=== PATIENT | male | born 1925 | race Caucasian/White ===

== ENCOUNTER 2017-03-24 21:10 | Inpatient (IN) | payer MEDICARE, BC ==
[~2017-03-24] VITALS: Ht 185.4 cm; Wt 84.9 kg
[~2017-03-24 21:10] MED LIST: ACAR50TA PO; ASPI81TA82 PO; HYDR5TAB64 PO; LANTUS2P SC; LISI-360 PO; METO50CR PO; OCUVTAB4 PO
[2017-03-24 21:28] VITALS: BP 158/85; PULSE 103; RESP 20; TEMP 98.9; O2SAT 94
[2017-03-24 21:36] VITALS: O2SAT 94
[2017-03-24] MEDS ORDERED: SODIUM CHLORIDE 0.9% FLUSH 10 ML FLUSH IVF PRN (21:45)
[2017-03-24] MEDS ORDERED: METF500T4 PO (21:46)
[2017-03-24] MEDS ORDERED: CLON0.1T PO (21:46)
[2017-03-24] MEDS ORDERED: ASPI81CH CHEW (21:46)
[2017-03-24] MEDS ORDERED: ACAR50TA PO (21:46)
[2017-03-24] MEDS ORDERED: HYDR5TAB64 PO (21:46)
[2017-03-24] MEDS ORDERED: METO50TA11 PO (21:46)
[2017-03-24] MEDS ORDERED: GLYB5TAB3 PO (21:46)
[2017-03-24] MEDS ORDERED: LISI10TA3 PO (21:46)
[2017-03-24] MEDS ORDERED: PRESCAP (21:46)
[2017-03-24] MEDS ORDERED: MIRA25TA PO (21:46)
--- NOTE | 2017-03-24 21:56 | RADRPT ---
EXAM DATE/TIME: 03/24/2017 21:46 [facility] COMPARISON: No previous studies available for comparison. INDICATIONS : Syncope. Altered mental status. MEDICAL HISTORY : Hypertension. SURGICAL HISTORY : None. ENCOUNTER: Initial ACUITY: 1 day PAIN SCORE: Non-responsive. LOCATION: Bilateral chest FINDINGS: A single view of the chest demonstrates bibasilar patchy densities. Tortuous thoracic aorta. Heart no rmal in size. The cardiomediastinal contours are unremarkable. Osseous structures are intact. CONCLUSION: Bibasilar patchy infiltrate. Kris Levin MD on March 24, 2017 at 21:53 Board Certified Radiologist. This report was verified electronically.
--- NOTE | 2017-03-24 22:27 | RADRPT ---
EXAM DATE/TIME: 03/24/2017 22:08 [facility] COMPARISON: CT BRAIN W/O CONTRAST, February 19, 2016, 18:09. INDICATIONS : Altered mental status. RADIATION DOSE: 46.81 CTDIvol (mGy) MEDICAL HISTORY : Hypertension. Hernia, hiatal. Benign prostatic hyperplasia, (BPH) SURGICAL HISTORY : Tonsillectomy. ENCOUNTER: Initial ACUITY: 1 day PAIN SCALE: 0/10 LOCATION: cranial TECHNIQUE: Multiple contiguous axial images were obtained of the head. Using automated exposure control and adj ustment of the mA and/or kV according to patient size, radiation dose was kept as low as reasonably a chievable to obtain optimal diagnostic quality images. FINDINGS: CEREBRUM: The ventricles are normal for age. No evidence of midline shift, mass lesion, hemorrhage or acute in farction. No extra-axial fluid collections are seen. POSTERIOR FOSSA: The cerebellum and brainstem are intact. The 4th ventricle is midline. The cerebellopontine angle i s unremarkable. EXTRACRANIAL: The visualized portion of the orbits is intact. SKULL: The calvaria is intact. No evidence of skull fracture. CONCLUSION: No acute intracranial disease. Kris Levin MD on March 24, 2017 at 22:24 Board Certified Radiologist. This report was verified electronically.
[2017-03-24 22:29] LABS: BACTERIA, URINE OCC /hpf; BLOOD, URINE TRACE (NEG); GLUCOSE,URINE 1000 mg/dL (NEG); KETONE, URINE TRACE mg/dL (NEG); NITRITE,URINE NEG (NEG); URINE COLOR LIGHT-YELLOW (YELLW/STRAW)
[2017-03-24 22:30] LABS: COMMENT (UR) CATH-CULTURE IND; CULTURE IF INDICATED CATH CULTURE IND
[2017-03-24 22:31] LABS: AUTOMATED NEUTROPHIL # 20.8 TH/MM3 (1.8-7.7); BASOPHIL # 0.1 TH/MM3 (0-0.2); BASOPHIL % 0.3 % (0.0-2.0); EOSINOPHIL % 0.1 % (0.0-4.0); HEMATOCRIT 39.7 % (39.0-51.0); LYMPH % 2.2 % (9.0-44.0); LYMPHOCYTE # 0.5 TH/MM3 (1.0-4.8); MEAN CELL VOLUME 87.9 FL (80.0-100.0); MEAN CORPUSCULAR HEMOGLOBIN 29.6 PG (27.0-34.0); MEAN CORPUSCULAR HGB CONC 33.7 % (32.0-36.0); MONO % 5.9 % (0.0-8.0); NEUT % 91.5 % (16.0-70.0); PLATELET COUNT 327 TH/MM3 (150-450); RED BLOOD COUNT 4.52 MIL/MM3 (4.50-5.90); RED CELL DISTRIBUTION WIDTH 14.8 % (11.6-17.2); WHITE BLOOD COUNT 22.8 TH/MM3 (4.0-11.0)
[2017-03-24 22:33] LABS: HEMO FLAGS AUTO DIFF
[2017-03-24] MEDS ORDERED: AZITHROMYCIN INJ 500 MG in SODIUM CHLOR 0.9% 250 ML INJ 250 ML IV ONE (22:45)
[2017-03-24] MEDS ORDERED: cefTRIAXone INJ 1,000 MG in SODIUM CHLORIDE 0.9% INJ 100 ML IV ONE (22:45)
[2017-03-24 22:59] LABS: ALKALINE PHOSPHATASE 90 U/L (45-117); ALT (GPT) 17 U/L (12-78); ANION GAP 8 MEQ/L (5-15); AST (GOT) 37 U/L (15-37); BICARBONATE 26.6 MEQ/L (21.0-32.0); BLOOD UREA NITROGEN 27 MG/DL (7-18); CHLORIDE 100 MEQ/L (98-107); CREATINE KINASE 116 U/L (39-308); GLOMERULAR FILTRATION RATE 77 ML/MIN (>89); POTASSIUM 4.4 MEQ/L (3.5-5.1); SODIUM (NA) 135 MEQ/L (136-145); TOTAL BILIRUBIN ADULT 0.7 MG/DL (0.2-1.0)
[2017-03-24 23:00] LABS: BANDS 3 % (0-6); NEUTROPHIL # MANUAL DIFF 21.2 TH/MM3 (1.8-7.7); POLYS (SEG NEUTROPHILS) 90 % (16-70); SCAN/DIFF FINAL DIFF MANUAL; WBC DIFF SAMPLE 100
[2017-03-24 23:01] LABS: OVALOCYTES 1+ (NORMAL); PLATELET ESTIMATE SMEAR NORMAL (NORMAL); PLATELET MORPHOLOGY NORMAL (NORMAL)
[2017-03-24 23:02] LABS: ACANTHOCYTES OCC (NORMAL); KERATOCYTES OCC (NORMAL); TOXIC VACUOLATION PRESENT (NONE SEEN)
--- NOTE | 2017-03-24 23:05 | PD ---
HPI Chief Complaint: Altered Mental Status Time Seen by Provider: 21:32 Travel History International Travel<30 days: No Contact w/Intl Traveler<30days: No Traveled to known affect area: No History of Present Illness HPI Patient is a 89 year old male who comes in because his friend found him altered today. Per the friend, she came over to check on him and found him laying on the couch in a very warm house under her blanket. She says that he seemed a little out of it, so she eventually convinced him to come to the emergency department. EMS said that he seemed altered when they arrived, but began to improve with IV fluids and oxygen. He has no complaints at this time. PFSH Past Medical History Hx Anticoagulant Therapy: Yes (162 ASA DAILY) Cardiovascular Problems: Yes (HTN) Diabetes: Yes Patient Takes Glucophage: Yes (03/24/2017) Diminished Hearing: No Genitourinary: Yes (BPH) Hiatal Hernia: Yes Hypertension: Yes Musculoskeletal: Yes (SCIATICA) Immunizations Current: No Ulcer: Yes (H.PYLORI) Tetanus Vaccination: < 5 Years Influenza Vaccination: No Past Surgical History Abdominal Surgery: Yes (PERF STOMACH) Eye Surgery: Yes (CATARACTS) Tonsillectomy: Yes Social History Alcohol Use: No Tobacco Use: No Substance Use: No Allergies-Medications (Allergen,Severity, Reaction): Coded Allergies: No Known Allergies (Verified , 02/19/16) Reported Meds & Prescriptions Reported Meds & Active Scripts Active Reported Myrbetriq (Mirabegron) 25 Mg Tab 25 Mg PO DAILY Glyburide 5 Mg Tab 5 Mg PO DAILY Take with meals at the same time each day Metformin ER (Metformin HCl) 500 Mg Leanne 500 Mg PO BID With evening meal Clonidine (Clonidine HCl) 0.1 Mg Tab 0.1 Mg PO DAILY PRN Preservision Areds (Multiple Vitamins W/ Minerals) 1 Cap Cap BID Aspirin 81 Mg Chew 81 Mg CHEW BID Lisinopril 10 Mg Tab 10 Mg PO HS Metoprolol Succinate ER 24 HR (Metoprolol Succinate) 50 Mg Tab 50 Mg PO BID Acarbose 50 Mg Tab 50 Mg PO AC DINNER Hydrocortisone 5 Mg Tab 5 Mg PO BID Take with food to decrease GI upset Review of Systems ROS Limitations: Altered Mental Status Physical Exam Narrative GENERAL: Awake and alert, in no acute distress. SKIN: Focused skin assessment warm/dry. HEAD: Atraumatic. Normocephalic. EYES: Pupils equal and round. No scleral icterus. Extraocular movements intact. ENT: Mucous membranes pink and moist. NECK: Trachea midline. No JVD. CARDIOVASCULAR: Regular rate and rhythm. No murmur appreciated. RESPIRATORY: No accessory muscle use. Crackles at the bases of both lungs. Breath sounds equal bilaterally. GASTROINTESTINAL: Abdomen soft, non-tender, nondistended. Hepatic and splenic margins not palpable. MUSCULOSKELETAL: No obvious deformities. No clubbing. No cyanosis. No edema. NEUROLOGICAL: Awake and alert. No obvious cranial nerve deficits. Motor grossly within normal limits. Normal speech. PSYCHIATRIC: Appropriate mood and affect; insight and judgment normal. Data Data Last Documented VS Vital Signs Date Time Temp Pulse Resp B/P Pulse Ox O2 Delivery O2 Flow Rate FiO2 03/24/17 21:36 94 Nasal Cannula 2 03/24/17 21:28 98.9 103 20 158/85 Orders Electrocardiogram (03/24/17 21:33) Ammonia (03/24/17 21:33) Complete Blood Count With Diff (03/24/17 21:33) Comprehensive Metabolic Panel (03/24/17 21:33) Creatine Kinase (Cpk) (03/24/17 21:33) Prothrombin Time / Inr (Pt) (03/24/17 21:33) Act Partial Throm Time (Ptt) (03/24/17 21:33) Troponin I (03/24/17 21:33) Thyroid Stimulating Hormone (03/24/17 21:33) Lactic Acid Sepsis Protocol (03/24/17 21:33) Urinalysis - C+S If Indicated (03/24/17 21:33) Ua Includes Microscopic (03/24/17 21:33) Blood Culture (03/24/17 21:33) Chest, Single Ap (03/24/17 21:33) Ct Brain W/O Iv Contrast(Rout) (03/24/17 21:33) Blood Glucose (03/24/17 21:33) Ecg Monitoring (03/24/17 21:33) Iv Access Insert/Monitor (03/24/17 21:33) Oximetry (03/24/17 21:33) Oxygen Administration (03/24/17 21:33) Sodium Chloride 0.9% Flush (Ns Flush) (03/24/17 21:45) Cath For Specimen (03/24/17 21:33) Urine Culture (03/24/17 22:00) Ceftriaxone Inj (Rocephin Inj) (03/24/17 22:45) Azithromycin Inj (Zithromax Inj) (03/24/17 22:45) Admit Order (Ed Use Only) (03/24/17 ) Labs Laboratory Tests Test 03/24/17 03/24/17 21:55 22:00 White Blood Count 22.8 TH/MM3 Red Blood Count 4.52 MIL/MM3 Hemoglobin 13.4 GM/DL Hematocrit 39.7 % Mean Corpuscular Volume 87.9 FL Mean Corpuscular Hemoglobin 29.6 PG Mean Corpuscular Hemoglobin 33.7 % Concent Red Cell Distribution Width 14.8 % Platelet Count 327 TH/MM3 Mean Platelet Volume 8.1 FL Neutrophils (%) (Auto) 91.5 % Lymphocytes (%) (Auto) 2.2 % Monocytes (%) (Auto) 5.9 % Eosinophils (%) (Auto) 0.1 % Basophils (%) (Auto) 0.3 % Neutrophils # (Auto) 20.8 TH/MM3 Lymphocytes # (Auto) 0.5 TH/MM3 Monocytes # (Auto) 1.4 TH/MM3 Eosinophils # (Auto) 0.0 TH/MM3 Basophils # (Auto) 0.1 TH/MM3 CBC Comment AUTO DIFF Differential Total Cells 100 Counted Neutrophils % (Manual) 90 % Band Neutrophils % 3 % Monocytes % 7 % Neutrophils # (Manual) 21.2 TH/MM3 Differential Comment FINAL DIFF MANUAL Toxic Vacuolation PRESENT Platelet Estimate NORMAL Platelet Morphology Comment NORMAL Ovalocytes 1+ Acanthocytes OCC Keratocytes OCC Prothrombin Time 10.9 SEC Prothromb Time International 1.0 RATIO Ratio Activated Partial 30.8 SEC Thromboplast Time Sodium Level 135 MEQ/L Potassium Level 4.4 MEQ/L Chloride Level 100 MEQ/L Carbon Dioxide Level 26.6 MEQ/L Anion Gap 8 MEQ/L Blood Urea Nitrogen 27 MG/DL Creatinine 0.92 MG/DL Estimat Glomerular Filtration 77 ML/MIN Rate Random Glucose 315 MG/DL Calcium Level 8.4 MG/DL Total Bilirubin 0.7 MG/DL Aspartate Amino Transf 37 U/L (AST/SGOT) Alanine Aminotransferase 17 U/L (ALT/SGPT) Alkaline Phosphatase 90 U/L Total Creatine Kinase 116 U/L Troponin I LESS THAN 0.02 NG/ML Total Protein 7.3 GM/DL Albumin 3.0 GM/DL Thyroid Stimulating Hormone 1.000 uIU/ML 3rd Gen Urine Color LIGHT-YELLOW Urine Turbidity HAZY Urine pH 6.0 Urine Specific [place] 1.017 Urine Protein TRACE mg/dL Urine Glucose (UA) 1000 mg/dL Urine Ketones TRACE mg/dL Urine Occult Blood TRACE Urine Nitrite NEG Urine Bilirubin NEG Urine Urobilinogen LESS THAN 2.0 MG/DL Urine Leukocyte Esterase LARGE Urine RBC 13 /hpf Urine WBC 31 /hpf Urine Bacteria OCC /hpf Microscopic Urinalysis Comment CATH-CULTURE IND Lactic Acid Level 1.6 mmol/L Ammonia 27 MCMOL/L MDM Medical Decision Making Medical Screen Exam Complete: Yes Emergency Medical Condition: Yes Medical Record Reviewed: Yes Interpretation(s) ECG shows sinus rhythm at 98, left anterior fascicular block Differential Diagnosis Sepsis versus pneumonia versus UTI versus ICH versus CVA Narrative Course Patient is an 89-year-old male comes in due to altered mental status. Exam shows crackles at the bases of both lungs, patient was hypoxic without supplemental oxygen. IV established, labs sent. Patient connected to the conveyor monitor, given oxygen via nasal cannula. Labs show an elevated white blood cell count 22.8. Urinalysis is positive for infection. X-ray shows bilateral lower lobe infiltrates. Patient given Rocephin and azithromycin. Given IV fluids. Patient admitted for further management. Diagnosis Primary Impression: Pneumonia Qualified Code: J18.9 - Pneumonia of both lower lobes due to infectious organism Additional Impressions: UTI (urinary tract infection) Qualified Code: N30.00 - Acute cystitis without hematuria Hypoxia Admitting Information Admitting Physician Requests: Admit Kika Das MD March 24, 2017 23:05
[2017-03-24 23:15] LABS: APTT (PATIENT) 30.8 SEC (24.3-30.1); PROTHROMBIN TIME - PATIENT 10.9 SEC (9.8-11.6)
[2017-03-24] MEDS ORDERED: GLUCAGON 1 MG/ML VIAL OTHER PRN (23:30)
[2017-03-24] MEDS ORDERED: SODIUM CHLORIDE 0.9% FLUSH 10 ML FLUSH IV FLUSH PRN (23:30)
[2017-03-24] MEDS ORDERED: DEXTROSE 50% IN WATER 50 ML VIAL(D50) IV PUSH PRN (23:30)
[2017-03-24] MEDS ORDERED: NALOXONE HCL 0.4 MG/ML AMP IV PRN (23:30)
[2017-03-24] MEDS ORDERED: LEVOFLOXACIN 750 MG PREMIX INJ 150 ML IV SCH (23:30)
[2017-03-25] VITALS (11 sets, daily range): BP systolic 117–150; BP diastolic 57–76; PULSE 84–100; RESP 18; TEMP 97.3–100; O2SAT 92–100
[2017-03-25] MEDS: INSULIN ASPART SUPPLEMENTAL SCALE SQ SCH ×4 (06:14→21:23)
[2017-03-25 06:27] LABS: BICARBONATE 23.5 MEQ/L (21.0-32.0); POTASSIUM 4.6 MEQ/L (3.5-5.1)
[2017-03-25 07:17] LABS: AUTOMATED NEUTROPHIL # 16.6 TH/MM3 (1.8-7.7); BASOPHIL # 0.1 TH/MM3 (0-0.2); BASOPHIL % 0.4 % (0.0-2.0); EOSINOPHIL % 0.2 % (0.0-4.0); HEMATOCRIT 42.1 % (39.0-51.0); HEMO FLAGS DIFF FINAL; LYMPH % 6.3 % (9.0-44.0); LYMPHOCYTE # 1.1 TH/MM3 (1.0-4.8); MEAN CELL VOLUME 87.7 FL (80.0-100.0); MEAN CORPUSCULAR HEMOGLOBIN 29.5 PG (27.0-34.0); MEAN CORPUSCULAR HGB CONC 33.7 % (32.0-36.0); NEUT % 91.1 % (16.0-70.0); PLATELET COUNT 264 TH/MM3 (150-450); RED CELL DISTRIBUTION WIDTH 14.8 % (11.6-17.2); WHITE BLOOD COUNT 18.2 TH/MM3 (4.0-11.0)
[2017-03-25] MEDS: SODIUM CHLORIDE 0.9% FLUSH 10 ML FLUSH IV FLUSH SCH ×2 (08:14→21:00)
[2017-03-25] MEDS ORDERED: PNEUMOCOCCAL POLYVALENT INJ 25 MCG/0.5 ML SYR IM ONE (09:00)
--- NOTE | 2017-03-25 11:00 | HHI.HP ---
HPI Service [facility] Primary Care Physician Chris Leblanc MD Admission Diagnosis pneumonia Diagnoses: Travel History International Travel<30 Days: No Contact w/Intl Traveler <30 Da: No Traveled to Known Affected Are: No History of Present Illness Patient is a 89-year-old male with past medical history of BPH, and labile diabetes, hypertension, history of H. pylori presented to the emergency room with fevers and chills. The LAD at the medical center who happens to visit him was concerned because he was having sweats and was not feeling well. Patient doesn' t quite remember all the events however he tells me he had been having low- grade fevers and sweats which started about noon yesterday. Patient does admit to burning with urination however he states the urinary frequency is normal for him he doesn't recall taking his temperature. He tells me that his blood sugars are very labile and he didn't seem to tolerate the Lantus as an outpatient therefore that was discontinued. He was nauseous earlier today but no vomiting. He denies any chest pain or shortness of breath. He denies any cough. He denies any runny nose but admits to some stuffy nose. No ear pain or sore throat. Review of Systems Except as stated in HPI: all other systems reviewed are Neg Past Family Social History Past Medical History BPH, diabetes, hypertension, history of H. pylori Past Surgical History Stomach perforation, fatty tumor removal Reported Medications Reported Meds & Active Scripts Active Reported Myrbetriq (Mirabegron) 25 Mg Tab 25 Mg PO DAILY Glyburide 5 Mg Tab 5 Mg PO DAILY Take with meals at the same time each day Metformin ER (Metformin HCl) 500 Mg Leanne 500 Mg PO BID With evening meal Clonidine (Clonidine HCl) 0.1 Mg Tab 0.1 Mg PO DAILY PRN Preservision Areds (Multiple Vitamins W/ Minerals) 1 Cap Cap BID Aspirin 81 Mg Chew 81 Mg CHEW BID Lisinopril 10 Mg Tab 10 Mg PO HS Metoprolol Succinate ER 24 HR (Metoprolol Succinate) 50 Mg Tab 50 Mg PO BID Acarbose 50 Mg Tab 50 Mg PO AC DINNER Hydrocortisone 5 Mg Tab 5 Mg PO BID Take with food to decrease GI upset Allergies: Coded Allergies: No Known Allergies (Verified , 02/19/16) Family History Mother in her 50s of an unknown cancer, father had emphysema Social History Quit smoking at age 52 used to smoke on and off as a teenager until then. Used to drink beer but quit at age 52 Denies illegal drug use Physical Exam Vital Signs Vital Signs Date Time Temp Pulse Resp B/P Pulse Ox O2 Delivery O2 Flow Rate FiO2 03/25/17 08:25 Nasal Cannula 2.00 03/25/17 08:03 90 03/25/17 08:00 97.6 89 18 149/63 97 03/25/17 04:00 97.8 93 18 147/76 100 03/25/17 01:06 Nasal Cannula 2.00 03/25/17 00:37 86 03/25/17 00:30 97.3 84 18 117/57 96 03/25/17 00:05 100.0 84 18 134/73 96 Nasal Cannula 2 03/24/17 21:36 94 Nasal Cannula 2 03/24/17 21:36 94 Nasal Cannula 2 03/24/17 21:28 98.9 103 20 158/85 94 Physical Exam GENERAL: This is a well-nourished, well-developed patient, in no apparent distress. SKIN: No rashes, ecchymoses or lesions. Cool and dry. HEAD: Atraumatic. Normocephalic. No temporal or scalp tenderness. EYES: Pupils equal round and reactive. Extraocular motions intact. No scleral icterus. No injection or drainage. ENT: Nose without drainage. Throat without erythema, tonsillar hypertrophy or exudate. Uvula midline. Airway patent. NECK: Trachea midline. No JVD or lymphadenopathy. Supple, nontender, no meningeal signs. CARDIOVASCULAR: Regular rate and rhythm without murmurs RESPIRATORY: ? Faint crackles at the bases. Breath sounds equal bilaterally. No wheezes GASTROINTESTINAL: Abdomen soft, non-tender, nondistended. No palpable masses. No guarding. MUSCULOSKELETAL: Extremities without edema. No joint tenderness, effusion, or edema noted. No calf tenderness. Negative Homans sign bilaterally. NEUROLOGICAL: Awake and alert. Cranial nerves II through XII intact. Motor and sensory grossly within normal limits. Five out of 5 muscle strength in all muscle groups. Normal speech. Laboratory Laboratory Tests Test 03/24/17 03/24/17 03/25/17 21:55 22:00 05:17 White Blood Count 22.8 18.2 Red Blood Count 4.52 4.80 Hemoglobin 13.4 14.2 Hematocrit 39.7 42.1 Mean Corpuscular Volume 87.9 87.7 Mean Corpuscular Hemoglobin 29.6 29.5 Mean Corpuscular Hemoglobin 33.7 33.7 Concent Red Cell Distribution Width 14.8 14.8 Platelet Count 327 264 Mean Platelet Volume 8.1 8.3 Neutrophils (%) (Auto) 91.5 91.1 Lymphocytes (%) (Auto) 2.2 6.3 Monocytes (%) (Auto) 5.9 2.0 Eosinophils (%) (Auto) 0.1 0.2 Basophils (%) (Auto) 0.3 0.4 Neutrophils # (Auto) 20.8 16.6 Lymphocytes # (Auto) 0.5 1.1 Monocytes # (Auto) 1.4 0.4 Eosinophils # (Auto) 0.0 0.0 Basophils # (Auto) 0.1 0.1 CBC Comment AUTO DIFF DIFF FINAL Differential Total Cells 100 Counted Neutrophils % (Manual) 90 Band Neutrophils % 3 Monocytes % 7 Neutrophils # (Manual) 21.2 Differential Comment FINAL DIFF MANUAL Toxic Vacuolation PRESENT Platelet Estimate NORMAL Platelet Morphology Comment NORMAL Ovalocytes 1+ Acanthocytes OCC Keratocytes OCC Prothrombin Time 10.9 Prothromb Time International 1.0 Ratio Activated Partial 30.8 Thromboplast Time Sodium Level 135 138 Potassium Level 4.4 4.6 Chloride Level 100 103 Carbon Dioxide Level 26.6 23.5 Anion Gap 8 12 Blood Urea Nitrogen 27 23 Creatinine 0.92 0.91 Estimat Glomerular Filtration 77 78 Rate Random Glucose 315 285 Calcium Level 8.4 8.6 Total Bilirubin 0.7 Aspartate Amino Transf 37 (AST/SGOT) Alanine Aminotransferase 17 (ALT/SGPT) Alkaline Phosphatase 90 Total Creatine Kinase 116 Troponin I LESS THAN 0.02 Total Protein 7.3 Albumin 3.0 Thyroid Stimulating Hormone 1.000 3rd Gen Urine Color LIGHT-YELLOW Urine Turbidity HAZY Urine pH 6.0 Urine Specific [place] 1.017 Urine Protein TRACE Urine Glucose (UA) 1000 Urine Ketones TRACE Urine Occult Blood TRACE Urine Nitrite NEG Urine Bilirubin NEG Urine Urobilinogen LESS THAN 2.0 Urine Leukocyte Esterase LARGE Urine RBC 13 Urine WBC 31 Urine Bacteria OCC Microscopic Urinalysis Comment CATH-CULTURE IND Lactic Acid Level 1.6 Ammonia 27 Hematology Comments Date/Time Procedure Status Source Growth 03/24/17 22:00 Urine Culture Worksheet Urine Catheterized Urine Pending 03/24/17 21:55 Aerobic Blood Culture Received Blood Peripheral Pending 03/24/17 21:55 Anaerobic Blood Culture Received Blood Peripheral Pending Result Diagram: 03/25/17 0503/25/17516 Imaging Last Impressions Head CT 03/24/172132 Signed Impressions: Service Date/Time: Friday, March 24, 2017 22:08 - CONCLUSION: No acute intracranial disease. Kris Levin MD Chest X-Ray 03/24/172132 Signed Impressions: Service Date/Time: Friday, March 24, 2017 21:46 - CONCLUSION: Bibasilar patchy infiltrate. Kris Levin MD Assessment and Plan Assessment and Plan Sepsis: Patient presented with tachycardia, leukocytosis up to 22.8 with a source of a urinary tract infection and early pneumonia. Patient received Rocephin and azithromycin one-time dose in the emergency room. I will continue IV Rocephin and by mouth azithromycin. Blood cultures negative 1 day and urine culture still pending. Continue to monitor. Encouraged use of incentive spirometer every hour while awake. Continue to monitor white count Leukocytosis: See above UTI: See above monitor. Urine cultures Pneumonia: Chest x-ray personally reviewed by me and is concerning for patchy infiltrates. See above BPH: Stable resume medication diabetes: Resume home medication and cover with low-dose NovoLog sliding scale at her blood sugars. Hypertension: Home medications resumed. Vasotec as needed for elevated blood pressures history of H. pylori: Stable DVT prophylaxis: Lovenox Code Status Full code Discussed Condition With Patient Leslie Aguilar MD March 25, 2017 11:00
[2017-03-25] MEDS ORDERED: GLUCAGON 1 MG/ML VIAL OTHER PRN (12:30)
[2017-03-25] MEDS ORDERED: DEXTROSE 50% IN WATER 50 ML VIAL(D50) IV PRN (12:30)
[2017-03-25] MEDS ORDERED: RESP: ALBUTEROL 2.5 MG/IPRATROPIUM 0.5 MG NEB (PRN) NEB (12:30)
[2017-03-25] MEDS: SODIUM CHLOR 0.9% 1000 ML INJ 1,000 ML IV SCH (13:09)
[2017-03-25] MEDS ORDERED: ENALAPRILAT 1.25 MG/ML VIAL IV PUSH PRN (14:00)
--- NOTE | 2017-03-25 14:18 | EKG ---
Date Performed: 03/24/2017 Time Performed: 21:46:59 PTAGE: 89 years EKG: Sinus rhythm RIGHT BUNDLE BRANCH BLOCK LEFT ANTERIOR FASCICULAR BLOCK LEFT VENTRICULAR HYPERTROPHY AND ST-T LYNNE E POSSIBLE SEPTAL MYOCARDIAL INFARCTION ABNORMAL ECG NO PREVIOUS TRACING DOCTOR: Daniel Figueredo Interpretating Date/Time 03/25/2017 14:16:56
[2017-03-25] MEDS: ENOXAPARIN SODIUM 40 MG/0.4 ML SYRINGE SQ SCH (14:56)
[2017-03-25] MEDS ORDERED: ACARBOSE 50 MG PO SCH (16:00)
[2017-03-25] MEDS: metFORMIN HCL 500 MG TAB PO SCH (16:51)
[2017-03-25] MEDS: METOPROLOL SUCCINATE 50 MG EXTENDED RELEASE TAB PO SCH (21:18)
[2017-03-25] MEDS: HYDROCORTISONE 10 MG TAB PO SCH (21:18)
[2017-03-25] MEDS: ASPIRIN 81 MG CHEW TAB CHEW SCH (21:18)
[2017-03-25] MEDS: LISINOPRIL 10 MG TAB PO SCH (21:19)
[2017-03-25] MEDS: AZITHROMYCIN 250 MG TAB PO SCH (22:09)
[2017-03-25] MEDS: cefTRIAXone INJ 1,000 MG in SODIUM CHLORIDE 0.9% INJ 100 ML IV SCH (22:10)
[2017-03-26] VITALS (9 sets, daily range): BP systolic 140–165; BP diastolic 64–80; PULSE 74–90; RESP 18–19; TEMP 97.5–99.3; O2SAT 92–98
[2017-03-26] MEDS: SODIUM CHLOR 0.9% 1000 ML INJ 1,000 ML IV SCH (01:41)
[2017-03-26] MEDS: INSULIN ASPART SUPPLEMENTAL SCALE SQ SCH ×4 (05:52→21:00)
[2017-03-26 05:55] LABS: AUTOMATED NEUTROPHIL # 8.1 TH/MM3 (1.8-7.7); BASOPHIL % 0.4 % (0.0-2.0); EOSINOPHIL # 0.1 TH/MM3 (0-0.4); HEMATOCRIT 37.4 % (39.0-51.0); HEMO FLAGS DIFF FINAL; LYMPH % 16.1 % (9.0-44.0); LYMPHOCYTE # 1.8 TH/MM3 (1.0-4.8); MEAN CELL VOLUME 87.7 FL (80.0-100.0); MEAN CORPUSCULAR HEMOGLOBIN 29.7 PG (27.0-34.0); MEAN CORPUSCULAR HGB CONC 33.8 % (32.0-36.0); NEUT % 72.5 % (16.0-70.0); PLATELET COUNT 265 TH/MM3 (150-450); RED BLOOD COUNT 4.27 MIL/MM3 (4.50-5.90); WHITE BLOOD COUNT 11.2 TH/MM3 (4.0-11.0)
[2017-03-26 06:22] LABS: BICARBONATE 26.4 MEQ/L (21.0-32.0); POTASSIUM 3.4 MEQ/L (3.5-5.1)
[2017-03-26] MEDS: ASPIRIN 81 MG CHEW TAB CHEW SCH ×2 (09:33→21:25)
[2017-03-26] MEDS: HYDROCORTISONE 10 MG TAB PO SCH ×2 (09:33→21:25)
[2017-03-26] MEDS: TOLTERODINE TARTRATE 2 MG CAP LA PO SCH (09:33)
[2017-03-26] MEDS: glyBURIDE 5 MG TAB PO SCH (09:33)
[2017-03-26] MEDS: SODIUM CHLORIDE 0.9% FLUSH 10 ML FLUSH IV FLUSH SCH ×2 (09:34→21:30)
[2017-03-26] MEDS: metFORMIN HCL 500 MG TAB PO SCH ×2 (09:34→18:20)
[2017-03-26] MEDS: METOPROLOL SUCCINATE 50 MG EXTENDED RELEASE TAB PO SCH ×2 (09:34→21:29)
[2017-03-26] MEDS ORDERED: POTASSIUM CHLORIDE 20 MEQ CONTROLLED RELEASE TAB PO ONE (10:15)
--- NOTE | 2017-03-26 10:32 | HHI.PR ---
Subjective Remarks Follow-up pneumonia. Patient denies chest pain, dyspnea, cough. He states that he feels very tired. Objective Vitals Vital Signs Date Time Temp Pulse Resp B/P Pulse Ox O2 Delivery O2 Flow Rate FiO2 03/26/17 08:12 97.9 90 18 158/74 94 03/26/17 04:00 99.3 79 18 146/65 96 03/26/17 04:00 Nasal Cannula 2.00 03/26/17 00:00 98.2 86 18 146/68 92 03/26/17 00:00 Nasal Cannula 2.00 03/25/17 20:00 Nasal Cannula 2.00 03/25/17 20:00 97.4 96 18 150/71 96 03/25/17 17:48 95 Nasal Cannula 2.00 03/25/17 16:00 97.9 100 18 126/61 95 03/25/17 12:00 98.1 99 18 136/61 92 03/25/17 12:00 Nasal Cannula 2.00 I/O 03/25/17 03/25/17 03/25/17 03/26/17 03/26/17 03/26/17 07:00 15:00 23:00 07:00 15:00 23:00 Intake Total 240 ml 796 ml 360 ml 75 ml Balance 240 ml 796 ml 360 ml 75 ml Intake Oral 240 ml 720 ml 360 ml 75 ml IV Total 76 ml # Voids 2 4 1 2 # Bowel Movements 0 1 0 0 Result Diagram: 03/26/17 0506 03/26/17 0506 Imaging Last Impressions Head CT 03/24/172132 Signed Impressions: Service Date/Time: Friday, March 24, 2017 22:08 - CONCLUSION: No acute intracranial disease. Kris Levin MD Chest X-Ray 03/24/172132 Signed Impressions: Service Date/Time: Friday, March 24, 2017 21:46 - CONCLUSION: Bibasilar patchy infiltrate. Kris Levin MD Objective Remarks General: Elderly male in no acute distress. Heart: Regular rate and rhythm. No murmur. Lungs: Scattered rales. Breathing is nonlabored. Abdomen: Soft, nontender, nondistended. Extremities: No lower extremity edema. Psych: Alert and oriented. Procedures None Urinary Catheter: No Vascular Central Line Catheter: No A/P Problem List: (1) Pneumonia ICD Code: J18.9 Status: Acute (2) UTI (urinary tract infection) ICD Code: N39.0 Status: Acute (3) Hypertension ICD Code: I10 Status: Chronic (4) Diabetes mellitus ICD Code: E11.9 Status: Chronic (5) Sepsis ICD Code: A41.9 Status: Resolved Assessment and Plan 1. Sepsis: Patient presented with tachycardia, leukocytosis. Source is UTI, pneumonia. Continue Rocephin, azithromycin. Blood cultures are negative so far. Urine culture pending. Sepsis has resolved. 2. Leukocytosis: Improving. Monitor labs. Continue antibiotics as above. 3. UTI: Continue Rocephin. Urine culture pending. 4. Pneumonia: Continue antibiotics, oxygen. 5. Diabetes mellitus: Monitor Accu-Cheks and cover with sliding scale insulin. 6. Hypertension: Continue home medications. Vasotec as needed. 7. DVT prophylaxis: Lovenox. Problem Qualifiers (1) Pneumonia: Qualified Code: J18.9 - Pneumonia of both lower lobes due to infectious organism (2) UTI (urinary tract infection): Qualified Code: N30.00 - Acute cystitis without hematuria (3) Diabetes mellitus: Jignesh Ibarra MD March 26, 2017 10:32
[2017-03-26] MEDS: ENOXAPARIN SODIUM 40 MG/0.4 ML SYRINGE SQ SCH (16:23)
[2017-03-26] MEDS: LISINOPRIL 10 MG TAB PO SCH (21:25)
[2017-03-26] MEDS: AZITHROMYCIN 250 MG TAB PO SCH (21:28)
[2017-03-26] MEDS: cefTRIAXone INJ 1,000 MG in SODIUM CHLORIDE 0.9% INJ 100 ML IV SCH (21:29)
[2017-03-27 04:27] VITALS: BP 163/79; PULSE 87; RESP 18; TEMP 97.6; O2SAT 96
[2017-03-27] MEDS: INSULIN ASPART SUPPLEMENTAL SCALE SQ SCH (05:52)
[2017-03-27 08:00] VITALS: BP 150/70; PULSE 90; RESP 18; TEMP 97.5; O2SAT 94
--- NOTE | 2017-03-27 08:24 | HHI.PR ---
Subjective Remarks Follow up pneumonia, hypokalemia, leukocytosis. The patient is feeling better today. He is anxious to go home. Still requiring oxygen intermittently. Concerned about his blood sugar. He states that he normally checks his blood sugar at 1 AM and eats a snack if it is low. Objective Vitals Vital Signs Date Time Temp Pulse Resp B/P Pulse Ox O2 Delivery O2 Flow Rate FiO2 03/27/17 04:27 97.6 87 18 163/79 96 03/27/17 04:00 Nasal Cannula 2.00 03/27/17 00:00 Nasal Cannula 2.00 03/26/17 23:15 97.7 87 18 165/80 93 03/26/17 20:00 Room Air 03/26/17 19:44 97.5 85 18 140/76 93 03/26/17 16:21 97.8 74 18 146/64 92 03/26/17 16:06 94 21 03/26/17 12:33 98.0 90 19 155/75 94 03/26/17 11:50 98 Nasal Cannula 2.00 I/O 03/26/17 03/26/17 03/26/17 03/27/17 03/27/17 03/27/17 07:00 15:00 23:00 07:00 15:00 23:00 Intake Total 75 ml 600 ml 240 ml 0 ml Output Total 3 ml Balance 75 ml 597 ml 240 ml 0 ml Intake Oral 75 ml 600 ml 240 ml 0 ml Output Urine Total 3 ml # Voids 2 5 5 # Bowel Movements 0 0 1 0 Result Diagram: 03/26/17 0506 03/26/17 0506 Imaging Last Impressions Head CT 03/24/172132 Signed Impressions: Service Date/Time: Friday, March 24, 2017 22:08 - CONCLUSION: No acute intracranial disease. Kris Levin MD Chest X-Ray 03/24/172132 Signed Impressions: Service Date/Time: Friday, March 24, 2017 21:46 - CONCLUSION: Bibasilar patchy infiltrate. Kris Levin MD Objective Remarks General: Elderly male in no acute distress. Heart: Regular rate and rhythm. No murmur. Lungs: Scattered rales. Breathing is nonlabored. Abdomen: Soft, nontender, nondistended. Extremities: No lower extremity edema. Psych: Alert and oriented. Procedures None Urinary Catheter: No Vascular Central Line Catheter: No A/P Problem List: (1) Pneumonia ICD Code: J18.9 Status: Acute (2) UTI (urinary tract infection) ICD Code: N39.0 Status: Acute (3) Hypertension ICD Code: I10 Status: Chronic (4) Diabetes mellitus ICD Code: E11.9 Status: Chronic (5) Sepsis ICD Code: A41.9 Status: Resolved Assessment and Plan 1. Sepsis: Patient presented with tachycardia, leukocytosis. Source is UTI, pneumonia. Continue Rocephin, azithromycin. Blood cultures are negative so far. Urine culture pending. Heart rate and WBCs have improved. 2. Leukocytosis: Resolved. Continue antibiotics as above. 3. UTI: Continue Rocephin. Urine culture presumptive ID of Viridans streptococcus. 4. Pneumonia: Improving. Continue antibiotics, oxygen. 5. Diabetes mellitus: Monitor Accu-Cheks and cover with sliding scale insulin. 6. Hypertension: Continue home medications. Vasotec as needed. 7. DVT prophylaxis: Lovenox. 8. Hypokalemia: Labs are pending this morning. Discharge Planning Anticipate discharge home tomorrow if patient continues to improve clinically. Problem Qualifiers (1) Pneumonia: Qualified Code: J18.9 - Pneumonia of both lower lobes due to infectious organism (2) UTI (urinary tract infection): Qualified Code: N30.00 - Acute cystitis without hematuria (3) Diabetes mellitus: Jignesh Ibarra MD March 27, 2017 08:24
[2017-03-27 08:45] LABS: AUTOMATED NEUTROPHIL # 5.8 TH/MM3 (1.8-7.7); BASOPHIL % 0.5 % (0.0-2.0); EOSINOPHIL # 0.4 TH/MM3 (0-0.4); HEMATOCRIT 39.4 % (39.0-51.0); HEMO FLAGS DIFF FINAL; LYMPH % 23.8 % (9.0-44.0); LYMPHOCYTE # 2.3 TH/MM3 (1.0-4.8); MEAN CELL VOLUME 87.9 FL (80.0-100.0); MONO % 12.1 % (0.0-8.0); NEUT % 59.6 % (16.0-70.0); PLATELET COUNT 251 TH/MM3 (150-450); RED BLOOD COUNT 4.48 MIL/MM3 (4.50-5.90); WHITE BLOOD COUNT 9.7 TH/MM3 (4.0-11.0)
[2017-03-27 09:00] LABS: BICARBONATE 28.4 MEQ/L (21.0-32.0); POTASSIUM 3.6 MEQ/L (3.5-5.1)
[2017-03-27] MEDS ORDERED: GLUCAGON 1 MG/ML VIAL OTHER PRN (09:00)
[2017-03-27] MEDS ORDERED: DEXTROSE 50% IN WATER 50 ML VIAL(D50) IV PRN (09:00)
[2017-03-27] MEDS: HYDROCORTISONE 10 MG TAB PO SCH ×2 (09:18→21:46)
[2017-03-27] MEDS: glyBURIDE 5 MG TAB PO SCH (09:18)
[2017-03-27] MEDS: TOLTERODINE TARTRATE 2 MG CAP LA PO SCH (09:18)
[2017-03-27] MEDS: METOPROLOL SUCCINATE 50 MG EXTENDED RELEASE TAB PO SCH ×2 (09:18→21:44)
[2017-03-27] MEDS: metFORMIN HCL 500 MG TAB PO SCH ×2 (09:18→17:10)
[2017-03-27] MEDS: ASPIRIN 81 MG CHEW TAB CHEW SCH ×2 (09:18→21:44)
[2017-03-27] MEDS: SODIUM CHLORIDE 0.9% FLUSH 10 ML FLUSH IV FLUSH SCH ×2 (09:18→21:44)
[2017-03-27 12:00] VITALS: BP 128/62; PULSE 71; RESP 20; TEMP 98; O2SAT 92
[2017-03-27] MEDS: ENOXAPARIN SODIUM 40 MG/0.4 ML SYRINGE SQ SCH (14:58)
[2017-03-27 16:00] VITALS: BP 139/67; PULSE 73; RESP 20; TEMP 97.6; O2SAT 94
[2017-03-27 19:45] VITALS: BP 161/77; PULSE 87; RESP 18; TEMP 98.3; O2SAT 92
[2017-03-27] MEDS: LISINOPRIL 10 MG TAB PO SCH (21:43)
[2017-03-27] MEDS: cefTRIAXone INJ 1,000 MG in SODIUM CHLORIDE 0.9% INJ 100 ML IV SCH (21:44)
[2017-03-27] MEDS: AZITHROMYCIN 250 MG TAB PO SCH (21:50)
[2017-03-27 23:28] VITALS: BP 171/81; PULSE 79; RESP 18; TEMP 98.1; O2SAT 91
[2017-03-28] VITALS: BP 138/56
[2017-03-28 04:08] VITALS: BP 159/79; PULSE 84; RESP 18; TEMP 98.2; O2SAT 92
[2017-03-28] MEDS: TOLTERODINE TARTRATE 2 MG CAP LA PO SCH (08:09)
[2017-03-28] MEDS: SODIUM CHLORIDE 0.9% FLUSH 10 ML FLUSH IV FLUSH SCH (08:09)
[2017-03-28] MEDS: HYDROCORTISONE 10 MG TAB PO SCH (08:09)
[2017-03-28] MEDS: glyBURIDE 5 MG TAB PO SCH (08:09)
[2017-03-28] MEDS: metFORMIN HCL 500 MG TAB PO SCH (08:09)
[2017-03-28] MEDS: METOPROLOL SUCCINATE 50 MG EXTENDED RELEASE TAB PO SCH (08:09)
[2017-03-28] MEDS: ASPIRIN 81 MG CHEW TAB CHEW SCH (08:09)
[2017-03-28 09:16] VITALS: O2SAT 96
[2017-03-28] MEDS ORDERED: CEFU1TAB20 PO (09:55)
[2017-03-28] MEDS ORDERED: AZIT250T3 PO (09:55)
--- NOTE | 2017-03-28 09:56 | HHI.DCPOC ---
Discharge Care Plan Diagnosis: (1) Hypoxia (2) Diabetes mellitus (3) Sepsis (4) UTI (urinary tract infection) (5) Hypertension (6) Pneumonia Goals to Promote Your Health * To prevent worsening of your condition and complications * To maintain your health at the optimal level Directions to Meet Your Goals Take your medications as prescribed Follow your dietary instruction Follow activity as directed Keep your appointments as scheduled Take your immunizations and boosters as scheduled If your symptoms worsen call your PCP, if no PCP go to Urgent Care Center or Emergency Room Smoking is Dangerous to Your Health. Avoid second hand smoke Call the 24-hour hour crisis hotline for domestic abuse at Jignesh Ibarra MD March 28, 2017 09:56
--- NOTE | 2017-03-28 09:59 | HHI.FF ---
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 My clinical findings support the need for the requested home health care services because: High risk of falls I certify that my clinical findings support that this patient is homebound because: Unsteady gait/balance Jignesh Ibarra MD March 28, 2017 09:59
--- NOTE | 2017-03-28 10:01 | HHI.DS ---
Discharge Summary Admission Date March 24, 2017 at 23:11 Discharge Date: March 28, 2017 Admitting Diagnosis pneumonia (1) Pneumonia ICD Code: J18.9 (2) UTI (urinary tract infection) ICD Code: N39.0 (3) Hypertension ICD Code: I10 (4) Diabetes mellitus ICD Code: E11.9 (5) Sepsis ICD Code: A41.9 Procedures None Brief History - From Admission Patient is a 89-year-old male with past medical history of BPH, and labile diabetes, hypertension, history of H. pylori presented to the emergency room with fevers and chills. The LAD at [facility] who happens to visit him was concerned because he was having sweats and was not feeling well. Patient doesn' t quite remember all the events however he tells me he had been having low- grade fevers and sweats which started about noon yesterday. Patient does admit to burning with urination however he states the urinary frequency is normal for him he doesn't recall taking his temperature. He tells me that his blood sugars are very labile and he didn't seem to tolerate the Lantus as an outpatient therefore that was discontinued. He was nauseous earlier today but no vomiting. He denies any chest pain or shortness of breath. He denies any cough. He denies any runny nose but admits to some stuffy nose. No ear pain or sore throat. CBC/BMP: 03/27/17 0742 03/27/17 0742 Significant Findings Laboratory Tests Test 03/26/17 03/27/17 05:06 07:42 White Blood Count 11.2 TH/MM3 (4.0-11.0) Red Blood Count 4.27 MIL/MM3 4.48 MIL/MM3 (4.50-5.90) (4.50-5.90) Hemoglobin 12.7 GM/DL (13.0-17.0) Hematocrit 37.4 % (39.0-51.0) Neutrophils (%) (Auto) 72.5 % (16.0-70.0) Monocytes (%) (Auto) 10.0 % 12.1 % (0.0-8.0) (0.0-8.0) Neutrophils # (Auto) 8.1 TH/MM3 (1.8-7.7) Monocytes # (Auto) 1.1 TH/MM3 1.2 TH/MM3 (0-0.9) (0-0.9) Potassium Level 3.4 MEQ/L (3.5-5.1) Random Glucose 179 MG/DL 225 MG/DL (74-106) (74-106) Calcium Level 8.3 MG/DL (8.5-10.1) Imaging Last Impressions Head CT 03/24/172132 Signed Impressions: Service Date/Time: Friday, March 24, 2017 22:08 - CONCLUSION: No acute intracranial disease. Kris Levin MD Chest X-Ray 03/24/172132 Signed Impressions: Service Date/Time: Friday, March 24, 2017 21:46 - CONCLUSION: Bibasilar patchy infiltrate. Kris Levin MD PE at Discharge General: Elderly male in no acute distress. Heart: Regular rate and rhythm. No murmur. Lungs: Auscultation bilaterally without wheezes, rales, or rhonchi. Breathing is nonlabored. Abdomen: Soft, nontender, nondistended. Extremities: No lower extremity edema. Psych: Alert and oriented. Pt update on day of discharge The patient has no complaints today. He states that he is ready to go home. He has been walking around the room with a walker. Denies dyspnea, chest pain. Hospital Course The patient was admitted for treatment of sepsis secondary to pneumonia. He was started on IV antibiotics. He showed clinical improvement throughout the hospitalization. Oxygen was weaned off. Home oxygen walk test was done and he had room air O2 sat of 96% at rest and 92% on exertion. He was felt to be stable for discharge home with home health care. Pt Condition on Discharge: Stable Discharge Disposition: Disch w/ Home Health Serv Discharge Time: > 30 minutes Discharge Instructions DIET: Follow Instructions for: Heart Healthy Diet, Diabetic Diet Activities you can perform: Regular-No Restrictions Follow up Referrals: PCP Follow-up - 1 Week New Medications: Cefuroxime (Cefuroxime) 500 Mg Tab 500 MG PO BID Infection #6 Ref 0 TAB Azithromycin (Azithromycin) 250 Mg Tab 500 MG PO Q24H Infection #2 Ref 0 TAB Continued Medications: Acarbose (Acarbose) 50 Mg Tab 50 MG PO AC DINNER Blood Sugar Management #30 Ref 0 TAB Aspirin (Aspirin) 81 Mg Chew 81 MG CHEW BID Ref 0 TAB Clonidine (Clonidine) 0.1 Mg Tab 0.1 MG PO DAILY PRN INCREASE IN BLOOD PRESSURE Ref 0 TAB Glyburide (Glyburide) 5 Mg Tab 5 MG PO DAILY Take with meals at the same time each day Blood Sugar Management Ref 0 TAB Hydrocortisone (Hydrocortisone) 5 Mg Tab 5 MG PO BID Take with food to decrease GI upset Ref 0 TAB Lisinopril (Lisinopril) 10 Mg Tab 10 MG PO HS Ref 0 TAB Metformin ER (Metformin ER) 500 Mg Leanne 500 MG PO BID With evening meal Blood Sugar Management Ref 0 TAB Metoprolol Succinate ER 24 HR (Metoprolol Succinate ER 24 HR) 50 Mg Tab 50 MG PO BID #30 Ref 0 TAB Mirabegron (Myrbetriq) 25 Mg Tab 25 MG PO DAILY Urinary Symptom Managemen Ref 0 TAB Multiple Vitamins W/ Minerals (Preservision Areds) 1 Cap Cap BID Jignesh Ibarra MD March 28, 2017 10:01
[2017-03-28 12:00] VITALS: BP 159/82; PULSE 79; RESP 18; TEMP 97.7; O2SAT 92
[2017-03-28] MEDS: ENOXAPARIN SODIUM 40 MG/0.4 ML SYRINGE SQ SCH (13:16)
== END 2017-03-28 16:05 | disposition home or self-care (01) | DRG 871 ==
LOC: NEPC 21:10 → NEDA 23:11 → N04B 03-25 00:20
PROVIDERS: ADMIT Family Medicine; ATTEND Family Medicine
DX: A41.9 Sepsis, unspecified organism (principal); J18.9 Pneumonia, unspecified organism; E11.9 Type 2 diabetes mellitus without complications; N39.0 Urinary tract infection, site not specified; N40.0 Benign prostatic hyperplasia without lower urinary tract symptoms; E87.6 Hypokalemia; I10 Essential (primary) hypertension; Z87.891 Personal history of nicotine dependence; Z79.84 Long term (current) use of oral hypoglycemic drugs
CPT/HCPCS: 70450; 71010; 80048; 80053; 81001; 82140; 82550; 82948; 83605; 84443; 84484; 85007; 85025; 85027; 85610; 85730; 87040; 87086; 93005; 94150; 94620; J0456; J0696; J1650; J1815; J1956; J7030; J7050

== ENCOUNTER 2017-07-22 07:07 | Inpatient (IN) | payer MEDICARE, BC ==
[2017-07-22] VITALS (8 sets, daily range): BP systolic 123–157; BP diastolic 66–89; PULSE 58–116; RESP 18–22; TEMP 96.4–98.5; O2SAT 91–97
[~2017-07-22] VITALS: Ht 185.4 cm; Wt 77.3 kg
[~2017-07-22 07:07] MED LIST changes: +ASPI81CH CHEW; -ASPI81TA82 PO; +AZIT250T3 PO; +CEFU1TAB20 PO; +CLON0.1T PO; +GLYB5TAB3 PO; -LANTUS2P SC; -LISI-360 PO; +LISI10TA3 PO; +METF500T4 PO; -METO50CR PO; +METO50TA11 PO; +MIRA25TA PO; -OCUVTAB4 PO; +PRESCAP
[2017-07-22] MEDS ORDERED: SODIUM CHLOR 0.9% 1000 ML INJ 1,000 ML IV ONE ×2 (07:30)
[2017-07-22] MEDS ORDERED: INSULIN HUMAN REGULAR 1,000 UNITS/10 ML VIAL IV PUSH ONE (07:30)
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
[2017-07-22 07:47] LABS: AUTOMATED NEUTROPHIL # 15.9 TH/MM3 (1.8-7.7); BASOPHIL % 0.1 % (0.0-2.0); HEMATOCRIT 39.8 % (39.0-51.0); HEMO FLAGS DIFF FINAL; LYMPH % 4.5 % (9.0-44.0); LYMPHOCYTE # 0.8 TH/MM3 (1.0-4.8); MEAN CELL VOLUME 89.6 FL (80.0-100.0); MEAN CORPUSCULAR HEMOGLOBIN 29.1 PG (27.0-34.0); MEAN CORPUSCULAR HGB CONC 32.4 % (32.0-36.0); MONO % 6.3 % (0.0-8.0); NEUT % 89.1 % (16.0-70.0); PLATELET COUNT 425 TH/MM3 (150-450); RED BLOOD COUNT 4.44 MIL/MM3 (4.50-5.90); RED CELL DISTRIBUTION WIDTH 14.7 % (11.6-17.2); WHITE BLOOD COUNT 17.8 TH/MM3 (4.0-11.0)
[2017-07-22 08:28] LABS: ALKALINE PHOSPHATASE 92 U/L (45-117); ALT (GPT) 15 U/L (12-78); ANION GAP 11 MEQ/L (5-15); AST (GOT) 13 U/L (15-37); BICARBONATE 23.9 MEQ/L (21.0-32.0); BLOOD UREA NITROGEN 36 MG/DL (7-18); CHLORIDE 106 MEQ/L (98-107); GLOMERULAR FILTRATION RATE 76 ML/MIN (>89); POTASSIUM 3.7 MEQ/L (3.5-5.1); SODIUM (NA) 141 MEQ/L (136-145); TOTAL BILIRUBIN ADULT 0.4 MG/DL (0.2-1.0)
[2017-07-22 08:42] LABS: BACTERIA, URINE FEW /hpf; BLOOD, URINE SMALL (NEG); COMMENT (UR) CULTURE INDICATED; CULTURE IF INDICATED CULTURE INDICATED; GLUCOSE,URINE 1000 mg/dL (NEG); KETONE, URINE 10 mg/dL (NEG); NITRITE,URINE POS (NEG); PH, URINE 5.5 (5.0-8.5); SQUAMOUS EPITHELIAL CELL URINE <1 /hpf (0-5); URINE COLOR LIGHT-YELLOW (YELLW/STRAW)
--- NOTE | 2017-07-22 08:50 | RADRPT ---
EXAM DATE/TIME: 07/22/2017 08:12 [place] COMPARISON: CHEST SINGLE AP, March 24, 2017, 21:46. INDICATIONS : Short of breath. MEDICAL HISTORY : Hypertension. Hernia, hiatal. Benign prostatic hyperplasia, (BPH SURGICAL HISTORY : Tonsillectomy. ENCOUNTER: Initial ACUITY: 1 day PAIN SCORE: 0/10 LOCATION: Bilateral chest FINDINGS: Mild bibasilar patchiness is noted consistent with atelectasis and/or infiltrate. The heart is stabl e. Degenerative changes and scoliosis of the thoracic spine are noted. Bullous emphysema is noted w ithin the right apex. CONCLUSION: 1. Mild bibasilar atelectasis and/or infiltrates. Clinical correlation is recommended. 2. Degenerative changes and scoliosis of the thoracic spine. 3. Right apical bullous emphysema. Salbador Batres MD on July 22, 2017 at 8:27 Board Certified Radiologist. This report was verified electronically.
[2017-07-22] MEDS ORDERED: AZITHROMYCIN 250 MG TAB PO ONE (09:00)
[2017-07-22] MEDS ORDERED: cefTRIAXone INJ 1,000 MG in SODIUM CHLORIDE 0.9% INJ 100 ML IV ONE (09:00)
[2017-07-22] MEDS ORDERED: SENNOSIDES 8.6 MG TAB PO PRN (09:30)
[2017-07-22] MEDS ORDERED: DEXTROSE 50% IN WATER 50 ML VIAL(D50) IV PUSH PRN (09:30)
[2017-07-22] MEDS ORDERED: NALOXONE HCL 0.4 MG/ML AMP IV PRN (09:30)
[2017-07-22] MEDS ORDERED: SODIUM CHLORIDE 0.9% FLUSH 10 ML FLUSH IV FLUSH PRN (09:30)
[2017-07-22] MEDS ORDERED: MAGNESIUM HYDROXIDE SUSP 30 ML CUP PO PRN (09:30)
[2017-07-22] MEDS ORDERED: GLUCAGON 1 MG/ML VIAL OTHER PRN (09:30)
[2017-07-22] MEDS ORDERED: cloNIDine HCL 0.1 MG TAB PO PRN (09:30)
[2017-07-22] MEDS ORDERED: BISACODYL 10 MG SUPP RECTAL PRN (09:30)
[2017-07-22] MEDS ORDERED: RESP: ALBUTEROL 2.5 MG/IPRATROPIUM 0.5 MG NEB (PRN) NEB (09:30)
[2017-07-22] MEDS ORDERED: PILL SPLITTER OTHER PRN (09:45)
[2017-07-22] MEDS: SODIUM CHLOR 0.9% 1000 ML INJ 1,000 ML IV SCH (10:04)
[2017-07-22] MEDS: HEPARIN SODIUM - SQ 10,000 UNITS/ML VIAL SQ SCH ×2 (10:04→18:06)
[2017-07-22] MEDS: INSULIN NovoLIN REGULAR SUPPLEMENTAL SCALE SQ SCH ×3 (11:14→21:00)
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
[2017-07-22] MEDS: RESP: ALBUTEROL 2.5 MG/IPRATROPIUM 0.5 MG NEB (SCH) NEB ×3 (12:02→19:45)
[2017-07-22] MEDS: ASPIRIN 81 MG CHEW TAB CHEW SCH (20:51)
[2017-07-22] MEDS: METOPROLOL SUCCINATE 50 MG EXTENDED RELEASE TAB PO SCH (20:52)
[2017-07-22] MEDS: HYDROCORTISONE 10 MG TAB PO SCH (20:52)
[2017-07-22] MEDS: DOCUSATE SODIUM 50 MG/SENNA 8.6 MG TAB PO SCH (20:52)
[2017-07-22] MEDS: LISINOPRIL 10 MG TAB PO SCH (20:52)
[2017-07-22] MEDS: SODIUM CHLORIDE 0.9% FLUSH 10 ML FLUSH IV FLUSH SCH (20:53)
[2017-07-23] VITALS (9 sets, daily range): BP systolic 129–162; BP diastolic 66–86; PULSE 88–118; RESP 13–20; TEMP 96–98.4; O2SAT 90–98
[2017-07-23] MEDS: HEPARIN SODIUM - SQ 10,000 UNITS/ML VIAL SQ SCH ×3 (03:05→18:39)
[2017-07-23] MEDS: SODIUM CHLOR 0.9% 1000 ML INJ 1,000 ML IV SCH ×2 (03:05→14:05)
[2017-07-23] MEDS: INSULIN NovoLIN REGULAR SUPPLEMENTAL SCALE SQ SCH ×4 (08:00→21:00)
[2017-07-23 08:12] LABS: AUTOMATED NEUTROPHIL # 15.4 TH/MM3 (1.8-7.7); BASOPHIL # 0.1 TH/MM3 (0-0.2); BASOPHIL % 0.3 % (0.0-2.0); EOSINOPHIL # 0.1 TH/MM3 (0-0.4); EOSINOPHIL % 0.5 % (0.0-4.0); HEMATOCRIT 39.4 % (39.0-51.0); HEMO FLAGS DIFF FINAL; LYMPH % 7.2 % (9.0-44.0); LYMPHOCYTE # 1.3 TH/MM3 (1.0-4.8); MEAN CELL VOLUME 87.4 FL (80.0-100.0); MEAN CORPUSCULAR HEMOGLOBIN 28.6 PG (27.0-34.0); MEAN CORPUSCULAR HGB CONC 32.8 % (32.0-36.0); MONO % 6.1 % (0.0-8.0); NEUT % 85.9 % (16.0-70.0); PLATELET COUNT 408 TH/MM3 (150-450); RED BLOOD COUNT 4.51 MIL/MM3 (4.50-5.90); RED CELL DISTRIBUTION WIDTH 14.7 % (11.6-17.2); WHITE BLOOD COUNT 17.9 TH/MM3 (4.0-11.0)
[2017-07-23 08:35] LABS: BICARBONATE 25.4 MEQ/L (21.0-32.0); POTASSIUM 3.1 MEQ/L (3.5-5.1)
[2017-07-23] MEDS: RESP: ALBUTEROL 2.5 MG/IPRATROPIUM 0.5 MG NEB (SCH) NEB ×4 (08:36→21:38)
[2017-07-23] MEDS: DOCUSATE SODIUM 50 MG/SENNA 8.6 MG TAB PO SCH ×2 (09:00→21:00)
[2017-07-23] MEDS: SODIUM CHLORIDE 0.9% FLUSH 10 ML FLUSH IV FLUSH SCH ×2 (09:00→21:00)
[2017-07-23] MEDS: cefTRIAXone INJ 1,000 MG in SODIUM CHLORIDE 0.9% INJ 100 ML IV SCH (10:35)
[2017-07-23] MEDS: HYDROCORTISONE 10 MG TAB PO SCH ×2 (10:35→21:24)
[2017-07-23] MEDS: ASPIRIN 81 MG CHEW TAB CHEW SCH ×2 (10:36→21:24)
[2017-07-23] MEDS: METOPROLOL SUCCINATE 50 MG EXTENDED RELEASE TAB PO SCH ×2 (10:36→21:24)
[2017-07-23] MEDS: AZITHROMYCIN INJ 500 MG in SODIUM CHLOR 0.9% 250 ML INJ 250 ML IV SCH (10:36)
[2017-07-23] MEDS: glyBURIDE 5 MG TAB PO SCH (10:36)
[2017-07-23] MEDS ORDERED: POTASSIUM CHLORIDE 20 MEQ CONTROLLED RELEASE TAB PO ONE (13:00)
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
[2017-07-23] MEDS ORDERED: Vancomycin Consult Pharmacy 1 EA OTHER SCH (17:15)
[2017-07-23] MEDS: VANCOMYCIN INJ 1,250 MG in SODIUM CHLOR 0.9% 250 ML INJ 250 ML IV SCH (18:00)
[2017-07-23] MEDS: LISINOPRIL 10 MG TAB PO SCH (21:24)
--- NOTE | 2017-07-23 22:07 | EKG ---
Date Performed: 07/22/2017 Time Performed: 07:15:05 PTAGE: 89 years EKG: SINUS TACHYCARDIA WITH OCCASIONAL SUPRAVENTRICULAR PREMATURE COMPLEXES LEFT AXIS ABNORMAL R WAVE PROGRESSION INTRAVENTRICULAR CONDUCTION DELAY ABNORMAL ECG PREVIOUS TRACING : 03/24/2017 21.46 Compared to prior tracing no significant change DOCTOR: Tiffanie Leal Interpretating Date/Time 07/23/2017 22:06:21
[2017-07-24] VITALS (7 sets, daily range): BP systolic 136–174; BP diastolic 68–89; PULSE 85–103; RESP 17–19; TEMP 96–97.3; O2SAT 91–94
[2017-07-24] MEDS: HEPARIN SODIUM - SQ 10,000 UNITS/ML VIAL SQ SCH ×3 (03:27→17:04)
[2017-07-24] MEDS: INSULIN NovoLIN REGULAR SUPPLEMENTAL SCALE SQ SCH ×4 (08:00→21:53)
[2017-07-24] MEDS: RESP: ALBUTEROL 2.5 MG/IPRATROPIUM 0.5 MG NEB (SCH) NEB ×4 (08:05→21:06)
[2017-07-24] MEDS: cefTRIAXone INJ 1,000 MG in SODIUM CHLORIDE 0.9% INJ 100 ML IV SCH (08:44)
[2017-07-24] MEDS: HYDROCORTISONE 10 MG TAB PO SCH ×2 (08:46→21:34)
[2017-07-24] MEDS: DOCUSATE SODIUM 50 MG/SENNA 8.6 MG TAB PO SCH ×2 (08:48→21:35)
[2017-07-24] MEDS: ASPIRIN 81 MG CHEW TAB CHEW SCH ×2 (08:48→21:34)
[2017-07-24] MEDS: METOPROLOL SUCCINATE 50 MG EXTENDED RELEASE TAB PO SCH ×2 (08:48→21:34)
[2017-07-24] MEDS: glyBURIDE 5 MG TAB PO SCH (08:48)
[2017-07-24] MEDS: SODIUM CHLORIDE 0.9% FLUSH 10 ML FLUSH IV FLUSH SCH ×2 (08:48→21:00)
[2017-07-24 09:41] LABS: AUTOMATED NEUTROPHIL # 11.9 TH/MM3 (1.8-7.7); BASOPHIL % 0.3 % (0.0-2.0); EOSINOPHIL # 0.3 TH/MM3 (0-0.4); HEMATOCRIT 42.3 % (39.0-51.0); HEMO FLAGS DIFF FINAL; LYMPHOCYTE # 2.3 TH/MM3 (1.0-4.8); MEAN CELL VOLUME 87.9 FL (80.0-100.0); MEAN CORPUSCULAR HEMOGLOBIN 28.4 PG (27.0-34.0); MEAN CORPUSCULAR HGB CONC 32.4 % (32.0-36.0); MONO % 6.3 % (0.0-8.0); NEUT % 76.4 % (16.0-70.0); PLATELET COUNT 405 TH/MM3 (150-450); RED BLOOD COUNT 4.82 MIL/MM3 (4.50-5.90); RED CELL DISTRIBUTION WIDTH 14.6 % (11.6-17.2); WHITE BLOOD COUNT 15.6 TH/MM3 (4.0-11.0)
[2017-07-24 09:49] LABS: BICARBONATE 25.8 MEQ/L (21.0-32.0); POTASSIUM 3.3 MEQ/L (3.5-5.1)
[2017-07-24] MEDS: AZITHROMYCIN INJ 500 MG in SODIUM CHLOR 0.9% 250 ML INJ 250 ML IV SCH (10:19)
[2017-07-24] MEDS: VANCOMYCIN INJ 1,250 MG in SODIUM CHLOR 0.9% 250 ML INJ 250 ML IV SCH (17:10)
[2017-07-24] MEDS ORDERED: POTASSIUM CHLORIDE 20 MEQ CONTROLLED RELEASE TAB PO ONE (18:15)
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
[2017-07-24] MEDS: SODIUM CHLOR 0.9% 1000 ML INJ 1,000 ML IV SCH (18:41)
[2017-07-24] MEDS: LISINOPRIL 10 MG TAB PO SCH (21:34)
[2017-07-25] VITALS (8 sets, daily range): BP systolic 139–185; BP diastolic 54–90; PULSE 96–141; RESP 17–21; TEMP 95.5–98.4; O2SAT 91–96
[2017-07-25] MEDS: HEPARIN SODIUM - SQ 10,000 UNITS/ML VIAL SQ SCH ×3 (04:00→17:28)
[2017-07-25 04:26] LABS: AUTOMATED NEUTROPHIL # 11.6 TH/MM3 (1.8-7.7); BASOPHIL % 0.1 % (0.0-2.0); EOSINOPHIL # 0.3 TH/MM3 (0-0.4); EOSINOPHIL % 2.1 % (0.0-4.0); HEMATOCRIT 38.6 % (39.0-51.0); HEMO FLAGS DIFF FINAL; LYMPH % 9.7 % (9.0-44.0); LYMPHOCYTE # 1.4 TH/MM3 (1.0-4.8); MEAN CELL VOLUME 88.4 FL (80.0-100.0); MEAN CORPUSCULAR HEMOGLOBIN 28.9 PG (27.0-34.0); MEAN CORPUSCULAR HGB CONC 32.7 % (32.0-36.0); MONO % 6.2 % (0.0-8.0); NEUT % 81.9 % (16.0-70.0); PLATELET COUNT 381 TH/MM3 (150-450); RED BLOOD COUNT 4.37 MIL/MM3 (4.50-5.90); RED CELL DISTRIBUTION WIDTH 14.7 % (11.6-17.2); WHITE BLOOD COUNT 14.2 TH/MM3 (4.0-11.0)
[2017-07-25] MEDS ORDERED: PHARMACY ORDERED LAB ONE (05:45)
[2017-07-25] MEDS: VANCOMYCIN INJ 1,250 MG in SODIUM CHLOR 0.9% 250 ML INJ 250 ML IV SCH (07:21)
[2017-07-25] MEDS: INSULIN NovoLIN REGULAR SUPPLEMENTAL SCALE SQ SCH ×5 (08:00→21:04)
[2017-07-25] MEDS: RESP: ALBUTEROL 2.5 MG/IPRATROPIUM 0.5 MG NEB (SCH) NEB ×4 (08:06→20:00)
[2017-07-25] MEDS: SODIUM CHLORIDE 0.9% FLUSH 10 ML FLUSH IV FLUSH SCH ×2 (09:00→20:54)
[2017-07-25] MEDS: cefTRIAXone INJ 1,000 MG in SODIUM CHLORIDE 0.9% INJ 100 ML IV SCH (10:39)
[2017-07-25] MEDS: METOPROLOL SUCCINATE 50 MG EXTENDED RELEASE TAB PO SCH ×2 (10:40→20:53)
[2017-07-25] MEDS: ASPIRIN 81 MG CHEW TAB CHEW SCH ×2 (10:40→20:54)
[2017-07-25] MEDS: HYDROCORTISONE 10 MG TAB PO SCH ×2 (10:40→20:53)
[2017-07-25] MEDS: glyBURIDE 5 MG TAB PO SCH (10:40)
[2017-07-25] MEDS: DOCUSATE SODIUM 50 MG/SENNA 8.6 MG TAB PO SCH ×2 (10:41→20:54)
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
--- NOTE | 2017-07-25 15:44 | ECHRPT ---
Indication: +BCX CONCLUSIONS The left ventricular systolic function is hfgwqlhn-eb-qtdtmbd reduced with an estimated ejection fra ction in the range of 35-40%. Trace mitral valve regurgitation. Bqhy-mh-nymmrkrl aortic valve regurgitation. There is trace tricuspid valve regurgitation. BP: 143 / 77 HR: 96 Rhythm: MEASUREMENTS (Male / Female) Normal Values Technical Quality:Good 2D ECHO LV Diastolic Diameter PLAX 4.9 cm 4.2 - 5.9 / 3.9 - 5.3 cm LV Systolic Diameter PLAX 4.2 cm IVS Diastolic Thickness 1.1 cm 0.6 - 1.0 / 0.6 - 0.9 cm LVPW Diastolic Thickness 0.8 cm 0.6 - 1.0 / 0.6 - 0.9 cm LV Relative Wall Thickness 0.4 RV Internal Dim ED PLAX 2.5 cm LA Systolic Diameter LX 3.6 cm 3.0 - 4.0 / 2.7 - 3.8 cm M-MODE Aortic Root Diameter MM 3.0 cm AV Cusp Separation MM 2.0 cm DOPPLER AI Peak Velocity 381.0 cm/s AI Peak Gradient 58.1 mmHg AI Pressure Half Time 424.0 ms Mitral E Point Velocity 110.0 cm/s TR Peak Velocity 288.0 cm/s TR Peak Gradient 33.2 mmHg FINDINGS LEFT VENTRICLE Normal left ventricular size. Wall thickness is normal. The left ventricular systolic function is dsqvkvfz-wh-uiqtstw reduced with an estimated ejection fra ction in the range of 35-40%. There is abnormal septal motion consistent with an intraventricular conduction delay. RIGHT VENTRICLE Normal right ventricular size and systolic function. LEFT ATRIUM The left atrial size is upper limits of normal. RIGHT ATRIUM The right atrial size is normal. ATRIAL SEPTUM Normal atrial septal thickness without atrial level shunting by limited color doppler interrogation. AORTA The aortic root and proximal ascending aorta are normal in size on limited imaging. MITRAL VALVE Structurally normal mitral valve. Mild mitral annular calcification. Trace mitral valve regurgitation. No mitral valve stenosis. AORTIC VALVE Aortic valve sclerosis is present. Ljml-cu-wddtgnvx aortic valve regurgitation. No aortic valve stenosis. TRICUSPID VALVE Structurally normal tricuspid valve. There is trace tricuspid valve regurgitation. No tricuspid valve stenosis. The estimated pulmonary arterial pressure is 33 mmHg. PULMONARY VALVE The pulmonary valve is not well visualized. VESSELS The inferior vena cava is normal in size. PERICARDIUM No pericardial effusion. Mykel Simeon DO (Electronically Signed) Final Date:25 July 2017 15:43
--- NOTE | 2017-07-25 16:25 | RADRPT ---
EXAM DATE/TIME: 07/25/2017 14:17 [facility] COMPARISON: No previous studies available for comparison. INDICATIONS : Obstruction. MEDICAL HISTORY : Hypertension. Anticogulant therapy. Ulcer. H.Pylori. Hiatal hernia. BPH. Diabetes. SURGICAL HISTORY : Tonsillectomy. Cataract surgery. Stomach surgery. ENCOUNTER: Initial ACUITY: 1 day PAIN SCORE: 0/10 LOCATION: Bilateral flank MEASUREMENTS: RIGHT KIDNEY: 12.0 x 6.4 x 5.3 cm LEFT KIDNEY: 12.4 x 6.8 x 5.5 cm FINDINGS: RIGHT KIDNEY: There is hydronephrosis with dilated ureter extending down to the bladder. LEFT KIDNEY: Hydronephrosis with dilated ureter extending down to the bladder. 6.7 cm complex mass left kidney. BLADDER: Debris or mass in the bladder. CONCLUSION: Abnormal renal ultrasound. Scan with contrast is suggested if the patient can tolerate such. Shivam Marc MD FACR on July 25, 2017 at 16:22 Board Certified Radiologist. This report was verified electronically.
[2017-07-25] MEDS: INSULIN ASPART 1,000 UNITS/10 ML VIAL SQ SCH ×2 (17:00→17:48)
[2017-07-25 17:45] LABS: HEMOGLOBIN A1a 1.9 %; HEMOGLOBIN A1b 1.2 %; HEMOGLOBIN Ao 73.9 %; HEMOGLOBIN F 2.1 %; HEMOGLOBIN LA1C 3.1 %; HEMOGLOBIN P3 5.8 %
[2017-07-25] MEDS: LISINOPRIL 10 MG TAB PO SCH (20:54)
[2017-07-25] MEDS ORDERED: INSULIN DETEMIR 100 UNITS/ML VIAL SQ SCH (21:00)
[2017-07-25] MEDS: SODIUM CHLOR 0.9% 1000 ML INJ 1,000 ML IV SCH (21:04)
[2017-07-26] VITALS (8 sets, daily range): BP systolic 149–169; BP diastolic 74–98; PULSE 74–116; RESP 17–21; TEMP 95.8–97.6; O2SAT 91–97
[2017-07-26] MEDS ORDERED: LORazepam 2 MG/ML VIAL IV PUSH ONE
[2017-07-26] MEDS ORDERED: RESP: IPRATROPIUM 0.5 MG/2.5 ML NEB NEB ONE
[2017-07-26] MEDS: HEPARIN SODIUM - SQ 10,000 UNITS/ML VIAL SQ SCH ×3 (00:49→17:36)
[2017-07-26] MEDS ORDERED: METOPROLOL TARTRATE 25 MG TAB PO ONE (02:00)
--- NOTE | 2017-07-26 02:30 | RADRPT ---
EXAM DATE/TIME: 07/26/2017 01:54 [facility] COMPARISON: CHEST SINGLE AP, July 22, 2017, 8:12. INDICATIONS : Dyspnea. MEDICAL HISTORY : Hypertension. Hernia, hiatal. Benign prostatic hyperplasia, (BPH SURGICAL HISTORY : Tonsillectomy. ENCOUNTER: Subsequent ACUITY: 4 - 6 days PAIN SCORE: Non-responsive. LOCATION: Bilateral chest FINDINGS: A single view of the chest demonstrates biapical emphysematous changes, particularly on the right wit h bullous emphysema. Developing interstitial prominence suggesting some degree of vascular congestion or volume overload. Bibasilar atelectatic changes, left greater than right. Cannot exclude a small a ssociated left-sided effusion. Heart size is normal. Degenerative spurring of the dorsal spine. CONCLUSION: 1. Developing interstitial prominence suggesting some degree of vascular congestion or volume overloa d. 2. Stable biapical emphysematous changes, right greater than left. Nash Armijo MD on July 26, 2017 at 2:27 Board Certified Radiologist. This report was verified electronically.
[2017-07-26 03:12] LABS: BACTERIA, URINE MANY /hpf; BLOOD, URINE SMALL (NEG); COMMENT (UR) CULTURE INDICATED; CULTURE IF INDICATED CULTURE INDICATED; GLUCOSE,URINE 1000 mg/dL (NEG); KETONE, URINE 10 mg/dL (NEG); NITRITE,URINE NEG (NEG); PH, URINE 6.5 (5.0-8.5); URINE COLOR LIGHT-YELLOW (YELLW/STRAW)
[2017-07-26] MEDS ORDERED: FUROSEMIDE 20 MG/2 ML VIAL IV PUSH ONE (03:15)
[2017-07-26] MEDS ORDERED: PHARMACY ORDERED LAB ONE (05:45)
[2017-07-26] MEDS: INSULIN NovoLIN REGULAR SUPPLEMENTAL SCALE SQ SCH ×4 (08:00→20:18)
[2017-07-26] MEDS: RESP: ALBUTEROL 2.5 MG/IPRATROPIUM 0.5 MG NEB (SCH) NEB (08:00)
[2017-07-26] MEDS: INSULIN ASPART 1,000 UNITS/10 ML VIAL SQ SCH ×3 (08:00→17:00)
[2017-07-26] MEDS: ASPIRIN 81 MG CHEW TAB CHEW SCH ×2 (09:00→20:16)
[2017-07-26] MEDS: DOCUSATE SODIUM 50 MG/SENNA 8.6 MG TAB PO SCH ×2 (09:00→20:15)
--- NOTE | 2017-07-26 10:22 | HHI.PR ---
Subjective Remarks resting in no acute distress. noted that he's on restraints, afebrile. d/w the RN. Objective Vitals Vital Signs Date Time Temp Pulse Resp B/P (MAP) Pulse Ox O2 Delivery O2 Flow Rate FiO2 07/26/17 09:11 95 Nasal Cannula 3.00 07/26/17 08:00 96.9 99 18 152/79 (103) 93 07/26/17 00:00 97.6 116 19 169/98 (121) 91 07/25/17 22:35 96.3 141 21 145/89 (107) 91 07/25/17 20:00 97.6 115 18 185/54 (97) 93 07/25/17 16:00 95.5 102 17 163/77 (105) 92 07/25/17 12:00 97.3 99 17 168/79 (108) 92 I/O 07/25/17 07/25/17 07/25/17 07/26/17 07/26/17 07/26/17 07:00 15:00 23:00 07:00 15:00 23:00 Intake Total 1617 ml 700 ml 730 ml Output Total 800 ml Balance 1617 ml 700 ml -70 ml Intake Oral 240 ml 700 ml 240 ml IV Total 1377 ml 490 ml Output Urine Total 800 ml Bladder Scan Volume Amount 0 ml 500 ml # Voids 3 3 2 # Bowel Movements 0 0 Result Diagram: 07/25/17 0405 07/24/17 0856 Imaging Last Impressions Chest X-Ray 07/26/17 0000 Signed Impressions: Service Date/Time: Wednesday, July 26, 2017 01:54 - CONCLUSION: 1. Developing interstitial prominence suggesting some degree of vascular congestion or volume overload. 2. Stable biapical emphysematous changes, right greater than left. Nash Armijo MD Renal Ultrasound 07/25/17 0000 Signed Impressions: Service Date/Time: Tuesday, July 25, 2017 14:17 - CONCLUSION: Abnormal renal ultrasound. Scan with contrast is suggested if the patient can tolerate such. Shivam Marc MD FACR Objective Remarks GENERAL: This is a well-nourished, well-developed patient, in no apparent distress. CARDIOVASCULAR: Regular rate and regular rhythm without murmurs, gallops, or rubs. RESPIRATORY: Clear to auscultation. Breath sounds equal bilaterally. No wheezes , rales, or rhonchi. GASTROINTESTINAL: Abdomen soft, non-tender, nondistended. Normal, active bowel sounds MUSCULOSKELETAL: Extremities without clubbing, cyanosis, or edema. NEURO: awake but confused. Medications and IVs Current Medications Sodium Chloride 1,000 ml @ 999 mls/hr BOLUS ONCE IV Last administered on 07/22 07:45; Start 07/22/17 at 07:30; Stop 07/22/17 at 08:30; Status DC Sodium Chloride 1,000 ml @ 999 mls/hr BOLUS ONCE IV Last administered on 07/22 07:45; Start 07/22/17 at 07:30; Stop 07/22/17 at 08:30; Status DC Insulin Human Regular (NovoLIN R INJ) 7 units ONCE ONCE IV PUSH Last administered on 07/22/17 07:46; Start 07/22/17 at 07:30; Stop 07/22/17 at 07:31 ; Status DC Ceftriaxone Sodium 1000 mg/ Sodium Chloride 100 ml @ 200 mls/hr ONCE ONCE IV Last administered on 07/22/17 09:21; Start 07/22/17 at 09:00; Stop 07/22/17 at 09:29; Status DC Azithromycin (Zithromax) 500 mg ONCE ONCE PO Last administered on 07/22/17 09 :21; Start 07/22/17 at 09:00; Stop 07/22/17 at 09:01; Status DC Aspirin (Aspirin Chew) 81 mg BID CHEW Last administered on 07/25/17 20:54; Start 07/22/17 at 21:00 Clonidine (Catapres) 0.1 mg DAILY PRN PO INCREASE IN BLOOD PRESSURE; Start 10/26 at 09:30 Glyburide (Diabeta) 5 mg DAILY PO Last administered on 07/25/17 10:40; Start 07/23/17 at 09:00 Hydrocortisone (Cortef) 5 mg BID PO Last administered on 07/25/17 20:53; Start 07/22/17 at 21:00 Lisinopril (Prinivil) 10 mg HS PO Last administered on 07/25/17 20:54; Start 07/22/17 at 21:00 Metoprolol Succinate (Toprol Xl) 50 mg BID PO Last administered on 07/25/17 20 :53; Start 07/22/17 at 21:00 Dextrose (D50w (Vial) Inj) 25 ml UNSCH PRN IV PUSH HYPOGLYCEMIA-SEE COMMENTS; Start 07/22/17 at 09:30 Glucagon (Glucagon Inj) 1 mg UNSCH PRN OTHER HYPOGLYCEMIA-SEE COMMENTS; Start 07/22/17 at 09:30 Insulin Human Regular (NovoLIN R SUPPLEMENTAL SCALE) 1 ACHS SLIDING SCALE SQ Last administered on 07/25/17 21:04; Start 07/22/17 at 11:00 Ceftriaxone Sodium 1000 mg/ Sodium Chloride 100 ml @ 200 mls/hr Q24H IV Last administered on 07/25/17 10:39; Start 07/23/17 at 09:00 Azithromycin 500 mg/Sodium Chloride 250 ml @ 250 mls/hr Q24H IV Last administered on 07/24/17 10:19; Start 07/23/17 at 10:00; Stop 07/25/17 at 12:33 ; Status DC Albuterol/ Ipratropium (Duoneb Neb) 1 ampule QID NEB NEB Last administered on 07/26/17 08:00; Start 07/22/17 at 12:00 Albuterol/ Ipratropium (Duoneb Neb) 1 ampule Q2HR NEB PRN NEB short of breath; Start 07/22/17 at 09:30 Sodium Chloride 1,000 ml @ 70 mls/hr [id number] IV Last administered on 21:04; Start 07/22/17 at 09:29; Stop 07/26/17 at 03:17; Status DC Sodium Chloride (NS Flush) 2 ml UNSCH PRN IV FLUSH FLUSH AFTER USING IV ACCESS ; Start 07/22/17 at 09:30 Sodium Chloride (NS Flush) 2 ml BID IV FLUSH Last administered on 07/22/17 20: 53; Start 07/22/17 at 21:00 Heparin Sodium (Porcine) (Heparin Inj) 5,000 units Q8H SQ Last administered on 07/26/17 00:49; Start 07/22/17 at 10:00 Naloxone HCl (Narcan Inj) 0.4 mg UNSCH PRN IV SEE LABEL COMMENTS; Start at 09:30 Senna/Docusate Sodium (Janine-Colace) 1 tab BID PO Last administered on 20:54; Start 07/22/17 at 21:00 Magnesium Hydroxide (Milk Of Magnviviana Liq) 30 ml Q12H PRN PO MILD - MODERATE CONSTIPATION; Start 07/22/17 at 09:30 Sennosides (Senokot) 17.2 mg Q12H PRN PO MODERATE - SEVERE CONSTIPATION; Start 07/22/17 at 09:30 Bisacodyl (Dulcolax Supp) 10 mg DAILY PRN RECTAL SEVERE CONSITIPATION; Start at 09:30 Miscellaneous (Pill Splitter) 1 ea UNSCH PRN OTHER SEE LABEL COMMENTS; Start at 09:45 Potassium Chloride (KCl) 40 meq ONCE ONCE PO Last administered on 07/23/17 18 :38; Start 07/23/17 at 13:00; Stop 07/23/17 at 13:01; Status DC Pharmacy Profile Note 0 ml @ 0 mls/hr UNSCH OTHER ; Start 07/23/17 at 17:15; Stop 07/25/17 at 12:33; Status DC Vancomycin HCl 1250 mg/Sodium Chloride 262.5 ml @ 250 mls/hr Q12H IV Last administered on 07/25/17 07:21; Start 07/23/17 at 18:00; Stop 07/25/17 at 12:33 ; Status DC Miscellaneous Information SPECIFIC LAB TO BE DRAWN:VANCO TROUGH DATE TO BE ONCE ONCE .XX Last administered on 07/25/17 05:45; Start 07/25/17 at 05 :45; Stop 07/25/17 at 05:46; Status DC Potassium Chloride (KCl) 40 meq ONCE ONCE PO Last administered on 07/24/17 18 :30; Start 07/24/17 at 18:15; Stop 07/24/17 at 18:21; Status DC Miscellaneous Information SPECIFIC LAB TO BE .. ONCE ONCE .XX ; Start 07/26 at 05:45; Stop 07/26/17 at 05:46; Status DC Insulin Detemir (Levemir Inj) 5 units HS SQ Last administered on 07/25/17 21: 04; Start 07/25/17 at 21:00 Insulin Aspart (NovoLOG INJ) 2 units TIDAC SQ Last administered on 07/25/17 17 :48; Start 07/25/17 at 17:00 Lorazepam (Ativan Inj) 0.5 mg ONCE ONCE IV PUSH Last administered on 00:48; Start 07/26/17 at 00:00; Stop 07/26/17 at 00:01; Status DC Ipratropium Grady (Atrovent Neb) 0.5 mg ONCE ONCE NEB Last administered on 01:30; Start 07/26/17 at 00:00; Stop 07/26/17 at 00:01; Status DC Metoprolol Tartrate (Lopressor) 25 mg ONCE ONCE PO Last administered on 02:35; Start 07/26/17 at 02:00; Stop 07/26/17 at 02:01; Status DC Furosemide (Lasix Inj) 20 mg ONCE ONCE IV PUSH Last administered on 07/26/17 03:44; Start 07/26/17 at 03:15; Stop 07/26/17 at 03:27; Status DC A/P Assessment and Plan A/P Sepsis (tachycardia, leukocytosis with mild bandemia, lactic acid level) suspect secondary to UTI vs pneumonia Dehydration suspect secondary to above vs dysphagia - CXR reviewed showing mild bibasilar atelectasis and/or infiltrates. - Ensure hydration. - continue IV antibiotic per ID. -continue neb treatment. - diet per ST evaluation. bacteriuria/ UTI renal sonogram with bilateral hydronephrosis and left kidney mass continue IV antibiotic will consult urology ID following. Uncontrolled diabetes mellitus with hyperglycemia -increase insulin to 10 units subq qhs - Continue home Glyburide. - ACCU check Q4h, sliding scale insulin, cover as needed. Monitor closely. Hypertension, chronic: Continue home Lisinopril. Clonidine PRN available. Monitor BPs closely. CAD: Continue home aspirin. DVT prophylaxis: SCDs/Heparin. Shaniqua Jones MD Jul 26, 2017 10:22
[2017-07-26] MEDS: cefTRIAXone INJ 1,000 MG in SODIUM CHLORIDE 0.9% INJ 100 ML IV SCH (11:23)
[2017-07-26] MEDS: glyBURIDE 5 MG TAB PO SCH (11:26)
[2017-07-26] MEDS: SODIUM CHLORIDE 0.9% FLUSH 10 ML FLUSH IV FLUSH SCH ×2 (11:26→20:16)
[2017-07-26] MEDS: METOPROLOL SUCCINATE 50 MG EXTENDED RELEASE TAB PO SCH ×2 (11:26→20:16)
[2017-07-26] MEDS: HYDROCORTISONE 10 MG TAB PO SCH ×2 (11:28→20:16)
[2017-07-26] MEDS: LISINOPRIL 10 MG TAB PO SCH (20:15)
[2017-07-26] MEDS ORDERED: INSULIN DETEMIR 100 UNITS/ML VIAL SQ SCH (21:00)
[2017-07-26] MEDS ORDERED: IOHEXOL 350 MG/ML 10 ML VIAL (for RAD DIAG) IVCONTRAST ONE (21:34)
--- NOTE | 2017-07-26 21:53 | RADRPT ---
EXAM DATE/TIME: 07/26/2017 21:18 [place] COMPARISON: CT ABDOMEN & PELVIS W/O CONTRAST, March 29, 2011, 16:02. US KIDNEY/RENAL/BLADDER, July 25, 2017, 14:17. INDICATIONS : Renal mass on ultrasound. IV CONTRAST: 85 cc Omnipaque 350 (iohexol) IV ORAL CONTRAST: No oral contrast ingested. RADIATION DOSE: 9.96 CTDIvol (mGy) MEDICAL HISTORY : Hypertension. Benign prostatic hyperplasia (BPH). Diabetes mellitus type 2. SURGICAL HISTORY : perforated stomach ENCOUNTER: Subsequent ACUITY: 2 days PAIN SCALE: Non-responsive LOCATION: abdomen TECHNIQUE: Volumetric scanning of the abdomen and pelvis was performed. Using automated exposure control and ad justment of the mA and/or kV according to patient size, radiation dose was kept as low as reasonably achievable to obtain optimal diagnostic quality images. DICOM format image data is available electro nically for review and comparison. FINDINGS: Massively enlarged prostate again noted, measures approximately 9.7 x 9.7 x 7.7 cm. There is bladder wall thickening and probable trabeculation. There is moderate to severe bilateral hydronephrosis and hydroureter, worse than on the CT back in 2010. The hydronephrosis is presumably related to chronic b ladder outlet obstruction and/or reflux. 5 x 6.7 cm left upper pole cyst with a thin calcified septation noted, stable. There is a fairly simp le and also not significantly changed cyst of the left lower pole that measures approximately 2.1 cm. I don't clearly see a solid renal mass on either side. Noncontrast appearance of the liver, spleen, pancreas and adrenal glands within normal limits. No obs truction or acute inflammatory changes are seen at the gastrointestinal tract. A broad umbilical bobby ia containing nondistended transverse colon again noted. The hernia defect measures approximately 9 c m across. Atherosclerosis and tortuosity again seen of the abdominal aorta. No aneurysm. Numerous small stones are seen dependently within the gallbladder. No inflammatory changes. No duct s tone or ductal dilatation. Large amount of stool seen in the rectum. CONCLUSION: 1. There are cysts of the left kidney. The left upper pole cyst is slightly complex but stable back t o 2010. No evidence of a solid/concerning renal lesion. 2. Markedly enlarged prostate with wall thickening and probable trabeculation of the urinary bladder and also probable chronic reflux and/or obstruction of both ureters. There is moderate to severe bila teral hydronephrosis/hydroureter, worse since 2010. No stones are demonstrated. 3. Cholelithiasis without evidence of cholecystitis or biliary obstruction. 4. Large stool in the rectum. 5. Large umbilical hernia containing large bowel. No obstruction or evidence of incarceration. 6. Small effusions and mild atelectasis seen of the visualized lung bases. Chin Noland MD on July 26, 2017 at 21:43 Board Certified Radiologist. This report was verified electronically.
[2017-07-27] VITALS (8 sets, daily range): BP systolic 131–158; BP diastolic 66–85; PULSE 76–115; RESP 16–20; TEMP 96–97.2; O2SAT 93–97
[2017-07-27] MEDS: HEPARIN SODIUM - SQ 10,000 UNITS/ML VIAL SQ SCH ×3 (01:51→18:00)
[2017-07-27 07:31] LABS: BASOPHIL # 0.1 TH/MM3 (0-0.2); BASOPHIL % 0.3 % (0.0-2.0); EOSINOPHIL # 0.3 TH/MM3 (0-0.4); EOSINOPHIL % 1.3 % (0.0-4.0); HEMATOCRIT 41.7 % (39.0-51.0); HEMO FLAGS DIFF FINAL; LYMPH % 9.7 % (9.0-44.0); MEAN CELL VOLUME 88.7 FL (80.0-100.0); MEAN CORPUSCULAR HEMOGLOBIN 28.9 PG (27.0-34.0); MEAN CORPUSCULAR HGB CONC 32.6 % (32.0-36.0); MONO % 5.1 % (0.0-8.0); NEUT % 83.6 % (16.0-70.0); PLATELET COUNT 375 TH/MM3 (150-450); WHITE BLOOD COUNT 20.3 TH/MM3 (4.0-11.0)
[2017-07-27 07:44] LABS: BICARBONATE 24.9 MEQ/L (21.0-32.0); POTASSIUM 3.2 MEQ/L (3.5-5.1)
[2017-07-27] MEDS: INSULIN NovoLIN REGULAR SUPPLEMENTAL SCALE SQ SCH ×4 (08:00→20:24)
[2017-07-27] MEDS: INSULIN ASPART 1,000 UNITS/10 ML VIAL SQ SCH ×3 (08:00→17:00)
--- NOTE | 2017-07-27 09:34 | HHI.PR ---
Subjective Remarks in no acute distress. no fever. denies pain. Objective Vitals Vital Signs Date Time Temp Pulse Resp B/P (MAP) Pulse Ox O2 Delivery O2 Flow Rate FiO2 07/27/17 08:00 97.2 91 16 138/70 (92) 97 07/27/17 04:00 96.0 76 20 131/70 (90) 94 07/27/17 00:00 96.0 86 19 158/85 (109) 95 07/26/17 20:33 95.8 87 21 149/75 (99) 96 07/26/17 20:00 85 07/26/17 16:00 97.2 90 17 158/83 (108) 97 07/26/17 12:00 97.2 74 17 154/74 (100) 93 I/O 07/26/17 07/26/17 07/26/17 07/27/17 07/27/17 07/27/17 07:00 15:00 23:00 07:00 15:00 23:00 Intake Total 730 ml 100 ml 360 ml 240 ml Output Total 800 ml 6 ml 100 ml Balance -70 ml 100 ml 354 ml 140 ml Intake Oral 240 ml 360 ml 240 ml IV Total 490 ml 100 ml Output Urine Total 800 ml 6 ml 100 ml Bladder Scan Volume Amount 500 ml # Voids 2 3 # Bowel Movements 0 0 Result Diagram: 07/27/17 0700 07/27/17 0700 Imaging Last Impressions Chest X-Ray 07/26/17 0000 Signed Impressions: Service Date/Time: Wednesday, July 26, 2017 01:54 - CONCLUSION: 1. Developing interstitial prominence suggesting some degree of vascular congestion or volume overload. 2. Stable biapical emphysematous changes, right greater than left. Nash Armijo MD Abdomen/Pelvis CT 07/26/17 0000 Signed Impressions: Service Date/Time: Wednesday, July 26, 2017 21:18 - CONCLUSION: 1. There are cysts of the left kidney. The left upper pole cyst is slightly complex but stable back to 2010. No evidence of a solid/concerning renal lesion. 2. Markedly enlarged prostate with wall thickening and probable trabeculation of the urinary bladder and also probable chronic reflux and/or obstruction of both ureters. There is moderate to severe bilateral hydronephrosis/hydroureter, worse since 2010. No stones are demonstrated. 3. Cholelithiasis without evidence of cholecystitis or biliary obstruction. 4. Large stool in the rectum. 5. Large umbilical hernia containing large bowel. No obstruction or evidence of incarceration. 6. Small effusions and mild atelectasis seen of the visualized lung bases. Chin Noland MD Renal Ultrasound 07/25/17 0000 Signed Impressions: Service Date/Time: Tuesday, July 25, 2017 14:17 - CONCLUSION: Abnormal renal ultrasound. Scan with contrast is suggested if the patient can tolerate such. Shivam Marc MD FACR Objective Remarks GENERAL: This is a well-nourished, well-developed patient, in no apparent distress. CARDIOVASCULAR: Regular rate and regular rhythm without murmurs, gallops, or rubs. RESPIRATORY: Clear to auscultation. Breath sounds equal bilaterally. No wheezes , rales, or rhonchi. GASTROINTESTINAL: Abdomen soft, non-tender, nondistended. Normal, active bowel sounds MUSCULOSKELETAL: Extremities without clubbing, cyanosis, or edema. NEURO: awake but confused. Medications and IVs Current Medications Sodium Chloride 1,000 ml @ 999 mls/hr BOLUS ONCE IV Last administered on 07/22 07:45; Start 07/22/17 at 07:30; Stop 07/22/17 at 08:30; Status DC Sodium Chloride 1,000 ml @ 999 mls/hr BOLUS ONCE IV Last administered on 07/22 07:45; Start 07/22/17 at 07:30; Stop 07/22/17 at 08:30; Status DC Insulin Human Regular (NovoLIN R INJ) 7 units ONCE ONCE IV PUSH Last administered on 07/22/17 07:46; Start 07/22/17 at 07:30; Stop 07/22/17 at 07:31 ; Status DC Ceftriaxone Sodium 1000 mg/ Sodium Chloride 100 ml @ 200 mls/hr ONCE ONCE IV Last administered on 07/22/17 09:21; Start 07/22/17 at 09:00; Stop 07/22/17 at 09:29; Status DC Azithromycin (Zithromax) 500 mg ONCE ONCE PO Last administered on 07/22/17 09 :21; Start 07/22/17 at 09:00; Stop 07/22/17 at 09:01; Status DC Aspirin (Aspirin Chew) 81 mg BID CHEW Last administered on 07/26/17 20:16; Start 07/22/17 at 21:00 Clonidine (Catapres) 0.1 mg DAILY PRN PO INCREASE IN BLOOD PRESSURE; Start 10/26 at 09:30 Glyburide (Diabeta) 5 mg DAILY PO Last administered on 07/26/17 11:26; Start 07/23/17 at 09:00 Hydrocortisone (Cortef) 5 mg BID PO Last administered on 07/26/17 20:16; Start 07/22/17 at 21:00 Lisinopril (Prinivil) 10 mg HS PO Last administered on 07/26/17 20:15; Start 07/22/17 at 21:00 Metoprolol Succinate (Toprol Xl) 50 mg BID PO Last administered on 07/26/17 20 :16; Start 07/22/17 at 21:00 Dextrose (D50w (Vial) Inj) 25 ml UNSCH PRN IV PUSH HYPOGLYCEMIA-SEE COMMENTS; Start 07/22/17 at 09:30 Glucagon (Glucagon Inj) 1 mg UNSCH PRN OTHER HYPOGLYCEMIA-SEE COMMENTS; Start 07/22/17 at 09:30 Insulin Human Regular (NovoLIN R SUPPLEMENTAL SCALE) 1 ACHS SLIDING SCALE SQ Last administered on 07/26/17 20:18; Start 07/22/17 at 11:00 Ceftriaxone Sodium 1000 mg/ Sodium Chloride 100 ml @ 200 mls/hr Q24H IV Last administered on 07/26/17 11:23; Start 07/23/17 at 09:00 Azithromycin 500 mg/Sodium Chloride 250 ml @ 250 mls/hr Q24H IV Last administered on 07/24/17 10:19; Start 07/23/17 at 10:00; Stop 07/25/17 at 12:33 ; Status DC Albuterol/ Ipratropium (Duoneb Neb) 1 ampule QID NEB NEB Last administered on 07/26/17 08:00; Start 07/22/17 at 12:00; Stop 07/26/17 at 11:59; Status DC Albuterol/ Ipratropium (Duoneb Neb) 1 ampule Q2HR NEB PRN NEB short of breath; Start 07/22/17 at 09:30 Sodium Chloride 1,000 ml @ 70 mls/hr [id number] IV Last administered on 21:04; Start 07/22/17 at 09:29; Stop 07/26/17 at 03:17; Status DC Sodium Chloride (NS Flush) 2 ml UNSCH PRN IV FLUSH FLUSH AFTER USING IV ACCESS ; Start 07/22/17 at 09:30 Sodium Chloride (NS Flush) 2 ml BID IV FLUSH Last administered on 07/26/17 20: 16; Start 07/22/17 at 21:00 Heparin Sodium (Porcine) (Heparin Inj) 5,000 units Q8H SQ Last administered on 07/27/17 01:51; Start 07/22/17 at 10:00 Naloxone HCl (Narcan Inj) 0.4 mg UNSCH PRN IV SEE LABEL COMMENTS; Start at 09:30 Senna/Docusate Sodium (Janine-Colace) 1 tab BID PO Last administered on 20:15; Start 07/22/17 at 21:00 Magnesium Hydroxide (Milk Of Magnesia Liq) 30 ml Q12H PRN PO MILD - MODERATE CONSTIPATION; Start 07/22/17 at 09:30 Sennosides (Senokot) 17.2 mg Q12H PRN PO MODERATE - SEVERE CONSTIPATION; Start 07/22/17 at 09:30 Bisacodyl (Dulcolax Supp) 10 mg DAILY PRN RECTAL SEVERE CONSITIPATION; Start at 09:30 Miscellaneous (Pill Splitter) 1 ea UNSCH PRN OTHER SEE LABEL COMMENTS; Start at 09:45 Potassium Chloride (KCl) 40 meq ONCE ONCE PO Last administered on 07/23/17 18 :38; Start 07/23/17 at 13:00; Stop 07/23/17 at 13:01; Status DC Pharmacy Profile Note 0 ml @ 0 mls/hr UNSCH OTHER ; Start 07/23/17 at 17:15; Stop 07/25/17 at 12:33; Status DC Vancomycin HCl 1250 mg/Sodium Chloride 262.5 ml @ 250 mls/hr Q12H IV Last administered on 07/25/17 07:21; Start 07/23/17 at 18:00; Stop 07/25/17 at 12:33 ; Status DC Miscellaneous Information SPECIFIC LAB TO BE DRAWN:AMRIT TROUGH DATE TO BE ONCE ONCE .XX Last administered on 07/25/17 05:45; Start 07/25/17 at 05 :45; Stop 07/25/17 at 05:46; Status DC Potassium Chloride (KCl) 40 meq ONCE ONCE PO Last administered on 07/24/17 18 :30; Start 07/24/17 at 18:15; Stop 07/24/17 at 18:21; Status DC Miscellaneous Information SPECIFIC LAB TO BE .. ONCE ONCE .XX ; Start 07/26 at 05:45; Stop 07/26/17 at 05:46; Status DC Insulin Detemir (Levemir Inj) 5 units HS SQ Last administered on 07/25/17 21: 04; Start 07/25/17 at 21:00; Stop 07/26/17 at 10:24; Status DC Insulin Aspart (NovoLOG INJ) 2 units TIDAC SQ Last administered on 07/26/17 17 :00; Start 07/25/17 at 17:00 Lorazepam (Ativan Inj) 0.5 mg ONCE ONCE IV PUSH Last administered on 00:48; Start 07/26/17 at 00:00; Stop 07/26/17 at 00:01; Status DC Ipratropium [place] (Atrovent Neb) 0.5 mg ONCE ONCE NEB Last administered on 01:30; Start 07/26/17 at 00:00; Stop 07/26/17 at 00:01; Status DC Metoprolol Tartrate (Lopressor) 25 mg ONCE ONCE PO Last administered on 02:35; Start 07/26/17 at 02:00; Stop 07/26/17 at 02:01; Status DC Furosemide (Lasix Inj) 20 mg ONCE ONCE IV PUSH Last administered on 07/26/17 03:44; Start 07/26/17 at 03:15; Stop 07/26/17 at 03:27; Status DC Insulin Detemir (Levemir Inj) 10 units HS SQ Last administered on 07/26/17 20: 16; Start 07/26/17 at 21:00 Iohexol (Omnipaque 350 Inj) 85 ml STK-MED ONCE IVCONTRAST Last administered on 9/16/17at 21:34; Start 07/26/17 at 21:34; Stop 07/26/17 at 21:35; Status DC A/P Assessment and Plan A/P Sepsis (tachycardia, leukocytosis with mild bandemia, lactic acid level) suspect secondary to UTI vs pneumonia Dehydration suspect secondary to above vs dysphagia - continue IV antibiotic per ID. -continue neb treatment. - diet per ST evaluation. bacteriuria/ UTI/ with bilateral hydronephrosis continue IV antibiotic Urology consulted ID following. Uncontrolled diabetes mellitus with hyperglycemia -increase insulin to 15 units subq qhs - Continue home Glyburide. - ACCU check Q4h, sliding scale insulin, cover as needed. Monitor closely. Hypertension, chronic: Continue home Lisinopril. Clonidine PRN available. Monitor BPs closely. hypokalemia; will replace. CAD: Continue home aspirin. DVT prophylaxis: SCDs/Heparin. DNR status per my discussion with the daughter. Discharge Planning d/w the daughter; Ms.Barbara Veliz; [phone]- dc planning to SNF when stable. Shaniqua Jones MD Jul 27, 2017 09:34
[2017-07-27] MEDS ORDERED: POTASSIUM CHLORIDE 10 MEQ CONTROLLED RELEASE TAB PO ONE (09:45)
[2017-07-27] MEDS: HYDROCORTISONE 10 MG TAB PO SCH ×2 (11:48→20:21)
[2017-07-27] MEDS: glyBURIDE 5 MG TAB PO SCH (11:48)
[2017-07-27] MEDS: cefTRIAXone INJ 1,000 MG in SODIUM CHLORIDE 0.9% INJ 100 ML IV SCH (11:49)
[2017-07-27] MEDS: ASPIRIN 81 MG CHEW TAB CHEW SCH ×2 (11:50→20:21)
[2017-07-27] MEDS: SODIUM CHLORIDE 0.9% FLUSH 10 ML FLUSH IV FLUSH SCH ×2 (11:50→20:21)
[2017-07-27] MEDS: DOCUSATE SODIUM 50 MG/SENNA 8.6 MG TAB PO SCH ×2 (11:50→20:21)
[2017-07-27] MEDS: METOPROLOL SUCCINATE 50 MG EXTENDED RELEASE TAB PO SCH ×2 (11:51→20:21)
[2017-07-27] MEDS: TAMSULOSIN HCL 0.4 MG CAP PO SCH (13:30)
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
[2017-07-27] MEDS: LISINOPRIL 10 MG TAB PO SCH (20:21)
[2017-07-27] MEDS: INSULIN DETEMIR 100 UNITS/ML VIAL SQ SCH (20:23)
[2017-07-28] VITALS: BP 156/78; PULSE 94; RESP 18; TEMP 97.4; O2SAT 94
[2017-07-28] MEDS: HEPARIN SODIUM - SQ 10,000 UNITS/ML VIAL SQ SCH ×3 (02:00→18:07)
[2017-07-28 04:00] VITALS: BP 148/74; PULSE 96; RESP 18; TEMP 96.5; O2SAT 93
[2017-07-28 07:26] LABS: AUTOMATED NEUTROPHIL # 13.2 TH/MM3 (1.8-7.7); BASOPHIL # 0.2 TH/MM3 (0-0.2); BASOPHIL % 1.4 % (0.0-2.0); EOSINOPHIL # 0.2 TH/MM3 (0-0.4); EOSINOPHIL % 1.1 % (0.0-4.0); HEMATOCRIT 41.5 % (39.0-51.0); HEMO FLAGS DIFF FINAL; LYMPH % 11.1 % (9.0-44.0); LYMPHOCYTE # 1.8 TH/MM3 (1.0-4.8); MEAN CELL VOLUME 88.4 FL (80.0-100.0); MEAN CORPUSCULAR HGB CONC 32.8 % (32.0-36.0); MONO % 5.1 % (0.0-8.0); NEUT % 81.3 % (16.0-70.0); PLATELET COUNT 377 TH/MM3 (150-450); RED BLOOD COUNT 4.69 MIL/MM3 (4.50-5.90); RED CELL DISTRIBUTION WIDTH 14.9 % (11.6-17.2); WHITE BLOOD COUNT 16.3 TH/MM3 (4.0-11.0)
[2017-07-28 08:00] VITALS: BP 136/72; PULSE 72; RESP 20; TEMP 97; O2SAT 95
[2017-07-28] MEDS: INSULIN ASPART 1,000 UNITS/10 ML VIAL SQ SCH ×3 (08:00→18:07)
[2017-07-28] MEDS: INSULIN NovoLIN REGULAR SUPPLEMENTAL SCALE SQ SCH ×4 (08:00→23:05)
--- NOTE | 2017-07-28 08:28 | HHI.PR ---
Subjective Patient symptoms today Pt seen and examined. Resting comfortably. Long discussion over the telephone with his daughter, Lola. Discussed placement of SP tube which will occur later this week after infection has cleared. Objective Vital Signs Vital Signs Date Time Temp Pulse Resp B/P (MAP) Pulse Ox O2 Delivery O2 Flow Rate FiO2 07/28/17 04:00 96.5 96 18 148/74 (98) 93 07/28/17 00:00 97.4 94 18 156/78 (104) 94 07/27/17 20:00 96.2 97 18 141/79 (99) 94 07/27/17 19:52 102 07/27/17 16:00 96.6 88 16 144/66 (92) 95 07/27/17 12:00 96.9 115 18 132/74 (93) 93 07/27/17 09:15 89 Intake & Output 07/28/17 07/28/17 06:59 18:59 Intake Total 320 ml Balance 320 ml Intake Oral 320 ml # Voids 4 # Bowel Movements 0 Result Diagram: 07/28/17 0707/27/17 0700 Objective Remarks Abd: soft,nt,nd Medications and IVs Current Medications Medications (Trade) Dose Ordered Sig/Shanel Route Start Time Stop Time Status Last Admin (Aspirin Chew) 81 mg BID CHEW 07/22/17 21:00 Future Hold 07/27/17 20:21 (Catapres) 0.1 mg DAILY PRN PO 07/22/17 09:30 (Diabeta) 5 mg DAILY PO 07/23/17 09:00 07/27/17 11:48 (Cortef) 5 mg BID PO 07/22/17 21:00 07/27/17 20:21 (Prinivil) 10 mg HS PO 07/22/17 21:00 07/27/17 20:21 (Toprol Xl) 50 mg BID PO 07/22/17 21:00 07/27/17 20:21 (D50w (Vial) Inj) 25 ml UNSCH PRN IV PUSH 07/22/17 09:30 (Glucagon Inj) 1 mg UNSCH PRN OTHER 07/22/17 09:30 (NovoLIN R SUPPLEMENTAL SCALE) 1 ACHS SLIDING SCALE SQ 07/22/17 11:00 07/27/17 20:24 Ceftriaxone Sodium 1000 mg/ Sodium Chloride 100 ml @ 200 mls/hr Q24H IV 07/23/17 09:00 07/27/17 11:49 (Duoneb Neb) 1 ampule Q2HR NEB PRN NEB 07/22/17 09:30 (NS Flush) 2 ml UNSCH PRN IV FLUSH 07/22/17 09:30 (NS Flush) 2 ml BID IV FLUSH 07/22/17 21:00 07/27/17 20:21 (Heparin Inj) 5,000 units Q8H SQ 07/22/17 10:00 07/28/17 02:00 (Narcan Inj) 0.4 mg UNSCH PRN IV 07/22/17 09:30 (Janine-Colace) 1 tab BID PO 07/22/17 21:00 07/27/17 20:21 (Milk Of Magnesia Liq) 30 ml Q12H PRN PO 07/22/17 09:30 (Senokot) 17.2 mg Q12H PRN PO 07/22/17 09:30 (Dulcolax Supp) 10 mg DAILY PRN RECTAL 07/22/17 09:30 (Pill Splitter) 1 ea UNSCH PRN OTHER 07/22/17 09:45 (NovoLOG INJ) 2 units TIDAC SQ 07/25/17 17:00 07/27/17 17:00 (Levemir Inj) 15 units HS SQ 07/27/17 21:00 07/27/17 20:23 (Flomax) 0.4 mg DAILY PO 07/27/17 13:30 07/27/17 13:30 Assessment and Plan Assessment and Plan 89 y.o male with BPH with obstruction and MEDEL with UTI Recommend placement of SP tube later this week. Shaheen Armstrong DO Jul 28, 2017 08:28
[2017-07-28] MEDS: METOPROLOL SUCCINATE 50 MG EXTENDED RELEASE TAB PO SCH ×2 (09:28→23:04)
[2017-07-28] MEDS: TAMSULOSIN HCL 0.4 MG CAP PO SCH (09:28)
[2017-07-28] MEDS: DOCUSATE SODIUM 50 MG/SENNA 8.6 MG TAB PO SCH ×2 (09:28→21:00)
[2017-07-28] MEDS: glyBURIDE 5 MG TAB PO SCH (09:28)
[2017-07-28] MEDS: HYDROCORTISONE 10 MG TAB PO SCH ×2 (09:28→23:03)
[2017-07-28] MEDS: SODIUM CHLORIDE 0.9% FLUSH 10 ML FLUSH IV FLUSH SCH ×2 (09:29→23:11)
[2017-07-28] MEDS: cefTRIAXone INJ 1,000 MG in SODIUM CHLORIDE 0.9% INJ 100 ML IV SCH (09:29)
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
[2017-07-28 12:00] VITALS: BP 143/84; PULSE 92; RESP 18; TEMP 97.8; O2SAT 90
--- NOTE | 2017-07-28 12:11 | HHI.PR ---
Subjective Remarks in no acute distress. denies pain. no fever. Objective Vitals Vital Signs Date Time Temp Pulse Resp B/P (MAP) Pulse Ox O2 Delivery O2 Flow Rate FiO2 07/28/17 08:00 97.0 72 20 136/72 (93) 95 07/28/17 04:00 96.5 96 18 148/74 (98) 93 07/28/17 00:00 97.4 94 18 156/78 (104) 94 07/27/17 20:00 96.2 97 18 141/79 (99) 94 07/27/17 19:52 102 07/27/17 16:00 96.6 88 16 144/66 (92) 95 07/27/17 12:00 96.9 115 18 132/74 (93) 93 I/O 07/27/17 07/27/17 07/27/17 07/28/17 07/28/17 07/28/17 07:00 15:00 23:00 07:00 15:00 23:00 Intake Total 240 ml 720 ml 320 ml 120 ml Output Total 100 ml Balance 140 ml 720 ml 320 ml 120 ml Intake Oral 240 ml 720 ml 320 ml 120 ml Output Urine Total 100 ml Bladder Scan Volume Amount 263 ml # Voids 3 4 4 # Bowel Movements 0 2 0 Result Diagram: 07/28/17 0700 07/27/17 0700 Imaging Last Impressions Chest X-Ray 07/26/17 0000 Signed Impressions: Service Date/Time: Wednesday, July 26, 2017 01:54 - CONCLUSION: 1. Developing interstitial prominence suggesting some degree of vascular congestion or volume overload. 2. Stable biapical emphysematous changes, right greater than left. Nash Armijo MD Abdomen/Pelvis CT 07/26/17 0000 Signed Impressions: Service Date/Time: Wednesday, July 26, 2017 21:18 - CONCLUSION: 1. There are cysts of the left kidney. The left upper pole cyst is slightly complex but stable back to 2010. No evidence of a solid/concerning renal lesion. 2. Markedly enlarged prostate with wall thickening and probable trabeculation of the urinary bladder and also probable chronic reflux and/or obstruction of both ureters. There is moderate to severe bilateral hydronephrosis/hydroureter, worse since 2010. No stones are demonstrated. 3. Cholelithiasis without evidence of cholecystitis or biliary obstruction. 4. Large stool in the rectum. 5. Large umbilical hernia containing large bowel. No obstruction or evidence of incarceration. 6. Small effusions and mild atelectasis seen of the visualized lung bases. Chin Noland MD Renal Ultrasound 07/25/17 0000 Signed Impressions: Service Date/Time: Tuesday, July 25, 2017 14:17 - CONCLUSION: Abnormal renal ultrasound. Scan with contrast is suggested if the patient can tolerate such. Shivam Marc MD FACR Objective Remarks GENERAL: elderly male, in no apparent distress. CARDIOVASCULAR: Regular rate and regular rhythm without murmurs, gallops, or rubs. RESPIRATORY: Clear to auscultation. Breath sounds equal bilaterally. No wheezes , rales, or rhonchi. GASTROINTESTINAL: Abdomen soft, non-tender, nondistended. Normal, active bowel sounds MUSCULOSKELETAL: Extremities without clubbing, cyanosis, or edema. NEURO: awake and alert Medications and IVs Current Medications Sodium Chloride 1,000 ml @ 999 mls/hr BOLUS ONCE IV Last administered on 07/22 07:45; Start 07/22/17 at 07:30; Stop 07/22/17 at 08:30; Status DC Sodium Chloride 1,000 ml @ 999 mls/hr BOLUS ONCE IV Last administered on 07/22 07:45; Start 07/22/17 at 07:30; Stop 07/22/17 at 08:30; Status DC Insulin Human Regular (NovoLIN R INJ) 7 units ONCE ONCE IV PUSH Last administered on 07/22/17 07:46; Start 07/22/17 at 07:30; Stop 07/22/17 at 07:31 ; Status DC Ceftriaxone Sodium 1000 mg/ Sodium Chloride 100 ml @ 200 mls/hr ONCE ONCE IV Last administered on 07/22/17 09:21; Start 07/22/17 at 09:00; Stop 07/22/17 at 09:29; Status DC Azithromycin (Zithromax) 500 mg ONCE ONCE PO Last administered on 07/22/17 09 :21; Start 07/22/17 at 09:00; Stop 07/22/17 at 09:01; Status DC Aspirin (Aspirin Chew) 81 mg BID CHEW Last administered on 07/27/17 20:21; Start 07/22/17 at 21:00; Status Future Hold Clonidine (Catapres) 0.1 mg DAILY PRN PO INCREASE IN BLOOD PRESSURE; Start 10/26 at 09:30 Glyburide (Diabeta) 5 mg DAILY PO Last administered on 07/28/17 09:28; Start 07/23/17 at 09:00 Hydrocortisone (Cortef) 5 mg BID PO Last administered on 07/28/17 09:28; Start 07/22/17 at 21:00 Lisinopril (Prinivil) 10 mg HS PO Last administered on 07/27/17 20:21; Start 07/22/17 at 21:00 Metoprolol Succinate (Toprol Xl) 50 mg BID PO Last administered on 07/28/17 09 :28; Start 07/22/17 at 21:00 Dextrose (D50w (Vial) Inj) 25 ml UNSCH PRN IV PUSH HYPOGLYCEMIA-SEE COMMENTS; Start 07/22/17 at 09:30 Glucagon (Glucagon Inj) 1 mg UNSCH PRN OTHER HYPOGLYCEMIA-SEE COMMENTS; Start 07/22/17 at 09:30 Insulin Human Regular (NovoLIN R SUPPLEMENTAL SCALE) 1 ACHS SLIDING SCALE SQ Last administered on 07/27/17 20:24; Start 07/22/17 at 11:00 Ceftriaxone Sodium 1000 mg/ Sodium Chloride 100 ml @ 200 mls/hr Q24H IV Last administered on 07/28/17 09:29; Start 07/23/17 at 09:00; Stop 07/28/17 at 10:38 ; Status DC Azithromycin 500 mg/Sodium Chloride 250 ml @ 250 mls/hr Q24H IV Last administered on 07/24/17 10:19; Start 07/23/17 at 10:00; Stop 07/25/17 at 12:33 ; Status DC Albuterol/ Ipratropium (Duoneb Neb) 1 ampule QID NEB NEB Last administered on 07/26/17 08:00; Start 07/22/17 at 12:00; Stop 07/26/17 at 11:59; Status DC Albuterol/ Ipratropium (Duoneb Neb) 1 ampule Q2HR NEB PRN NEB short of breath; Start 07/22/17 at 09:30 Sodium Chloride 1,000 ml @ 70 mls/hr [id number] IV Last administered on 21:04; Start 07/22/17 at 09:29; Stop 07/26/17 at 03:17; Status DC Sodium Chloride (NS Flush) 2 ml UNSCH PRN IV FLUSH FLUSH AFTER USING IV ACCESS ; Start 07/22/17 at 09:30 Sodium Chloride (NS Flush) 2 ml BID IV FLUSH Last administered on 07/28/17 09: 29; Start 07/22/17 at 21:00 Heparin Sodium (Porcine) (Heparin Inj) 5,000 units Q8H SQ Last administered on 07/28/17 09:28; Start 07/22/17 at 10:00 Naloxone HCl (Narcan Inj) 0.4 mg UNSCH PRN IV SEE LABEL COMMENTS; Start at 09:30 Senna/Docusate Sodium (Janine-Colace) 1 tab BID PO Last administered on 09:28; Start 07/22/17 at 21:00 Magnesium Hydroxide (Milk Of Magnesia Liq) 30 ml Q12H PRN PO MILD - MODERATE CONSTIPATION; Start 07/22/17 at 09:30 Sennosides (Senokot) 17.2 mg Q12H PRN PO MODERATE - SEVERE CONSTIPATION; Start 07/22/17 at 09:30 Bisacodyl (Dulcolax Supp) 10 mg DAILY PRN RECTAL SEVERE CONSITIPATION; Start at 09:30 Miscellaneous (Pill Splitter) 1 ea UNSCH PRN OTHER SEE LABEL COMMENTS; Start at 09:45 Potassium Chloride (KCl) 40 meq ONCE ONCE PO Last administered on 07/23/17 18 :38; Start 07/23/17 at 13:00; Stop 07/23/17 at 13:01; Status DC Pharmacy Profile Note 0 ml @ 0 mls/hr UNSCH OTHER ; Start 07/23/17 at 17:15; Stop 07/25/17 at 12:33; Status DC Vancomycin HCl 1250 mg/Sodium Chloride 262.5 ml @ 250 mls/hr Q12H IV Last administered on 07/25/17 07:21; Start 07/23/17 at 18:00; Stop 07/25/17 at 12:33 ; Status DC Miscellaneous Information SPECIFIC LAB TO BE DRAWN:VANCO TROUGH DATE TO BE DR... ONCE ONCE .XX Last administered on 07/25/17 05:45; Start 07/25/17 at 05 :45; Stop 07/25/17 at 05:46; Status DC Potassium Chloride (KCl) 40 meq ONCE ONCE PO Last administered on 07/24/17 18 :30; Start 07/24/17 at 18:15; Stop 07/24/17 at 18:21; Status DC Miscellaneous Information SPECIFIC LAB TO BE PAPITO... ONCE ONCE .XX ; Start 07/26 at 05:45; Stop 07/26/17 at 05:46; Status DC Insulin Detemir (Levemir Inj) 5 units HS SQ Last administered on 07/25/17 21: 04; Start 07/25/17 at 21:00; Stop 07/26/17 at 10:24; Status DC Insulin Aspart (NovoLOG INJ) 2 units TIDAC SQ Last administered on 07/27/17 17 :00; Start 07/25/17 at 17:00 Lorazepam (Ativan Inj) 0.5 mg ONCE ONCE IV PUSH Last administered on 00:48; Start 07/26/17 at 00:00; Stop 07/26/17 at 00:01; Status DC Ipratropium [place] (Atrovent Neb) 0.5 mg ONCE ONCE NEB Last administered on 01:30; Start 07/26/17 at 00:00; Stop 07/26/17 at 00:01; Status DC Metoprolol Tartrate (Lopressor) 25 mg ONCE ONCE PO Last administered on 02:35; Start 07/26/17 at 02:00; Stop 07/26/17 at 02:01; Status DC Furosemide (Lasix Inj) 20 mg ONCE ONCE IV PUSH Last administered on 07/26/17 03:44; Start 07/26/17 at 03:15; Stop 07/26/17 at 03:27; Status DC Insulin Detemir (Levemir Inj) 10 units HS SQ Last administered on 07/26/17 20: 16; Start 07/26/17 at 21:00; Stop 07/27/17 at 09:36; Status DC Iohexol (Omnipaque 350 Inj) 85 ml STK-MED ONCE IVCONTRAST Last administered on 07/26/17 21:34; Start 07/26/17 at 21:34; Stop 07/26/17 at 21:35; Status DC Insulin Detemir (Levemir Inj) 15 units HS SQ Last administered on 07/27/17 20: 23; Start 07/27/17 at 21:00 Potassium Chloride (KCl) 40 meq ONCE ONCE PO Last administered on 07/27/17 11 :50; Start 07/27/17 at 09:45; Stop 07/27/17 at 09:46; Status DC Tamsulosin HCl (Flomax) 0.4 mg DAILY PO Last administered on 07/28/17 09:28; Start 07/27/17 at 13:30 Fluconazole/ Sodium Chloride 100 ml @ 100 mls/hr Q24H IV ; Start 07/28/17 at 12 :00 Levofloxacin (Levaquin) 500 mg DAILY PO ; Start 07/28/17 at 12:00 A/P Assessment and Plan A/P Sepsis (tachycardia, leukocytosis with mild bandemia, lactic acid level) suspect secondary to UTI Dehydration suspect secondary to above vs dysphagia - continue IV antibiotic per ID. -continue neb treatment. - diet per ST evaluation. bacteriuria/ UTI/ with bilateral hydronephrosis continue IV antibiotic Urology consult appreciated; d/w today and plan for suprapubic catheter placement later this week. ID following. Uncontrolled diabetes mellitus with hyperglycemia -continue Levemir - Continue home Glyburide. - ACCU check Q4h, sliding scale insulin, cover as needed. Monitor closely. Hypertension, chronic: Continue home Lisinopril. Clonidine PRN available. Monitor BPs closely. hypokalemia; replaced. CAD: Continue home aspirin. DVT prophylaxis: SCDs/Heparin. DNR status per my discussion with the daughter. Discharge Planning previously d/w the daughter; Ms.Barbara Veliz; [phone]- dc planning to SNF when cleared by urology and ID. Shaniqua Jones MD Jul 28, 2017 11:43
[2017-07-28] MEDS: LEVOFLOXACIN 500 MG TAB PO SCH (13:52)
[2017-07-28] MEDS: FLUCONAZOLE 200 MG PREMIX BAG 100 ML IV SCH (14:24)
[2017-07-28 16:00] VITALS: BP 129/94; PULSE 95; RESP 20; TEMP 98.4; O2SAT 96
[2017-07-28 20:00] VITALS: BP 118/66; PULSE 92; RESP 20; TEMP 97; O2SAT 96
[2017-07-28] MEDS: INSULIN DETEMIR 100 UNITS/ML VIAL SQ SCH (23:04)
[2017-07-28] MEDS: LISINOPRIL 10 MG TAB PO SCH (23:04)
[2017-07-29] VITALS (8 sets, daily range): BP systolic 111–145; BP diastolic 62–79; PULSE 76–91; RESP 17–22; TEMP 96.7–97.8; O2SAT 95–97
[2017-07-29] MEDS: HEPARIN SODIUM - SQ 10,000 UNITS/ML VIAL SQ SCH (05:59)
[2017-07-29 07:53] LABS: AUTOMATED NEUTROPHIL # 11.1 TH/MM3 (1.8-7.7); BASOPHIL % 0.2 % (0.0-2.0); EOSINOPHIL # 0.1 TH/MM3 (0-0.4); EOSINOPHIL % 0.9 % (0.0-4.0); HEMATOCRIT 38.8 % (39.0-51.0); HEMO FLAGS DIFF FINAL; LYMPH % 11.6 % (9.0-44.0); LYMPHOCYTE # 1.6 TH/MM3 (1.0-4.8); MEAN CELL VOLUME 88.3 FL (80.0-100.0); MEAN CORPUSCULAR HEMOGLOBIN 28.4 PG (27.0-34.0); MEAN CORPUSCULAR HGB CONC 32.1 % (32.0-36.0); MONO % 6.8 % (0.0-8.0); NEUT % 80.5 % (16.0-70.0); PLATELET COUNT 365 TH/MM3 (150-450); RED BLOOD COUNT 4.39 MIL/MM3 (4.50-5.90); WHITE BLOOD COUNT 13.7 TH/MM3 (4.0-11.0)
[2017-07-29] MEDS: INSULIN NovoLIN REGULAR SUPPLEMENTAL SCALE SQ SCH ×4 (08:00→21:00)
[2017-07-29] MEDS: INSULIN ASPART 1,000 UNITS/10 ML VIAL SQ SCH ×3 (08:00→17:38)
[2017-07-29 08:30] LABS: POTASSIUM 3.1 MEQ/L (3.5-5.1)
--- NOTE | 2017-07-29 08:36 | HHI.PR ---
Subjective Patient symptoms today Pt seen and examined. Awake and alert. Objective Vital Signs Vital Signs Date Time Temp Pulse Resp B/P (MAP) Pulse Ox O2 Delivery O2 Flow Rate FiO2 07/29/17 00:00 97.0 81 22 126/65 (85) 97 07/28/17 20:00 97.0 92 20 118/66 (83) 96 07/28/17 16:00 98.4 95 20 129/94 (106) 96 07/28/17 12:00 97.8 92 18 143/84 (103) 90 Intake & Output 07/29/17 07/29/17 07:00 19:00 # Voids 3 # Bowel Movements 1 Result Diagram: 07/29/1753007/29/17530 Objective Remarks Abd: soft,nt,nd 07/28 Abd: soft,nt,nd Medications and IVs Current Medications Medications (Trade) Dose Ordered Sig/Shanel Route Start Time Stop Time Status Last Admin (Aspirin Chew) 81 mg BID CHEW 07/22/17 21:00 Future Hold 07/27/17 20:21 (Catapres) 0.1 mg DAILY PRN PO 07/22/17 09:30 (Diabeta) 5 mg DAILY PO 07/23/17 09:00 07/28/17 09:28 (Cortef) 5 mg BID PO 07/22/17 21:00 07/28/17 23:03 (Prinivil) 10 mg HS PO 07/22/17 21:00 07/28/17 23:04 (Toprol Xl) 50 mg BID PO 07/22/17 21:00 07/28/17 23:04 (D50w (Vial) Inj) 25 ml UNSCH PRN IV PUSH 07/22/17 09:30 (Glucagon Inj) 1 mg UNSCH PRN OTHER 07/22/17 09:30 (NovoLIN R SUPPLEMENTAL SCALE) 1 ACHS SLIDING SCALE SQ 07/22/17 11:00 07/28/17 23:05 (Duoneb Neb) 1 ampule Q2HR NEB PRN NEB 07/22/17 09:30 (NS Flush) 2 ml UNSCH PRN IV FLUSH 07/22/17 09:30 (NS Flush) 2 ml BID IV FLUSH 07/22/17 21:00 07/28/17 23:11 (Heparin Inj) 5,000 units Q8H SQ 07/22/17 10:00 07/29/17 05:59 (Narcan Inj) 0.4 mg UNSCH PRN IV 07/22/17 09:30 (Janine-Colace) 1 tab BID PO 07/22/17 21:00 07/28/17 09:28 (Milk Of Magnesia Liq) 30 ml Q12H PRN PO 07/22/17 09:30 (Senokot) 17.2 mg Q12H PRN PO 07/22/17 09:30 (Dulcolax Supp) 10 mg DAILY PRN RECTAL 07/22/17 09:30 (Pill Splitter) 1 ea UNSCH PRN OTHER 07/22/17 09:45 (NovoLOG INJ) 2 units TIDAC SQ 07/25/17 17:00 07/28/17 18:07 (Levemir Inj) 15 units HS SQ 07/27/17 21:00 07/28/17 23:04 (Flomax) 0.4 mg DAILY PO 07/27/17 13:30 07/28/17 09:28 Fluconazole/ Sodium Chloride 100 ml @ 100 mls/hr Q24H IV 07/28/17 12:00 07/28/17 14:24 (Levaquin) 500 mg DAILY PO 07/28/17 12:00 07/28/17 13:52 Assessment and Plan Assessment and Plan 89 y.o male with BPH with obstruction and MEDEL with UTI Recommend placement of SP tube later this week. 07/28 89 y.o male with BPH with obstruction and MEDEL with UTI Long discussion with pt's daughter, Lola yesterday concerning placement of SP tube insertion Family understands and agrees. NPO after MN SP tube insertion in AM. Shaheen Armstrong DO Jul 29, 2017 08:36
[2017-07-29] MEDS: DOCUSATE SODIUM 50 MG/SENNA 8.6 MG TAB PO SCH ×2 (09:00→21:37)
[2017-07-29] MEDS: SODIUM CHLORIDE 0.9% FLUSH 10 ML FLUSH IV FLUSH SCH ×2 (09:03→21:37)
[2017-07-29] MEDS: LEVOFLOXACIN 500 MG TAB PO SCH (09:03)
[2017-07-29] MEDS: TAMSULOSIN HCL 0.4 MG CAP PO SCH (09:03)
[2017-07-29] MEDS: METOPROLOL SUCCINATE 50 MG EXTENDED RELEASE TAB PO SCH ×2 (09:03→21:37)
[2017-07-29] MEDS: HYDROCORTISONE 10 MG TAB PO SCH ×2 (09:03→21:36)
[2017-07-29] MEDS: glyBURIDE 5 MG TAB PO SCH (09:03)
--- NOTE | 2017-07-29 12:03 | HHI.PR ---
Subjective Remarks resting comfortably with no distress. denies pain. no fever. d/w the RN and no acute issues over night. Objective Vitals Vital Signs Date Time Temp Pulse Resp B/P (MAP) Pulse Ox O2 Delivery O2 Flow Rate FiO2 07/29/17 08:00 96.9 91 19 145/79 (101) 95 07/29/17 00:00 97.0 81 22 126/65 (85) 97 07/28/17 20:00 97.0 92 20 118/66 (83) 96 07/28/17 16:00 98.4 95 20 129/94 (106) 96 I/O 07/28/17 07/28/17 07/28/17 07/29/17 07/29/17 07/29/17 07:00 15:00 23:00 07:00 15:00 23:00 Intake Total 320 ml 120 ml 1400 ml 120 ml Output Total 900 ml Balance 320 ml 120 ml 500 ml 120 ml Intake Oral 320 ml 120 ml 1200 ml 120 ml IV Total 200 ml Output Urine Total 900 ml # Voids 4 3 # Bowel Movements 0 5 1 Result Diagram: 07/29/17 0531 07/29/17 0531 Imaging Last Impressions Chest X-Ray 07/26/17 0000 Signed Impressions: Service Date/Time: Wednesday, July 26, 2017 01:54 - CONCLUSION: 1. Developing interstitial prominence suggesting some degree of vascular congestion or volume overload. 2. Stable biapical emphysematous changes, right greater than left. Nash Armijo MD Abdomen/Pelvis CT 07/26/17 0000 Signed Impressions: Service Date/Time: Wednesday, July 26, 2017 21:18 - CONCLUSION: 1. There are cysts of the left kidney. The left upper pole cyst is slightly complex but stable back to 2010. No evidence of a solid/concerning renal lesion. 2. Markedly enlarged prostate with wall thickening and probable trabeculation of the urinary bladder and also probable chronic reflux and/or obstruction of both ureters. There is moderate to severe bilateral hydronephrosis/hydroureter, worse since 2010. No stones are demonstrated. 3. Cholelithiasis without evidence of cholecystitis or biliary obstruction. 4. Large stool in the rectum. 5. Large umbilical hernia containing large bowel. No obstruction or evidence of incarceration. 6. Small effusions and mild atelectasis seen of the visualized lung bases. Chin Noland MD Renal Ultrasound 07/25/17 0000 Signed Impressions: Service Date/Time: Tuesday, July 25, 2017 14:17 - CONCLUSION: Abnormal renal ultrasound. Scan with contrast is suggested if the patient can tolerate such. Shivam Marc MD FACR Objective Remarks GENERAL: elderly male, in no apparent distress. CARDIOVASCULAR: Regular rate and regular rhythm without murmurs, gallops, or rubs. RESPIRATORY: Clear to auscultation. Breath sounds equal bilaterally. No wheezes , rales, or rhonchi. GASTROINTESTINAL: Abdomen soft, non-tender, nondistended. Normal, active bowel sounds MUSCULOSKELETAL: Extremities without clubbing, cyanosis, or edema. NEURO: awake and alert Medications and IVs Current Medications Sodium Chloride 1,000 ml @ 999 mls/hr BOLUS ONCE IV Last administered on 07/22 07:45; Start 07/22/17 at 07:30; Stop 07/22/17 at 08:30; Status DC Sodium Chloride 1,000 ml @ 999 mls/hr BOLUS ONCE IV Last administered on 07/22 07:45; Start 07/22/17 at 07:30; Stop 07/22/17 at 08:30; Status DC Insulin Human Regular (NovoLIN R INJ) 7 units ONCE ONCE IV PUSH Last administered on 07/22/17 07:46; Start 07/22/17 at 07:30; Stop 07/22/17 at 07:31 ; Status DC Ceftriaxone Sodium 1000 mg/ Sodium Chloride 100 ml @ 200 mls/hr ONCE ONCE IV Last administered on 07/22/17 09:21; Start 07/22/17 at 09:00; Stop 07/22/17 at 09:29; Status DC Azithromycin (Zithromax) 500 mg ONCE ONCE PO Last administered on 07/22/17 09 :21; Start 07/22/17 at 09:00; Stop 07/22/17 at 09:01; Status DC Aspirin (Aspirin Chew) 81 mg BID CHEW Last administered on 07/27/17 20:21; Start 07/22/17 at 21:00; Status Future Hold Clonidine (Catapres) 0.1 mg DAILY PRN PO INCREASE IN BLOOD PRESSURE; Start 10/26 at 09:30 Glyburide (Diabeta) 5 mg DAILY PO Last administered on 07/29/17 09:03; Start 07/23/17 at 09:00 Hydrocortisone (Cortef) 5 mg BID PO Last administered on 07/29/17 09:03; Start 07/22/17 at 21:00 Lisinopril (Prinivil) 10 mg HS PO Last administered on 07/28/17 23:04; Start 07/22/17 at 21:00 Metoprolol Succinate (Toprol Xl) 50 mg BID PO Last administered on 07/29/17 09 :03; Start 07/22/17 at 21:00 Dextrose (D50w (Vial) Inj) 25 ml UNSCH PRN IV PUSH HYPOGLYCEMIA-SEE COMMENTS; Start 07/22/17 at 09:30 Glucagon (Glucagon Inj) 1 mg UNSCH PRN OTHER HYPOGLYCEMIA-SEE COMMENTS; Start 07/22/17 at 09:30 Insulin Human Regular (NovoLIN R SUPPLEMENTAL SCALE) 1 ACHS SLIDING SCALE SQ Last administered on 07/28/17 23:05; Start 07/22/17 at 11:00 Ceftriaxone Sodium 1000 mg/ Sodium Chloride 100 ml @ 200 mls/hr Q24H IV Last administered on 07/28/17 09:29; Start 07/23/17 at 09:00; Stop 07/28/17 at 10:38 ; Status DC Azithromycin 500 mg/Sodium Chloride 250 ml @ 250 mls/hr Q24H IV Last administered on 07/24/17 10:19; Start 07/23/17 at 10:00; Stop 07/25/17 at 12:33 ; Status DC Albuterol/ Ipratropium (Duoneb Neb) 1 ampule QID NEB NEB Last administered on 07/26/17 08:00; Start 07/22/17 at 12:00; Stop 07/26/17 at 11:59; Status DC Albuterol/ Ipratropium (Duoneb Neb) 1 ampule Q2HR NEB PRN NEB short of breath; Start 07/22/17 at 09:30 Sodium Chloride 1,000 ml @ 70 mls/hr [id number] IV Last administered on 21:04; Start 07/22/17 at 09:29; Stop 07/26/17 at 03:17; Status DC Sodium Chloride (NS Flush) 2 ml UNSCH PRN IV FLUSH FLUSH AFTER USING IV ACCESS ; Start 07/22/17 at 09:30 Sodium Chloride (NS Flush) 2 ml BID IV FLUSH Last administered on 07/29/17 09: 03; Start 07/22/17 at 21:00 Heparin Sodium (Porcine) (Heparin Inj) 5,000 units Q8H SQ Last administered on 07/29/17 05:59; Start 07/22/17 at 10:00; Status Future Hold Naloxone HCl (Narcan Inj) 0.4 mg UNSCH PRN IV SEE LABEL COMMENTS; Start at 09:30 Senna/Docusate Sodium (Janine-Colace) 1 tab BID PO Last administered on 09:00; Start 07/22/17 at 21:00 Magnesium Hydroxide (Milk Of Magnesia Liq) 30 ml Q12H PRN PO MILD - MODERATE CONSTIPATION; Start 07/22/17 at 09:30 Sennosides (Senokot) 17.2 mg Q12H PRN PO MODERATE - SEVERE CONSTIPATION; Start 07/22/17 at 09:30 Bisacodyl (Dulcolax Supp) 10 mg DAILY PRN RECTAL SEVERE CONSITIPATION; Start at 09:30 Miscellaneous (Pill Splitter) 1 ea UNSCH PRN OTHER SEE LABEL COMMENTS; Start at 09:45 Potassium Chloride (KCl) 40 meq ONCE ONCE PO Last administered on 07/23/17 18 :38; Start 07/23/17 at 13:00; Stop 07/23/17 at 13:01; Status DC Pharmacy Profile Note 0 ml @ 0 mls/hr UNSCH OTHER ; Start 07/23/17 at 17:15; Stop 07/25/17 at 12:33; Status DC Vancomycin HCl 1250 mg/Sodium Chloride 262.5 ml @ 250 mls/hr Q12H IV Last administered on 07/25/17 07:21; Start 07/23/17 at 18:00; Stop 07/25/17 at 12:33 ; Status DC Miscellaneous Information SPECIFIC LAB TO BE DRAWN:VANCO TROUGH DATE TO BE DR... ONCE ONCE .XX Last administered on 07/25/17 05:45; Start 07/25/17 at 05 :45; Stop 07/25/17 at 05:46; Status DC Potassium Chloride (KCl) 40 meq ONCE ONCE PO Last administered on 07/24/17 18 :30; Start 07/24/17 at 18:15; Stop 07/24/17 at 18:21; Status DC Miscellaneous Information SPECIFIC LAB TO BE ... ONCE ONCE .XX ; Start 07/26 at 05:45; Stop 07/26/17 at 05:46; Status DC Insulin Detemir (Levemir Inj) 5 units HS SQ Last administered on 07/25/17 21: 04; Start 07/25/17 at 21:00; Stop 07/26/17 at 10:24; Status DC Insulin Aspart (NovoLOG INJ) 2 units TIDAC SQ Last administered on 07/28/17 18 :07; Start 07/25/17 at 17:00 Lorazepam (Ativan Inj) 0.5 mg ONCE ONCE IV PUSH Last administered on 00:48; Start 07/26/17 at 00:00; Stop 07/26/17 at 00:01; Status DC Ipratropium [place] (Atrovent Neb) 0.5 mg ONCE ONCE NEB Last administered on 01:30; Start 07/26/17 at 00:00; Stop 07/26/17 at 00:01; Status DC Metoprolol Tartrate (Lopressor) 25 mg ONCE ONCE PO Last administered on 02:35; Start 07/26/17 at 02:00; Stop 07/26/17 at 02:01; Status DC Furosemide (Lasix Inj) 20 mg ONCE ONCE IV PUSH Last administered on 07/26/17 03:44; Start 07/26/17 at 03:15; Stop 07/26/17 at 03:27; Status DC Insulin Detemir (Levemir Inj) 10 units HS SQ Last administered on 07/26/17 20: 16; Start 07/26/17 at 21:00; Stop 07/27/17 at 09:36; Status DC Iohexol (Omnipaque 350 Inj) 85 ml STK-MED ONCE IVCONTRAST Last administered on 07/26/17 21:34; Start 07/26/17 at 21:34; Stop 07/26/17 at 21:35; Status DC Insulin Detemir (Levemir Inj) 15 units HS SQ Last administered on 07/28/17 23: 04; Start 07/27/17 at 21:00 Potassium Chloride (KCl) 40 meq ONCE ONCE PO Last administered on 07/27/17 11 :50; Start 07/27/17 at 09:45; Stop 07/27/17 at 09:46; Status DC Tamsulosin HCl (Flomax) 0.4 mg DAILY PO Last administered on 07/29/17 09:03; Start 07/27/17 at 13:30 Fluconazole/ Sodium Chloride 100 ml @ 100 mls/hr Q24H IV Last administered on 07/28/17 14:24; Start 07/28/17 at 12:00 Levofloxacin (Levaquin) 500 mg DAILY PO Last administered on 07/29/17 09:03; Start 07/28/17 at 12:00 A/P Assessment and Plan A/P Sepsis (tachycardia, leukocytosis with mild bandemia, lactic acid level) suspect secondary to UTI Dehydration suspect secondary to above vs dysphagia - continue antibiotics per ID. -continue neb treatment. - diet per ST evaluation. bacteriuria/ UTI/ with bilateral hydronephrosis continue antibiotics Urology f/u appreciated; plan for suprapubic catheter placement tomorrow. ID following. Uncontrolled diabetes mellitus with hyperglycemia -continue Levemir - Continue home Glyburide. - ACCU check Q4h, sliding scale insulin, cover as needed. Monitor closely. Hypertension, chronic: Continue home Lisinopril. Clonidine PRN available. Monitor BPs closely. hypokalemia; will replace and monitor. CAD: Continue home aspirin. DVT prophylaxis: SCDs/Heparin. DNR status per my discussion with the daughter. Discharge Planning previously d/w the daughter; Ms.Barbara Veliz; [phone]- dc planning to SNF when cleared by urology and ID. Shaniqua Jones MD Jul 29, 2017 12:03
[2017-07-29] MEDS: FLUCONAZOLE 200 MG PREMIX BAG 100 ML IV SCH (12:23)
[2017-07-29] MEDS ORDERED: POTASSIUM CHLORIDE 10 MEQ CONTROLLED RELEASE TAB PO ONE ×2 (12:30→16:00)
[2017-07-29 13:16] LABS: BACTERIA, URINE FEW /hpf; BLOOD, URINE MOD (NEG); GLUCOSE,URINE NEG (NEG); KETONE, URINE NEG (NEG); NITRITE,URINE NEG (NEG); PH, URINE 5.5 (5.0-8.5); URINE COLOR YELLOW (YELLW/STRAW)
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
[2017-07-29] MEDS ORDERED: FLUCONAZOLE 200 MG TAB PO ONE (17:30)
[2017-07-29] MEDS: LISINOPRIL 10 MG TAB PO SCH (21:37)
[2017-07-29] MEDS ORDERED: SODIUM CHLOR 0.9% 1000 ML INJ 1,000 ML IV ONE (23:00)
[2017-07-30 00:38] VITALS: BP 148/72; PULSE 91; RESP 20; TEMP 95.4; O2SAT 93
[2017-07-30] MEDS ORDERED: LACTATED RINGER'S 1000 ML IV PRN (02:00)
[2017-07-30] MEDS ORDERED: CHLORHEXIDINE GLUCONATE 2 % 1 PACK (2 CLOTHS) TOPICAL PRN (02:00)
[2017-07-30] MEDS ORDERED: INSULIN HUMAN REGULAR 1,000 UNITS/10 ML VIAL SQ PRN (02:00)
[2017-07-30] MEDS ORDERED: POVIDONE IODINE 5% (ANTISEPSIS KIT) 4 APPLICATIONS EACH NARE PRN (02:00)
[2017-07-30] MEDS ORDERED: SODIUM CHLORID 0.9% 500 ML IV PRN (02:00)
[2017-07-30 04:11] VITALS: BP 143/72; PULSE 83; RESP 20; TEMP 95.6; O2SAT 93
[2017-07-30 07:51] VITALS: BP 157/79; PULSE 86; RESP 19; TEMP 98; O2SAT 95
[2017-07-30] MEDS: INSULIN NovoLIN REGULAR SUPPLEMENTAL SCALE SQ SCH ×4 (08:00→23:12)
[2017-07-30] MEDS: INSULIN ASPART 1,000 UNITS/10 ML VIAL SQ SCH ×3 (08:00→16:52)
[2017-07-30] MEDS: SODIUM CHLORIDE 0.9% FLUSH 10 ML FLUSH IV FLUSH SCH ×2 (08:11→21:18)
[2017-07-30] MEDS: glyBURIDE 5 MG TAB PO SCH (08:13)
[2017-07-30] MEDS: FLUCONAZOLE 200 MG TAB PO SCH (08:14)
[2017-07-30] MEDS: HYDROCORTISONE 10 MG TAB PO SCH ×2 (08:14→21:07)
[2017-07-30] MEDS: TAMSULOSIN HCL 0.4 MG CAP PO SCH (08:14)
[2017-07-30] MEDS: DOCUSATE SODIUM 50 MG/SENNA 8.6 MG TAB PO SCH ×2 (08:14→21:07)
[2017-07-30] MEDS: LEVOFLOXACIN 500 MG TAB PO SCH (08:14)
[2017-07-30] MEDS: METOPROLOL SUCCINATE 50 MG EXTENDED RELEASE TAB PO SCH ×2 (08:14→21:07)
[2017-07-30] MEDS ORDERED: PROPOFOL 200 MG/20 ML AMP ONE (10:53)
[2017-07-30] MEDS ORDERED: ceFAZolin INJ 1,000 MG VIAL IV ONE (12:00)
[2017-07-30] MEDS ORDERED: PROPOFOL 200 MG/20 ML AMP IV ONE (12:00)
[2017-07-30] MEDS ORDERED: PHENYLEPH/NS 1000 MCG/10 ML SYR IV ONE (12:00)
[2017-07-30] MEDS ORDERED: ONDANSETRON HCL 4 MG/2 ML VIAL IV PUSH ONE (12:00)
[2017-07-30] MEDS ORDERED: BUPIVACAINE HCL PF 0.25% 30 ML VIAL INFIL ONE (12:00)
[2017-07-30] MEDS ORDERED: ePHEDrine/NS 25 MG/5 ML SYR IV ONE (12:00)
[2017-07-30] MEDS ORDERED: DEXAMETHASONE SOD PHOS 4 MG/ML VIAL IV ONE (12:00)
--- NOTE | 2017-07-30 12:36 | PD.OP ---
Operative Report Date of Surgery: Jul 30, 2017 Preoperative Diagnosis: BPH with bladder outlet obstruction and urinary retention Postoperative Diagnosis: Same Procedure: Cystoscopy with placement of suprapubic tube catheter Anesthesia: Gen. LMA Surgeon: Shaheen Armstrong Business Support Manager(s): None Resident Surgeon: None Operation and Findings: 89-year-old male with history of BPH with obstruction and urinary retention. CT scan on admission demonstrated a prostate approximately 100 g in size and the patient has been on alpha beth therapy in the past and presented with a UTI. He's had ongoing urinary tract infections over the last few years and decision was made to proceed with placement of suprapubic tube catheter. Risk and benefits were discussed with his daughter Lola as well as patient will enable willing to proceed. Patient was brought to the operating room and identified by myself as Rodrigue Courtney. He was placed in the dorsal lithotomy position, prepped and draped in usual sterile fashion, received preprocedure antibiotics, and general LMA anesthesia was administered. He was placed in the Trendelenburg position. Flexible cystoscope was inserted in the bladder and a large coapting prostate was identified within the prostatic urethra. The bladder was noted to have trabeculations throughout but no other abnormalities were identified. The [place] retractor was then inserted into the bladder and palpated over the area of the suprapubic region. 0.5% Marcaine was then instilled in the area of the retractor. 15 blade was then used to make the incision over the area over the last retractor was palpated. It is approximately 2 cm in size. The Bovie cautery was then used to cut through the fat and fascia overlying the retractor to come through the skin. A 22 [place] Barton catheter was then grasped with a retractor and brought out through the urethral meatus. The catheter then was placed in the correct position and 20 cc of sterile water were placed in the balloon. Catheter placed was confirmed on flexible cystoscopy. A 2-0 silk was then used to anchor the catheter to the skin. He was awoken, extubated and transferred recovery room in stable condition. Shaheen Armstrong DO Jul 30, 2017 12:36
[2017-07-30] MEDS ORDERED: DO NOT ADM ANY ANTICOAGULANT DRUGS PRN (12:45)
[2017-07-30 13:40] VITALS: BP 136/65; PULSE 87; RESP 19; TEMP 97.8; O2SAT 94
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
--- NOTE | 2017-07-30 14:14 | HHI.PR ---
Subjective Remarks in no distress. denies pain. no new complaints. afebrile. Objective Vitals Vital Signs Date Time Temp Pulse Resp B/P (MAP) Pulse Ox O2 Delivery O2 Flow Rate FiO2 07/30/17 13:40 97.8 87 19 136/65 (88) 94 07/30/17 12:43 97.8 66 16 87/54 (65) 99 Nasal Cannula 2 07/30/17 07:51 98.0 86 19 157/79 (105) 95 07/30/17 04:11 95.6 83 20 143/72 (95) 93 07/30/17 00:38 95.4 91 20 148/72 (97) 93 07/29/17 21:32 96 Nasal Cannula 2.00 07/29/17 20:00 96.7 84 20 129/64 (85) 96 07/29/17 19:27 76 07/29/17 17:58 97 21 07/29/17 16:00 97.8 86 17 134/68 (90) 97 I/O 07/29/17 07/29/17 07/29/17 07/30/17 07/30/17 07/30/17 07:00 15:00 23:00 07:00 15:00 23:00 Intake Total 120 ml 1060 ml 457 ml 900 ml Output Total 800 ml 800 ml Balance 120 ml 260 ml 457 ml 100 ml Intake Oral 120 ml 960 ml 0 ml IV Total 100 ml 457 ml 900 ml Output Urine Total 800 ml 800 ml # Voids 3 2 # Bowel Movements 1 2 2 Result Diagram: 07/29/17 0531 07/30/17 0605 Imaging Last Impressions Chest X-Ray 07/26/17 0000 Signed Impressions: Service Date/Time: Wednesday, July 26, 2017 01:54 - CONCLUSION: 1. Developing interstitial prominence suggesting some degree of vascular congestion or volume overload. 2. Stable biapical emphysematous changes, right greater than left. Nash Armijo MD Abdomen/Pelvis CT 07/26/17 0000 Signed Impressions: Service Date/Time: Wednesday, July 26, 2017 21:18 - CONCLUSION: 1. There are cysts of the left kidney. The left upper pole cyst is slightly complex but stable back to 2010. No evidence of a solid/concerning renal lesion. 2. Markedly enlarged prostate with wall thickening and probable trabeculation of the urinary bladder and also probable chronic reflux and/or obstruction of both ureters. There is moderate to severe bilateral hydronephrosis/hydroureter, worse since 2010. No stones are demonstrated. 3. Cholelithiasis without evidence of cholecystitis or biliary obstruction. 4. Large stool in the rectum. 5. Large umbilical hernia containing large bowel. No obstruction or evidence of incarceration. 6. Small effusions and mild atelectasis seen of the visualized lung bases. Chin Noland MD Renal Ultrasound 07/25/17 0000 Signed Impressions: Service Date/Time: Tuesday, July 25, 2017 14:17 - CONCLUSION: Abnormal renal ultrasound. Scan with contrast is suggested if the patient can tolerate such. Shivam Marc MD FACR Objective Remarks GENERAL: elderly male, in no apparent distress. CARDIOVASCULAR: Regular rate and regular rhythm without murmurs, gallops, or rubs. RESPIRATORY: Clear to auscultation. Breath sounds equal bilaterally. No wheezes , rales, or rhonchi. GASTROINTESTINAL: Abdomen soft, non-tender, nondistended. Normal, active bowel sounds MUSCULOSKELETAL: Extremities without clubbing, cyanosis, or edema. NEURO: awake and alert Medications and IVs Current Medications Sodium Chloride 1,000 ml @ 999 mls/hr BOLUS ONCE IV Last administered on 07/22 07:45; Start 07/22/17 at 07:30; Stop 07/22/17 at 08:30; Status DC Sodium Chloride 1,000 ml @ 999 mls/hr BOLUS ONCE IV Last administered on 07/22 07:45; Start 07/22/17 at 07:30; Stop 07/22/17 at 08:30; Status DC Insulin Human Regular (NovoLIN R INJ) 7 units ONCE ONCE IV PUSH Last administered on 07/22/17 07:46; Start 07/22/17 at 07:30; Stop 07/22/17 at 07:31 ; Status DC Ceftriaxone Sodium 1000 mg/ Sodium Chloride 100 ml @ 200 mls/hr ONCE ONCE IV Last administered on 07/22/17 09:21; Start 07/22/17 at 09:00; Stop 07/22/17 at 09:29; Status DC Azithromycin (Zithromax) 500 mg ONCE ONCE PO Last administered on 07/22/17 09 :21; Start 07/22/17 at 09:00; Stop 07/22/17 at 09:01; Status DC Aspirin (Aspirin Chew) 81 mg BID CHEW Last administered on 07/27/17 20:21; Start 07/22/17 at 21:00; Status Future Hold Clonidine (Catapres) 0.1 mg DAILY PRN PO INCREASE IN BLOOD PRESSURE; Start 10/26 at 09:30 Glyburide (Diabeta) 5 mg DAILY PO Last administered on 07/29/17 09:03; Start 07/23/17 at 09:00 Hydrocortisone (Cortef) 5 mg BID PO Last administered on 07/30/17 08:14; Start 07/22/17 at 21:00 Lisinopril (Prinivil) 10 mg HS PO Last administered on 07/29/17 21:37; Start 07/22/17 at 21:00 Metoprolol Succinate (Toprol Xl) 50 mg BID PO Last administered on 07/30/17 08 :14; Start 07/22/17 at 21:00 Dextrose (D50w (Vial) Inj) 25 ml UNSCH PRN IV PUSH HYPOGLYCEMIA-SEE COMMENTS; Start 07/22/17 at 09:30 Glucagon (Glucagon Inj) 1 mg UNSCH PRN OTHER HYPOGLYCEMIA-SEE COMMENTS; Start 07/22/17 at 09:30 Insulin Human Regular (NovoLIN R SUPPLEMENTAL SCALE) 1 ACHS SLIDING SCALE SQ Last administered on 07/29/17 12:00; Start 07/22/17 at 11:00 Ceftriaxone Sodium 1000 mg/ Sodium Chloride 100 ml @ 200 mls/hr Q24H IV Last administered on 07/28/17 09:29; Start 07/23/17 at 09:00; Stop 07/28/17 at 10:38 ; Status DC Azithromycin 500 mg/Sodium Chloride 250 ml @ 250 mls/hr Q24H IV Last administered on 07/24/17 10:19; Start 07/23/17 at 10:00; Stop 07/25/17 at 12:33 ; Status DC Albuterol/ Ipratropium (Duoneb Neb) 1 ampule QID NEB NEB Last administered on 07/26/17 08:00; Start 07/22/17 at 12:00; Stop 07/26/17 at 11:59; Status DC Albuterol/ Ipratropium (Duoneb Neb) 1 ampule Q2HR NEB PRN NEB short of breath; Start 07/22/17 at 09:30 Sodium Chloride 1,000 ml @ 70 mls/hr [id number] IV Last administered on 21:04; Start 07/22/17 at 09:29; Stop 07/26/17 at 03:17; Status DC Sodium Chloride (NS Flush) 2 ml UNSCH PRN IV FLUSH FLUSH AFTER USING IV ACCESS ; Start 07/22/17 at 09:30 Sodium Chloride (NS Flush) 2 ml BID IV FLUSH Last administered on 07/29/17 21: 37; Start 07/22/17 at 21:00 Heparin Sodium (Porcine) (Heparin Inj) 5,000 units Q8H SQ Last administered on 07/29/17 05:59; Start 07/22/17 at 10:00; Status Future Hold Naloxone HCl (Narcan Inj) 0.4 mg UNSCH PRN IV SEE LABEL COMMENTS; Start at 09:30 Senna/Docusate Sodium (Janine-Colace) 1 tab BID PO Last administered on 08:14; Start 07/22/17 at 21:00 Magnesium Hydroxide (Milk Of Magnesia Liq) 30 ml Q12H PRN PO MILD - MODERATE CONSTIPATION; Start 07/22/17 at 09:30 Sennosides (Senokot) 17.2 mg Q12H PRN PO MODERATE - SEVERE CONSTIPATION; Start 07/22/17 at 09:30 Bisacodyl (Dulcolax Supp) 10 mg DAILY PRN RECTAL SEVERE CONSITIPATION; Start at 09:30 Miscellaneous (Pill Splitter) 1 ea UNSCH PRN OTHER SEE LABEL COMMENTS; Start at 09:45 Potassium Chloride (KCl) 40 meq ONCE ONCE PO Last administered on 07/23/17 18 :38; Start 07/23/17 at 13:00; Stop 07/23/17 at 13:01; Status DC Pharmacy Profile Note 0 ml @ 0 mls/hr UNSCH OTHER ; Start 07/23/17 at 17:15; Stop 07/25/17 at 12:33; Status DC Vancomycin HCl 1250 mg/Sodium Chloride 262.5 ml @ 250 mls/hr Q12H IV Last administered on 07/25/17 07:21; Start 07/23/17 at 18:00; Stop 07/25/17 at 12:33 ; Status DC Miscellaneous Information SPECIFIC LAB TO BE DRAWN:VANCO TROUGH DATE TO BE [email or web address] ONCE ONCE .XX Last administered on 07/25/17 05:45; Start 07/25/17 at 05 :45; Stop 07/25/17 at 05:46; Status DC Potassium Chloride (KCl) 40 meq ONCE ONCE PO Last administered on 07/24/17 18 :30; Start 07/24/17 at 18:15; Stop 07/24/17 at 18:21; Status DC Miscellaneous Information SPECIFIC LAB TO BE . ONCE ONCE .XX ; Start 07/26 at 05:45; Stop 07/26/17 at 05:46; Status DC Insulin Detemir (Levemir Inj) 5 units HS SQ Last administered on 07/25/17 21: 04; Start 07/25/17 at 21:00; Stop 07/26/17 at 10:24; Status DC Insulin Aspart (NovoLOG INJ) 2 units TIDAC SQ Last administered on 07/29/17 17 :38; Start 07/25/17 at 17:00 Lorazepam (Ativan Inj) 0.5 mg ONCE ONCE IV PUSH Last administered on 00:48; Start 07/26/17 at 00:00; Stop 07/26/17 at 00:01; Status DC Ipratropium [place] (Atrovent Neb) 0.5 mg ONCE ONCE NEB Last administered on 01:30; Start 07/26/17 at 00:00; Stop 07/26/17 at 00:01; Status DC Metoprolol Tartrate (Lopressor) 25 mg ONCE ONCE PO Last administered on 02:35; Start 07/26/17 at 02:00; Stop 07/26/17 at 02:01; Status DC Furosemide (Lasix Inj) 20 mg ONCE ONCE IV PUSH Last administered on 07/26/17 03:44; Start 07/26/17 at 03:15; Stop 07/26/17 at 03:27; Status DC Insulin Detemir (Levemir Inj) 10 units HS SQ Last administered on 07/26/17 20: 16; Start 07/26/17 at 21:00; Stop 07/27/17 at 09:36; Status DC Iohexol (Omnipaque 350 Inj) 85 ml STK-MED ONCE IVCONTRAST Last administered on 07/26/17 21:34; Start 07/26/17 at 21:34; Stop 07/26/17 at 21:35; Status DC Insulin Detemir (Levemir Inj) 15 units HS SQ Last administered on 07/28/17 23: 04; Start 07/27/17 at 21:00; Status Future Hold Potassium Chloride (KCl) 40 meq ONCE ONCE PO Last administered on 07/27/17 11 :50; Start 07/27/17 at 09:45; Stop 07/27/17 at 09:46; Status DC Tamsulosin HCl (Flomax) 0.4 mg DAILY PO Last administered on 07/30/17 08:14; Start 07/27/17 at 13:30 Fluconazole/ Sodium Chloride 100 ml @ 100 mls/hr Q24H IV Last administered on 07/29/17 12:23; Start 07/28/17 at 12:00; Stop 07/29/17 at 16:21; Status DC Levofloxacin (Levaquin) 500 mg DAILY PO Last administered on 07/30/17 08:14; Start 07/28/17 at 12:00 Potassium Chloride (KCl) 40 meq ONCE ONCE PO Last administered on 07/29/17 12 :31; Start 07/29/17 at 12:30; Stop 07/29/17 at 12:31; Status DC Potassium Chloride (KCl) 40 meq ONCE ONCE PO Last administered on 07/29/17 15 :35; Start 07/29/17 at 16:00; Stop 07/29/17 at 16:01; Status DC Sodium Chloride 1,000 ml @ 60 mls/hr [id number] ONCE IV Last administered on 07/29 21:43; Start 07/29/17 at 23:00; Stop 07/30/17 at 15:39 Fluconazole (Diflucan) 200 mg ONCE ONCE PO Last administered on 07/29/17 17: 37; Start 07/29/17 at 17:30; Stop 07/29/17 at 17:31; Status DC Fluconazole (Diflucan) 400 mg DAILY PO Last administered on 07/30/17t 08:14; Start 07/30/17 at 09:00 Lactated Ringer's 1,000 ml @ 30 mls/hr Q24H PRN IV SEE LABEL COMMENTS; Start at 02:00; Stop 08/02/17 at 01:59 Sodium Chloride 500 ml @ 30 mls/hr [id number] PRN IV SEE LABEL COMMENTS; Start at 02:00; Stop 08/02/17 at 01:59 Povidone Iodine (Betadine 5% Antisepsis Kit) 1 applic SOFTWARE SECURITY CONSULTANT PRN EACH NARE SEE LABEL COMMENTS; Start 07/30/17 at 02:00; Stop 08/02/17 at 01:59 Chlorhexidine Gluconate (Chlorhexidine 2% Cloth) 3 pack SOFTWARE SECURITY CONSULTANT PRN TOPICAL SEE LABEL COMMENTS; Start 07/30/17 at 02:00; Stop 08/02/17 at 01:59 Insulin Human Regular (NovoLIN R INJ) See Protocol Table ... SOFTWARE SECURITY CONSULTANT PRN SQ SEE PROTOCOL TABLE; Start 07/30/17 at 02:00; Stop 08/02/17 at 01:59 Propofol (Diprivan 200 Mg/20 ml Inj) 200 mg STK-MED ONCE .ROUTE ; Start at 10:53; Stop 07/30/17 at 10:54; Status DC Fentanyl Citrate (fentaNYL INJ) 100 mcg STK-MED ONCE .ROUTE ; Start 07/30/17 at 10:53; Stop 07/30/17 at 10:54; Status DC Miscellaneous Information ALL NURSING DEPARTME... UNSCH PRN .XX SEE LABEL COMMENTS; Start 07/30/17 at 12:45; Stop 07/31/17 at 12:44 A/P Assessment and Plan A/P Sepsis (tachycardia, leukocytosis with mild bandemia, lactic acid level) suspect secondary to UTI Dehydration suspect secondary to above vs dysphagia - continue antibiotics per ID. -continue neb treatment. - diet per ST evaluation. bacteriuria/ UTI/ with bilateral hydronephrosis continue antibiotics Urology f/u appreciated; suprapubic catheter placement by Urology. ID following. Uncontrolled diabetes mellitus with hyperglycemia -continue Levemir - Continue home Glyburide. - ACCU check Q4h, sliding scale insulin, cover as needed. Monitor closely. Hypertension, chronic: Continue home Lisinopril. Clonidine PRN available. Monitor BPs closely. hypokalemia; replaced. CAD: Continue home aspirin. DVT prophylaxis: SCDs/Heparin. DNR status per my discussion with the daughter. Discharge Planning previously d/w the daughter; Ms.Barbara Veliz; [phone]- dc planning to SNF when cleared by urology and ID. Shaniqua Jones MD Jul 30, 2017 14:13
[2017-07-30 16:00] VITALS: BP 131/63; PULSE 75; RESP 19; TEMP 97.1; O2SAT 95
[2017-07-30 20:00] VITALS: BP 125/71; PULSE 89; PULSE 99; RESP 18; TEMP 96.7; O2SAT 92
[2017-07-30] MEDS: LISINOPRIL 10 MG TAB PO SCH (21:07)
[2017-07-30] MEDS: INSULIN DETEMIR 100 UNITS/ML VIAL SQ SCH (23:09)
[2017-07-31] VITALS: BP 136/72; PULSE 72; RESP 18; TEMP 96.3; O2SAT 95
[2017-07-31 08:00] VITALS: BP 133/68; PULSE 69; RESP 19; TEMP 96.8; O2SAT 95
[2017-07-31] MEDS: INSULIN NovoLIN REGULAR SUPPLEMENTAL SCALE SQ SCH ×2 (08:00→12:00)
[2017-07-31] MEDS: METOPROLOL SUCCINATE 50 MG EXTENDED RELEASE TAB PO SCH (08:09)
[2017-07-31] MEDS: HYDROCORTISONE 10 MG TAB PO SCH (08:09)
[2017-07-31] MEDS: glyBURIDE 5 MG TAB PO SCH (08:09)
[2017-07-31] MEDS: LEVOFLOXACIN 500 MG TAB PO SCH (08:10)
[2017-07-31] MEDS: INSULIN ASPART 1,000 UNITS/10 ML VIAL SQ SCH ×2 (08:10→12:08)
[2017-07-31] MEDS: TAMSULOSIN HCL 0.4 MG CAP PO SCH (08:10)
[2017-07-31] MEDS: DOCUSATE SODIUM 50 MG/SENNA 8.6 MG TAB PO SCH (08:10)
[2017-07-31] MEDS: FLUCONAZOLE 200 MG TAB PO SCH (08:10)
[2017-07-31] MEDS: SODIUM CHLORIDE 0.9% FLUSH 10 ML FLUSH IV FLUSH SCH (09:17)
--- NOTE | 2017-07-31 09:50 | HHI.PR ---
Subjective Patient symptoms today Pt resting comfortably. No complaints. Objective Vital Signs Vital Signs Date Time Temp Pulse Resp B/P (MAP) Pulse Ox O2 Delivery O2 Flow Rate FiO2 07/31/17 08:20 Nasal Cannula 2.00 07/31/17 00:00 96.3 72 18 136/72 (93) 95 07/30/17 20:58 92 Nasal Cannula 2.00 07/30/17 20:00 96.7 89 18 125/71 (89) 92 07/30/17 20:00 99 07/30/17 16:00 97.1 75 19 131/63 (85) 95 07/30/17 14:32 Nasal Cannula 2.00 07/30/17 13:40 97.8 87 19 136/65 (88) 94 07/30/17 13:30 65 16 120/60 (80) 95 Nasal Cannula 2 07/30/17 13:15 68 16 125/65 (85) 96 Nasal Cannula 2 07/30/17 13:00 66 16 92/50 (64) 98 Nasal Cannula 2 07/30/17 12:45 65 16 89/55 (66) 98 Nasal Cannula 2 07/30/17 12:43 97.8 66 16 87/54 (65) 99 Nasal Cannula 2 Intake & Output 07/31/17 07/31/17 07:00 19:00 Output Total 1500 ml Balance -1500 ml Output Urine Total 1500 ml Result Diagram: 07/29/17 0531 07/30/17 0605 Objective Remarks Abd: soft,nt,nd 07/29 Abd: soft,nt,nd 07/31 Abd:soft,nt,nd SP tube in position and draining clear urine. Medications and IVs Current Medications Medications (Trade) Dose Ordered Sig/Shanel Route Start Time Stop Time Status Last Admin (Aspirin Chew) 81 mg BID CHEW 07/22/17 21:00 Future Hold 07/27/17 20:21 (Catapres) 0.1 mg DAILY PRN PO 07/22/17 09:30 (Diabeta) 5 mg DAILY PO 07/23/17 09:00 07/31/17 08:09 (Cortef) 5 mg BID PO 07/22/17 21:00 07/31/17 08:09 (Prinivil) 10 mg HS PO 07/22/17 21:00 07/30/17 21:07 (Toprol Xl) 50 mg BID PO 07/22/17 21:00 07/31/17 08:09 (D50w (Vial) Inj) 25 ml UNSCH PRN IV PUSH 07/22/17 09:30 (Glucagon Inj) 1 mg UNSCH PRN OTHER 07/22/17 09:30 (NovoLIN R SUPPLEMENTAL SCALE) 1 ACHS SLIDING SCALE SQ 07/22/17 11:00 07/31/17 08:00 (Duoneb Neb) 1 ampule Q2HR NEB PRN NEB 07/22/17 09:30 (NS Flush) 2 ml UNSCH PRN IV FLUSH 07/22/17 09:30 (NS Flush) 2 ml BID IV FLUSH 07/22/17 21:00 07/31/17 09:17 (Heparin Inj) 5,000 units Q8H SQ 07/22/17 10:00 Future Hold 07/29/17 05:59 (Narcan Inj) 0.4 mg UNSCH PRN IV 07/22/17 09:30 (Janine-Colace) 1 tab BID PO 07/22/17 21:00 07/31/17 08:10 (Milk Of Magnesia Liq) 30 ml Q12H PRN PO 07/22/17 09:30 (Senokot) 17.2 mg Q12H PRN PO 07/22/17 09:30 (Dulcolax Supp) 10 mg DAILY PRN RECTAL 07/22/17 09:30 (Pill Splitter) 1 ea UNSCH PRN OTHER 07/22/17 09:45 (NovoLOG INJ) 2 units TIDAC SQ 07/25/17 17:00 07/31/17 08:10 (Levemir Inj) 15 units HS SQ 07/27/17 21:00 Future hold 07/30/17 23:09 (Flomax) 0.4 mg DAILY PO 07/27/17 13:30 07/31/17 08:10 (Levaquin) 500 mg DAILY PO 07/28/17 12:00 07/31/17 08:10 (Diflucan) 400 mg DAILY PO 07/30/17 09:00 07/31/17 08:10 Lactated Ringer's 1,000 ml @ 30 mls/hr Q24H PRN IV 07/30/17 02:00 08/02/17 01:59 Sodium Chloride 500 ml @ 30 mls/hr [id number] PRN IV 07/30/17 02:00 08/02/17 01:59 (Betadine 5% Antisepsis Kit) 1 applic CONSUMER INSIGHT MANAGER PRN EACH NARE 07/30/17 02:00 08/02/17 01:59 (Chlorhexidine 2% Cloth) 3 pack CONSUMER INSIGHT MANAGER PRN TOPICAL 07/30/17 02:00 08/02/17 01:59 (NovoLIN R INJ) See Protocol Table ... CONSUMER INSIGHT MANAGER PRN SQ 07/30/17 02:00 08/02/17 01:59 Miscellaneous Information ALL NURSING DEPARTME... 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 NPO after MN SP tube insertion in AM. 07/31 Stable s/p SP tube insertion Urine clear. Stable for pt to go to rehab. Will need f/u visit in one month for SP tube change in clinic. Shaheen Armstrong DO Jul 31, 2017 09:50
--- NOTE | 2017-07-31 11:22 | HHI.PR ---
Subjective Remarks in no acute distress. afebrile. denies pain. Objective Vitals Vital Signs Date Time Temp Pulse Resp B/P (MAP) Pulse Ox O2 Delivery O2 Flow Rate FiO2 07/31/17 08:20 Nasal Cannula 2.00 07/31/17 00:00 96.3 72 18 136/72 (93) 95 07/30/17 20:58 92 Nasal Cannula 2.00 07/30/17 20:00 96.7 89 18 125/71 (89) 92 07/30/17 20:00 99 07/30/17 16:00 97.1 75 19 131/63 (85) 95 07/30/17 14:32 Nasal Cannula 2.00 07/30/17 13:40 97.8 87 19 136/65 (88) 94 07/30/17 13:30 65 16 120/60 (80) 95 Nasal Cannula 2 07/30/17 13:15 68 16 125/65 (85) 96 Nasal Cannula 2 07/30/17 13:00 66 16 92/50 (64) 98 Nasal Cannula 2 07/30/17 12:45 65 16 89/55 (66) 98 Nasal Cannula 2 07/30/17 12:43 97.8 66 16 87/54 (65) 99 Nasal Cannula 2 I/O 07/30/17 07/30/17 07/30/17 07/31/17 07/31/17 07/31/17 07:00 15:00 23:00 07:00 15:00 23:00 Intake Total 457 ml 900 ml 1350 ml Output Total 800 ml 1000 ml 1500 ml Balance 457 ml 100 ml 350 ml -1500 ml Intake Oral 0 ml 750 ml IV Total 457 ml 900 ml 600 ml Output Urine Total 800 ml 1000 ml 1500 ml # Voids 2 # Bowel Movements 2 0 Result Diagram: 07/29/17 0531 07/30/17 0605 Imaging Last Impressions Chest X-Ray 07/26/17 0000 Signed Impressions: Service Date/Time: Wednesday, July 26, 2017 01:54 - CONCLUSION: 1. Developing interstitial prominence suggesting some degree of vascular congestion or volume overload. 2. Stable biapical emphysematous changes, right greater than left. Nash Armijo MD Abdomen/Pelvis CT 07/26/17 0000 Signed Impressions: Service Date/Time: Wednesday, July 26, 2017 21:18 - CONCLUSION: 1. There are cysts of the left kidney. The left upper pole cyst is slightly complex but stable back to 2010. No evidence of a solid/concerning renal lesion. 2. Markedly enlarged prostate with wall thickening and probable trabeculation of the urinary bladder and also probable chronic reflux and/or obstruction of both ureters. There is moderate to severe bilateral hydronephrosis/hydroureter, worse since 2011. No stones are demonstrated. 3. Cholelithiasis without evidence of cholecystitis or biliary obstruction. 4. Large stool in the rectum. 5. Large umbilical hernia containing large bowel. No obstruction or evidence of incarceration. 6. Small effusions and mild atelectasis seen of the visualized lung bases. Chin Noland MD Renal Ultrasound 07/25/17 0000 Signed Impressions: Service Date/Time: Tuesday, July 25, 2017 14:17 - CONCLUSION: Abnormal renal ultrasound. Scan with contrast is suggested if the patient can tolerate such. Shivam Marc MD FACR Objective Remarks GENERAL: elderly male, in no apparent distress. CARDIOVASCULAR: Regular rate and regular rhythm without murmurs, gallops, or rubs. RESPIRATORY: Clear to auscultation. Breath sounds equal bilaterally. No wheezes , rales, or rhonchi. GASTROINTESTINAL: Abdomen soft, non-tender, nondistended. Normal, active bowel sounds- suprapubic cath. in place. MUSCULOSKELETAL: Extremities without clubbing, cyanosis, or edema. NEURO: awake and alert Medications and IVs Current Medications Sodium Chloride 1,000 ml @ 999 mls/hr BOLUS ONCE IV Last administered on 07/22 07:45; Start 07/22/17 at 07:30; Stop 07/22/17 at 08:30; Status DC Sodium Chloride 1,000 ml @ 999 mls/hr BOLUS ONCE IV Last administered on 07/22 07:45; Start 07/22/17 at 07:30; Stop 07/22/17 at 08:30; Status DC Insulin Human Regular (NovoLIN R INJ) 7 units ONCE ONCE IV PUSH Last administered on 07/22/17 07:46; Start 07/22/17 at 07:30; Stop 07/22/17 at 07:31 ; Status DC Ceftriaxone Sodium 1000 mg/ Sodium Chloride 100 ml @ 200 mls/hr ONCE ONCE IV Last administered on 07/22/17 09:21; Start 07/22/17 at 09:00; Stop 07/22/17 at 09:29; Status DC Azithromycin (Zithromax) 500 mg ONCE ONCE PO Last administered on 07/22/17 09 :21; Start 07/22/17 at 09:00; Stop 07/22/17 at 09:01; Status DC Aspirin (Aspirin Chew) 81 mg BID CHEW Last administered on 07/27/17 20:21; Start 07/22/17 at 21:00; Status Future Hold Clonidine (Catapres) 0.1 mg DAILY PRN PO INCREASE IN BLOOD PRESSURE; Start 10/26 at 09:30 Glyburide (Diabeta) 5 mg DAILY PO Last administered on 07/31/17 08:09; Start 07/23/17 at 09:00 Hydrocortisone (Cortef) 5 mg BID PO Last administered on 07/31/17 08:09; Start 07/22/17 at 21:00 Lisinopril (Prinivil) 10 mg HS PO Last administered on 07/30/17 21:07; Start 07/22/17 at 21:00 Metoprolol Succinate (Toprol Xl) 50 mg BID PO Last administered on 07/31/17 08 :09; Start 07/22/17 at 21:00 Dextrose (D50w (Vial) Inj) 25 ml UNSCH PRN IV PUSH HYPOGLYCEMIA-SEE COMMENTS; Start 07/22/17 at 09:30 Glucagon (Glucagon Inj) 1 mg UNSCH PRN OTHER HYPOGLYCEMIA-SEE COMMENTS; Start 07/22/17 at 09:30 Insulin Human Regular (NovoLIN R SUPPLEMENTAL SCALE) 1 ACHS SLIDING SCALE SQ Last administered on 07/31/17 08:00; Start 07/22/17 at 11:00 Ceftriaxone Sodium 1000 mg/ Sodium Chloride 100 ml @ 200 mls/hr Q24H IV Last administered on 07/28/17 09:29; Start 07/23/17 at 09:00; Stop 07/28/17 at 10:38 ; Status DC Azithromycin 500 mg/Sodium Chloride 250 ml @ 250 mls/hr Q24H IV Last administered on 07/24/17 10:19; Start 07/23/17 at 10:00; Stop 07/25/17 at 12:33 ; Status DC Albuterol/ Ipratropium (Duoneb Neb) 1 ampule QID NEB NEB Last administered on 07/26/17 08:00; Start 07/22/17 at 12:00; Stop 07/26/17 at 11:59; Status DC Albuterol/ Ipratropium (Duoneb Neb) 1 ampule Q2HR NEB PRN NEB short of breath; Start 07/22/17 at 09:30 Sodium Chloride 1,000 ml @ 70 mls/hr [id number] IV Last administered on 21:04; Start 07/22/17 at 09:29; Stop 07/26/17 at 03:17; Status DC Sodium Chloride (NS Flush) 2 ml UNSCH PRN IV FLUSH FLUSH AFTER USING IV ACCESS ; Start 07/22/17 at 09:30 Sodium Chloride (NS Flush) 2 ml BID IV FLUSH Last administered on 07/31/17 09: 17; Start 07/22/17 at 21:00 Heparin Sodium (Porcine) (Heparin Inj) 5,000 units Q8H SQ Last administered on 07/29/17 05:59; Start 07/22/17 at 10:00; Status Future Hold Naloxone HCl (Narcan Inj) 0.4 mg UNSCH PRN IV SEE LABEL COMMENTS; Start at 09:30 Senna/Docusate Sodium (Janine-Colace) 1 tab BID PO Last administered on 08:10; Start 07/22/17 at 21:00 Magnesium Hydroxide (Milk Of Magnesia Liq) 30 ml Q12H PRN PO MILD - MODERATE CONSTIPATION; Start 07/22/17 at 09:30 Sennosides (Senokot) 17.2 mg Q12H PRN PO MODERATE - SEVERE CONSTIPATION; Start 07/22/17 at 09:30 Bisacodyl (Dulcolax Supp) 10 mg DAILY PRN RECTAL SEVERE CONSITIPATION; Start at 09:30 Miscellaneous (Pill Splitter) 1 ea UNSCH PRN OTHER SEE LABEL COMMENTS; Start at 09:45 Potassium Chloride (KCl) 40 meq ONCE ONCE PO Last administered on 07/23/17 18 :38; Start 07/23/17 at 13:00; Stop 07/23/17 at 13:01; Status DC Pharmacy Profile Note 0 ml @ 0 mls/hr UNSCH OTHER ; Start 07/23/17 at 17:15; Stop 07/25/17 at 12:33; Status DC Vancomycin HCl 1250 mg/Sodium Chloride 262.5 ml @ 250 mls/hr Q12H IV Last administered on 07/25/17 07:21; Start 07/23/17 at 18:00; Stop 07/25/17 at 12:33 ; Status DC Miscellaneous Information SPECIFIC LAB TO BE DRAWN:VANCO TROUGH DATE TO BE DR... ONCE ONCE .XX Last administered on 07/25/17 05:45; Start 07/25/17 at 05 :45; Stop 07/25/17 at 05:46; Status DC Potassium Chloride (KCl) 40 meq ONCE ONCE PO Last administered on 07/24/17 18 :30; Start 07/24/17 at 18:15; Stop 07/24/17 at 18:21; Status DC Miscellaneous Information SPECIFIC LAB TO BE .. ONCE ONCE .XX ; Start 07/26 at 05:45; Stop 07/26/17 at 05:46; Status DC Insulin Detemir (Levemir Inj) 5 units HS SQ Last administered on 07/25/17 21: 04; Start 07/25/17 at 21:00; Stop 07/26/17 at 10:24; Status DC Insulin Aspart (NovoLOG INJ) 2 units TIDAC SQ Last administered on 07/31/17 08 :10; Start 07/25/17 at 17:00 Lorazepam (Ativan Inj) 0.5 mg ONCE ONCE IV PUSH Last administered on 00:48; Start 07/26/17 at 00:00; Stop 07/26/17 at 00:01; Status DC Ipratropium [place] (Atrovent Neb) 0.5 mg ONCE ONCE NEB Last administered on 01:30; Start 07/26/17 at 00:00; Stop 07/26/17 at 00:01; Status DC Metoprolol Tartrate (Lopressor) 25 mg ONCE ONCE PO Last administered on 02:35; Start 07/26/17 at 02:00; Stop 07/26/17 at 02:01; Status DC Furosemide (Lasix Inj) 20 mg ONCE ONCE IV PUSH Last administered on 07/26/17 03:44; Start 07/26/17 at 03:15; Stop 07/26/17 at 03:27; Status DC Insulin Detemir (Levemir Inj) 10 units HS SQ Last administered on 07/26/17 20: 16; Start 07/26/17 at 21:00; Stop 07/27/17 at 09:36; Status DC Iohexol (Omnipaque 350 Inj) 85 ml STK-MED ONCE IVCONTRAST Last administered on 07/26/17 21:34; Start 07/26/17 at 21:34; Stop 07/26/17 at 21:35; Status DC Insulin Detemir (Levemir Inj) 15 units HS SQ Last administered on 07/30/17 23: 09; Start 07/27/17 at 21:00; Status Future hold Potassium Chloride (KCl) 40 meq ONCE ONCE PO Last administered on 07/27/17 11 :50; Start 07/27/17 at 09:45; Stop 07/27/17 at 09:46; Status DC Tamsulosin HCl (Flomax) 0.4 mg DAILY PO Last administered on 07/31/17 08:10; Start 07/27/17 at 13:30 Fluconazole/ Sodium Chloride 100 ml @ 100 mls/hr Q24H IV Last administered on 07/29/17 12:23; Start 07/28/17 at 12:00; Stop 07/29/17 at 16:21; Status DC Levofloxacin (Levaquin) 500 mg DAILY PO Last administered on 07/31/17 08:10; Start 07/28/17 at 12:00 Potassium Chloride (KCl) 40 meq ONCE ONCE PO Last administered on 07/29/17 12 :31; Start 07/29/17 at 12:30; Stop 07/29/17 at 12:31; Status DC Potassium Chloride (KCl) 40 meq ONCE ONCE PO Last administered on 07/29/17 15 :35; Start 07/29/17 at 16:00; Stop 07/29/17 at 16:01; Status DC Sodium Chloride 1,000 ml @ 60 mls/hr [id number] ONCE IV Last administered on 07/29 21:43; Start 07/29/17 at 23:00; Stop 07/30/17 at 15:39; Status DC Fluconazole (Diflucan) 200 mg ONCE ONCE PO Last administered on 07/29/17t 17: 37; Start 07/29/17 at 17:30; Stop 07/29/17 at 17:31; Status DC Fluconazole (Diflucan) 400 mg DAILY PO Last administered on 07/31/17t 08:10; Start 07/30/17 at 09:00 Lactated Ringer's 1,000 ml @ 30 mls/hr Q24H PRN IV SEE LABEL COMMENTS; Start at 02:00; Stop 08/02/17 at 01:59 Sodium Chloride 500 ml @ 30 mls/hr [id number] PRN IV SEE LABEL COMMENTS; Start at 02:00; Stop 08/02/17 at 01:59 Povidone Iodine (Betadine 5% Antisepsis Kit) 1 applic SAMPLE BOOK MAKER PRN EACH NARE SEE LABEL COMMENTS; Start 07/30/17 at 02:00; Stop 08/02/17 at 01:59 Chlorhexidine Gluconate (Chlorhexidine 2% Cloth) 3 pack SAMPLE BOOK MAKER PRN TOPICAL SEE LABEL COMMENTS; Start 07/30/17 at 02:00; Stop 08/02/17 at 01:59 Insulin Human Regular (NovoLIN R INJ) See Protocol Table ... SAMPLE BOOK MAKER PRN SQ SEE PROTOCOL TABLE; Start 07/30/17 at 02:00; Stop 08/02/17 at 01:59 Propofol (Diprivan 200 Mg/20 ml Inj) 200 mg STK-MED ONCE .ROUTE ; Start at 10:53; Stop 07/30/17 at 10:54; Status DC Fentanyl Citrate (fentaNYL INJ) 100 mcg STK-MED ONCE .ROUTE ; Start 07/30/17 at 10:53; Stop 07/30/17 at 10:54; Status DC Miscellaneous Information ALL NURSING DEPARTME... UNSCH PRN .XX SEE LABEL COMMENTS; Start 07/30/17 at 12:45; Stop 07/31/17 at 12:44 A/P Assessment and Plan A/P Sepsis (tachycardia, leukocytosis with mild bandemia, lactic acid level) suspect secondary to UTI Dehydration suspect secondary to above vs dysphagia - continue antibiotics per ID. - diet per ST evaluation; mechanical soft bacteriuria/ UTI/ with bilateral hydronephrosis treated with antibiotics s/p suprapubic cath placement; cleared by urology for discharge with outpatient f/u. UA in a few days. Uncontrolled diabetes mellitus with hyperglycemia -continue Levemir - Continue home Glyburide. - ACCU check. Hypertension, chronic: Continue home Lisinopril. Clonidine PRN available. Monitor BPs closely. hypokalemia; replaced. CAD: Continue home aspirin. DVT prophylaxis: SCDs/Heparin. DNR status per my discussion with the daughter. Discharge Planning dc to SNF today if ok with ID. see med list. f/u; pcp, urology. d/w the patient and RN. previously d/w the daughter. d/w . Shaniqua Jones MD Jul 31, 2017 11:22
[2017-07-31] MEDS ORDERED: TAMS5CAP PO (11:27)
[2017-07-31] MEDS ORDERED: LEVEMIR SQ (11:27)
[2017-07-31] MEDS ORDERED: NOVORP2 SQ (11:27)
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
[2017-07-31] MEDS ORDERED: DIFL200T PO (11:46)
== END 2017-07-31 14:43 | DRG 872 ==
LOC: NEPC 07:07 → INTOOBSV 09:26 → NEDA 09:26 → N07A 13:30 → OBSVTOIN 07-23 12:39
PROVIDERS: ADMIT Internal Medicine; ATTEND Internal Medicine
PROC: 0TJB8ZZ Inspection of Bladder, Via Natural or Artificial Opening Endoscopic (ICD-10-PCS; 2017-07-30)
PROC: 0T9B30Z Drainage of Bladder with Drainage Device, Percutaneous Approach (ICD-10-PCS; principal; 2017-07-30 11:29)
DX: A41.9 Sepsis, unspecified organism (principal); E11.65 Type 2 diabetes mellitus with hyperglycemia; N13.30 Unspecified hydronephrosis; R13.10 Dysphagia, unspecified; N13.8 Other obstructive and reflux uropathy; N30.00 Acute cystitis without hematuria; N28.1 Cyst of kidney, acquired; E86.0 Dehydration; E78.5 Hyperlipidemia, unspecified; E87.6 Hypokalemia; I25.10 Atherosclerotic heart disease of native coronary artery without angina pectoris; Z66 Do not resuscitate; M54.30 Sciatica, unspecified side; I10 Essential (primary) hypertension; N40.1 Benign prostatic hyperplasia with lower urinary tract symptoms; R33.9 Retention of urine, unspecified; Z79.82 Long term (current) use of aspirin; Z79.84 Long term (current) use of oral hypoglycemic drugs; Z87.440 Personal history of urinary (tract) infections
CPT/HCPCS: 71010; 74178; 76775; 80048; 80053; 80202; 81001; 82948; 83036; 83605; 84132; 85025; 86403; 87040; 87077; 87086; 87106; 87186; 87205; 93005; 93306; 94640; 94664; 96361; 96372; 96374; 96375; G0378; G8987-GP; G8988-GP; J0456; J0690; J0696; J1100; J1450; J1644; J1815; J1940; J2060; J2370; J2405; J3010; J3370; J7030; J7050; J7644; P9612; Q9967

== ENCOUNTER 2017-08-21 06:33 | Inpatient (IN) | payer MEDICARE, BC ==
[2017-08-21] VITALS (8 sets, daily range): BP systolic 122–162; BP diastolic 58–77; PULSE 80–96; RESP 16–20; TEMP 97.2–99.2; O2SAT 96–98
[~2017-08-21] VITALS: Ht 185.4 cm; Wt 78.5 kg
[~2017-08-21 06:33] MED LIST changes: -AZIT250T3 PO; -CEFU1TAB20 PO; -CLON0.1T PO; +DIFL200T PO; +LEVEMIR SQ; -METF500T4 PO; -MIRA25TA PO; +NOVORP2 SQ; +TAMS5CAP PO
[2017-08-21] MEDS ORDERED: LEVO.1 PO (07:14)
[2017-08-21] MEDS ORDERED: LEXA5TAB PO (07:14)
[2017-08-21] MEDS ORDERED: ARIC5TAB2 PO (07:14)
[2017-08-21] MEDS ORDERED: PIPERACIL-TAZO 4.5 GM PREMIX 100 ML IV STA (07:37)
[2017-08-21] MEDS ORDERED: VANCOMYCIN INJ 1,000 MG in SODIUM CHLOR 0.9% 250 ML INJ 250 ML IV STA (07:37)
[2017-08-21] MEDS ORDERED: SODIUM CHLOR 0.9% 1000 ML INJ 1,000 ML IV ONE ×2 (07:45→09:30)
--- NOTE | 2017-08-21 08:11 | RADRPT ---
EXAM DATE/TIME: 08/21/2017 08:00 [facility] COMPARISON: CHEST SINGLE AP, July 26, 2017, 1:54. INDICATIONS : Fever and shortness of breath. MEDICAL HISTORY : Hypertension. Benign prostatic hyperplasia (BPH). Diabetes mellitus type 2. SURGICAL HISTORY : Perforated stomach ENCOUNTER: Initial ACUITY: 1 day PAIN SCORE: Non-responsive. LOCATION: Bilateral chest FINDINGS: A single view of the chest demonstrates the lungs to be symmetrically aerated without evidence of mas s, infiltrate or effusion. A bulla is seen involving the right apex. There is chronic elevation of th e right hemidiaphragm. Linear bibasilar atelectasis. No infiltrates. The cardiomediastinal contours are unremarkable. Osseous structures are intact. CONCLUSION: 1. No infiltrates. 2. Mild linear bibasilar atelectasis. Nathaniel Holman Jr., MD on August 21, 2017 at 8:09 Board Certified Radiologist. This report was verified electronically.
[2017-08-21 08:21] LABS: AUTOMATED NEUTROPHIL # 19.6 TH/MM3 (1.8-7.7); BASOPHIL % 0.1 % (0.0-2.0); EOSINOPHIL # 0.1 TH/MM3 (0-0.4); EOSINOPHIL % 0.3 % (0.0-4.0); HEMATOCRIT 38.5 % (39.0-51.0); HEMO FLAGS DIFF FINAL; LYMPH % 7.3 % (9.0-44.0); LYMPHOCYTE # 1.7 TH/MM3 (1.0-4.8); MEAN CELL VOLUME 86.4 FL (80.0-100.0); MEAN CORPUSCULAR HGB CONC 32.4 % (32.0-36.0); NEUT % 86.3 % (16.0-70.0); PLATELET COUNT 438 TH/MM3 (150-450); RED BLOOD COUNT 4.45 MIL/MM3 (4.50-5.90); RED CELL DISTRIBUTION WIDTH 15.2 % (11.6-17.2); WHITE BLOOD COUNT 22.8 TH/MM3 (4.0-11.0)
--- NOTE | 2017-08-21 08:38 | PD ---
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 Patient is frail and all he is able to tell me is that there is some problem with his catheter. He denies any pain. However my understanding is that the suprapubic catheter was changed couple times during the past one week by a nurse. And in past 24-48 hours patient has barely May 20 cc of urine. He wears depends and there is some blood-tinged urine on his depends. He had a blood work done yesterday and the report of that is included in the paperwork. White blood cell count was 22,000 with left shift. Patient was started on Flagyl by mouth. His rectal temperature here was 99.5. Rest of the vital signs were within acceptable limits. Patient is unable to give detailed history. From the paperwork my understanding is that the suprapubic catheter is secondary to obstructive uropathy and hydronephrosis. The blood test result that was included in the paperwork had a BUN creatinine that was normal limits. PFSH Past Medical History Narrative Medical List of his past medical, surgical, social and family history is reviewed from the nursing note. Hx Anticoagulant Therapy: Yes (162 ASA DAILY) Anemia: Yes Depression: Yes Cancer: No Cardiovascular Problems: Yes (HTN) High Cholesterol: Yes Dementia: Yes Diabetes: Yes Patient Takes Glucophage: Yes Diminished Hearing: No Endocrine: Yes Genitourinary: Yes (BPH, OBSTRUCTIVE AND REFLUX UROPATHY ) Hiatal Hernia: Yes Hypertension: Yes Immune Disorder: No Implanted Vascular Access Dvce: No Medical other: Yes (GENERALIZED WEAKNESS, DYSPAHGIA) Musculoskeletal: Yes (SCIATICA) Psychiatric: No Respiratory: No Immunizations Current: No Ulcer: Yes (H.PYLORI) Past Surgical History Abdominal Surgery: Yes (PERF STOMACH) Eye Surgery: Yes (CATARACTS) Pacemaker: No Tonsillectomy: Yes Social History Alcohol Use: No Tobacco Use: No Substance Use: No Allergies-Medications (Allergen,Severity, Reaction): Coded Allergies: hydrocodone (Verified Allergy, Severe, HIVES, 08/21/17) Comments List of his allergies reviewed from the nursing note. Reported Meds & Prescriptions Reported Meds & Active Scripts Active Novolin R Inj (Insulin Human Regular) 1,000 Unit/10 Ml Vial 0 Units SQ SERVICE REPRESENTATIVE PRN 7 Days Levemir Inj (Insulin Detemir) 1,000 unit/ 10 ML Vial 15 Units SQ HS 30 Days Do not mix with any other Insulin. Flomax (Tamsulosin HCl) 0.4 Mg Cap 0.4 Mg PO DAILY 30 Days Reported Synthroid (Levothyroxine Sodium) 100 Mcg Tab 100 Mcg PO DAILY Lexapro (Escitalopram Oxalate) 5 Mg Tab 5 Mg PO DAILY Aricept (Donepezil HCl) 5 Mg Tablet 5 Mg PO HS Glyburide 5 Mg Tab 5 Mg PO DAILY Take with meals at the same time each day Preservision Areds (Multiple Vitamins W/ Minerals) 1 Cap Cap BID Aspirin 81 Mg Chew 81 Mg CHEW BID Lisinopril 10 Mg Tab 10 Mg PO DAILY Metoprolol Succinate ER 24 HR (Metoprolol Succinate) 50 Mg Tab 50 Mg PO BID Acarbose 50 Mg Tab 50 Mg PO AC DINNER Hydrocortisone 5 Mg Tab 5 Mg PO BID Take with food to decrease GI upset Narrative Medication List of his home medication reviewed from the nursing note. Review of Systems Except as stated in HPI: all other systems reviewed are Neg General / Constitutional: Positive: Fever Genitourinary: Positive: Decreased Urinary Output, Other (suprapubic Barton catheter not working) Physical Exam Narrative GENERAL: Awake, alert, elderly and frail, moderate distress SKIN: Focused skin assessment warm/dry. Suprapubic Barton catheter, the skin around the stoma is slightly erythematous. The catheter can be felt in the subcutaneous tissue upon palpation extending superiorly above the umbilicus HEAD: Atraumatic. Normocephalic. EYES: Pupils equal and round. No scleral icterus. No injection or drainage. ENT: No nasal bleeding or discharge. Dry mucous membrane NECK: Trachea midline. No JVD. CARDIOVASCULAR: Regular rate and rhythm. No murmur appreciated. RESPIRATORY: No accessory muscle use. Clear to auscultation. Breath sounds equal bilaterally. GASTROINTESTINAL: Abdomen soft, non-tender, nondistended. Hepatic and splenic margins not palpable. MUSCULOSKELETAL: No obvious deformities. No clubbing. No cyanosis. No edema. NEUROLOGICAL: Awake and alert. No obvious cranial nerve deficits. Motor grossly within normal limits. Normal speech. PSYCHIATRIC: Appropriate mood and affect; insight and judgment normal. Data Data Last Documented VS Vital Signs Date Time Temp Pulse Resp B/P (MAP) Pulse Ox O2 Delivery O2 Flow Rate FiO2 08/21/17 08:32 98.6 87 17 128/66 (86) 97 Nasal Cannula 2.00 Orders Orders Complete Blood Count With Diff (08/21/17 07:37) Comprehensive Metabolic Panel (08/21/17 07:37) Lactic Acid Sepsis Protocol (08/21/17 07:37) Urinalysis - C+S If Indicated (08/21/17 07:37) Blood Culture (08/21/17 07:37) Chest, Single Ap (08/21/17 07:37) Blood Glucose (08/21/17 07:37) Ecg Monitoring (08/21/17 07:37) Iv Access Insert/Monitor (08/21/17 07:37) Oximetry (08/21/17 07:37) Oxygen Administration (08/21/17 07:37) Ct Abd/Pel W/O Iv Contrast (08/21/17 07:37) Piperacil-Tazo 4.5 Gm Premix (Zosyn 4.5 (08/21/17 07:37) Vancomycin Inj (Vancomycin Inj) (08/21/17 07:37) Sodium Chlor 0.9% 1000 Ml Inj (Ns 1000 M (08/21/17 07:45) Sodium Chlor 0.9% 1000 Ml Inj (Ns 1000 M (08/21/17 09:30) Oxygen Administration (08/21/17 09:33) Admit Order (Ed Use Only) (08/21/17 10:02) Admit To Inpatient (08/21/17 ) Vital Signs (Adult) Q4H (08/21/17 09:57) Activity Oob With Assistance (08/21/17 09:57) Diet Heart Healthy (08/21/17 Breakfast) Sodium Chlor 0.9% 1000 Ml Inj (Ns 1000 M (08/21/17 09:57) Sodium Chloride 0.9% Flush (Ns Flush) (08/21/17 10:00) Sodium Chloride 0.9% Flush (Ns Flush) (08/21/17 21:00) Acetaminophen (Tylenol) (08/21/17 10:00) Ondansetron Inj (Zofran Inj) (08/21/17 10:00) Basic Metabolic Panel (Bmp) (08/22/17 06:00) Complete Blood Count With Diff (08/22/17 06:00) Resp Oxygen Tim C Titrat 1-4 L (08/21/17 ) Pt Request For Service (08/21/17 09:57) Case Management Consult (08/21/17 09:57) Scd Bilateral/Knee High RICHELLE.BID (08/21/17 09:57) Colin Bilateral/Knee High RICHELLE.QSHIFT (08/21/17 09:57) Pharmacologic Contraindication (08/21/17 09:57) Naloxone Inj (Narcan Inj) (08/21/17 10:00) Docusate Sodium-Senna (Janine-Colace) (08/21/17 21:00) Magnesium Hydroxide Liq (Milk Of Magnesi (08/21/17 10:00) Sennosides (Senokot) (08/21/17 10:00) Bisacodyl Supp (Dulcolax Supp) (08/21/17 10:00) Lactulose Liq (Lactulose Liq) (08/21/17 10:00) Inpatient Certification (08/21/17 ) Labs Laboratory Tests Test 08/21/17 07:51 White Blood Count 22.8 TH/MM3 Red Blood Count 4.45 MIL/MM3 Hemoglobin 12.5 GM/DL Hematocrit 38.5 % Mean Corpuscular Volume 86.4 FL Mean Corpuscular Hemoglobin 28.0 PG Mean Corpuscular Hemoglobin Concent 32.4 % Red Cell Distribution Width 15.2 % Platelet Count 438 TH/MM3 Mean Platelet Volume 7.5 FL Neutrophils (%) (Auto) 86.3 % Lymphocytes (%) (Auto) 7.3 % Monocytes (%) (Auto) 6.0 % Eosinophils (%) (Auto) 0.3 % Basophils (%) (Auto) 0.1 % Neutrophils # (Auto) 19.6 TH/MM3 Lymphocytes # (Auto) 1.7 TH/MM3 Monocytes # (Auto) 1.4 TH/MM3 Eosinophils # (Auto) 0.1 TH/MM3 Basophils # (Auto) 0.0 TH/MM3 CBC Comment DIFF FINAL Differential Comment Blood Urea Nitrogen 26 MG/DL Creatinine 0.66 MG/DL Random Glucose 117 MG/DL Total Protein 6.5 GM/DL Albumin 1.6 GM/DL Calcium Level 8.0 MG/DL Alkaline Phosphatase 88 U/L Aspartate Amino Transf (AST/SGOT) 27 U/L Alanine Aminotransferase (ALT/SGPT) 15 U/L Total Bilirubin 0.5 MG/DL Sodium Level 136 MEQ/L Potassium Level 4.5 MEQ/L Chloride Level 101 MEQ/L Carbon Dioxide Level 28.7 MEQ/L Anion Gap 6 MEQ/L Estimat Glomerular Filtration Rate 114 ML/MIN Lactic Acid Level 1.0 mmol/L MDM Medical Decision Making Medical Screen Exam Complete: Yes Emergency Medical Condition: Yes Medical Record Reviewed: Yes Differential Diagnosis Sepsis, false tracking of the Barton catheter, UTI, renal failure, dehydration Narrative Course 8:37 AM patient was started on sepsis protocol and 1 L of fluid bolus ordered. CBC is back and WBC is 22,000. Awaiting for the chemistry. Chest x-rays within normal limit. I've ordered a CT scan of abdomen and pelvis to check for the position of the suprapubic catheter. In my opinion I strongly feel given the physical exam that the catheter is in a false track in the subcutaneous tissue. 9:28 AM the suprapubic catheter is in the bladder as per the CAT scan. The radiologist also notices a significantly thickened bladder wall with possible mural thrombus. There was an incidental finding of a small pneumothorax. I put a call out for the urologist. Patient will require admission. The pneumothorax was not visible on the chest x-ray. This could be observed by the admitting team with a repeat chest x-ray report. I will put him on a nonrebreather. There is also an incidental finding of a fusiform abdominal aortic aneurysm that is 4.1 x 2.9 cm. Awaiting for the hospitalist and the urologist to call back. Critical Care Narrative Aggregate critical care time was 45 minutes. Time to perform other separately billable procedures was not included in the critical care time. My time did not include minutes spent treating any other patients simultaneously or on activities that did not directly contribute to the patient's treatment. The services I provided to this patient were to treat and/or prevent clinically significant deterioration that could result in: dehydration, sepsis, sepsis protocol I provided critical care services requiring my management, as noted below: Chart data review, documentation time, medication orders and management, vital sign assessments/reviewing monitor data, ordering and reviewing lab tests, ordering and interpreting/reviewing x-rays and diagnostic studies, care of the patient and discussion of the patient with the admitting physicians. Procedures EKG Prior to Arrival: No Diagnosis Primary Impression: Sepsis Qualified Codes: A41.9 - Sepsis, unspecified organism Additional Impressions: Dehydration UTI (urinary tract infection) Qualified Codes: N30.00 - Acute cystitis without hematuria Pneumothorax Qualified Codes: J93.11 - Primary spontaneous pneumothorax Aortic aneurysm Qualified Codes: I71.4 - Abdominal aortic aneurysm, without rupture Admitting Information Admitting Physician Requests: Elham Moore MD Aug 21, 2017 08:38
[2017-08-21 08:43] LABS: ALKALINE PHOSPHATASE 88 U/L (45-117); TOTAL BILIRUBIN ADULT 0.5 MG/DL (0.2-1.0)
[2017-08-21 08:47] LABS: ALT (GPT) 15 U/L (12-78); ANION GAP 6 MEQ/L (5-15); AST (GOT) 27 U/L (15-37); BICARBONATE 28.7 MEQ/L (21.0-32.0); BLOOD UREA NITROGEN 26 MG/DL (7-18); CHLORIDE 101 MEQ/L (98-107); GLOMERULAR FILTRATION RATE 114 ML/MIN (>89); POTASSIUM 4.5 MEQ/L (3.5-5.1); SODIUM (NA) 136 MEQ/L (136-145)
--- NOTE | 2017-08-21 09:03 | RADRPT ---
EXAM DATE/TIME: 08/21/2017 08:18 [facility] COMPARISON: CT ABDOMEN & PELVIS W & W/O CONTRAST, July 26, 2017, 21:18. CT ABDOMEN & PELVIS W/O CONTRAST, M ay 2010, 16:02. INDICATIONS : Lower pelvic pain. Removed catheter and unable to get it back in. ORAL CONTRAST: No oral contrast ingested. RADIATION DOSE: 11.85 CTDIvol (mGy) MEDICAL HISTORY : Hypertension. Diabetes mellitus type 2. SURGICAL HISTORY : None. ENCOUNTER: Initial ACUITY: 1 day PAIN SCALE: 5/10 LOCATION: cranial TECHNIQUE: Volumetric scanning of the abdomen and pelvis was performed. Using automated exposure control and ad justment of the mA and/or kV according to patient size, radiation dose was kept as low as reasonably achievable to obtain optimal diagnostic quality images. DICOM format image data is available electro nically for review and comparison. FINDINGS: LOWER LUNGS: Tiny bilateral pleural effusions are smaller from the prior exam. The associated atelectasis is also reduced. A 6 mm nodule seen within the right lung base. This area was obscured by atelectasis on the prior study and therefore I cannot attest any change. Nodular pleural thickening is seen involving th e inferior left major fissure. This area was obscured by fluid on the prior study. Coronary artery at herosclerotic calcifications are noted. A small left anterior pneumothorax is new. LIVER: Homogeneous density without lesion. There is no dilation of the biliary tree. Multiple small calcifi ed gallstones layering within an otherwise normal-appearing gallbladder. SPLEEN: Normal size without lesion. PANCREAS: Within normal limits. KIDNEYS: Bilateral hydronephrosis and hydroureter. Left-sided cortical cysts. Within the upper pole on the lef t there is a complex cyst that measures 5 cm in size with thin rim calcifications as well as thin sep sincere calcifications. No perinephric stranding. ADRENAL GLANDS: Within normal limits. VASCULAR: Diffuse calcified plaque involving the abdominal aorta. There is a 4.1 x 2.9 cm eccentric fusiform an eurysm involving the infrarenal aorta. This is stable. BOWEL/MESENTERY: The stomach, small bowel, and colon demonstrate no acute abnormality. There is no free intraperitone al air or fluid. ABDOMINAL WALL: There is an umbilical hernia seen containing loops of large bowel. This is broad-based in nature. No obstruction or incarceration appreciated. RETROPERITONEUM: There is no lymphadenopathy. BLADDER: There is a suprapubic catheter with the balloon within the urinary bladder. There is either considera ble wall thickening or perhaps mural thrombus involving the urinary bladder wall. A suprapubic Barton is a new finding from the prior study. REPRODUCTIVE: The prostate gland is grossly enlarged measuring 9.5 x 9.2 cm. There are peripheral calcifications as sociated with this INGUINAL: There is no lymphadenopathy or hernia. MUSCULOSKELETAL: Within normal limits for patient age. CONCLUSION: 1. Interval placement of a suprapubic catheter which is within the urinary bladder. In the short inte rval from the prior study there has been either a significant wall thickening of the urinary bladder or development of mural thrombus. 2. Grossly a large prostate gland. 3. Bilateral hydronephrosis and hydroureter. This is similar to the prior study. 4. 5 cm complex cystic mass involving the upper pole the left kidney. This is stable. 5. Tiny bilateral pleural effusions which are smaller from the prior study. 6. Small anterior pneumothorax involving the left chest. 7. 6 mm pulmonary nodule multiple right lung base with nodular pleural thickening involving the major fissure on the left. Consideration could be made to short-term CT to document stability. 8. 4.1 x 2.9 cm infrarenal above aortic aneurysm. 9. Umbilical hernia containing colon. 10. Cholelithiasis. Nathaniel Holman Jr., MD on August 21, 2017 at 8:50 Board Certified Radiologist. This report was verified electronically.
[2017-08-21] MEDS ORDERED: SENNOSIDES 8.6 MG TAB PO PRN (10:00)
[2017-08-21] MEDS ORDERED: LACTULOSE SYRUP 20 GM/30 ML CUP PO PRN (10:00)
[2017-08-21] MEDS ORDERED: ACETAMINOPHEN 325 MG TAB PO PRN (10:00)
[2017-08-21] MEDS ORDERED: NALOXONE HCL 0.4 MG/ML AMP IV PUSH PRN (10:00)
[2017-08-21] MEDS ORDERED: SODIUM CHLORIDE 0.9% FLUSH 10 ML FLUSH IV FLUSH PRN (10:00)
[2017-08-21] MEDS ORDERED: ONDANSETRON HCL 4 MG/2 ML VIAL IVP PRN (10:00)
[2017-08-21] MEDS ORDERED: BISACODYL 10 MG SUPP RECTAL PRN (10:00)
[2017-08-21] MEDS ORDERED: MAGNESIUM HYDROXIDE SUSP 30 ML CUP PO PRN (10:00)
[2017-08-21] MEDS ORDERED: DEXTROSE 50% IN WATER 50 ML VIAL(D50) IV PUSH PRN (10:15)
[2017-08-21] MEDS ORDERED: GLUCAGON 1 MG/ML VIAL OTHER PRN (10:15)
[2017-08-21] MEDS ORDERED: INSULIN HUMAN REGULAR 1,000 UNITS/10 ML VIAL SQ PRN (10:15)
[2017-08-21] MEDS ORDERED: PILL SPLITTER OTHER PRN (12:30)
[2017-08-21] MEDS: SODIUM CHLOR 0.9% 1000 ML INJ 1,000 ML IV SCH ×2 (12:35→20:39)
[2017-08-21] MEDS: PIPERACIL-TAZO 4.5 GM PREMIX 100 ML IV SCH ×2 (12:50→19:13)
[2017-08-21] MEDS ORDERED: VANCOMYCIN INJ 1,000 MG in SODIUM CHLOR 0.9% 250 ML INJ 250 ML IV SCH (13:00)
--- NOTE | 2017-08-21 15:19 | MB ---
cc: LALA HOPE DATE OF CONSULTATION: 08/21/2017 HISTORY OF PRESENT ILLNESS Mr. Courtney is a pleasant 89-year-old male who was in the hospital approximately 1 week ago and underwent a suprapubic tube insertion due to urinary retention, recurrent urinary tract infections. He presented today because the suprapubic tube was not draining. According to his friend the tube has not been draining over the last 24-48 hours. It is unclear from the patient as he is partially demented, if he is actually peeing through his penis. He does not complain of any suprapubic discomfort at present. He does have an elevated white count and he recently had C. Difficile. He was treated with Flagyl. On admission today his creatinine is 0.66 and within normal limits. PAST MEDICAL HISTORY His medical history which is taken from the chart due to his history of dementia is: 1. Anemia. 2. Depression. 3. High cholesterol. 4. Hypertension. 5. Dementia. 6. Diabetes. 7. BPH with obstruction and retention. 8. Hiatal hernia. 9. Recent C. Difficile with H. Pylori. 10. Gastric ulcer in the past. PAST SURGICAL HISTORY 1. Cataracts. 2. Abdominal surgery for perforated stomach. 3. Cystoscopy with suprapubic tube insertion 1 week ago. ALLERGIES HYDROCODONE. MEDICATION For medications, please refer to the chart. FAMILY HISTORY Denies any significant family history of prostate cancer. SOCIAL HISTORY Currently lives in a correction. ROS: Denies CP, SOB or Abdominal pain. Gross hematuria noted. The remaining review of systems were reviewed and were negative. PHYSICAL EXAMINATION VITAL SIGNS: Vitals today, temperature 97.7, heart rate 81, respiratory rate 17, 146/73. GENERAL: A well-nourished 89-year-old male, in no acute distress. HEENT: Normocephalic, atraumatic. Pupils equal, round, reactive to light. Extraocular movements intact. NECK: Supple. HEART: Regular rate and rhythm. LUNGS: Clear. ABDOMEN: Soft, nontender, nondistended. SP tube was irrigated but is not irrigating at the bedside. A 16-[place] Barton catheter was inserted and his urine is bloody. I was unable to remove the suprapubic tube at the bedside. EXTREMITIES: Show no cyanosis, clubbing or edema. Psych: generalized mood Neuro: CNII-XII intact Skin: no lesions LABORATORY DATA White count is 22.8, hemoglobin 12.5, hematocrit 38.5, platelet count of 438, sodium 146, potassium 4.5, chloride 101, CO2 28.7, BUN of 26, creatinine 0.6, glucose is 117. IMAGING STUDIES CT scan of the abdomen and pelvis shows bilateral hydronephrosis and hydroureter, left-sided cortical cyst, upper pole there is a complex cyst 5 cm in size, grossly enlarged prostate gland. Bladder wall thickening is noted on the CAT scan. ASSESSMENT This is a 89-year-old male with suprapubic catheter which is presently not draining and may be dislodged partially. Continue IV antibiotics. Maintain Barton catheter and will irrigate q.4 hours for hematuria and clots. Will recommend cystoscopy with change of suprapubic tube in the operating room in the morning. Continue IV antibiotics, n.p.o. after midnight. Thank you for the consult, will follow with you. Lala PANDYA/KATYA /2:08 PM /2:56 PM [email or web address]
[2017-08-21] MEDS ORDERED: ACARBOSE 50 MG PO SCH (16:00)
--- NOTE | 2017-08-21 16:16 | HHI.HP ---
[facility] Service [facility] Primary Care Physician Unknown Admission Diagnosis sepsis, cystitis, pneumothorax Diagnoses: Chief Complaint: Poor urine output Travel History International Travel<30 Days: No Contact w/Intl Traveler <30 Da: No Traveled to Known Affected Are: No History of Present Illness Written by Yanni Lopez, acting as scribe for Dr. Stephens on 08/21/17 at 16: 16. Patient is an 89-year-old male with primary medical history of BPH, DM, HTN, frequent UTIs who came in from a [facility]pc for poor urine output on his suprapubic catheter. CT of the pelvis and abdomen which showed a suprapubic catheter placement is within the urinary bladder but an incidental finding of small anterior pneumothorax involving the left chest, a 6 mm pulmonary nodule multiple right lung base with nodular pleural thickening involving the major fissure on the left. WBC elevated 22.8, heart rate 96 when patient came in. Patient seen and examined today. Laying in bed. Confused but able to follow commands and answer some questions. Does not know how he got to the hospital. Oriented to self, knows that he is in [place], does not know what hospital nor the date and time. Denies chest pain, palpitations. Denies any fevers, chills, nausea, vomiting, diarrhea. Denies any abdominal pain. Denies any shortness of breath or dyspnea. On 2 L nasal cannula right now. Review of Systems ROS Limitations: Poor Historian Except as stated in HPI: all other systems reviewed are Neg Past Family Social History Past Medical History Pulled from previos hospitalization, as instructed by Sherman DM HTN HLD Frequent UTIs BPH Hiatal hernia History of gastric ulcers Past Surgical History Pulled from previous hospitalization, as instructed by Sherman Tonsillectomy Bilateral cataract surgery Stomach perforation repair Suprapubic catheter placement Reported Medications Reported Meds & Active Scripts Active Novolin R Inj (Insulin Human Regular) 1,000 Unit/10 Ml Vial 0 Units SQ DEICER ELEMENT WINDER MACHINE PRN 7 Days Levemir Inj (Insulin Detemir) 1,000 unit/ 10 ML Vial 15 Units SQ HS 30 Days Do not mix with any other Insulin. Flomax (Tamsulosin HCl) 0.4 Mg Cap 0.4 Mg PO DAILY 30 Days Reported Synthroid (Levothyroxine Sodium) 100 Mcg Tab 100 Mcg PO DAILY Lexapro (Escitalopram Oxalate) 5 Mg Tab 5 Mg PO DAILY Aricept (Donepezil HCl) 5 Mg Tablet 5 Mg PO HS Glyburide 5 Mg Tab 5 Mg PO DAILY Take with meals at the same time each day Preservision Areds (Multiple Vitamins W/ Minerals) 1 Cap Cap BID Aspirin 81 Mg Chew 81 Mg CHEW BID Lisinopril 10 Mg Tab 10 Mg PO DAILY Metoprolol Succinate ER 24 HR (Metoprolol Succinate) 50 Mg Tab 50 Mg PO BID Acarbose 50 Mg Tab 50 Mg PO AC DINNER Hydrocortisone 5 Mg Tab 5 Mg PO BID Take with food to decrease GI upset Allergies: Coded Allergies: hydrocodone (Verified Allergy, Severe, HIVES, 08/21/17) Active Ordered Medications Last Impressions Chest X-Ray 08/21/17 0737 Signed Impressions: Service Date/Time: August 08:00 - CONCLUSION: 1. No infiltrates. 2. Mild linear bibasilar atelectasis. Nathaniel Holman Jr., MD Abdomen/Pelvis CT 08/21/17 0737 Signed Impressions: Service Date/Time: August 08:18 - CONCLUSION: 1. Interval placement of a suprapubic catheter which is within the urinary bladder. In the short interval from the prior study there has been either a significant wall thickening of the urinary bladder or development of mural thrombus. 2. Grossly a large prostate gland. 3. Bilateral hydronephrosis and hydroureter. This is similar to the prior study. 4. 5 cm complex cystic mass involving the upper pole the left kidney. This is stable. 5. Tiny bilateral pleural effusions which are smaller from the prior study. 6. Small anterior pneumothorax involving the left chest. 7. 6 mm pulmonary nodule multiple right lung base with nodular pleural thickening involving the major fissure on the left. Consideration could be made to short-term CT to document stability. 8. 4.1 x 2.9 cm infrarenal above aortic aneurysm. 9. Umbilical hernia containing colon. 10. Cholelithiasis. Nathaniel Holman Jr., MD Family History From previous visit Maternal side history of cancer Social History Denies alcohol use Denies tobacco use Denies illicit drug use Physical Exam Vital Signs Vital Signs Date Time Temp Pulse Resp B/P (MAP) Pulse Ox O2 Delivery O2 Flow Rate FiO2 08/21/17 14:29 Nasal Cannula 2.00 08/21/17 13:55 97.8 88 17 125/67 (86) 97 Nasal Cannula 2.00 08/21/17 12:00 97.7 81 17 146/73 (97) 96 Nasal Cannula 2.00 08/21/17 10:31 98.4 87 17 122/63 (82) 97 Nasal Cannula 2.00 08/21/17 08:32 98.6 87 17 128/66 (86) 97 Nasal Cannula 2.00 08/21/17 07:45 18 97 Nasal Cannula 2.00 08/21/17 07:45 97 Nasal Cannula 2.00 08/21/17 07:45 99.2 89 17 132/67 (88) 97 Nasal Cannula 2.00 08/21/17 07:45 89 17 97 Nasal Cannula 2.00 08/21/17 06:40 98.5 96 20 162/77 (105) 97 Physical Exam GENERAL: This is a well-nourished, well-developed patient, in no apparent distress. SKIN: Warm and dry. HEAD: Normocephalic. No temporal or scalp tenderness. EYES: Pupils equal round and reactive. Extraocular motions intact. No scleral icterus. No injection or drainage. ENT: Nose without bleeding. Throat without erythema. Uvula midline. Airway patent. Very dry oral mucosa NECK: Trachea midline. Supple, nontender, no meningeal signs. CARDIOVASCULAR: Regular rate and rhythm without murmurs, gallops, or rubs. RESPIRATORY: Bilateral crackles at the bases. No wheezes, rales, or rhonchi. GASTROINTESTINAL: Abdomen soft, non-tender, nondistended. Bowel sounds active 4. No guarding. : Suprapubic catheter in place incision site with slight edema and erythema. Barton catheter in place noted hematuria 400 cc in the back MUSCULOSKELETAL: Extremities without clubbing, cyanosis, or edema. NEUROLOGICAL: Awake and alert. Oriented to self. Motor and sensory grossly within normal limits. Normal speech. Laboratory Laboratory Tests Test 08/21/17 07:51 08/21/17 15:46 White Blood Count 22.8 Red Blood Count 4.45 Hemoglobin 12.5 Hematocrit 38.5 Mean Corpuscular Volume 86.4 Mean Corpuscular Hemoglobin 28.0 Mean Corpuscular Hemoglobin Concent 32.4 Red Cell Distribution Width 15.2 Platelet Count 438 Mean Platelet Volume 7.5 Neutrophils (%) (Auto) 86.3 Lymphocytes (%) (Auto) 7.3 Monocytes (%) (Auto) 6.0 Eosinophils (%) (Auto) 0.3 Basophils (%) (Auto) 0.1 Neutrophils # (Auto) 19.6 Lymphocytes # (Auto) 1.7 Monocytes # (Auto) 1.4 Eosinophils # (Auto) 0.1 Basophils # (Auto) 0.0 CBC Comment DIFF FINAL Differential Comment Blood Urea Nitrogen 26 Creatinine 0.66 Random Glucose 117 Total Protein 6.5 Albumin 1.6 Calcium Level 8.0 Alkaline Phosphatase 88 Aspartate Amino Transf (AST/SGOT) 27 Alanine Aminotransferase (ALT/SGPT) 15 Total Bilirubin 0.5 Sodium Level 136 Potassium Level 4.5 Chloride Level 101 Carbon Dioxide Level 28.7 Anion Gap 6 Estimat Glomerular Filtration Rate 114 Lactic Acid Level 1.0 Date/Time Source Procedure Growth Status 08/21/17 07:50 Blood Peripheral Aerobic Blood Culture Pending Received 08/21/17 07:50 Blood Peripheral Anaerobic Blood Culture Pending Received Result Diagram: 08/21/17 0751 08/21/17 0751 Imaging Last Impressions Chest X-Ray 08/21/17736 Signed Impressions: Service Date/Time: August 08:00 - CONCLUSION: 1. No infiltrates. 2. Mild linear bibasilar atelectasis. Nathaniel Holman Jr., MD Abdomen/Pelvis CT 08/21/17736 Signed Impressions: Service Date/Time: August 08:18 - CONCLUSION: 1. Interval placement of a suprapubic catheter which is within the urinary bladder. In the short interval from the prior study there has been either a significant wall thickening of the urinary bladder or development of mural thrombus. 2. Grossly a large prostate gland. 3. Bilateral hydronephrosis and hydroureter. This is similar to the prior study. 4. 5 cm complex cystic mass involving the upper pole the left kidney. This is stable. 5. Tiny bilateral pleural effusions which are smaller from the prior study. 6. Small anterior pneumothorax involving the left chest. 7. 6 mm pulmonary nodule multiple right lung base with nodular pleural thickening involving the major fissure on the left. Consideration could be made to short-term CT to document stability. 8. 4.1 x 2.9 cm infrarenal above aortic aneurysm. 9. Umbilical hernia containing colon. 10. Cholelithiasis. MD Katelyn Aragon Jr. VTE Risk Assessment Caprini VTE Risk Assessment: Mod/High Risk (score >= 2) Caprini Risk Assessment Model Point Value = 1 Point Value = 2 Point Value = 3 Point Value = 5 Age 41-60 Minor surgery BMI > 25 kg/m2 Swollen legs Varicose veins or History of unexplained or recurrent spontaneous Oral contraceptives or hormone replacement Sepsis (< 1 month) Serious lung disease, including pneumonia (< 1 month) Abnormal pulmonary function Acute myocardial infarction Congestive heart failure (< 1 month) History of inflammatory bowel disease Medical patient at bed rest Age 61-74 Arthroscopic surgery Major open surgery (> 45 min) Laparoscopic surgery (> 45 min) Malignancy Confined to bed (> 72 hours) Immobilizing plaster cast Central venous access Age >= 75 History of VTE Family history of VTE Factor V Leiden Prothrombin [id number] Lupus anticoagulant Anticardiolipin antibodies Elevated serum homocysteine Heparin-induced thrombocytopenia Other congenital or acquired thrombophilia Stroke (< 1 month) Elective arthroplasty Hip, pelvis, or leg fracture Acute spinal cord injury (< 1 month) Prophylaxis Regimen Total Risk Factor Score Risk Level Prophylaxis Regimen 0-1 Low Early ambulation 2 Moderate Order ONE of the following: *Sequential Compression Device (SCD) *Heparin 5000 units SQ BID 3-4 Higher Order ONE of the following medications: *Heparin 5000 units SQ TID *Enoxaparin/Lovenox 40 mg SQ daily (WT < 150 kg, CrCl > 30 mL/min) *Enoxaparin/Lovenox 30 mg SQ daily (WT < 150 kg, CrCl > 10-29 mL/min) *Enoxaparin/Lovenox 30 mg SQ BID (WT < 150 kg, CrCl > 30 mL/min) AND/OR *Sequential Compression Device (SCD) 5 or more Highest Order ONE of the following medications: *Heparin 5000 units SQ TID (Preferred with Epidurals) *Enoxaparin/Lovenox 40 mg SQ daily (WT < 150 kg, CrCl > 30 mL/min) *Enoxaparin/Lovenox 30 mg SQ daily (WT < 150 kg, CrCl > 10-29 mL/min) *Enoxaparin/Lovenox 30 mg SQ BID (WT < 150 kg, CrCl > 30 mL/min) AND *Sequential Compression Device (SCD) Assessment and Plan Problem List: (1) UTI (urinary tract infection) ICD Code: N39.0 - Urinary tract infection, site not specified Status: Acute (2) Sepsis ICD Code: A41.9 - Sepsis, unspecified organism Status: Resolved (3) Aortic aneurysm ICD Code: I71.9 - Aortic aneurysm of unspecified site, without rupture Status: Acute (4) Pneumothorax ICD Code: J93.9 - Pneumothorax, unspecified Status: Acute (5) Dehydration ICD Code: E86.0 - Dehydration Status: Acute (6) Hypertension ICD Code: I10 - Essential (primary) hypertension Status: Chronic (7) Diabetes mellitus ICD Code: E11.9 - Type 2 diabetes mellitus without complications Status: Chronic Assessment and Plan Patient is an 89-year-old male with primary medical history of BPH, DM, HTN, frequent UTIs who came in from a fpc for poor urine output on his suprapubic catheter. Sepsis, UTI - suspected since patient has suprapubic catheter, prior history of recurrent UTIs Suprapubic catheterization secondary to BPH - WBC 22.5, heart rate 96 - CT of the abdomen and pelvis showed 1. Interval placement of a suprapubic catheter which is within the urinary bladder. In the short interval from the prior study there has been either a significant wall thickening of the urinary bladder or development of mural thrombus. 2. Grossly a large prostate gland. 3. Bilateral hydronephrosis and hydroureter. This is similar to the prior study. 4. 5 cm complex cystic mass involving the upper pole the left kidney. This is stable. 5. Tiny bilateral pleural effusions which are smaller from the prior study. 6. Small anterior pneumothorax involving the left chest. 7. 6 mm pulmonary nodule multiple right lung base with nodular pleural thickening involving the major fissure on the left. Consideration could be made to short- term CT to document stability. 8. 4.1 x 2.9 cm infrarenal above aortic aneurysm. 9. Umbilical hernia containing colon. 10. Cholelithiasis. - UA ordered, follow-up results - Blood cultures, follow-up results - Lactic acid 1.0 - IV fluid for hydration - IV vancomycin, IV Zosyn - Consult urology for further recommendations. Small Pneumothorax - Due to dental finding on the CT abdomen and pelvis - Keep O2 sat greater than 90%, O2 nasal cannula when necessary - Chest x-ray showed no infiltrates. Mild linear bibasilar atelectasis - If patient has increasing shortness of breath, will order stat x-ray - Incentive spirometer. Monitor respiratory status. Diabetes - On home insulin and Acarbose, glyburide - Will start insulin sliding scale, Levemir 15 units daily at bedtime, glyburide 5 mg daily - Monitor Accu-Cheks, monitor for hypoglycemia Hypothyroidism - Continue levothyroxinE BPH -Continue tamsulosin Generalized weakness - PT to treat and evAL DVT prop SCDs This note was transcribed by JUAN JOSE Jamil . I, Dr. Mary Stephens personally performed the history, physical exam, and medical decision making; and confirmed the accuracy of the information in the transcribed note. Authenticated by Dr. Mary Stephens on 08/21/17 at 16:16. Code Status Full Code Discussed Condition With Patient, nursing Physician Certification 2 Midnight Certification Type: Admission for Inpatient Services Order for Inpatient Services The services are ordered in accordance with Medicare regulations or non- Medicare payer requirements, as applicable. In the case of services not specified as inpatient-only, they are appropriately provided as inpatient services in accordance with the 2-midnight benchmark. Estimated LOS (days): 2 days is the estimated time the patient will need to remain in the hospital, assuming treatment plan goals are met and no additional complications. Post-Hospital Plan: SNF Problem Qualifiers (1) UTI (urinary tract infection): Qualified Codes: N30.00 - Acute cystitis without hematuria (2) Sepsis: Qualified Codes: A41.9 - Sepsis, unspecified organism (3) Aortic aneurysm: Qualified Codes: I71.4 - Abdominal aortic aneurysm, without rupture (4) Pneumothorax: Qualified Codes: J93.11 - Primary spontaneous pneumothorax Yanni Nugent Aug 21, 2017 16:16 Mary Stephens MD Aug 21, 2017 16:17
[2017-08-21 16:24] LABS: BLOOD, URINE LARGE (NEG); COMMENT (UR) CULTURE INDICATED; CULTURE IF INDICATED CULTURE INDICATED; GLUCOSE,URINE NEG (NEG); KETONE, URINE NEG (NEG); MUCUS URINE FEW /lpf (OCC); NITRITE,URINE POS (NEG)
[2017-08-21 16:25] LABS: URINE COLOR DARK-BROWN (YELLW/STRAW)
[2017-08-21] MEDS: DONEPEZIL HCL 5 MG TAB PO SCH (20:37)
[2017-08-21] MEDS: HYDROCORTISONE 10 MG TAB PO SCH (20:37)
[2017-08-21] MEDS: METOPROLOL SUCCINATE 50 MG EXTENDED RELEASE TAB PO SCH (20:37)
[2017-08-21] MEDS: ASPIRIN 81 MG CHEW TAB CHEW SCH (20:38)
[2017-08-21] MEDS: SODIUM CHLORIDE 0.9% FLUSH 10 ML FLUSH IV FLUSH SCH (20:38)
[2017-08-21] MEDS: DOCUSATE SODIUM 50 MG/SENNA 8.6 MG TAB PO SCH (20:39)
[2017-08-21] MEDS: INSULIN DETEMIR 100 UNITS/ML VIAL SQ SCH (22:17)
[2017-08-22] VITALS: BP 120/61; PULSE 76; RESP 17; TEMP 98; O2SAT 97
[2017-08-22] MEDS: PIPERACIL-TAZO 4.5 GM PREMIX 100 ML IV SCH ×4 (01:44→18:16)
[2017-08-22] MEDS ORDERED: LACTATED RINGER'S 1000 ML IV PRN (03:30)
[2017-08-22] MEDS ORDERED: POVIDONE IODINE 5% (ANTISEPSIS KIT) 4 APPLICATIONS EACH NARE PRN (03:30)
[2017-08-22] MEDS ORDERED: CHLORHEXIDINE GLUCONATE 2 % 1 PACK (2 CLOTHS) TOPICAL PRN (03:30)
[2017-08-22] MEDS ORDERED: ACETAMINOPHEN 1000 MG/100 ML 0 ML IV ONE (06:23)
--- NOTE | 2017-08-22 06:32 | RADRPT ---
EXAM DATE/TIME: 08/22/2017 05:10 [facility] COMPARISON: CHEST SINGLE AP, August 21, 2017, 8:00. INDICATIONS : Pneumothorax MEDICAL HISTORY : Diabetes mellitus type II. Hypertension. BPH SURGICAL HISTORY : Tonsillectomy. ENCOUNTER: Subsequent ACUITY: 2 days PAIN SCORE: 0/10 LOCATION: Bilateral chest FINDINGS: A single view of the chest demonstrates bibasilar airspace disease, right greater than left unchanged from August 21. Elevated right hemidiaphragm. No pneumothorax. Tortuous and atherosclerotic aorta. CONCLUSION: 1. Basilar atelectasis. Findings similar to August 21. Vinnie Jessica MD on August 22, 2017 at 6:29 Board Certified Radiologist. This report was verified electronically.
[2017-08-22] MEDS ORDERED: BUPIVACAINE HCL PF 0.5% 30 ML VIAL ONE (07:05)
[2017-08-22] MEDS: VANCOMYCIN INJ 1,000 MG in SODIUM CHLOR 0.9% 250 ML INJ 250 ML IV SCH (07:14)
[2017-08-22] MEDS ORDERED: KETAMINE HCL 500 MG/5 ML VIAL ONE (07:17)
[2017-08-22] MEDS: SODIUM CHLORIDE 0.9% FLUSH 10 ML FLUSH IV FLUSH SCH ×2 (07:57→21:09)
[2017-08-22] MEDS: ASPIRIN 81 MG CHEW TAB CHEW SCH ×2 (07:57→21:08)
--- NOTE | 2017-08-22 08:50 | PD.OP ---
Operative Report Date of Surgery: Aug 22, 2017 Preoperative Diagnosis: Nonfunctioning suprapubic tube catheter with gross hematuria Postoperative Diagnosis: Same Procedure: Cystoscopy with clot evacuation and change of suprapubic tube catheter; fulguration of bladder neck Anesthesia: Gen. LMA Surgeon: Shaheen Armstrong Fraud Investigator(s): None Resident Surgeon: None Operation and Findings: 89-year-old male who underwent suprapubic tube insertion approximately 2 weeks ago. The patient presented to the emergency room yesterday evening with no drainage from the suprapubic tube catheter and presence of gross hematuria after Barton catheter was inserted. Decision made to bring the patient to the operating room to undergo cystoscopy with removal and replacement of suprapubic tube catheter. Of note, I was unable to deflate the balloon and removed the suprapubic tube catheter in the emergency room yesterday. Risk and benefits were discussed with the patient he was willing to proceed. The patient was brought to the operating room and identified by myself as Rodrigue Courtney. He was laced in dorsal lithotomy position, prepped and draped in usual sterile fashion, received preprocedure antibiotics and general LMA anesthesia was administered. 22 [place] scope was inserted in the bladder and a large clot was noted be within the bladder. The clot was then evacuated. An area of bleeding was noted at the bladder neck and the Bugbee cautery was utilized to fulgurate this area and stopped the bleeding. The balloon of the indwelling suprapubic tube catheter was broken with a cystoscopic Botox needle. This allowed for deflation of the balloon and it was removed in this 22 [place] suprapubic tube catheter was changed out without difficulty. 10 cc were left in the balloon. This was draining well at this time. The cystoscope was removed and he was awoken, extubated, and transferred to recovery room in stable condition. Shaheen Armstrong DO Aug 22, 2017 08:50
[2017-08-22] MEDS: DOCUSATE SODIUM 50 MG/SENNA 8.6 MG TAB PO SCH ×2 (09:00→21:08)
[2017-08-22] MEDS: LEVOTHYROXINE SODIUM 100 MCG TAB PO SCH (09:00)
[2017-08-22] MEDS: TAMSULOSIN HCL 0.4 MG CAP PO SCH (09:00)
[2017-08-22] MEDS: HYDROCORTISONE 10 MG TAB PO SCH ×2 (09:00→21:08)
[2017-08-22] MEDS: glyBURIDE 5 MG TAB PO SCH (09:00)
[2017-08-22] MEDS: LISINOPRIL 10 MG TAB PO SCH (09:00)
[2017-08-22] MEDS: METOPROLOL SUCCINATE 50 MG EXTENDED RELEASE TAB PO SCH ×2 (09:00→21:08)
[2017-08-22] MEDS: ESCITALOPRAM OXALATE 10 MG TAB PO SCH (09:00)
[2017-08-22] MEDS ORDERED: DO NOT ADM ANY ANTICOAGULANT DRUGS PRN (09:05)
[2017-08-22] MEDS: SODIUM CHLOR 0.9% 1000 ML INJ 1,000 ML IV SCH ×3 (09:25→22:34)
--- NOTE | 2017-08-22 11:22 | HHI.PR ---
Subjective Remarks In bed appears tired. No fever or chills. Says he has some pain at the suprapubic cath site. No n/v/d/.c Eating but not much has decreased appetite. Objective Vitals Vital Signs Date Time Temp Pulse Resp B/P (MAP) Pulse Ox O2 Delivery O2 Flow Rate FiO2 08/22/17 10:10 Nasal Cannula 2.00 08/22/17 10:00 97.4 78 14 116/55 (75) 96 Nasal Cannula 2 08/22/17 09:45 79 17 107/52 (70) 94 08/22/17 09:30 79 14 92/50 (64) 95 Nasal Cannula 3 08/22/17 09:15 79 15 84/51 (62) 98 Simple Mask 6 08/22/17 09:01 97.4 78 13 109/53 (71) 99 Simple Mask 6 08/22/17 07:15 Nasal Cannula 2 08/22/17 00:00 98.0 76 17 120/61 (80) 97 08/21/17 20:35 97 Nasal Cannula 2.00 08/21/17 20:00 98.1 80 17 126/58 (80) 97 08/21/17 16:00 97.2 82 16 138/63 (88) 98 08/21/17 14:29 Nasal Cannula 2.00 08/21/17 13:55 97.8 88 17 125/67 (86) 97 Nasal Cannula 2.00 08/21/17 12:00 97.7 81 17 146/73 (97) 96 Nasal Cannula 2.00 I/O 08/21/17 08/21/17 08/21/17 08/22/17 08/22/17 08/22/17 07:00 15:00 23:00 07:00 15:00 23:00 Intake Total 2950 ml 1000 ml 340 ml 800 ml Output Total 950 ml 105 ml Balance 2950 ml 1000 ml -610 ml 695 ml Intake Oral 500 ml 240 ml IV Total 2450 ml 1000 ml 100 ml Other 800 ml Output Urine Total 950 ml 100 ml Estimated Blood Loss 5 ml # Voids 0 # Bowel Movements 0 Result Diagram: 08/21/17 0751 08/21/17 0751 Imaging Last Impressions Chest X-Ray 08/22/17 06 Signed Impressions: Service Date/Time: Tuesday, August 22, 2017 05:10 - CONCLUSION: 1. Basilar atelectasis. Findings similar to August 21. Vinnie Jessica MD Abdomen/Pelvis CT 08/21/17 0737 Signed Impressions: Service Date/Time: August 08:18 - CONCLUSION: 1. Interval placement of a suprapubic catheter which is within the urinary bladder. In the short interval from the prior study there has been either a significant wall thickening of the urinary bladder or development of mural thrombus. 2. Grossly a large prostate gland. 3. Bilateral hydronephrosis and hydroureter. This is similar to the prior study. 4. 5 cm complex cystic mass involving the upper pole the left kidney. This is stable. 5. Tiny bilateral pleural effusions which are smaller from the prior study. 6. Small anterior pneumothorax involving the left chest. 7. 6 mm pulmonary nodule multiple right lung base with nodular pleural thickening involving the major fissure on the left. Consideration could be made to short-term CT to document stability. 8. 4.1 x 2.9 cm infrarenal above aortic aneurysm. 9. Umbilical hernia containing colon. 10. Cholelithiasis. Nathaniel Holman Jr., MD Objective Remarks GENERAL: This is a well-nourished, well-developed patient, in no apparent distress. CARDIOVASCULAR: Regular rate and rhythm without murmurs, gallops, or rubs. RESPIRATORY: Bilateral crackles at the bases. No wheezes, rales, or rhonchi. GASTROINTESTINAL: Abdomen soft, non-tender, nondistended. Bowel sounds active 4. No guarding. : Suprapubic catheter in place incision site with slight edema and erythema. Barton catheter in place noted hematuria 400 cc in the back MUSCULOSKELETAL: Extremities without clubbing, cyanosis, or edema. NEUROLOGICAL: Awake and alert. Oriented to self. Motor and sensory grossly within normal limits. Normal speech. Procedures S/P Cystoscopy with clot evacuation and change of suprapubic tube catheter; fulguration of bladder neck by Dr Armstrong urology on 08/21/17 A/P Problem List: (1) UTI (urinary tract infection) ICD Code: N39.0 - Urinary tract infection, site not specified Status: Acute (2) Sepsis ICD Code: A41.9 - Sepsis, unspecified organism Status: Resolved (3) Aortic aneurysm ICD Code: I71.9 - Aortic aneurysm of unspecified site, without rupture Status: Acute (4) Pneumothorax ICD Code: J93.9 - Pneumothorax, unspecified Status: Acute (5) Dehydration ICD Code: E86.0 - Dehydration Status: Acute (6) Hypertension ICD Code: I10 - Essential (primary) hypertension Status: Chronic (7) Diabetes mellitus ICD Code: E11.9 - Type 2 diabetes mellitus without complications Status: Chronic Assessment and Plan Patient is an 89-year-old male with primary medical history of BPH, DM, HTN, frequent UTIs who came in from a senior living for poor urine output on his suprapubic catheter. Sepsis, MRSA UTI - suspected since patient has suprapubic catheter, prior history of recurrent UTIs Suprapubic catheterization secondary to BPH. S/P Cystoscopy with clot evacuation and change of suprapubic tube catheter; fulguration of bladder neck by Dr Armstrong urology on 08/21/17 - WBC 22.5, heart rate 96 on admission, Monitor trend - CT of the abdomen and pelvis showed 1. Interval placement of a suprapubic catheter which is within the urinary bladder. In the short interval from the prior study there has been either a significant wall thickening of the urinary bladder or development of mural thrombus. 2. Grossly a large prostate gland. 3. Bilateral hydronephrosis and hydroureter. This is similar to the prior study. 4. 5 cm complex cystic mass involving the upper pole the left kidney. This is stable. 5. Tiny bilateral pleural effusions which are smaller from the prior study. 6. Small anterior pneumothorax involving the left chest. 7. 6 mm pulmonary nodule multiple right lung base with nodular pleural thickening involving the major fissure on the left. Consideration could be made to short- term CT to document stability. 8. 4.1 x 2.9 cm infrarenal above aortic aneurysm. 9. Umbilical hernia containing colon. 10. Cholelithiasis. - Urine cultures with MRSA - Blood cultures, follow-up results - Lactic acid 1.0 - IV fluid for hydration - IV vancomycin, IV Zosyn - Consult urology for further recommendations. -S/P Cystoscopy with clot evacuation and change of suprapubic tube catheter; fulguration of bladder neck by Dr Armstrong urology on 08/21/17 Small Pneumothorax - Due to dental finding on the CT abdomen and pelvis - Keep O2 sat greater than 90%, O2 nasal cannula when necessary - Chest x-ray showed no infiltrates. Mild linear bibasilar atelectasis - If patient has increasing shortness of breath, will order stat x-ray - Incentive spirometer. Monitor respiratory status. Diabetes - On home insulin and Acarbose, glyburide - Will start insulin sliding scale, Levemir 15 units daily at bedtime, glyburide 5 mg daily - Monitor Accu-Cheks, monitor for hypoglycemia Hypothyroidism - Continue levothyroxinE BPH -Continue tamsulosin Generalized weakness - PT to treat and evAL DVT prop SCDs Code Status Full Code Discussed Condition With Patient, nurse, daughter by phone Problem Qualifiers (1) UTI (urinary tract infection): Qualified Codes: N30.00 - Acute cystitis without hematuria (2) Sepsis: Qualified Codes: A41.9 - Sepsis, unspecified organism (3) Aortic aneurysm: Qualified Codes: I71.4 - Abdominal aortic aneurysm, without rupture (4) Pneumothorax: Qualified Codes: J93.11 - Primary spontaneous pneumothorax Mary Stephens MD Aug 22, 2017 11:22
[2017-08-22 12:00] VITALS: BP 104/55; PULSE 90; RESP 16; TEMP 97.4; O2SAT 92
[2017-08-22] MEDS ORDERED: ePHEDrine/NS 25 MG/5 ML SYR IV ONE (12:00)
[2017-08-22] MEDS ORDERED: DEXAMETHASONE SOD PHOS 4 MG/ML VIAL IV ONE (12:00)
[2017-08-22] MEDS ORDERED: ONDANSETRON HCL 4 MG/2 ML VIAL IV PUSH ONE (12:00)
[2017-08-22] MEDS ORDERED: SODIUM CHLORIDE 0.9% 20 ML VIAL IV ONE (12:00)
[2017-08-22] MEDS ORDERED: PHENYLEPH/NS 1000 MCG/10 ML SYR IV ONE (12:00)
[2017-08-22] MEDS ORDERED: PROPOFOL 200 MG/20 ML AMP IV ONE (12:00)
[2017-08-22] MEDS ORDERED: LIDOCAINE HCL 1% PF 5 ML AMPULE OTHER ONE (12:00)
--- NOTE | 2017-08-22 15:05 | PQ ---
Physician Query Response Document PATIENT: MARIAM RUGGIERO : 1925 ADMIT DATE: 08/21/2017 10:04 AM DISCH DATE: RESPONDING PROVIDER #: [email or web address] QUERY TEXT: Cause and Effect Relationship Please clarify in documentation the relationship, if any, between UTI and Su prapubic Catheter Such as: -- Conditions are due to or associated -- Unrelated to each other -- Other, please specify The patient's Clinical Indicators include: The H WBC 22.5, heart rate 96 UA- Dark-Brown, Cloudy Pos-Urine Nitrites Leukocytes Esterase-Large WBC clumps- many Query created by: Keesha Culver on 08/22/2017 10:44 AM RESPONSE TEXT: Urosepsis catheter related UTI. Patient has suprapubic cath and MRSA UTI, presented with sepsis. Electronically signed by: Mary Stephens MD 08/22/2017 3:00 PM
[2017-08-22 16:00] VITALS: BP 131/60; PULSE 92; RESP 16; TEMP 96.4; O2SAT 90
[2017-08-22 18:17] LABS: AUTOMATED NEUTROPHIL # 13.4 TH/MM3 (1.8-7.7); BASOPHIL % 0.1 % (0.0-2.0); HEMATOCRIT 34.3 % (39.0-51.0); HEMO FLAGS DIFF FINAL; LYMPH % 5.2 % (9.0-44.0); LYMPHOCYTE # 0.8 TH/MM3 (1.0-4.8); MEAN CELL VOLUME 87.6 FL (80.0-100.0); MEAN CORPUSCULAR HEMOGLOBIN 28.3 PG (27.0-34.0); MEAN CORPUSCULAR HGB CONC 32.3 % (32.0-36.0); MONO % 2.3 % (0.0-8.0); NEUT % 92.4 % (16.0-70.0); PLATELET COUNT 418 TH/MM3 (150-450); RED BLOOD COUNT 3.91 MIL/MM3 (4.50-5.90); RED CELL DISTRIBUTION WIDTH 15.5 % (11.6-17.2); WHITE BLOOD COUNT 14.4 TH/MM3 (4.0-11.0)
[2017-08-22 18:34] LABS: BICARBONATE 26.9 MEQ/L (21.0-32.0); POTASSIUM 3.4 MEQ/L (3.5-5.1)
[2017-08-22 18:58] LABS: CALCIUM-PROTEIN CORRECTED 7.9 MG/DL (8.5-10.1)
[2017-08-22 20:00] VITALS: BP 122/67; PULSE 100; RESP 17; TEMP 97; O2SAT 96
[2017-08-22] MEDS: DONEPEZIL HCL 5 MG TAB PO SCH (21:08)
[2017-08-22] MEDS: LACTOBACILLUS ACIDOPHILUS TAB PO SCH (21:08)
[2017-08-22] MEDS: INSULIN ASPART SUPPLEMENTAL SCALE SQ SCH (21:09)
[2017-08-22] MEDS: INSULIN DETEMIR 100 UNITS/ML VIAL SQ SCH (21:10)
[2017-08-23] VITALS: BP 126/65; PULSE 76; RESP 17; TEMP 98.1; O2SAT 96
[2017-08-23] MEDS: PIPERACIL-TAZO 4.5 GM PREMIX 100 ML IV SCH ×2 (01:46→05:18)
[2017-08-23 08:00] VITALS: BP 125/67; PULSE 64; RESP 17; TEMP 95.4; O2SAT 98
[2017-08-23] MEDS: LISINOPRIL 10 MG TAB PO SCH (08:37)
[2017-08-23] MEDS: LACTOBACILLUS ACIDOPHILUS TAB PO SCH ×2 (08:37→22:03)
[2017-08-23] MEDS: ASPIRIN 81 MG CHEW TAB CHEW SCH ×2 (08:38→22:04)
[2017-08-23] MEDS: LEVOTHYROXINE SODIUM 100 MCG TAB PO SCH (08:38)
[2017-08-23] MEDS: glyBURIDE 5 MG TAB PO SCH (08:52)
[2017-08-23] MEDS: INSULIN ASPART SUPPLEMENTAL SCALE SQ SCH ×4 (08:52→22:05)
[2017-08-23] MEDS: TAMSULOSIN HCL 0.4 MG CAP PO SCH (08:52)
[2017-08-23] MEDS: VANCOMYCIN INJ 1,000 MG in SODIUM CHLOR 0.9% 250 ML INJ 250 ML IV SCH (08:58)
[2017-08-23] MEDS: SODIUM CHLORIDE 0.9% FLUSH 10 ML FLUSH IV FLUSH SCH ×2 (09:00→21:00)
[2017-08-23 09:01] LABS: BASOPHIL % 0.3 % (0.0-2.0); EOSINOPHIL % 0.4 % (0.0-4.0); HEMATOCRIT 32.3 % (39.0-51.0); HEMO FLAGS DIFF FINAL; LYMPHOCYTE # 1.6 TH/MM3 (1.0-4.8); MEAN CELL VOLUME 87.2 FL (80.0-100.0); MEAN CORPUSCULAR HEMOGLOBIN 28.3 PG (27.0-34.0); MEAN CORPUSCULAR HGB CONC 32.4 % (32.0-36.0); MONO % 5.4 % (0.0-8.0); NEUT % 80.9 % (16.0-70.0); PLATELET COUNT 409 TH/MM3 (150-450); RED BLOOD COUNT 3.71 MIL/MM3 (4.50-5.90); RED CELL DISTRIBUTION WIDTH 15.1 % (11.6-17.2); WHITE BLOOD COUNT 12.4 TH/MM3 (4.0-11.0)
[2017-08-23] MEDS: ESCITALOPRAM OXALATE 10 MG TAB PO SCH (09:02)
[2017-08-23] MEDS: HYDROCORTISONE 10 MG TAB PO SCH ×2 (09:02→22:03)
[2017-08-23] MEDS: METOPROLOL SUCCINATE 50 MG EXTENDED RELEASE TAB PO SCH ×2 (09:07→22:03)
[2017-08-23 09:26] VITALS: O2SAT 95
[2017-08-23 09:37] LABS: BICARBONATE 25.1 MEQ/L (21.0-32.0); POTASSIUM 3.2 MEQ/L (3.5-5.1)
[2017-08-23 10:08] LABS: CALCIUM-PROTEIN CORRECTED 8.4 MG/DL (8.5-10.1)
--- NOTE | 2017-08-23 10:41 | HHI.PR ---
Subjective Patient symptoms today Pt alert and awake. Feeling better by report. C/O constipation Objective Vital Signs Vital Signs Date Time Temp Pulse Resp B/P (MAP) Pulse Ox O2 Delivery O2 Flow Rate FiO2 08/23/17 08:00 95.4 64 17 125/67 (86) 98 08/23/17 00:00 98.1 76 17 126/65 (85) 96 08/22/17 21:09 Nasal Cannula 2.00 08/22/17 20:00 97.0 100 17 122/67 (85) 96 08/22/17 16:00 96.4 92 16 131/60 (83) 90 08/22/17 14:19 Nasal Cannula 08/22/17 12:00 97.4 90 16 104/55 (71) 92 Intake & Output 08/23/17 08/23/17 06:59 18:59 Intake Total 440 ml Output Total 900 ml Balance -460 ml Intake Oral 240 ml IV Total 200 ml Output Urine Total 900 ml Result Diagram: 08/23/1771308/23/17713 Objective Remarks Abd:soft,nt,nd SP tube in good position and clear urine Medications and IVs Current Medications Medications (Trade) Dose Ordered Sig/Shanel Route Start Time Stop Time Status Last Admin Sodium Chloride 1,000 ml @ 100 mls/hr Q10H IV 08/21/17 09:57 08/22/17 22:34 (NS Flush) 2 ml UNSCH PRN IV FLUSH 08/21/17 10:00 (NS Flush) 2 ml BID IV FLUSH 08/21/17 21:00 08/22/17 21:09 (Tylenol) 650 mg Q4H PRN PO 08/21/17 10:00 (Zofran Inj) 4 mg Q6H PRN IVP 08/21/17 10:00 (Narcan Inj) 0.4 mg UNSCH PRN IV PUSH 08/21/17 10:00 (Janine-Colace) 1 tab BID PO 08/21/17 21:00 08/22/17 21:08 (Milk Of Magnesia Liq) 30 ml Q12H PRN PO 08/21/17 10:00 (Senokot) 17.2 mg Q12H PRN PO 08/21/17 10:00 (Dulcolax Supp) 10 mg DAILY PRN RECTAL 08/21/17 10:00 (Lactulose Liq) 30 ml DAILY PRN PO 08/21/17 10:00 (Aspirin Chew) 81 mg BID CHEW 08/21/17 21:00 08/23/17 08:38 (Aricept) 5 mg HS PO 08/21/17 21:00 08/22/17 21:08 (Lexapro) 5 mg DAILY PO 08/22/17 09:00 08/23/17 09:02 (Diabeta) 5 mg DAILY PO 08/22/17 09:00 08/23/17 08:52 (Cortef) 5 mg BID PO 08/21/17 21:00 08/23/17 09:02 (Levemir Inj) 15 units HS SQ 08/21/17 21:00 08/22/17 21:10 (NovoLIN R INJ) DOGGER PRN SQ 08/21/17 10:15 (Synthroid) 100 mcg DAILY PO 08/22/17 09:00 08/23/17 08:38 (Prinivil) 10 mg DAILY PO 08/22/17 09:00 08/23/17 08:37 (Toprol Xl) 50 mg BID PO 08/21/17 21:00 08/23/17 09:07 (Flomax) 0.4 mg DAILY PO 08/22/17 09:00 08/23/17 08:52 Patient Own Medication PT OWN MED: ACAR... AC DINNER PO 08/21/17 16:00 Future Hold (D50w (Vial) Inj) 50 ml UNSCH PRN IV PUSH 08/21/17 10:15 08/22/17 09:07 (Glucagon Inj) 1 mg UNSCH PRN OTHER 08/21/17 10:15 Piperacillin Sod/ Tazobactam Sod 100 ml @ 200 mls/hr Q6H IV 08/21/17 13:00 08/23/17 05:18 (Pill Splitter) 1 ea UNSCH PRN OTHER 08/21/17 12:30 08/23/17 09:02 Vancomycin HCl 1000 mg/Sodium Chloride 250 ml @ 250 mls/hr Q24H IV 08/22/17 08:00 08/23/17 08:58 Lactated Ringer's 1,000 ml @ 30 mls/hr Q24H PRN IV 08/22/17 03:30 08/25/17 03:29 (Betadine 5% Antisepsis Kit) 1 applic DOGGER PRN EACH NARE 08/22/17 03:30 08/25/17 03:29 (Chlorhexidine 2% Cloth) 3 pack DOGGER PRN TOPICAL 08/22/17 03:30 08/25/17 03:29 (Lactinex) 1 tab Q12HR PO 08/22/17 21:00 08/23/17 08:37 (NovoLOG SUPPLEMENTAL SCALE) 1 ACHS SLIDING SCALE SQ 08/22/17 21:00 08/23/17 08:52 Assessment and Plan Assessment and Plan Stable s/p SP tube insertion F/U for SP tube change in office in one month Shaheen Armstrong DO Aug 23, 2017 10:41
[2017-08-23] MEDS: BISACODYL 10 MG SUPP RECTAL ONE ×2 (10:45→12:31)
--- NOTE | 2017-08-23 11:32 | HHI.PR ---
Subjective Remarks Complained of constipation. No pain at the cath site says he feels much better. No n/v/d/c. Denies fever or chills. Objective Vitals Vital Signs Date Time Temp Pulse Resp B/P (MAP) Pulse Ox O2 Delivery O2 Flow Rate FiO2 08/23/17 09:26 95 Nasal Cannula 3.00 08/23/17 08:00 95.4 64 17 125/67 (86) 98 08/23/17 00:00 98.1 76 17 126/65 (85) 96 08/22/17 21:09 Nasal Cannula 2.00 08/22/17 20:00 97.0 100 17 122/67 (85) 96 08/22/17 16:00 96.4 92 16 131/60 (83) 90 08/22/17 14:19 Nasal Cannula 08/22/17 12:00 97.4 90 16 104/55 (71) 92 I/O 08/22/17 08/22/17 08/22/17 08/23/17 08/23/17 08/23/17 07:00 15:00 23:00 07:00 15:00 23:00 Intake Total 340 ml 800 ml 500 ml 440 ml Output Total 950 ml 105 ml 800 ml 900 ml Balance -610 ml 695 ml -300 ml -460 ml Intake Oral 240 ml 400 ml 240 ml IV Total 100 ml 100 ml 200 ml Other 800 ml Output Urine Total 950 ml 100 ml 800 ml 900 ml Estimated Blood Loss 5 ml # Bowel Movements 0 Result Diagram: 08/23/1714 08/23/17 0714 Imaging Last Impressions Chest X-Ray 08/22/17 0600 Signed Impressions: Service Date/Time: Tuesday, August 22, 2017 05:10 - CONCLUSION: 1. Basilar atelectasis. Findings similar to August 21. Vinnie Jessica MD Abdomen/Pelvis CT 08/21/17 0737 Signed Impressions: Service Date/Time: August 08:18 - CONCLUSION: 1. Interval placement of a suprapubic catheter which is within the urinary bladder. In the short interval from the prior study there has been either a significant wall thickening of the urinary bladder or development of mural thrombus. 2. Grossly a large prostate gland. 3. Bilateral hydronephrosis and hydroureter. This is similar to the prior study. 4. 5 cm complex cystic mass involving the upper pole the left kidney. This is stable. 5. Tiny bilateral pleural effusions which are smaller from the prior study. 6. Small anterior pneumothorax involving the left chest. 7. 6 mm pulmonary nodule multiple right lung base with nodular pleural thickening involving the major fissure on the left. Consideration could be made to short-term CT to document stability. 8. 4.1 x 2.9 cm infrarenal above aortic aneurysm. 9. Umbilical hernia containing colon. 10. Cholelithiasis. Nathaniel Holman Jr., MD Objective Remarks GENERAL: This is a well-nourished, well-developed patient, in no apparent distress. CARDIOVASCULAR: Regular rate and rhythm without murmurs, gallops, or rubs. RESPIRATORY: Bilateral crackles at the bases. No wheezes, rales, or rhonchi. GASTROINTESTINAL: Abdomen soft, non-tender, nondistended. Bowel sounds active 4. No guarding. : Suprapubic catheter in place incision site with slight edema and erythema. Barton catheter in place noted hematuria 400 cc in the back MUSCULOSKELETAL: Extremities without clubbing, cyanosis, or edema. NEUROLOGICAL: Awake and alert. Oriented to self. Motor and sensory grossly within normal limits. Normal speech. Procedures S/P Cystoscopy with clot evacuation and change of suprapubic tube catheter; fulguration of bladder neck by Dr Armstrong urology on 08/21/17 A/P Problem List: (1) UTI (urinary tract infection) ICD Code: N39.0 - Urinary tract infection, site not specified Status: Acute (2) Sepsis ICD Code: A41.9 - Sepsis, unspecified organism Status: Resolved (3) Aortic aneurysm ICD Code: I71.9 - Aortic aneurysm of unspecified site, without rupture Status: Acute (4) Pneumothorax ICD Code: J93.9 - Pneumothorax, unspecified Status: Acute (5) Dehydration ICD Code: E86.0 - Dehydration Status: Acute (6) Hypertension ICD Code: I10 - Essential (primary) hypertension Status: Chronic (7) Diabetes mellitus ICD Code: E11.9 - Type 2 diabetes mellitus without complications Status: Chronic Assessment and Plan Patient is an 89-year-old male with primary medical history of BPH, DM, HTN, frequent UTIs who came in from a [facility] for poor urine output on his suprapubic catheter. Sepsis, MRSA UTI - suspected since patient has suprapubic catheter, prior history of recurrent UTIs Suprapubic catheterization secondary to BPH. S/P Cystoscopy with clot evacuation and change of suprapubic tube catheter; fulguration of bladder neck by Dr Armstrong urology on 08/21/17 - WBC 22.5, heart rate 96 on admission, Monitor trend - CT of the abdomen and pelvis showed 1. Interval placement of a suprapubic catheter which is within the urinary bladder. In the short interval from the prior study there has been either a significant wall thickening of the urinary bladder or development of mural thrombus. 2. Grossly a large prostate gland. 3. Bilateral hydronephrosis and hydroureter. This is similar to the prior study. 4. 5 cm complex cystic mass involving the upper pole the left kidney. This is stable. 5. Tiny bilateral pleural effusions which are smaller from the prior study. 6. Small anterior pneumothorax involving the left chest. 7. 6 mm pulmonary nodule multiple right lung base with nodular pleural thickening involving the major fissure on the left. Consideration could be made to short- term CT to document stability. 8. 4.1 x 2.9 cm infrarenal above aortic aneurysm. 9. Umbilical hernia containing colon. 10. Cholelithiasis. - Urine cultures with MRSA - Blood cultures, follow-up results - Lactic acid 1.0 - IV fluid for hydration - IV vancomycin, IV Zosyn - Consult urology for further recommendations. -S/P Cystoscopy with clot evacuation and change of suprapubic tube catheter; fulguration of bladder neck by Dr Armstrong urology on 08/21/17 Small Pneumothorax - Due to dental finding on the CT abdomen and pelvis - Keep O2 sat greater than 90%, O2 nasal cannula when necessary - Chest x-ray showed no infiltrates. Mild linear bibasilar atelectasis - If patient has increasing shortness of breath, will order stat x-ray - Incentive spirometer. Monitor respiratory status. Diabetes - On home insulin and Acarbose, glyburide - Will start insulin sliding scale, Levemir 15 units daily at bedtime, glyburide 5 mg daily - Monitor Accu-Cheks, monitor for hypoglycemia Hypothyroidism - Continue levothyroxinE BPH -Continue tamsulosin Generalized weakness - PT to treat and evAL DVT prop SCDs Code Status Full Code Discussed Condition With Patient, nurse Problem Qualifiers (1) UTI (urinary tract infection): Qualified Codes: N30.00 - Acute cystitis without hematuria (2) Sepsis: Qualified Codes: A41.9 - Sepsis, unspecified organism (3) Aortic aneurysm: Qualified Codes: I71.4 - Abdominal aortic aneurysm, without rupture (4) Pneumothorax: Qualified Codes: J93.11 - Primary spontaneous pneumothorax Mary Stephens MD Aug 23, 2017 11:32
[2017-08-23 12:00] VITALS: BP 137/61; PULSE 69; RESP 17; TEMP 95.7; O2SAT 97
[2017-08-23] MEDS: DOCUSATE SODIUM 50 MG/SENNA 8.6 MG TAB PO SCH ×2 (12:26→21:00)
--- NOTE | 2017-08-23 13:32 | MB ---
cc: HOLLAND SALAZAR MD DATE OF CONSULTATION: 08/23/2017 REQUESTING PHYSICIAN: Dr. Stephens. REASON FOR CONSULTATION: Suprapubic infection, urinary tract infection. MRSA. HISTORY OF PRESENT ILLNESS: This is a 89-year-old white male was admitted from a [facility]. The patient was brought to emergency department because of problems with urinary output through his suprapubic catheter. The patient was evaluated and found to have white blood cell count of 22,000 and workup was performed including a CT scan of the abdomen. The CT scan showed 07/09 showed significant bladder wall thickening and or development of mural thrombus and also bilateral hydronephrosis and hydroureter. There was also a cystic mass involving the upper pole of the left kidney which was reported to be stable. Cultures of the urine was performed and it came back with MRSA. Urinalysis showed large amount of leukocyte esterase and many white blood cell clumps and numerous white blood cells. This consultation is requested for antibiotic management. Blood cultures obtained on admission has no growth. The patient is currently awake and alert and comfortable watching TV. He denies chills, nausea, vomiting or shortness of breath. The patient tells me that his bladder catheter was placed 2 weeks ago. He was admitted in July 2017 and at that time had a UTI due to Shaila and bacteremia due to staph epidermidis. Upon review of the medical record. The suprapubic catheter was placed during the visit in July 2017. PAST MEDICAL HISTORY 1. Diabetes mellitus 2. Hypertension 3. Hyperlipidemia 4. benign prostatic hypertrophy. 5. Hiatal hernia 6. History of gastric ulcers. 7. History of recurrent urinary tract infection. 8. Bilateral cataract surgery 9. tonsillectomy. ALLERGIES HYDROCODONE MEDICATIONS 1. Vancomycin 2. Lactinex. 3. Lexapro. 4. DiaBeta. 5. Synthroid. 6. Prinivil. 7. Flomax 8. Janine-Colace. 9. Aspirin. 10. Aricept. 11. Hydrocortisone. 12. Insulin. 13. Toprol XL. 14. Piperacillin. 15. Tazobactam. SOCIAL HISTORY The patient is a resident of a [facility] facility. No tobacco or no alcohol. No illicit drugs. FAMILY HISTORY Noncontributory. REVIEW OF SYSTEMS Negative on 10-point review of systems. PHYSICAL EXAMINATION: IN GENERAL: The patient is a well-developed male who is awake and alert. He is conversing appropriately. VITAL SIGNS: Include temperature 95.4, Blood pressure 125/67, respirations 17, Heart rate 64. HEAD, EYES, EARS, NOSE, AND THROAT: The head is atraumatic Extraocular movements grossly intact, pupils reactive to light. No icterus. Oropharynx no visible lesions. NECK: Supple without adenopathy. LUNGS: Clear breath sounds. HEART: Irregular rate and rhythm. No audible murmurs. ABDOMEN: Bowel sounds present, flat, soft, nontender. Area of the suprapubic catheter appears clean and has no erythema. RECTAL: Not performed. EXTREMITIES: No clubbing or cyanosis or edema. SKIN: No rash. NEUROLOGIC: Nonfocal. PSYCHIATRIC: The patient calm and cooperative. LABORATORY DATA WBC 12.4, platelet count 409, 80% neutrophils, hemoglobin 10.5, creatinine 0.61, BUN 19, sodium one 04/. Chest x-ray Showed basilar atelectasis. IMPRESSION 1. Complicated urinary tract infection in patient with suprapubic catheter. Positive culture of MRSA. 2. Leukocytosis. White blood cell count improving. 3. The patient appears clinically stable with current treatment. RECOMMENDATIONS 1. Discontinue piperacillin/Tazobactam. 2. Continue vancomycin and monitor the sensitivity of MRSA. 3. If the patient remains stable he can be switched to oral Zyvox and complete a 5-7 days course of antibiotics if the blood cultures remained negative. Thank you this consultation. Further recommendations will be given if necessary. Upon followup of this patient. Holland Salazar MD FD/rishabh /10:32 AM /1:20 PM
[2017-08-23 16:00] VITALS: BP 155/72; PULSE 74; RESP 17; TEMP 95.2; O2SAT 96
[2017-08-23 20:00] VITALS: BP 138/66; PULSE 78; RESP 20; TEMP 96.3; O2SAT 95
[2017-08-23] MEDS: SODIUM CHLOR 0.9% 1000 ML INJ 1,000 ML IV SCH ×2 (21:57→22:05)
[2017-08-23] MEDS: INSULIN DETEMIR 100 UNITS/ML VIAL SQ SCH (22:04)
[2017-08-23] MEDS: DONEPEZIL HCL 5 MG TAB PO SCH (22:04)
[2017-08-24] VITALS: BP 167/83; PULSE 72; RESP 20; TEMP 96.5; O2SAT 94
[2017-08-24 08:00] VITALS: BP 159/81; PULSE 74; RESP 17; TEMP 95.6; O2SAT 95
[2017-08-24] MEDS: INSULIN ASPART SUPPLEMENTAL SCALE SQ SCH ×2 (08:00→11:43)
[2017-08-24] MEDS: TAMSULOSIN HCL 0.4 MG CAP PO SCH (08:52)
[2017-08-24] MEDS: DOCUSATE SODIUM 50 MG/SENNA 8.6 MG TAB PO SCH (08:52)
[2017-08-24] MEDS: LACTOBACILLUS ACIDOPHILUS TAB PO SCH (08:53)
[2017-08-24] MEDS: glyBURIDE 5 MG TAB PO SCH (08:53)
[2017-08-24] MEDS: METOPROLOL SUCCINATE 50 MG EXTENDED RELEASE TAB PO SCH (08:53)
[2017-08-24] MEDS: LISINOPRIL 10 MG TAB PO SCH (08:53)
[2017-08-24] MEDS: LEVOTHYROXINE SODIUM 100 MCG TAB PO SCH (08:54)
[2017-08-24] MEDS: ESCITALOPRAM OXALATE 10 MG TAB PO SCH (08:54)
[2017-08-24] MEDS: ASPIRIN 81 MG CHEW TAB CHEW SCH (08:55)
[2017-08-24] MEDS: VANCOMYCIN INJ 1,000 MG in SODIUM CHLOR 0.9% 250 ML INJ 250 ML IV SCH (08:57)
[2017-08-24] MEDS: SODIUM CHLORIDE 0.9% FLUSH 10 ML FLUSH IV FLUSH SCH (09:00)
[2017-08-24] MEDS: HYDROCORTISONE 10 MG TAB PO SCH (11:40)
[2017-08-24 12:00] VITALS: BP 174/83; PULSE 79; RESP 17; TEMP 95.9; O2SAT 92
--- NOTE | 2017-08-24 13:25 | HHI.PR ---
Subjective Remarks In bed, eating chicken. No fever or chills. Has some pain at times at the cath site, urine is clear. no blood in it. Patient denies any fever or chills. No n/v /d/c. Did not have a BM yet. Objective Vitals Vital Signs Date Time Temp Pulse Resp B/P (MAP) Pulse Ox O2 Delivery O2 Flow Rate FiO2 08/24/17 12:00 95.9 79 17 174/83 (113) 92 08/24/17 08:00 95.6 74 17 159/81 (107) 95 08/24/17 00:00 96.5 72 20 167/83 (111) 94 08/23/17 22:00 Nasal Cannula 2.00 08/23/17 20:00 96.3 78 20 138/66 (90) 95 08/23/17 18:38 Nasal Cannula 3.00 08/23/17 16:00 95.2 74 17 155/72 (99) 96 I/O 08/23/17 08/23/17 08/23/17 08/24/17 08/24/17 08/24/17 07:00 15:00 23:00 07:00 15:00 23:00 Intake Total 440 ml 730 ml 240 ml Output Total 900 ml 1075 ml 1750 ml Balance -460 ml -345 ml -1510 ml Intake Oral 240 ml 480 ml 240 ml IV Total 200 ml 250 ml Output Urine Total 900 ml 1075 ml 1750 ml # Bowel Movements 3 1 Result Diagram: 08/23/17 0714 08/23/17 0714 Imaging Last Impressions Chest X-Ray 08/22/17 0600 Signed Impressions: Service Date/Time: Tuesday, August 22, 2017 05:10 - CONCLUSION: 1. Basilar atelectasis. Findings similar to August 21. Vinnie Jessica MD Abdomen/Pelvis CT 08/21/17 0737 Signed Impressions: Service Date/Time: August 08:18 - CONCLUSION: 1. Interval placement of a suprapubic catheter which is within the urinary bladder. In the short interval from the prior study there has been either a significant wall thickening of the urinary bladder or development of mural thrombus. 2. Grossly a large prostate gland. 3. Bilateral hydronephrosis and hydroureter. This is similar to the prior study. 4. 5 cm complex cystic mass involving the upper pole the left kidney. This is stable. 5. Tiny bilateral pleural effusions which are smaller from the prior study. 6. Small anterior pneumothorax involving the left chest. 7. 6 mm pulmonary nodule multiple right lung base with nodular pleural thickening involving the major fissure on the left. Consideration could be made to short-term CT to document stability. 8. 4.1 x 2.9 cm infrarenal above aortic aneurysm. 9. Umbilical hernia containing colon. 10. Cholelithiasis. Nathaniel Holman Jr., MD Objective Remarks GENERAL: This is a pleasant skinny elderly male, well-nourished, well-developed patient, in no apparent distress. CARDIOVASCULAR: Regular rate and rhythm without murmurs, gallops, or rubs. RESPIRATORY: Clear to auscultation. No wheezes, rales, or rhonchi. GASTROINTESTINAL: Abdomen soft, non-tender, nondistended. Bowel sounds active 4. No guarding. : Suprapubic catheter in place with slight edema and erythema around. Barton catheter in place noted clear urine MUSCULOSKELETAL: Extremities without clubbing, cyanosis, or edema. NEUROLOGICAL: Awake and alert. Oriented to self. Motor and sensory grossly within normal limits. Normal speech. Procedures S/P Cystoscopy with clot evacuation and change of suprapubic tube catheter; fulguration of bladder neck by Dr Armstrong urology on 08/21/17 A/P Problem List: (1) UTI (urinary tract infection) ICD Code: N39.0 - Urinary tract infection, site not specified Status: Acute (2) Sepsis ICD Code: A41.9 - Sepsis, unspecified organism Status: Resolved (3) Aortic aneurysm ICD Code: I71.9 - Aortic aneurysm of unspecified site, without rupture Status: Acute (4) Pneumothorax ICD Code: J93.9 - Pneumothorax, unspecified Status: Acute (5) Dehydration ICD Code: E86.0 - Dehydration Status: Acute (6) Hypertension ICD Code: I10 - Essential (primary) hypertension Status: Chronic (7) Diabetes mellitus ICD Code: E11.9 - Type 2 diabetes mellitus without complications Status: Chronic Assessment and Plan Patient is an 89-year-old male with primary medical history of BPH, DM, HTN, frequent UTIs who came in from a [facility] for poor urine output on his suprapubic catheter. Sepsis, MRSA UTI - suspected since patient has suprapubic catheter, prior history of recurrent UTIs Suprapubic catheterization secondary to BPH. S/P Cystoscopy with clot evacuation and change of suprapubic tube catheter; fulguration of bladder neck by Dr Armstrong urology on 08/21/17 - WBC 22.5, heart rate 96 on admission, Monitor trend - CT of the abdomen and pelvis showed 1. Interval placement of a suprapubic catheter which is within the urinary bladder. In the short interval from the prior study there has been either a significant wall thickening of the urinary bladder or development of mural thrombus. 2. Grossly a large prostate gland. 3. Bilateral hydronephrosis and hydroureter. This is similar to the prior study. 4. 5 cm complex cystic mass involving the upper pole the left kidney. This is stable. 5. Tiny bilateral pleural effusions which are smaller from the prior study. 6. Small anterior pneumothorax involving the left chest. 7. 6 mm pulmonary nodule multiple right lung base with nodular pleural thickening involving the major fissure on the left. Consideration could be made to short- term CT to document stability. 8. 4.1 x 2.9 cm infrarenal above aortic aneurysm. 9. Umbilical hernia containing colon. 10. Cholelithiasis. - Urine cultures with MRSA - Blood cultures, follow-up results - Lactic acid 1.0 - IV fluid for hydration - IV vancomycin, DCd IV Zosyn. Seen by ID appreciate recommendation to be DC on zyvixx - Consult urology for further recommendations. -S/P Cystoscopy with clot evacuation and change of suprapubic tube catheter; fulguration of bladder neck by Dr Armstrong urology on 08/21/17 Small Pneumothorax - Due to dental finding on the CT abdomen and pelvis - Keep O2 sat greater than 90%, O2 nasal cannula when necessary - Chest x-ray showed no infiltrates. Mild linear bibasilar atelectasis - If patient has increasing shortness of breath, will order stat x-ray - Incentive spirometer. Monitor respiratory status. Diabetes - On home insulin and Acarbose, glyburide - Will start insulin sliding scale, Levemir 15 units daily at bedtime, glyburide 5 mg daily - Monitor Accu-Cheks, monitor for hypoglycemia Hypothyroidism - Continue levothyroxinE BPH -Continue tamsulosin Generalized weakness - PT to treat and evAL DVT prop SCDs Code Status Full Code Discussed Condition With Patient, nurse, ID specialist Dr Hood, patient daughter Lola NASCIMENTO patient back to [facility]. Problem Qualifiers (1) UTI (urinary tract infection): Qualified Codes: N30.00 - Acute cystitis without hematuria (2) Sepsis: Qualified Codes: A41.9 - Sepsis, unspecified organism (3) Aortic aneurysm: Qualified Codes: I71.4 - Abdominal aortic aneurysm, without rupture (4) Pneumothorax: Qualified Codes: J93.11 - Primary spontaneous pneumothorax Mary Stephens MD Aug 24, 2017 13:25
[2017-08-24] MEDS ORDERED: ZYVO600T PO (13:27)
--- NOTE | 2017-08-24 13:27 | HHI.DS ---
Discharge Summary Admission Date Aug 21, 2017 at 10:04 Discharge Date: Aug 24, 2017 Admitting Diagnosis sepsis, cystitis, pneumothorax (1) UTI (urinary tract infection) ICD Code: N39.0 - Urinary tract infection, site not specified Status: Acute (2) Sepsis ICD Code: A41.9 - Sepsis, unspecified organism Status: Resolved (3) Aortic aneurysm ICD Code: I71.9 - Aortic aneurysm of unspecified site, without rupture Status: Acute (4) Pneumothorax ICD Code: J93.9 - Pneumothorax, unspecified Status: Acute (5) Dehydration ICD Code: E86.0 - Dehydration Status: Acute (6) Hypertension ICD Code: I10 - Essential (primary) hypertension Status: Chronic (7) Diabetes mellitus ICD Code: E11.9 - Type 2 diabetes mellitus without complications Status: Chronic (8) Suprapubic catheter dysfunction ICD Code: T83.010A - Breakdown (mechanical) of cystostomy catheter, initial encounter Procedures S/P Cystoscopy with clot evacuation and change of suprapubic tube catheter; fulguration of bladder neck by Dr Armstrong urology on 08/21/17 Brief History - From Admission Patient is an 89-year-old male with primary medical history of BPH, DM, HTN, frequent UTIs who came in from a correction for poor urine output on his suprapubic catheter. CT of the pelvis and abdomen which showed a suprapubic catheter placement is within the urinary bladder but an incidental finding of small anterior pneumothorax involving the left chest, a 6 mm pulmonary nodule multiple right lung base with nodular pleural thickening involving the major fissure on the left. WBC elevated 22.8, heart rate 96 when patient came in. Patient seen and examined today. Laying in bed. Confused but able to follow commands and answer some questions. Does not know how he got to the hospital. Oriented to self, knows that he is in [place], does not know what hospital nor the date and time. Denies chest pain, palpitations. Denies any fevers, chills, nausea, vomiting, diarrhea. Denies any abdominal pain. Denies any shortness of breath or dyspnea. On 2 L nasal cannula right now. CBC/BMP: 08/23/17 0714 08/23/17 0714 Significant Findings Laboratory Tests Test 08/21/17 15:46 08/22/17 17:32 08/23/17 07:14 Urine Color DARK-BROWN (YELLW/STRAW) Urine Turbidity CLOUDY (CLEAR) Urine Protein 100 mg/dL (NEG-TRACE) Urine Occult Blood LARGE (NEG) Urine Nitrite POS (NEG) Urine Leukocyte Esterase LARGE (NEG) Urine RBC 120 /hpf (0-3) Urine WBC Clumps MANY (NONE) Urine Mucus FEW /lpf (OCC) White Blood Count 14.4 TH/MM3 (4.0-11.0) 12.4 TH/MM3 (4.0-11.0) Red Blood Count 3.91 MIL/MM3 (4.50-5.90) 3.71 MIL/MM3 (4.50-5.90) Hemoglobin 11.1 GM/DL (13.0-17.0) 10.5 GM/DL (13.0-17.0) Hematocrit 34.3 % (39.0-51.0) 32.3 % (39.0-51.0) Neutrophils (%) (Auto) 92.4 % (16.0-70.0) 80.9 % (16.0-70.0) Lymphocytes (%) (Auto) 5.2 % (9.0-44.0) Neutrophils # (Auto) 13.4 TH/MM3 (1.8-7.7) 10.0 TH/MM3 (1.8-7.7) Lymphocytes # (Auto) 0.8 TH/MM3 (1.0-4.8) Blood Urea Nitrogen 21 MG/DL (7-18) 19 MG/DL (7-18) Random Glucose 409 MG/DL (74-106) 211 MG/DL (74-106) Total Protein 5.7 GM/DL (6.4-8.2) 5.3 GM/DL (6.4-8.2) Calcium Level 7.2 MG/DL (8.5-10.1) 7.4 MG/DL (8.5-10.1) Potassium Level 3.4 MEQ/L (3.5-5.1) 3.2 MEQ/L (3.5-5.1) Protein Corrected Calcium 7.9 MG/DL (8.5-10.1) 8.4 MG/DL (8.5-10.1) Prealbumin 6 MG/DL (20-40) Imaging Last Impressions Chest X-Ray 08/22/17 0600 Signed Impressions: Service Date/Time: Tuesday, August 22, 2017 05:10 - CONCLUSION: 1. Basilar atelectasis. Findings similar to August 21. Vinnie Jessica MD Abdomen/Pelvis CT 08/21/17 0737 Signed Impressions: Service Date/Time: August 08:18 - CONCLUSION: 1. Interval placement of a suprapubic catheter which is within the urinary bladder. In the short interval from the prior study there has been either a significant wall thickening of the urinary bladder or development of mural thrombus. 2. Grossly a large prostate gland. 3. Bilateral hydronephrosis and hydroureter. This is similar to the prior study. 4. 5 cm complex cystic mass involving the upper pole the left kidney. This is stable. 5. Tiny bilateral pleural effusions which are smaller from the prior study. 6. Small anterior pneumothorax involving the left chest. 7. 6 mm pulmonary nodule multiple right lung base with nodular pleural thickening involving the major fissure on the left. Consideration could be made to short-term CT to document stability. 8. 4.1 x 2.9 cm infrarenal above aortic aneurysm. 9. Umbilical hernia containing colon. 10. Cholelithiasis. Nathaniel Holman Jr., MD PE at Discharge GENERAL: This is a pleasant skinny elderly male, well-nourished, well-developed patient, in no apparent distress. CARDIOVASCULAR: Regular rate and rhythm without murmurs, gallops, or rubs. RESPIRATORY: Clear to auscultation. No wheezes, rales, or rhonchi. GASTROINTESTINAL: Abdomen soft, non-tender, nondistended. Bowel sounds active 4. No guarding. : Suprapubic catheter in place with slight edema and erythema around. Barton catheter in place noted clear urine MUSCULOSKELETAL: Extremities without clubbing, cyanosis, or edema. NEUROLOGICAL: Awake and alert. Oriented to self. Motor and sensory grossly within normal limits. Normal speech. Hospital Course Patient is an 89-year-old male with primary medical history of BPH, DM, HTN, frequent UTIs who came in from a correction for poor urine output on his suprapubic catheter. Patient with Sepsis on admission, MRSA UTI - suspected since patient has suprapubic catheter, prior history of recurrent UTIs. Patient received OIV antibiotic, vanco discharge on zyvoxx per ID recommendations. Suprapubic catheterization secondary to BPH. S/P Cystoscopy with clot evacuation and change of suprapubic tube catheter; fulguration of bladder neck by Dr Armstrong urology on 08/21/17. Urine cleared up after this. Patient also with prot luciana malnutrition. prealbum 6, added dietary supplement, patient has good appetite and was noted eating all his food. Improved , was discharged to SNF in stable condition to follow up as OP with PCP and consultants. Sepsis, MRSA UTI - suspected since patient has suprapubic catheter, prior history of recurrent UTIs Suprapubic catheterization secondary to BPH. S/P Cystoscopy with clot evacuation and change of suprapubic tube catheter; fulguration of bladder neck by Dr Armstrong urology on 08/21/17 - WBC 22.5, heart rate 96 on admission, Monitor trend - CT of the abdomen and pelvis showed 1. Interval placement of a suprapubic catheter which is within the urinary bladder. In the short interval from the prior study there has been either a significant wall thickening of the urinary bladder or development of mural thrombus. 2. Grossly a large prostate gland. 3. Bilateral hydronephrosis and hydroureter. This is similar to the prior study. 4. 5 cm complex cystic mass involving the upper pole the left kidney. This is stable. 5. Tiny bilateral pleural effusions which are smaller from the prior study. 6. Small anterior pneumothorax involving the left chest. 7. 6 mm pulmonary nodule multiple right lung base with nodular pleural thickening involving the major fissure on the left. Consideration could be made to short- term CT to document stability. 8. 4.1 x 2.9 cm infrarenal above aortic aneurysm. 9. Umbilical hernia containing colon. 10. Cholelithiasis. - Urine cultures with MRSA - Blood cultures, follow-up results - Lactic acid 1.0 - IV fluid for hydration - IV vancomycin, DCd IV Zosyn. Seen by ID appreciate recommendation to be DC on zyvixx - Consult urology for further recommendations. -S/P Cystoscopy with clot evacuation and change of suprapubic tube catheter; fulguration of bladder neck by Dr Armstrong urology on 08/21/17 Small Pneumothorax - Due to dental finding on the CT abdomen and pelvis - Keep O2 sat greater than 90%, O2 nasal cannula when necessary - Chest x-ray showed no infiltrates. Mild linear bibasilar atelectasis - If patient has increasing shortness of breath, will order stat x-ray - Incentive spirometer. Monitor respiratory status. Diabetes - On home insulin and Acarbose, glyburide - Will start insulin sliding scale, Levemir 15 units daily at bedtime, glyburide 5 mg daily - Monitor Accu-Cheks, monitor for hypoglycemia Hypothyroidism - Continue levothyroxinE BPH -Continue tamsulosin Generalized weakness - PT to treat and evAL DVT prop SCDs Code Status Full Code Discussed Condition With Patient, nurse, ID specialist Dr Hood, patient daughter Lola NASCIMENTO patient back to [facility]. Pt Condition on Discharge: Stable Discharge Disposition: Discharge to SNF Discharge Time: > 30 minutes Discharge Instructions DIET: Follow Instructions for: Heart Healthy Diet, Diabetic Diet Activities you can perform: Regular-No Restrictions Follow up Referrals: PCP Follow-up - 2-3 Days Urology - 1 Week with Shaheen Armstrong DO New Medications: Lactobacillus Acidophilus (Lactinex) 1 Chew 1 TAB CHEW DAILY for Nutritional Supplement for 30 Days, #30 TAB 0 Refills Linezolid (Zyvox) 600 Mg Tab 600 MG PO Q12H for Infection for 7 Days, #14 TAB 0 Refills Continued Medications: Acarbose (Acarbose) 50 Mg Tab 50 MG PO AC DINNER for Blood Sugar Management, #30 TAB 0 Refills Aspirin (Aspirin) 81 Mg Chew 81 MG CHEW BID, TAB 0 Refills Donepezil HCl (Aricept) 5 Mg Tablet 5 MG PO HS Escitalopram (Lexapro) 5 Mg Tab 5 MG PO DAILY, #30 TAB 0 Refills Glyburide (Glyburide) 5 Mg Tab 5 MG PO DAILY for Blood Sugar Management, TAB 0 Refills Take with meals at the same time each day Hydrocortisone (Hydrocortisone) 5 Mg Tab 5 MG PO BID, TAB 0 Refills Take with food to decrease GI upset Insulin Detemir Inj (Levemir Inj) 1,000 unit/ 10 ML Vial 15 UNITS SQ HS for diabetes for 30 Days, INJECTION 0 Refills Do not mix with any other Insulin. Insulin Human Regular Inj (Novolin R Inj) 1,000 Unit/10 Ml Vial 0 UNITS SQ LOCOMOTIVE REPAIRER DIESEL PRN for SEE PROTOCOL TABLE for 7 Days, INJECTION 0 Refills Levothyroxine (Synthroid) 100 Mcg Tab 100 MCG PO DAILY for Thyroid, #30 TAB 0 Refills Lisinopril (Lisinopril) 10 Mg Tab 10 MG PO DAILY, TAB 0 Refills Metoprolol Succinate ER 24 HR (Metoprolol Succinate ER 24 HR) 50 Mg Tab 50 MG PO BID, #30 TAB 0 Refills Multiple Vitamins W/ Minerals (Preservision Areds) 1 Cap Cap BID Tamsulosin (Flomax) 0.4 Mg Cap 0.4 MG PO DAILY for urinary retention for 30 Days, #30 CAP 0 Refills Mary Stephens MD Aug 24, 2017 13:27
[2017-08-24] MEDS ORDERED: LACTCHW3 CHEW (13:29)
[2017-08-24] MEDS ORDERED: CALCIUM CARBONATE 500 MG CHEWABLE TAB CHEW SCH (14:15)
== END 2017-08-24 15:44 | DRG 668 ==
LOC: NEPC 06:33 → NEDA 10:04 → N07A 14:39
PROVIDERS: ADMIT Hospitalist; ATTEND Hospitalist
PROC: 0TCB8ZZ Extirpation of Matter from Bladder, Via Natural or Artificial Opening Endoscopic (ICD-10-PCS; 2017-08-22)
PROC: 0T9B80Z Drainage of Bladder with Drainage Device, Via Natural or Artificial Opening Endoscopic (ICD-10-PCS; 2017-08-22)
PROC: 0T5C8ZZ Destruction of Bladder Neck, Via Natural or Artificial Opening Endoscopic (ICD-10-PCS; principal; 2017-08-22 07:39)
DX: T83.511A Infection and inflammatory reaction due to indwelling urethral catheter, initial encounter (principal); A41.9 Sepsis, unspecified organism; J93.11 Primary spontaneous pneumothorax; N13.30 Unspecified hydronephrosis; F03.90 Unspecified dementia, unspecified severity, without behavioral disturbance, psychotic disturbance, mood disturbance, and anxiety; E11.9 Type 2 diabetes mellitus without complications; I10 Essential (primary) hypertension; B95.62 Methicillin resistant Staphylococcus aureus infection as the cause of diseases classified elsewhere; N39.0 Urinary tract infection, site not specified; E86.0 Dehydration; I71.4 Abdominal aortic aneurysm, without rupture; N40.1 Benign prostatic hyperplasia with lower urinary tract symptoms; R91.1 Solitary pulmonary nodule; E78.5 Hyperlipidemia, unspecified; E03.9 Hypothyroidism, unspecified; F32.9 Major depressive disorder, single episode, unspecified; K59.00 Constipation, unspecified; Z79.4 Long term (current) use of insulin
CPT/HCPCS: 71010; 74176; 80048; 80053; 81001; 82948; 83605; 84134; 84155; 85025; 86403; 87040; 87086; 87147; 87186; 96365; 96367; J0131; J1100; J1815; J2370; J2405; J2543; J3370; J7030; J7050

== ENCOUNTER 2017-10-12 09:14 | Inpatient (IN) | payer MEDICARE, BC ==
[2017-10-12] VITALS (7 sets, daily range): BP systolic 138–181; BP diastolic 78–96; PULSE 102–143; RESP 18–22; TEMP 97.1–98.1; O2SAT 91–96
[~2017-10-12] VITALS: Ht 180.3 cm; Wt 73.5 kg
[~2017-10-12 09:14] MED LIST changes: +ARIC5TAB6 PO; +ASPI-516 CHEW; -ASPI81CH CHEW; -DIFL200T PO; +LACTCHW3 CHEW; +LEVO.1 PO; +LEXA5TAB PO; +METO1TAB9 PO; -METO50TA11 PO; +SILV1CRE20 TOPICAL; +ZYVO600T PO
--- NOTE | 2017-10-12 09:44 | PD ---
HPI Chief Complaint: Cardiac Complaint Time Seen by Provider: 09:32 Travel History International Travel<30 days: No Contact w/Intl Traveler<30days: No Traveled to known affect area: No History of Present Illness HPI Send 89-year-old man who presents to the emergency department by EMS. History is obtained from the patient, but also from his daughter, Lola, [phone]. Patient is multiple medical problems. Over the past 6 months or so he's had worsening recurrent infections including recurrent urinary tract infections , C. difficile, and MRSA UTI. He had developed bladder outlet obstruction from BPH requiring a suprapubic catheter. He's had recurrent urinary tract infections despite the suprapubic catheter. He also developed C. difficile which was treated. He's been hospitalized several times. He is been trying to remain at home. He's been at home for the past several weeks. He has home health care that comes out for a total of 8 hours a day. His daughter reports that over the past couple weeks she's gotten progressively more weak, lethargic , confused. He's lost a lot of weight over the past 6 months or so. He really is been too weak to walk recently. His doctor started him on Cipro yesterday after they did a home test for nitrites which was positive. He's had worsening confusion, hyperglycemia, and weakness and so his daughter had the home health aid send him to the emergency department today. History Past Medical History Narrative Medical DM HTN HLD Frequent UTIs BPH Hiatal hernia History of gastric ulcers History of A. fib Social History Alcohol Use: No Tobacco Use: No Allergies-Medications (Allergen,Severity, Reaction): Coded Allergies: adhesive tape (Verified Allergy, Severe, Hives, 10/12/17) hydrocodone (Verified Allergy, Severe, HIVES, 10/12/17) Reported Meds & Prescriptions Reported Meds & Active Scripts Active Silvadene Topical (Silver Sulfadiazine) 1 % Cream 1 Applic TOPICAL DAILY PRN Lactinex (Lactobacillus Acidophilus) 1 Chew 1 Tab CHEW DAILY 30 Days Flomax (Tamsulosin HCl) 0.4 Mg Cap 0.4 Mg PO DAILY 30 Days Reported Cipro (Ciprofloxacin HCl) 500 Mg Tab 500 Mg PO BID Klor-Con M20 (Potassium Chloride Microencaps) 20 Meq Tab 20 Meq PO DAILY Metformin ER (Metformin HCl) 500 Mg Leanne 500 Mg PO BID With evening meal Synthroid (Levothyroxine Sodium) 100 Mcg Tab 100 Mcg PO DAILY Lexapro (Escitalopram Oxalate) 5 Mg Tab 5 Mg PO DAILY Aricept (Donepezil HCl) 5 Mg Tablet 5 Mg PO HS Glyburide 5 Mg Tab 5 Mg PO DAILY Take with meals at the same time each day Preservision Areds (Multiple Vitamins W/ Minerals) 1 Cap Cap BID Aspirin 81 Mg Chew 81 Mg CHEW BID Lisinopril 10 Mg Tab 10 Mg PO DAILY Metoprolol Succinate ER 24 HR (Metoprolol Succinate) 50 Mg Tab 50 Mg PO DAILY Acarbose 50 Mg Tab 50 Mg PO TID THREE TIMES DAILY WITH MEALS FOR BSM Hydrocortisone 5 Mg Tab 2.5 Mg PO DAILY Take with food to decrease GI upset Review of Systems Except as stated in HPI: all other systems reviewed are Neg Physical Exam Narrative GENERAL: Elderly 89-year-old man, no acute distress. SKIN: Focused skin assessment warm/dry. HEAD: Atraumatic. Normocephalic. EYES: Pupils equal and round. No scleral icterus. No injection or drainage. ENT: No nasal bleeding or discharge. Mucous membranes pink and moist. NECK: Trachea midline. No JVD. CARDIOVASCULAR: Heart rate a little bit rapid, little bit irregular. No murmur. RESPIRATORY: No accessory muscle use. Clear to auscultation. Breath sounds equal bilaterally. GASTROINTESTINAL: Admits flat. Is an extremely large ventral hernia that easily reducible. Superpubic catheter is in place. There is no tenderness or other distention. MUSCULOSKELETAL: No obvious deformities. Decreased muscle bulk. NEUROLOGICAL: Awake and alert. Some mild confusion. No obvious cranial nerve deficits. Motor grossly within normal limits. Normal speech. Data Data Last Documented VS Vital Signs Date Time Temp Pulse Resp B/P (MAP) Pulse Ox O2 Delivery O2 Flow Rate FiO2 10/12/17 09:26 106 10/12/17 09:20 98.0 19 138/79 (98) 93 Orders Orders Complete Blood Count With Diff (10/12/17 09:34) Comprehensive Metabolic Panel (10/12/17 09:34) Urinalysis - C+S If Indicated (10/12/17 09:34) Iv Access Insert/Monitor (10/12/17 09:34) Urinary Catheter Insert/Apply (10/12/17 09:34) Sodium Chlor 0.9% 1000 Ml Inj (Ns 1000 M (10/12/17 10:00) Consult Palliative Care (10/12/17 ) (Hub Use Only)Inp Phy Cons/Ref (10/12/17 ) Urine Culture (10/12/17 10:00) Vancomycin Inj (Vancomycin Inj) (10/12/17 11:30) Gentamicin Inj (Gentamicin Inj) (10/12/17 11:30) Electrocardiogram (10/12/17 09:25) Admit Order (Ed Use Only) (10/12/17 ) Labs Laboratory Tests Test 10/12/17 09:31 10/12/17 10:00 White Blood Count 15.5 TH/MM3 Red Blood Count 4.49 MIL/MM3 Hemoglobin 12.8 GM/DL Hematocrit 39.4 % Mean Corpuscular Volume 87.8 FL Mean Corpuscular Hemoglobin 28.4 PG Mean Corpuscular Hemoglobin Concent 32.4 % Red Cell Distribution Width 18.2 % Platelet Count 389 TH/MM3 Mean Platelet Volume 7.9 FL Neutrophils (%) (Auto) 83.0 % Lymphocytes (%) (Auto) 10.6 % Monocytes (%) (Auto) 6.1 % Eosinophils (%) (Auto) 0.1 % Basophils (%) (Auto) 0.2 % Neutrophils # (Auto) 12.9 TH/MM3 Lymphocytes # (Auto) 1.6 TH/MM3 Monocytes # (Auto) 0.9 TH/MM3 Eosinophils # (Auto) 0.0 TH/MM3 Basophils # (Auto) 0.0 TH/MM3 CBC Comment DIFF FINAL Differential Comment Blood Urea Nitrogen 26 MG/DL Creatinine 0.67 MG/DL Random Glucose 332 MG/DL Total Protein 6.5 GM/DL Albumin 2.0 GM/DL Calcium Level 7.8 MG/DL Alkaline Phosphatase 85 U/L Aspartate Amino Transf (AST/SGOT) 9 U/L Alanine Aminotransferase (ALT/SGPT) 11 U/L Total Bilirubin 0.4 MG/DL Sodium Level 135 MEQ/L Potassium Level 3.5 MEQ/L Chloride Level 101 MEQ/L Carbon Dioxide Level 25.6 MEQ/L Anion Gap 8 MEQ/L Estimat Glomerular Filtration Rate 112 ML/MIN Urine Color YELLOW Urine Turbidity CLOUDY Urine pH 6.0 Urine Specific [place] 1.017 Urine Protein 30 mg/dL Urine Glucose (UA) 1000 mg/dL Urine Ketones 10 mg/dL Urine Occult Blood MOD Urine Nitrite NEG Urine Bilirubin NEG Urine Urobilinogen LESS THAN 2.0 MG/DL Urine Leukocyte Esterase LARGE Urine RBC 168 /hpf Urine WBC /hpf Urine WBC Clumps OCC Urine Bacteria FEW /hpf Urine Mucus FEW /lpf Microscopic Urinalysis Comment CATH-CULTURE IND MDM Medical Decision Making Medical Screen Exam Complete: Yes Emergency Medical Condition: Yes Interpretation(s) My review of EKG: A. fib, rate of 112, right bundle branch block, left axis deviation. LABS: CBC is remarkable for leukocytosis. CMP shows elevated blood sugar Urine shows glucose, significant pyuria Differential Diagnosis Infection, UTI, electrolyte abnormality, dehydration, failure to thrive, other Narrative Course Medical decision-making the parents a 11-year-old man who presents emergency department with sounds like worsening UTI symptoms. Overall the patient's clinical course is one of significance urination over the past 6 months or so before he loss, recurrent infections, increased ability. Patient at this point cannot ambulate, is confused, is requiring significant assistance. An extensive discussion with the patient's daughter. She is also concerned about patient's clinical course. She is a retired nurse. Given the patient's age, waning functional status, recurrent infections, patient may be a candidate for hospice. She is amenable to having the patient evaluated for palliative care for offers for insight for prognosis, as well as possible bite hospice eligibility. Diagnosis Primary Impression: UTI (urinary tract infection) Admitting Information Admitting Physician Requests: Admit Checo Moreno MD Oct 12, 2017 09:43
[2017-10-12 09:48] LABS: AUTOMATED NEUTROPHIL # 12.9 TH/MM3 (1.8-7.7); BASOPHIL % 0.2 % (0.0-2.0); EOSINOPHIL % 0.1 % (0.0-4.0); HEMATOCRIT 39.4 % (39.0-51.0); HEMO FLAGS DIFF FINAL; LYMPH % 10.6 % (9.0-44.0); LYMPHOCYTE # 1.6 TH/MM3 (1.0-4.8); MEAN CELL VOLUME 87.8 FL (80.0-100.0); MEAN CORPUSCULAR HEMOGLOBIN 28.4 PG (27.0-34.0); MEAN CORPUSCULAR HGB CONC 32.4 % (32.0-36.0); MONO % 6.1 % (0.0-8.0); PLATELET COUNT 389 TH/MM3 (150-450); RED BLOOD COUNT 4.49 MIL/MM3 (4.50-5.90); RED CELL DISTRIBUTION WIDTH 18.2 % (11.6-17.2); WHITE BLOOD COUNT 15.5 TH/MM3 (4.0-11.0)
[2017-10-12] MEDS ORDERED: SODIUM CHLOR 0.9% 1000 ML INJ 1,000 ML IV ONE (10:00)
[2017-10-12 10:07] LABS: ANION GAP 8 MEQ/L (5-15); AST (GOT) 9 U/L (15-37); BICARBONATE 25.6 MEQ/L (21.0-32.0); BLOOD UREA NITROGEN 26 MG/DL (7-18); CHLORIDE 101 MEQ/L (98-107); GLOMERULAR FILTRATION RATE 112 ML/MIN (>89); POTASSIUM 3.5 MEQ/L (3.5-5.1); SODIUM (NA) 135 MEQ/L (136-145)
[2017-10-12 10:08] LABS: ALT (GPT) 11 U/L (12-78)
[2017-10-12] MEDS ORDERED: METF500T4 PO (10:09)
[2017-10-12] MEDS ORDERED: KLOR20TA3 PO (10:09)
[2017-10-12] MEDS ORDERED: CIPR-9 PO (10:09)
[2017-10-12 10:10] LABS: ALKALINE PHOSPHATASE 85 U/L (45-117); TOTAL BILIRUBIN ADULT 0.4 MG/DL (0.2-1.0)
[2017-10-12 11:17] LABS: BACTERIA, URINE FEW /hpf; BLOOD, URINE MOD (NEG); COMMENT (UR) CATH-CULTURE IND; CULTURE IF INDICATED CATH CULTURE IND; GLUCOSE,URINE 1000 mg/dL (NEG); KETONE, URINE 10 mg/dL (NEG); MUCUS URINE FEW /lpf (OCC); NITRITE,URINE NEG (NEG); URINE COLOR YELLOW (YELLW/STRAW)
[2017-10-12] MEDS ORDERED: VANCOMYCIN INJ 1,500 MG in SODIUM CHLORID 0.9% 500 ML INJ 500 ML IV ONE (11:30)
[2017-10-12] MEDS ORDERED: GENTAMICIN INJ 80 MG in SODIUM CHLORIDE 0.9% INJ 100 ML IV ONE (11:30)
[2017-10-12] MEDS ORDERED: NALOXONE HCL 0.4 MG/ML AMP IV PUSH PRN (12:00)
[2017-10-12] MEDS ORDERED: GLUCAGON 1 MG/ML VIAL OTHER PRN (12:00)
[2017-10-12] MEDS ORDERED: ACETAMINOPHEN 325 MG TAB PO PRN ×2 (12:00)
[2017-10-12] MEDS ORDERED: SODIUM CHLORIDE 0.9% FLUSH 10 ML FLUSH IV FLUSH PRN (12:00)
[2017-10-12] MEDS ORDERED: ONDANSETRON HCL 4 MG/2 ML VIAL IVP PRN (12:00)
[2017-10-12] MEDS ORDERED: MAGNESIUM HYDROXIDE SUSP 30 ML CUP PO PRN (12:00)
[2017-10-12] MEDS ORDERED: Vancomycin Consult Pharmacy 1 EA OTHER PRN (12:00)
[2017-10-12] MEDS ORDERED: DEXTROSE 50% IN WATER 50 ML VIAL(D50) IV PUSH PRN (12:00)
[2017-10-12] MEDS: SODIUM CHLOR 0.9% 1000 ML INJ 1,000 ML IV SCH (12:09)
[2017-10-12] MEDS: INSULIN ASPART SUPPLEMENTAL SCALE SQ SCH ×3 (12:43→20:46)
--- NOTE | 2017-10-12 13:02 | HHI.HP ---
[facility] Chris Leblanc MD Admission Diagnosis UTI, weakness Diagnoses: Chief Complaint: confusion, weakness, UTI Travel History International Travel<30 Days: No Contact w/Intl Traveler <30 Da: No Traveled to Known Affected Are: No Sepsis Criteria SIRS Criteria (2 or more): Heart rate over 90, WBC > 22500, < 4000 or > 10% bands Sepsis Criteria (SIRS+source): Infect source susp/known Criteria Outcome: Meets sepsis criteria History of Present Illness Written by Jennifer Cannon, acting as scribe for Dr. Castro on 10/12/17 at 13: 02. 89-year-old male with history of DM, HTN, HLD, BPH, obstructive uropathy s/p suprapubic catheter, recurrent UTIs, presents from home with increasing confusion, weakness, and concern for UTI. Patient is currently awake, alert, oriented to person, place, and month/year; however has difficulty recalling all events leading up to his admission. The patient is seen with a family friend at bedside who assists with the history. Earlier today the patient's daughter Lola was at bedside and discussed with the ER physician as well. Recently the patient has been treated for multiple infections including MRSA UTI and C.difficile. Reportedly over the past week the patient has become more lethargic , confused, and unable to ambulate. An at-home urinalysis was performed which revealed a UTI and he was started on Ciprofloxacin yesterday by his PCP. However , today the patient continued to worsen therefore the daughter requested the [facility] aide send him to the ER today. The patient denies any recent fevers, chills , headache, lightheadedness, chest pain, palpitations, cough, shortness of breath, abdominal pain, or diarrhea. The family friend at bedside states the patient has been hallucinating and not making much sense which is much worse than his baseline. She also reports that he hasn't been eating well at home. He currently lives alone, and has home health care nursing for 4 hours a day. The family friend is concerned that he can no longer care for himself and likely needs 24hr care. The daughter also discussed with ER physician regarding possibility of hospice. Review of Systems Except as stated in HPI: all other systems reviewed are Neg Past Family Social History Past Medical History DM HTN HLD BPH obstructive uropathy s/p suprapubic catheter recurrent UTIs Hiatal hernia gastric ulcers hypothyroidism Past Surgical History Cataract extractions Tonsillectomy Cystoscopy with suprapubic catheter placement Gastric perforation repair Reported Medications Silvadene Topical (Silver Sulfadiazine) 1 % Cream 1 Applic TOPICAL DAILY PRN Lactinex (Lactobacillus Acidophilus) 1 Chew 1 Tab CHEW DAILY 30 Days Flomax (Tamsulosin HCl) 0.4 Mg Cap 0.4 Mg PO DAILY 30 Days Cipro (Ciprofloxacin HCl) 500 Mg Tab 500 Mg PO BID Klor-Con M20 (Potassium Chloride Microencaps) 20 Meq Tab 20 Meq PO DAILY Metformin ER (Metformin HCl) 500 Mg Leanne 500 Mg PO BID With evening meal Synthroid (Levothyroxine Sodium) 100 Mcg Tab 100 Mcg PO DAILY Lexapro (Escitalopram Oxalate) 5 Mg Tab 5 Mg PO DAILY Aricept (Donepezil HCl) 5 Mg Tablet 5 Mg PO HS Glyburide 5 Mg Tab 5 Mg PO DAILY Take with meals at the same time each day Preservision Areds (Multiple Vitamins W/ Minerals) 1 Cap Cap BID Aspirin 81 Mg Chew 81 Mg CHEW BID Lisinopril 10 Mg Tab 10 Mg PO DAILY Metoprolol Succinate ER 24 HR (Metoprolol Succinate) 50 Mg Tab 50 Mg PO DAILY Acarbose 50 Mg Tab 50 Mg PO TID THREE TIMES DAILY WITH MEALS FOR BSM Hydrocortisone 5 Mg Tab 2.5 Mg PO DAILY Take with food to decrease GI upset Allergies: Coded Allergies: adhesive tape (Verified Allergy, Severe, Hives, 10/12/17) hydrocodone (Verified Allergy, Severe, HIVES, 10/12/17) Active Ordered Medications Current Medications Medications (Trade) Dose Ordered Sig/Shanel Route Start Time Stop Time Status Last Admin Vancomycin HCl 1500 mg/Sodium Chloride 515 ml @ 257.5 mls/ hr ONCE ONCE IV 10/12/17 11:30 10/12/17 13:29 (D50w (Vial) Inj) 50 ml UNSCH PRN IV PUSH 10/12/17 12:00 (Glucagon Inj) 1 mg UNSCH PRN OTHER 10/12/17 12:00 (NovoLOG SUPPLEMENTAL SCALE) 1 ACHS SLIDING SCALE SQ 10/12/17 12:00 10/12/17 12:43 Sodium Chloride 1,000 ml @ 70 mls/hr [id number] IV 10/12/17 11:52 10/12/17 12:09 (NS Flush) 2 ml UNSCH PRN IV FLUSH 10/12/17 12:00 (NS Flush) 2 ml BID IV FLUSH 10/12/17 21:00 (Tylenol) 650 mg Q4H PRN PO 10/12/17 12:00 (Zofran Inj) 4 mg Q6H PRN IVP 10/12/17 12:00 (Tylenol) 650 mg Q6H PRN PO 10/12/17 12:00 (Narcan Inj) 0.4 mg UNSCH PRN IV PUSH 10/12/17 12:00 (Milk Of Magnesia Liq) 30 ml Q12H PRN PO 10/12/17 12:00 (Lactinex) 1 tab Q12HR PO 10/12/17 21:00 Pharmacy Profile Note 0 ml @ 0 mls/hr UNSCH PRN OTHER 10/12/17 12:00 Piperacillin Sod/ Tazobactam Sod 50 ml @ 100 mls/hr Q8H IV 10/12/17 20:00 Vancomycin HCl 1000 mg/Sodium Chloride 250 ml @ 250 mls/hr Q12H IV 10/13/17 00:00 Miscellaneous Information SPECIFIC LAB TO BE PAPITO... ONCE ONCE .XX 10/13/17 23:45 10/13/17 23:46 Family History Maternal family history positive for cancer Social History Denies any tobacco, alcohol, or illicit drug use Physical Exam Vital Signs Vital Signs Date Time Temp Pulse Resp B/P (MAP) Pulse Ox O2 Delivery O2 Flow Rate FiO2 10/12/17 09:26 106 10/12/17 09:20 98.0 112 19 138/79 (98) 93 Physical Exam GENERAL: Well-nourished, well-developed elderly male patient in NAD. SKIN: Warm and dry. No rash. HEAD: Normocephalic. Atraumatic. EYES: Pupils equal and round. No scleral icterus. No injection or drainage. ENT: No nasal bleeding or discharge. Mucous membranes slightly dry. NECK: Supple. Trachea midline. CARDIOVASCULAR: Tachycardic, regular rhythm. S1, S2 noted. No murmur appreciated. RESPIRATORY: No accessory muscle use. Clear to auscultation. Breath sounds equal bilaterally. GASTROINTESTINAL: Abdomen soft, non-tender, nondistended. Normoactive bowel sounds x4. GENITOURINARY: Suprapubic catheter in place, minimal surrounding erythema likely from irritation but no obvious cellulitis/induration or discharge. MUSCULOSKELETAL: No obvious deformities. Extremities without clubbing, cyanosis , or edema. NEUROLOGICAL: Awake and alert. No obvious cranial nerve deficits. Motor grossly within normal limits. 5/5 muscle strength in bilateral upper and lower extremities. Normal speech. PSYCHIATRIC: Appropriate mood and affect; insight and judgment fair. Laboratory Laboratory Tests Test 10/12/17 09:31 10/12/17 10:00 White Blood Count 15.5 Red Blood Count 4.49 Hemoglobin 12.8 Hematocrit 39.4 Mean Corpuscular Volume 87.8 Mean Corpuscular Hemoglobin 28.4 Mean Corpuscular Hemoglobin Concent 32.4 Red Cell Distribution Width 18.2 Platelet Count 389 Mean Platelet Volume 7.9 Neutrophils (%) (Auto) 83.0 Lymphocytes (%) (Auto) 10.6 Monocytes (%) (Auto) 6.1 Eosinophils (%) (Auto) 0.1 Basophils (%) (Auto) 0.2 Neutrophils # (Auto) 12.9 Lymphocytes # (Auto) 1.6 Monocytes # (Auto) 0.9 Eosinophils # (Auto) 0.0 Basophils # (Auto) 0.0 CBC Comment DIFF FINAL Differential Comment Blood Urea Nitrogen 26 Creatinine 0.67 Random Glucose 332 Total Protein 6.5 Albumin 2.0 Calcium Level 7.8 Alkaline Phosphatase 85 Aspartate Amino Transf (AST/SGOT) 9 Alanine Aminotransferase (ALT/SGPT) 11 Total Bilirubin 0.4 Sodium Level 135 Potassium Level 3.5 Chloride Level 101 Carbon Dioxide Level 25.6 Anion Gap 8 Estimat Glomerular Filtration Rate 112 Urine Color YELLOW Urine Turbidity CLOUDY Urine pH 6.0 Urine Specific Beverly 1.017 Urine Protein 30 Urine Glucose (UA) 1000 Urine Ketones 10 Urine Occult Blood MOD Urine Nitrite NEG Urine Bilirubin NEG Urine Urobilinogen LESS THAN 2.0 Urine Leukocyte Esterase LARGE Urine RBC 168 Urine WBC Urine WBC Clumps OCC Urine Bacteria FEW Urine Mucus FEW Microscopic Urinalysis Comment CATH-CULTURE IND Date/Time Source Procedure Growth Status 10/12/17 10:00 Urine Catheterized Urine Urine Culture Pending Received Result Diagram: 10/12/1793010/12/17930 Caprini VTE Risk Assessment Caprini VTE Risk Assessment: Mod/High Risk (score >= 2) Caprini Risk Assessment Model Point Value = 1 Point Value = 2 Point Value = 3 Point Value = 5 Age 41-60 Minor surgery BMI > 25 kg/m2 Swollen legs Varicose veins or History of unexplained or recurrent spontaneous Oral contraceptives or hormone replacement Sepsis (< 1 month) Serious lung disease, including pneumonia (< 1 month) Abnormal pulmonary function Acute myocardial infarction Congestive heart failure (< 1 month) History of inflammatory bowel disease Medical patient at bed rest Age 61-74 Arthroscopic surgery Major open surgery (> 45 min) Laparoscopic surgery (> 45 min) Malignancy Confined to bed (> 72 hours) Immobilizing plaster cast Central venous access Age >= 75 History of VTE Family history of VTE Factor V Leiden Prothrombin [id number] Lupus anticoagulant Anticardiolipin antibodies Elevated serum homocysteine Heparin-induced thrombocytopenia Other congenital or acquired thrombophilia Stroke (< 1 month) Elective arthroplasty Hip, pelvis, or leg fracture Acute spinal cord injury (< 1 month) Prophylaxis Regimen Total Risk Factor Score Risk Level Prophylaxis Regimen 0-1 Low Early ambulation 2 Moderate Order ONE of the following: *Sequential Compression Device (SCD) *Heparin 5000 units SQ BID 3-4 Higher Order ONE of the following medications: *Heparin 5000 units SQ TID *Enoxaparin/Lovenox 40 mg SQ daily (WT < 150 kg, CrCl > 30 mL/min) *Enoxaparin/Lovenox 30 mg SQ daily (WT < 150 kg, CrCl > 10-29 mL/min) *Enoxaparin/Lovenox 30 mg SQ BID (WT < 150 kg, CrCl > 30 mL/min) AND/OR *Sequential Compression Device (SCD) 5 or more Highest Order ONE of the following medications: *Heparin 5000 units SQ TID (Preferred with Epidurals) *Enoxaparin/Lovenox 40 mg SQ daily (WT < 150 kg, CrCl > 30 mL/min) *Enoxaparin/Lovenox 30 mg SQ daily (WT < 150 kg, CrCl > 10-29 mL/min) *Enoxaparin/Lovenox 30 mg SQ BID (WT < 150 kg, CrCl > 30 mL/min) AND *Sequential Compression Device (SCD) Assessment and Plan Problem List: (1) Sepsis ICD Code: A41.9 - Sepsis, unspecified organism Status: Resolved (2) UTI (urinary tract infection) ICD Code: N39.0 - Urinary tract infection, site not specified Status: Acute (3) Suprapubic catheter dysfunction ICD Code: T83.010A - Breakdown (mechanical) of cystostomy catheter, initial encounter (4) Hypertension ICD Code: I10 - Essential (primary) hypertension Status: Chronic (5) Diabetes mellitus ICD Code: E11.9 - Type 2 diabetes mellitus without complications Status: Chronic Assessment and Plan 89-year-old male with history of DM, HTN, HLD, BPH, obstructive uropathy s/p suprapubic catheter, recurrent UTIs, presents from home with increasing confusion, weakness, and concern for UTI. Sepsis with Complicated UTI: WBC 15.5K, Tachycardic HR 112, source-UTI. Lactic acid pending. Failed Outpatient Treatment. +Suprapubic catheter. -Suprapubic catheter exchanged in the ED 10/12 -Started on antibiotics with IV Vanco and IV Zosyn -Await urine culture -S/p 2L IVF boluses in ER, continue on IVF hydration at 70cc/hr -Check blood cultures and lactic acid -Monitor CBC -Monitor for improvement Fatigue/Weakness/Inability to Ambulate/Difficulty with ADLs: suspect multifactorial secondary to recent infections, hospitalizations, and advanced age. Patient lives alone. -consult PT/OT -daughter agrees to evaluation by palliative care -consider rehab vs hospice Diabetes Mellitus with Hyperglycemia: blood glucose 332 upon arrival. Last HgbA1c 12.1 on 07/25/17. -continue patient's acarbose and glyburide, hold patient's metformin -Monitor Accu-Checks and cover with medium dose Novolog SSI -hypoglycemia protocol -Repeat HgbA1c -consult journalists and other writers and nurses educator Hypertension: chronic, BP fairly well controlled -continue patient's home meds including metoprolol, lisinopril -monitor BP, adjust antihypertensives as needed Dementia: chronic, stable -continue patient's Aricept Hypothyroidism: chronic, stable -continue patient's synthroid DVT Prophylaxis: teds/SCDs This note was transcribed by roe Cannon. I, Dr. Kris Castro personally performed the history, physical exam, and medical decision making; and confirmed the accuracy of the information in the transcribed note. Authenticated by Dr. Kris Castro on 10/12/17 at 13:02. Discussed Condition With Patient, Patient's friend at bedside, Dr. Moreno, QUALITY IMPROVEMENT SPECIALIST Physician Certification 2 Midnight Certification Type: Admission for Inpatient Services Order for Inpatient Services The services are ordered in accordance with Medicare regulations or non- Medicare payer requirements, as applicable. In the case of services not specified as inpatient-only, they are appropriately provided as inpatient services in accordance with the 2-midnight benchmark. Estimated LOS (days): 3 days is the estimated time the patient will need to remain in the hospital, assuming treatment plan goals are met and no additional complications. Post-Hospital Plan: Not yet determined Jennifer Cannon PA-C Oct 12, 2017 13:02 Kris Castro MD Oct 12, 2017 13:03
[2017-10-12] MEDS ORDERED: SILVER SULFADIAZINE 1% CR 50 GM JAR TOPICAL PRN (14:30)
[2017-10-12] MEDS ORDERED: PILL SPLITTER OTHER PRN (14:45)
[2017-10-12] MEDS ORDERED: cloNIDine HCL 0.1 MG TAB PO PRN (15:00)
[2017-10-12] MEDS ORDERED: ACARBOSE 50 MG PO SCH (18:00)
[2017-10-12] MEDS: ENALAPRILAT 2.5 MG/2 ML VIAL IV PUSH PRN (20:05)
[2017-10-12] MEDS ORDERED: METOPROLOL TARTRATE 25 MG TAB PO ONE (20:30)
[2017-10-12] MEDS: ASPIRIN 81 MG CHEW TAB CHEW SCH (20:36)
[2017-10-12] MEDS: DONEPEZIL HCL 5 MG TAB PO SCH (20:36)
[2017-10-12] MEDS: LACTOBACILLUS ACIDOPHILUS TAB PO SCH (20:36)
[2017-10-12] MEDS: PIPERACIL-TAZO 3.375 GM PREMIX 50 ML IV SCH (20:46)
[2017-10-12] MEDS: SODIUM CHLORIDE 0.9% FLUSH 10 ML FLUSH IV FLUSH SCH (20:54)
--- NOTE | 2017-10-12 22:09 | EKG ---
Date Performed: 10/12/2017 Time Performed: 09:25:00 PTAGE: 89 years EKG: ATRIAL FIBRILLATION WITH RAPID VENTRICULAR RESPONSE MARKED LEFT AXIS DEVIATION INTRAVENTRIC ULAR CONDUCTION DELAY ABNORMAL ECG PREVIOUS TRACING : 07/22/2017 07.15 Compared to prior tracing no significant change DOCTOR: Kwaku Sepulveda Interpretating Date/Time 10/12/2017 22:07:40
[2017-10-13] VITALS (12 sets, daily range): BP systolic 108–154; BP diastolic 57–73; PULSE 82–152; RESP 19–24; TEMP 97.6–98.2; O2SAT 92–96
[2017-10-13] MEDS: VANCOMYCIN 1,000 MG/NS 250 ML IV SCH ×4 (01:28→13:41)
[2017-10-13] MEDS: SODIUM CHLOR 0.9% 1000 ML INJ 1,000 ML IV SCH ×3 (02:10→16:07)
[2017-10-13] MEDS: PIPERACIL-TAZO 3.375 GM PREMIX 50 ML IV SCH ×3 (04:07→20:52)
[2017-10-13] MEDS ORDERED: DILTIAZEM HCL 25 MG/5 ML VIAL IV PUSH ONE (04:15)
[2017-10-13] MEDS: DILTIAZEM INJ 125 MG in SODIUM CHLORIDE 0.9% INJ 100 ML IV PRN ×2 (05:26→14:07)
[2017-10-13] MEDS: LEVOTHYROXINE SODIUM 100 MCG TAB PO SCH (06:33)
[2017-10-13] MEDS: ENALAPRILAT 2.5 MG/2 ML VIAL IV PUSH PRN (06:34)
[2017-10-13 06:54] LABS: AUTOMATED NEUTROPHIL # 14.1 TH/MM3 (1.8-7.7); BASOPHIL % 0.2 % (0.0-2.0); EOSINOPHIL # 0.1 TH/MM3 (0-0.4); EOSINOPHIL % 0.5 % (0.0-4.0); HEMATOCRIT 42.2 % (39.0-51.0); HEMO FLAGS DIFF FINAL; LYMPH % 10.7 % (9.0-44.0); LYMPHOCYTE # 1.8 TH/MM3 (1.0-4.8); MEAN CELL VOLUME 88.2 FL (80.0-100.0); MEAN CORPUSCULAR HEMOGLOBIN 28.6 PG (27.0-34.0); MEAN CORPUSCULAR HGB CONC 32.4 % (32.0-36.0); MONO % 6.9 % (0.0-8.0); NEUT % 81.7 % (16.0-70.0); PLATELET COUNT 442 TH/MM3 (150-450); RED BLOOD COUNT 4.78 MIL/MM3 (4.50-5.90); RED CELL DISTRIBUTION WIDTH 18.6 % (11.6-17.2); WHITE BLOOD COUNT 17.2 TH/MM3 (4.0-11.0)
[2017-10-13 07:38] LABS: ALKALINE PHOSPHATASE 83 U/L (45-117); ALT (GPT) 8 U/L (12-78); ANION GAP 10 MEQ/L (5-15); AST (GOT) 17 U/L (15-37); BICARBONATE 23.8 MEQ/L (21.0-32.0); BLOOD UREA NITROGEN 21 MG/DL (7-18); CHLORIDE 102 MEQ/L (98-107); GLOMERULAR FILTRATION RATE 127 ML/MIN (>89); POTASSIUM 3.8 MEQ/L (3.5-5.1); SODIUM (NA) 136 MEQ/L (136-145); TOTAL BILIRUBIN ADULT 0.4 MG/DL (0.2-1.0)
--- NOTE | 2017-10-13 07:44 | OTSOAPIP ---
TIME SESSION COMPLETED: AM TREATMENT TIME: 0 MINS. CHART REVIEWED. RECEIVED ORDER FOR OT CONSULT, HOWEVER PT HAD A CHANGE IN STATUS AND WAS TRANSFERRED TO INTENSIVE CARE. WILL REQUIRE NEW ORDERS WHEN STABLE. Therapist: MASSIMO MORENO OT/L Signature on file
[2017-10-13] MEDS: INSULIN ASPART SUPPLEMENTAL SCALE SQ SCH ×4 (08:40→22:15)
[2017-10-13] MEDS: TAMSULOSIN HCL 0.4 MG CAP PO SCH (08:42)
[2017-10-13] MEDS: ESCITALOPRAM OXALATE 10 MG TAB PO SCH (08:43)
[2017-10-13] MEDS: METOPROLOL SUCCINATE 50 MG EXTENDED RELEASE TAB PO SCH (08:43)
[2017-10-13] MEDS: LACTOBACILLUS ACIDOPHILUS TAB PO SCH ×2 (08:43→20:53)
[2017-10-13] MEDS: POTASSIUM CHLORIDE 20 MEQ CONTROLLED RELEASE TAB PO SCH (08:43)
[2017-10-13] MEDS: ASPIRIN 81 MG CHEW TAB CHEW SCH ×2 (08:43→20:53)
[2017-10-13] MEDS: SODIUM CHLORIDE 0.9% FLUSH 10 ML FLUSH IV FLUSH SCH ×2 (08:44→20:53)
[2017-10-13] MEDS: glyBURIDE 5 MG TAB PO SCH (08:47)
[2017-10-13] MEDS ORDERED: VANCOMYCIN INJ 1,250 MG in SODIUM CHLOR 0.9% 250 ML INJ 250 ML IV SCH (09:00)
[2017-10-13] MEDS ORDERED: LISINOPRIL 10 MG TAB PO SCH (09:00)
[2017-10-13] MEDS: HYDROCORTISONE 10 MG TAB PO SCH (09:34)
[2017-10-13 09:50] LABS: HEMOGLOBIN A1a 1.3 %; HEMOGLOBIN A1b 1.2 %; HEMOGLOBIN Ao 76.4 %; HEMOGLOBIN F 1.6 %; HEMOGLOBIN LA1C 4.1 %; HEMOGLOBIN P3 7.5 %
[2017-10-13] MEDS ORDERED: INFLUENZA VIRUS VACCINE (QUADRIVALENT) 0.5 ML SYR IM ONE (10:00)
--- NOTE | 2017-10-13 10:20 | PD.CONS ---
Consult Service Palliative Care . Consult Requested By Dr. Moreno . Primary Care Physician Chris Leblanc MD Reason for Consultation a. To assist with evaluation and management of symptoms including: Decreased appetite, confusion, debility b. To assist medical decision maker(s) with: better understanding of current medical conditions; weighing benefits/burdens of medical treatment options; making medical treatment decisions. . HPI History of Present Illness Mr. Courtney is an 89 year old with a history of diabetes, hypertension, obstructive uropathy from BPH requiring a suprapubic catheter, HLD, history of gastric ulcers, history of atrial fibrillation, hiatal hernia, hypothyroidism, macular degeneration, and sciatica. He presented to [facility] ED via EMS on 10/12/17 for evaluation of worsening confusion, generalized weakness and possible UTI. Mr. Courtney has been hospitalized multiple times in the past 6 months because of recurrent infections including sepsis, recurrent UTIs, C. difficile, and pneumonia. The patient had reportedly become more lethargic, confused and unable to ambulate during the past week. An at-home urinalysis was indicative of a UTI, and the patient was started on ciprofloxacin one day prior by his PCP. Patient lives at home alone, and usually the family arranges for PROFESSIONAL HEALTHCARE REPRESENTATIVE to check up on him or stay with him during the day. The patient's family decided to go to the ED because the patient was hallucinating and his mental status was much worse than his baseline. Additional diagnostic data: * Pulse: 112, respirations 19, BP 130/79, oxygen saturation 93% on room air, oral temperature 98.0 * White blood count: 15.5, hemoglobin 12.8, hematocrit 39.4, platelets 389, neutrophils 83.0 * Sodium: 135, potassium 3.5, chloride 101, carbon dioxide 25.6, random glucose 332, calcium 7.8 * BUN: 26, creatinine 0.67, GFR 112 * Total bilirubin: 0.4, AST 9, ALT 11, alkaline phosphatase 85 * Total protein: 6.5, albumin 2.0 * Urinalysis showed glucose, significant pyuria. Urine culture pending * Blood culture pending * EKG: A. fib, rate of 112, right bundle branch block, left axis deviation. Patient was admitted with worsening UTI symptoms. At this point the patient is significantly debilitated. He is confused, unable to ambulate and requires significant assistance with ADLs. The patient daughter, retired nurse, is concerned about the patient's clinical decline. Palliative Care was consulted to assist with symptom management and to discuss with the family the benefits and burdens of his current illnesses and the options regarding future care. Patient went into atrial fibrillation with RVR overnight; he was started on a Cardizem drip. Will continue metoprolol and add oral Cardizem before weaning off Cardizem drip. On exam, patient is pleasantly confused. He does not show insight or judgment related to his current clinical condition. Palliative care spoke to patient's daughter, Lola Veliz, who is the [facility] decision maker. She states the patient has experienced an acute decline over the past several months, and she believes it is time to focus on the patient's quality of life. CODE STATUS was changed to NO CODE- DNR/DNI per family request. They would like to optimize this hospitalization course and will likely transition to hospice at discharge. . Function/Cognitive Trajectory Mr. Courtney has experienced an acute decline over the past 6 months as evidenced by multiple hospitalizations, recurrent infections and progressive loss of functional status. The patient currently lives alone and has home health care nursing for approximately 4 hours daily. The patient's daughter reports the patient become progressively more weak, lethargic and confused over the past few weeks. He has experienced a reported weight loss of 50 pounds in the past 12 months and has been unable to ambulate due to his increased weakness. There is concern that he can no longer care for himself and now requires 24/7 care. . Review of Systems Constitutional: COMPLAINS OF: Fatigue, Weight loss (50 pound weight loss in the past 12 months), Change in appetite (decreased appetite), Generalized weakness Cardiovascular: DENIES: Chest pain Gastrointestinal: DENIES: Black stools, Bloody stools, Constipation, Diarrhea, Vomiting blood Genitourinary: COMPLAINS OF: Decreased stream Hematologic/Lymphatics: COMPLAINS OF: Bruising Neurologic: COMPLAINS OF: Poor Balance Psychiatric: COMPLAINS OF: Confusion Past Family Social History Coded Allergies: adhesive tape (Verified Allergy, Severe, Hives, 10/12/17) hydrocodone (Verified Allergy, Severe, HIVES, 10/12/17) Past Medical History DM HTN HLD BPH Obstructive uropathy s/p suprapubic catheter Recurrent UTIs Hiatal hernia Gastric ulcers Hypothyroidism Macular degeneration Sciatica History of atrial fibrillation . Past Surgical History Cataract extractions Tonsillectomy Cystoscopy with suprapubic catheter placement Gastric perforation repair . Reported Medications Cipro (Ciprofloxacin HCl) 500 Mg Tab 500 Mg PO BID Klor-Con M20 (Potassium Chloride Microencaps) 20 Meq Tab 20 Meq PO DAILY Metformin ER (Metformin HCl) 500 Mg Leanne 500 Mg PO BID With evening meal Synthroid (Levothyroxine Sodium) 100 Mcg Tab 100 Mcg PO DAILY Lexapro (Escitalopram Oxalate) 5 Mg Tab 5 Mg PO DAILY Aricept (Donepezil HCl) 5 Mg Tablet 5 Mg PO HS Glyburide 5 Mg Tab 5 Mg PO DAILY Take with meals at the same time each day Preservision Areds (Multiple Vitamins W/ Minerals) 1 Cap Cap BID Aspirin 81 Mg Chew 81 Mg CHEW BID Lisinopril 10 Mg Tab 10 Mg PO DAILY Metoprolol Succinate ER 24 HR (Metoprolol Succinate) 50 Mg Tab 50 Mg PO DAILY Acarbose 50 Mg Tab 50 Mg PO TID THREE TIMES DAILY WITH MEALS FOR BSM Hydrocortisone 5 Mg Tab 2.5 Mg PO DAILY Take with food to decrease GI upset . Current Medications Medications (Trade) Dose Ordered Sig/Shanel Route Start Time Stop Time Status Last Admin (D50w (Vial) Inj) 50 ml UNSCH PRN IV PUSH 10/12/17 12:00 (Glucagon Inj) 1 mg UNSCH PRN OTHER 10/12/17 12:00 (NovoLOG SUPPLEMENTAL SCALE) 1 ACHS SLIDING SCALE SQ 10/12/17 12:00 10/13/17 08:40 Sodium Chloride 1,000 ml @ 70 mls/hr [id number] IV 10/12/17 11:52 10/13/17 08:44 (NS Flush) 2 ml UNSCH PRN IV FLUSH 10/12/17 12:00 (NS Flush) 2 ml BID IV FLUSH 10/12/17 21:00 10/13/17 08:44 (Tylenol) 650 mg Q4H PRN PO 10/12/17 12:00 (Zofran Inj) 4 mg Q6H PRN IVP 10/12/17 12:00 (Tylenol) 650 mg Q6H PRN PO 10/12/17 12:00 (Narcan Inj) 0.4 mg UNSCH PRN IV PUSH 10/12/17 12:00 (Milk Of Magnviviana Liq) 30 ml Q12H PRN PO 10/12/17 12:00 (Lactinex) 1 tab Q12HR PO 10/12/17 21:00 10/13/17 08:43 Pharmacy Profile Note 0 ml @ 0 mls/hr UNSCH PRN OTHER 10/12/17 12:00 Piperacillin Sod/ Tazobactam Sod 50 ml @ 100 mls/hr Q8H IV 10/12/17 20:00 10/13/17 04:07 Vancomycin HCl 1000 mg/Sodium Chloride 250 ml @ 250 mls/hr Q12H IV 10/13/17 00:00 10/13/17 01:28 Miscellaneous Information SPECIFIC LAB TO BE PAPITO... ONCE ONCE .XX 10/13/17 23:45 10/13/17 23:46 (Aspirin Chew) 81 mg BID CHEW 10/12/17 21:00 10/13/17 08:43 (Aricept) 5 mg HS PO 10/12/17 21:00 10/12/17 20:36 (Lexapro) 5 mg DAILY PO 10/13/17 09:00 10/13/17 08:43 (Diabeta) 5 mg DAILY@0800 PO 10/13/17 08:00 10/13/17 08:47 (Cortef) 2.5 mg DAILY PO 10/13/17 09:00 (Synthroid) 100 mcg DAILY@0600 PO 10/13/17 06:00 10/13/17 06:33 (Prinivil) 10 mg DAILY PO 10/13/17 09:00 10/13/17 08:43 (Toprol Xl) 50 mg DAILY PO 10/13/17 09:00 10/13/17 08:43 (KCl) 20 meq DAILY PO 10/13/17 09:00 10/13/17 08:43 (Silvadene 1% Cream (50 Gm)) 1 applic DAILY PRN TOPICAL 10/12/17 14:30 (Flomax) 0.4 mg DAILY PO 10/13/17 09:00 10/13/17 08:42 (Pill Splitter) 1 ea UNSCH PRN OTHER 10/12/17 14:45 (Vasotec Inj) 2.5 mg Q6H PRN IV PUSH 10/12/17 15:00 10/13/17 06:34 (Catapres) 0.1 mg Q6H PRN PO 10/12/17 15:00 10/12/17 17:00 (Flu (Quadrivalent) Vaccine Inj) 0.5 ml ONCE ONCE IM 10/13/17 10:00 10/13/17 10:01 10/13/17 08:42 Diltiazem HCl 125 mg/Sodium Chloride 125 ml @ 5 mls/hr TITRATE PRN IV 10/13/17 04:15 10/13/17 05:26 Family History Mother in her 50s from an unknown type of cancer. Father had emphysema. . Substance Use Tobacco: Remote history, quit at the age of 52 Alcohol: Patient denies Prescription med abuse: None known Illicits: None known . Psychosocial History Patient is originally from [place]. He lived in [place], [place] for many years. 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 The patient has 5 adult children. Two daughters live in [place]; Two sons live in [place] and one son who lives in [place] and is estranged from the family. The patient's daughter states "being cognitively sharp" is probably the most important thing to her father. . Spiritual/Cultural Factors Worship pam . Date completed: 05/23/2015 . Health Care Surrogate(s): Francisca Veliz is the designated [facility] decision-maker. Francisca Monet has been designated as the alternate [facility] decision-maker. . Documented care wishes: The patient completed a standard living will on 05/23/15 stating he wishes that life prolonging procedures be withheld or withdrawn in the event that 2 physicians determine there is no reasonable medical probability of recovery from a terminal condition, an end-stage condition or if he is in a permanent vegetative state. At that time, he wishes to be allowed to peacefully and naturally with only the administration of medication or performance of procedures deemed necessary to provide him comfort. . Today's verbally stated goals: Patient is currently confused and unable to participate in conversations concerning his medical treatment goals. . Family/friends goals: The patient's family would like to optimize this hospitalization course but will likely transition to comfort focused care and hospice upon discharge. . Ethical and Legal Issues No known ethical or legal issues at this time. . Physical Exam Vital Signs Date Time Temp Pulse Resp B/P (MAP) Pulse Ox O2 Delivery O2 Flow Rate FiO2 10/13/17 08:06 96 Nasal Cannula 2.00 10/13/17 07:00 95 Nasal Cannula 3.00 10/13/17 06:00 147 140/95 10/13/17 05:26 105 140/95 10/13/17 04:45 119 10/13/17 04:45 97.6 119 24 150/67 (94) 94 10/13/17 03:40 98.0 152 22 138/71 (93) 96 10/12/17 23:00 97.1 115 22 143/91 (108) 94 10/12/17 20:15 143 10/12/17 19:57 98.1 133 181/96 (124) 95 10/12/17 16:05 97.5 131 18 164/78 (106) 96 10/12/17 14:44 97.4 136 19 170/83 (112) 91 10/12/17 13:28 10/12/17 13:27 102 22 143/82 (102) 94 Room Air 10/12/17 09:26 106 10/12/17 09:20 98.0 112 19 138/79 (98) 93 . Exam CONSTITUTIONAL/GENERAL: This is a frail, elderly male patient in no acute distress. TUBES/LINES/DRAINS: Suprapubic catheter, PIV x 2, nc SKIN: No jaundice, rashes, or lesions. Skin temperature appropriate. Not diaphoretic. HEAD: Atraumatic. Normocephalic. EYES: Pupils equal and round and reactive. . No scleral icterus. No injection or drainage. Fundi not examined. ENT: Hearing grossly normal. Nose without bleeding or purulent drainage. NECK: Trachea midline. CARDIOVASCULAR: Atrial fibrillation. No Murmurs, gallops, or rubs. No JVD. Peripheral pulses symmetric. RESPIRATORY/CHEST: Symmetric, unlabored respirations. Clear to auscultation. Breath sounds diminished bilaterally. No wheezes, rales, or rhonchi. GASTROINTESTINAL: Abdomen soft, non-tender, nondistended. No guarding. Bowel sounds present. GENITOURINARY: Without palpable bladder distension. Suprapubic catheter in place. MUSCULOSKELETAL: Extremities without clubbing, cyanosis, or edema. No mottling or clubbing. LYMPHATICS: No palpable cervical or supraclavicular adenopathy. NEUROLOGICAL: Awake and alert. Speech at times is nonsensical; sounds to some simple questions appropriately. Follows some commands. Moving all extremities 4. PSYCHIATRIC: No obvious anxiety/depression. No apparent hallucinations or other psychotic thought process. . Diagnostic Tests Laboratory Laboratory Tests Test 10/12/17 09:31 10/12/17 10:00 10/12/17 16:35 10/13/17 05:49 White Blood Count 15.5 TH/MM3 (4.0-11.0) 17.2 TH/MM3 (4.0-11.0) Red Blood Count 4.49 MIL/MM3 (4.50-5.90) 4.78 MIL/MM3 (4.50-5.90) Hemoglobin 12.8 GM/DL (13.0-17.0) 13.7 GM/DL (13.0-17.0) Hematocrit 39.4 % (39.0-51.0) 42.2 % (39.0-51.0) Mean Corpuscular Volume 87.8 FL (80.0-100.0) 88.2 FL (80.0-100.0) Mean Corpuscular Hemoglobin 28.4 PG (27.0-34.0) 28.6 PG (27.0-34.0) Mean Corpuscular Hemoglobin Concent 32.4 % (32.0-36.0) 32.4 % (32.0-36.0) Red Cell Distribution Width 18.2 % (11.6-17.2) 18.6 % (11.6-17.2) Platelet Count 389 TH/MM3 (150-450) 442 TH/MM3 (150-450) Mean Platelet Volume 7.9 FL (7.0-11.0) 8.2 FL (7.0-11.0) Neutrophils (%) (Auto) 83.0 % (16.0-70.0) 81.7 % (16.0-70.0) Lymphocytes (%) (Auto) 10.6 % (9.0-44.0) 10.7 % (9.0-44.0) Monocytes (%) (Auto) 6.1 % (0.0-8.0) 6.9 % (0.0-8.0) Eosinophils (%) (Auto) 0.1 % (0.0-4.0) 0.5 % (0.0-4.0) Basophils (%) (Auto) 0.2 % (0.0-2.0) 0.2 % (0.0-2.0) Neutrophils # (Auto) 12.9 TH/MM3 (1.8-7.7) 14.1 TH/MM3 (1.8-7.7) Lymphocytes # (Auto) 1.6 TH/MM3 (1.0-4.8) 1.8 TH/MM3 (1.0-4.8) Monocytes # (Auto) 0.9 TH/MM3 (0-0.9) 1.2 TH/MM3 (0-0.9) Eosinophils # (Auto) 0.0 TH/MM3 (0-0.4) 0.1 TH/MM3 (0-0.4) Basophils # (Auto) 0.0 TH/MM3 (0-0.2) 0.0 TH/MM3 (0-0.2) CBC Comment DIFF FINAL DIFF FINAL Differential Comment Blood Urea Nitrogen 26 MG/DL (7-18) 21 MG/DL (7-18) Creatinine 0.67 MG/DL (0.60-1.30) 0.60 MG/DL (0.60-1.30) Random Glucose 332 MG/DL (74-106) 226 MG/DL (74-106) Total Protein 6.5 GM/DL (6.4-8.2) 6.9 GM/DL (6.4-8.2) Albumin 2.0 GM/DL (3.4-5.0) 2.1 GM/DL (3.4-5.0) Calcium Level 7.8 MG/DL (8.5-10.1) 8.2 MG/DL (8.5-10.1) Alkaline Phosphatase 85 U/L (45-117) 83 U/L (45-117) Aspartate Amino Transf (AST/SGOT) 9 U/L (15-37) 17 U/L (15-37) Alanine Aminotransferase (ALT/SGPT) 11 U/L (12-78) 8 U/L (12-78) Total Bilirubin 0.4 MG/DL (0.2-1.0) 0.4 MG/DL (0.2-1.0) Sodium Level 135 MEQ/L (136-145) 136 MEQ/L (136-145) Potassium Level 3.5 MEQ/L (3.5-5.1) 3.8 MEQ/L (3.5-5.1) Chloride Level 101 MEQ/L (98-107) 102 MEQ/L (98-107) Carbon Dioxide Level 25.6 MEQ/L (21.0-32.0) 23.8 MEQ/L (21.0-32.0) Anion Gap 8 MEQ/L (5-15) 10 MEQ/L (5-15) Estimat Glomerular Filtration Rate 112 ML/MIN (>89) 127 ML/MIN (>89) Urine Color YELLOW (YELLW/STRAW) Urine Turbidity CLOUDY (CLEAR) Urine pH 6.0 (5.0-8.5) Urine Specific [place] 1.017 (1.002-1.035) Urine Protein 30 mg/dL (NEG-TRACE) Urine Glucose (UA) 1000 mg/dL (NEG) Urine Ketones 10 mg/dL (NEG) Urine Occult Blood MOD (NEG) Urine Nitrite NEG (NEG) Urine Bilirubin NEG (NEG) Urine Urobilinogen LESS THAN 2.0 MG/DL (LESS Urine Leukocyte Esterase LARGE (NEG) Urine RBC 168 /hpf (0-3) Urine WBC /hpf (0-5) Urine WBC Clumps OCC (NONE) Urine Bacteria FEW /hpf (NONE) Urine Mucus FEW /lpf (OCC) Microscopic Urinalysis Comment CATH-CULTURE IND Lactic Acid Level 1.6 mmol/L (0.4-2.0) . Result Diagram: 10/13/17 0549 10/13/17 0549 Microbiology Microbiology Date/Time Source Procedure Growth Status 10/12/17 16:50 Blood Peripheral Aerobic Blood Culture Pending Received 10/12/17 16:50 Blood Peripheral Anaerobic Blood Culture Pending Received 10/12/17 16:35 Blood Peripheral Aerobic Blood Culture Pending Received 10/12/17 16:35 Blood Peripheral Anaerobic Blood Culture Pending Received 10/12/17 10:00 Urine Catheterized Urine Urine Culture Pending Received Patient/Family Conference Present at Family Conference: Spoke to patient's daughter/HSC via telephone. . Family Conference Location: Telephone Issues Discussed: * Palliative care role, purpose, approach * Additional medical, psychosocial, and spiritual history * Patients general health, functional status, and cognitive changes in the months leading up to the current hospitalization * Patient/family understanding of the current medical problems * Patient/family understanding of prognosis * Patients goals of care as best understood from advance directives and/or conversations and/or values * Current medical treatment options and benefits/burdens of those options * Likely scenarios comparing ongoing aggressive care with a transition to comfort measures only * Questions answered to the best of my ability * Palliative care contact information provided . Assessment and Plan Disease Oriented Problem List: (1) Dementia (2) Hypothyroidism (3) Sepsis (4) UTI (urinary tract infection) (5) Hypertension (6) Diabetes mellitus Symptom Scale: (1) Decrease in appetite (2) Debility (3) Confusion Pertinent Non-Medical Issues Psychosocial:Patient is originally from [place]. He lived in [place], [place] for many years. 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 The patient has 5 adult children. Two daughters live in [place]; Two sons live in [place] and one son who lives in [place] and is estranged from the family. The patient's daughter states "being cognitively sharp" is probably the most important thing to her father. Spiritual: Worship pam Legal: HCS and Living will completed on 05/23/2015. Francisca Wallen is the designated [facility] decision-maker. Francisca Monet has been designated as the alternate [facility] decision-maker. The patient completed a standard living will on stating he wishes that life prolonging procedures be withheld or withdrawn in the event that 2 physicians determine there is no reasonable medical probability of recovery from a terminal condition, an end-stage condition or if he is in a permanent vegetative state. At that time, he wishes to be allowed to peacefully and naturally with only the administration of medication or performance of procedures deemed necessary to provide him comfort. Ethical issues impacting care: No known ethical issues impacting care at this time. . Important Contacts Lola Veliz, daughter: [phone] . Prognosis Mr. Courtney is an 89 year old man with a complex medical history who as significantly declined in the past 6 moths. He has had multiple hospitalizations for recurrent UTIs, sepsis, pneumonia, C. difficile and bladder outlet obstruction from BPH requiring a suprapubic catheter. The patient has become progressively more weak, lethargic and confused. He has had a reported weight loss of 50 pounds in the past year and is now too weak to ambulate. Given this patient's advanced age, significant loss in functional status and recurrent infections, his over all prognosis is poor and he is hospice appropriate should his medical treatment goals become comfort focused. . Code Status: No Code Plan * NO CODE- DNR/DNI * Decision-making: Patient currently does not have insight or judgment related to his clinical conditions; it is unclear if the patient will regain capacity. Francisca Veliz is the designated [facility] decision-maker. Francisca Monet has been designated as the alternate [facility] decision-maker. * The patient completed a standard living will on 05/23/15 stating he wishes that life prolonging procedures be withheld or withdrawn in the event that 2 physicians determine there is no reasonable medical probability of recovery from a terminal condition, an end-stage condition or if he is in a permanent vegetative state. At that time, he wishes to be allowed to peacefully and naturally with only the administration of medication or performance of procedures deemed necessary to provide him comfort. * Goals is to optimize the current hospitalization and likely transition to hospice services upon discharge. * Discussed patient with Dr. Jones and bedside nurse, Monique. * Palliative care contact information provided to the patient's daughter, Lola * Symptom management-decreased appetite: Decreased appetite with associated weight loss reported. Patient's daughter reports a 50 pound weight loss in the past 12 months. BMI: 23.1; albumin 2. Dietary consult pending * Symptom management-confusion: Patient has some degree of dementia at baseline and is on Aricept at home. His confusion is likely exacerbated secondary to current clinical condition, recurrent UTI. Will continue to monitor patient closely to ensure safety and reorient patient as appropriate. * Symptom management-debility: Patient has become progressively more weak in recent months. He is no longer able to ambulate per his daughter's report. Occupational and physical therapy has been consulted but are currently being held status post change in status this morning and transfer to intensive care unit. * Palliative care will continue to follow this patient throughout his hospitalization to establish trust, assist with symptom management and clarification of medical treatment goals. . Thank you for the opportunity to participate in the care of Mr. Courtney. . Attestation To help prompt me to consider important information that might be impacting today's encounter and assessment, information from prior notes written by myself or my colleagues may have been "brought forward" into today's note. My signature on this note, however, is an attestation that I personally performed the exam, history, and/or decision-making noted today, and, unless otherwise indicated, the interactions with patient, family, and staff as well as the review of records all occurred today. I also attest that the listed assessment and stated plan reflect my best clinical judgment today based on the combination of historical information, prior notes, and today's exam/ interactions. When time spent is documented, it refers only to time spent today by the signer, or if indicated, combined time spent today by collaborating physician/nurse practitioner. . Nati Concepcion Oct 13, 2017 10:18
--- NOTE | 2017-10-13 12:46 | HHI.PR ---
Subjective Remarks f/u; UTI/ a-fib in no acute distress. afebrile. still tachycardic and currently on Cardizem drip. denies chest pain. d/w the RN. Objective Vitals Vital Signs Date Time Temp Pulse Resp B/P (MAP) Pulse Ox O2 Delivery O2 Flow Rate FiO2 10/13/17 12:00 103 10/13/17 12:00 98.2 103 19 108/57 (74) 92 10/13/17 11:09 127 143/76 10/13/17 10:41 85 135/67 10/13/17 10:00 90 10/13/17 08:06 96 Nasal Cannula 2.00 10/13/17 08:00 98.0 97 23 146/65 (92) 95 10/13/17 08:00 97 10/13/17 07:00 115 113/59 10/13/17 07:00 95 Nasal Cannula 3.00 10/13/17 06:00 147 140/95 10/13/17 05:26 105 140/95 10/13/17 04:45 119 10/13/17 04:45 97.6 119 24 150/67 (94) 94 10/13/17 03:40 98.0 152 22 138/71 (93) 96 10/12/17 23:00 97.1 115 22 143/91 (108) 94 10/12/17 20:15 143 10/12/17 19:57 98.1 133 181/96 (124) 95 10/12/17 16:05 97.5 131 18 164/78 (106) 96 10/12/17 14:44 97.4 136 19 170/83 (112) 91 10/12/17 13:28 10/12/17 13:27 102 22 143/82 (102) 94 Room Air I/O 10/12/17 10/12/17 10/12/17 10/13/17 10/13/17 10/13/17 07:00 15:00 23:00 07:00 15:00 23:00 Intake Total 1000 ml 625 ml 1400 ml Output Total 500 ml 500 ml Balance 1000 ml 125 ml 900 ml Intake Oral 625 ml 350 ml IV Total 1000 ml 1050 ml Output Urine Total 500 ml 500 ml # Bowel Movements 0 1 Result Diagram: 10/13/17 0549 10/13/17 0549 Objective Remarks GENERAL: This is a well-nourished, well-developed patient, in no apparent distress. CARDIOVASCULAR: tachycardic with irregular rhythm without murmurs, gallops, or rubs. RESPIRATORY: Clear to auscultation. Breath sounds equal bilaterally. No wheezes , rales, or rhonchi. GASTROINTESTINAL: Abdomen soft, non-tender, nondistended. Normal, active bowel sounds MUSCULOSKELETAL: Extremities without clubbing, cyanosis, or edema. NEURO: Alert & Oriented x4 to person, place, time, situation. Moves all ext x4 Medications and IVs Current Medications Sodium Chloride 1,000 ml @ 2,000 mls/hr Q30M ONCE IV Last administered on 10/12 10:45; Start 10/12/17 at 10:00; Stop 10/12/17 at 10:29; Status DC Vancomycin HCl 1500 mg/Sodium Chloride 515 ml @ 257.5 mls/ hr ONCE ONCE IV Last administered on 10/12/17 13:50; Start 10/12/17 at 11:30; Stop 10/12/17 at 13:29; Status DC Gentamicin Sulfate 80 mg/ Sodium Chloride 102 ml @ 100 mls/hr ONCE ONCE IV Last administered on 10/12/17 12:08; Start 10/12/17 at 11:30; Stop 10/12/17 at 12:31; Status DC Dextrose (D50w (Vial) Inj) 50 ml UNSCH PRN IV PUSH HYPOGLYCEMIA-SEE COMMENTS; Start 10/12/17 at 12:00 Glucagon (Glucagon Inj) 1 mg UNSCH PRN OTHER HYPOGLYCEMIA-SEE COMMENTS; Start 10/12/17 at 12:00 Insulin Aspart (NovoLOG SUPPLEMENTAL SCALE) 1 ACHS SLIDING SCALE SQ Last administered on 10/13/17 08:40; Start 10/12/17 at 12:00 Sodium Chloride 1,000 ml @ 70 mls/hr [id number] IV Last administered on 08:44; Start 10/12/17 at 11:52 Sodium Chloride (NS Flush) 2 ml UNSCH PRN IV FLUSH FLUSH AFTER USING IV ACCESS ; Start 10/12/17 at 12:00 Sodium Chloride (NS Flush) 2 ml BID IV FLUSH Last administered on 10/13/17 08: 44; Start 10/12/17 at 21:00 Acetaminophen (Tylenol) 650 mg Q4H PRN PO TEMP > 100.4; Start 10/12/17 at 12:00 Ondansetron HCl (Zofran Inj) 4 mg Q6H PRN IVP NAUSEA OR VOMITING; Start at 12:00 Acetaminophen (Tylenol) 650 mg Q6H PRN PO PAIN SCALE 1 TO 2; Start 10/12/17 at 12:00 Naloxone HCl (Narcan Inj) 0.4 mg UNSCH PRN IV PUSH SEE LABEL COMMENTS; Start 10/12/17 at 12:00 Magnesium Hydroxide (Milk Of Douglas Liq) 30 ml Q12H PRN PO Mild constipation ; Start 10/12/17 at 12:00 Lactobacillus Acidophilus (Lactinex) 1 tab Q12HR PO Last administered on 08:43; Start 10/12/17 at 21:00 Pharmacy Profile Note 0 ml @ 0 mls/hr UNSCH PRN OTHER ADJUST FOR CREATININE CLRNCE; Start 10/12/17 at 12:00 Vancomycin HCl 1250 mg/Sodium Chloride 262.5 ml @ 262.5 mls/ hr Q12H IV ; Start 10/13/17 at 09:00; Status Cancel Piperacillin Sod/ Tazobactam Sod 50 ml @ 100 mls/hr Q8H IV Last administered on 10/13/17 04:07; Start 10/12/17 at 20:00 Vancomycin HCl 1000 mg/Sodium Chloride 250 ml @ 250 mls/hr Q12H IV Last administered on 10/13/17 01:28; Start 10/13/17 at 00:00 Miscellaneous Information SPECIFIC LAB TO BE ... ONCE ONCE .XX ; Start 10/13 at 23:45; Stop 10/13/17 at 23:46 Aspirin (Aspirin Chew) 81 mg BID CHEW Last administered on 10/13/17 08:43; Start 10/12/17 at 21:00 Donepezil HCl (Aricept) 5 mg HS PO Last administered on 10/12/17 20:36; Start 10/12/17 at 21:00 Escitalopram Oxalate (Lexapro) 5 mg DAILY PO Last administered on 10/13/17 08: 43; Start 10/13/17 at 09:00 Glyburide (Diabeta) 5 mg DAILY@0800 PO Last administered on 10/13/17 08:47; Start 10/13/17 at 08:00 Hydrocortisone (Cortef) 2.5 mg DAILY PO Last administered on 10/13/17 09:34; Start 10/13/17 at 09:00 Levothyroxine Sodium (Synthroid) 100 mcg DAILY@0600 PO Last administered on 06:33; Start 10/13/17 at 06:00 Lisinopril (Prinivil) 10 mg DAILY PO Last administered on 10/13/17 08:43; Start 10/13/17 at 09:00 Metoprolol Succinate (Toprol Xl) 50 mg DAILY PO Last administered on 10/13/17 08:43; Start 10/13/17 at 09:00 Potassium Chloride (KCl) 20 meq DAILY PO Last administered on 10/13/17 08:43; Start 10/13/17 at 09:00 Silver Sulfadiazine (Silvadene 1% Cream (50 Gm)) 1 applic DAILY PRN TOPICAL APPLY TO AFFECTED AREA S/P; Start 10/12/17 at 14:30 Tamsulosin HCl (Flomax) 0.4 mg DAILY PO Last administered on 10/13/17 08:42; Start 10/13/17 at 09:00 Non-Formulary Medication 50 mg TID PO ; Start 10/12/17 at 18:00; Status UNV Miscellaneous (Pill Splitter) 1 ea UNSCH PRN OTHER SEE LABEL COMMENTS; Start 10/12/17 at 14:45 Enalaprilat (Vasotec Inj) 2.5 mg Q6H PRN IV PUSH SBP>160, DBP>90 Last administered on 10/13/17 06:34; Start 10/12/17 at 15:00 Clonidine (Catapres) 0.1 mg Q6H PRN PO SBP>160, DBP>90 Last administered on 17:00; Start 10/12/17 at 15:00 Influenza Virus Vaccine (Flu (Quadrivalent) Vaccine Inj) 0.5 ml ONCE ONCE IM Last administered on 10/13/17 08:42; Start 10/13/17 at 10:00; Stop 10/13/17 at 10:01; Status DC Metoprolol Tartrate (Lopressor) 12.5 mg ONCE ONCE PO Last administered on 10/12 20:36; Start 10/12/17 at 20:30; Stop 10/12/17 at 20:31; Status DC Diltiazem HCl (Cardizem Inj) 15 mg ONCE ONCE IV PUSH Last administered on 10/13 04:48; Start 10/13/17 at 04:15; Stop 10/13/17 at 04:16; Status DC Diltiazem HCl 125 mg/Sodium Chloride 125 ml @ 5 mls/hr TITRATE PRN IV Tachycardia Last administered on 10/13/17 05:26; Start 10/13/17 at 04:15 A/P Problem List: (1) Sepsis ICD Code: A41.9 - Sepsis, unspecified organism Status: Resolved (2) UTI (urinary tract infection) ICD Code: N39.0 - Urinary tract infection, site not specified Status: Acute (3) Suprapubic catheter dysfunction ICD Code: T83.010A - Breakdown (mechanical) of cystostomy catheter, initial encounter (4) Hypertension ICD Code: I10 - Essential (primary) hypertension Status: Chronic (5) Diabetes mellitus ICD Code: E11.9 - Type 2 diabetes mellitus without complications Status: Chronic Assessment and Plan A/P Sepsis with Complicated UTI Failed Outpatient Treatment. +Suprapubic catheter. -Suprapubic catheter exchanged in the ED 10/12 -Started on antibiotics with IV Vanco and IV Zosyn -Await urine culture -S/p 2L IVF boluses in ER, continue on IVF hydration at 70cc/hr -follow the blood cultures. -Monitor CBC Fatigue/Weakness/Inability to Ambulate/Difficulty with ADLs: suspect multifactorial secondary to recent infections, hospitalizations, and advanced age. Patient lives alone. -consulted PT/OT-will wait till tomorrow when the HR is better controlled. -daughter agrees to evaluation by palliative care -consider rehab vs hospice A-fib with RVR started on Cardizem drip- will continue metoprolol- will add po cardizem continue to monitor; will try to taper off the Cardizem drip. Diabetes Mellitus with Hyperglycemia: blood glucose 332 upon arrival. Last HgbA1c 12.1 on 07/25/17. -continue patient's acarbose and glyburide, hold patient's metformin -Monitor Accu-Checks and cover with medium dose Novolog SSI -hypoglycemia protocol -consult adhesion tester and cosmetology educator Hypertension: chronic, BP fairly well controlled -continue metoprolol- hold lisinopril since po cardizem will be added. -monitor BP, adjust antihypertensives as needed Dementia: chronic, stable -continue patient's Aricept Hypothyroidism: chronic, stable -continue patient's synthroid DVT Prophylaxis: teds/SCDs Discharge Planning awaiting palliative care evaluation; possible hospice?. Shaniqua Jones MD Oct 13, 2017 12:46
[2017-10-13] MEDS: DILTIAZEM HCL 30 MG TAB PO SCH ×2 (13:42→18:00)
--- NOTE | 2017-10-13 18:12 | PD.WCN.NOT ---
Wound Consult Description: Received consult per protocol for wound management of sacral and L heel Communicated with: SUSSY Cortez [facility] and Call placed to Doctor Jones Recommendation: 1.Please cleanse bilateral buttock , coccyx, gluteal cleft and perineal areas with soap and water and pat dry. apply thick layer of Calazime barrier cream mixed with 50/50 Antifungal cream to areas and leave wounds open to air. 2.Reposition patient every 2 hours and PRN for comfort and to offload pressure from deann prominences. 3. Obtain Carver airapy bed 4. Cleanse area around supra pubic tube with shallow full thickness skin loss , with normal saline and pat dry. Apply skin prep to periwound, before applying Optifoam basic. Change dressing every other day or as needed for saturation or dislodgement. Additional Information: Patient seen on [facility] around 1730 for evaluation of wound management of sacrum and L heel put in per protocol. Spoke with SUSSY Cortez regarding these areas. No breakdown reported on L heel. Patient has a scab on L ankle. RN reports open areas buttock area. Turned patient with the assistance of V[employer]ela and automobile and property underwriter to reveal shallow full thickness wounds to coccyx, gluteal cleft and R perineal area. Coccyx wound presents with ~30% yellow adherent slough and ~70% pink tissue wound measures 2cm x 1cm x slough. wound margins are well defined, and wound has an oval shape. Gluteal cleft wound located just below coccyx wound presents with ~40% adherent yellow slough and ~60% pink tissue. Wound measures 1.3cmx 1 cm x slough. Wound margins are also well defined. Both coccyx and gluteal cleft wounds presents with mixed etilogy of moisture, pressure and friction. Periwounds present with blanchable erythema, denuded skin and diffuse dry lesions.Wound drainage from gluteal cleft and coccyx wounds is sero- sanguinous and scant without odor. R Perineal full thickness wound presents like an open lesions, with ~60% yellow slough and ~40% pink tissue, with slight indurated wound margins.Wound drainage is scant and sero-sanguinous without odor. Opened lesions measures ~0.6cm x ~1cm.Cleansed all open wounds with normal saline and pat dry before applying 50/ 50 mix of Calazime barrier cream and antifungal cream. All wounds left open to air Area around supra pubic tube presents with shallow full thickness wound with 100 % pink tissue. Wound measures ~1cm x ~4cm x ~0.2cm.Wound drainage is scant and serous, without odor.Etiology appears to be moisture related. Cleansed wound with normal saline before applying skin prep to periwound and covering wound with Optifoam basic dressing. Chelsi Simon [facility] Oct 13, 2017 18:12
[2017-10-13] MEDS: DONEPEZIL HCL 5 MG TAB PO SCH (20:53)
[2017-10-13] MEDS ORDERED: PHARMACY ORDERED LAB ONE (23:45)
[2017-10-14] VITALS (13 sets, daily range): BP systolic 114–146; BP diastolic 60–78; PULSE 71–102; RESP 18–26; TEMP 97.5–98.4; O2SAT 93–95
[2017-10-14] MEDS: DILTIAZEM HCL 30 MG TAB PO SCH ×2 (00:15→06:00)
[2017-10-14] MEDS: VANCOMYCIN 1,000 MG/NS 250 ML IV SCH ×4 (03:38→11:53)
[2017-10-14] MEDS: PIPERACIL-TAZO 3.375 GM PREMIX 50 ML IV SCH ×3 (04:52→19:48)
--- NOTE | 2017-10-14 05:46 | RADRPT ---
EXAM DATE/TIME: 10/14/2017 05:16 [place] COMPARISON: CT BRAIN W/O CONTRAST, March 24, 2017, 22:08. INDICATIONS : Weakness. RADIATION DOSE: 40.00 CTDIvol (mGy) MEDICAL HISTORY : Hypertension. SURGICAL HISTORY : Tonsillectomy. ENCOUNTER: Initial ACUITY: 1 day PAIN SCALE: 0/10 LOCATION: cranial TECHNIQUE: Multiple contiguous axial images were obtained of the head. Using automated exposure control and adj ustment of the mA and/or kV according to patient size, radiation dose was kept as low as reasonably a chievable to obtain optimal diagnostic quality images. DICOM format image data is available electro nically for review and comparison. FINDINGS: CEREBRUM: The ventricles are normal for age. No evidence of midline shift, mass lesion, hemorrhage or acute in farction. No extra-axial fluid collections are seen. POSTERIOR FOSSA: The cerebellum and brainstem are intact. The 4th ventricle is midline. The cerebellopontine angle i s unremarkable. EXTRACRANIAL: The visualized portion of the orbits is intact. SKULL: The calvaria is intact. No evidence of skull fracture. CONCLUSION: Stable noncontrast head CT. Emanuel Gandara MD on October 14, 2017 at 5:43 Board Certified Radiologist. This report was verified electronically.
[2017-10-14] MEDS: LEVOTHYROXINE SODIUM 100 MCG TAB PO SCH (06:00)
[2017-10-14] MEDS: SODIUM CHLOR 0.9% 1000 ML INJ 1,000 ML IV SCH ×2 (06:33→21:32)
[2017-10-14] MEDS: INSULIN ASPART SUPPLEMENTAL SCALE SQ SCH ×4 (08:00→21:00)
[2017-10-14] MEDS: SODIUM CHLORIDE 0.9% FLUSH 10 ML FLUSH IV FLUSH SCH ×2 (09:00→19:49)
[2017-10-14] MEDS: METOPROLOL SUCCINATE 50 MG EXTENDED RELEASE TAB PO SCH (09:59)
[2017-10-14] MEDS: ESCITALOPRAM OXALATE 10 MG TAB PO SCH (10:00)
[2017-10-14] MEDS: TAMSULOSIN HCL 0.4 MG CAP PO SCH (10:00)
[2017-10-14] MEDS: glyBURIDE 5 MG TAB PO SCH (10:00)
[2017-10-14] MEDS: ASPIRIN 81 MG CHEW TAB CHEW SCH ×2 (10:00→19:48)
[2017-10-14] MEDS: POTASSIUM CHLORIDE 20 MEQ CONTROLLED RELEASE TAB PO SCH (10:00)
[2017-10-14] MEDS: HYDROCORTISONE 10 MG TAB PO SCH (10:00)
[2017-10-14] MEDS: LACTOBACILLUS ACIDOPHILUS TAB PO SCH ×2 (10:00→19:48)
--- NOTE | 2017-10-14 10:53 | HHI.PR ---
Subjective Remarks in no acute distress. agitated at times. back on cardizem drip. d/w the RN. Objective Vitals Vital Signs Date Time Temp Pulse Resp B/P (MAP) Pulse Ox O2 Delivery O2 Flow Rate FiO2 10/14/17 06:00 89 10/14/17 04:00 98.4 101 20 137/78 (97) 94 10/14/17 04:00 101 10/14/17 02:00 89 10/14/17 02:00 134 137/78 10/14/17 00:00 98.1 102 22 146/73 (97) 94 10/14/17 00:00 102 10/13/17 22:00 101 10/13/17 20:55 96 Nasal Cannula 2.00 10/13/17 20:00 107 10/13/17 20:00 98.1 107 22 154/73 (100) 94 10/13/17 19:00 95 Nasal Cannula 3.00 10/13/17 18:00 94 10/13/17 16:00 82 10/13/17 16:00 97.6 82 23 131/58 (82) 94 10/13/17 16:00 86 110/58 10/13/17 14:07 92 111/66 10/13/17 14:00 113 10/13/17 12:00 103 10/13/17 12:00 98.2 103 19 108/57 (74) 92 10/13/17 11:09 127 143/76 I/O 10/13/17 10/13/17 10/13/17 10/14/17 10/14/17 10/14/17 07:00 15:00 23:00 07:00 15:00 23:00 Intake Total 1400 ml 400 ml 1250 ml 1540 ml Output Total 500 ml 1250 ml 1250 ml Balance 900 ml 400 ml 0 ml 290 ml Intake Oral 350 ml 1200 ml 240 ml IV Total 1050 ml 400 ml 50 ml 1300 ml Output Urine Total 500 ml 1250 ml 1250 ml # Bowel Movements 1 0 0 Result Diagram: 10/13/17 0549 10/13/17 0549 Imaging Last Impressions Head CT 10/14/17 0000 Signed Impressions: Service Date/Time: Saturday, October 14, 2017 05:16 - CONCLUSION: Stable noncontrast head CT. Emanuel Gandara MD Objective Remarks GENERAL: elderly male, in no apparent distress. CARDIOVASCULAR: tachycardic with irregular rhythm without murmurs, gallops, or rubs. RESPIRATORY: Clear to auscultation. Breath sounds equal bilaterally. No wheezes , rales, or rhonchi. GASTROINTESTINAL: Abdomen soft, non-tender, nondistended. Normal, active bowel sounds MUSCULOSKELETAL: Extremities without clubbing, cyanosis, or edema. NEURO: awake and alert. Medications and IVs Current Medications Sodium Chloride 1,000 ml @ 2,000 mls/hr Q30M ONCE IV Last administered on 10/12 10:45; Start 10/12/17 at 10:00; Stop 10/12/17 at 10:29; Status DC Vancomycin HCl 1500 mg/Sodium Chloride 515 ml @ 257.5 mls/ hr ONCE ONCE IV Last administered on 10/12/17 13:50; Start 10/12/17 at 11:30; Stop 10/12/17 at 13:29; Status DC Gentamicin Sulfate 80 mg/ Sodium Chloride 102 ml @ 100 mls/hr ONCE ONCE IV Last administered on 10/12/17 12:08; Start 10/12/17 at 11:30; Stop 10/12/17 at 12:31; Status DC Dextrose (D50w (Vial) Inj) 50 ml UNSCH PRN IV PUSH HYPOGLYCEMIA-SEE COMMENTS; Start 10/12/17 at 12:00 Glucagon (Glucagon Inj) 1 mg UNSCH PRN OTHER HYPOGLYCEMIA-SEE COMMENTS; Start 10/12/17 at 12:00 Insulin Aspart (NovoLOG SUPPLEMENTAL SCALE) 1 ACHS SLIDING SCALE SQ Last administered on 10/13/17 22:15; Start 10/12/17 at 12:00 Sodium Chloride 1,000 ml @ 70 mls/hr [id number] IV Last administered on 06:33; Start 10/12/17 at 11:52 Sodium Chloride (NS Flush) 2 ml UNSCH PRN IV FLUSH FLUSH AFTER USING IV ACCESS ; Start 10/12/17 at 12:00 Sodium Chloride (NS Flush) 2 ml BID IV FLUSH Last administered on 10/13/17 20: 53; Start 10/12/17 at 21:00 Acetaminophen (Tylenol) 650 mg Q4H PRN PO TEMP > 100.4; Start 10/12/17 at 12:00 Ondansetron HCl (Zofran Inj) 4 mg Q6H PRN IVP NAUSEA OR VOMITING; Start at 12:00 Acetaminophen (Tylenol) 650 mg Q6H PRN PO PAIN SCALE 1 TO 2; Start 10/12/17 at 12:00 Naloxone HCl (Narcan Inj) 0.4 mg UNSCH PRN IV PUSH SEE LABEL COMMENTS; Start 10/12/17 at 12:00 Magnesium Hydroxide (Milk Of Douglas Liq) 30 ml Q12H PRN PO Mild constipation ; Start 10/12/17 at 12:00 Lactobacillus Acidophilus (Lactinex) 1 tab Q12HR PO Last administered on 10:00; Start 10/12/17 at 21:00 Pharmacy Profile Note 0 ml @ 0 mls/hr UNSCH PRN OTHER ADJUST FOR CREATININE CLRNCE; Start 10/12/17 at 12:00 Vancomycin HCl 1250 mg/Sodium Chloride 262.5 ml @ 262.5 mls/ hr Q12H IV ; Start 10/13/17 at 09:00; Status Cancel Piperacillin Sod/ Tazobactam Sod 50 ml @ 100 mls/hr Q8H IV Last administered on 10/14/17 04:52; Start 10/12/17 at 20:00 Vancomycin HCl 1000 mg/Sodium Chloride 250 ml @ 250 mls/hr Q12H IV Last administered on 10/14/17 03:38; Start 10/13/17 at 00:00 Miscellaneous Information SPECIFIC LAB TO BE PAPITO... ONCE ONCE .XX Last administered on 10/14/17 03:00; Start 10/13/17 at 23:45; Stop 10/13/17 at 23:46 ; Status DC Aspirin (Aspirin Chew) 81 mg BID CHEW Last administered on 10/14/17 10:00; Start 10/12/17 at 21:00 Donepezil HCl (Aricept) 5 mg HS PO Last administered on 10/13/17 20:53; Start 10/12/17 at 21:00 Escitalopram Oxalate (Lexapro) 5 mg DAILY PO Last administered on 10/14/17 10: 00; Start 10/13/17 at 09:00 Glyburide (Diabeta) 5 mg DAILY@0800 PO Last administered on 10/14/17 10:00; Start 10/13/17 at 08:00 Hydrocortisone (Cortef) 2.5 mg DAILY PO Last administered on 10/14/17 10:00; Start 10/13/17 at 09:00 Levothyroxine Sodium (Synthroid) 100 mcg DAILY@0600 PO Last administered on 06:33; Start 10/13/17 at 06:00 Lisinopril (Prinivil) 10 mg DAILY PO Last administered on 10/13/17 08:43; Start 10/13/17 at 09:00; Status Future Hold Metoprolol Succinate (Toprol Xl) 50 mg DAILY PO Last administered on 10/14/17 09:59; Start 10/13/17 at 09:00 Potassium Chloride (KCl) 20 meq DAILY PO Last administered on 10/14/17 10:00; Start 10/13/17 at 09:00 Silver Sulfadiazine (Silvadene 1% Cream (50 Gm)) 1 applic DAILY PRN TOPICAL APPLY TO AFFECTED AREA S/P; Start 10/12/17 at 14:30 Tamsulosin HCl (Flomax) 0.4 mg DAILY PO Last administered on 10/14/17 10:00; Start 10/13/17 at 09:00 Non-Formulary Medication 50 mg TID PO ; Start 10/12/17 at 18:00; Status UNV Miscellaneous (Pill Splitter) 1 ea UNSCH PRN OTHER SEE LABEL COMMENTS; Start 10/12/17 at 14:45 Enalaprilat (Vasotec Inj) 2.5 mg Q6H PRN IV PUSH SBP>160, DBP>90 Last administered on 10/13/17 06:34; Start 10/12/17 at 15:00 Clonidine (Catapres) 0.1 mg Q6H PRN PO SBP>160, DBP>90 Last administered on 17:00; Start 10/12/17 at 15:00 Influenza Virus Vaccine (Flu (Quadrivalent) Vaccine Inj) 0.5 ml ONCE ONCE IM Last administered on 10/13/17 08:42; Start 10/13/17 at 10:00; Stop 10/13/17 at 10:01; Status DC Metoprolol Tartrate (Lopressor) 12.5 mg ONCE ONCE PO Last administered on 10/12 20:36; Start 10/12/17 at 20:30; Stop 10/12/17 at 20:31; Status DC Diltiazem HCl (Cardizem Inj) 15 mg ONCE ONCE IV PUSH Last administered on 10/13 04:48; Start 10/13/17 at 04:15; Stop 10/13/17 at 04:16; Status DC Diltiazem HCl 125 mg/Sodium Chloride 125 ml @ 5 mls/hr TITRATE PRN IV Tachycardia Last administered on 10/13/17 14:07; Start 10/13/17 at 04:15 Diltiazem HCl (Cardizem) 30 mg Q6HR PO Last administered on 10/14/17 00:15; Start 10/13/17 at 13:00 Miscellaneous Information SPECIFIC LAB TO BE DRAWN:VANCOMYCIN TROUGH DATE TO... ONCE ONCE .XX ; Start 10/15/17 at 23:45; Stop 10/15/17 at 23:46 A/P Problem List: (1) Sepsis ICD Code: A41.9 - Sepsis, unspecified organism Status: Resolved (2) UTI (urinary tract infection) ICD Code: N39.0 - Urinary tract infection, site not specified Status: Acute (3) Suprapubic catheter dysfunction ICD Code: T83.010A - Breakdown (mechanical) of cystostomy catheter, initial encounter (4) Hypertension ICD Code: I10 - Essential (primary) hypertension Status: Chronic (5) Diabetes mellitus ICD Code: E11.9 - Type 2 diabetes mellitus without complications Status: Chronic Assessment and Plan A/P Sepsis with Complicated UTI Failed Outpatient Treatment. +Suprapubic catheter. -Suprapubic catheter exchanged in the ED 10/12 -UC with MRSA -Started on antibiotics with IV Vanco and IV Zosyn - continue on IVF hydration at 70cc/hr -follow the blood cultures. -Monitor CBC Fatigue/Weakness/Inability to Ambulate/Difficulty with ADLs: suspect multifactorial secondary to recent infections, hospitalizations, and advanced age. Patient lives alone. -consulted PT/OT-will wait till tomorrow when the HR is better controlled. A-fib with RVR starteded back on Cardizem drip- will continue metoprolol- will increase po cardizem continue to monitor; will try to taper off the Cardizem drip. Diabetes Mellitus with Hyperglycemia: blood glucose 332 upon arrival. Last HgbA1c 12.1 on 07/25/17. -continue patient's acarbose and glyburide, hold patient's metformin -Monitor Accu-Checks and cover with medium dose Novolog SSI -hypoglycemia protocol -consult soaping department supervisor and certified adaptive physical educator Hypertension: chronic, BP fairly well controlled -continue metoprolol- hold lisinopril since po cardizem was added. -monitor BP, adjust antihypertensives as needed Dementia: chronic, stable -continue patient's Aricept Hypothyroidism: chronic, stable -continue patient's synthroid buttock wound; wound care evaluation appreciated. DVT Prophylaxis: teds/SCDs DNR status. [facility] Discharge Planning previously d/w the palliative care; plan for discharge to hospice when HR is better controlled. possible discharge towards the end of the week if HR improves. Shaniqua Jones MD Oct 14, 2017 10:53
[2017-10-14] MEDS: DILTIAZEM HCL 60 MG TAB PO SCH ×2 (11:54→18:42)
--- NOTE | 2017-10-14 14:03 | HHI.HCPN ---
Reason for visit a. To assist with evaluation and management of symptoms including: Decreased appetite, confusion, debility b. To assist medical decision maker(s) with: better understanding of current medical conditions; weighing benefits/burdens of medical treatment options; making medical treatment decisions. . Subjective/Interval History Follow up visit for symptom management and clarification of goals. Mr. Courtney remains in intensive care in A. fib with RVR; started back on the Cardizem drip. Pulse 80s-130s. BP 137-154/70s. Oxygen saturation in the mid 90s on 2-3L via nasal cannula. Patient is increasingly confused today, having intermittent agitation. Speech is garbled. CT head was stable. Nursing reports the patient was to follow some commands and took all his medications while eating 80% of breakfast. Nasal swab detected MRSA. Urine and blood culture both + MRSA. Receiving Vancomycin and Zosyn. Wound care following for recommendations on left lateral ankle wound and wound on sacrum. Family would like to optimize this hospitalization, considering discharge to hospice. . Family/friend interactions Spoke to patient's daughter, Lola, to provide an update on the patient's clinical condition. Goals remain unchanged, likely discharge to hospice after stabilized. . Advance Directives Living Will: Copy in medical record Health Care Surrogate: Copy in medical record Advance Directive Specifics Date completed: 05/23/2015 . Health Care Surrogate(s): Francisca Veliz is the designated [facility] decision-maker. Francisca Monet has been designated as the alternate [facility] decision-maker. . Documented care wishes: The patient completed a standard living will on 05/23/15 stating he wishes that life prolonging procedures be withheld or withdrawn in the event that 2 physicians determine there is no reasonable medical probability of recovery from a terminal condition, an end-stage condition or if he is in a permanent vegetative state. At that time, he wishes to be allowed to peacefully and naturally with only the administration of medication or performance of procedures deemed necessary to provide him comfort. . Significant change in goals: Goals remain unchanged, likely discharge to hospice after stabilized. . Objective Vital Signs Date Time Temp Pulse Resp B/P (MAP) Pulse Ox O2 Delivery O2 Flow Rate FiO2 10/14/17 06:00 89 10/14/17 04:00 98.4 101 20 137/78 (97) 94 10/14/17 04:00 101 10/14/17 02:00 89 10/14/17 02:00 134 137/78 10/14/17 00:00 98.1 102 22 146/73 (97) 94 10/14/17 00:00 102 10/13/17 22:00 101 10/13/17 20:55 96 Nasal Cannula 2.00 10/13/17 20:00 107 10/13/17 20:00 98.1 107 22 154/73 (100) 94 10/13/17 19:00 95 Nasal Cannula 3.00 10/13/17 18:00 94 10/13/17 16:00 82 10/13/17 16:00 97.6 82 23 131/58 (82) 94 10/13/17 16:00 86 110/58 10/13/17 14:07 92 111/66 10/13/17 14:00 113 Intake & Output 10/14/17 10/14/17 07:00 19:00 Intake Total 1590 ml Output Total 1250 ml Balance 340 ml Intake Oral 240 ml IV Total 1350 ml Output Urine Total 1250 ml # Bowel Movements 0 . Physical Exam CONSTITUTIONAL/GENERAL: This is a frail, elderly male patient in no acute distress. TUBES/LINES/DRAINS: Suprapubic catheter, PIV x 2, nasal cannula, soft restraints SKIN: No jaundice, rashes, or lesions. Wounds on left lateral ankle and sacrum. Skin temperature appropriate. Not diaphoretic. HEAD: Atraumatic. Normocephalic. EYES: Pupils equal and round and reactive. No scleral icterus. No injection or drainage. Fundi not examined. ENT: Hearing grossly normal. Nose without bleeding or purulent drainage. NECK: Trachea midline. CARDIOVASCULAR: Tachycardic with irregular rhythm. No Murmurs, gallops, or rubs. No JVD. Peripheral pulses symmetric. RESPIRATORY/CHEST: Symmetric, unlabored respirations. Clear to auscultation. Breath sounds diminished bilaterally. No wheezes, rales, or rhonchi. GASTROINTESTINAL: Abdomen soft, non-tender, nondistended. No guarding. Bowel sounds present. GENITOURINARY: Without palpable bladder distension. Suprapubic catheter in place ending clear, yellow urine MUSCULOSKELETAL: Extremities without clubbing, cyanosis, or edema. No mottling or clubbing. LYMPHATICS: No palpable cervical or supraclavicular adenopathy. NEUROLOGICAL: More lethargic today, increasingly confused with garbled speech. PSYCHIATRIC: No obvious anxiety/depression. No apparent hallucinations or other psychotic thought process. . Diagnostic Tests Laboratory Laboratory Tests Test 10/12/17 09:31 10/12/17 10:00 10/12/17 16:35 10/13/17 05:49 White Blood Count 15.5 TH/MM3 (4.0-11.0) 17.2 TH/MM3 (4.0-11.0) Red Blood Count 4.49 MIL/MM3 (4.50-5.90) 4.78 MIL/MM3 (4.50-5.90) Hemoglobin 12.8 GM/DL (13.0-17.0) 13.7 GM/DL (13.0-17.0) Hematocrit 39.4 % (39.0-51.0) 42.2 % (39.0-51.0) Mean Corpuscular Volume 87.8 FL (80.0-100.0) 88.2 FL (80.0-100.0) Mean Corpuscular Hemoglobin 28.4 PG (27.0-34.0) 28.6 PG (27.0-34.0) Mean Corpuscular Hemoglobin Concent 32.4 % (32.0-36.0) 32.4 % (32.0-36.0) Red Cell Distribution Width 18.2 % (11.6-17.2) 18.6 % (11.6-17.2) Platelet Count 389 TH/MM3 (150-450) 442 TH/MM3 (150-450) Mean Platelet Volume 7.9 FL (7.0-11.0) 8.2 FL (7.0-11.0) Neutrophils (%) (Auto) 83.0 % (16.0-70.0) 81.7 % (16.0-70.0) Lymphocytes (%) (Auto) 10.6 % (9.0-44.0) 10.7 % (9.0-44.0) Monocytes (%) (Auto) 6.1 % (0.0-8.0) 6.9 % (0.0-8.0) Eosinophils (%) (Auto) 0.1 % (0.0-4.0) 0.5 % (0.0-4.0) Basophils (%) (Auto) 0.2 % (0.0-2.0) 0.2 % (0.0-2.0) Neutrophils # (Auto) 12.9 TH/MM3 (1.8-7.7) 14.1 TH/MM3 (1.8-7.7) Lymphocytes # (Auto) 1.6 TH/MM3 (1.0-4.8) 1.8 TH/MM3 (1.0-4.8) Monocytes # (Auto) 0.9 TH/MM3 (0-0.9) 1.2 TH/MM3 (0-0.9) Eosinophils # (Auto) 0.0 TH/MM3 (0-0.4) 0.1 TH/MM3 (0-0.4) Basophils # (Auto) 0.0 TH/MM3 (0-0.2) 0.0 TH/MM3 (0-0.2) CBC Comment DIFF FINAL DIFF FINAL Differential Comment Blood Urea Nitrogen 26 MG/DL (7-18) 21 MG/DL (7-18) Creatinine 0.67 MG/DL (0.60-1.30) 0.60 MG/DL (0.60-1.30) Random Glucose 332 MG/DL (74-106) 226 MG/DL (74-106) Total Protein 6.5 GM/DL (6.4-8.2) 6.9 GM/DL (6.4-8.2) Albumin 2.0 GM/DL (3.4-5.0) 2.1 GM/DL (3.4-5.0) Calcium Level 7.8 MG/DL (8.5-10.1) 8.2 MG/DL (8.5-10.1) Alkaline Phosphatase 85 U/L (45-117) 83 U/L (45-117) Aspartate Amino Transf (AST/SGOT) 9 U/L (15-37) 17 U/L (15-37) Alanine Aminotransferase (ALT/SGPT) 11 U/L (12-78) 8 U/L (12-78) Total Bilirubin 0.4 MG/DL (0.2-1.0) 0.4 MG/DL (0.2-1.0) Sodium Level 135 MEQ/L (136-145) 136 MEQ/L (136-145) Potassium Level 3.5 MEQ/L (3.5-5.1) 3.8 MEQ/L (3.5-5.1) Chloride Level 101 MEQ/L (98-107) 102 MEQ/L (98-107) Carbon Dioxide Level 25.6 MEQ/L (21.0-32.0) 23.8 MEQ/L (21.0-32.0) Anion Gap 8 MEQ/L (5-15) 10 MEQ/L (5-15) Estimat Glomerular Filtration Rate 112 ML/MIN (>89) 127 ML/MIN (>89) Hemoglobin A1c 8.9 % (4.3-6.0) Urine Color YELLOW (YELLW/STRAW) Urine Turbidity CLOUDY (CLEAR) Urine pH 6.0 (5.0-8.5) Urine Specific [place] 1.017 (1.002-1.035) Urine Protein 30 mg/dL (NEG-TRACE) Urine Glucose (UA) 1000 mg/dL (NEG) Urine Ketones 10 mg/dL (NEG) Urine Occult Blood MOD (NEG) Urine Nitrite NEG (NEG) Urine Bilirubin NEG (NEG) Urine Urobilinogen LESS THAN 2.0 MG/DL (LESS Urine Leukocyte Esterase LARGE (NEG) Urine RBC 168 /hpf (0-3) Urine WBC /hpf (0-5) Urine WBC Clumps OCC (NONE) Urine Bacteria FEW /hpf (NONE) Urine Mucus FEW /lpf (OCC) Microscopic Urinalysis Comment CATH-CULTURE IND Lactic Acid Level 1.6 mmol/L (0.4-2.0) Test 10/13/17 09:30 10/14/17 02:49 Nasal Screen MRSA (PCR) MRSA DETECTED (NOT DETECT) Vancomycin Level Trough 11.3 MCG/ML (5.0-10.0) . Result Diagram: 10/13/17 0549 10/13/17 0549 Microbiology Microbiology Date/Time Source Procedure Growth Status 10/12/17 16:50 Blood Peripheral Aerobic Blood Culture - Preliminary S. Aureus Mrsa Resulted 10/12/17 16:50 Blood Peripheral Anaerobic Blood Culture - Preliminary NO GROWTH IN 2 DAYS Resulted 10/12/17 16:35 Blood Peripheral Aerobic Blood Culture - Preliminary NO GROWTH IN 2 DAYS Resulted 10/12/17 16:35 Blood Peripheral Anaerobic Blood Culture - Preliminary NO GROWTH IN 2 DAYS Resulted 10/12/17 10:00 Urine Catheterized Urine Urine Culture - Final S. Aureus Mrsa Complete . Imaging Last [address] 10/14/17 0000 Signed Impressions: Service Date/Time: Saturday, October 14, 2017 05:16 - CONCLUSION: Stable noncontrast head CT. Emanuel Gandara MD . Assessment and Plan Disease Oriented Problem List: (1) Dementia (2) Hypothyroidism (3) Sepsis (4) UTI (urinary tract infection) (5) Hypertension (6) Diabetes mellitus Symptom Scale: (1) Decrease in appetite (2) Debility (3) Confusion Pertinent Non-Medical Issues Psychosocial:Patient is originally from [place]. He lived in [place], [place] for many years. 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 His in 2004. The patient has 5 adult children. Two daughters live in [place]; Two sons live in [place] and one son who lives in [place] and is estranged from the family. The patient's daughter states "being cognitively sharp" is probably the most important thing to her father. Spiritual: Protestant pam Legal: HCS and Living will completed on 05/23/2015. Franciscatesha Veliz is the designated [facility]CS decision-maker. Francisca Monet has been designated as the alternate [facility] decision-maker. The patient completed a standard living will on stating he wishes that life prolonging procedures be withheld or withdrawn in the event that 2 physicians determine there is no reasonable medical probability of recovery from a terminal condition, an end-stage condition or if he is in a permanent vegetative state. At that time, he wishes to be allowed to peacefully and naturally with only the administration of medication or performance of procedures deemed necessary to provide him comfort. Ethical issues impacting care: No known ethical issues impacting care at this time. . Important Contacts Lola Veliz, daughter: [phone] . Prognosis Mr. Courtney is an 89 year old man with a complex medical history who as significantly declined in the past 6 moths. He has had multiple hospitalizations for recurrent UTIs, sepsis, pneumonia, C. difficile and bladder outlet obstruction from BPH requiring a suprapubic catheter. The patient has become progressively more weak, lethargic and confused. He has had a reported weight loss of 50 pounds in the past year and is now too weak to ambulate. Given this patient's advanced age, significant loss in functional status and recurrent infections, his over all prognosis is poor and he is hospice appropriate should his medical treatment goals become comfort focused. . Code Status: No Code Plan * NO CODE- DNR/DNI * Decision-making: Patient currently does not have insight or judgment related to his clinical conditions; it is unclear if the patient will regain capacity. Francisca Veliz is the designated [facility] decision-maker. Francisca Monet has been designated as the alternate [facility] decision-maker. * The patient completed a standard living will on 05/23/15 stating he wishes that life prolonging procedures be withheld or withdrawn in the event that 2 physicians determine there is no reasonable medical probability of recovery from a terminal condition, an end-stage condition or if he is in a permanent vegetative state. At that time, he wishes to be allowed to peacefully and naturally with only the administration of medication or performance of procedures deemed necessary to provide him comfort. * Goals is to optimize the current hospitalization and likely transition to hospice services upon discharge. * Discussed patient with bedside nurse, Monique. * History of recurrent UTI infections and C. difficile. Urine and blood cultures + MRSA. Patient is currently on Vancomycin and Zosyn, may benefit from ID consultations for recommendations. * Palliative care contacted patient's daughter, Lola, to provide an update on patient's clinical condition. * Symptom management-decreased appetite: Decreased appetite with associated weight loss reported. Patient's daughter reports a 50 pound weight loss in the past 12 months. BMI: 23.1; albumin 2. * Symptom management-confusion: Patient has some degree of dementia at baseline and is on Aricept at home. His confusion is likely exacerbated secondary to current clinical condition, recurrent UTI, hospitalization in the ICU. Will continue to monitor patient closely to ensure safety and reorient patient as appropriate. * Symptom management-debility: Patient has become progressively more weak in recent months. He is no longer able to ambulate per his daughter's report. Occupational and physical therapy has been consulted but are currently being held status post change in status this morning and transfer to intensive care unit. * Palliative care will continue to follow this patient throughout his hospitalization to establish trust, assist with symptom management and clarification of medical treatment goals. . Attestation To help prompt me to consider important information that might be impacting today's encounter and assessment, information from prior notes written by myself or my colleagues may have been "brought forward" into today's note. My signature on this note, however, is an attestation that I personally performed the exam, history, and/or decision-making noted today, and, unless otherwise indicated, the interactions with patient, family, and staff as well as the review of records all occurred today. I also attest that the listed assessment and stated plan reflect my best clinical judgment today based on the combination of historical information, prior notes, and today's exam/ interactions. When time spent is documented, it refers only to time spent today by the signer, or if indicated, combined time spent today by collaborating physician/nurse practitioner. . Nati Concepcion Oct 14, 2017 14:03
--- NOTE | 2017-10-14 15:41 | PQ ---
Physician Query Response Document PATIENT: MARIAM RUGGIERO : 1925 ADMIT DATE: 10/12/2017 11:57 AM DISCH DATE: RESPONDING PROVIDER #: [email or web address] QUERY TEXT: Cause and Effect Relationship Please clarify in documentation the relationship, if any, between _UTI ____and__INDWELLING CATHETER__ __ Such as: -- Conditions are due to or associated -- Unrelated to each other -- Other, please specify The patient's Clinical Indicators include: An at-home urinalysis was performed which revealed a UTI and he was started on Ciprofloxacin yesterda y by his PCP. However, today the patient continued to worsen ADMITTED WITH Sepsis with Complicated UTI Suprapubic catheter exchanged in the ED 10/12 Query created by: Lola Gao on 10/14/2017 3:16 PM RESPONSE TEXT: Complicated UTI; catheter -associated. Electronically signed by: Shaniqua Jones MD 10/14/2017 3:38 PM
[2017-10-14] MEDS: DONEPEZIL HCL 5 MG TAB PO SCH (19:48)
[2017-10-15] VITALS (13 sets, daily range): BP systolic 114–156; BP diastolic 60–88; PULSE 71–102; RESP 18–26; TEMP 97.2–98.8; O2SAT 92–96
[2017-10-15] MEDS: VANCOMYCIN 1,000 MG/NS 250 ML IV SCH ×4 (00:33→11:32)
[2017-10-15] MEDS: DILTIAZEM HCL 60 MG TAB PO SCH ×4 (00:34→17:32)
[2017-10-15] MEDS: PIPERACIL-TAZO 3.375 GM PREMIX 50 ML IV SCH (03:59)
[2017-10-15] MEDS: LEVOTHYROXINE SODIUM 100 MCG TAB PO SCH (05:51)
[2017-10-15] MEDS: INSULIN ASPART SUPPLEMENTAL SCALE SQ SCH ×4 (08:00→21:42)
[2017-10-15] MEDS: METOPROLOL SUCCINATE 50 MG EXTENDED RELEASE TAB PO SCH (08:10)
[2017-10-15] MEDS: ESCITALOPRAM OXALATE 10 MG TAB PO SCH (08:11)
[2017-10-15] MEDS: POTASSIUM CHLORIDE 20 MEQ CONTROLLED RELEASE TAB PO SCH (08:11)
[2017-10-15] MEDS: LACTOBACILLUS ACIDOPHILUS TAB PO SCH ×2 (08:12→21:40)
[2017-10-15] MEDS: ASPIRIN 81 MG CHEW TAB CHEW SCH ×2 (08:12→21:40)
[2017-10-15] MEDS: TAMSULOSIN HCL 0.4 MG CAP PO SCH (08:13)
[2017-10-15] MEDS: glyBURIDE 5 MG TAB PO SCH (08:13)
[2017-10-15] MEDS: HYDROCORTISONE 10 MG TAB PO SCH (08:13)
[2017-10-15] MEDS: SODIUM CHLORIDE 0.9% FLUSH 10 ML FLUSH IV FLUSH SCH ×2 (08:13→21:41)
[2017-10-15 08:20] LABS: AUTOMATED NEUTROPHIL # 11.2 TH/MM3 (1.8-7.7); BASOPHIL # 0.1 TH/MM3 (0-0.2); BASOPHIL % 0.4 % (0.0-2.0); EOSINOPHIL # 0.4 TH/MM3 (0-0.4); EOSINOPHIL % 2.9 % (0.0-4.0); HEMATOCRIT 42.3 % (39.0-51.0); HEMO FLAGS DIFF FINAL; LYMPH % 15.3 % (9.0-44.0); LYMPHOCYTE # 2.2 TH/MM3 (1.0-4.8); MEAN CELL VOLUME 90.9 FL (80.0-100.0); MEAN CORPUSCULAR HEMOGLOBIN 28.7 PG (27.0-34.0); MEAN CORPUSCULAR HGB CONC 31.6 % (32.0-36.0); MONO % 5.4 % (0.0-8.0); PLATELET COUNT 410 TH/MM3 (150-450); RED BLOOD COUNT 4.66 MIL/MM3 (4.50-5.90); RED CELL DISTRIBUTION WIDTH 18.8 % (11.6-17.2); WHITE BLOOD COUNT 14.7 TH/MM3 (4.0-11.0)
[2017-10-15 08:51] LABS: BICARBONATE 24.5 MEQ/L (21.0-32.0); POTASSIUM 3.8 MEQ/L (3.5-5.1)
[2017-10-15] MEDS: SODIUM CHLOR 0.9% 1000 ML INJ 1,000 ML IV SCH (10:43)
--- NOTE | 2017-10-15 10:49 | HHI.PR ---
Subjective Remarks in no acute distress. pleasantly confused. afebrile. off the Cardizem drip. d/w the RN. Objective Vitals Vital Signs Date Time Temp Pulse Resp B/P (MAP) Pulse Ox O2 Delivery O2 Flow Rate FiO2 10/15/17 10:00 96 10/15/17 08:00 97.2 74 20 127/63 (84) 93 10/15/17 08:00 74 10/15/17 07:41 92 Nasal Cannula 2.00 10/15/17 07:00 93 Nasal Cannula 3.00 10/15/17 06:00 86 10/15/17 04:00 98.8 83 18 156/88 (110) 92 10/15/17 04:00 88 10/15/17 02:00 86 10/15/17 00:00 98.0 71 26 114/60 (78) 94 10/15/17 00:00 71 10/14/17 22:00 71 10/14/17 20:00 75 10/14/17 20:00 98.0 75 18 131/72 (91) 95 10/14/17 19:55 95 Nasal Cannula 2.00 10/14/17 19:00 95 Nasal Cannula 3.00 10/14/17 18:00 88 10/14/17 16:00 84 10/14/17 16:00 98.0 84 18 127/62 (83) 94 10/14/17 14:00 91 10/14/17 13:00 90 121/90 10/14/17 12:00 82 10/14/17 12:00 98.0 82 26 145/74 (97) 95 I/O 10/14/17 10/14/17 10/14/17 10/15/17 10/15/17 10/15/17 07:00 15:00 23:00 07:00 15:00 23:00 Intake Total 1540 ml 300 ml 1410 ml 540 ml Output Total 1250 ml 1400 ml 1000 ml Balance 290 ml 300 ml 10 ml -460 ml Intake Oral 240 ml 360 ml 240 ml IV Total 1300 ml 300 ml 1050 ml 300 ml Output Urine Total 1250 ml 1400 ml 1000 ml # Bowel Movements 0 1 1 Result Diagram: 10/15/17 0655 10/15/17 0655 Imaging Last Impressions Head CT 10/14/17 0000 Signed Impressions: Service Date/Time: Saturday, October 14, 2017 05:16 - CONCLUSION: Stable noncontrast head CT. Emanuel Gandara MD Objective Remarks GENERAL: elderly male, in no apparent distress. CARDIOVASCULAR: tachycardic with irregular rhythm without murmurs, gallops, or rubs. RESPIRATORY: Clear to auscultation. Breath sounds equal bilaterally. No wheezes , rales, or rhonchi. GASTROINTESTINAL: Abdomen soft, non-tender, nondistended. Normal, active bowel sounds MUSCULOSKELETAL: Extremities without clubbing, cyanosis, or edema. NEURO: awake and alert. Medications and IVs Current Medications Sodium Chloride 1,000 ml @ 2,000 mls/hr Q30M ONCE IV Last administered on 10/12 10:45; Start 10/12/17 at 10:00; Stop 10/12/17 at 10:29; Status DC Vancomycin HCl 1500 mg/Sodium Chloride 515 ml @ 257.5 mls/ hr ONCE ONCE IV Last administered on 10/12/17 13:50; Start 10/12/17 at 11:30; Stop 10/12/17 at 13:29; Status DC Gentamicin Sulfate 80 mg/ Sodium Chloride 102 ml @ 100 mls/hr ONCE ONCE IV Last administered on 10/12/17 12:08; Start 10/12/17 at 11:30; Stop 10/12/17 at 12:31; Status DC Dextrose (D50w (Vial) Inj) 50 ml UNSCH PRN IV PUSH HYPOGLYCEMIA-SEE COMMENTS; Start 10/12/17 at 12:00 Glucagon (Glucagon Inj) 1 mg UNSCH PRN OTHER HYPOGLYCEMIA-SEE COMMENTS; Start 10/12/17 at 12:00 Insulin Aspart (NovoLOG SUPPLEMENTAL SCALE) 1 ACHS SLIDING SCALE SQ Last administered on 10/13/17 22:15; Start 10/12/17 at 12:00 Sodium Chloride 1,000 ml @ 70 mls/hr [id number] IV Last administered on 21:32; Start 10/12/17 at 11:52 Sodium Chloride (NS Flush) 2 ml UNSCH PRN IV FLUSH FLUSH AFTER USING IV ACCESS ; Start 10/12/17 at 12:00 Sodium Chloride (NS Flush) 2 ml BID IV FLUSH Last administered on 10/15/17 08: 13; Start 10/12/17 at 21:00 Acetaminophen (Tylenol) 650 mg Q4H PRN PO TEMP > 100.4; Start 10/12/17 at 12:00 Ondansetron HCl (Zofran Inj) 4 mg Q6H PRN IVP NAUSEA OR VOMITING; Start at 12:00 Acetaminophen (Tylenol) 650 mg Q6H PRN PO PAIN SCALE 1 TO 2; Start 10/12/17 at 12:00 Naloxone HCl (Narcan Inj) 0.4 mg UNSCH PRN IV PUSH SEE LABEL COMMENTS; Start 10/12/17 at 12:00 Magnesium Hydroxide (Milk Of Douglas Liq) 30 ml Q12H PRN PO Mild constipation ; Start 10/12/17 at 12:00 Lactobacillus Acidophilus (Lactinex) 1 tab Q12HR PO Last administered on 08:12; Start 10/12/17 at 21:00 Pharmacy Profile Note 0 ml @ 0 mls/hr UNSCH PRN OTHER ADJUST FOR CREATININE CLRNCE; Start 10/12/17 at 12:00 Vancomycin HCl 1250 mg/Sodium Chloride 262.5 ml @ 262.5 mls/ hr Q12H IV ; Start 10/13/17 at 09:00; Status Cancel Piperacillin Sod/ Tazobactam Sod 50 ml @ 100 mls/hr Q8H IV Last administered on 10/15/17 03:59; Start 10/12/17 at 20:00 Vancomycin HCl 1000 mg/Sodium Chloride 250 ml @ 250 mls/hr Q12H IV Last administered on 10/15/17 00:33; Start 10/13/17 at 00:00 Miscellaneous Information SPECIFIC LAB TO BE PAPITO... ONCE ONCE .XX Last administered on 10/14/17 03:00; Start 10/13/17 at 23:45; Stop 10/13/17 at 23:46 ; Status DC Aspirin (Aspirin Chew) 81 mg BID CHEW Last administered on 10/15/17 08:12; Start 10/12/17 at 21:00 Donepezil HCl (Aricept) 5 mg HS PO Last administered on 10/14/17 19:48; Start 10/12/17 at 21:00 Escitalopram Oxalate (Lexapro) 5 mg DAILY PO Last administered on 10/15/17 08: 11; Start 10/13/17 at 09:00 Glyburide (Diabeta) 5 mg DAILY@0800 PO Last administered on 10/15/17 08:13; Start 10/13/17 at 08:00 Hydrocortisone (Cortef) 2.5 mg DAILY PO Last administered on 10/15/17 08:13; Start 10/13/17 at 09:00 Levothyroxine Sodium (Synthroid) 100 mcg DAILY@0600 PO Last administered on 05:51; Start 10/13/17 at 06:00 Lisinopril (Prinivil) 10 mg DAILY PO Last administered on 10/13/17 08:43; Start 10/13/17 at 09:00; Status Future Hold Metoprolol Succinate (Toprol Xl) 50 mg DAILY PO Last administered on 10/15/17 08:10; Start 10/13/17 at 09:00 Potassium Chloride (KCl) 20 meq DAILY PO Last administered on 10/15/17 08:11; Start 10/13/17 at 09:00 Silver Sulfadiazine (Silvadene 1% Cream (50 Gm)) 1 applic DAILY PRN TOPICAL APPLY TO AFFECTED AREA S/P; Start 10/12/17 at 14:30 Tamsulosin HCl (Flomax) 0.4 mg DAILY PO Last administered on 10/15/17 08:13; Start 10/13/17 at 09:00 Non-Formulary Medication 50 mg TID PO ; Start 10/12/17 at 18:00; Status UNV Miscellaneous (Pill Splitter) 1 ea UNSCH PRN OTHER SEE LABEL COMMENTS; Start 10/12/17 at 14:45 Enalaprilat (Vasotec Inj) 2.5 mg Q6H PRN IV PUSH SBP>160, DBP>90 Last administered on 10/13/17 06:34; Start 10/12/17 at 15:00 Clonidine (Catapres) 0.1 mg Q6H PRN PO SBP>160, DBP>90 Last administered on 17:00; Start 10/12/17 at 15:00 Influenza Virus Vaccine (Flu (Quadrivalent) Vaccine Inj) 0.5 ml ONCE ONCE IM Last administered on 10/13/17 08:42; Start 10/13/17 at 10:00; Stop 10/13/17 at 10:01; Status DC Metoprolol Tartrate (Lopressor) 12.5 mg ONCE ONCE PO Last administered on 10/12 20:36; Start 10/12/17 at 20:30; Stop 10/12/17 at 20:31; Status DC Diltiazem HCl (Cardizem Inj) 15 mg ONCE ONCE IV PUSH Last administered on 10/13 04:48; Start 10/13/17 at 04:15; Stop 10/13/17 at 04:16; Status DC Diltiazem HCl 125 mg/Sodium Chloride 125 ml @ 5 mls/hr TITRATE PRN IV Tachycardia Last administered on 10/13/17 14:07; Start 10/13/17 at 04:15 Diltiazem HCl (Cardizem) 30 mg Q6HR PO Last administered on 10/14/17 00:15; Start 10/13/17 at 13:00; Stop 10/14/17 at 10:55; Status DC Miscellaneous Information SPECIFIC LAB TO BE DRAWN:VANCOMYCIN TROUGH DATE TO... ONCE ONCE .XX ; Start 10/15/17 at 23:45; Stop 10/15/17 at 23:46 Diltiazem HCl (Cardizem) 60 mg Q6HR PO Last administered on 10/15/17 05:51; Start 10/14/17 at 12:00 A/P Problem List: (1) Sepsis ICD Code: A41.9 - Sepsis, unspecified organism Status: Resolved (2) UTI (urinary tract infection) ICD Code: N39.0 - Urinary tract infection, site not specified Status: Acute (3) Suprapubic catheter dysfunction ICD Code: T83.010A - Breakdown (mechanical) of cystostomy catheter, initial encounter (4) Hypertension ICD Code: I10 - Essential (primary) hypertension Status: Chronic (5) Diabetes mellitus ICD Code: E11.9 - Type 2 diabetes mellitus without complications Status: Chronic Assessment and Plan A/P Sepsis with Complicated UTI Failed Outpatient Treatment. +Suprapubic catheter. -Suprapubic catheter exchanged in the ED 10/12 -UC with MRSA -continue IV Vancomycin - continue on IVF hydration at 70cc/hr Bacteremia with MRSA- continue IV Vanco- will repeat the blood cultures- check echo and consult ID. Fatigue/Weakness/Inability to Ambulate/Difficulty with ADLs: suspect multifactorial secondary to recent infections, hospitalizations, and advanced age. Patient lives alone. -consulted PT/OT- A-fib with RVR- HR better controlled. - will continue metoprolol and po cardizem continue to monitor. Diabetes Mellitus with Hyperglycemia: blood glucose 332 upon arrival. Last HgbA1c 12.1 on 07/25/17. -continue patient's acarbose and glyburide, hold patient's metformin -Monitor Accu-Checks and cover with medium dose Novolog SSI -hypoglycemia protocol -consulted oven heater and religious educator Hypertension: chronic, BP fairly well controlled -continue metoprolol- hold lisinopril since po cardizem was added. -monitor BP, adjust antihypertensives as needed Dementia: chronic, stable -continue patient's Aricept Hypothyroidism: chronic, stable -continue patient's synthroid buttock wound; wound care evaluation appreciated. DVT Prophylaxis: teds/SCDs DNR status. [facility]. Discharge Planning previously d/w the palliative care; plan for discharge to hospice before discharge- pending ID evaluation. Shaniqua Jones MD Oct 15, 2017 10:49
--- NOTE | 2017-10-15 15:03 | PD.CONS ---
History of Present Illness Service infectious disease Consult Requested By Dr Jones Reason for Consult evaluate patient with MRSA bacteremia Primary Care Physician Chris Leblanc MD Diagnoses: History of Present Illness patient seen and examined. Records reviewed. Patient is an 89-year-old male, who lives at home, brought into the hospital for further evaluation of increasing lethargy, and confusion. Patient lives at home alone, and usually the family arranges for [employer] to check up on him or stay with him during the day. He has had problem with multiple UTIs, and apparently his urine was tested and there was some evidence of UTI, and Cipro was called in. Patient however did not start Cipro because he was getting more confused so he was taken to the hospital for further evaluation and treatment. His been noted to be getting some hallucination. There's been no fever or chills or sweats. No noted respiratory problem. He has not had any nausea or vomiting or any diarrhea. Patient also since his been lethargic has not been ambulating as before. Patient has not been febrile. His WBC was elevated. His suprapubic catheter was changed in the emergency room. Apparently gets changed once a month. Patient could not tell me when the last time it was change but during his last hospitalization in August, he underwent cystoscopy, evacuation of hematoma and exchange of his suprapubic catheter done by Dr. Armstrong. 1 out of the 2 blood cultures growing MRSA. His urine culture has MRSA. He has had previous urine culture that had MRSA. Infectious disease consultation has been requested to evaluate the patient. Patient currently remains very confused. Review of Systems ROS Limitations: Altered Mental Status Past Family Social History Allergies: Coded Allergies: adhesive tape (Verified Allergy, Severe, Hives, 10/12/17) hydrocodone (Verified Allergy, Severe, HIVES, 10/12/17) Past Medical History DM Hypertension Hyperlipidemia BPH obstructive uropathy s/p suprapubic catheter recurrent UTIs Hiatal hernia gastric ulcers hypothyroidism Past Surgical History Cataract extractions Tonsillectomy Cystoscopy with suprapubic catheter placement Gastric perforation repair Active Ordered Medications Current Medications Medications (Trade) Dose Ordered Sig/Shanel Route Start Time Stop Time Status Last Admin (D50w (Vial) Inj) 50 ml UNSCH PRN IV PUSH 10/12/17 12:00 (Glucagon Inj) 1 mg UNSCH PRN OTHER 10/12/17 12:00 (NovoLOG SUPPLEMENTAL SCALE) 1 ACHS SLIDING SCALE SQ 10/12/17 12:00 10/15/17 11:32 Sodium Chloride 1,000 ml @ 70 mls/hr [id number] IV 10/12/17 11:52 10/15/17 10:43 (NS Flush) 2 ml UNSCH PRN IV FLUSH 10/12/17 12:00 (NS Flush) 2 ml BID IV FLUSH 10/12/17 21:00 10/15/17 08:13 (Tylenol) 650 mg Q4H PRN PO 10/12/17 12:00 (Zofran Inj) 4 mg Q6H PRN IVP 10/12/17 12:00 (Tylenol) 650 mg Q6H PRN PO 10/12/17 12:00 (Narcan Inj) 0.4 mg UNSCH PRN IV PUSH 10/12/17 12:00 (Milk Of Magnesia Liq) 30 ml Q12H PRN PO 10/12/17 12:00 (Lactinex) 1 tab Q12HR PO 10/12/17 21:00 10/15/17 08:12 Pharmacy Profile Note 0 ml @ 0 mls/hr UNSCH PRN OTHER 10/12/17 12:00 Vancomycin HCl 1000 mg/Sodium Chloride 250 ml @ 250 mls/hr Q12H IV 10/13/17 00:00 10/15/17 11:32 (Aspirin Chew) 81 mg BID CHEW 10/12/17 21:00 10/15/17 08:12 (Aricept) 5 mg HS PO 10/12/17 21:00 10/14/17 19:48 (Lexapro) 5 mg DAILY PO 10/13/17 09:00 10/15/17 08:11 (Diabeta) 5 mg DAILY@0800 PO 10/13/17 08:00 10/15/17 08:13 (Cortef) 2.5 mg DAILY PO 10/13/17 09:00 10/15/17 08:13 (Synthroid) 100 mcg DAILY@0600 PO 10/13/17 06:00 10/15/17 05:51 (Prinivil) 10 mg DAILY PO 10/13/17 09:00 Future Hold 10/13/17 08:43 (Toprol Xl) 50 mg DAILY PO 10/13/17 09:00 10/15/17 08:10 (KCl) 20 meq DAILY PO 10/13/17 09:00 10/15/17 08:11 (Silvadene 1% Cream (50 Gm)) 1 applic DAILY PRN TOPICAL 10/12/17 14:30 (Flomax) 0.4 mg DAILY PO 10/13/17 09:00 10/15/17 08:13 (Pill Splitter) 1 ea UNSCH PRN OTHER 10/12/17 14:45 (Vasotec Inj) 2.5 mg Q6H PRN IV PUSH 10/12/17 15:00 10/13/17 06:34 (Catapres) 0.1 mg Q6H PRN PO 10/12/17 15:00 10/12/17 17:00 Diltiazem HCl 125 mg/Sodium Chloride 125 ml @ 5 mls/hr TITRATE PRN IV 10/13/17 04:15 10/13/17 14:07 Miscellaneous Information SPECIFIC LAB TO BE DRAWN:VANCOMYCIN TROUGH DATE TO... ONCE ONCE .XX 10/15/17 23:45 10/15/17 23:46 (Cardizem) 60 mg Q6HR PO 10/14/17 12:00 10/15/17 11:32 Family History Maternal family history positive for cancer Social History Lives at home No smoking No alcohol abuse No illicit drugs Physical Exam Vital Signs Vital Signs Date Time Temp Pulse Resp B/P (MAP) Pulse Ox O2 Delivery O2 Flow Rate FiO2 10/15/17 14:00 97 10/15/17 12:00 78 10/15/17 12:00 98.0 78 25 154/73 (100) 96 10/15/17 10:00 96 10/15/17 08:00 97.2 74 20 127/63 (84) 93 10/15/17 08:00 74 10/15/17 07:41 92 Nasal Cannula 2.00 10/15/17 07:00 93 Nasal Cannula 3.00 10/15/17 06:00 86 10/15/17 04:00 98.8 83 18 156/88 (110) 92 10/15/17 04:00 88 10/15/17 02:00 86 10/15/17 00:00 98.0 71 26 114/60 (78) 94 10/15/17 00:00 71 10/14/17 22:00 71 10/14/17 20:00 75 10/14/17 20:00 98.0 75 18 131/72 (91) 95 10/14/17 19:55 95 Nasal Cannula 2.00 10/14/17 19:00 95 Nasal Cannula 3.00 10/14/17 18:00 88 10/14/17 16:00 84 10/14/17 16:00 98.0 84 18 127/62 (83) 94 Physical Exam GENERAL: Patient is a well-nourished, well-developed male, awake and alert, not in respiratory distress. He is confused, and gets easily agitated. SKIN: Warm and dry. No generalized rash, no ecchymoses and no evidence of embolic lesions. HEAD: Atraumatic. Normocephalic. No temporal wasting, or tenderness. EYES: [place] conjunctiva. No petechia or hemorrhage. Pupils equal, round and reactive to light. Extraocular movements full and intact. No scleral icterus. No injection or drainage. EARS, NOSE AND THROAT: Nose without bleeding or purulent nasal discharge. No sinus tenderness. Mucous membranes pink and moist. No oral lesions noted. No exudate. No oral thrush. NECK: Trachea midline. Supple and not tender, no meningeal signs CARDIOVASCULAR: Regular rate and rhythm. No murmurs, rubs or gallops heard RESPIRATORY: Clear to auscultation. Breath sounds equal bilaterally. No rales , wheezing or rhonchi ABDOMEN: Soft, non-tender, nondistended. Bowel sounds present and normoactive. No guarding. No rebound. No organomegaly. SPC site looks ok. He has reducible hernia in mid abdomen EXTREMITIES: No clubbing, cyanosis, or edema.No joint effusion, has good ROM. No calf tenderness. Well perfused and warm. NEUROLOGICAL: Awake and alert. Cranial nerves grossly intact. Motor grossly within normal limits. PSYCHIATRIC: Normal affect, calm and cooperative. LINE: No evidence of infection Laboratory Laboratory Tests Test 10/15/17 06:55 White Blood Count 14.7 Red Blood Count 4.66 Hemoglobin 13.4 Hematocrit 42.3 Mean Corpuscular Volume 90.9 Mean Corpuscular Hemoglobin 28.7 Mean Corpuscular Hemoglobin Concent 31.6 Red Cell Distribution Width 18.8 Platelet Count 410 Mean Platelet Volume 7.9 Neutrophils (%) (Auto) 76.0 Lymphocytes (%) (Auto) 15.3 Monocytes (%) (Auto) 5.4 Eosinophils (%) (Auto) 2.9 Basophils (%) (Auto) 0.4 Neutrophils # (Auto) 11.2 Lymphocytes # (Auto) 2.2 Monocytes # (Auto) 0.8 Eosinophils # (Auto) 0.4 Basophils # (Auto) 0.1 CBC Comment DIFF FINAL Differential Comment Blood Urea Nitrogen 12 Creatinine 0.46 Random Glucose 121 Calcium Level 8.2 Sodium Level 138 Potassium Level 3.8 Chloride Level 103 Carbon Dioxide Level 24.5 Anion Gap 11 Estimat Glomerular Filtration Rate 172 Date/Time Source Procedure Growth Status 10/12/17 16:50 Blood Peripheral Aerobic Blood Culture - Preliminary S. Aureus Mrsa Resulted 10/12/17 16:50 Blood Peripheral Anaerobic Blood Culture - Preliminary NO GROWTH IN 3 DAYS Resulted 10/12/17 10:00 Urine Catheterized Urine Urine Culture - Final S. Aureus Mrsa Complete Result Diagram: 10/15/17 0655 10/15/17 0655 Imaging RADIOLOGY STUDIES/FILMS REVIEWED Head CT 10/14/17 0000 Signed Impressions: Service Date/Time: Saturday, October 14, 2017 05:16 - CONCLUSION: Stable noncontrast head CT. 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
--- NOTE | 2017-10-15 16:14 | HHI.HCPN ---
Reason for visit a. To assist with evaluation and management of symptoms including: Decreased appetite, confusion, debility b. To assist medical decision maker(s) with: better understanding of current medical conditions; weighing benefits/burdens of medical treatment options; making medical treatment decisions. . Subjective/Interval History Follow up visit for symptom management and clarification of goals. Mr. Courtney was seen and assessed in room 1323. Also present his friend ( Nicol) who has been visiting daily. Atrial fibrillation with RVR is now better controlled, and the patient is off the Cardizem drip. He remains on metoprolol and PO Cardizem. Patient denies shortness of breath or pain. His oxygen saturation in the mid 90s on 5L via nasal cannula. Patient remains pleasantly confused today; speech is nonsensical at times. Having some hallucinations; patient states he saw "the place where the gravity was reversed and things that were falling stopped and went back in the opposite direction." Encephalopathy is likely multifactorial; contributing factors include recent hospitalization, sepsis and underlying dementia. CT head on 2016 was stable. Remains afebrile. + Suprapubic catheter which was exchanged in the ED on 2016. Urine culture with MRSA. Bacteremia with MRSA. Infectious disease was consulted for recommendations. Will continue IV vancomycin and follow repeat cultures. CT abdomen/pelvis and echocardiogram is pending. Patient is significantly deconditioned as evidenced by increasing weakness, inability to ambulate or complete ADLs independently. Wound care following for recommendations on left lateral ankle wound and wound on sacrum. Patient was living at home alone with hired caregivers intermittently throughout the day, but there is now concern this is no longer a safe option for the patient who likely needs 24/7 care. Family would like to optimize this hospitalization, considering discharge to hospice. . Family/friend interactions Spoke with Lola (daughter) and updated her on the patient's clinical condition and current medical treatment plan. All questions answered to the best of my ability. Family wishes to completed recommended IV antibiotic course before considering transitioning to hospice. . Advance Directives Living Will: Copy in medical record Health Care Surrogate: Copy in medical record Advance Directive Specifics Date completed: 05/23/2015 . Health Care Surrogate(s): Francisca Veliz is the designated [facility] decision-maker. Francisca Monet has been designated as the alternate [facility] decision-maker. . Documented care wishes: The patient completed a standard living will on 05/23/15 stating he wishes that life prolonging procedures be withheld or withdrawn in the event that 2 physicians determine there is no reasonable medical probability of recovery from a terminal condition, an end-stage condition or if he is in a permanent vegetative state. At that time, he wishes to be allowed to peacefully and naturally with only the administration of medication or performance of procedures deemed necessary to provide him comfort. . Significant change in goals: Family wishes to completed recommended IV antibiotic course before considering transitioning to hospice. . Objective Vital Signs Date Time Temp Pulse Resp B/P (MAP) Pulse Ox O2 Delivery O2 Flow Rate FiO2 10/15/17 14:00 97 10/15/17 12:00 78 10/15/17 12:00 98.0 78 25 154/73 (100) 96 10/15/17 10:00 96 10/15/17 08:00 97.2 74 20 127/63 (84) 93 10/15/17 08:00 74 10/15/17 07:41 92 Nasal Cannula 2.00 10/15/17 07:00 93 Nasal Cannula 3.00 10/15/17 06:00 86 10/15/17 04:00 98.8 83 18 156/88 (110) 92 10/15/17 04:00 88 10/15/17 02:00 86 10/15/17 00:00 98.0 71 26 114/60 (78) 94 10/15/17 00:00 71 10/14/17 22:00 71 10/14/17 20:00 75 10/14/17 20:00 98.0 75 18 131/72 (91) 95 10/14/17 19:55 95 Nasal Cannula 2.00 10/14/17 19:00 95 Nasal Cannula 3.00 10/14/17 18:00 88 10/14/17 16:00 84 10/14/17 16:00 98.0 84 18 127/62 (83) 94 Intake & Output 10/15/17 10/15/17 07:00 19:00 Intake Total 1590 ml 245 ml Output Total 1000 ml Balance 590 ml 245 ml Intake Oral 240 ml IV Total 1350 ml 245 ml Output Urine Total 1000 ml # Bowel Movements 1 . Physical Exam CONSTITUTIONAL/GENERAL: This is a frail, elderly male patient in no acute distress. TUBES/LINES/DRAINS: Suprapubic catheter, PIV x 2, nasal cannula SKIN: Wounds on left lateral ankle and sacrum. Skin temperature appropriate. Not diaphoretic. HEAD: Atraumatic. Normocephalic. EYES: Pupils equal and round and reactive. No scleral icterus. No injection or drainage. Fundi not examined. ENT: Hearing grossly normal. Nose without bleeding or purulent drainage. NECK: Trachea midline. CARDIOVASCULAR: Regularly irregular. No Murmurs, gallops, or rubs. No JVD. Peripheral pulses symmetric. RESPIRATORY/CHEST: Symmetric, unlabored respirations. Clear to auscultation. Breath sounds diminished bilaterally. No wheezes, rales, or rhonchi. GASTROINTESTINAL: Abdomen soft, non-tender, nondistended. No guarding. Bowel sounds present. GENITOURINARY: Without palpable bladder distension. Suprapubic catheter in place ending clear, yellow urine MUSCULOSKELETAL: Extremities without clubbing, cyanosis, or edema. No mottling or clubbing. LYMPHATICS: No palpable cervical or supraclavicular adenopathy. NEUROLOGICAL: Pleasantly confused, non-sensical speech. Easily redirected. PSYCHIATRIC: No obvious anxiety/depression. Intermittent hallucinations reported . Diagnostic Tests Laboratory Laboratory Tests Test 10/12/17 16:35 10/13/17 05:49 10/13/17 09:30 10/14/17 02:49 Lactic Acid Level 1.6 mmol/L (0.4-2.0) White Blood Count 17.2 TH/MM3 (4.0-11.0) Red Blood Count 4.78 MIL/MM3 (4.50-5.90) Hemoglobin 13.7 GM/DL (13.0-17.0) Hematocrit 42.2 % (39.0-51.0) Mean Corpuscular Volume 88.2 FL (80.0-100.0) Mean Corpuscular Hemoglobin 28.6 PG (27.0-34.0) Mean Corpuscular Hemoglobin Concent 32.4 % (32.0-36.0) Red Cell Distribution Width 18.6 % (11.6-17.2) Platelet Count 442 TH/MM3 (150-450) Mean Platelet Volume 8.2 FL (7.0-11.0) Neutrophils (%) (Auto) 81.7 % (16.0-70.0) Lymphocytes (%) (Auto) 10.7 % (9.0-44.0) Monocytes (%) (Auto) 6.9 % (0.0-8.0) Eosinophils (%) (Auto) 0.5 % (0.0-4.0) Basophils (%) (Auto) 0.2 % (0.0-2.0) Neutrophils # (Auto) 14.1 TH/MM3 (1.8-7.7) Lymphocytes # (Auto) 1.8 TH/MM3 (1.0-4.8) Monocytes # (Auto) 1.2 TH/MM3 (0-0.9) Eosinophils # (Auto) 0.1 TH/MM3 (0-0.4) Basophils # (Auto) 0.0 TH/MM3 (0-0.2) CBC Comment DIFF FINAL Differential Comment Blood Urea Nitrogen 21 MG/DL (7-18) Creatinine 0.60 MG/DL (0.60-1.30) Random Glucose 226 MG/DL (74-106) Total Protein 6.9 GM/DL (6.4-8.2) Albumin 2.1 GM/DL (3.4-5.0) Calcium Level 8.2 MG/DL (8.5-10.1) Alkaline Phosphatase 83 U/L (45-117) Aspartate Amino Transf (AST/SGOT) 17 U/L (15-37) Alanine Aminotransferase (ALT/SGPT) 8 U/L (12-78) Total Bilirubin 0.4 MG/DL (0.2-1.0) Sodium Level 136 MEQ/L (136-145) Potassium Level 3.8 MEQ/L (3.5-5.1) Chloride Level 102 MEQ/L (98-107) Carbon Dioxide Level 23.8 MEQ/L (21.0-32.0) Anion Gap 10 MEQ/L (5-15) Estimat Glomerular Filtration Rate 127 ML/MIN (>89) Nasal Screen MRSA (PCR) MRSA DETECTED (NOT DETECT) Vancomycin Level Trough 11.3 MCG/ML (5.0-10.0) Test 10/15/17 06:55 White Blood Count 14.7 TH/MM3 (4.0-11.0) Red Blood Count 4.66 MIL/MM3 (4.50-5.90) Hemoglobin 13.4 GM/DL (13.0-17.0) Hematocrit 42.3 % (39.0-51.0) Mean Corpuscular Volume 90.9 FL (80.0-100.0) Mean Corpuscular Hemoglobin 28.7 PG (27.0-34.0) Mean Corpuscular Hemoglobin Concent 31.6 % (32.0-36.0) Red Cell Distribution Width 18.8 % (11.6-17.2) Platelet Count 410 TH/MM3 (150-450) Mean Platelet Volume 7.9 FL (7.0-11.0) Neutrophils (%) (Auto) 76.0 % (16.0-70.0) Lymphocytes (%) (Auto) 15.3 % (9.0-44.0) Monocytes (%) (Auto) 5.4 % (0.0-8.0) Eosinophils (%) (Auto) 2.9 % (0.0-4.0) Basophils (%) (Auto) 0.4 % (0.0-2.0) Neutrophils # (Auto) 11.2 TH/MM3 (1.8-7.7) Lymphocytes # (Auto) 2.2 TH/MM3 (1.0-4.8) Monocytes # (Auto) 0.8 TH/MM3 (0-0.9) Eosinophils # (Auto) 0.4 TH/MM3 (0-0.4) Basophils # (Auto) 0.1 TH/MM3 (0-0.2) CBC Comment DIFF FINAL Differential Comment Blood Urea Nitrogen 12 MG/DL (7-18) Creatinine 0.46 MG/DL (0.60-1.30) Random Glucose 121 MG/DL (74-106) Calcium Level 8.2 MG/DL (8.5-10.1) Sodium Level 138 MEQ/L (136-145) Potassium Level 3.8 MEQ/L (3.5-5.1) Chloride Level 103 MEQ/L (98-107) Carbon Dioxide Level 24.5 MEQ/L (21.0-32.0) Anion Gap 11 MEQ/L (5-15) Estimat Glomerular Filtration Rate 172 ML/MIN (>89) . Result Diagram: 10/15/17 0655 10/15/17 0655 Microbiology Microbiology Date/Time Source Procedure Growth Status 12/3/17 16:50 Blood Peripheral Aerobic Blood Culture - Preliminary S. Aureus Mrsa Resulted 10/12/17 16:50 Blood Peripheral Anaerobic Blood Culture - Preliminary NO GROWTH IN 3 DAYS Resulted 10/12/17 16:35 Blood Peripheral Aerobic Blood Culture - Preliminary NO GROWTH IN 3 DAYS Resulted 10/12/17 16:35 Blood Peripheral Anaerobic Blood Culture - Preliminary NO GROWTH IN 3 DAYS Resulted . Imaging Last [address] 10/14/17 0000 Signed Impressions: Service Date/Time: Saturday, October 14, 2017 05:16 - CONCLUSION: Stable noncontrast head CT. Emanuel Gandara MD . Assessment and Plan Disease Oriented Problem List: (1) Dementia (2) Hypothyroidism (3) Sepsis (4) UTI (urinary tract infection) (5) Hypertension (6) Diabetes mellitus Symptom Scale: (1) Decrease in appetite (2) Debility (3) Confusion Pertinent Non-Medical Issues Psychosocial:Patient is originally from [place]. He lived in [place], [place] for many years. 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 His in 2004. The patient has 5 adult children. Two daughters live in [place]; Two sons live in [place] and one son who lives in [place] and is estranged from the family. The patient's daughter states "being cognitively sharp" is probably the most important thing to her father. Spiritual: Orthodox pam Legal: HCS and Living will completed on 05/23/2015. Franciscatesha Veliz is the designated [facility] decision-maker. Francisca Monet has been designated as the alternate [facility] decision-maker. The patient completed a standard living will on stating he wishes that life prolonging procedures be withheld or withdrawn in the event that 2 physicians determine there is no reasonable medical probability of recovery from a terminal condition, an end-stage condition or if he is in a permanent vegetative state. At that time, he wishes to be allowed to peacefully and naturally with only the administration of medication or performance of procedures deemed necessary to provide him comfort. Ethical issues impacting care: No known ethical issues impacting care at this time. . Important Contacts Lola Veliz, daughter: [phone] . Prognosis Mr. Courtney is an 89 year old man with a complex medical history who as significantly declined in the past 6 moths. He has had multiple hospitalizations for recurrent UTIs, sepsis, pneumonia, C. difficile and bladder outlet obstruction from BPH requiring a suprapubic catheter. The patient has become progressively more weak, lethargic and confused. He has had a reported weight loss of 50 pounds in the past year and is now too weak to ambulate. Given this patient's advanced age, significant loss in functional status and recurrent infections, his over all prognosis is poor and he is hospice appropriate should his medical treatment goals become comfort focused. . Code Status: No Code Plan * NO CODE- DNR/DNI * Decision-making: Patient currently does not have insight or judgment related to his clinical conditions; it is unclear if the patient will regain capacity. Francisca Veliz is the designated [facility] decision-maker. Francisca Monet has been designated as the alternate [facility] decision-maker. * Community DNR emailed to patient's daughter for signature. * The patient completed a standard living will on 05/23/15 stating he wishes that life prolonging procedures be withheld or withdrawn in the event that 2 physicians determine there is no reasonable medical probability of recovery from a terminal condition, an end-stage condition or if he is in a permanent vegetative state. At that time, he wishes to be allowed to peacefully and naturally with only the administration of medication or performance of procedures deemed necessary to provide him comfort. * GOAL: Family wishes to completed recommended IV antibiotic course before considering hospice. If the patient requires long-term antibiotics via PICC, he will likely need to be placed in a SNF before hospice is considered. * Discussed patient with Dr. Jones * History of recurrent UTI infections and C. difficile. Urine and blood cultures + MRSA. Infectious disease consulted. Will continue vancomycin. Follow repeat cultures. Echocardiogram and CT abdomen/pelvis pending. * Palliative care contacted patient's daughter, Lola, to provide an update on patient's clinical condition. * Symptom management-decreased appetite: Decreased appetite with associated weight loss reported. Patient's daughter reports a 50 pound weight loss in the past 12 months. BMI: 23.6; albumin 2.1 * Symptom management-confusion: Patient has some degree of dementia at baseline and is on Aricept at home. His confusion is likely exacerbated secondary to current clinical condition, sepsis, hospitalization in the ICU and underlying dementia. Will continue to monitor patient closely to ensure safety and reorient patient as appropriate. * Symptom management-debility: Patient has become progressively more weak in recent months. He is no longer able to ambulate per his daughter's report. Occupational and physical therapy has been consulted but are currently being held status post change in status and transfer to intensive care unit. * Palliative care will continue to follow this patient throughout his hospitalization to establish trust, assist with symptom management and clarification of medical treatment goals. . Attestation To help prompt me to consider important information that might be impacting today's encounter and assessment, information from prior notes written by myself or my colleagues may have been "brought forward" into today's note. My signature on this note, however, is an attestation that I personally performed the exam, history, and/or decision-making noted today, and, unless otherwise indicated, the interactions with patient, family, and staff as well as the review of records all occurred today. I also attest that the listed assessment and stated plan reflect my best clinical judgment today based on the combination of historical information, prior notes, and today's exam/ interactions. When time spent is documented, it refers only to time spent today by the signer, or if indicated, combined time spent today by collaborating physician/nurse practitioner. . Nati Concepcion Oct 15, 2017 16:14
[2017-10-15] MEDS: DONEPEZIL HCL 5 MG TAB PO SCH (21:40)
[2017-10-15] MEDS ORDERED: PHARMACY ORDERED LAB ONE (23:45)
[2017-10-16] VITALS (12 sets, daily range): BP systolic 128–152; BP diastolic 72–81; PULSE 80–107; RESP 16–24; TEMP 96.7–98.1; O2SAT 91–96
[2017-10-16] MEDS: DILTIAZEM HCL 60 MG TAB PO SCH ×4 (00:05→18:20)
[2017-10-16] MEDS: SODIUM CHLOR 0.9% 1000 ML INJ 1,000 ML IV SCH ×2 (01:40→19:50)
[2017-10-16] MEDS ORDERED: DIATRIZOATE MEGLUM/DIATRIZOATE SOD 9 ML CUP PO ONE (04:23)
[2017-10-16] MEDS: LEVOTHYROXINE SODIUM 100 MCG TAB PO SCH (05:24)
[2017-10-16] MEDS: INSULIN ASPART SUPPLEMENTAL SCALE SQ SCH ×4 (08:00→21:00)
[2017-10-16] MEDS: LACTOBACILLUS ACIDOPHILUS TAB PO SCH ×2 (09:00→21:00)
[2017-10-16] MEDS: SODIUM CHLORIDE 0.9% FLUSH 10 ML FLUSH IV FLUSH SCH ×2 (09:00→21:00)
[2017-10-16] MEDS: HYDROCORTISONE 10 MG TAB PO SCH (09:00)
[2017-10-16] MEDS: ASPIRIN 81 MG CHEW TAB CHEW SCH ×2 (09:06→21:00)
[2017-10-16] MEDS: METOPROLOL SUCCINATE 50 MG EXTENDED RELEASE TAB PO SCH (09:07)
[2017-10-16] MEDS: POTASSIUM CHLORIDE 20 MEQ CONTROLLED RELEASE TAB PO SCH (09:07)
[2017-10-16] MEDS: ESCITALOPRAM OXALATE 10 MG TAB PO SCH (09:07)
[2017-10-16] MEDS: glyBURIDE 5 MG TAB PO SCH (09:07)
[2017-10-16] MEDS: TAMSULOSIN HCL 0.4 MG CAP PO SCH (09:07)
--- NOTE | 2017-10-16 12:02 | HHI.HCPN ---
Reason for visit a. To assist with evaluation and management of symptoms including: Decreased appetite, confusion, debility b. To assist medical decision maker(s) with: better understanding of current medical conditions; weighing benefits/burdens of medical treatment options; making medical treatment decisions. . Subjective/Interval History Follow up visit for symptom management and clarification of goals. Mr. Courtney was was moved to CICU yesterday; seen and assessed in room 243. Patient appears to be sleeping, easily arouses to verbal stimuli. He is somnolent but is able to respond to some simple questions appropriately. Intermittently confused but more alert than yesterday.. Encephalopathy is likely multifactorial; contributing factors include recent hospitalization, sepsis and underlying dementia. CT head on 10/14/2017 was stable. Remains afebrile. + Suprapubic catheter which was exchanged in the ED on 2016. Urine culture with MRSA. Bacteremia with MRSA. Infectious disease was consulted for recommendations. Will continue IV vancomycin and follow repeat cultures. CT abdomen/pelvis and echocardiogram is pending. Patient is significantly deconditioned as evidenced by increasing weakness, inability to ambulate or complete ADLs independently. Wound care following for recommendations on left lateral ankle wound and wound on sacrum. Patient was living at home alone with hired caregivers intermittently throughout the day, but there is now concern this is no longer a safe option for the patient who likely needs 24/7 care. Family would like to optimize this hospitalization, considering discharge to hospice. Community DNR was completed and placed in the patient's chart. . Advance Directives Living Will: Copy in medical record Health Care Surrogate: Copy in medical record Advance Directive Specifics Date completed: 05/23/2015 . Health Care Surrogate(s): Francisca Veliz is the designated [facility] decision-maker. Francisca Monet has been designated as the alternate [facility] decision-maker. . Documented care wishes: The patient completed a standard living will on 05/23/15 stating he wishes that life prolonging procedures be withheld or withdrawn in the event that 2 physicians determine there is no reasonable medical probability of recovery from a terminal condition, an end-stage condition or if he is in a permanent vegetative state. At that time, he wishes to be allowed to peacefully and naturally with only the administration of medication or performance of procedures deemed necessary to provide him comfort. . Objective Vital Signs Date Time Temp Pulse Resp B/P (MAP) Pulse Ox O2 Delivery O2 Flow Rate FiO2 10/16/17 10:49 Nasal Cannula 4.00 10/16/17 10:49 95 10/16/17 09:07 94 Nasal Cannula 4.00 10/16/17 08:46 97.0 89 18 147/77 (100) 91 10/16/17 06:07 87 10/16/17 04:01 95 10/16/17 04:01 97.6 94 18 128/73 (91) 95 10/16/17 02:12 107 10/16/17 00:00 94 10/16/17 00:00 97.9 95 18 152/81 (104) 92 10/15/17 22:26 Nasal Cannula 4.00 10/15/17 22:01 92 10/15/17 20:01 102 10/15/17 20:01 98.1 102 18 146/78 (100) 92 10/15/17 19:01 92 Nasal Cannula 4.00 10/15/17 16:30 80 10/15/17 16:30 98.6 87 18 156/78 (104) 92 10/15/17 16:30 4.00 92 10/15/17 16:00 79 10/15/17 14:00 97 10/15/17 12:00 78 10/15/17 12:00 98.0 78 25 154/73 (100) 96 Intake & Output 10/16/17 10/16/17 07:00 19:00 Intake Total 240 ml Output Total 1500 ml Balance -1260 ml Intake Oral 240 ml Output Urine Total 1500 ml # Bowel Movements 1 . Physical Exam CONSTITUTIONAL/GENERAL: This is a frail, elderly male patient in no acute distress. TUBES/LINES/DRAINS: Suprapubic catheter, PIV x 2, nasal cannula SKIN: Wounds on left lateral ankle and sacrum. Skin temperature appropriate. Not diaphoretic. Ecchymosis on upper extremities bilaterally. HEAD: Atraumatic. Normocephalic. EYES: Pupils equal and round and reactive. No scleral icterus. No injection or drainage. Fundi not examined. ENT: Hearing grossly normal. Nose without bleeding or purulent drainage. NECK: Trachea midline. CARDIOVASCULAR: Regularly irregular. No Murmurs, gallops, or rubs. No JVD. Peripheral pulses symmetric. RESPIRATORY/CHEST: Symmetric, unlabored respirations. Clear to auscultation. Breath sounds diminished bilaterally. No wheezes, rales, or rhonchi. GASTROINTESTINAL: Abdomen soft, non-tender, nondistended. No guarding. Bowel sounds present. GENITOURINARY: Without palpable bladder distension. Suprapubic catheter in place ending clear,pale yellow urine MUSCULOSKELETAL: Extremities without clubbing, cyanosis, or edema. No mottling or clubbing. LYMPHATICS: No palpable cervical or supraclavicular adenopathy. NEUROLOGICAL: Pleasantly confused, non-sensical speech at times. Easily redirected. PSYCHIATRIC: No obvious anxiety/depression. Intermittent hallucinations reported . Diagnostic Tests Laboratory Laboratory Tests Test 10/14/17 02:49 10/15/17 06:55 10/16/17 01:00 Vancomycin Level Trough 11.3 MCG/ML (5.0-10.0) 14.2 MCG/ML (5.0-10.0) White Blood Count 14.7 TH/MM3 (4.0-11.0) Red Blood Count 4.66 MIL/MM3 (4.50-5.90) Hemoglobin 13.4 GM/DL (13.0-17.0) Hematocrit 42.3 % (39.0-51.0) Mean Corpuscular Volume 90.9 FL (80.0-100.0) Mean Corpuscular Hemoglobin 28.7 PG (27.0-34.0) Mean Corpuscular Hemoglobin Concent 31.6 % (32.0-36.0) Red Cell Distribution Width 18.8 % (11.6-17.2) Platelet Count 410 TH/MM3 (150-450) Mean Platelet Volume 7.9 FL (7.0-11.0) Neutrophils (%) (Auto) 76.0 % (16.0-70.0) Lymphocytes (%) (Auto) 15.3 % (9.0-44.0) Monocytes (%) (Auto) 5.4 % (0.0-8.0) Eosinophils (%) (Auto) 2.9 % (0.0-4.0) Basophils (%) (Auto) 0.4 % (0.0-2.0) Neutrophils # (Auto) 11.2 TH/MM3 (1.8-7.7) Lymphocytes # (Auto) 2.2 TH/MM3 (1.0-4.8) Monocytes # (Auto) 0.8 TH/MM3 (0-0.9) Eosinophils # (Auto) 0.4 TH/MM3 (0-0.4) Basophils # (Auto) 0.1 TH/MM3 (0-0.2) CBC Comment DIFF FINAL Differential Comment Blood Urea Nitrogen 12 MG/DL (7-18) Creatinine 0.46 MG/DL (0.60-1.30) Random Glucose 121 MG/DL (74-106) Calcium Level 8.2 MG/DL (8.5-10.1) Sodium Level 138 MEQ/L (136-145) Potassium Level 3.8 MEQ/L (3.5-5.1) Chloride Level 103 MEQ/L (98-107) Carbon Dioxide Level 24.5 MEQ/L (21.0-32.0) Anion Gap 11 MEQ/L (5-15) Estimat Glomerular Filtration Rate 172 ML/MIN (>89) Result Diagram: 10/15/17 0655 10/15/17 0655 Microbiology Microbiology Date/Time Source Procedure Growth Status 10/16/17 05:30 Blood Peripheral Aerobic Blood Culture Pending Received 10/16/17 05:30 Blood Peripheral Anaerobic Blood Culture Pending Received 10/16/17 05:20 Blood Peripheral Aerobic Blood Culture Pending Received 10/16/17 05:20 Blood Peripheral Anaerobic Blood Culture Pending Received Imaging Last [address] 10/14/17 0000 Signed Impressions: Service Date/Time: Saturday, October 14, 2017 05:16 - CONCLUSION: Stable noncontrast head CT. Emanuel Gandara MD . Assessment and Plan Disease Oriented Problem List: (1) Dementia (2) Hypothyroidism (3) Sepsis (4) UTI (urinary tract infection) (5) Hypertension (6) Diabetes mellitus Symptom Scale: (1) Decrease in appetite (2) Debility (3) Confusion Pertinent Non-Medical Issues Psychosocial:Patient is originally from [place]. He lived in [place], [place] for many years. 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 His in 2004. The patient has 5 adult children. Two daughters live in [place]; Two sons live in [place] and one son who lives in [place] and is estranged from the family. The patient's daughter states "being cognitively sharp" is probably the most important thing to her father. Spiritual: Pentecostalism apm Legal: HCS and Living will completed on 05/23/2015. Francisca Veliz is the designated [facility] decision-maker. Francisca Monet has been designated as the alternate [facility] decision-maker. The patient completed a standard living will on stating he wishes that life prolonging procedures be withheld or withdrawn in the event that 2 physicians determine there is no reasonable medical probability of recovery from a terminal condition, an end-stage condition or if he is in a permanent vegetative state. At that time, he wishes to be allowed to peacefully and naturally with only the administration of medication or performance of procedures deemed necessary to provide him comfort. Ethical issues impacting care: No known ethical issues impacting care at this time. . Important Contacts Lola Veliz, daughter: [phone] . Prognosis Mr. Courtney is an 89 year old man with a complex medical history who as significantly declined in the past 6 moths. He has had multiple hospitalizations for recurrent UTIs, sepsis, pneumonia, C. difficile and bladder outlet obstruction from BPH requiring a suprapubic catheter. The patient has become progressively more weak, lethargic and confused. He has had a reported weight loss of 50 pounds in the past year and is now too weak to ambulate. Given this patient's advanced age, significant loss in functional status and recurrent infections, his over all prognosis is poor and he is hospice appropriate should his medical treatment goals become comfort focused. . Code Status: No Code Plan * NO CODE- DNR/DNI * Community DNR completed and placed in chart. * Decision-making: Patient currently does not have insight or judgment related to his clinical conditions; it is unclear if the patient will regain capacity. Francisca Veliz is the designated [facility] decision-maker. Francisca Monet has been designated as the alternate [facility] decision-maker. * Community DNR emailed to patient's daughter for signature. * The patient completed a standard living will on 05/23/15 stating he wishes that life prolonging procedures be withheld or withdrawn in the event that 2 physicians determine there is no reasonable medical probability of recovery from a terminal condition, an end-stage condition or if he is in a permanent vegetative state. At that time, he wishes to be allowed to peacefully and naturally with only the administration of medication or performance of procedures deemed necessary to provide him comfort. * GOAL: Family wishes to completed recommended IV antibiotic course before considering hospice. If goals remain aggressive at discharge, patient will need placement at a SNF for rehabilitation. * History of recurrent UTI infections and C. difficile. Urine and blood cultures + MRSA. Infectious disease consulted. Will continue vancomycin. Follow repeat cultures. Echocardiogram and CT abdomen/pelvis pending.. * Symptom management-decreased appetite: Decreased appetite with associated weight loss reported. Patient's daughter reports a 50 pound weight loss in the past 12 months. BMI: 23.6; albumin 2.1 * Symptom management-confusion: Patient has some degree of dementia at baseline and is on Aricept at home. His confusion is likely exacerbated secondary to current clinical condition, sepsis, hospitalization in the ICU and underlying dementia. Will continue to monitor patient closely to ensure safety and reorient patient as appropriate. * Symptom management-debility: Patient has become progressively more weak in recent months. He is no longer able to ambulate per his daughter's report. Occupational and physical therapy has been consulted but are currently being held status post change in status and transfer to intensive care unit. * Palliative care will continue to follow this patient throughout his hospitalization to establish trust, assist with symptom management and clarification of medical treatment goals. . Attestation To help prompt me to consider important information that might be impacting today's encounter and assessment, information from prior notes written by myself or my colleagues may have been "brought forward" into today's note. My signature on this note, however, is an attestation that I personally performed the exam, history, and/or decision-making noted today, and, unless otherwise indicated, the interactions with patient, family, and staff as well as the review of records all occurred today. I also attest that the listed assessment and stated plan reflect my best clinical judgment today based on the combination of historical information, prior notes, and today's exam/ interactions. When time spent is documented, it refers only to time spent today by the signer, or if indicated, combined time spent today by collaborating physician/nurse practitioner. . Nati Concepcion Oct 16, 2017 12:02
[2017-10-16] MEDS: VANCOMYCIN 1,000 MG/NS 250 ML IV SCH ×4 (12:04)
--- NOTE | 2017-10-16 13:00 | RADRPT ---
EXAM DATE/TIME: 10/16/2017 12:25 [facility] COMPARISON: CT ABDOMEN & PELVIS W/O CONTRAST, August 21, 2017, 8:18. INDICATIONS : Evaluate for hydronephrosis ORAL CONTRAST: Prescribed oral contrast ingested. RADIATION DOSE: 7.06 CTDIvol (mGy) MEDICAL HISTORY : Hypertension. Ulcers. Hernia, hiatal.Diabetes,cardiac SURGICAL HISTORY : None. ENCOUNTER: Initial ACUITY: 1 day PAIN SCALE: 0/10 LOCATION: Abdomen TECHNIQUE: Volumetric scanning of the abdomen and pelvis was performed. Using automated exposure control and ad justment of the mA and/or kV according to patient size, radiation dose was kept as low as reasonably achievable to obtain optimal diagnostic quality images. DICOM format image data is available electro nically for review and comparison. FINDINGS: LOWER LUNGS: Hydropneumothorax on the left. Bibasilar consolidation and pleural effusions. LIVER: Homogeneous density without lesion. There is no dilation of the biliary tree. Multiple calcified gal lstones. SPLEEN: Normal size without lesion. PANCREAS: Within normal limits. KIDNEYS: Normal in size and shape. There is no mass, stone, or hydronephrosis. Partially calcified cystic les ion upper pole left kidney is stable. Other low densities/hypodensities are seen in left kidney. ADRENAL GLANDS: Within normal limits. VASCULAR: Aneurysm distal abdominal aorta measuring 3.8 x 3.2 cm.. BOWEL/MESENTERY: Diverticulosis of the colon. Copious amount of stool. There is no free intraperitoneal air or fluid. ABDOMINAL WALL: Large ventral wall hernia containing small and large bowel loops. RETROPERITONEUM: There is no lymphadenopathy. BLADDER: Suprapubic catheter. Hyperdense material within decompressed urinary bladder. REPRODUCTIVE: Massive enlargement of the prostate gland. INGUINAL: There is no lymphadenopathy or hernia. MUSCULOSKELETAL: Within normal limits for patient age. CONCLUSION: 1. Large pneumothorax on the left. Chest tube likely needed. 2. Bibasilar consolidation and pleural effusions. 3. Cholelithiasis. 4. Right-sided hydronephrosis and hydroureter. Left-sided hydronephrosis has resolved. 5. Distal abdominal aortic aneurysm measuring 3.8 x 3.2 cm. 6. Large hernia abdominal wall containing multiple bowel loops. No signs of obstruction or strangulat ion 7. Massive enlargement of the prostate gland. 8. Hyperdense material within decompressed urinary bladder, can be thrombus. Kris F. Tocci, MD on October 16, 2017 at 12:47 Board Certified Radiologist. This report was verified electronically.
--- NOTE | 2017-10-16 13:32 | HHI.PR ---
Subjective Remarks with some sob and on oxygen via N/C. Objective Vitals Vital Signs Date Time Temp Pulse Resp B/P (MAP) Pulse Ox O2 Delivery O2 Flow Rate FiO2 10/16/17 10:49 Nasal Cannula 4.00 10/16/17 10:49 95 10/16/17 09:07 94 Nasal Cannula 4.00 10/16/17 08:46 97.0 89 18 147/77 (100) 91 10/16/17 06:07 87 10/16/17 04:01 95 10/16/17 04:01 97.6 94 18 128/73 (91) 95 10/16/17 02:12 107 10/16/17 00:00 94 10/16/17 00:00 97.9 95 18 152/81 (104) 92 10/15/17 22:26 Nasal Cannula 4.00 10/15/17 22:01 92 10/15/17 20:01 102 10/15/17 20:01 98.1 102 18 146/78 (100) 92 10/15/17 19:01 92 Nasal Cannula 4.00 10/15/17 16:30 80 10/15/17 16:30 98.6 87 18 156/78 (104) 92 10/15/17 16:30 4.00 92 10/15/17 16:00 79 10/15/17 14:00 97 I/O 10/15/17 10/15/17 10/15/17 10/16/17 10/16/17 10/16/17 07:00 15:00 23:00 07:00 15:00 23:00 Intake Total 540 ml 245 ml 240 ml Output Total 1000 ml 1500 ml Balance -460 ml 245 ml -1260 ml Intake Oral 240 ml 240 ml IV Total 300 ml 245 ml Output Urine Total 1000 ml 1500 ml # Bowel Movements 1 1 Result Diagram: 10/15/17 0655 10/15/17 0655 Imaging Last Impressions Abdomen/Pelvis CT 10/15/17 0000 Signed Impressions: Service Date/Time: October 12:25 - CONCLUSION: 1. Large pneumothorax on the left. Chest tube likely needed. 2. Bibasilar consolidation and pleural effusions. 3. Cholelithiasis. 4. Right-sided hydronephrosis and hydroureter. Left-sided hydronephrosis has resolved. 5. Distal abdominal aortic aneurysm measuring 3.8 x 3.2 cm. 6. Large hernia abdominal wall containing multiple bowel loops. No signs of obstruction or strangulation 7. Massive enlargement of the prostate gland. 8. Hyperdense material within decompressed urinary bladder, can be thrombus. Kris Levin MD Head CT 10/14/17 0000 Signed Impressions: Service Date/Time: Saturday, October 14, 2017 05:16 - CONCLUSION: Stable noncontrast head CT. Emanuel Gandara MD Objective Remarks GENERAL: elderly male, in no apparent distress. CARDIOVASCULAR: tachycardic with irregular rhythm without murmurs, gallops, or rubs. RESPIRATORY: Clear to auscultation. Breath sounds equal bilaterally. No wheezes , rales, or rhonchi. GASTROINTESTINAL: Abdomen soft, non-tender, nondistended. Normal, active bowel sounds MUSCULOSKELETAL: Extremities without clubbing, cyanosis, or edema. NEURO: awake and alert. Medications and IVs Current Medications Sodium Chloride 1,000 ml @ 2,000 mls/hr Q30M ONCE IV Last administered on 10/12 10:45; Start 10/12/17 at 10:00; Stop 10/12/17 at 10:29; Status DC Vancomycin HCl 1500 mg/Sodium Chloride 515 ml @ 257.5 mls/ hr ONCE ONCE IV Last administered on 10/12/17 13:50; Start 10/12/17 at 11:30; Stop 10/12/17 at 13:29; Status DC Gentamicin Sulfate 80 mg/ Sodium Chloride 102 ml @ 100 mls/hr ONCE ONCE IV Last administered on 10/12/17 12:08; Start 10/12/17 at 11:30; Stop 10/12/17 at 12:31; Status DC Dextrose (D50w (Vial) Inj) 50 ml UNSCH PRN IV PUSH HYPOGLYCEMIA-SEE COMMENTS; Start 10/12/17 at 12:00 Glucagon (Glucagon Inj) 1 mg UNSCH PRN OTHER HYPOGLYCEMIA-SEE COMMENTS; Start 10/12/17 at 12:00 Insulin Aspart (NovoLOG SUPPLEMENTAL SCALE) 1 ACHS SLIDING SCALE SQ Last administered on 10/16/17 12:05; Start 10/12/17 at 12:00 Sodium Chloride 1,000 ml @ 70 mls/hr [id number] IV Last administered on 10:43; Start 10/12/17 at 11:52 Sodium Chloride (NS Flush) 2 ml UNSCH PRN IV FLUSH FLUSH AFTER USING IV ACCESS ; Start 10/12/17 at 12:00 Sodium Chloride (NS Flush) 2 ml BID IV FLUSH Last administered on 10/15/17 21: 41; Start 10/12/17 at 21:00 Acetaminophen (Tylenol) 650 mg Q4H PRN PO TEMP > 100.4; Start 10/12/17 at 12:00 Ondansetron HCl (Zofran Inj) 4 mg Q6H PRN IVP NAUSEA OR VOMITING; Start at 12:00 Acetaminophen (Tylenol) 650 mg Q6H PRN PO PAIN SCALE 1 TO 2; Start 10/12/17 at 12:00 Naloxone HCl (Narcan Inj) 0.4 mg UNSCH PRN IV PUSH SEE LABEL COMMENTS; Start 10/12/17 at 12:00 Magnesium Hydroxide (Milk Of Magnviviana Liq) 30 ml Q12H PRN PO Mild constipation ; Start 10/12/17 at 12:00 Lactobacillus Acidophilus (Lactinex) 1 tab Q12HR PO Last administered on 09:00; Start 10/12/17 at 21:00 Pharmacy Profile Note 0 ml @ 0 mls/hr UNSCH PRN OTHER ADJUST FOR CREATININE CLRNCE; Start 10/12/17 at 12:00 Vancomycin HCl 1250 mg/Sodium Chloride 262.5 ml @ 262.5 mls/ hr Q12H IV ; Start 10/13/17 at 09:00; Status Cancel Piperacillin Sod/ Tazobactam Sod 50 ml @ 100 mls/hr Q8H IV Last administered on 10/15/17 03:59; Start 10/12/17 at 20:00; Stop 10/15/17 at 10:52; Status DC Vancomycin HCl 1000 mg/Sodium Chloride 250 ml @ 250 mls/hr Q12H IV Last administered on 10/16/17 12:04; Start 10/13/17 at 00:00 Miscellaneous Information SPECIFIC LAB TO BE PAPITO... ONCE ONCE .XX Last administered on 10/14/17 03:00; Start 10/13/17 at 23:45; Stop 10/13/17 at 23:46 ; Status DC Aspirin (Aspirin Chew) 81 mg BID CHEW Last administered on 10/16/17 09:06; Start 10/12/17 at 21:00 Donepezil HCl (Aricept) 5 mg HS PO Last administered on 10/15/17 21:40; Start 10/12/17 at 21:00 Escitalopram Oxalate (Lexapro) 5 mg DAILY PO Last administered on 10/16/17 09: 07; Start 10/13/17 at 09:00 Glyburide (Diabeta) 5 mg DAILY@0800 PO Last administered on 10/16/17 09:07; Start 10/13/17 at 08:00 Hydrocortisone (Cortef) 2.5 mg DAILY PO Last administered on 10/16/17 09:00; Start 10/13/17 at 09:00 Levothyroxine Sodium (Synthroid) 100 mcg DAILY@0600 PO Last administered on 05:24; Start 10/13/17 at 06:00 Lisinopril (Prinivil) 10 mg DAILY PO Last administered on 10/13/17 08:43; Start 10/13/17 at 09:00; Status Future Hold Metoprolol Succinate (Toprol Xl) 50 mg DAILY PO Last administered on 10/16/17 09:07; Start 10/13/17 at 09:00 Potassium Chloride (KCl) 20 meq DAILY PO Last administered on 10/16/17 09:07; Start 10/13/17 at 09:00 Silver Sulfadiazine (Silvadene 1% Cream (50 Gm)) 1 applic DAILY PRN TOPICAL APPLY TO AFFECTED AREA S/P; Start 10/12/17 at 14:30 Tamsulosin HCl (Flomax) 0.4 mg DAILY PO Last administered on 10/16/17 09:07; Start 10/13/17 at 09:00 Non-Formulary Medication 50 mg TID PO ; Start 10/12/17 at 18:00; Status UNV Miscellaneous (Pill Splitter) 1 ea UNSCH PRN OTHER SEE LABEL COMMENTS; Start 10/12/17 at 14:45 Enalaprilat (Vasotec Inj) 2.5 mg Q6H PRN IV PUSH SBP>160, DBP>90 Last administered on 10/13/17 06:34; Start 10/12/17 at 15:00 Clonidine (Catapres) 0.1 mg Q6H PRN PO SBP>160, DBP>90 Last administered on 17:00; Start 10/12/17 at 15:00 Influenza Virus Vaccine (Flu (Quadrivalent) Vaccine Inj) 0.5 ml ONCE ONCE IM Last administered on 10/13/17 08:42; Start 10/13/17 at 10:00; Stop 10/13/17 at 10:01; Status DC Metoprolol Tartrate (Lopressor) 12.5 mg ONCE ONCE PO Last administered on 10/12 20:36; Start 10/12/17 at 20:30; Stop 10/12/17 at 20:31; Status DC Diltiazem HCl (Cardizem Inj) 15 mg ONCE ONCE IV PUSH Last administered on 10/13 04:48; Start 10/13/17 at 04:15; Stop 10/13/17 at 04:16; Status DC Diltiazem HCl 125 mg/Sodium Chloride 125 ml @ 5 mls/hr TITRATE PRN IV Tachycardia Last administered on 10/13/17 14:07; Start 10/13/17 at 04:15 Diltiazem HCl (Cardizem) 30 mg Q6HR PO Last administered on 10/14/17 00:15; Start 10/13/17 at 13:00; Stop 10/14/17 at 10:55; Status DC Miscellaneous Information SPECIFIC LAB TO BE DRAWN:VANCOMYCIN TROUGH DATE TO... ONCE ONCE .XX ; Start 10/15/17 at 23:45; Stop 10/15/17 at 23:46; Status DC Diltiazem HCl (Cardizem) 60 mg Q6HR PO Last administered on 10/16/17 12:04; Start 10/14/17 at 12:00 Diatrizoate Meglum/ Diatrizoate Sod ( Gastroview Liq) 18 ml ONCE ONCE PO Last administered on 10/16/17 06:15; Start 10/16/17 at 04:23; Stop 10/16/17 at 05:20; Status DC A/P Problem List: (1) Sepsis ICD Code: A41.9 - Sepsis, unspecified organism Status: Resolved (2) UTI (urinary tract infection) ICD Code: N39.0 - Urinary tract infection, site not specified Status: Acute (3) Suprapubic catheter dysfunction ICD Code: T83.010A - Breakdown (mechanical) of cystostomy catheter, initial encounter (4) Hypertension ICD Code: I10 - Essential (primary) hypertension Status: Chronic (5) Diabetes mellitus ICD Code: E11.9 - Type 2 diabetes mellitus without complications Status: Chronic Assessment and Plan A/P Sepsis with Complicated UTI Failed Outpatient Treatment. +Suprapubic catheter. -Suprapubic catheter exchanged in the ED 10/12 -UC with MRSA -continue IV Vancomycin - continue on IVF hydration at 70cc/hr Bacteremia with MRSA- continue IV Vanco- will repeat the blood cultures- check echo -ID consult appreciated. pneumothorax- noted on the CT- will do stat CXR today- keep on oxygen to keep O2 sat > 90%.- consulted pulmonary. Fatigue/Weakness/Inability to Ambulate/Difficulty with ADLs: suspect multifactorial secondary to recent infections, hospitalizations, and advanced age. Patient lives alone. -consulted PT/OT- A-fib with RVR- HR better controlled. - will continue metoprolol and po cardizem continue to monitor. Diabetes Mellitus with Hyperglycemia: blood glucose 332 upon arrival. Last HgbA1c 12.1 on 07/25/17. -continue patient's acarbose and glyburide, hold patient's metformin -Monitor Accu-Checks and cover with medium dose Novolog SSI -hypoglycemia protocol -consulted supervisor contact and service clerks and religious educator Hypertension: chronic, BP fairly well controlled -continue metoprolol- hold lisinopril since po cardizem was added. -monitor BP, adjust antihypertensives as needed Dementia: chronic, stable -continue patient's Aricept Hypothyroidism: chronic, stable -continue patient's synthroid buttock wound; wound care evaluation appreciated. DVT Prophylaxis: teds/SCDs DNR status. d/w the POA and was notified on findings. asked for pulmonary evaluation. she said that she would make a decision on the extent of care soon. will consider hospice if POA agrees. Shaniqua Jones MD Oct 16, 2017 13:32
--- NOTE | 2017-10-16 13:38 | HHI.IDPN ---
Subjective Subjective Remarks Patient is an 89-year-old male, who lives at home, brought into the hospital for further evaluation of increasing lethargy, and confusion. Patient lives at home alone, and usually the family arranges for AIRCRAFT ENGINE ASSEMBLER to check up on him or stay with him during the day. He has had problem with multiple UTIs, and apparently his urine was tested and there was some evidence of UTI, and Cipro was called in. Patient however did not start Cipro because he was getting more confused so he was taken to the hospital for further evaluation and treatment. His been noted to be getting some hallucination. There's been no fever or chills or sweats. No noted respiratory problem. He has not had any nausea or vomiting or any diarrhea. Patient also since his been lethargic has not been ambulating as before. Patient has not been febrile. His WBC was elevated. His suprapubic catheter was changed in the emergency room. Apparently gets changed once a month. Patient could not tell me when the last time it was change but during his last hospitalization in August, he underwent cystoscopy, evacuation of hematoma and exchange of his suprapubic catheter done by Dr. Armstrong. 1 out of the 2 blood cultures growing MRSA. His urine culture has MRSA. He has had previous urine culture that had MRSA. Infectious disease consultation has been requested to evaluate the patient. Patient currently remains very confused. Notes reviewed Afebrile Has a new (+) BC CT A/P with R hydronephrosis, improving hydro on L WBC slightly lower Antibiotics Current Medications Vancomycin IV Medications (Trade) Dose Ordered Sig/Shanel Route Start Time Stop Time Status Last Admin (D50w (Vial) Inj) 50 ml UNSCH PRN IV PUSH 10/12/17 12:00 (Glucagon Inj) 1 mg UNSCH PRN OTHER 10/12/17 12:00 (NovoLOG SUPPLEMENTAL SCALE) 1 ACHS SLIDING SCALE SQ 10/12/17 12:00 10/16/17 12:05 Sodium Chloride 1,000 ml @ 70 mls/hr [id number] IV 10/12/17 11:52 10/15/17 10:43 (NS Flush) 2 ml UNSCH PRN IV FLUSH 10/12/17 12:00 (NS Flush) 2 ml BID IV FLUSH 10/12/17 21:00 10/15/17 21:41 (Tylenol) 650 mg Q4H PRN PO 10/12/17 12:00 (Zofran Inj) 4 mg Q6H PRN IVP 10/12/17 12:00 (Tylenol) 650 mg Q6H PRN PO 10/12/17 12:00 (Narcan Inj) 0.4 mg UNSCH PRN IV PUSH 10/12/17 12:00 (Milk Of Magnesia Liq) 30 ml Q12H PRN PO 10/12/17 12:00 (Lactinex) 1 tab Q12HR PO 10/12/17 21:00 10/16/17 09:00 Pharmacy Profile Note 0 ml @ 0 mls/hr UNSCH PRN OTHER 10/12/17 12:00 Vancomycin HCl 1000 mg/Sodium Chloride 250 ml @ 250 mls/hr Q12H IV 10/13/17 00:00 10/16/17 12:04 (Aspirin Chew) 81 mg BID CHEW 10/12/17 21:00 10/16/17 09:06 (Aricept) 5 mg HS PO 10/12/17 21:00 10/15/17 21:40 (Lexapro) 5 mg DAILY PO 10/13/17 09:00 10/16/17 09:07 (Diabeta) 5 mg DAILY@0800 PO 10/13/17 08:00 10/16/17 09:07 (Cortef) 2.5 mg DAILY PO 10/13/17 09:00 10/16/17 09:00 (Synthroid) 100 mcg DAILY@0600 PO 10/13/17 06:00 10/16/17 05:24 (Prinivil) 10 mg DAILY PO 10/13/17 09:00 Future Hold 10/13/17 08:43 (Toprol Xl) 50 mg DAILY PO 10/13/17 09:00 10/16/17 09:07 (KCl) 20 meq DAILY PO 10/13/17 09:00 10/16/17 09:07 (Silvadene 1% Cream (50 Gm)) 1 applic DAILY PRN TOPICAL 10/12/17 14:30 (Flomax) 0.4 mg DAILY PO 10/13/17 09:00 10/16/17 09:07 (Pill Splitter) 1 ea UNSCH PRN OTHER 10/12/17 14:45 (Vasotec Inj) 2.5 mg Q6H PRN IV PUSH 10/12/17 15:00 10/13/17 06:34 (Catapres) 0.1 mg Q6H PRN PO 10/12/17 15:00 10/12/17 17:00 Diltiazem HCl 125 mg/Sodium Chloride 125 ml @ 5 mls/hr TITRATE PRN IV 10/13/17 04:15 10/13/17 14:07 (Cardizem) 60 mg Q6HR PO 10/14/17 12:00 10/16/17 12:04 Lines PIV Past Medical History DM Hypertension Hyperlipidemia BPH obstructive uropathy s/p suprapubic catheter recurrent UTIs Hiatal hernia gastric ulcers hypothyroidism Past Surgical History Cataract extractions Tonsillectomy Cystoscopy with suprapubic catheter placement Gastric perforation repair Allergies: Coded Allergies: adhesive tape (Verified Allergy, Severe, Hives, 10/12/17) hydrocodone (Verified Allergy, Severe, HIVES, 10/12/17) Objective . Vital Signs Date Time Temp Pulse Resp B/P (MAP) Pulse Ox O2 Delivery O2 Flow Rate FiO2 10/16/17 10:49 Nasal Cannula 4.00 10/16/17 10:49 95 10/16/17 09:07 94 Nasal Cannula 4.00 10/16/17 08:46 97.0 89 18 147/77 (100) 91 10/16/17 06:07 87 10/16/17 04:01 95 10/16/17 04:01 97.6 94 18 128/73 (91) 95 10/16/17 02:12 107 10/16/17 00:00 94 10/16/17 00:00 97.9 95 18 152/81 (104) 92 10/15/17 22:26 Nasal Cannula 4.00 10/15/17 22:01 92 10/15/17 20:01 102 10/15/17 20:01 98.1 102 18 146/78 (100) 92 10/15/17 19:01 92 Nasal Cannula 4.00 10/15/17 16:30 80 10/15/17 16:30 98.6 87 18 156/78 (104) 92 10/15/17 16:30 4.00 92 10/15/17 16:00 79 10/15/17 14:00 97 . Laboratory Tests Test 10/15/17 06:55 White Blood Count 14.7 TH/MM3 Red Blood Count 4.66 MIL/MM3 Hemoglobin 13.4 GM/DL Hematocrit 42.3 % Mean Corpuscular Volume 90.9 FL Mean Corpuscular Hemoglobin 28.7 PG Mean Corpuscular Hemoglobin Concent 31.6 % Red Cell Distribution Width 18.8 % Platelet Count 410 TH/MM3 Mean Platelet Volume 7.9 FL Neutrophils (%) (Auto) 76.0 % Lymphocytes (%) (Auto) 15.3 % Monocytes (%) (Auto) 5.4 % Eosinophils (%) (Auto) 2.9 % Basophils (%) (Auto) 0.4 % Neutrophils # (Auto) 11.2 TH/MM3 Lymphocytes # (Auto) 2.2 TH/MM3 Monocytes # (Auto) 0.8 TH/MM3 Eosinophils # (Auto) 0.4 TH/MM3 Basophils # (Auto) 0.1 TH/MM3 CBC Comment DIFF FINAL Differential Comment Laboratory Tests Test 10/15/17 06:55 Blood Urea Nitrogen 12 MG/DL Creatinine 0.46 MG/DL Random Glucose 121 MG/DL Calcium Level 8.2 MG/DL Sodium Level 138 MEQ/L Potassium Level 3.8 MEQ/L Chloride Level 103 MEQ/L Carbon Dioxide Level 24.5 MEQ/L Anion Gap 11 MEQ/L Estimat Glomerular Filtration Rate 172 ML/MIN Microbiology Date/Time Source Procedure Growth Status 10/16/17 05:30 Blood Peripheral Aerobic Blood Culture Pending Received 10/16/17 05:30 Blood Peripheral Anaerobic Blood Culture Pending Received 10/16/17 05:20 Blood Peripheral Aerobic Blood Culture Pending Received 10/16/17 05:20 Blood Peripheral Anaerobic Blood Culture Pending Received Imaging Abdomen/Pelvis CT 10/15/17 0000 Signed Impressions: Service Date/Time: October 12:25 - CONCLUSION: 1. Large pneumothorax on the left. Chest tube likely needed. 2. Bibasilar consolidation and pleural effusions. 3. Cholelithiasis. 4. Right-sided hydronephrosis and hydroureter. Left-sided hydronephrosis has resolved. 5. Distal abdominal aortic aneurysm measuring 3.8 x 3.2 cm. 6. Large hernia abdominal wall containing multiple bowel loops. No signs of obstruction or strangulation 7. Massive enlargement of the prostate gland. 8. Hyperdense material within decompressed urinary bladder, can be thrombus. Kris Levin MD Head CT 10/14/17 0000 Signed Impressions: Service Date/Time: Saturday, October 14, 2017 05:16 - CONCLUSION: Stable noncontrast head CT. Emanuel Gandara MD Physical Exam GENERAL: awakens easily, not in respiratory distress. He is confused SKIN: Warm and dry. No generalized rash, no ecchymoses and no evidence of embolic lesions. HEAD: Atraumatic. Normocephalic. No temporal wasting, or tenderness. EYES: [place] conjunctiva. No petechia or hemorrhage. Pupils equal, round and reactive to light. No scleral icterus. No injection or drainage. EARS, NOSE AND THROAT: Nose without bleeding or purulent nasal discharge. No sinus tenderness. Mucous membranes pink and moist. No oral lesions noted. NECK: Trachea midline. Supple and not tender, no meningeal signs CARDIOVASCULAR: Regular rate and rhythm. No murmurs, rubs or gallops heard RESPIRATORY: Clear to auscultation. Breath sounds equal bilaterally. No rales , wheezing or rhonchi ABDOMEN: Soft, non-tender, nondistended. Bowel sounds present and normoactive. No guarding. No rebound. No organomegaly. SPC site looks ok. He has reducible hernia in mid abdomen EXTREMITIES: No clubbing, cyanosis, or edema.No joint effusion, has good ROM. No calf tenderness. Well perfused and warm. NEUROLOGICAL: Awake and alert. Cranial nerves grossly intact. Motor grossly within normal limits. PSYCHIATRIC: Normal affect, calm and cooperative. 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
--- NOTE | 2017-10-16 14:34 | RADRPT ---
EXAM DATE/TIME: 10/16/2017 13:37 [facility] COMPARISON: CT ABDOMEN & PELVIS W/O CONTRAST, October 16, 2017, 12:25. CHEST SINGLE AP, August 22, 2017, 5:10. INDICATIONS : Short of breath. MEDICAL HISTORY : Hypertension. Hiatal hernia. Diabetes mellitus type II. SURGICAL HISTORY : None. ENCOUNTER: Subsequent ACUITY: 3 days PAIN SCORE: 0/10 LOCATION: Bilateral chest FINDINGS: 2 AP views of the chest demonstrates a normal-sized cardiac silhouette with calcification of the aort a. There is a large left pneumothorax is stable in appearance compared to the earlier abdomen CT. Tub ing and lines overlie the patient but I do not clearly see a chest tube in place. There is consolidat ion in the left lower lung zone. Pleural based opacities are present bilaterally. Bones demonstrate n o acute finding. CONCLUSION: 1. Persistent large left pneumothorax. 2. Small bilateral pleural effusions. There is airspace consolidation in the left lower lung zone. Chin Ramirez MD on October 16, 2017 at 14:30 Board Certified Radiologist. This report was verified electronically.
[2017-10-16] MEDS ORDERED: ALPRAZolam 0.25 MG TAB PO PRN (14:45)
--- NOTE | 2017-10-16 17:59 | ECHRPT ---
Indication: MRSA Bacteremia CONCLUSIONS The left ventricular systolic function is severely reduced with an estimated ejection fraction in th e range of 30-35%. Normal left ventricular size. Wall thickness is normal. No regional wall motion abnormalities are present. Mildly dilated descending thoracic aorta. Aortic valve sclerosis is present. Mild aortic valve regurgitation. There is trace tricuspid valve regurgitation. The estimated pulmonary arterial pressure is 26 mmHg. The pulmonary valve is not well visualized. BP: 127 / 63 HR: 96 Rhythm: Sinus MEASUREMENTS (Male / Female) Normal Values Technical Quality:Fair 2D ECHO LV Diastolic Diameter PLAX 5.3 cm 4.2 - 5.9 / 3.9 - 5.3 cm LV Systolic Diameter PLAX 4.6 cm IVS Diastolic Thickness 1.1 cm 0.6 - 1.0 / 0.6 - 0.9 cm LVPW Diastolic Thickness 1.1 cm 0.6 - 1.0 / 0.6 - 0.9 cm LV Relative Wall Thickness 0.4 LVOT Diameter 2.1 cm M-MODE LV Diastolic Diameter MM 7.3 cm 4.2 - 5.9 / 3.9 - 5.3 cm LV Systolic Diameter MM 6.3 cm LV Ejection Fraction MM Teich 30.1 % IVS Diastolic Thickness MM 1.1 cm 0.6 - 1.0 / 0.6 - 0.9 cm LVPW Diastolic Thickness MM 1.0 cm 0.6 - 1.0 / 0.6 - 0.9 cm LV Relative Wall Thickness MM 0.3 0.24 - 0.42 / 0.22 - 0.42 Aortic Root Diameter MM 3.6 cm AV Cusp Separation MM 2.2 cm DOPPLER AV Peak Velocity 97.7 cm/s AV Peak Gradient 3.8 mmHg AI Peak Velocity 236.5 cm/s AI Peak Gradient 22.4 mmHg AI Pressure Half Time 739.0 ms LVOT Peak Velocity 65.2 cm/s LVOT Peak Gradient 1.7 mmHg AV Area Cont Eq pk 2.3 cm TR Peak Velocity 197.0 cm/s TR Peak Gradient 15.5 mmHg Right Atrial Pressure 10.0 mmHg Pulmonary Artery Systolic Pressu 25.5 mmHg Right Ventricular Systolic Press 25.5 mmHg PV Peak Velocity 73.6 cm/s PV Peak Gradient 2.2 mmHg FINDINGS LEFT VENTRICLE The left ventricular systolic function is severely reduced with an estimated ejection fraction in th e range of 30-35%. Normal left ventricular size. Wall thickness is normal. No regional wall motion abnormalities are present. RIGHT VENTRICLE Normal right ventricular size and systolic function. LEFT ATRIUM The left atrial size is normal. RIGHT ATRIUM The right atrial size is normal. ATRIAL SEPTUM Normal atrial septal thickness without atrial level shunting by limited color doppler interrogation. AORTA Mildly dilated descending thoracic aorta. MITRAL VALVE Structurally normal mitral valve. No mitral valve stenosis or regurgitation. AORTIC VALVE Trileaflet aortic valve. Aortic valve sclerosis is present. Mild aortic valve regurgitation. TRICUSPID VALVE Structurally normal tricuspid valve. There is trace tricuspid valve regurgitation. The estimated pulmonary arterial pressure is 26 mmHg. PULMONARY VALVE The pulmonary valve is not well visualized. VESSELS The inferior vena cava is normal in size. PERICARDIUM No pericardial effusion. Donato Woodall MD (Electronically Signed) Final Date:16 October 2017 17:58
[2017-10-16] MEDS: RESP: ALBUTEROL 2.5 MG/IPRATROPIUM 0.5 MG NEB (SCH) NEB (20:00)
[2017-10-16] MEDS ORDERED: ATROPINE SULFATE 1 MG/10 ML SYRINGE ONE (20:51)
[2017-10-16] MEDS ORDERED: EPINEPHrine HCL (1:10,000) 1 MG/10 ML SYRINGE ONE (20:51)
[2017-10-16] MEDS ORDERED: MIDAZOLAM HCL 2 MG/2 ML VIAL ONE (20:57)
[2017-10-16] MEDS: DONEPEZIL HCL 5 MG TAB PO SCH (21:00)
--- NOTE | 2017-10-16 21:25 | PD.RAD ---
Post Procedure Progress Note Pre Procedure Diagnosis: (1) Pneumothorax (2) Hypoxia Post Procedure Diagnosis: (1) Pneumothorax (2) Hypoxia Procedure Date: Oct 16, 2017 Supervising Radiologist: Luis M Duff Proceduralist/Assist: Sixto Love RT(R) Anesthesia: Conscious Sedation Plan of Activity Patient to Unit: Critical Care Patient Condition: Good See PACS Report for procedural detail/treatment Luis M Duff MD Oct 16, 2017 21:25
[2017-10-16 23:10] LABS: BLOOD GAS BASE EXCESS 5.5 mmol/L (-2-2); BLOOD GAS CARBOXYHEMOGLOBIN 0.7 % (0-4); BLOOD GAS HCO3 32 mmol/L (22-26); BLOOD GAS O2 HGB SATURATION 85 % (90-100); BLOOD GAS OXYGEN CONTENT 14.8 Vol % (12.0-20.0); BLOOD GAS PCO2 65 mmHg (38-42); BLOOD GAS PO2 60 mmHg (61-120); BLOOD GAS TOTAL HGB 12.3 G/DL (12.0-16.0); TEMP CORR TO 98.6
[2017-10-16 23:11] LABS: CRITICAL VALUE YES
[2017-10-16 23:12] LABS: DRAW SITE LT RADIAL; FIO2 35 %; LITER FLOW 4 L/M; NUMBER OF ARTERIAL PUNCTURES 1; OXYGEN DEVICE NASAL CANNULA; STAT NO; ULNAR PULSE PRESENT
[2017-10-17] VITALS (13 sets, daily range): BP systolic 113–150; BP diastolic 63–88; PULSE 68–98; RESP 16–20; TEMP 97.9–98.6; O2SAT 93–99
[2017-10-17] MEDS: VANCOMYCIN 1,000 MG/NS 250 ML IV SCH ×4 (00:06→12:30)
[2017-10-17] MEDS: DILTIAZEM HCL 60 MG TAB PO SCH ×5 (00:07→18:00)
[2017-10-17] MEDS: LEVOTHYROXINE SODIUM 100 MCG TAB PO SCH (06:00)
--- NOTE | 2017-10-17 06:12 | MB ---
cc: FREDO RUSS DATE OF CONSULTATION 10/16/2017 REASON FOR CONSULTATION Respiratory distress and pneumothorax. HISTORY OF PRESENT ILLNESS This is an 89-year-old white male who was admitted with lethargy and confusion, has had a previous history of UTI. The patient has been on IV antibiotic therapy and upon admission to the ER blood cultures were obtained and the patient has had MRSA growing from blood cultures and thus he was started on IV antibiotic therapy including vancomycin. The CT of the abdomen was done to evaluate him for hydronephrosis and abdominal CT showed cholelithiasis, right-sided hydronephrosis and hydroureter and a large pneumothorax on the left as well as bibasilar consolidation and pleural effusions. The patient also had abdominal wall hernia with multiple bowel loops and a decompressed urinary bladder with a possible thrombus. He has been on IV fluids and oxygen via nasal cannula at 4 liters. A chest x-ray was repeated yesterday and it showed a large left pneumothorax again. The patient is unable to provide any details of his complaints or history and seems lethargic still. PAST MEDICAL HISTORY 1. History of diabetes mellitus. 2. History of hypertension. 3. Past history for prostatic hypertrophy with obstructive uropathy and hydronephrosis. 4. He had a suprapubic catheter and recurrent UTIs. 5. Hiatal hernia. 6. Abdominal wall hernia. 7. History of gastric ulcers. 8. Hypothyroidism. PAST SURGICAL HISTORY 1. Tonsillectomy. 2. Repair of gastric perforation. 3. Cystoscopies. ALLERGIES HYDROCODONE. TAPE. HABITS The patient has no history of smoking. No significant alcohol intake. FAMILY HISTORY Significant for malignancy. SYSTEMS REVIEW The patient is unable to provide details, was confused. PHYSICAL EXAMINATION GENERAL: This is a thinly built elderly man, in bed pale and mildly dyspneic. VITAL SIGNS: His blood pressure 140/70, pulse is 80, respirations 18, temperature 98.2. HEENT: Head normocephalic. Pupils are reactive. Tongue is dry. Throat mildly injected. He has no inflammation. NECK: Supple. No venous distension. No thyromegaly. CHEST: Equal movements with distant breath sounds. Occasional basilar crackles heard. Wheezes are heard over the left lung field. HEART: The heart sounds are irregular. S1 and S2. No murmur. No S3. ABDOMEN: Soft, protuberant. No masses, no organomegaly or tenderness. Bowel sounds are active. EXTREMITIES: Mild varicosities and no edema. Peripheral pulses are diminished. Reflexes are 1+. There is muscle wasting of the extremities. The patient does move his extremities to command. Babinski negative. SKIN: No lesions observed. IMPRESSION 1. Large left pneumothorax with compressive atelectasis in left lung. 2. UTI and sepsis. 3. Basilar pneumonia. 4. History of hypertension. 5. Diabetes mellitus. 6. Altered mental status. PLAN 1. The patient will be placed on O2 by nasal cannula at 4 liters. 2. Blood gas study was ordered. 3. He will need a chest tube placed on the left side and a request was made for Radiology for a chest tube placement under CT guidance since there are multiple loculations noted. 4. The patient will be placed on DuoNeb solution with a nebulizer q.i.d. 5. Incentive spirometry every 3 hours at the bedside. 6. Repeat chest x-ray and CBC to be done in the a.m. 7. Continue with antibiotic coverage as ordered. Thank you Dr. Jones for this consultation. Fredo Russ MD JANGEL LUIS/MANNIE /12:31 AM /5:57 AM
[2017-10-17] MEDS: SODIUM CHLOR 0.9% 1000 ML INJ 1,000 ML IV SCH (06:16)
--- NOTE | 2017-10-17 07:42 | RADRPT ---
EXAM DATE/TIME: 10/16/2017 22:20 [facility] COMPARISON: No previous studies available for comparison. INDICATIONS : Large symptomatic left sided pneumothorax. Urgent chest tube placement requested. MEDICAL HISTORY : Diabetes HTN HLD BPH Obstructive uropathy UTI SURGICAL HISTORY : Tonsillectomy Cataract extractions Cystoscopy ENCOUNTER: Initial ACUITY: 1 day PAIN SCORE: 3/10 LOCATION: Shortness of breath FLUORO TIME: 0.9 minutes IMAGE SERIES: 2 SEDATION TIME: 30 minutes MEDICATION(S): 1.) 2 mg midazolam (Versed) IV 2.) 100 mcg fentanyl (Sublimaze) IV DEVICE(S): 1.) 10 Bangladeshi non-locking catheter PROCEDURE : 1. Fluoroscopically guided chest tube placement. 2. Conscious sedation with continuous EKG and oximetry monitoring. The risks, benefits and alternatives to the procedure were explained and verbal and written consent w as obtained. The site was prepped in sterile fashion. Full sterile technique was used, including ca p, mask, sterile gloves and gown and a large sterile sheet. Hand hygiene and 2% chlorhexidine and/or betadine/alcohol prep was utilized per protocol for cutaneous antisepsis. The skin and subcutaneous tissues were infiltrated with local anesthetic solution. With fluoroscopic guidance the chest was punctured between the first and second interspace and the pr escribed catheter was placed in the lung apex. Wall suction was applied. Post procedure images demon strate satisfactory position of the tube. The catheter was sutured in place and a Percu-Stay was janette lied. Conscious sedation was performed with the prescribed dosages and duration as above in the presence of an independent trained radiology nurse to assist in the monitoring of the patient. EKG and oximetry remained stable throughout the procedure. The patient tolerated the procedure well and there were n o complications. The patient was sent to post anesthesia recovery in stable condition. CONCLUSION: Uncomplicated chest tube placement as above. Luis M Duff MD on October 17, 2017 at 7:37 Board Certified Radiologist. This report was verified electronically.
[2017-10-17] MEDS: INSULIN ASPART SUPPLEMENTAL SCALE SQ SCH ×4 (08:00→21:53)
[2017-10-17] MEDS: RESP: ALBUTEROL 2.5 MG/IPRATROPIUM 0.5 MG NEB (SCH) NEB ×4 (08:11→21:28)
--- NOTE | 2017-10-17 08:28 | RADRPT ---
EXAM DATE/TIME: 10/17/2017 07:58 [facility] COMPARISON: CHEST SINGLE AP, October 16, 2017, 13:37. INDICATIONS : Shortness of breath, evaluation for pneumothorax. MEDICAL HISTORY : Hypertension. Hiatal hernia. Diabetes mellitus type II. SURGICAL HISTORY : None. ENCOUNTER: Initial ACUITY: 1 day PAIN SCORE: 0/10 LOCATION: Bilateral chest FINDINGS: Interval placement of left-sided chest tube with significantly improved left-sided pneumothorax. Airs pace disease in the left lower lobe likely reflects atelectasis. Redemonstration of biapical bullous emphysema. Cardiomediastinal contours are stable. Remainder of the exam is unchanged. CONCLUSION: 1. Significantly improved left-sided pneumothorax following chest tube placement. 2. Left lower lobe airspace disease, presumed compressive atelectasis. 3. Biapical bullous emphysema. Luis M Duff MD on October 17, 2017 at 8:24 Board Certified Radiologist. This report was verified electronically.
[2017-10-17] MEDS: SODIUM CHLORIDE 0.9% FLUSH 10 ML FLUSH IV FLUSH SCH ×2 (09:00→21:47)
[2017-10-17] MEDS: METOPROLOL SUCCINATE 50 MG EXTENDED RELEASE TAB PO SCH (09:45)
[2017-10-17] MEDS: ASPIRIN 81 MG CHEW TAB CHEW SCH ×2 (09:45→21:52)
[2017-10-17] MEDS: POTASSIUM CHLORIDE 20 MEQ CONTROLLED RELEASE TAB PO SCH (09:45)
[2017-10-17] MEDS: glyBURIDE 5 MG TAB PO SCH (09:45)
[2017-10-17] MEDS: LACTOBACILLUS ACIDOPHILUS TAB PO SCH ×2 (09:45→21:52)
[2017-10-17] MEDS: TAMSULOSIN HCL 0.4 MG CAP PO SCH (09:46)
[2017-10-17] MEDS: ESCITALOPRAM OXALATE 10 MG TAB PO SCH (09:46)
[2017-10-17] MEDS: HYDROCORTISONE 10 MG TAB PO SCH (09:51)
--- NOTE | 2017-10-17 10:41 | HHI.IDPN ---
Subjective Subjective Remarks Patient is an 89-year-old male, who lives at home, brought into the hospital for further evaluation of increasing lethargy, and confusion. Patient lives at home alone, and usually the family arranges for [employer] to check up on him or stay with him during the day. He has had problem with multiple UTIs, and apparently his urine was tested and there was some evidence of UTI, and Cipro was called in. Patient however did not start Cipro because he was getting more confused so he was taken to the hospital for further evaluation and treatment. His been noted to be getting some hallucination. There's been no fever or chills or sweats. No noted respiratory problem. He has not had any nausea or vomiting or any diarrhea. Patient also since his been lethargic has not been ambulating as before. Patient has not been febrile. His WBC was elevated. His suprapubic catheter was changed in the emergency room. Apparently gets changed once a month. Patient could not tell me when the last time it was change but during his last hospitalization in August, he underwent cystoscopy, evacuation of hematoma and exchange of his suprapubic catheter done by Dr. Armstrong. 1 out of the 2 blood cultures growing MRSA. His urine culture has MRSA. He has had previous urine culture that had MRSA. Infectious disease consultation has been requested to evaluate the patient. Patient currently remains very confused. Notes reviewed Afebrile Has CT on L side 2 BC on admission with MRSA Repeat BC pending CT A/P with R hydronephrosis, improving hydro on L WBC slightly lower Antibiotics Current Medications Vancomycin IV Medications (Trade) Dose Ordered Sig/Shanel Route Start Time Stop Time Status Last Admin (D50w (Vial) Inj) 50 ml UNSCH PRN IV PUSH 10/12/17 12:00 (Glucagon Inj) 1 mg UNSCH PRN OTHER 10/12/17 12:00 (NovoLOG SUPPLEMENTAL SCALE) 1 ACHS SLIDING SCALE SQ 10/12/17 12:00 10/16/17 12:05 Sodium Chloride 1,000 ml @ 70 mls/hr [id number] IV 10/12/17 11:52 10/17/17 06:16 (NS Flush) 2 ml UNSCH PRN IV FLUSH 10/12/17 12:00 (NS Flush) 2 ml BID IV FLUSH 10/12/17 21:00 10/15/17 21:41 (Tylenol) 650 mg Q4H PRN PO 10/12/17 12:00 (Zofran Inj) 4 mg Q6H PRN IVP 10/12/17 12:00 (Tylenol) 650 mg Q6H PRN PO 10/12/17 12:00 (Narcan Inj) 0.4 mg UNSCH PRN IV PUSH 10/12/17 12:00 (Milk Of Magnesia Liq) 30 ml Q12H PRN PO 10/12/17 12:00 (Lactinex) 1 tab Q12HR PO 10/12/17 21:00 10/17/17 09:45 Pharmacy Profile Note 0 ml @ 0 mls/hr UNSCH PRN OTHER 10/12/17 12:00 Vancomycin HCl 1000 mg/Sodium Chloride 250 ml @ 250 mls/hr Q12H IV 10/13/17 00:00 10/17/17 00:06 (Aspirin Chew) 81 mg BID CHEW 10/12/17 21:00 10/17/17 09:45 (Aricept) 5 mg HS PO 10/12/17 21:00 10/15/17 21:40 (Lexapro) 5 mg DAILY PO 10/13/17 09:00 10/17/17 09:46 (Diabeta) 5 mg DAILY@0800 PO 10/13/17 08:00 10/17/17 09:45 (Cortef) 2.5 mg DAILY PO 10/13/17 09:00 10/17/17 09:51 (Synthroid) 100 mcg DAILY@0600 PO 10/13/17 06:00 10/17/17 06:00 (Prinivil) 10 mg DAILY PO 10/13/17 09:00 Future Hold 10/13/17 08:43 (Toprol Xl) 50 mg DAILY PO 10/13/17 09:00 10/17/17 09:45 (KCl) 20 meq DAILY PO 10/13/17 09:00 10/17/17 09:45 (Silvadene 1% Cream (50 Gm)) 1 applic DAILY PRN TOPICAL 10/12/17 14:30 (Flomax) 0.4 mg DAILY PO 10/13/17 09:00 10/17/17 09:46 (Pill Splitter) 1 ea UNSCH PRN OTHER 10/12/17 14:45 (Vasotec Inj) 2.5 mg Q6H PRN IV PUSH 10/12/17 15:00 10/13/17 06:34 (Catapres) 0.1 mg Q6H PRN PO 10/12/17 15:00 10/12/17 17:00 Diltiazem HCl 125 mg/Sodium Chloride 125 ml @ 5 mls/hr TITRATE PRN IV 10/13/17 04:15 10/13/17 14:07 (Cardizem) 60 mg Q6HR PO 10/14/17 12:00 10/17/17 06:00 (Xanax) 0.125 mg Q6H PRN PO 10/16/17 14:45 (Duoneb Neb) 1 ampule QID NEB NEB 10/16/17 20:00 10/17/17 08:11 Lines PIV Past Medical History DM Hypertension Hyperlipidemia BPH obstructive uropathy s/p suprapubic catheter recurrent UTIs Hiatal hernia gastric ulcers hypothyroidism Past Surgical History Cataract extractions Tonsillectomy Cystoscopy with suprapubic catheter placement Gastric perforation repair Allergies: Coded Allergies: adhesive tape (Verified Allergy, Severe, Hives, 10/12/17) hydrocodone (Verified Allergy, Severe, HIVES, 10/12/17) Objective . Vital Signs Date Time Temp Pulse Resp B/P (MAP) Pulse Ox O2 Delivery O2 Flow Rate FiO2 10/17/17 09:00 98.2 77 16 119/63 (81) 93 10/17/17 08:11 93 Nasal Cannula 4.00 10/17/17 04:01 97.9 83 16 133/68 (89) 95 10/17/17 04:00 78 10/17/17 00:20 96 Venturi Mask 5.00 35 10/17/17 00:00 72 10/17/17 00:00 98.2 68 18 113/64 (80) 96 10/16/17 20:52 96 Nasal Cannula 4.00 10/16/17 20:00 98.0 80 16 135/72 (93) 96 10/16/17 20:00 84 10/16/17 19:00 96 Nasal Cannula 4.00 10/16/17 18:24 98.1 94 18 131/77 (95) 94 10/16/17 14:39 96.7 92 24 148/81 (103) 92 10/16/17 12:00 89 10/16/17 10:49 Nasal Cannula 4.00 10/16/17 10:49 95 . Laboratory Tests Test 10/17/17 06:42 Creatinine 0.38 MG/DL Estimat Glomerular Filtration Rate 215 ML/MIN Microbiology Date/Time Source Procedure Growth Status 10/16/17 05:30 Blood Peripheral Aerobic Blood Culture Pending Received 10/16/17 05:30 Blood Peripheral Anaerobic Blood Culture Pending Received 10/16/17 05:20 Blood Peripheral Aerobic Blood Culture Pending Received 10/16/17 05:20 Blood Peripheral Anaerobic Blood Culture Pending Received Imaging Abdomen/Pelvis CT 10/15/17 0000 Signed Impressions: Service Date/Time: October 12:25 - CONCLUSION: 1. Large pneumothorax on the left. Chest tube likely needed. 2. Bibasilar consolidation and pleural effusions. 3. Cholelithiasis. 4. Right-sided hydronephrosis and hydroureter. Left-sided hydronephrosis has resolved. 5. Distal abdominal aortic aneurysm measuring 3.8 x 3.2 cm. 6. Large hernia abdominal wall containing multiple bowel loops. No signs of obstruction or strangulation 7. Massive enlargement of the prostate gland. 8. Hyperdense material within decompressed urinary bladder, can be thrombus. Kris Levin MD Head CT 10/14/17 0000 Signed Impressions: Service Date/Time: Saturday, October 14, 2017 05:16 - CONCLUSION: Stable noncontrast head CT. Emanuel Gandara MD Physical Exam GENERAL: awake and alert, not in respiratory distress. He is confused SKIN: Warm and dry. No generalized rash, no ecchymoses and no evidence of embolic lesions. HEAD: Atraumatic. Normocephalic. No temporal wasting, or tenderness. EYES: [place] conjunctiva. No petechia or hemorrhage. Pupils equal, round and reactive to light. No scleral icterus. No injection or drainage. EARS, NOSE AND THROAT: Nose without bleeding or purulent nasal discharge. No sinus tenderness. Mucous membranes pink and moist. No oral lesions noted. NECK: Trachea midline. Supple and not tender, no meningeal signs CARDIOVASCULAR: Regular rate and rhythm. No murmurs, rubs or gallops heard. Decreased BS bases, CT on L RESPIRATORY: Clear to auscultation. Breath sounds equal bilaterally. No rales , wheezing or rhonchi ABDOMEN: Soft, non-tender, nondistended. Bowel sounds present and normoactive. No guarding. No rebound. No organomegaly. SPC site looks ok. He has reducible hernia in mid abdomen EXTREMITIES: No clubbing, cyanosis, or edema.No joint effusion, has good ROM. No calf tenderness. Well perfused and warm. NEUROLOGICAL: Awake and alert. Cranial nerves grossly intact. Motor grossly within normal limits. PSYCHIATRIC: Normal affect, calm and cooperative. 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
--- NOTE | 2017-10-17 10:48 | MB ---
cc: LALA HOPE DATE OF CONSULTATION 10/17/2017 REASON FOR CONSULTATION Mr. Courtney is an 89-year-old male with history of BPH with obstruction and recurrent urinary tract infections who had a suprapubic tube placed approximately three to four months ago. After one month, his suprapubic tube was found to be dislodged and he required a revisit to the operating room to have this placed correctly. The patient does have a history of recurrent urinary tract infections and has had sepsis in the past. His urine culture in the past has grown out MRSA. The patient, at this time, presented with confusion and lethargy and was admitted to the hospital and found to have a left-sided pneumothorax requiring chest tube placement and was currently being treated for sepsis. His urine culture grew out Staph aureus MRSA. His blood cultures have been negative thus far. Since his admission, he is clinically improving and he is much more awake and alert and oriented x3. PAST MEDICAL HISTORY His medical history includes: 1. Diabetes 2. Hypertension 3. Hyperkalemia 4. BPH with obstruction requiring catheter placement 5. Hypothyroidism 6. Hiatal hernia PAST SURGICAL HISTORY 1. Suprapubic catheter insertion 2. Tonsillectomy 3. Gastric surgery for perforation in the past. ALLERGIES ADHESIVE TAPE AND HYDROCODONE. MEDICATIONS For medications please refer to the chart. FAMILY HISTORY Notable for a prior history of cancer. It is unclear of the type. SOCIAL HISTORY Denies any history of smoking. Denies drinking. Currently lives alone. REVIEW OF SYSTEMS He notes some chest pain due to the chest tube in place. Denies abdominal pain. Does have some complains of rectal pain at times, but denies diarrhea or constipation. Denies bleeding disorders. Denies heat and cold tolerance. Denies headache. Denies vision loss. Some hearing loss is noted. The remaining review of systems were reviewed and were negative. PHYSICAL EXAM VITAL SIGNS: Today, temperature is 98.2, heart rate 77, respiratory rate 16, blood pressure 102/63, 93% on room air. GENERAL: He is a thin 89-year-old male in no acute distress. HEAD, EARS, EYES, NOSE, AND THROAT: Head is normocephalic, atraumatic. Pupils equal round regular, react to light. Extraocular movements intact. NECK: Supple. HEART: Regular rate and rhythm. LUNGS: Diminished breath sounds on the left. ABDOMEN: Soft, nontender, nondistended. SP tube is in place. : Normal phallus. Testes are descended. EXTREMITIES: Show no evidence of cyanosis, clubbing or edema. NEUROLOGIC: Cranial nerves II through XII intact. PSYCH: Generalized mood. NEUROLOGIC: He is alert and oriented x3. LABORATORY DATA White count 14.7, hemoglobin 13.4, hematocrit 42.3, platelet count of 410. Sodium 138, potassium 3.8, chloride 103, CO2 24.5, BUN 12, creatinine 0.46, glucose of 121. IMAGING STUDIES Showed a CT scan of the abdomen and pelvis on 10/15 which showed a large left pneumothorax, right-sided hydronephrosis and hydroureter with resolved left-sided hydronephrosis. Massively enlarged prostate gland with hypodense material and a decompressed bladder. ASSESSMENT This is an 89-year-old male admitted with sepsis and a left pneumothorax with MRSA, UTI and SP tube placed three to four months ago. SP tube was change in the emergency room on admission. We will continue with drainage for now. Right-sided hydronephrosis appears to be moderate and in view of a normal creatinine, this could be present due to recent infection and sepsis. We will continue to observe at this point. No need for a stent at this time. Continue IV antibiotics and we will follow with you. Thank you for the consult and allowing me to participate in the care of this patient. Lala HAWKINS /10:10 AM /10:35 AM
[2017-10-17 11:28] LABS: BACTERIA, URINE RARE /hpf; BLOOD, URINE MOD (NEG); COMMENT (UR) CULTURE INDICATED; CULTURE IF INDICATED CULTURE INDICATED; GLUCOSE,URINE NEG (NEG); KETONE, URINE 10 mg/dL (NEG); MUCUS URINE FEW /lpf (OCC); NITRITE,URINE NEG (NEG); URINE COLOR YELLOW (YELLW/STRAW)
--- NOTE | 2017-10-17 12:11 | HHI.PR ---
Subjective Remarks in no distress. denies pain. no fever. chest tube in place. Objective Vitals Vital Signs Date Time Temp Pulse Resp B/P (MAP) Pulse Ox O2 Delivery O2 Flow Rate FiO2 10/17/17 09:00 98.2 77 16 119/63 (81) 93 10/17/17 08:11 93 Nasal Cannula 4.00 10/17/17 04:01 97.9 83 16 133/68 (89) 95 10/17/17 04:00 78 10/17/17 00:20 96 Venturi Mask 5.00 35 10/17/17 00:00 72 10/17/17 00:00 98.2 68 18 113/64 (80) 96 10/16/17 20:52 96 Nasal Cannula 4.00 10/16/17 20:00 98.0 80 16 135/72 (93) 96 10/16/17 20:00 84 10/16/17 19:00 96 Nasal Cannula 4.00 10/16/17 18:24 98.1 94 18 131/77 (95) 94 10/16/17 14:39 96.7 92 24 148/81 (103) 92 I/O 10/16/17 10/16/17 10/16/17 10/17/17 10/17/17 10/17/17 07:00 15:00 23:00 07:00 15:00 23:00 Intake Total 240 ml 840 ml 1037 ml Output Total 1500 ml 1625 ml 1325 ml Balance -1260 ml -785 ml -288 ml Intake Oral 240 ml 840 ml IV Total 1037 ml Output Urine Total 1500 ml 1625 ml 725 ml Chest Tube Drainage Total 600 ml # Bowel Movements 1 1 1 Result Diagram: 10/15/17 0655 10/17/17 0642 Imaging Last Impressions Chest X-Ray 10/17/17 0000 Signed Impressions: Service Date/Time: Tuesday, October 17, 2017 07:58 - CONCLUSION: 1. Significantly improved left-sided pneumothorax following chest tube placement. 2. Left lower lobe airspace disease, presumed compressive atelectasis. 3. Biapical bullous emphysema. Luis M Duff MD Chest Tube Insertion 10/16/17 193 Signed Impressions: Service Date/Time: October 22:20 - CONCLUSION: Uncomplicated chest tube placement as above. Luis M Duff MD Abdomen/Pelvis CT 10/15/17 0000 Signed Impressions: Service Date/Time: October 12:25 - CONCLUSION: 1. Large pneumothorax on the left. Chest tube likely needed. 2. Bibasilar consolidation and pleural effusions. 3. Cholelithiasis. 4. Right-sided hydronephrosis and hydroureter. Left-sided hydronephrosis has resolved. 5. Distal abdominal aortic aneurysm measuring 3.8 x 3.2 cm. 6. Large hernia abdominal wall containing multiple bowel loops. No signs of obstruction or strangulation 7. Massive enlargement of the prostate gland. 8. Hyperdense material within decompressed urinary bladder, can be thrombus. Kris Levin MD Head CT 10/14/17 0000 Signed Impressions: Service Date/Time: Saturday, October 14, 2017 05:16 - CONCLUSION: Stable noncontrast head CT. Emanuel Gandara MD Objective Remarks GENERAL: elderly male, in no apparent distress. CARDIOVASCULAR: tachycardic with irregular rhythm without murmurs, gallops, or rubs. RESPIRATORY: Clear to auscultation. Breath sounds equal bilaterally. No wheezes , rales, or rhonchi. GASTROINTESTINAL: Abdomen soft, non-tender, nondistended. Normal, active bowel sounds MUSCULOSKELETAL: Extremities without clubbing, cyanosis, or edema. NEURO: awake and alert. Medications and IVs Current Medications Sodium Chloride 1,000 ml @ 2,000 mls/hr Q30M ONCE IV Last administered on 10/12 10:45; Start 10/12/17 at 10:00; Stop 10/12/17 at 10:29; Status DC Vancomycin HCl 1500 mg/Sodium Chloride 515 ml @ 257.5 mls/ hr ONCE ONCE IV Last administered on 10/12/17 13:50; Start 10/12/17 at 11:30; Stop 10/12/17 at 13:29; Status DC Gentamicin Sulfate 80 mg/ Sodium Chloride 102 ml @ 100 mls/hr ONCE ONCE IV Last administered on 10/12/17 12:08; Start 10/12/17 at 11:30; Stop 10/12/17 at 12:31; Status DC Dextrose (D50w (Vial) Inj) 50 ml UNSCH PRN IV PUSH HYPOGLYCEMIA-SEE COMMENTS; Start 10/12/17 at 12:00 Glucagon (Glucagon Inj) 1 mg UNSCH PRN OTHER HYPOGLYCEMIA-SEE COMMENTS; Start 10/12/17 at 12:00 Insulin Aspart (NovoLOG SUPPLEMENTAL SCALE) 1 ACHS SLIDING SCALE SQ Last administered on 10/16/17 12:05; Start 10/12/17 at 12:00 Sodium Chloride 1,000 ml @ 70 mls/hr [id number] IV Last administered on 06:16; Start 10/12/17 at 11:52 Sodium Chloride (NS Flush) 2 ml UNSCH PRN IV FLUSH FLUSH AFTER USING IV ACCESS ; Start 10/12/17 at 12:00 Sodium Chloride (NS Flush) 2 ml BID IV FLUSH Last administered on 10/15/17 21: 41; Start 10/12/17 at 21:00 Acetaminophen (Tylenol) 650 mg Q4H PRN PO TEMP > 100.4; Start 10/12/17 at 12:00 Ondansetron HCl (Zofran Inj) 4 mg Q6H PRN IVP NAUSEA OR VOMITING; Start at 12:00 Acetaminophen (Tylenol) 650 mg Q6H PRN PO PAIN SCALE 1 TO 2; Start 10/12/17 at 12:00 Naloxone HCl (Narcan Inj) 0.4 mg UNSCH PRN IV PUSH SEE LABEL COMMENTS; Start 10/12/17 at 12:00 Magnesium Hydroxide (Milk Of Magnesia Liq) 30 ml Q12H PRN PO Mild constipation ; Start 10/12/17 at 12:00 Lactobacillus Acidophilus (Lactinex) 1 tab Q12HR PO Last administered on 09:45; Start 10/12/17 at 21:00 Pharmacy Profile Note 0 ml @ 0 mls/hr UNSCH PRN OTHER ADJUST FOR CREATININE CLRNCE; Start 10/12/17 at 12:00 Vancomycin HCl 1250 mg/Sodium Chloride 262.5 ml @ 262.5 mls/ hr Q12H IV ; Start 10/13/17 at 09:00; Status Cancel Piperacillin Sod/ Tazobactam Sod 50 ml @ 100 mls/hr Q8H IV Last administered on 10/15/17 03:59; Start 10/12/17 at 20:00; Stop 10/15/17 at 10:52; Status DC Vancomycin HCl 1000 mg/Sodium Chloride 250 ml @ 250 mls/hr Q12H IV Last administered on 10/17/17 00:06; Start 10/13/17 at 00:00 Miscellaneous Information SPECIFIC LAB TO BE PAPITO... ONCE ONCE .XX Last administered on 10/14/17 03:00; Start 10/13/17 at 23:45; Stop 10/13/17 at 23:46 ; Status DC Aspirin (Aspirin Chew) 81 mg BID CHEW Last administered on 10/17/17 09:45; Start 10/12/17 at 21:00 Donepezil HCl (Aricept) 5 mg HS PO Last administered on 10/15/17 21:40; Start 10/12/17 at 21:00 Escitalopram Oxalate (Lexapro) 5 mg DAILY PO Last administered on 10/17/17 09: 46; Start 10/13/17 at 09:00 Glyburide (Diabeta) 5 mg DAILY@0800 PO Last administered on 10/17/17 09:45; Start 10/13/17 at 08:00 Hydrocortisone (Cortef) 2.5 mg DAILY PO Last administered on 10/17/17 09:51; Start 10/13/17 at 09:00 Levothyroxine Sodium (Synthroid) 100 mcg DAILY@0600 PO Last administered on 06:00; Start 10/13/17 at 06:00 Lisinopril (Prinivil) 10 mg DAILY PO Last administered on 10/13/17 08:43; Start 10/13/17 at 09:00; Status Future Hold Metoprolol Succinate (Toprol Xl) 50 mg DAILY PO Last administered on 10/17/17 09:45; Start 10/13/17 at 09:00 Potassium Chloride (KCl) 20 meq DAILY PO Last administered on 10/17/17 09:45; Start 10/13/17 at 09:00 Silver Sulfadiazine (Silvadene 1% Cream (50 Gm)) 1 applic DAILY PRN TOPICAL APPLY TO AFFECTED AREA S/P; Start 10/12/17 at 14:30 Tamsulosin HCl (Flomax) 0.4 mg DAILY PO Last administered on 10/17/17 09:46; Start 10/13/17 at 09:00 Non-Formulary Medication 50 mg TID PO ; Start 10/12/17 at 18:00; Status UNV Miscellaneous (Pill Splitter) 1 ea UNSCH PRN OTHER SEE LABEL COMMENTS; Start 10/12/17 at 14:45 Enalaprilat (Vasotec Inj) 2.5 mg Q6H PRN IV PUSH SBP>160, DBP>90 Last administered on 10/13/17 06:34; Start 10/12/17 at 15:00 Clonidine (Catapres) 0.1 mg Q6H PRN PO SBP>160, DBP>90 Last administered on 17:00; Start 10/12/17 at 15:00 Influenza Virus Vaccine (Flu (Quadrivalent) Vaccine Inj) 0.5 ml ONCE ONCE IM Last administered on 10/13/17 08:42; Start 10/13/17 at 10:00; Stop 10/13/17 at 10:01; Status DC Metoprolol Tartrate (Lopressor) 12.5 mg ONCE ONCE PO Last administered on 10/12 20:36; Start 10/12/17 at 20:30; Stop 10/12/17 at 20:31; Status DC Diltiazem HCl (Cardizem Inj) 15 mg ONCE ONCE IV PUSH Last administered on 10/13 04:48; Start 10/13/17 at 04:15; Stop 10/13/17 at 04:16; Status DC Diltiazem HCl 125 mg/Sodium Chloride 125 ml @ 5 mls/hr TITRATE PRN IV Tachycardia Last administered on 10/13/17 14:07; Start 10/13/17 at 04:15 Diltiazem HCl (Cardizem) 30 mg Q6HR PO Last administered on 10/14/17 00:15; Start 10/13/17 at 13:00; Stop 10/14/17 at 10:55; Status DC Miscellaneous Information SPECIFIC LAB TO BE DRAWN:VANCOMYCIN TROUGH DATE TO... ONCE ONCE .XX ; Start 10/15/17 at 23:45; Stop 10/15/17 at 23:46; Status DC Diltiazem HCl (Cardizem) 60 mg Q6HR PO Last administered on 10/17/17 06:00; Start 10/14/17 at 12:00 Diatrizoate Meglum/ Diatrizoate Sod ( Gastroallyson Liq) 18 ml ONCE ONCE PO Last administered on 10/16/17 06:15; Start 10/16/17 at 04:23; Stop 10/16/17 at 05:20; Status DC Alprazolam (Xanax) 0.125 mg Q6H PRN PO ANXIETY; Start 10/16/17 at 14:45 Albuterol/ Ipratropium (Duoneb Neb) 1 ampule QID NEB NEB Last administered on 10/17/17 11:18; Start 10/16/17 at 20:00 Atropine Sulfate (Atropine Inj) 1 mg STK-MED ONCE .ROUTE ; Start 10/16/17 at 20: 51; Stop 10/16/17 at 20:52; Status DC Epinephrine HCl (EPINEPHrine (1:10,000) INJ) 1 mg STK-MED ONCE .ROUTE ; Start 10/16/17 at 20:51; Stop 10/16/17 at 20:52; Status DC Fentanyl Citrate (fentaNYL INJ) 100 mcg STK-MED ONCE .ROUTE Last administered on 10/16/17 20:57; Start 10/16/17 at 20:57; Stop 10/16/17 at 20:58; Status DC Midazolam HCl (Versed Inj) 2 mg STK-MED ONCE .ROUTE Last administered on 20:57; Start 10/16/17 at 20:57; Stop 10/16/17 at 20:58; Status DC Miscellaneous Information SPECIFIC LAB TO BE PAPITO... ONCE ONCE .XX ; Start 10/18 at 23:45; Stop 10/18/17 at 23:46 A/P Problem List: (1) Sepsis ICD Code: A41.9 - Sepsis, unspecified organism Status: Resolved (2) UTI (urinary tract infection) ICD Code: N39.0 - Urinary tract infection, site not specified Status: Acute (3) Suprapubic catheter dysfunction ICD Code: T83.010A - Breakdown (mechanical) of cystostomy catheter, initial encounter (4) Hypertension ICD Code: I10 - Essential (primary) hypertension Status: Chronic (5) Diabetes mellitus ICD Code: E11.9 - Type 2 diabetes mellitus without complications Status: Chronic Assessment and Plan A/P Sepsis with Complicated UTI Failed Outpatient Treatment. +Suprapubic catheter. -Suprapubic catheter exchanged in the ED 10/12 -UC with MRSA -continue IV Vancomycin - continue on IVF hydration at 70cc/hr -Urology consult appreciated; no surgical interventions at this time. Bacteremia with MRSA- continue IV Vanco- follow the repeated blood cultures- - ID following. echo with EF35% . pneumothorax- s/p chest tube placement- keep on oxygen to keep O2 sat > 90%- pulmonary consult appreciated. Fatigue/Weakness/Inability to Ambulate/Difficulty with ADLs: suspect multifactorial secondary to recent infections, hospitalizations, and advanced age. Patient lives alone. -consulted PT/OT- A-fib with RVR- HR better controlled. - will continue metoprolol and po cardizem continue to monitor. Diabetes Mellitus -continue patient's acarbose and glyburide, hold patient's metformin -Monitor Accu-Checks and cover with medium dose Novolog SSI -hypoglycemia protocol -consulted senior manufacturing technician and citizenship instructor Hypertension: chronic, BP fairly well controlled -continue metoprolol- hold lisinopril since po cardizem was added. -monitor BP, adjust antihypertensives as needed Dementia: chronic, stable -continue patient's Aricept Hypothyroidism: chronic, stable -continue patient's synthroid buttock wound; wound care evaluation appreciated. DVT Prophylaxis: teds/SCDs DNR status. palliative care following. Shaniqua Jones MD Oct 17, 2017 12:11
--- NOTE | 2017-10-17 17:30 | HHI.HCPN ---
Reason for visit a. To assist with evaluation and management of symptoms including: Decreased appetite, confusion, debility, dyspnea b. To assist medical decision maker(s) with: better understanding of current medical conditions; weighing benefits/burdens of medical treatment options; making medical treatment decisions. . Subjective/Interval History Follow up visit for symptom management and clarification of goals. Mr. Courtney was seen and assessed in room 243. Patient appears to be sleeping , easily arouses to verbal stimuli. Patient remains intermittently confused, but this is improving. He is irritable on exam stating he is tired of lying in his own filth, although he appears to be clean. Encephalopathy is likely multifactorial; contributing factors include recent hospitalization, sepsis and underlying dementia. Patient is on Aricept at home. CT head on 10/14/2017 was stable. Pulmonology was consulted on 10/16/2017 due to worsening respiratory distress with persistent large left-sided pneumothorax requiring chest tube placement Follow-up chest x-ray today 10/17/2017 revealed significantly improved left- sided pneumothorax, left lobe airspace disease, presumably compressive atelectasis and biapical bullous edema.There is airspace consolidation in the left lower lung. Remains afebrile. + Suprapubic catheter which was exchanged in the ED on 2016. Urine culture with MRSA. Bacteremia with MRSA. Infectious disease was consulted for recommendations. Follow up and urine cultures pending. Echocardiogram with EF 30-35%. Urology was consulted on this patient with a history of BPH obstruction and recurrent urinary tract infection status post suprapubic catheter placed 3-[address] abdomen/pelvis showing cholelithiasis, right-sided hydronephrosis and hydroureter. Left-sided hydronephrosis has resolved. Distal abdominal aortic aneurysm measuring 3.8 x 3.2 cm. Large hernia abdominal wall containing multiple bowel loops. No sign of obstruction or strangulation. Massive enlargement of the prostate gland. Hyperdense material within decompressed urinary bladder, may be thrombus. Per Dr. Armstrong, hydronephrosis appears to be moderate in view of normal creatinine, this could be related to recent infection and sepsis. Will continue to monitor patient, no need for stent at this time. Patient is significantly deconditioned as evidenced by increasing weakness, weight loss, impaired skin integrity and inability to ambulate or complete ADLs independently. Wound care following. Family would like to optimize this hospitalization, considering discharge to hospice versus detention facility and attempt at rehabilitation. Community DNR was completed and placed in the patient's chart. . Family/friend interactions Attempted to contact patient's daughter via telephone to provide an update on the patient's clinical condition and current medical treatment plan. Message left on voicemail with Palliative care contact information, awaiting return phone call. . Advance Directives Living Will: Copy in medical record Health Care Surrogate: Copy in medical record Advance Directive Specifics Date completed: 05/23/2015 . Health Care Surrogate(s): Francisca Veliz is the designated [facility] decision-maker. Francisca Monet has been designated as the alternate [facility] decision-maker. . Documented care wishes: The patient completed a standard living will on 05/23/15 stating he wishes that life prolonging procedures be withheld or withdrawn in the event that 2 physicians determine there is no reasonable medical probability of recovery from a terminal condition, an end-stage condition or if he is in a permanent vegetative state. At that time, he wishes to be allowed to peacefully and naturally with only the administration of medication or performance of procedures deemed necessary to provide him comfort. . Objective Vital Signs Date Time Temp Pulse Resp B/P (MAP) Pulse Ox O2 Delivery O2 Flow Rate FiO2 10/17/17 12:21 98.6 98 20 150/88 (108) 95 10/17/17 09:00 98.2 77 16 119/63 (81) 93 10/17/17 08:11 93 Nasal Cannula 4.00 10/17/17 08:00 Nasal Cannula 2.00 10/17/17 04:01 97.9 83 16 133/68 (89) 95 10/17/17 04:00 78 10/17/17 00:20 96 Venturi Mask 5.00 35 10/17/17 00:00 72 10/17/17 00:00 98.2 68 18 113/64 (80) 96 10/16/17 20:52 96 Nasal Cannula 4.00 10/16/17 20:00 98.0 80 16 135/72 (93) 96 10/16/17 20:00 84 10/16/17 19:00 96 Nasal Cannula 4.00 10/16/17 18:24 98.1 94 18 131/77 (95) 94 Intake & Output 10/17/17 10/17/17 07:00 19:00 Intake Total 1037 ml Output Total 1325 ml Balance -288 ml IV Total 1037 ml Output Urine Total 725 ml Chest Tube Drainage Total 600 ml # Bowel Movements 1 . Physical Exam CONSTITUTIONAL/GENERAL: This is a frail, elderly male patient in no acute distress. TUBES/LINES/DRAINS: Suprapubic catheter, PIV x 2, nasal cannula, chest tube, SCDs SKIN: Wounds on left lateral ankle and sacrum. Skin temperature appropriate. Not diaphoretic. Ecchymosis on upper extremities bilaterally. HEAD: Atraumatic. Normocephalic. EYES: Pupils equal and round and reactive. No scleral icterus. No injection or drainage. Fundi not examined. ENT: Hearing grossly normal. Nose without bleeding or purulent drainage. NECK: Trachea midline. CARDIOVASCULAR: Regularly irregular. No Murmurs, gallops, or rubs. No JVD. Peripheral pulses symmetric. RESPIRATORY/CHEST: Symmetric, unlabored respirations. Clear to auscultation. Breath sounds diminished bilaterally. No wheezes, rales, or rhonchi. Left- sided chest tube in place. GASTROINTESTINAL: Abdomen soft, non-tender, nondistended. No guarding. Bowel sounds present. GENITOURINARY: Without palpable bladder distension. Suprapubic catheter in place ending clear,pale yellow urine MUSCULOSKELETAL: Extremities without clubbing, cyanosis, or edema. No mottling or clubbing. LYMPHATICS: No palpable cervical or supraclavicular adenopathy. NEUROLOGICAL: Remains intermittently confused but improving. Answers most questions appropriately, follows directions. Moving all extremities 4. PSYCHIATRIC: No obvious anxiety/depression. Intermittent hallucinations reported . Diagnostic Tests Laboratory Laboratory Tests Test 10/15/17 06:55 10/16/17 01:00 10/16/17 22:59 10/17/17 06:42 White Blood Count 14.7 TH/MM3 (4.0-11.0) Red Blood Count 4.66 MIL/MM3 (4.50-5.90) Hemoglobin 13.4 GM/DL (13.0-17.0) Hematocrit 42.3 % (39.0-51.0) Mean Corpuscular Volume 90.9 FL (80.0-100.0) Mean Corpuscular Hemoglobin 28.7 PG (27.0-34.0) Mean Corpuscular Hemoglobin Concent 31.6 % (32.0-36.0) Red Cell Distribution Width 18.8 % (11.6-17.2) Platelet Count 410 TH/MM3 (150-450) Mean Platelet Volume 7.9 FL (7.0-11.0) Neutrophils (%) (Auto) 76.0 % (16.0-70.0) Lymphocytes (%) (Auto) 15.3 % (9.0-44.0) Monocytes (%) (Auto) 5.4 % (0.0-8.0) Eosinophils (%) (Auto) 2.9 % (0.0-4.0) Basophils (%) (Auto) 0.4 % (0.0-2.0) Neutrophils # (Auto) 11.2 TH/MM3 (1.8-7.7) Lymphocytes # (Auto) 2.2 TH/MM3 (1.0-4.8) Monocytes # (Auto) 0.8 TH/MM3 (0-0.9) Eosinophils # (Auto) 0.4 TH/MM3 (0-0.4) Basophils # (Auto) 0.1 TH/MM3 (0-0.2) CBC Comment DIFF FINAL Differential Comment Blood Urea Nitrogen 12 MG/DL (7-18) Creatinine 0.46 MG/DL (0.60-1.30) 0.38 MG/DL (0.60-1.30) Random Glucose 121 MG/DL (74-106) Calcium Level 8.2 MG/DL (8.5-10.1) Sodium Level 138 MEQ/L (136-145) Potassium Level 3.8 MEQ/L (3.5-5.1) Chloride Level 103 MEQ/L (98-107) Carbon Dioxide Level 24.5 MEQ/L (21.0-32.0) Anion Gap 11 MEQ/L (5-15) Estimat Glomerular Filtration Rate 172 ML/MIN (>89) 215 ML/MIN (>89) Vancomycin Level Trough 14.2 MCG/ML (5.0-10.0) Blood Gas Puncture Site LT RADIAL Blood Gas Patient Temperature 98.6 Blood Gas HCO3 32 mmol/L (22-26) Blood Gas Base Excess 5.5 mmol/L (-2-2) Blood Gas Oxygen Saturation 85 % (90-100) Arterial Blood pH 7.31 (7.380-7.420) Arterial Blood Partial Pressure CO2 65 mmHg (38-42) Arterial Blood Partial Pressure O2 60 mmHg (61-120) Arterial Blood Oxygen Content 14.8 Vol % (12.0-20.0) Arterial Blood Carboxyhemoglobin 0.7 % (0-4) Arterial Blood Methemoglobin 1.0 % (0-2) Blood Gas Hemoglobin 12.3 G/DL (12.0-16.0) Oxygen Delivery Device NASAL CANNULA Blood Gas Liter Flow 4 L/M Blood Gas Inspired Oxygen 35 % Test 10/17/17 10:50 Urine Color YELLOW (YELLW/STRAW) Urine Turbidity HAZY (CLEAR) Urine pH 6.0 (5.0-8.5) Urine Specific Cl[place] 1.012 (1.002-1.035) Urine Protein 30 mg/dL (NEG-TRACE) Urine Glucose (UA) NEG mg/dL (NEG) Urine Ketones 10 mg/dL (NEG) Urine Occult Blood MOD (NEG) Urine Nitrite NEG (NEG) Urine Bilirubin NEG (NEG) Urine Urobilinogen LESS THAN 2.0 MG/DL (LESS Urine Leukocyte Esterase LARGE (NEG) Urine RBC 45 /hpf (0-3) Urine WBC /hpf (0-5) Urine WBC Clumps MANY (NONE) Urine Bacteria RARE /hpf (NONE) Urine Mucus FEW /lpf (OCC) Microscopic Urinalysis Comment CULTURE INDICATED Result Diagram: 10/15/17 0655 10/17/17 0642 Microbiology Microbiology Date/Time Source Procedure Growth Status 10/16/17 05:30 Blood Peripheral Aerobic Blood Culture - Preliminary NO GROWTH IN 1 DAY Resulted 10/16/17 05:30 Blood Peripheral Anaerobic Blood Culture - Preliminary NO GROWTH IN 1 DAY Resulted 10/16/17 05:20 Blood Peripheral Aerobic Blood Culture - Preliminary NO GROWTH IN 1 DAY Resulted 10/16/17 05:20 Blood Peripheral Anaerobic Blood Culture - Preliminary NO GROWTH IN 1 DAY Resulted 10/17/17 10:50 Urine Suprapubic Urine Urine Culture Pending Received Imaging Last 72 hours Impressions Chest X-Ray 10/17/17 0000 Signed Impressions: Service Date/Time: Tuesday, October 17, 2017 07:58 - CONCLUSION: 1. Significantly improved left-sided pneumothorax following chest tube placement. 2. Left lower lobe airspace disease, presumed compressive atelectasis. 3. Biapical bullous emphysema. Luis M Bozorgmanesh, MD Chest Tube Insertion 10/16/17 1934 Signed Impressions: Service Date/Time: October 22:20 - CONCLUSION: Uncomplicated chest tube placement as above. Luis M Duff MD Chest X-Ray 10/16/17 0000 Signed Impressions: Service Date/Time: October 13:37 - CONCLUSION: 1. Persistent large left pneumothorax. 2. Small bilateral pleural effusions. There is airspace consolidation in the left lower lung zone. Chin Ramirez MD Abdomen/Pelvis CT 10/15/17 0000 Signed Impressions: Service Date/Time: October 12:25 - CONCLUSION: 1. Large pneumothorax on the left. Chest tube likely needed. 2. Bibasilar consolidation and pleural effusions. 3. Cholelithiasis. 4. Right-sided hydronephrosis and hydroureter. Left-sided hydronephrosis has resolved. 5. Distal abdominal aortic aneurysm measuring 3.8 x 3.2 cm. 6. Large hernia abdominal wall containing multiple bowel loops. No signs of obstruction or strangulation 7. Massive enlargement of the prostate gland. 8. Hyperdense material within decompressed urinary bladder, can be thrombus. Kris Levin MD . Procedures 10/16/2017: Left-sided chest tube placement . Assessment and Plan Disease Oriented Problem List: (1) Dementia (2) Hypothyroidism (3) Sepsis (4) UTI (urinary tract infection) (5) Hypertension (6) Diabetes mellitus Symptom Scale: (1) Decrease in appetite (2) Debility (3) Confusion Pertinent Non-Medical Issues Psychosocial:Patient is originally from [place]. He lived in [place], [place] for many years. 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 His in 2004. The patient has 5 adult children. Two daughters live in [place]; Two sons live in [place] and one son who lives in [place] and is estranged from the family. The patient's daughter states "being cognitively sharp" is probably the most important thing to her father. Spiritual: Caodaism pam Legal: HCS and Living will completed on 05/23/2015. Francisca Veliz is the designated [facility] decision-maker. Francisca Monet has been designated as the alternate [facility] decision-maker. The patient completed a standard living will on stating he wishes that life prolonging procedures be withheld or withdrawn in the event that 2 physicians determine there is no reasonable medical probability of recovery from a terminal condition, an end-stage condition or if he is in a permanent vegetative state. At that time, he wishes to be allowed to peacefully and naturally with only the administration of medication or performance of procedures deemed necessary to provide him comfort. Ethical issues impacting care: No known ethical issues impacting care at this time. . Important Contacts Lola Veliz, daughter: [phone] . Prognosis Mr. Courtney is an 89 year old man with a complex medical history who as significantly declined in the past 6 moths. He has had multiple hospitalizations for recurrent UTIs, sepsis, pneumonia, C. difficile and bladder outlet obstruction from BPH requiring a suprapubic catheter. The patient has become progressively more weak, lethargic and confused. He has had a reported weight loss of 50 pounds in the past year and is now too weak to ambulate. Given this patient's advanced age, significant loss in functional status and recurrent infections, his over all prognosis is poor and he is hospice appropriate should his medical treatment goals become comfort focused. . Code Status: No Code Plan * NO CODE- DNR/DNI * Community DNR completed and placed in chart. * Decision-making: Patient currently does not have insight or judgment related to his clinical conditions; it is unclear if the patient will regain capacity. Francisca Veliz is the designated [facility] decision-maker. Francisca Monet has been designated as the alternate [facility] decision-maker. * The patient completed a standard living will on 05/23/15 stating he wishes that life prolonging procedures be withheld or withdrawn in the event that 2 physicians determine there is no reasonable medical probability of recovery from a terminal condition, an end-stage condition or if he is in a permanent vegetative state. At that time, he wishes to be allowed to peacefully and naturally with only the administration of medication or performance of procedures deemed necessary to provide him comfort. * GOAL: Family wishes to completed recommended IV antibiotic course before considering hospice. If goals remain aggressive at discharge, patient will need placement at a SNF for rehabilitation.. * Symptom management-decreased appetite: Decreased appetite with associated weight loss reported. Patient's daughter reports a 50 pound weight loss in the past 12 months. BMI: 23.6; albumin 2.1 Appetite improving somewhat, patient eating 75-90% of meals today 10/17/17 * Symptom management-confusion: Patient has some degree of dementia at baseline and is on Aricept at home. His confusion is likely exacerbated secondary to current clinical condition, sepsis, hospitalization in the ICU and underlying dementia. Confusion slowly improving. Will continue to monitor patient closely to ensure safety and reorient patient as appropriate. * Symptom management-debility: Patient has become progressively more weak in recent months. He is no longer able to ambulate per his daughter's report. If goals remain aggressive, patient will need placement at SNF for rehabilitation at discharge. * Symptom management- dyspnea: Patient having increasing respiratory distress yesterday 10/16/2017.; chest x-ray revealed persistent large left-sided pneumothorax requiring chest tube placement.Follow-up chest x-ray today 2016 revealed significantly improved left-sided pneumothorax, left lobe airspace disease, presumably compressive atelectasis and biapical bullous edema.There is airspace consolidation in the left lower lung. * Palliative care will continue to follow this patient throughout his hospitalization to establish trust, assist with symptom management and clarification of medical treatment goals. . Attestation To help prompt me to consider important information that might be impacting today's encounter and assessment, information from prior notes written by myself or my colleagues may have been "brought forward" into today's note. My signature on this note, however, is an attestation that I personally performed the exam, history, and/or decision-making noted today, and, unless otherwise indicated, the interactions with patient, family, and staff as well as the review of records all occurred today. I also attest that the listed assessment and stated plan reflect my best clinical judgment today based on the combination of historical information, prior notes, and today's exam/ interactions. When time spent is documented, it refers only to time spent today by the signer, or if indicated, combined time spent today by collaborating physician/nurse practitioner. . Nati Concepcion Oct 17, 2017 17:30
--- NOTE | 2017-10-17 19:13 | HHI.PR ---
Subjective Remarks Doing better. has a Left chest tube with resolving Pneumothorax. No fever. On antibiotics per ID. Objective Vital Signs Date Time Temp Pulse Resp B/P (MAP) Pulse Ox O2 Delivery O2 Flow Rate FiO2 10/17/17 12:21 98.6 98 20 150/88 (108) 95 10/17/17 09:00 98.2 77 16 119/63 (81) 93 10/17/17 08:11 93 Nasal Cannula 4.00 10/17/17 08:00 Nasal Cannula 2.00 10/17/17 04:01 97.9 83 16 133/68 (89) 95 10/17/17 04:00 78 10/17/17 00:20 96 Venturi Mask 5.00 35 10/17/17 00:00 72 10/17/17 00:00 98.2 68 18 113/64 (80) 96 10/16/17 20:52 96 Nasal Cannula 4.00 10/16/17 20:00 98.0 80 16 135/72 (93) 96 10/16/17 20:00 84 I/O 10/16/17 10/16/17 10/16/17 10/17/17 10/17/17 10/17/17 07:00 15:00 23:00 07:00 15:00 23:00 Intake Total 240 ml 840 ml 1037 ml Output Total 1500 ml 1625 ml 1325 ml 1400 ml Balance -1260 ml -785 ml -288 ml -1400 ml Intake Oral 240 ml 840 ml IV Total 1037 ml Output Urine Total 1500 ml 1625 ml 725 ml 1400 ml Chest Tube Drainage Total 600 ml # Bowel Movements 1 1 1 2 Result Diagram: 10/15/17 0655 10/17/17 0642 Objective Remarks GENERAL: This is a thinly built elderly man, in bed pale and mildly dyspneic. HEENT: Head normocephalic. Pupils are reactive. Tongue is dry. Throat mildly injected. NECK: Supple. No venous distension. No thyromegaly. CHEST: Equal movements with distant breath sounds. Occasional basilar crackles heard. Wheezes are heard over the left lung field. HEART: The heart sounds are irregular. S1 and S2. No murmur. No S3. ABDOMEN: Soft, protuberant. No masses, no organomegaly or tenderness. Bowel sounds are active. EXTREMITIES: Mild varicosities and no edema. Peripheral pulses are diminished. Reflexes are 1+. There is muscle wasting of the extremities. The patient does move his extremities to command. Babinski negative. SKIN: No lesions observed. Assessment and Plan Assessment and Plan IMPRESSION 1. Large left pneumothorax with compressive atelectasis in left lung. 2. UTI and sepsis. 3. Basilar pneumonia. 4. History of hypertension. 5. Diabetes mellitus. 6. Altered mental status. Plan : 1. Chest tube to Drainage. 2. C XR in am. 3. Duoneb nebs qid. 4. Cont Antibiotics per ID. 5. IS at bedside qid, 6. PT evaluation Blaze Russ MD Oct 17, 2017 19:13
[2017-10-17] MEDS: DONEPEZIL HCL 5 MG TAB PO SCH (21:52)
[2017-10-18] VITALS (26 sets, daily range): BP systolic 118–149; BP diastolic 60–84; PULSE 68–97; RESP 14–18; TEMP 98.3–98.8; O2SAT 94–98
--- NOTE | 2017-10-18 04:07 | RADRPT ---
EXAM DATE/TIME: 10/18/2017 03:36 [facility] COMPARISON: CHEST SINGLE AP, October 16, 2017, 13:37. INDICATIONS : Shortness of breath, possible pulmonary disease. MEDICAL HISTORY : Hypertension. Hiatal hernia. Diabetes mellitus type II. SURGICAL HISTORY : None. ENCOUNTER: Subsequent ACUITY: 3 days PAIN SCORE: 3/10 LOCATION: Bilateral chest FINDINGS: Interval placement of a left-sided chest tube with patchy airspace disease throughout the left lung. There is a small residual pneumothorax identified. There is cardiomegaly and aortic calcification. De generative changes of the spine. Right lung clear. CONCLUSION: Left sided pneumothorax again seen but decreased from the previous study. Alton Boyle MD on October 18, 2017 at 4:04 Board Certified Radiologist. This report was verified electronically.
[2017-10-18] MEDS: DILTIAZEM HCL 60 MG TAB PO SCH ×4 (06:20→18:00)
[2017-10-18] MEDS: LEVOTHYROXINE SODIUM 100 MCG TAB PO SCH (06:20)
[2017-10-18 07:52] LABS: AUTOMATED NEUTROPHIL # 7.8 TH/MM3 (1.8-7.7); BASOPHIL % 0.3 % (0.0-2.0); EOSINOPHIL # 0.4 TH/MM3 (0-0.4); EOSINOPHIL % 3.9 % (0.0-4.0); HEMATOCRIT 37.9 % (39.0-51.0); HEMO FLAGS DIFF FINAL; LYMPH % 19.4 % (9.0-44.0); LYMPHOCYTE # 2.1 TH/MM3 (1.0-4.8); MEAN CELL VOLUME 87.1 FL (80.0-100.0); MEAN CORPUSCULAR HEMOGLOBIN 28.8 PG (27.0-34.0); MONO % 6.3 % (0.0-8.0); NEUT % 70.1 % (16.0-70.0); PLATELET COUNT 411 TH/MM3 (150-450); RED BLOOD COUNT 4.35 MIL/MM3 (4.50-5.90); RED CELL DISTRIBUTION WIDTH 18.4 % (11.6-17.2); WHITE BLOOD COUNT 11.1 TH/MM3 (4.0-11.0)
[2017-10-18] MEDS: RESP: ALBUTEROL 2.5 MG/IPRATROPIUM 0.5 MG NEB (SCH) NEB ×3 (07:52→19:21)
[2017-10-18] MEDS: INSULIN ASPART SUPPLEMENTAL SCALE SQ SCH ×4 (08:00→21:28)
[2017-10-18 08:16] LABS: BICARBONATE 32.4 MEQ/L (21.0-32.0); POTASSIUM 3.3 MEQ/L (3.5-5.1)
[2017-10-18] MEDS: METOPROLOL SUCCINATE 50 MG EXTENDED RELEASE TAB PO SCH (09:00)
[2017-10-18] MEDS: LACTOBACILLUS ACIDOPHILUS TAB PO SCH ×2 (10:09→21:27)
[2017-10-18] MEDS: TAMSULOSIN HCL 0.4 MG CAP PO SCH (10:09)
[2017-10-18] MEDS: glyBURIDE 5 MG TAB PO SCH (10:09)
[2017-10-18] MEDS: HYDROCORTISONE 10 MG TAB PO SCH (10:09)
[2017-10-18] MEDS: ASPIRIN 81 MG CHEW TAB CHEW SCH ×2 (10:10→21:27)
[2017-10-18] MEDS: ESCITALOPRAM OXALATE 10 MG TAB PO SCH (10:10)
[2017-10-18] MEDS: POTASSIUM CHLORIDE 20 MEQ CONTROLLED RELEASE TAB PO SCH (10:10)
[2017-10-18] MEDS: SODIUM CHLORIDE 0.9% FLUSH 10 ML FLUSH IV FLUSH SCH ×2 (10:11→21:00)
--- NOTE | 2017-10-18 10:11 | HHI.PR ---
Subjective Remarks No distress today. Repeat blood cultures are negative 1 day thus far. MRSA present and UTI and MRSA was present on the first blood culture. Objective Vital Signs Date Time Temp Pulse Resp B/P (MAP) Pulse Ox O2 Delivery O2 Flow Rate FiO2 10/18/17 09:00 89 10/18/17 08:00 98.3 89 18 149/73 (98) 96 10/18/17 08:00 79 10/18/17 07:52 95 Nasal Cannula 4.00 10/18/17 07:00 Nasal Cannula 4.00 35 10/18/17 07:00 77 10/18/17 06:00 74 10/18/17 05:00 71 10/18/17 04:30 72 16 132/60 (84) 95 10/18/17 04:00 73 10/18/17 03:00 75 10/18/17 02:00 73 10/18/17 01:00 79 10/18/17 00:00 82 10/18/17 00:00 84 16 133/70 (91) 96 10/17/17 23:00 75 10/17/17 22:00 92 10/17/17 21:28 95 Nasal Cannula 4.00 10/17/17 21:00 87 10/17/17 20:00 87 10/17/17 20:00 98.0 84 20 131/70 (90) 99 10/17/17 19:47 98.5 85 18 144/81 (102) 95 10/17/17 19:00 86 10/17/17 19:00 96 Nasal Cannula 4.00 35 10/17/17 12:21 98.6 98 20 150/88 (108) 95 I/O 10/17/17 10/17/17 10/17/17 10/18/17 10/18/17 10/18/17 07:00 15:00 23:00 07:00 15:00 23:00 Intake Total 1037 ml 250 ml Output Total 1325 ml 1400 ml 1020 ml Balance -288 ml -1400 ml -770 ml IV Total 1037 ml 250 ml Output Urine Total 725 ml 1400 ml 1000 ml Chest Tube Drainage Total 600 ml 20 ml # Bowel Movements 1 2 Result Diagram: 10/18/1752 10/18/1752 Objective Remarks GENERAL: NAD, A&Ox3 HEAD: Normocephalic. NECK: Supple, trachea midline. No lymphadenopathy. EYES: No scleral icterus. No injection or drainage. CARDIOVASCULAR: Regular rate and rhythm without murmurs, gallops, or rubs. RESPIRATORY: Breath sounds equal bilaterally. No accessory muscle use. GASTROINTESTINAL: Abdomen soft, non-tender, nondistended. MUSCULOSKELETAL: No cyanosis, or edema. Chest tube present at left side SKIN: Warm and dry. Stage 1 sacral/buttock wound NEURO: No focal neurological deficitis. A/P Problem List: (1) Hypoxia ICD Code: R09.02 - Hypoxemia Status: Acute (2) Pneumothorax ICD Code: J93.9 - Pneumothorax, unspecified (3) UTI (urinary tract infection) ICD Code: N39.0 - Urinary tract infection, site not specified Status: Acute (4) Sepsis ICD Code: A41.9 - Sepsis, unspecified organism Status: Resolved Assessment and Plan Assessment and Plan 89-year-old male admitted secondary to sepsis, UTI, and pneumothorax. Sepsis Resolved Complex UTI (MRSA) Chronic suprapubic catheter Catheter exchange in the ER on 10/12/17 Continue vancomycin Urology following Bacteremia with MRSA Continue to monitor repeat blood culture Follow repeat blood cultures until negative Infectious disease following Congestive heart failure Baseline EF is 35% Continue baseline treatments Monitor closely for any fluid overload Pneumothorax Chest tube present Pulmonology following Follow oxygen saturations Maintain oxygen saturations greater than 90% Generalized weakness Generalized debility Physical therapy A-fib with RVR Resolved Continue metoprolol Continue Cardizem Follow on telemetry Diabetes mellitus type 2 Follow blood sugars Insulin sliding scale Diabetic diet Hypertension Continue metoprolol Continue Cardizem Lisinopril discontinued Follow blood pressures Dementia Mild Continue Aricept Hypothyroidism Continue Synthroid Follows in outpatient buttock/sacral wound (stage 1) Superficial skin irritation Wound care following Air mattress present DVT Prophylaxis Phillip Alvarez MD Oct 18, 2017 10:11
[2017-10-18] MEDS: VANCOMYCIN 1,000 MG/NS 250 ML IV SCH ×4 (12:43)
[2017-10-18] MEDS: DONEPEZIL HCL 5 MG TAB PO SCH (21:27)
[2017-10-18] MEDS ORDERED: PHARMACY ORDERED LAB ONE (23:45)
[2017-10-19] VITALS (24 sets, daily range): BP systolic 109–126; BP diastolic 57–74; PULSE 67–90; RESP 16–20; TEMP 97.4–98.6; O2SAT 95–96
[2017-10-19] MEDS: VANCOMYCIN 1,000 MG/NS 250 ML IV SCH ×6 (00:43→23:50)
[2017-10-19] MEDS: DILTIAZEM HCL 60 MG TAB PO SCH ×5 (00:43→23:50)
[2017-10-19 01:20] LABS: ALT (GPT) 10 U/L (12-78); ANION GAP 4 MEQ/L (5-15); AST (GOT) 10 U/L (15-37); BICARBONATE 35.4 MEQ/L (21.0-32.0); BLOOD UREA NITROGEN 17 MG/DL (7-18); CHLORIDE 101 MEQ/L (98-107); GLOMERULAR FILTRATION RATE 146 ML/MIN (>89); POTASSIUM 3.6 MEQ/L (3.5-5.1); SODIUM (NA) 140 MEQ/L (136-145)
[2017-10-19 01:23] LABS: ALKALINE PHOSPHATASE 62 U/L (45-117); TOTAL BILIRUBIN ADULT 0.2 MG/DL (0.2-1.0); VANCOMYCIN TROUGH 15.9 MCG/ML (5.0-10.0)
[2017-10-19] MEDS: LEVOTHYROXINE SODIUM 100 MCG TAB PO SCH (05:15)
[2017-10-19 06:31] LABS: AUTOMATED NEUTROPHIL # 9.1 TH/MM3 (1.8-7.7); BASOPHIL % 0.3 % (0.0-2.0); EOSINOPHIL # 0.5 TH/MM3 (0-0.4); EOSINOPHIL % 4.2 % (0.0-4.0); HEMATOCRIT 37.6 % (39.0-51.0); HEMO FLAGS DIFF FINAL; LYMPH % 16.4 % (9.0-44.0); MEAN CELL VOLUME 87.3 FL (80.0-100.0); MEAN CORPUSCULAR HEMOGLOBIN 28.7 PG (27.0-34.0); MEAN CORPUSCULAR HGB CONC 32.9 % (32.0-36.0); MONO % 5.9 % (0.0-8.0); NEUT % 73.2 % (16.0-70.0); PLATELET COUNT 403 TH/MM3 (150-450); RED CELL DISTRIBUTION WIDTH 18.3 % (11.6-17.2); WHITE BLOOD COUNT 12.5 TH/MM3 (4.0-11.0)
[2017-10-19] MEDS: RESP: ALBUTEROL 2.5 MG/IPRATROPIUM 0.5 MG NEB (SCH) NEB ×3 (08:00→21:03)
[2017-10-19] MEDS: INSULIN ASPART SUPPLEMENTAL SCALE SQ SCH ×4 (08:00→20:00)
[2017-10-19] MEDS: HYDROCORTISONE 10 MG TAB PO SCH (08:40)
[2017-10-19] MEDS: TAMSULOSIN HCL 0.4 MG CAP PO SCH (08:40)
[2017-10-19] MEDS: glyBURIDE 5 MG TAB PO SCH (08:40)
[2017-10-19] MEDS: METOPROLOL SUCCINATE 50 MG EXTENDED RELEASE TAB PO SCH (08:41)
[2017-10-19] MEDS: ASPIRIN 81 MG CHEW TAB CHEW SCH ×2 (08:41→20:00)
[2017-10-19] MEDS: LACTOBACILLUS ACIDOPHILUS TAB PO SCH ×2 (08:41→19:59)
[2017-10-19] MEDS: SODIUM CHLORIDE 0.9% FLUSH 10 ML FLUSH IV FLUSH SCH ×2 (08:41→21:54)
[2017-10-19] MEDS: POTASSIUM CHLORIDE 20 MEQ CONTROLLED RELEASE TAB PO SCH (08:41)
[2017-10-19] MEDS: ESCITALOPRAM OXALATE 10 MG TAB PO SCH (08:41)
--- NOTE | 2017-10-19 12:39 | HHI.PR ---
Subjective Remarks Repeat cultures of blood are negative at day 2 now. Chest tube remains. Patient has no new complaints. Objective Vital Signs Date Time Temp Pulse Resp B/P (MAP) Pulse Ox O2 Delivery O2 Flow Rate FiO2 10/19/17 12:00 90 10/19/17 12:00 98.2 78 16 126/74 (91) 95 10/19/17 11:00 76 10/19/17 10:00 74 10/19/17 09:00 77 10/19/17 08:00 97.4 74 16 122/57 (78) 95 10/19/17 08:00 74 10/19/17 07:00 Nasal Cannula 2.00 35 10/19/17 07:00 70 10/19/17 06:18 76 10/19/17 05:06 67 10/19/17 04:04 98.6 68 125/62 (83) 96 10/19/17 04:03 74 10/19/17 03:00 70 10/19/17 02:00 69 10/19/17 01:00 73 10/19/17 00:00 98.1 75 121/66 (84) 96 10/19/17 00:00 72 10/18/17 23:17 Nasal Cannula 2.00 10/18/17 23:00 68 10/18/17 22:00 75 10/18/17 21:00 79 10/18/17 20:00 98.8 83 118/66 (83) 94 10/18/17 20:00 83 10/18/17 19:21 95 Nasal Cannula 4.00 10/18/17 19:00 76 10/18/17 18:11 78 10/18/17 17:48 68 10/18/17 16:00 98.5 78 16 136/84 (101) 98 10/18/17 16:00 88 10/18/17 15:00 72 10/18/17 14:00 79 I/O 10/18/17 10/18/17 10/18/17 10/19/17 10/19/17 10/19/17 07:00 15:00 23:00 07:00 15:00 23:00 Intake Total 250 ml 500 ml 730 ml Output Total 1020 ml 780 ml 1325 ml Balance -770 ml -280 ml -595 ml Intake Oral 500 ml 480 ml IV Total 250 ml 250 ml Output Urine Total 1000 ml 780 ml 1100 ml Chest Tube Drainage Total 20 ml 225 ml Result Diagram: 10/19/17 0540 10/19/17 0045 Objective Remarks GENERAL: NAD, A&Ox3 HEAD: Normocephalic. NECK: Supple, trachea midline. No lymphadenopathy. EYES: No scleral icterus. No injection or drainage. CARDIOVASCULAR: Regular rate and rhythm without murmurs, gallops, or rubs. RESPIRATORY: Breath sounds equal bilaterally. No accessory muscle use. GASTROINTESTINAL: Abdomen soft, non-tender, nondistended. MUSCULOSKELETAL: No cyanosis, or edema. Chest tube present at left side SKIN: Warm and dry. Stage 1 sacral/buttock wound NEURO: No focal neurological deficitis. A/P Problem List: (1) Hypoxia ICD Code: R09.02 - Hypoxemia Status: Acute (2) Pneumothorax ICD Code: J93.9 - Pneumothorax, unspecified (3) UTI (urinary tract infection) ICD Code: N39.0 - Urinary tract infection, site not specified Status: Acute (4) Sepsis ICD Code: A41.9 - Sepsis, unspecified organism Status: Resolved Assessment and Plan Assessment and Plan 89-year-old male admitted secondary to sepsis, UTI, and pneumothorax. Labs reviewed. Labs shows stability. Continue monitoring labs given presence of chest tube. Chest tube remains. Sepsis Resolved Complex UTI (MRSA) Chronic suprapubic catheter Catheter exchange in the ER on 10/12/17 Continue vancomycin Urology following Bacteremia with MRSA Continue to monitor repeat blood culture Follow repeat blood cultures until negative Infectious disease following Congestive heart failure Baseline EF is 35% Continue baseline treatments Monitor closely for any fluid overload Pneumothorax Chest tube present Pulmonology following Follow oxygen saturations Maintain oxygen saturations greater than 90% Generalized weakness Generalized debility Physical therapy A-fib with RVR Resolved Continue metoprolol Continue Cardizem Follow on telemetry Diabetes mellitus type 2 Follow blood sugars Insulin sliding scale Diabetic diet Hypertension Continue metoprolol Continue Cardizem Lisinopril discontinued Follow blood pressures Dementia Mild Continue Aricept Hypothyroidism Continue Synthroid Follows in outpatient buttock/sacral wound (stage 1) Superficial skin irritation Wound care following Air mattress present DVT Prophylaxis Phillip Alvarez MD Oct 19, 2017 12:39
[2017-10-19] MEDS: DONEPEZIL HCL 5 MG TAB PO SCH (19:59)
[2017-10-20] VITALS (25 sets, daily range): BP systolic 102–144; BP diastolic 62–75; PULSE 65–92; RESP 16–20; TEMP 97.6–98.2; O2SAT 94–97
[2017-10-20] MEDS: DILTIAZEM HCL 60 MG TAB PO SCH ×3 (05:27→17:30)
[2017-10-20] MEDS: LEVOTHYROXINE SODIUM 100 MCG TAB PO SCH (05:27)
[2017-10-20] MEDS: RESP: ALBUTEROL 2.5 MG/IPRATROPIUM 0.5 MG NEB (SCH) NEB ×3 (07:21→20:36)
[2017-10-20 07:36] LABS: BASOPHIL % 0.3 % (0.0-2.0); EOSINOPHIL # 0.5 TH/MM3 (0-0.4); EOSINOPHIL % 3.8 % (0.0-4.0); HEMATOCRIT 40.1 % (39.0-51.0); HEMO FLAGS DIFF FINAL; LYMPH % 19.8 % (9.0-44.0); LYMPHOCYTE # 2.6 TH/MM3 (1.0-4.8); MEAN CELL VOLUME 87.5 FL (80.0-100.0); MEAN CORPUSCULAR HGB CONC 33.2 % (32.0-36.0); MONO % 6.3 % (0.0-8.0); NEUT % 69.8 % (16.0-70.0); PLATELET COUNT 448 TH/MM3 (150-450); RED BLOOD COUNT 4.58 MIL/MM3 (4.50-5.90); RED CELL DISTRIBUTION WIDTH 18.3 % (11.6-17.2); WHITE BLOOD COUNT 12.9 TH/MM3 (4.0-11.0)
[2017-10-20 08:07] LABS: ALT (GPT) 10 U/L (12-78); ANION GAP 5 MEQ/L (5-15); AST (GOT) 12 U/L (15-37); BICARBONATE 34.3 MEQ/L (21.0-32.0); BLOOD UREA NITROGEN 17 MG/DL (7-18); CHLORIDE 99 MEQ/L (98-107); GLOMERULAR FILTRATION RATE 177 ML/MIN (>89); POTASSIUM 3.4 MEQ/L (3.5-5.1); SODIUM (NA) 138 MEQ/L (136-145)
[2017-10-20 08:09] LABS: ALKALINE PHOSPHATASE 66 U/L (45-117); TOTAL BILIRUBIN ADULT 0.3 MG/DL (0.2-1.0)
[2017-10-20] MEDS ORDERED: POTASSIUM CHLORIDE 20 MEQ PWD PACKET PO ONE (08:30)
[2017-10-20] MEDS: INSULIN ASPART SUPPLEMENTAL SCALE SQ SCH ×4 (09:17→21:52)
[2017-10-20] MEDS: glyBURIDE 5 MG TAB PO SCH (09:17)
[2017-10-20] MEDS: TAMSULOSIN HCL 0.4 MG CAP PO SCH (09:18)
[2017-10-20] MEDS: LACTOBACILLUS ACIDOPHILUS TAB PO SCH ×2 (09:18→21:53)
[2017-10-20] MEDS: POTASSIUM CHLORIDE 20 MEQ CONTROLLED RELEASE TAB PO SCH (09:18)
[2017-10-20] MEDS: ESCITALOPRAM OXALATE 10 MG TAB PO SCH (09:18)
[2017-10-20] MEDS: ASPIRIN 81 MG CHEW TAB CHEW SCH ×2 (09:18→21:53)
[2017-10-20] MEDS: METOPROLOL SUCCINATE 50 MG EXTENDED RELEASE TAB PO SCH (09:18)
[2017-10-20] MEDS: SODIUM CHLORIDE 0.9% FLUSH 10 ML FLUSH IV FLUSH SCH ×2 (09:18→21:53)
[2017-10-20] MEDS: HYDROCORTISONE 10 MG TAB PO SCH (09:19)
--- NOTE | 2017-10-20 09:39 | RADRPT ---
EXAM DATE/TIME: 10/20/2017 08:55 [facility] COMPARISON: CHEST SINGLE AP, October 18, 2017, 3:36. INDICATIONS : Pneumothorax. MEDICAL HISTORY : Hypertension. Hiatal hernia. Diabetes mellitus type II. SURGICAL HISTORY : None. ENCOUNTER: Subsequent ACUITY: 4 - 6 days PAIN SCORE: Non-responsive. LOCATION: Bilateral chest FINDINGS: A single view of the chest demonstrates a persistent left pneumothorax. There are small apical and ba silar components. Left-sided chest tube remains in place. Right lung remains clear. Heart and mediastinal structures are stable. CONCLUSION: Persistent small left pneumothorax. Fabiano Peck MD on October 20, 2017 at 9:36 Board Certified Radiologist. This report was verified electronically.
--- NOTE | 2017-10-20 10:48 | HHI.IDPN ---
Subjective Subjective Remarks Patient is an 89-year-old male, who lives at home, brought into the hospital for further evaluation of increasing lethargy, and confusion. Patient lives at home alone, and usually the family arranges for [employer] to check up on him or stay with him during the day. He has had problem with multiple UTIs, and apparently his urine was tested and there was some evidence of UTI, and Cipro was called in. Patient however did not start Cipro because he was getting more confused so he was taken to the hospital for further evaluation and treatment. His been noted to be getting some hallucination. There's been no fever or chills or sweats. No noted respiratory problem. He has not had any nausea or vomiting or any diarrhea. Patient also since his been lethargic has not been ambulating as before. Patient has not been febrile. His WBC was elevated. His suprapubic catheter was changed in the emergency room. Apparently gets changed once a month. Patient could not tell me when the last time it was change but during his last hospitalization in August, he underwent cystoscopy, evacuation of hematoma and exchange of his suprapubic catheter done by Dr. Armstrong. 1 out of the 2 blood cultures growing MRSA. His urine culture has MRSA. He has had previous urine culture that had MRSA. Infectious disease consultation has been requested to evaluate the patient. Patient currently remains very confused. Notes reviewed Afebrile Has CT on L side CXR today with persiwtent PTX 2 BC on admission with MRSA Repeat BC negative CT A/P with R hydronephrosis, improving hydro on L WBC slightly lower Repeat UC with yeast Antibiotics Current Medications Vancomycin IV Medications (Trade) Dose Ordered Sig/Shanel Route Start Time Stop Time Status Last Admin (D50w (Vial) Inj) 50 ml UNSCH PRN IV PUSH 10/12/17 12:00 (Glucagon Inj) 1 mg UNSCH PRN OTHER 10/12/17 12:00 (NovoLOG SUPPLEMENTAL SCALE) 1 ACHS SLIDING SCALE SQ 10/12/17 12:00 10/20/17 09:17 Sodium Chloride 1,000 ml @ 70 mls/hr [id number] IV 10/12/17 11:52 Future Hold 10/17/17 06:16 (NS Flush) 2 ml UNSCH PRN IV FLUSH 10/12/17 12:00 (NS Flush) 2 ml BID IV FLUSH 10/12/17 21:00 10/20/17 09:18 (Tylenol) 650 mg Q4H PRN PO 10/12/17 12:00 (Zofran Inj) 4 mg Q6H PRN IVP 10/12/17 12:00 10/20/17 09:15 (Tylenol) 650 mg Q6H PRN PO 10/12/17 12:00 (Narcan Inj) 0.4 mg UNSCH PRN IV PUSH 10/12/17 12:00 (Milk Of Magnesia Liq) 30 ml Q12H PRN PO 10/12/17 12:00 (Lactinex) 1 tab Q12HR PO 10/12/17 21:00 10/20/17 09:18 Pharmacy Profile Note 0 ml @ 0 mls/hr UNSCH PRN OTHER 10/12/17 12:00 Vancomycin HCl 1000 mg/Sodium Chloride 250 ml @ 250 mls/hr Q12H IV 10/13/17 00:00 10/19/17 23:50 (Aspirin Chew) 81 mg BID CHEW 10/12/17 21:00 10/20/17 09:18 (Aricept) 5 mg HS PO 10/12/17 21:00 10/19/17 19:59 (Lexapro) 5 mg DAILY PO 10/13/17 09:00 10/20/17 09:18 (Diabeta) 5 mg DAILY@0800 PO 10/13/17 08:00 10/20/17 09:17 (Cortef) 2.5 mg DAILY PO 10/13/17 09:00 10/20/17 09:19 (Synthroid) 100 mcg DAILY@0600 PO 10/13/17 06:00 10/20/17 05:27 (Prinivil) 10 mg DAILY PO 10/13/17 09:00 Future Hold 10/13/17 08:43 (Toprol Xl) 50 mg DAILY PO 10/13/17 09:00 10/20/17 09:18 (KCl) 20 meq DAILY PO 10/13/17 09:00 10/20/17 09:18 (Silvadene 1% Cream (50 Gm)) 1 applic DAILY PRN TOPICAL 10/12/17 14:30 (Flomax) 0.4 mg DAILY PO 10/13/17 09:00 10/20/17 09:18 (Pill Splitter) 1 ea UNSCH PRN OTHER 10/12/17 14:45 (Vasotec Inj) 2.5 mg Q6H PRN IV PUSH 10/12/17 15:00 10/13/17 06:34 (Catapres) 0.1 mg Q6H PRN PO 10/12/17 15:00 10/12/17 17:00 Diltiazem HCl 125 mg/Sodium Chloride 125 ml @ 5 mls/hr TITRATE PRN IV 10/13/17 04:15 10/13/17 14:07 (Cardizem) 60 mg Q6HR PO 10/14/17 12:00 10/20/17 05:27 (Xanax) 0.125 mg Q6H PRN PO 10/16/17 14:45 (Duoneb Neb) 1 ampule TID NEB NEB 10/18/17 14:00 10/19/17 16:28 Lines PIV Past Medical History DM Hypertension Hyperlipidemia BPH obstructive uropathy s/p suprapubic catheter recurrent UTIs Hiatal hernia gastric ulcers hypothyroidism Past Surgical History Cataract extractions Tonsillectomy Cystoscopy with suprapubic catheter placement Gastric perforation repair Allergies: Coded Allergies: adhesive tape (Verified Allergy, Severe, Hives, 10/12/17) hydrocodone (Verified Allergy, Severe, HIVES, 10/12/17) Objective . Vital Signs Date Time Temp Pulse Resp B/P (MAP) Pulse Ox O2 Delivery O2 Flow Rate FiO2 10/20/17 07:21 Nasal Cannula 3.50 10/20/17 06:00 89 10/20/17 05:00 92 10/20/17 04:00 Nasal Cannula 3.00 10/20/17 04:00 97.8 87 18 136/66 (89) 96 10/20/17 04:00 87 10/20/17 03:00 82 10/20/17 02:00 90 10/20/17 01:00 84 10/20/17 00:00 98.2 79 18 144/75 (98) 94 10/20/17 00:00 79 10/20/17 00:00 Nasal Cannula 3.00 10/19/17 23:00 78 10/19/17 22:00 90 10/19/17 21:04 95 Nasal Cannula 4.00 10/19/17 21:00 78 10/19/17 20:00 Nasal Cannula 4.00 10/19/17 20:00 81 10/19/17 20:00 98.1 81 20 109/63 (78) 95 10/19/17 16:28 95 Nasal Cannula 4.00 10/19/17 16:00 98.4 72 16 113/66 (82) 95 10/19/17 16:00 78 10/19/17 15:00 70 10/19/17 14:00 70 10/19/17 13:00 78 10/19/17 12:00 90 10/19/17 12:00 98.2 78 16 126/74 (91) 95 10/19/17 11:00 76 . Laboratory Tests Test 10/19/17 05:40 10/20/17 06:40 White Blood Count 12.5 TH/MM3 12.9 TH/MM3 Red Blood Count 4.30 MIL/MM3 4.58 MIL/MM3 Hemoglobin 12.4 GM/DL 13.3 GM/DL Hematocrit 37.6 % 40.1 % Mean Corpuscular Volume 87.3 FL 87.5 FL Mean Corpuscular Hemoglobin 28.7 PG 29.0 PG Mean Corpuscular Hemoglobin Concent 32.9 % 33.2 % Red Cell Distribution Width 18.3 % 18.3 % Platelet Count 403 TH/MM3 448 TH/MM3 Mean Platelet Volume 7.6 FL 7.6 FL Neutrophils (%) (Auto) 73.2 % 69.8 % Lymphocytes (%) (Auto) 16.4 % 19.8 % Monocytes (%) (Auto) 5.9 % 6.3 % Eosinophils (%) (Auto) 4.2 % 3.8 % Basophils (%) (Auto) 0.3 % 0.3 % Neutrophils # (Auto) 9.1 TH/MM3 9.0 TH/MM3 Lymphocytes # (Auto) 2.0 TH/MM3 2.6 TH/MM3 Monocytes # (Auto) 0.7 TH/MM3 0.8 TH/MM3 Eosinophils # (Auto) 0.5 TH/MM3 0.5 TH/MM3 Basophils # (Auto) 0.0 TH/MM3 0.0 TH/MM3 CBC Comment DIFF FINAL DIFF FINAL Differential Comment Laboratory Tests Test 10/19/17 00:45 10/20/17 06:40 Blood Urea Nitrogen 17 MG/DL 17 MG/DL Creatinine 0.53 MG/DL 0.45 MG/DL Random Glucose 96 MG/DL 144 MG/DL Total Protein 6.1 GM/DL 6.3 GM/DL Albumin 1.9 GM/DL 2.0 GM/DL Calcium Level 8.1 MG/DL 8.3 MG/DL Alkaline Phosphatase 62 U/L 66 U/L Aspartate Amino Transf (AST/SGOT) 10 U/L 12 U/L Alanine Aminotransferase (ALT/SGPT) 10 U/L 10 U/L Total Bilirubin 0.2 MG/DL 0.3 MG/DL Sodium Level 140 MEQ/L 138 MEQ/L Potassium Level 3.6 MEQ/L 3.4 MEQ/L Chloride Level 101 MEQ/L 99 MEQ/L Carbon Dioxide Level 35.4 MEQ/L 34.3 MEQ/L Anion Gap 4 MEQ/L 5 MEQ/L Estimat Glomerular Filtration Rate 146 ML/MIN 177 ML/MIN Microbiology Date/Time Source Procedure Growth Status 10/17/17 10:50 Urine Suprapubic Urine Urine Culture - Preliminary Yeast Species Resulted Imaging Abdomen/Pelvis CT 10/15/17 0000 Signed Impressions: Service Date/Time: October 12:25 - CONCLUSION: 1. Large pneumothorax on the left. Chest tube likely needed. 2. Bibasilar consolidation and pleural effusions. 3. Cholelithiasis. 4. Right-sided hydronephrosis and hydroureter. Left-sided hydronephrosis has resolved. 5. Distal abdominal aortic aneurysm measuring 3.8 x 3.2 cm. 6. Large hernia abdominal wall containing multiple bowel loops. No signs of obstruction or strangulation 7. Massive enlargement of the prostate gland. 8. Hyperdense material within decompressed urinary bladder, can be thrombus. rKis Levin MD Head CT 10/14/17 0000 Signed Impressions: Service Date/Time: Saturday, October 14, 2017 05:16 - CONCLUSION: Stable noncontrast head CT. Emanuel Gandara MD Physical Exam GENERAL: awakens easily, not in respiratory distress. SKIN: Warm and dry. No generalized rash, no ecchymoses and no evidence of embolic lesions. HEAD: Atraumatic. Normocephalic. No temporal wasting, or tenderness. EYES: [place] conjunctiva. No petechia or hemorrhage. Pupils equal, round and reactive to light. No scleral icterus. No injection or drainage. EARS, NOSE AND THROAT: Nose without bleeding or purulent nasal discharge. No sinus tenderness. Mucous membranes pink and moist. No oral lesions noted. NECK: Trachea midline. Supple and not tender, no meningeal signs CARDIOVASCULAR: Regular rate and rhythm. No murmurs, rubs or gallops heard. Decreased BS bases, CT on L RESPIRATORY: Clear to auscultation. Breath sounds equal bilaterally. No rales , wheezing or rhonchi ABDOMEN: Soft, non-tender, nondistended. Bowel sounds present and normoactive. No guarding. No rebound. No organomegaly. SPC site looks ok. He has reducible hernia in mid abdomen EXTREMITIES: No clubbing, cyanosis, or edema.No joint effusion, has good ROM. No calf tenderness. Well perfused and warm. NEUROLOGICAL: Awake and alert. Cranial nerves grossly intact. Motor grossly within normal limits. PSYCHIATRIC: Normal affect, calm and cooperative. 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
--- NOTE | 2017-10-20 11:46 | HHI.PR ---
Subjective Remarks Blood cultures are now negative at 4 days. Yeast has grown in urine collected on 10/17/17. His tube remains. Objective Vital Signs Date Time Temp Pulse Resp B/P (MAP) Pulse Ox O2 Delivery O2 Flow Rate FiO2 10/20/17 09:00 97.6 83 20 142/75 (97) 97 10/20/17 07:21 Nasal Cannula 3.50 10/20/17 06:00 89 10/20/17 05:00 92 10/20/17 04:00 Nasal Cannula 3.00 10/20/17 04:00 97.8 87 18 136/66 (89) 96 10/20/17 04:00 87 10/20/17 03:00 82 10/20/17 02:00 90 10/20/17 01:00 84 10/20/17 00:00 98.2 79 18 144/75 (98) 94 10/20/17 00:00 79 10/20/17 00:00 Nasal Cannula 3.00 10/19/17 23:00 78 10/19/17 22:00 90 10/19/17 21:04 95 Nasal Cannula 4.00 10/19/17 21:00 78 10/19/17 20:00 Nasal Cannula 4.00 10/19/17 20:00 81 10/19/17 20:00 98.1 81 20 109/63 (78) 95 10/19/17 16:28 95 Nasal Cannula 4.00 10/19/17 16:00 98.4 72 16 113/66 (82) 95 10/19/17 16:00 78 10/19/17 15:00 70 10/19/17 14:00 70 10/19/17 13:00 78 10/19/17 12:00 90 10/19/17 12:00 98.2 78 16 126/74 (91) 95 I/O 10/19/17 10/19/17 10/19/17 10/20/17 10/20/17 10/20/17 07:00 15:00 23:00 07:00 15:00 23:00 Intake Total 730 ml 520 ml 730 ml Output Total 1325 ml 600 ml 770 ml Balance -595 ml -80 ml -40 ml Intake Oral 480 ml 520 ml 480 ml IV Total 250 ml 250 ml Output Urine Total 1100 ml 600 ml 750 ml Chest Tube Drainage Total 225 ml 20 ml # Bowel Movements 1 2 Result Diagram: 10/20/17 0640 10/20/17 0640 Objective Remarks GENERAL: NAD, A&Ox3 HEAD: Normocephalic. NECK: Supple, trachea midline. No lymphadenopathy. EYES: No scleral icterus. No injection or drainage. CARDIOVASCULAR: Regular rate and rhythm without murmurs, gallops, or rubs. RESPIRATORY: Breath sounds equal bilaterally. No accessory muscle use. GASTROINTESTINAL: Abdomen soft, non-tender, nondistended. MUSCULOSKELETAL: No cyanosis, or edema. Chest tube present at left side SKIN: Warm and dry. Stage 1 sacral/buttock wound NEURO: No focal neurological deficitis. A/P Problem List: (1) Hypoxia ICD Code: R09.02 - Hypoxemia Status: Acute (2) Pneumothorax ICD Code: J93.9 - Pneumothorax, unspecified (3) UTI (urinary tract infection) ICD Code: N39.0 - Urinary tract infection, site not specified Status: Acute (4) Sepsis ICD Code: A41.9 - Sepsis, unspecified organism Status: Resolved Assessment and Plan Assessment and Plan 89-year-old male admitted secondary to sepsis, UTI, and pneumothorax. Labs reviewed. No acute concerns on findings. Labs shows stability. Continue monitoring labs given presence of chest tube. Chest tube remains, pain control. Sepsis Resolved Complex UTI (MRSA/Yeast) Chronic suprapubic catheter Catheter exchange in the ER on 10/12/17 Continue vancomycin Continue Diflucan Urology following Bacteremia with MRSA Continue to monitor repeat blood culture Follow repeat blood cultures until negative Infectious disease following Congestive heart failure Baseline EF is 35% Continue baseline treatments Monitor closely for any fluid overload Pneumothorax Chest tube present Pulmonology following Follow oxygen saturations Maintain oxygen saturations greater than 90% Generalized weakness Generalized debility Physical therapy A-fib with RVR Resolved Continue metoprolol Continue Cardizem Follow on telemetry Diabetes mellitus type 2 Follow blood sugars Insulin sliding scale Diabetic diet Hypertension Continue metoprolol Continue Cardizem Lisinopril discontinued Follow blood pressures Dementia Mild Continue Aricept Hypothyroidism Continue Synthroid Follows in outpatient buttock/sacral wound (stage 1) Superficial skin irritation Wound care following Air mattress present DVT Prophylaxis Phillip Alvarez MD Oct 20, 2017 11:46
[2017-10-20] MEDS: FLUCONAZOLE 100 MG TAB PO SCH (11:53)
[2017-10-20] MEDS: VANCOMYCIN 1,000 MG/NS 250 ML IV SCH ×2 (11:54)
--- NOTE | 2017-10-20 17:04 | HHI.HCPN ---
Reason for visit a. To assist with evaluation and management of symptoms including: Decreased appetite, confusion, debility, dyspnea b. To assist medical decision maker(s) with: better understanding of current medical conditions; weighing benefits/burdens of medical treatment options; making medical treatment decisions. . Subjective/Interval History Follow up visit for symptom management and clarification of goals. Mr. Courtney was seen and assessed in room [address] Patient is alert to person and place;he remains intermittently confused. Encephalopathy is likely multifactorial; contributing factors include recent hospitalization, sepsis and underlying dementia. Patient is on Aricept at home. CT head on 10/14/2017 was stable. Pulmonology was consulted on 10/16/2017 due to worsening respiratory distress with persistent large left-sided pneumothorax requiring chest tube placement Follow-up chest x-ray today 10/20/2017 showing persistent small left pneumothorax. CT chest results pending. Suprapubic catheter was exchanged in the ED on 10/12/2017. Initial urine and blood culture growing MRSA. Follow-up blood culture is negative 4 days. NAYELY was negative for vegetation. Follow-up urine culture growing Shaila Glabrata. Infectious disease is following. Will continue IV vancomycin 14 days through 10/27/2017; started on Diflucan was ordered. Urology was consulted on this patient with a history of BPH obstruction and recurrent urinary tract infection status post suprapubic catheter placed 3-[address] abdomen/pelvis showing cholelithiasis, right-sided hydronephrosis and hydroureter. Left-sided hydronephrosis has resolved. Distal abdominal aortic aneurysm measuring 3.8 x 3.2 cm. Large hernia abdominal wall containing multiple bowel loops. No sign of obstruction or strangulation. Massive enlargement of the prostate gland. Hyperdense material within decompressed urinary bladder, may be thrombus. Per Dr. Armstrong, hydronephrosis appears to be moderate in view of normal creatinine, this could be related to recent infection and sepsis. Will continue to monitor patient, no need for stent at this time. Patient remains significantly deconditioned as evidenced by increasing weakness , weight loss, impaired skin integrity and inability to ambulate or complete ADLs independently. Wound care and physical therapy following. Family initially wanted to transition to hospice upon discharge but goals are no unclear. Daughter is considering SNF at discharge and then transition to hospice if the patient does not tolerate rehab. . Family/friend interactions Spoke with patient's daughter via telephone to update on patient's clinical condition and discuss current medical treatment plan. Family initially wanted to transition to hospice upon discharge but goals are no unclear. Daughter is considering SNF at discharge and then transition to hospice if the patient does not tolerate rehab. . Advance Directives Living Will: Copy in medical record Health Care Surrogate: Copy in medical record Advance Directive Specifics Date completed: 05/23/2015 . Health Care Surrogate(s): Francisca Veliz is the designated [facility] decision-maker. Francisca Monet has been designated as the alternate [facility] decision-maker. . Documented care wishes: The patient completed a standard living will on 05/23/15 stating he wishes that life prolonging procedures be withheld or withdrawn in the event that 2 physicians determine there is no reasonable medical probability of recovery from a terminal condition, an end-stage condition or if he is in a permanent vegetative state. At that time, he wishes to be allowed to peacefully and naturally with only the administration of medication or performance of procedures deemed necessary to provide him comfort. . Objective Vital Signs Date Time Temp Pulse Resp B/P (MAP) Pulse Ox O2 Delivery O2 Flow Rate FiO2 10/20/17 12:00 97.8 76 18 118/71 (87) 96 10/20/17 11:00 71 10/20/17 09:00 97.6 83 20 142/75 (97) 97 10/20/17 08:00 Nasal Cannula 4.00 10/20/17 07:21 Nasal Cannula 3.50 10/20/17 07:00 87 10/20/17 06:00 89 10/20/17 05:00 92 10/20/17 04:00 Nasal Cannula 3.00 10/20/17 04:00 97.8 87 18 136/66 (89) 96 10/20/17 04:00 87 10/20/17 03:00 82 10/20/17 02:00 90 10/20/17 01:00 84 10/20/17 00:00 98.2 79 18 144/75 (98) 94 10/20/17 00:00 79 10/20/17 00:00 Nasal Cannula 3.00 10/19/17 23:00 78 10/19/17 22:00 90 10/19/17 21:04 95 Nasal Cannula 4.00 10/19/17 21:00 78 10/19/17 20:00 Nasal Cannula 4.00 10/19/17 20:00 81 10/19/17 20:00 98.1 81 20 109/63 (78) 95 Intake & Output 10/20/17 10/20/17 07:00 19:00 Intake Total 730 ml Output Total 770 ml Balance -40 ml Intake Oral 480 ml IV Total 250 ml Output Urine Total 750 ml Chest Tube Drainage Total 20 ml # Bowel Movements 2 . Physical Exam CONSTITUTIONAL/GENERAL: This is a frail, elderly male patient in no acute distress. TUBES/LINES/DRAINS: Suprapubic catheter, PIV x 2, chest tube SKIN: Skin is thin and fragile. Wounds on left lateral ankle and sacrum. Skin temperature appropriate. Not diaphoretic. Ecchymosis on upper extremities bilaterally. HEAD: Atraumatic. Normocephalic. EYES: Pupils equal and round and reactive. No scleral icterus. No injection or drainage. Fundi not examined. ENT: Hearing grossly normal. Nose without bleeding or purulent drainage. NECK: Trachea midline. CARDIOVASCULAR: Regularly irregular. No Murmurs, gallops, or rubs. No JVD. Peripheral pulses symmetric. RESPIRATORY/CHEST: Symmetric, unlabored respirations. Clear to auscultation. Breath sounds diminished bilaterally. No wheezes, rales, or rhonchi. Left- sided chest tube in place. GASTROINTESTINAL: Abdomen soft, non-tender, nondistended. No guarding. Bowel sounds present. GENITOURINARY: Without palpable bladder distension. Suprapubic catheter in place MUSCULOSKELETAL: Extremities without clubbing, cyanosis, or edema. No mottling or clubbing. LYMPHATICS: No palpable cervical or supraclavicular adenopathy. NEUROLOGICAL: Remains intermittently confused. Answers some questions appropriately, follows directions. Moving all extremities 4. PSYCHIATRIC: No obvious anxiety/depression. Intermittent hallucinations reported . Diagnostic Tests Laboratory Laboratory Tests Test 10/18/17 06:52 10/19/17 00:45 10/19/17 05:40 10/20/17 06:40 White Blood Count 11.1 TH/MM3 (4.0-11.0) 12.5 TH/MM3 (4.0-11.0) 12.9 TH/MM3 (4.0-11.0) Red Blood Count 4.35 MIL/MM3 (4.50-5.90) 4.30 MIL/MM3 (4.50-5.90) 4.58 MIL/MM3 (4.50-5.90) Hemoglobin 12.5 GM/DL (13.0-17.0) 12.4 GM/DL (13.0-17.0) 13.3 GM/DL (13.0-17.0) Hematocrit 37.9 % (39.0-51.0) 37.6 % (39.0-51.0) 40.1 % (39.0-51.0) Mean Corpuscular Volume 87.1 FL (80.0-100.0) 87.3 FL (80.0-100.0) 87.5 FL (80.0-100.0) Mean Corpuscular Hemoglobin 28.8 PG (27.0-34.0) 28.7 PG (27.0-34.0) 29.0 PG (27.0-34.0) Mean Corpuscular Hemoglobin Concent 33.0 % (32.0-36.0) 32.9 % (32.0-36.0) 33.2 % (32.0-36.0) Red Cell Distribution Width 18.4 % (11.6-17.2) 18.3 % (11.6-17.2) 18.3 % (11.6-17.2) Platelet Count 411 TH/MM3 (150-450) 403 TH/MM3 (150-450) 448 TH/MM3 (150-450) Mean Platelet Volume 7.5 FL (7.0-11.0) 7.6 FL (7.0-11.0) 7.6 FL (7.0-11.0) Neutrophils (%) (Auto) 70.1 % (16.0-70.0) 73.2 % (16.0-70.0) 69.8 % (16.0-70.0) Lymphocytes (%) (Auto) 19.4 % (9.0-44.0) 16.4 % (9.0-44.0) 19.8 % (9.0-44.0) Monocytes (%) (Auto) 6.3 % (0.0-8.0) 5.9 % (0.0-8.0) 6.3 % (0.0-8.0) Eosinophils (%) (Auto) 3.9 % (0.0-4.0) 4.2 % (0.0-4.0) 3.8 % (0.0-4.0) Basophils (%) (Auto) 0.3 % (0.0-2.0) 0.3 % (0.0-2.0) 0.3 % (0.0-2.0) Neutrophils # (Auto) 7.8 TH/MM3 (1.8-7.7) 9.1 TH/MM3 (1.8-7.7) 9.0 TH/MM3 (1.8-7.7) Lymphocytes # (Auto) 2.1 TH/MM3 (1.0-4.8) 2.0 TH/MM3 (1.0-4.8) 2.6 TH/MM3 (1.0-4.8) Monocytes # (Auto) 0.7 TH/MM3 (0-0.9) 0.7 TH/MM3 (0-0.9) 0.8 TH/MM3 (0-0.9) Eosinophils # (Auto) 0.4 TH/MM3 (0-0.4) 0.5 TH/MM3 (0-0.4) 0.5 TH/MM3 (0-0.4) Basophils # (Auto) 0.0 TH/MM3 (0-0.2) 0.0 TH/MM3 (0-0.2) 0.0 TH/MM3 (0-0.2) CBC Comment DIFF FINAL DIFF FINAL DIFF FINAL Differential Comment Blood Urea Nitrogen 14 MG/DL (7-18) 17 MG/DL (7-18) 17 MG/DL (7-18) Creatinine 0.44 MG/DL (0.60-1.30) 0.53 MG/DL (0.60-1.30) 0.45 MG/DL (0.60-1.30) Random Glucose 147 MG/DL (74-106) 96 MG/DL (74-106) 144 MG/DL (74-106) Calcium Level 8.2 MG/DL (8.5-10.1) 8.1 MG/DL (8.5-10.1) 8.3 MG/DL (8.5-10.1) Sodium Level 139 MEQ/L (136-145) 140 MEQ/L (136-145) 138 MEQ/L (136-145) Potassium Level 3.3 MEQ/L (3.5-5.1) 3.6 MEQ/L (3.5-5.1) 3.4 MEQ/L (3.5-5.1) Chloride Level 100 MEQ/L (98-107) 101 MEQ/L (98-107) 99 MEQ/L (98-107) Carbon Dioxide Level 32.4 MEQ/L (21.0-32.0) 35.4 MEQ/L (21.0-32.0) 34.3 MEQ/L (21.0-32.0) Anion Gap 7 MEQ/L (5-15) 4 MEQ/L (5-15) 5 MEQ/L (5-15) Estimat Glomerular Filtration Rate 181 ML/MIN (>89) 146 ML/MIN (>89) 177 ML/MIN (>89) Total Protein 6.1 GM/DL (6.4-8.2) 6.3 GM/DL (6.4-8.2) Albumin 1.9 GM/DL (3.4-5.0) 2.0 GM/DL (3.4-5.0) Alkaline Phosphatase 62 U/L (45-117) 66 U/L (45-117) Aspartate Amino Transf (AST/SGOT) 10 U/L (15-37) 12 U/L (15-37) Alanine Aminotransferase (ALT/SGPT) 10 U/L (12-78) 10 U/L (12-78) Total Bilirubin 0.2 MG/DL (0.2-1.0) 0.3 MG/DL (0.2-1.0) Vancomycin Level Trough 15.9 MCG/ML (5.0-10.0) . Result Diagram: 10/20/1763910/20/17639 Imaging Last 72 hours Impressions Chest X-Ray 10/20/17 09 Signed Impressions: Service Date/Time: Friday, October 20, 2017 08:55 - CONCLUSION: Persistent small left pneumothorax. Fabiano Peck MD Chest X-Ray 10/18/17 06 Signed Impressions: Service Date/Time: Wednesday, October 18, 2017 03:36 - CONCLUSION: Left sided pneumothorax again seen but decreased from the previous study. Alton Boyle MD . Procedures 10/16/2017: Left-sided chest tube placement . Assessment and Plan Disease Oriented Problem List: (1) Dementia (2) Hypothyroidism (3) Sepsis (4) UTI (urinary tract infection) (5) Hypertension (6) Diabetes mellitus Symptom Scale: (1) Decrease in appetite (2) Debility (3) Confusion Pertinent Non-Medical Issues Psychosocial:Patient is originally from [place]. He lived in [place], [place] for many years. 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 His in 2004. The patient has 5 adult children. Two daughters live in [place]; Two sons live in [place] and one son who lives in [place] and is estranged from the family. The patient's daughter states "being cognitively sharp" is probably the most important thing to her father. Spiritual: Adventist pam Legal: HCS and Living will completed on 05/23/2015. Francisca Veliz is the designated [facility] decision-maker. Francisca Monet has been designated as the alternate [facility] decision-maker. The patient completed a standard living will on stating he wishes that life prolonging procedures be withheld or withdrawn in the event that 2 physicians determine there is no reasonable medical probability of recovery from a terminal condition, an end-stage condition or if he is in a permanent vegetative state. At that time, he wishes to be allowed to peacefully and naturally with only the administration of medication or performance of procedures deemed necessary to provide him comfort. Ethical issues impacting care: No known ethical issues impacting care at this time. . Important Contacts Lola Veliz, daughter: [phone] . Prognosis Mr. Courtney is an 89 year old man with a complex medical history who as significantly declined in the past 6 moths. He has had multiple hospitalizations for recurrent UTIs, sepsis, pneumonia, C. difficile and bladder outlet obstruction from BPH requiring a suprapubic catheter. The patient has become progressively more weak, lethargic and confused. He has had a reported weight loss of 50 pounds in the past year and is now too weak to ambulate. Given this patient's advanced age, significant loss in functional status and recurrent infections, his over all prognosis is poor and he is hospice appropriate should his medical treatment goals become comfort focused. . Code Status: No Code Plan * NO CODE- DNR/DNI * Community DNR completed and placed in chart. * Decision-making: Patient currently does not have insight or judgment related to his clinical conditions; it is unclear if the patient will regain capacity. Francisca Wallen is the designated [facility] decision-maker. Francisca Monet has been designated as the alternate [facility] decision-maker. * The patient completed a standard living will on 05/23/15 stating he wishes that life prolonging procedures be withheld or withdrawn in the event that 2 physicians determine there is no reasonable medical probability of recovery from a terminal condition, an end-stage condition or if he is in a permanent vegetative state. At that time, he wishes to be allowed to peacefully and naturally with only the administration of medication or performance of procedures deemed necessary to provide him comfort. * GOAL: Spoke with patient's daughter via telephone to update on patient's clinical condition and discuss current medical treatment plan. Family initially wanted to transition to hospice upon discharge but goals are no unclear. Daughter is considering SNF at discharge and then transition to hospice if the patient does not tolerate rehab. * Discussed patient with caseworker protective services, Rosy, and bedside nurse. * Symptom management-decreased appetite: Decreased appetite with associated weight loss reported. Patient's daughter reports a 50 pound weight loss in the past 12 months. BMI: 23.5; albumin 2.0 * Symptom management-confusion: Patient has some degree of dementia at baseline and is on Aricept at home. Confusion slowly improving. Encephalopathy is likely multifactorial; contributing factors include recent hospitalization, sepsis and underlying dementia. Patient is on Aricept at home. CT head on 10/14 was stable. Will continue to monitor patient closely to ensure safety and reorient patient as appropriate. * Symptom management-debility: Patient has become progressively more weak in recent months. He is no longer able to ambulate per his daughter's report. If goals remain aggressive, patient will need placement at SNF for rehabilitation at discharge. * Symptom management- dyspnea: Patient having increasing respiratory distress on 10/16/2017.; chest x-ray revealed persistent large left-sided pneumothorax requiring chest tube placement.Follow-up chest x-ray today showed persistent small left pneumothorax. CT chest pending. * Palliative care will continue to follow this patient throughout his hospitalization to establish trust, assist with symptom management and clarification of medical treatment goals. . Attestation To help prompt me to consider important information that might be impacting today's encounter and assessment, information from prior notes written by myself or my colleagues may have been "brought forward" into today's note. My signature on this note, however, is an attestation that I personally performed the exam, history, and/or decision-making noted today, and, unless otherwise indicated, the interactions with patient, family, and staff as well as the review of records all occurred today. I also attest that the listed assessment and stated plan reflect my best clinical judgment today based on the combination of historical information, prior notes, and today's exam/ interactions. When time spent is documented, it refers only to time spent today by the signer, or if indicated, combined time spent today by collaborating physician/nurse practitioner. . Nati Concepcion Oct 20, 2017 17:04
--- NOTE | 2017-10-20 17:22 | RADRPT ---
EXAM DATE/TIME: 10/20/2017 15:54 [facility] COMPARISON: No previous studies available for comparison. INDICATIONS : Pneumothorax, check tube position. RADIATION DOSE: 5.47 CTDIvol (mGy) MEDICAL HISTORY : Cardiovascular disease. Hypertension. Diabetes mellitus type 1. SURGICAL HISTORY : None. ENCOUNTER: Initial ACUITY: 1 day PAIN SCALE: 0/10 LOCATION: chest TECHNIQUE: Volumetric scanning of the chest was performed. Using automated exposure control and adjustment of t he mA and/or kV according to patient size, radiation dose was kept as low as reasonably achievable to obtain optimal diagnostic quality images. DICOM format image data is available electronically for r eview and comparison. Follow-up recommendations for detected pulmonary nodules are based at a minimum on nodule size and pa tient risk factors according to Fleischner Society Guidelines. FINDINGS: LUNGS: Large apical bleb in the right hemithorax with right basilar atelectatic changes. [place] loop thoracost stas tube is positioned in the fluid the base of the left hemithorax. Persistent left pneumothorax, ho wever. Atelectatic changes in the left base. PLEURAE: Small bilateral pleural effusions with concomitant atelectatic changes. MEDIASTINUM: The heart and great vessels demonstrate no acute abnormality. There is no mediastinal or hilar lymph adenopathy. Dense atherosclerotic calcification of the coronary arteries AXILLAE: Within normal limits. No lymphadenopathy. MUSCULOSKELETAL: Within normal limits for patient age. MISCELLANEOUS: Gallstones in the dependent portion of the gallbladder lumen. 5 cm cyst in the upper pole cortex of t he left kidney. CONCLUSION: 1. [place] loop thoracostomy tube in the left hemithorax is positioned posteriorly in the small left ple ural effusion. 2. Persistent left-sided pneumothorax. Would consider a surgical thoracostomy tube more anteriorly to treat the same. 3. Right apical bleb. Small bilateral pleural effusions with concomitant bibasilar atelectatic change s. 4. Cholelithiasis. Nash Armijo MD on October 20, 2017 at 17:15 Board Certified Radiologist. This report was verified electronically.
--- NOTE | 2017-10-20 19:20 | HHI.PR ---
Subjective Remarks Doing better. has a Left chest tube with a small left Pneumothorax. No fever. On antibiotics per ID. he is taking his diet well. Objective Vital Signs Date Time Temp Pulse Resp B/P (MAP) Pulse Ox O2 Delivery O2 Flow Rate FiO2 10/20/17 18:00 79 10/20/17 17:00 76 10/20/17 16:00 69 10/20/17 16:00 97.8 75 18 116/63 (80) 95 10/20/17 15:00 79 10/20/17 14:00 70 10/20/17 13:00 78 10/20/17 12:00 77 10/20/17 12:00 97.8 76 18 118/71 (87) 96 10/20/17 11:00 71 10/20/17 10:00 76 10/20/17 09:00 97.6 83 20 142/75 (97) 97 10/20/17 09:00 81 10/20/17 08:00 Nasal Cannula 4.00 10/20/17 08:00 79 10/20/17 07:21 Nasal Cannula 3.50 10/20/17 07:00 87 10/20/17 06:00 89 10/20/17 05:00 92 10/20/17 04:00 Nasal Cannula 3.00 10/20/17 04:00 97.8 87 18 136/66 (89) 96 10/20/17 04:00 87 10/20/17 03:00 82 10/20/17 02:00 90 10/20/17 01:00 84 10/20/17 00:00 98.2 79 18 144/75 (98) 94 10/20/17 00:00 79 10/20/17 00:00 Nasal Cannula 3.00 10/19/17 23:00 78 10/19/17 22:00 90 10/19/17 21:04 95 Nasal Cannula 4.00 10/19/17 21:00 78 10/19/17 20:00 Nasal Cannula 4.00 10/19/17 20:00 81 10/19/17 20:00 98.1 81 20 109/63 (78) 95 I/O 10/19/17 10/19/17 10/19/17 10/20/17 10/20/17 10/20/17 07:00 15:00 23:00 07:00 15:00 23:00 Intake Total 730 ml 520 ml 730 ml 840 ml Output Total 1325 ml 600 ml 770 ml 770 ml Balance -595 ml -80 ml -40 ml 70 ml Intake Oral 480 ml 520 ml 480 ml 840 ml IV Total 250 ml 250 ml Output Urine Total 1100 ml 600 ml 750 ml 700 ml Chest Tube Drainage Total 225 ml 20 ml 70 ml # Bowel Movements 1 2 2 Result Diagram: 10/20/1763910/20/17639 Objective Remarks GENERAL: This is a thinly built elderly man, in bed pale and not dyspneic. HEENT: Head normocephalic. Pupils are reactive. Tongue is dry. Throat mildly injected. NECK: Supple. No venous distension. No thyromegaly. CHEST: Equal movements with distant breath sounds. Occasional Bi basilar crackles heard. Wheezes are heard over the left lung field. HEART: The heart sounds are irregular. S1 and S2. No murmur. No S3. ABDOMEN: Soft, protuberant. No masses, no organomegaly or tenderness. Bowel sounds are active. EXTREMITIES: Mild varicosities and no edema. Peripheral pulses are diminished. Reflexes are 1+. There is muscle wasting of the extremities. The patient does move his extremities well. Babinski negative. SKIN: No lesions observed. Assessment and Plan Assessment and Plan IMPRESSION 1. Large left pneumothorax with compressive atelectasis in left lung. 2. UTI and sepsis. 3. Basilar pneumonia. 4. History of hypertension. 5. Diabetes mellitus. 6. Altered mental status. Plan : 1. Chest tube to Drainage and -20 CM suction. 2. C XR in am. 3. Duoneb nebs qid. 4. Cont Antibiotics per ID. 5. IS at bedside qid, 6. CBC BMP in am. Blaze Russ MD Oct 20, 2017 19:20
[2017-10-20] MEDS: DONEPEZIL HCL 5 MG TAB PO SCH (21:53)
[2017-10-21] VITALS (30 sets, daily range): BP systolic 102–131; BP diastolic 50–65; PULSE 60–87; RESP 16–18; TEMP 97–98.2; O2SAT 92–95
[2017-10-21] MEDS: DILTIAZEM HCL 60 MG TAB PO SCH ×4 (00:20→17:03)
[2017-10-21] MEDS: VANCOMYCIN 1,000 MG/NS 250 ML IV SCH ×4 (00:21→12:37)
[2017-10-21] MEDS: LEVOTHYROXINE SODIUM 100 MCG TAB PO SCH (05:43)
[2017-10-21 06:33] LABS: AUTOMATED NEUTROPHIL # 8.8 TH/MM3 (1.8-7.7); BASOPHIL # 0.1 TH/MM3 (0-0.2); BASOPHIL % 0.5 % (0.0-2.0); EOSINOPHIL # 0.4 TH/MM3 (0-0.4); EOSINOPHIL % 3.3 % (0.0-4.0); HEMATOCRIT 36.6 % (39.0-51.0); HEMO FLAGS DIFF FINAL; LYMPH % 18.8 % (9.0-44.0); LYMPHOCYTE # 2.3 TH/MM3 (1.0-4.8); MEAN CELL VOLUME 86.5 FL (80.0-100.0); MEAN CORPUSCULAR HEMOGLOBIN 28.8 PG (27.0-34.0); MEAN CORPUSCULAR HGB CONC 33.3 % (32.0-36.0); MONO % 6.2 % (0.0-8.0); NEUT % 71.2 % (16.0-70.0); PLATELET COUNT 455 TH/MM3 (150-450); RED BLOOD COUNT 4.23 MIL/MM3 (4.50-5.90); RED CELL DISTRIBUTION WIDTH 18.4 % (11.6-17.2); WHITE BLOOD COUNT 12.3 TH/MM3 (4.0-11.0)
[2017-10-21 07:06] LABS: ALKALINE PHOSPHATASE 73 U/L (45-117); ALT (GPT) 10 U/L (12-78); ANION GAP 5 MEQ/L (5-15); AST (GOT) 12 U/L (15-37); BICARBONATE 31.9 MEQ/L (21.0-32.0); BLOOD UREA NITROGEN 27 MG/DL (7-18); CHLORIDE 100 MEQ/L (98-107); GLOMERULAR FILTRATION RATE 129 ML/MIN (>89); POTASSIUM 4.4 MEQ/L (3.5-5.1); SODIUM (NA) 137 MEQ/L (136-145); TOTAL BILIRUBIN ADULT 0.2 MG/DL (0.2-1.0)
[2017-10-21] MEDS: RESP: ALBUTEROL 2.5 MG/IPRATROPIUM 0.5 MG NEB (SCH) NEB ×3 (07:39→20:00)
[2017-10-21] MEDS: INSULIN ASPART SUPPLEMENTAL SCALE SQ SCH ×4 (08:46→21:00)
[2017-10-21] MEDS: glyBURIDE 5 MG TAB PO SCH (08:48)
[2017-10-21] MEDS: ESCITALOPRAM OXALATE 10 MG TAB PO SCH (09:50)
[2017-10-21] MEDS: SODIUM CHLORIDE 0.9% FLUSH 10 ML FLUSH IV FLUSH SCH ×2 (09:50→20:09)
[2017-10-21] MEDS: ASPIRIN 81 MG CHEW TAB CHEW SCH ×2 (09:50→20:09)
[2017-10-21] MEDS: TAMSULOSIN HCL 0.4 MG CAP PO SCH (09:50)
[2017-10-21] MEDS: HYDROCORTISONE 10 MG TAB PO SCH (09:51)
[2017-10-21] MEDS: FLUCONAZOLE 100 MG TAB PO SCH (09:51)
[2017-10-21] MEDS: POTASSIUM CHLORIDE 20 MEQ CONTROLLED RELEASE TAB PO SCH (09:51)
[2017-10-21] MEDS: LACTOBACILLUS ACIDOPHILUS TAB PO SCH ×2 (09:52→20:09)
[2017-10-21] MEDS: METOPROLOL SUCCINATE 50 MG EXTENDED RELEASE TAB PO SCH (09:52)
--- NOTE | 2017-10-21 10:25 | HHI.IDPN ---
Subjective Subjective Remarks Patient is an 89-year-old male, who lives at home, brought into the hospital for further evaluation of increasing lethargy, and confusion. Patient lives at home alone, and usually the family arranges for [employer] to check up on him or stay with him during the day. He has had problem with multiple UTIs, and apparently his urine was tested and there was some evidence of UTI, and Cipro was called in. Patient however did not start Cipro because he was getting more confused so he was taken to the hospital for further evaluation and treatment. His been noted to be getting some hallucination. There's been no fever or chills or sweats. No noted respiratory problem. He has not had any nausea or vomiting or any diarrhea. Patient also since his been lethargic has not been ambulating as before. Patient has not been febrile. His WBC was elevated. His suprapubic catheter was changed in the emergency room. Apparently gets changed once a month. Patient could not tell me when the last time it was change but during his last hospitalization in August, he underwent cystoscopy, evacuation of hematoma and exchange of his suprapubic catheter done by Dr. Armstrong. 1 out of the 2 blood cultures growing MRSA. His urine culture has MRSA. He has had previous urine culture that had MRSA. Infectious disease consultation has been requested to evaluate the patient. Patient currently remains very confused. Notes reviewed Afebrile Has CT on L side Repeat CT - no change in L PTX CXR today with persistent PTX 2 BC on admission with MRSA Repeat BC negative CT A/P with R hydronephrosis, improving hydro on L WBC slightly lower Repeat UC with yeast Antibiotics Current Medications Vancomycin IV Diflucan Medications (Trade) Dose Ordered Sig/Shanel Route Start Time Stop Time Status Last Admin (D50w (Vial) Inj) 50 ml UNSCH PRN IV PUSH 10/12/17 12:00 (Glucagon Inj) 1 mg UNSCH PRN OTHER 10/12/17 12:00 (NovoLOG SUPPLEMENTAL SCALE) 1 ACHS SLIDING SCALE SQ 10/12/17 12:00 10/21/17 08:46 Sodium Chloride 1,000 ml @ 70 mls/hr [id number] IV 10/12/17 11:52 Future Hold 10/17/17 06:16 (NS Flush) 2 ml UNSCH PRN IV FLUSH 10/12/17 12:00 (NS Flush) 2 ml BID IV FLUSH 10/12/17 21:00 10/21/17 09:50 (Tylenol) 650 mg Q4H PRN PO 10/12/17 12:00 (Zofran Inj) 4 mg Q6H PRN IVP 10/12/17 12:00 10/20/17 09:15 (Tylenol) 650 mg Q6H PRN PO 10/12/17 12:00 (Narcan Inj) 0.4 mg UNSCH PRN IV PUSH 10/12/17 12:00 (Milk Of Magnesia Liq) 30 ml Q12H PRN PO 10/12/17 12:00 (Lactinex) 1 tab Q12HR PO 10/12/17 21:00 10/21/17 09:52 Pharmacy Profile Note 0 ml @ 0 mls/hr UNSCH PRN OTHER 10/12/17 12:00 Vancomycin HCl 1000 mg/Sodium Chloride 250 ml @ 250 mls/hr Q12H IV 10/13/17 00:00 10/21/17 00:21 (Aspirin Chew) 81 mg BID CHEW 10/12/17 21:00 10/21/17 09:50 (Aricept) 5 mg HS PO 10/12/17 21:00 10/20/17 21:53 (Lexapro) 5 mg DAILY PO 10/13/17 09:00 10/21/17 09:50 (Diabeta) 5 mg DAILY@0800 PO 10/13/17 08:00 10/21/17 08:48 (Cortef) 2.5 mg DAILY PO 10/13/17 09:00 10/21/17 09:51 (Synthroid) 100 mcg DAILY@0600 PO 10/13/17 06:00 10/21/17 05:43 (Prinivil) 10 mg DAILY PO 10/13/17 09:00 Future Hold 10/13/17 08:43 (Toprol Xl) 50 mg DAILY PO 10/13/17 09:00 10/21/17 09:52 (KCl) 20 meq DAILY PO 10/13/17 09:00 10/21/17 09:51 (Silvadene 1% Cream (50 Gm)) 1 applic DAILY PRN TOPICAL 10/12/17 14:30 (Flomax) 0.4 mg DAILY PO 10/13/17 09:00 10/21/17 09:50 (Pill Splitter) 1 ea UNSCH PRN OTHER 10/12/17 14:45 (Vasotec Inj) 2.5 mg Q6H PRN IV PUSH 10/12/17 15:00 10/13/17 06:34 (Catapres) 0.1 mg Q6H PRN PO 10/12/17 15:00 10/12/17 17:00 Diltiazem HCl 125 mg/Sodium Chloride 125 ml @ 5 mls/hr TITRATE PRN IV 10/13/17 04:15 10/13/17 14:07 (Cardizem) 60 mg Q6HR PO 10/14/17 12:00 10/21/17 05:43 (Xanax) 0.125 mg Q6H PRN PO 10/16/17 14:45 (Duoneb Neb) 1 ampule TID NEB NEB 10/18/17 14:00 10/21/17 07:39 (Diflucan) 100 mg DAILY PO 10/20/17 11:00 10/21/17 09:51 Lines PIV Past Medical History DM Hypertension Hyperlipidemia BPH obstructive uropathy s/p suprapubic catheter recurrent UTIs Hiatal hernia gastric ulcers hypothyroidism Past Surgical History Cataract extractions Tonsillectomy Cystoscopy with suprapubic catheter placement Gastric perforation repair Allergies: Coded Allergies: adhesive tape (Verified Allergy, Severe, Hives, 10/12/17) hydrocodone (Verified Allergy, Severe, HIVES, 10/12/17) Objective . Vital Signs Date Time Temp Pulse Resp B/P (MAP) Pulse Ox O2 Delivery O2 Flow Rate FiO2 10/21/17 07:43 93 Nasal Cannula 3.00 10/21/17 06:00 67 10/21/17 05:00 66 10/21/17 04:00 97.0 69 16 131/60 (83) 93 10/21/17 04:00 60 10/21/17 03:00 70 10/21/17 02:00 67 10/21/17 01:00 77 10/21/17 00:00 97.5 80 16 105/52 (69) 93 10/21/17 00:00 70 10/20/17 23:00 69 10/20/17 22:00 74 10/20/17 21:00 81 10/20/17 20:36 94 Nasal Cannula 3.00 10/20/17 20:00 Nasal Cannula 4.00 10/20/17 20:00 65 10/20/17 20:00 97.6 74 16 102/62 (75) 94 10/20/17 19:00 74 10/20/17 18:00 79 10/20/17 17:00 76 10/20/17 16:00 69 10/20/17 16:00 97.8 75 18 116/63 (80) 95 10/20/17 15:00 79 10/20/17 14:00 70 10/20/17 13:00 78 10/20/17 12:00 77 10/20/17 12:00 97.8 76 18 118/71 (87) 96 10/20/17 11:00 71 . Laboratory Tests Test 10/20/17 06:40 10/21/17 06:06 White Blood Count 12.9 TH/MM3 12.3 TH/MM3 Red Blood Count 4.58 MIL/MM3 4.23 MIL/MM3 Hemoglobin 13.3 GM/DL 12.2 GM/DL Hematocrit 40.1 % 36.6 % Mean Corpuscular Volume 87.5 FL 86.5 FL Mean Corpuscular Hemoglobin 29.0 PG 28.8 PG Mean Corpuscular Hemoglobin Concent 33.2 % 33.3 % Red Cell Distribution Width 18.3 % 18.4 % Platelet Count 448 TH/MM3 455 TH/MM3 Mean Platelet Volume 7.6 FL 7.4 FL Neutrophils (%) (Auto) 69.8 % 71.2 % Lymphocytes (%) (Auto) 19.8 % 18.8 % Monocytes (%) (Auto) 6.3 % 6.2 % Eosinophils (%) (Auto) 3.8 % 3.3 % Basophils (%) (Auto) 0.3 % 0.5 % Neutrophils # (Auto) 9.0 TH/MM3 8.8 TH/MM3 Lymphocytes # (Auto) 2.6 TH/MM3 2.3 TH/MM3 Monocytes # (Auto) 0.8 TH/MM3 0.8 TH/MM3 Eosinophils # (Auto) 0.5 TH/MM3 0.4 TH/MM3 Basophils # (Auto) 0.0 TH/MM3 0.1 TH/MM3 CBC Comment DIFF FINAL DIFF FINAL Differential Comment Laboratory Tests Test 10/20/17 06:40 10/21/17 06:06 Blood Urea Nitrogen 17 MG/DL 27 MG/DL Creatinine 0.45 MG/DL 0.59 MG/DL Random Glucose 144 MG/DL 210 MG/DL Total Protein 6.3 GM/DL 6.0 GM/DL Albumin 2.0 GM/DL 1.8 GM/DL Calcium Level 8.3 MG/DL 8.2 MG/DL Alkaline Phosphatase 66 U/L 73 U/L Aspartate Amino Transf (AST/SGOT) 12 U/L 12 U/L Alanine Aminotransferase (ALT/SGPT) 10 U/L 10 U/L Total Bilirubin 0.3 MG/DL 0.2 MG/DL Sodium Level 138 MEQ/L 137 MEQ/L Potassium Level 3.4 MEQ/L 4.4 MEQ/L Chloride Level 99 MEQ/L 100 MEQ/L Carbon Dioxide Level 34.3 MEQ/L 31.9 MEQ/L Anion Gap 5 MEQ/L 5 MEQ/L Estimat Glomerular Filtration Rate 177 ML/MIN 129 ML/MIN Imaging Abdomen/Pelvis CT 10/15/17 0000 Signed Impressions: Service Date/Time: October 12:25 - CONCLUSION: 1. Large pneumothorax on the left. Chest tube likely needed. 2. Bibasilar consolidation and pleural effusions. 3. Cholelithiasis. 4. Right-sided hydronephrosis and hydroureter. Left-sided hydronephrosis has resolved. 5. Distal abdominal aortic aneurysm measuring 3.8 x 3.2 cm. 6. Large hernia abdominal wall containing multiple bowel loops. No signs of obstruction or strangulation 7. Massive enlargement of the prostate gland. 8. Hyperdense material within decompressed urinary bladder, can be thrombus. Kris Levin MD Head CT 10/14/17 0000 Signed Impressions: Service Date/Time: Saturday, October 14, 2017 05:16 - CONCLUSION: Stable noncontrast head CT. Emanuel Gandara MD Physical Exam GENERAL: awakens easily, NAD SKIN: Warm and dry. No generalized rash HEAD: Atraumatic. Normocephalic. No temporal wasting, or tenderness. EYES: [place] conjunctiva. No petechia or hemorrhage. Pupils equal, round and reactive to light. No scleral icterus. No injection or drainage. EARS, NOSE AND THROAT: Nose without bleeding or purulent nasal discharge. No sinus tenderness. Mucous membranes pink and moist. No oral lesions noted. NECK: Trachea midline. Supple and not tender, no meningeal signs CARDIOVASCULAR: Regular rate and rhythm. No murmurs, rubs or gallops heard. Decreased BS bases, CT on L RESPIRATORY: Clear to auscultation. Breath sounds equal bilaterally. No rales , wheezing or rhonchi ABDOMEN: Soft, non-tender, nondistended. Bowel sounds present and normoactive. No guarding. No rebound. No organomegaly. SPC site looks ok. He has reducible hernia in mid abdomen EXTREMITIES: No clubbing, cyanosis, or edema.No joint effusion, has good ROM. No calf tenderness. Well perfused and warm. NEUROLOGICAL: Awake and alert. Cranial nerves grossly intact. Motor grossly within normal limits. PSYCHIATRIC: Normal affect, calm and cooperative. 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
--- NOTE | 2017-10-21 13:01 | HHI.PR ---
Subjective Remarks Doing better. has a Left chest tube still with a small left Pneumothorax.Drained only 70 CC today No fever. On antibiotics per ID. he is taking his diet well. Objective Vital Signs Date Time Temp Pulse Resp B/P (MAP) Pulse Ox O2 Delivery O2 Flow Rate FiO2 10/21/17 12:09 98.0 74 18 102/50 (67) 94 10/21/17 08:45 94 Nasal Cannula 3.00 10/21/17 08:45 97.9 68 17 117/65 (82) 94 10/21/17 07:43 93 Nasal Cannula 3.00 10/21/17 06:00 67 10/21/17 05:00 66 10/21/17 04:00 97.0 69 16 131/60 (83) 93 10/21/17 04:00 60 10/21/17 03:00 70 10/21/17 02:00 67 10/21/17 01:00 77 10/21/17 00:00 97.5 80 16 105/52 (69) 93 10/21/17 00:00 70 10/20/17 23:00 69 10/20/17 22:00 74 10/20/17 21:00 81 10/20/17 20:36 94 Nasal Cannula 3.00 10/20/17 20:00 Nasal Cannula 4.00 10/20/17 20:00 65 10/20/17 20:00 97.6 74 16 102/62 (75) 94 10/20/17 19:00 74 10/20/17 18:00 79 10/20/17 17:00 76 10/20/17 16:00 69 10/20/17 16:00 97.8 75 18 116/63 (80) 95 10/20/17 15:00 79 10/20/17 14:00 70 10/20/17 13:00 78 I/O 10/20/17 10/20/17 10/20/17 10/21/17 10/21/17 10/21/17 07:00 15:00 23:00 07:00 15:00 23:00 Intake Total 730 ml 840 ml 690 ml Output Total 770 ml 770 ml 1000 ml Balance -40 ml 70 ml -310 ml Intake Oral 480 ml 840 ml 440 ml IV Total 250 ml 250 ml Output Urine Total 750 ml 700 ml 1000 ml Chest Tube Drainage Total 20 ml 70 ml # Bowel Movements 2 2 1 Result Diagram: 10/21/1760510/21/17605 Objective Remarks GENERAL: This is a thinly built elderly man, in bed pale and not dyspneic. HEENT: Head normocephalic. Pupils are reactive. Tongue is dry. Throat clear. NECK: Supple. No venous distension. No thyromegaly. CHEST: Equal movements with distant breath sounds. Occasional Bi basilar crackles heard. HEART: The heart sounds are irregular. S1 and S2. No murmur. No S3. ABDOMEN: Soft, protuberant. No masses, no organomegaly or tenderness. Bowel sounds are active. EXTREMITIES: No edema. Peripheral pulses are diminished. Reflexes are 1+. There is muscle wasting of the extremities. The patient does move his extremities well. Babinski negative. SKIN: No lesions observed. Assessment and Plan Assessment and Plan IMPRESSION 1. Large left pneumothorax with compressive atelectasis in left lung. 2. UTI and sepsis. 3. Basilar pneumonia. 4. History of hypertension. 5. Diabetes mellitus. 6. Altered mental status. Plan : 1. Chest tube to Drainage and -20 CM suction. 2. C XR in am. 3. Cont Duoneb nebs qid. 4. Cont Antibiotics per ID. 5. IS at bedside qid, 6. Will D/C Chest tube if Pneumo Resolves. Blaze Russ MD Oct 21, 2017 13:01
--- NOTE | 2017-10-21 14:13 | HHI.HCPN ---
Reason for visit a. To assist with evaluation and management of symptoms including: Decreased appetite, confusion, debility, dyspnea b. To assist medical decision maker(s) with: better understanding of current medical conditions; weighing benefits/burdens of medical treatment options; making medical treatment decisions. . Subjective/Interval History Follow up visit for symptom management and clarification of goals. Mr. Courtney was seen and assessed in room [address] Patient is alert to person and place but remains intermittently confused. Encephalopathy is likely multifactorial; contributing factors include recent hospitalization, sepsis and underlying dementia. Patient is on Aricept at home. CT head on 10/14/2017 was stable. Pulmonology was consulted on 10/16/2017 due to worsening respiratory distress with persistent large left-sided pneumothorax requiring chest tube placement Follow-up chest x-ray today 10/20/2017 showing persistent small left pneumothorax. CT chest results pending. Initial urine and blood culture growing MRSA. Follow-up blood culture is negative 4 days. NAYELY was negative for vegetation. Follow-up urine culture growing Shaila Glabrata. Infectious disease is following. Will continue IV vancomycin 14 days through 10/27/2017; started on Diflucan was ordered. Urology was consulted on this patient with a history of BPH obstruction and recurrent urinary tract infection status post suprapubic catheter placed 3-[address] abdomen/pelvis showing cholelithiasis, right-sided hydronephrosis and hydroureter. Left-sided hydronephrosis has resolved. Distal abdominal aortic aneurysm measuring 3.8 x 3.2 cm. Large hernia abdominal wall containing multiple bowel loops. No sign of obstruction or strangulation. Massive enlargement of the prostate gland. Hyperdense material within decompressed urinary bladder, may be thrombus. Per Dr. Armstrong, hydronephrosis appears to be moderate in view of normal creatinine, this could be related to recent infection and sepsis. Will continue to monitor patient, no need for stent at this time. Patient remains significantly deconditioned as evidenced by increasing weakness , weight loss, impaired skin integrity and inability to ambulate or complete ADLs independently. Wound care and physical therapy following. Family initially wanted to transition to hospice upon discharge but goals are no unclear. Daughter is considering SNF at discharge and then transition to hospice if the patient does not tolerate rehab. . Advance Directives Living Will: Copy in medical record Health Care Surrogate: Copy in medical record Advance Directive Specifics Date completed: 05/23/2015 . Health Care Surrogate(s): Francisca Veliz is the designated [facility] decision-maker. Francisca Chiki has been designated as the alternate [facility] decision-maker. . Documented care wishes: The patient completed a standard living will on 05/23/15 stating he wishes that life prolonging procedures be withheld or withdrawn in the event that 2 physicians determine there is no reasonable medical probability of recovery from a terminal condition, an end-stage condition or if he is in a permanent vegetative state. At that time, he wishes to be allowed to peacefully and naturally with only the administration of medication or performance of procedures deemed necessary to provide him comfort. . Objective Vital Signs Date Time Temp Pulse Resp B/P (MAP) Pulse Ox O2 Delivery O2 Flow Rate FiO2 10/21/17 12:09 98.0 74 18 102/50 (67) 94 10/21/17 08:45 94 Nasal Cannula 3.00 10/21/17 08:45 97.9 68 17 117/65 (82) 94 10/21/17 07:43 93 Nasal Cannula 3.00 10/21/17 06:00 67 10/21/17 05:00 66 10/21/17 04:00 97.0 69 16 131/60 (83) 93 10/21/17 04:00 60 10/21/17 03:00 70 10/21/17 02:00 67 10/21/17 01:00 77 10/21/17 00:00 97.5 80 16 105/52 (69) 93 10/21/17 00:00 70 10/20/17 23:00 69 10/20/17 22:00 74 10/20/17 21:00 81 10/20/17 20:36 94 Nasal Cannula 3.00 10/20/17 20:00 Nasal Cannula 4.00 10/20/17 20:00 65 10/20/17 20:00 97.6 74 16 102/62 (75) 94 10/20/17 19:00 74 10/20/17 18:00 79 10/20/17 17:00 76 10/20/17 16:00 69 10/20/17 16:00 97.8 75 18 116/63 (80) 95 10/20/17 15:00 79 10/20/17 14:00 70 Intake & Output 10/21/17 10/21/17 07:00 19:00 Intake Total 690 ml Output Total 1000 ml Balance -310 ml Intake Oral 440 ml IV Total 250 ml Output Urine Total 1000 ml # Bowel Movements 1 Physical Exam CONSTITUTIONAL/GENERAL: This is a frail, elderly male patient in no acute distress. TUBES/LINES/DRAINS: Suprapubic catheter, PIV x 2, chest tube SKIN: Skin is thin and fragile. Wounds on left lateral ankle and sacrum. Skin temperature appropriate. Not diaphoretic. Ecchymosis on upper extremities bilaterally. HEAD: Atraumatic. Normocephalic. EYES: Pupils equal and round and reactive. No scleral icterus. No injection or drainage. Fundi not examined. ENT: Hearing grossly normal. Nose without bleeding or purulent drainage. NECK: Trachea midline. CARDIOVASCULAR: Regularly irregular. No Murmurs, gallops, or rubs. No JVD. Peripheral pulses symmetric. RESPIRATORY/CHEST: Symmetric, unlabored respirations. Clear to auscultation. Breath sounds diminished bilaterally. No wheezes, rales, or rhonchi. Left- sided chest tube in place. GASTROINTESTINAL: Abdomen soft, non-tender, nondistended. No guarding. Bowel sounds present. GENITOURINARY: Without palpable bladder distension. Suprapubic catheter in place MUSCULOSKELETAL: Extremities without clubbing, cyanosis, or edema. No mottling or clubbing. LYMPHATICS: No palpable cervical or supraclavicular adenopathy. NEUROLOGICAL: Remains intermittently confused. Answers some questions appropriately, follows directions. Moving all extremities 4. PSYCHIATRIC: No obvious anxiety/depression. Intermittent hallucinations reported . Diagnostic Tests Laboratory Laboratory Tests Test 10/19/17 00:45 10/19/17 05:40 10/20/17 06:40 10/21/17 06:06 Blood Urea Nitrogen 17 MG/DL (7-18) 17 MG/DL (7-18) 27 MG/DL (7-18) Creatinine 0.53 MG/DL (0.60-1.30) 0.45 MG/DL (0.60-1.30) 0.59 MG/DL (0.60-1.30) Random Glucose 96 MG/DL (74-106) 144 MG/DL (74-106) 210 MG/DL (74-106) Total Protein 6.1 GM/DL (6.4-8.2) 6.3 GM/DL (6.4-8.2) 6.0 GM/DL (6.4-8.2) Albumin 1.9 GM/DL (3.4-5.0) 2.0 GM/DL (3.4-5.0) 1.8 GM/DL (3.4-5.0) Calcium Level 8.1 MG/DL (8.5-10.1) 8.3 MG/DL (8.5-10.1) 8.2 MG/DL (8.5-10.1) Alkaline Phosphatase 62 U/L (45-117) 66 U/L (45-117) 73 U/L (45-117) Aspartate Amino Transf (AST/SGOT) 10 U/L (15-37) 12 U/L (15-37) 12 U/L (15-37) Alanine Aminotransferase (ALT/SGPT) 10 U/L (12-78) 10 U/L (12-78) 10 U/L (12-78) Total Bilirubin 0.2 MG/DL (0.2-1.0) 0.3 MG/DL (0.2-1.0) 0.2 MG/DL (0.2-1.0) Sodium Level 140 MEQ/L (136-145) 138 MEQ/L (136-145) 137 MEQ/L (136-145) Potassium Level 3.6 MEQ/L (3.5-5.1) 3.4 MEQ/L (3.5-5.1) 4.4 MEQ/L (3.5-5.1) Chloride Level 101 MEQ/L (98-107) 99 MEQ/L (98-107) 100 MEQ/L (98-107) Carbon Dioxide Level 35.4 MEQ/L (21.0-32.0) 34.3 MEQ/L (21.0-32.0) 31.9 MEQ/L (21.0-32.0) Anion Gap 4 MEQ/L (5-15) 5 MEQ/L (5-15) 5 MEQ/L (5-15) Estimat Glomerular Filtration Rate 146 ML/MIN (>89) 177 ML/MIN (>89) 129 ML/MIN (>89) Vancomycin Level Trough 15.9 MCG/ML (5.0-10.0) White Blood Count 12.5 TH/MM3 (4.0-11.0) 12.9 TH/MM3 (4.0-11.0) 12.3 TH/MM3 (4.0-11.0) Red Blood Count 4.30 MIL/MM3 (4.50-5.90) 4.58 MIL/MM3 (4.50-5.90) 4.23 MIL/MM3 (4.50-5.90) Hemoglobin 12.4 GM/DL (13.0-17.0) 13.3 GM/DL (13.0-17.0) 12.2 GM/DL (13.0-17.0) Hematocrit 37.6 % (39.0-51.0) 40.1 % (39.0-51.0) 36.6 % (39.0-51.0) Mean Corpuscular Volume 87.3 FL (80.0-100.0) 87.5 FL (80.0-100.0) 86.5 FL (80.0-100.0) Mean Corpuscular Hemoglobin 28.7 PG (27.0-34.0) 29.0 PG (27.0-34.0) 28.8 PG (27.0-34.0) Mean Corpuscular Hemoglobin Concent 32.9 % (32.0-36.0) 33.2 % (32.0-36.0) 33.3 % (32.0-36.0) Red Cell Distribution Width 18.3 % (11.6-17.2) 18.3 % (11.6-17.2) 18.4 % (11.6-17.2) Platelet Count 403 TH/MM3 (150-450) 448 TH/MM3 (150-450) 455 TH/MM3 (150-450) Mean Platelet Volume 7.6 FL (7.0-11.0) 7.6 FL (7.0-11.0) 7.4 FL (7.0-11.0) Neutrophils (%) (Auto) 73.2 % (16.0-70.0) 69.8 % (16.0-70.0) 71.2 % (16.0-70.0) Lymphocytes (%) (Auto) 16.4 % (9.0-44.0) 19.8 % (9.0-44.0) 18.8 % (9.0-44.0) Monocytes (%) (Auto) 5.9 % (0.0-8.0) 6.3 % (0.0-8.0) 6.2 % (0.0-8.0) Eosinophils (%) (Auto) 4.2 % (0.0-4.0) 3.8 % (0.0-4.0) 3.3 % (0.0-4.0) Basophils (%) (Auto) 0.3 % (0.0-2.0) 0.3 % (0.0-2.0) 0.5 % (0.0-2.0) Neutrophils # (Auto) 9.1 TH/MM3 (1.8-7.7) 9.0 TH/MM3 (1.8-7.7) 8.8 TH/MM3 (1.8-7.7) Lymphocytes # (Auto) 2.0 TH/MM3 (1.0-4.8) 2.6 TH/MM3 (1.0-4.8) 2.3 TH/MM3 (1.0-4.8) Monocytes # (Auto) 0.7 TH/MM3 (0-0.9) 0.8 TH/MM3 (0-0.9) 0.8 TH/MM3 (0-0.9) Eosinophils # (Auto) 0.5 TH/MM3 (0-0.4) 0.5 TH/MM3 (0-0.4) 0.4 TH/MM3 (0-0.4) Basophils # (Auto) 0.0 TH/MM3 (0-0.2) 0.0 TH/MM3 (0-0.2) 0.1 TH/MM3 (0-0.2) CBC Comment DIFF FINAL DIFF FINAL DIFF FINAL Differential Comment Result Diagram: 10/21/17 0606 10/21/17 0606 Procedures 10/16/2017: Left-sided chest tube placement . Assessment and Plan Disease Oriented Problem List: (1) Dementia (2) Hypothyroidism (3) Sepsis (4) UTI (urinary tract infection) (5) Hypertension (6) Diabetes mellitus Symptom Scale: (1) Decrease in appetite (2) Debility (3) Confusion Pertinent Non-Medical Issues Psychosocial:Patient is originally from [place]. He lived in [place], [place] for many years. 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 His in 2004. The patient has 5 adult children. Two daughters live in [place]; Two sons live in [place] and one son who lives in [place] and is estranged from the family. The patient's daughter states "being cognitively sharp" is probably the most important thing to her father. Spiritual: Advent pam Legal: HCS and Living will completed on 05/23/2015. Francisca Veliz is the designated [facility] decision-maker. Francisca Monet has been designated as the alternate [facility] decision-maker. The patient completed a standard living will on stating he wishes that life prolonging procedures be withheld or withdrawn in the event that 2 physicians determine there is no reasonable medical probability of recovery from a terminal condition, an end-stage condition or if he is in a permanent vegetative state. At that time, he wishes to be allowed to peacefully and naturally with only the administration of medication or performance of procedures deemed necessary to provide him comfort. Ethical issues impacting care: No known ethical issues impacting care at this time. . Important Contacts Lola Veliz, daughter: [phone] . Prognosis Mr. Courtney is an 89 year old man with a complex medical history who as significantly declined in the past 6 moths. He has had multiple hospitalizations for recurrent UTIs, sepsis, pneumonia, C. difficile and bladder outlet obstruction from BPH requiring a suprapubic catheter. The patient has become progressively more weak, lethargic and confused. He has had a reported weight loss of 50 pounds in the past year and is now too weak to ambulate. Given this patient's advanced age, significant loss in functional status and recurrent infections, his over all prognosis is poor and he is hospice appropriate should his medical treatment goals become comfort focused. . Code Status: No Code Plan * NO CODE- DNR/DNI * Community DNR completed and placed in chart. * Decision-making: Patient currently does not have insight or judgment related to his clinical conditions; it is unclear if the patient will regain capacity. Francisca Veliz is the designated [facility] decision-maker. Francisca Monet has been designated as the alternate [facility] decision-maker. * The patient completed a standard living will on 05/23/15 stating he wishes that life prolonging procedures be withheld or withdrawn in the event that 2 physicians determine there is no reasonable medical probability of recovery from a terminal condition, an end-stage condition or if he is in a permanent vegetative state. At that time, he wishes to be allowed to peacefully and naturally with only the administration of medication or performance of procedures deemed necessary to provide him comfort. * GOAL: Spoke with patient's daughter via telephone to update on patient's clinical condition and discuss current medical treatment plan. Family initially wanted to transition to hospice upon discharge but goals are no unclear. Daughter is considering SNF at discharge and then transition to hospice if the patient does not tolerate rehab. * Discussed patient with block and case maker, Rosy, and bedside nurse. * Symptom management-decreased appetite: Decreased appetite with associated weight loss reported. Patient's daughter reports a 50 pound weight loss in the past 12 months. BMI: 23.5; albumin 2.0 * Symptom management-confusion: Patient has some degree of dementia at baseline and is on Aricept at home. Confusion slowly improving. Encephalopathy is likely multifactorial; contributing factors include recent hospitalization, sepsis and underlying dementia. Patient is on Aricept at home. CT head on 10/14 was stable. Will continue to monitor patient closely to ensure safety and reorient patient as appropriate. * Symptom management-debility: Patient has become progressively more weak in recent months. He is no longer able to ambulate per his daughter's report. If goals remain aggressive, patient will need placement at SNF for rehabilitation at discharge. * Symptom management- dyspnea: Patient having increasing respiratory distress on 10/16/2017.; chest x-ray revealed persistent large left-sided pneumothorax requiring chest tube placement.Follow-up chest x-ray today showed persistent small left pneumothorax. CT chest pending. * Palliative care will continue to follow this patient throughout his hospitalization to establish trust, assist with symptom management and clarification of medical treatment goals. . Nati Concepcion Oct 21, 2017 14:13
--- NOTE | 2017-10-21 15:40 | HHI.HCPN ---
Reason for visit a. To assist with evaluation and management of symptoms including: Decreased appetite, confusion, debility, dyspnea b. To assist medical decision maker(s) with: better understanding of current medical conditions; weighing benefits/burdens of medical treatment options; making medical treatment decisions. . Subjective/Interval History Follow up visit for symptom management and clarification of goals. Mr. Courtney was seen and assessed in room 243. Patient is very engaged in conversation today and becoming progressively more alert. Patient is on Aricept at home. CT head on 10/14/2017 was stable. Patient denying any shortness of breath on exam. Pulmonology was consulted on due to worsening respiratory distress with persistent large left-sided pneumothorax requiring chest tube placement. CT chest on 10/20/2017 showing persistent left sided pneumothorax and small bilateral pleural effusions with concomitant bibasilar atelectatic changes. Initial urine and blood culture growing MRSA. Follow-up blood culture remains negative. Follow-up urine culture growing Shaila Glabrata. NAYELY was negative for vegetation. Will continue IV vancomycin 14 days through 10/27/2017; started on Diflucan. Infectious disease will continue to follow this patient, considering starting the patient on prophylactic antibiotic for recurrent UTI. Urology was consulted on this patient with a history of BPH obstruction and recurrent urinary tract infection status post suprapubic catheter placed 3-[address] abdomen/pelvis showing cholelithiasis, right-sided hydronephrosis and hydroureter. Left-sided hydronephrosis has resolved. Distal abdominal aortic aneurysm measuring 3.8 x 3.2 cm. Large hernia abdominal wall containing multiple bowel loops. No sign of obstruction or strangulation. Massive enlargement of the prostate gland. Hyperdense material within decompressed urinary bladder, may be thrombus. Per Dr. Armstrong, hydronephrosis appears to be moderate in view of normal creatinine, this could be related to recent infection and sepsis. Will continue to monitor patient, no need for stent at this time. Physical therapy continues to follow this patient. Patient was reluctant to participate in therapy today, becoming argumentative when he could not transfer the way he wanted to. Patient was able to sit on the edge of the bed today Patient remains significantly deconditioned and will require placement at SNF for rehabilitation upon discharge, however he says he is going to go home at discharge and will continue to have flexographic press helper twice daily for 4 hours in the morning and 4 hours later in the day. Given the patient's current functional status, this is not a reasonable option for a safe a discharge. . Family/friend interactions Spoke to patient's daughter (Lola) again today to provide an update on the patient's clinical condition. Lola is hopeful after being able to speak to her father on the telephone today for the first time since his hospitalization. She is now leaning toward placement at a SNF for rehab upon discharge or possibly coming to [place] for a period of time to assist with his care. She is becoming more optimistic now that her father is less confused and will likely want to offer him the opportunity to get stronger before transitioning to comfort focused care. . Advance Directives Living Will: Copy in medical record Health Care Surrogate: Copy in medical record Advance Directive Specifics Date completed: 05/23/2015 . Health Care Surrogate(s): Francisca Veliz is the designated [facility] decision-maker. Francisca Monet has been designated as the alternate [facility] decision-maker. . Documented care wishes: The patient completed a standard living will on 05/23/15 stating he wishes that life prolonging procedures be withheld or withdrawn in the event that 2 physicians determine there is no reasonable medical probability of recovery from a terminal condition, an end-stage condition or if he is in a permanent vegetative state. At that time, he wishes to be allowed to peacefully and naturally with only the administration of medication or performance of procedures deemed necessary to provide him comfort. . Objective Vital Signs Date Time Temp Pulse Resp B/P (MAP) Pulse Ox O2 Delivery O2 Flow Rate FiO2 10/21/17 12:09 98.0 74 18 102/50 (67) 94 10/21/17 08:45 94 Nasal Cannula 3.00 10/21/17 08:45 97.9 68 17 117/65 (82) 94 10/21/17 07:43 93 Nasal Cannula 3.00 10/21/17 06:00 67 10/21/17 05:00 66 10/21/17 04:00 97.0 69 16 131/60 (83) 93 10/21/17 04:00 60 10/21/17 03:00 70 10/21/17 02:00 67 10/21/17 01:00 77 10/21/17 00:00 97.5 80 16 105/52 (69) 93 10/21/17 00:00 70 10/20/17 23:00 69 10/20/17 22:00 74 10/20/17 21:00 81 10/20/17 20:36 94 Nasal Cannula 3.00 10/20/17 20:00 Nasal Cannula 4.00 10/20/17 20:00 65 10/20/17 20:00 97.6 74 16 102/62 (75) 94 10/20/17 19:00 74 10/20/17 18:00 79 10/20/17 17:00 76 10/20/17 16:00 69 10/20/17 16:00 97.8 75 18 116/63 (80) 95 Intake & Output 10/21/17 10/21/17 07:00 19:00 Intake Total 690 ml Output Total 1000 ml Balance -310 ml Intake Oral 440 ml IV Total 250 ml Output Urine Total 1000 ml # Bowel Movements 1 . Physical Exam CONSTITUTIONAL/GENERAL: This is a frail, elderly male patient in no acute distress. TUBES/LINES/DRAINS: Suprapubic catheter, PIV x 2, chest tube SKIN: Skin is thin and fragile. Skin temperature appropriate. Not diaphoretic. Ecchymosis on upper extremities bilaterally. HEAD: Atraumatic. Normocephalic. EYES: Pupils equal and round and reactive. No scleral icterus. No injection or drainage. Fundi not examined. ENT: Hearing grossly normal. Nose without bleeding or purulent drainage. NECK: Trachea midline. CARDIOVASCULAR: Regularly irregular. No Murmurs, gallops, or rubs. No JVD. Peripheral pulses symmetric. RESPIRATORY/CHEST: Symmetric, unlabored respirations. Clear to auscultation. Breath sounds diminished bilaterally. No wheezes, rales, or rhonchi. Left- sided chest tube in place with minimal output. GASTROINTESTINAL: Abdomen soft, non-tender, nondistended. No guarding. Bowel sounds present. GENITOURINARY: Without palpable bladder distension. Suprapubic catheter in place MUSCULOSKELETAL: Extremities without clubbing, cyanosis, or edema. LYMPHATICS: No palpable cervical or supraclavicular adenopathy. NEUROLOGICAL: Engaged in conversation, remains pleasantly confused at time but improving. PSYCHIATRIC: No obvious anxiety/depression. Intermittent hallucinations reported . Diagnostic Tests Laboratory Laboratory Tests Test 10/19/17 00:45 10/19/17 05:40 10/20/17 06:40 10/21/17 06:06 Blood Urea Nitrogen 17 MG/DL (7-18) 17 MG/DL (7-18) 27 MG/DL (7-18) Creatinine 0.53 MG/DL (0.60-1.30) 0.45 MG/DL (0.60-1.30) 0.59 MG/DL (0.60-1.30) Random Glucose 96 MG/DL (74-106) 144 MG/DL (74-106) 210 MG/DL (74-106) Total Protein 6.1 GM/DL (6.4-8.2) 6.3 GM/DL (6.4-8.2) 6.0 GM/DL (6.4-8.2) Albumin 1.9 GM/DL (3.4-5.0) 2.0 GM/DL (3.4-5.0) 1.8 GM/DL (3.4-5.0) Calcium Level 8.1 MG/DL (8.5-10.1) 8.3 MG/DL (8.5-10.1) 8.2 MG/DL (8.5-10.1) Alkaline Phosphatase 62 U/L (45-117) 66 U/L (45-117) 73 U/L (45-117) Aspartate Amino Transf (AST/SGOT) 10 U/L (15-37) 12 U/L (15-37) 12 U/L (15-37) Alanine Aminotransferase (ALT/SGPT) 10 U/L (12-78) 10 U/L (12-78) 10 U/L (12-78) Total Bilirubin 0.2 MG/DL (0.2-1.0) 0.3 MG/DL (0.2-1.0) 0.2 MG/DL (0.2-1.0) Sodium Level 140 MEQ/L (136-145) 138 MEQ/L (136-145) 137 MEQ/L (136-145) Potassium Level 3.6 MEQ/L (3.5-5.1) 3.4 MEQ/L (3.5-5.1) 4.4 MEQ/L (3.5-5.1) Chloride Level 101 MEQ/L (98-107) 99 MEQ/L (98-107) 100 MEQ/L (98-107) Carbon Dioxide Level 35.4 MEQ/L (21.0-32.0) 34.3 MEQ/L (21.0-32.0) 31.9 MEQ/L (21.0-32.0) Anion Gap 4 MEQ/L (5-15) 5 MEQ/L (5-15) 5 MEQ/L (5-15) Estimat Glomerular Filtration Rate 146 ML/MIN (>89) 177 ML/MIN (>89) 129 ML/MIN (>89) Vancomycin Level Trough 15.9 MCG/ML (5.0-10.0) White Blood Count 12.5 TH/MM3 (4.0-11.0) 12.9 TH/MM3 (4.0-11.0) 12.3 TH/MM3 (4.0-11.0) Red Blood Count 4.30 MIL/MM3 (4.50-5.90) 4.58 MIL/MM3 (4.50-5.90) 4.23 MIL/MM3 (4.50-5.90) Hemoglobin 12.4 GM/DL (13.0-17.0) 13.3 GM/DL (13.0-17.0) 12.2 GM/DL (13.0-17.0) Hematocrit 37.6 % (39.0-51.0) 40.1 % (39.0-51.0) 36.6 % (39.0-51.0) Mean Corpuscular Volume 87.3 FL (80.0-100.0) 87.5 FL (80.0-100.0) 86.5 FL (80.0-100.0) Mean Corpuscular Hemoglobin 28.7 PG (27.0-34.0) 29.0 PG (27.0-34.0) 28.8 PG (27.0-34.0) Mean Corpuscular Hemoglobin Concent 32.9 % (32.0-36.0) 33.2 % (32.0-36.0) 33.3 % (32.0-36.0) Red Cell Distribution Width 18.3 % (11.6-17.2) 18.3 % (11.6-17.2) 18.4 % (11.6-17.2) Platelet Count 403 TH/MM3 (150-450) 448 TH/MM3 (150-450) 455 TH/MM3 (150-450) Mean Platelet Volume 7.6 FL (7.0-11.0) 7.6 FL (7.0-11.0) 7.4 FL (7.0-11.0) Neutrophils (%) (Auto) 73.2 % (16.0-70.0) 69.8 % (16.0-70.0) 71.2 % (16.0-70.0) Lymphocytes (%) (Auto) 16.4 % (9.0-44.0) 19.8 % (9.0-44.0) 18.8 % (9.0-44.0) Monocytes (%) (Auto) 5.9 % (0.0-8.0) 6.3 % (0.0-8.0) 6.2 % (0.0-8.0) Eosinophils (%) (Auto) 4.2 % (0.0-4.0) 3.8 % (0.0-4.0) 3.3 % (0.0-4.0) Basophils (%) (Auto) 0.3 % (0.0-2.0) 0.3 % (0.0-2.0) 0.5 % (0.0-2.0) Neutrophils # (Auto) 9.1 TH/MM3 (1.8-7.7) 9.0 TH/MM3 (1.8-7.7) 8.8 TH/MM3 (1.8-7.7) Lymphocytes # (Auto) 2.0 TH/MM3 (1.0-4.8) 2.6 TH/MM3 (1.0-4.8) 2.3 TH/MM3 (1.0-4.8) Monocytes # (Auto) 0.7 TH/MM3 (0-0.9) 0.8 TH/MM3 (0-0.9) 0.8 TH/MM3 (0-0.9) Eosinophils # (Auto) 0.5 TH/MM3 (0-0.4) 0.5 TH/MM3 (0-0.4) 0.4 TH/MM3 (0-0.4) Basophils # (Auto) 0.0 TH/MM3 (0-0.2) 0.0 TH/MM3 (0-0.2) 0.1 TH/MM3 (0-0.2) CBC Comment DIFF FINAL DIFF FINAL DIFF FINAL Differential Comment Result Diagram: 10/21/17 0606 10/21/17 0606 Imaging Last 72 hours Impressions Chest X-Ray 10/20/17 0900 Signed Impressions: Service Date/Time: Friday, October 20, 2017 08:55 - CONCLUSION: Persistent small left pneumothorax. Fabiano Peck MD Chest CT 10/20/17 0000 Signed Impressions: Service Date/Time: Friday, October 20, 2017 15:54 - CONCLUSION: 1. [place] loop thoracostomy tube in the left hemithorax is positioned posteriorly in the small left pleural effusion. 2. Persistent left-sided pneumothorax. Would consider a surgical thoracostomy tube more anteriorly to treat the same. 3. Right apical bleb. Small bilateral pleural effusions with concomitant bibasilar atelectatic changes. 4. Cholelithiasis. Nash Armijo MD . Procedures 10/16/2017: Left-sided chest tube placement . Assessment and Plan Disease Oriented Problem List: (1) Dementia (2) Hypothyroidism (3) Sepsis (4) UTI (urinary tract infection) (5) Hypertension (6) Diabetes mellitus Symptom Scale: (1) Decrease in appetite (2) Debility (3) Confusion Pertinent Non-Medical Issues Psychosocial:Patient is originally from [place]. He lived in [place], [place] for many years. 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 His in 2004. The patient has 5 adult children. Two daughters live in [place]; Two sons live in [place] and one son who lives in [place] and is estranged from the family. The patient's daughter states "being cognitively sharp" is probably the most important thing to her father. Spiritual: Religious pam Legal: HCS and Living will completed on 05/23/2015. Francisca Veliz is the designated [facility] decision-maker. Francisca Monet has been designated as the alternate [facility] decision-maker. The patient completed a standard living will on stating he wishes that life prolonging procedures be withheld or withdrawn in the event that 2 physicians determine there is no reasonable medical probability of recovery from a terminal condition, an end-stage condition or if he is in a permanent vegetative state. At that time, he wishes to be allowed to peacefully and naturally with only the administration of medication or performance of procedures deemed necessary to provide him comfort. Ethical issues impacting care: No known ethical issues impacting care at this time. . Important Contacts Lola Veliz, daughter: [phone] . Prognosis Mr. Courtney is an 89 year old man with a complex medical history who as significantly declined in the past 6 moths. He has had multiple hospitalizations for recurrent UTIs, sepsis, pneumonia, C. difficile and bladder outlet obstruction from BPH requiring a suprapubic catheter. The patient has become progressively more weak, lethargic and confused. He has had a reported weight loss of 50 pounds in the past year and is now too weak to ambulate. Given this patient's advanced age, significant loss in functional status and recurrent infections, his over all prognosis is poor and he is hospice appropriate should his medical treatment goals become comfort focused. . Code Status: No Code Plan * NO CODE- DNR/DNI * Community DNR completed and placed in chart. * Decision-making: Patient currently does not have insight or judgment related to his clinical conditions; it is unclear if the patient will regain capacity. Francisca Veliz is the designated [facility] decision-maker. Francisca Monet has been designated as the alternate [facility] decision-maker. * The patient completed a standard living will on 05/23/15 stating he wishes that life prolonging procedures be withheld or withdrawn in the event that 2 physicians determine there is no reasonable medical probability of recovery from a terminal condition, an end-stage condition or if he is in a permanent vegetative state. At that time, he wishes to be allowed to peacefully and naturally with only the administration of medication or performance of procedures deemed necessary to provide him comfort. * GOAL: Spoke to patient's daughter (Lola) again today to provide an update on the patient's clinical condition. Lola is more hopeful today after being able to speak to her father on the telephone phone. She is now leaning toward placement at a SNF for rehab upon discharge or possibly coming to [place] for a period of time to assist with his care. She is more optimistic now that her father is less confused and will likely want to offer him the opportunity to get stronger before transitioning to comfort focused care. * Discussed patient with Dr. Plasencia * Symptom management-decreased appetite: Decreased appetite with associated weight loss reported. Patient's daughter reports a 50 pound weight loss in the past 12 months. BMI: 23.5; albumin 2.0 Reported intake over the past 48 hours approximately 50-75%. * Symptom management-confusion: Patient has some degree of dementia at baseline and is on Aricept at home. Confusion slowly improving. Encephalopathy is likely multifactorial; contributing factors include recent hospitalization, sepsis and underlying dementia. Patient is on Aricept at home. CT head on 10/14 was stable. Will continue to monitor patient closely to ensure safety and reorient patient as appropriate. * Symptom management-debility: Physical therapy continues to follow this patient. Patient was reluctant to speak in therapy today; he become argumentative when he cannot transfer the way he wants to. Patient was able to sit on the edge of the bed. Patient is significantly deconditioned and will require placement at SNF for rehabilitation upon discharge, however he says he is going to go home at discharge and continue having flexographic press helper twice daily for 4 hours in the morning and 4 hours later in the day. * Symptom management- dyspnea: Patient denies dyspnea on exam today. Pulmonology was consulted on 10/16/2017 due to worsening respiratory distress with persistent large left-sided pneumothorax requiring chest tube placement. CT chest on 10/20/2017 showing persistent left sided pneumothorax and small bilateral pleural effusions with concomitant bibasilar atelectatic changes. * Palliative care will continue to follow this patient throughout his hospitalization to establish trust, assist with symptom management and clarification of medical treatment goals. . Attestation To help prompt me to consider important information that might be impacting today's encounter and assessment, information from prior notes written by myself or my colleagues may have been "brought forward" into today's note. My signature on this note, however, is an attestation that I personally performed the exam, history, and/or decision-making noted today, and, unless otherwise indicated, the interactions with patient, family, and staff as well as the review of records all occurred today. I also attest that the listed assessment and stated plan reflect my best clinical judgment today based on the combination of historical information, prior notes, and today's exam/ interactions. When time spent is documented, it refers only to time spent today by the signer, or if indicated, combined time spent today by collaborating physician/nurse practitioner. . Nati Concepcion Oct 21, 2017 15:40
--- NOTE | 2017-10-21 19:49 | HHI.PR ---
Subjective Remarks No new complaints. Possible removal of chest tube tomorrow. Patient was out of bed with PT today (not when seen). Objective Vital Signs Date Time Temp Pulse Resp B/P (MAP) Pulse Ox O2 Delivery O2 Flow Rate FiO2 10/21/17 18:02 74 10/21/17 17:00 67 10/21/17 16:20 98.2 74 18 110/60 (77) 92 10/21/17 16:00 73 10/21/17 15:00 80 10/21/17 14:00 74 10/21/17 13:00 73 10/21/17 12:09 98.0 74 18 102/50 (67) 94 10/21/17 12:00 66 10/21/17 11:00 70 10/21/17 10:00 77 10/21/17 09:00 87 10/21/17 08:45 94 Nasal Cannula 3.00 10/21/17 08:45 97.9 68 17 117/65 (82) 94 10/21/17 08:00 70 10/21/17 07:43 93 Nasal Cannula 3.00 10/21/17 07:00 70 10/21/17 06:00 67 10/21/17 05:00 66 10/21/17 04:00 97.0 69 16 131/60 (83) 93 10/21/17 04:00 60 10/21/17 03:00 70 10/21/17 02:00 67 10/21/17 01:00 77 10/21/17 00:00 97.5 80 16 105/52 (69) 93 10/21/17 00:00 70 10/20/17 23:00 69 10/20/17 22:00 74 10/20/17 21:00 81 10/20/17 20:36 94 Nasal Cannula 3.00 10/20/17 20:00 Nasal Cannula 4.00 10/20/17 20:00 65 10/20/17 20:00 97.6 74 16 102/62 (75) 94 I/O 10/20/17 10/20/17 10/20/17 10/21/17 10/21/17 10/21/17 06:59 14:59 22:59 06:59 14:59 22:59 Intake Total 730 ml 840 ml 690 ml 520 ml Output Total 770 ml 770 ml 1000 ml 760 ml Balance -40 ml 70 ml -310 ml -240 ml Intake Oral 480 ml 840 ml 440 ml 520 ml IV Total 250 ml 250 ml Output Urine Total 750 ml 700 ml 1000 ml 750 ml Chest Tube Drainage Total 20 ml 70 ml 10 ml # Bowel Movements 2 2 1 Result Diagram: 10/21/1760510/21/17605 Objective Remarks GENERAL: NAD, A&Ox3 HEAD: Normocephalic. NECK: Supple, trachea midline. No lymphadenopathy. EYES: No scleral icterus. No injection or drainage. CARDIOVASCULAR: Regular rate and rhythm without murmurs, gallops, or rubs. RESPIRATORY: Breath sounds equal bilaterally. No accessory muscle use. GASTROINTESTINAL: Abdomen soft, non-tender, nondistended. MUSCULOSKELETAL: No cyanosis, or edema. Chest tube present at left side SKIN: Warm and dry. Stage 1 sacral/buttock wound NEURO: No focal neurological deficitis. A/P Problem List: (1) Hypoxia ICD Code: R09.02 - Hypoxemia Status: Acute (2) Pneumothorax ICD Code: J93.9 - Pneumothorax, unspecified (3) UTI (urinary tract infection) ICD Code: N39.0 - Urinary tract infection, site not specified Status: Acute (4) Sepsis ICD Code: A41.9 - Sepsis, unspecified organism Status: Resolved Assessment and Plan Assessment and Plan 89-year-old male admitted secondary to sepsis, UTI, and pneumothorax. Labs reviewed. No acute concerns on findings. Labs shows stability. Continue monitoring labs given presence of chest tube. Chest tube remains, pain control. Plan for removal of chest tube tomorrow. Continue to work with PT. Sepsis Resolved Complex UTI (MRSA/Yeast) Chronic suprapubic catheter Catheter exchange in the ER on 10/12/17 Continue vancomycin Continue Diflucan Urology following Bacteremia with MRSA Continue to monitor repeat blood culture Follow repeat blood cultures until negative Infectious disease following Congestive heart failure Baseline EF is 35% Continue baseline treatments Monitor closely for any fluid overload Pneumothorax Chest tube present Pulmonology following Follow oxygen saturations Maintain oxygen saturations greater than 90% Generalized weakness Generalized debility Physical therapy A-fib with RVR Resolved Continue metoprolol Continue Cardizem Follow on telemetry Diabetes mellitus type 2 Follow blood sugars Insulin sliding scale Diabetic diet Hypertension Continue metoprolol Continue Cardizem Lisinopril discontinued Follow blood pressures Dementia Mild Continue Aricept Hypothyroidism Continue Synthroid Follows in outpatient buttock/sacral wound (stage 1) Superficial skin irritation Wound care following Air mattress present DVT Prophylaxis SCDs Phillip Wilson MD Oct 21, 2017 19:49
[2017-10-21] MEDS: DONEPEZIL HCL 5 MG TAB PO SCH (20:09)
[2017-10-22] VITALS (24 sets, daily range): BP systolic 108–124; BP diastolic 56–76; PULSE 60–86; RESP 18; TEMP 96.5–98.6; O2SAT 91–98
--- NOTE | 2017-10-22 03:32 | RADRPT ---
EXAM DATE/TIME: 10/22/2017 02:40 [facility] COMPARISON: CHEST SINGLE AP, October 20, 2017, 8:55. INDICATIONS : Short of breath. MEDICAL HISTORY : Hypertension. Hiatal hernia. Diabetes mellitus type II. SURGICAL HISTORY : None. ENCOUNTER: Subsequent ACUITY: 4 - 6 days PAIN SCORE: 0/10 LOCATION: Bilateral chest FINDINGS: There is a persistent lateral left pneumothorax measuring 1.2 cm (previously measured 1.8 cm. [place] l chest catheter projected in the lower lateral left chest. The thorax outlines the lateral left hem idiaphragm. Patchy right infrahilar infiltrate similar to prior. The heart is normal in size. CONCLUSION: 1. Slight decrease in the size of the left pneumothorax with chest drainage catheter in place. 2. Stable right medial lower lung infiltrate. Nathaniel Erazo MD on October 22, 2017 at 3:29 Board Certified Radiologist. This report was verified electronically.
[2017-10-22] MEDS: DILTIAZEM HCL 60 MG TAB PO SCH ×4 (05:37→18:16)
[2017-10-22] MEDS: LEVOTHYROXINE SODIUM 100 MCG TAB PO SCH (05:37)
[2017-10-22] MEDS: RESP: ALBUTEROL 2.5 MG/IPRATROPIUM 0.5 MG NEB (SCH) NEB ×2 (07:47→13:20)
[2017-10-22] MEDS: INSULIN ASPART SUPPLEMENTAL SCALE SQ SCH ×4 (08:00→21:00)
[2017-10-22 08:07] LABS: ALT (GPT) 11 U/L (12-78); ANION GAP 4 MEQ/L (5-15); AST (GOT) 12 U/L (15-37); BICARBONATE 33.3 MEQ/L (21.0-32.0); BLOOD UREA NITROGEN 25 MG/DL (7-18); CHLORIDE 100 MEQ/L (98-107); GLOMERULAR FILTRATION RATE 127 ML/MIN (>89); POTASSIUM 4.2 MEQ/L (3.5-5.1); SODIUM (NA) 137 MEQ/L (136-145)
[2017-10-22 08:10] LABS: ALKALINE PHOSPHATASE 71 U/L (45-117); TOTAL BILIRUBIN ADULT 0.2 MG/DL (0.2-1.0)
[2017-10-22] MEDS: SODIUM CHLORIDE 0.9% FLUSH 10 ML FLUSH IV FLUSH SCH ×2 (09:00→21:00)
[2017-10-22 09:41] LABS: AUTOMATED NEUTROPHIL # 10.2 TH/MM3 (1.8-7.7); BASOPHIL # 0.1 TH/MM3 (0-0.2); BASOPHIL % 0.5 % (0.0-2.0); EOSINOPHIL # 0.4 TH/MM3 (0-0.4); EOSINOPHIL % 3.1 % (0.0-4.0); HEMATOCRIT 37.8 % (39.0-51.0); HEMO FLAGS DIFF FINAL; LYMPH % 18.1 % (9.0-44.0); LYMPHOCYTE # 2.6 TH/MM3 (1.0-4.8); MEAN CELL VOLUME 87.2 FL (80.0-100.0); MEAN CORPUSCULAR HEMOGLOBIN 28.8 PG (27.0-34.0); MONO % 6.4 % (0.0-8.0); NEUT % 71.9 % (16.0-70.0); PLATELET COUNT 468 TH/MM3 (150-450); RED BLOOD COUNT 4.34 MIL/MM3 (4.50-5.90); RED CELL DISTRIBUTION WIDTH 18.1 % (11.6-17.2); WHITE BLOOD COUNT 14.1 TH/MM3 (4.0-11.0)
--- NOTE | 2017-10-22 10:26 | HHI.IDPN ---
Subjective Subjective Remarks Patient is an 89-year-old male, who lives at home, brought into the hospital for further evaluation of increasing lethargy, and confusion. Patient lives at home alone, and usually the family arranges for [employer] to check up on him or stay with him during the day. He has had problem with multiple UTIs, and apparently his urine was tested and there was some evidence of UTI, and Cipro was called in. Patient however did not start Cipro because he was getting more confused so he was taken to the hospital for further evaluation and treatment. His been noted to be getting some hallucination. There's been no fever or chills or sweats. No noted respiratory problem. He has not had any nausea or vomiting or any diarrhea. Patient also since his been lethargic has not been ambulating as before. Patient has not been febrile. His WBC was elevated. His suprapubic catheter was changed in the emergency room. Apparently gets changed once a month. Patient could not tell me when the last time it was change but during his last hospitalization in August, he underwent cystoscopy, evacuation of hematoma and exchange of his suprapubic catheter done by Dr. Armstrong. 1 out of the 2 blood cultures growing MRSA. His urine culture has MRSA. He has had previous urine culture that had MRSA. Infectious disease consultation has been requested to evaluate the patient. Patient currently remains very confused. Notes reviewed D/W Dr Wilson ([facility]) Afebrile Has CT on L side Repeat CT - no change in L PTX CXR today with persistent PTX 2 BC on admission with MRSA Repeat BC negative CT A/P with R hydronephrosis, improving hydro on L Repeat UC with C. glabrata Antibiotics Current Medications Vancomycin IV Diflucan Medications (Trade) Dose Ordered Sig/Shanel Route Start Time Stop Time Status Last Admin (D50w (Vial) Inj) 50 ml UNSCH PRN IV PUSH 10/12/17 12:00 (Glucagon Inj) 1 mg UNSCH PRN OTHER 10/12/17 12:00 (NovoLOG SUPPLEMENTAL SCALE) 1 ACHS SLIDING SCALE SQ 10/12/17 12:00 10/21/17 21:00 Sodium Chloride 1,000 ml @ 70 mls/hr [id number] IV 10/12/17 11:52 Future Hold 10/17/17 06:16 (NS Flush) 2 ml UNSCH PRN IV FLUSH 12/3/17 12:00 (NS Flush) 2 ml BID IV FLUSH 10/12/17 21:00 10/21/17 20:09 (Tylenol) 650 mg Q4H PRN PO 10/12/17 12:00 (Zofran Inj) 4 mg Q6H PRN IVP 10/12/17 12:00 10/20/17 09:15 (Tylenol) 650 mg Q6H PRN PO 10/12/17 12:00 (Narcan Inj) 0.4 mg UNSCH PRN IV PUSH 10/12/17 12:00 (Milk Of Magnesia Liq) 30 ml Q12H PRN PO 10/12/17 12:00 (Lactinex) 1 tab Q12HR PO 10/12/17 21:00 10/21/17 20:09 Pharmacy Profile Note 0 ml @ 0 mls/hr UNSCH PRN OTHER 10/12/17 12:00 Vancomycin HCl 1000 mg/Sodium Chloride 250 ml @ 250 mls/hr Q12H IV 10/13/17 00:00 10/22/17 00:00 (Aspirin Chew) 81 mg BID CHEW 10/12/17 21:00 10/21/17 20:09 (Aricept) 5 mg HS PO 10/12/17 21:00 10/21/17 20:09 (Lexapro) 5 mg DAILY PO 10/13/17 09:00 10/21/17 09:50 (Diabeta) 5 mg DAILY@0800 PO 10/13/17 08:00 10/21/17 08:48 (Cortef) 2.5 mg DAILY PO 10/13/17 09:00 10/21/17 09:51 (Synthroid) 100 mcg DAILY@0600 PO 10/13/17 06:00 10/22/17 05:37 (Prinivil) 10 mg DAILY PO 10/13/17 09:00 Future Hold 10/13/17 08:43 (Toprol Xl) 50 mg DAILY PO 10/13/17 09:00 10/21/17 09:52 (KCl) 20 meq DAILY PO 10/13/17 09:00 10/21/17 09:51 (Silvadene 1% Cream (50 Gm)) 1 applic DAILY PRN TOPICAL 10/12/17 14:30 (Flomax) 0.4 mg DAILY PO 10/13/17 09:00 10/21/17 09:50 (Pill Splitter) 1 ea UNSCH PRN OTHER 10/12/17 14:45 (Vasotec Inj) 2.5 mg Q6H PRN IV PUSH 10/12/17 15:00 10/13/17 06:34 (Catapres) 0.1 mg Q6H PRN PO 10/12/17 15:00 10/12/17 17:00 Diltiazem HCl 125 mg/Sodium Chloride 125 ml @ 5 mls/hr TITRATE PRN IV 10/13/17 04:15 10/13/17 14:07 (Cardizem) 60 mg Q6HR PO 10/14/17 12:00 10/22/17 05:37 (Xanax) 0.125 mg Q6H PRN PO 10/16/17 14:45 (Duoneb Neb) 1 ampule TID NEB NEB 10/18/17 14:00 10/21/17 20:00 (Diflucan) 200 mg DAILY PO 10/22/17 09:00 Lines PIV Past Medical History DM Hypertension Hyperlipidemia BPH obstructive uropathy s/p suprapubic catheter recurrent UTIs Hiatal hernia gastric ulcers hypothyroidism Past Surgical History Cataract extractions Tonsillectomy Cystoscopy with suprapubic catheter placement Gastric perforation repair Allergies: Coded Allergies: adhesive tape (Verified Allergy, Severe, Hives, 10/12/17) hydrocodone (Verified Allergy, Severe, HIVES, 10/12/17) Objective . Vital Signs Date Time Temp Pulse Resp B/P (MAP) Pulse Ox O2 Delivery O2 Flow Rate FiO2 10/22/17 07:30 96.5 73 18 124/70 (88) 91 10/22/17 05:00 75 10/22/17 04:20 98.2 74 18 120/63 (82) 95 10/22/17 04:00 74 10/22/17 03:00 74 10/22/17 02:00 76 10/22/17 01:00 72 10/22/17 00:11 98.2 76 18 117/65 (82) 95 10/22/17 00:00 77 10/21/17 23:49 95 Nasal Cannula 3.00 10/21/17 23:00 74 10/21/17 22:00 76 10/21/17 21:00 76 10/21/17 20:40 93 Nasal Cannula 3.00 10/21/17 20:11 98.0 72 18 123/63 (83) 95 10/21/17 20:00 74 10/21/17 19:00 74 10/21/17 18:02 74 10/21/17 17:00 67 10/21/17 16:20 98.2 74 18 110/60 (77) 92 10/21/17 16:00 73 10/21/17 15:00 80 10/21/17 14:00 74 10/21/17 13:00 73 10/21/17 12:09 98.0 74 18 102/50 (67) 94 10/21/17 12:00 66 10/21/17 11:00 70 . Laboratory Tests Test 10/21/17 06:06 10/22/17 08:25 White Blood Count 12.3 TH/MM3 14.1 TH/MM3 Red Blood Count 4.23 MIL/MM3 4.34 MIL/MM3 Hemoglobin 12.2 GM/DL 12.5 GM/DL Hematocrit 36.6 % 37.8 % Mean Corpuscular Volume 86.5 FL 87.2 FL Mean Corpuscular Hemoglobin 28.8 PG 28.8 PG Mean Corpuscular Hemoglobin Concent 33.3 % 33.0 % Red Cell Distribution Width 18.4 % 18.1 % Platelet Count 455 TH/MM3 468 TH/MM3 Mean Platelet Volume 7.4 FL 7.3 FL Neutrophils (%) (Auto) 71.2 % 71.9 % Lymphocytes (%) (Auto) 18.8 % 18.1 % Monocytes (%) (Auto) 6.2 % 6.4 % Eosinophils (%) (Auto) 3.3 % 3.1 % Basophils (%) (Auto) 0.5 % 0.5 % Neutrophils # (Auto) 8.8 TH/MM3 10.2 TH/MM3 Lymphocytes # (Auto) 2.3 TH/MM3 2.6 TH/MM3 Monocytes # (Auto) 0.8 TH/MM3 0.9 TH/MM3 Eosinophils # (Auto) 0.4 TH/MM3 0.4 TH/MM3 Basophils # (Auto) 0.1 TH/MM3 0.1 TH/MM3 CBC Comment DIFF FINAL DIFF FINAL Differential Comment Laboratory Tests Test 10/21/17 06:06 10/22/17 07:38 Blood Urea Nitrogen 27 MG/DL 25 MG/DL Creatinine 0.59 MG/DL 0.60 MG/DL Random Glucose 210 MG/DL 265 MG/DL Total Protein 6.0 GM/DL 6.3 GM/DL Albumin 1.8 GM/DL 2.0 GM/DL Calcium Level 8.2 MG/DL 8.3 MG/DL Alkaline Phosphatase 73 U/L 71 U/L Aspartate Amino Transf (AST/SGOT) 12 U/L 12 U/L Alanine Aminotransferase (ALT/SGPT) 10 U/L 11 U/L Total Bilirubin 0.2 MG/DL 0.2 MG/DL Sodium Level 137 MEQ/L 137 MEQ/L Potassium Level 4.4 MEQ/L 4.2 MEQ/L Chloride Level 100 MEQ/L 100 MEQ/L Carbon Dioxide Level 31.9 MEQ/L 33.3 MEQ/L Anion Gap 5 MEQ/L 4 MEQ/L Estimat Glomerular Filtration Rate 129 ML/MIN 127 ML/MIN Imaging Abdomen/Pelvis CT 10/15/17 0000 Signed Impressions: Service Date/Time: October 12:25 - CONCLUSION: 1. Large pneumothorax on the left. Chest tube likely needed. 2. Bibasilar consolidation and pleural effusions. 3. Cholelithiasis. 4. Right-sided hydronephrosis and hydroureter. Left-sided hydronephrosis has resolved. 5. Distal abdominal aortic aneurysm measuring 3.8 x 3.2 cm. 6. Large hernia abdominal wall containing multiple bowel loops. No signs of obstruction or strangulation 7. Massive enlargement of the prostate gland. 8. Hyperdense material within decompressed urinary bladder, can be thrombus. Kris Levin MD Head CT 10/14/17 0000 Signed Impressions: Service Date/Time: Saturday, October 14, 2017 05:16 - CONCLUSION: Stable noncontrast head CT. Emanuel Gandara MD Physical Exam GENERAL: awake and alert, NAD SKIN: Warm and dry. No generalized rash HEAD: Atraumatic. Normocephalic. No temporal wasting, or tenderness. EYES: [place] conjunctiva. No petechia or hemorrhage. Pupils equal, round and reactive to light. No scleral icterus. No injection or drainage. EARS, NOSE AND THROAT: Nose without bleeding or purulent nasal discharge. No sinus tenderness. Mucous membranes pink and moist. No oral lesions noted. NECK: Trachea midline. Supple and not tender, no meningeal signs CARDIOVASCULAR: Regular rate and rhythm. No murmurs, rubs or gallops heard. Decreased BS bases, CT on L RESPIRATORY: Clear to auscultation. Breath sounds equal bilaterally. No rales , wheezing or rhonchi ABDOMEN: Soft, non-tender, nondistended. Bowel sounds present and normoactive. No guarding. No rebound. No organomegaly. SPC site looks ok. He has reducible hernia in mid abdomen EXTREMITIES: No clubbing, cyanosis, or edema.No joint effusion, has good ROM. No calf tenderness. Well perfused and warm. NEUROLOGICAL: Awake and alert. Cranial nerves grossly intact. Motor grossly within normal limits. PSYCHIATRIC: Normal affect, calm and cooperative. 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
[2017-10-22] MEDS: glyBURIDE 5 MG TAB PO SCH (10:57)
[2017-10-22] MEDS: ASPIRIN 81 MG CHEW TAB CHEW SCH ×2 (10:57→21:00)
[2017-10-22] MEDS: POTASSIUM CHLORIDE 20 MEQ CONTROLLED RELEASE TAB PO SCH (10:58)
[2017-10-22] MEDS: METOPROLOL SUCCINATE 50 MG EXTENDED RELEASE TAB PO SCH (10:58)
[2017-10-22] MEDS: FLUCONAZOLE 100 MG TAB PO SCH (10:58)
[2017-10-22] MEDS: ESCITALOPRAM OXALATE 10 MG TAB PO SCH (10:58)
[2017-10-22] MEDS: TAMSULOSIN HCL 0.4 MG CAP PO SCH (10:58)
[2017-10-22] MEDS: HYDROCORTISONE 10 MG TAB PO SCH (10:58)
[2017-10-22] MEDS: LACTOBACILLUS ACIDOPHILUS TAB PO SCH ×2 (10:58→21:00)
--- NOTE | 2017-10-22 11:35 | HHI.PR ---
Subjective Remarks No complaints from the patient today. No pain. No nausea. No shortness of breath. Global weakness is present. Mild hypoglycemia this morning. Objective Vital Signs Date Time Temp Pulse Resp B/P (MAP) Pulse Ox O2 Delivery O2 Flow Rate FiO2 10/22/17 07:30 96.5 73 18 124/70 (88) 91 10/22/17 05:00 75 10/22/17 04:20 98.2 74 18 120/63 (82) 95 10/22/17 04:00 74 10/22/17 03:00 74 10/22/17 02:00 76 10/22/17 01:00 72 10/22/17 00:11 98.2 76 18 117/65 (82) 95 10/22/17 00:00 77 10/21/17 23:49 95 Nasal Cannula 3.00 10/21/17 23:00 74 10/21/17 22:00 76 10/21/17 21:00 76 10/21/17 20:40 93 Nasal Cannula 3.00 10/21/17 20:11 98.0 72 18 123/63 (83) 95 10/21/17 20:00 74 10/21/17 19:00 74 10/21/17 18:02 74 10/21/17 17:00 67 10/21/17 16:20 98.2 74 18 110/60 (77) 92 10/21/17 16:00 73 10/21/17 15:00 80 10/21/17 14:00 74 10/21/17 13:00 73 10/21/17 12:09 98.0 74 18 102/50 (67) 94 10/21/17 12:00 66 I/O 10/21/17 10/21/17 10/21/17 10/22/17 10/22/17 10/22/17 07:00 15:00 23:00 07:00 15:00 23:00 Intake Total 690 ml 520 ml 750 ml Output Total 1000 ml 760 ml 1150 ml Balance -310 ml -240 ml -400 ml Intake Oral 440 ml 520 ml 750 ml IV Total 250 ml Output Urine Total 1000 ml 750 ml 1150 ml Chest Tube Drainage Total 10 ml 0 ml # Bowel Movements 1 Result Diagram: 10/22/17 0825 10/22/17 0738 Objective Remarks GENERAL: NAD, A&Ox3 HEAD: Normocephalic. NECK: Supple, trachea midline. No lymphadenopathy. EYES: No scleral icterus. No injection or drainage. CARDIOVASCULAR: Regular rate and rhythm without murmurs, gallops, or rubs. RESPIRATORY: Breath sounds equal bilaterally. No accessory muscle use. GASTROINTESTINAL: Abdomen soft, non-tender, nondistended. MUSCULOSKELETAL: No cyanosis, or edema. Chest tube present at left side SKIN: Warm and dry. Stage 1 sacral/buttock wound NEURO: No focal neurological deficitis. A/P Problem List: (1) Hypoxia ICD Code: R09.02 - Hypoxemia Status: Acute (2) Pneumothorax ICD Code: J93.9 - Pneumothorax, unspecified (3) UTI (urinary tract infection) ICD Code: N39.0 - Urinary tract infection, site not specified Status: Acute (4) Sepsis ICD Code: A41.9 - Sepsis, unspecified organism Status: Resolved Assessment and Plan Assessment and Plan 89-year-old male admitted secondary to sepsis, UTI, and pneumothorax. Labs reviewed. No acute concerns on findings. Labs shows stability. Continue monitoring labs. Monitor for hypokalemia. Sepsis Resolved Complex UTI (MRSA/Yeast) Chronic suprapubic catheter Catheter exchange in the ER on 10/12/17 Continue vancomycin Continue Diflucan Urology following Bacteremia with MRSA Continue to monitor repeat blood culture Follow repeat blood cultures until negative Infectious disease following Congestive heart failure Baseline EF is 35% Continue baseline treatments Monitor closely for any fluid overload Chronic, pre-existing Pneumothorax, present at time of admit Chest tube present Pulmonology following Follow oxygen saturations Maintain oxygen saturations greater than 90% Generalized weakness Generalized debility Physical therapy A-fib with RVR Resolved Continue metoprolol Continue Cardizem Follow on telemetry Diabetes mellitus type 2 Follow blood sugars Insulin sliding scale Diabetic diet Hypertension Continue metoprolol Continue Cardizem Lisinopril discontinued Follow blood pressures Dementia Mild Continue Aricept Hypothyroidism Continue Synthroid Follows in outpatient buttock/sacral wound (stage 1) Superficial skin irritation Wound care following Air mattress present DVT Prophylaxis Phillip Alvarez MD Oct 22, 2017 11:35
[2017-10-22] MEDS: VANCOMYCIN 1,000 MG/NS 250 ML IV SCH ×4 (12:00)
--- NOTE | 2017-10-22 17:08 | HHI.HCPN ---
Reason for visit a. To assist with evaluation and management of symptoms including: Decreased appetite, confusion, debility, dyspnea b. To assist medical decision maker(s) with: better understanding of current medical conditions; weighing benefits/burdens of medical treatment options; making medical treatment decisions. . Subjective/Interval History Follow up visit for symptom management and clarification of goals. Mr. Courtney was seen and assessed in room 243. He is becoming progressively more alert, although he has some degree of dementia at baseline. Patient denying any shortness of breath on exam. Pulmonology was consulted on due to worsening respiratory distress with persistent large left-sided pneumothorax requiring chest tube placement. CT chest on 10/20/2017 showing persistent left sided pneumothorax and small bilateral pleural effusions with concomitant bibasilar atelectatic changes. A follow-up chest x-ray today 2016 showed slight decrease in the size of left pneumothorax and stable right medial lower lung infiltrate. Afebrile. WBC remains elevated at 14.1 Initial urine and blood culture growing MRSA. Follow-up blood culture remains negative. Follow-up urine culture growing Shaila Glabrata. NAYELY was negative for vegetation. Patient is on Vancomycin and Diflucan; Plan continue IV vancomycin 14 days through 2016. Infectious disease will continue to follow this patient, considering prophylactic Bactrim DS for recurrent UTI after completion of his IV antibiotic. Family has decided to proceed with SNF placement for rehabilitation. They may consider transitioning to comfort focused care in the future if the patient fails rehabilitation or has ongoing complications and decline. Case management has spoke with the patient's daughter and is assisting with discharge planning. . Advance Directives Living Will: Copy in medical record Health Care Surrogate: Copy in medical record Advance Directive Specifics Date completed: 05/23/2015 . Health Care Surrogate(s): Francisca Veliz is the designated [facility] decision-maker. Francisca Monet has been designated as the alternate [facility] decision-maker. . Documented care wishes: The patient completed a standard living will on 05/23/15 stating he wishes that life prolonging procedures be withheld or withdrawn in the event that 2 physicians determine there is no reasonable medical probability of recovery from a terminal condition, an end-stage condition or if he is in a permanent vegetative state. At that time, he wishes to be allowed to peacefully and naturally with only the administration of medication or performance of procedures deemed necessary to provide him comfort. . Significant change in goals: SNF placement for rehabilitation . Objective Vital Signs Date Time Temp Pulse Resp B/P (MAP) Pulse Ox O2 Delivery O2 Flow Rate FiO2 10/22/17 14:00 71 10/22/17 13:00 68 10/22/17 12:00 96.8 63 18 108/56 (73) 93 10/22/17 12:00 60 10/22/17 11:00 66 10/22/17 10:00 63 10/22/17 09:00 77 10/22/17 08:00 60 10/22/17 07:30 96.5 73 18 124/70 (88) 91 10/22/17 07:00 95 Nasal Cannula 3.00 10/22/17 05:00 75 10/22/17 04:20 98.2 74 18 120/63 (82) 95 10/22/17 04:00 74 10/22/17 03:00 74 10/22/17 02:00 76 10/22/17 01:00 72 10/22/17 00:11 98.2 76 18 117/65 (82) 95 10/22/17 00:00 77 10/21/17 23:49 95 Nasal Cannula 3.00 10/21/17 23:00 74 10/21/17 22:00 76 10/21/17 21:00 76 10/21/17 20:40 93 Nasal Cannula 3.00 10/21/17 20:11 98.0 72 18 123/63 (83) 95 10/21/17 20:00 74 10/21/17 19:00 74 10/21/17 18:02 74 10/21/17 17:00 67 Intake & Output 10/22/17 10/22/17 07:00 19:00 Intake Total 750 ml Output Total 1150 ml Balance -400 ml Intake Oral 750 ml Output Urine Total 1150 ml Chest Tube Drainage Total 0 ml Physical Exam CONSTITUTIONAL/GENERAL: This is a frail, elderly male patient in no acute distress. TUBES/LINES/DRAINS: Suprapubic catheter, PIV x 2, chest tube SKIN: Skin is thin and fragile. Skin temperature appropriate. Not diaphoretic. Ecchymosis on upper extremities bilaterally. HEAD: Atraumatic. Normocephalic. EYES: Pupils equal and round and reactive. No scleral icterus. No injection or drainage. Fundi not examined. ENT: Hearing grossly normal. Nose without bleeding or purulent drainage. NECK: Trachea midline. CARDIOVASCULAR: On his rhythm No Murmurs, gallops, or rubs. No JVD. Peripheral pulses symmetric. RESPIRATORY/CHEST: Symmetric, unlabored respirations. Clear to auscultation. Breath sounds diminished bilaterally. No wheezes, rales, or rhonchi. Left- sided chest tube in place with minimal output. GASTROINTESTINAL: Abdomen soft, non-tender, nondistended. No guarding. Bowel sounds present. GENITOURINARY: Without palpable bladder distension. Suprapubic catheter in place MUSCULOSKELETAL: Extremities without clubbing, cyanosis, or edema. LYMPHATICS: No palpable cervical or supraclavicular adenopathy. NEUROLOGICAL: Engaged in conversation. Responds appropriately to simple questions. Follows commands. PSYCHIATRIC: No obvious anxiety/depression. . Diagnostic Tests Laboratory Laboratory Tests Test 10/20/17 06:40 10/21/17 06:06 10/22/17 07:38 10/22/17 08:25 White Blood Count 12.9 TH/MM3 (4.0-11.0) 12.3 TH/MM3 (4.0-11.0) 14.1 TH/MM3 (4.0-11.0) Red Blood Count 4.58 MIL/MM3 (4.50-5.90) 4.23 MIL/MM3 (4.50-5.90) 4.34 MIL/MM3 (4.50-5.90) Hemoglobin 13.3 GM/DL (13.0-17.0) 12.2 GM/DL (13.0-17.0) 12.5 GM/DL (13.0-17.0) Hematocrit 40.1 % (39.0-51.0) 36.6 % (39.0-51.0) 37.8 % (39.0-51.0) Mean Corpuscular Volume 87.5 FL (80.0-100.0) 86.5 FL (80.0-100.0) 87.2 FL (80.0-100.0) Mean Corpuscular Hemoglobin 29.0 PG (27.0-34.0) 28.8 PG (27.0-34.0) 28.8 PG (27.0-34.0) Mean Corpuscular Hemoglobin Concent 33.2 % (32.0-36.0) 33.3 % (32.0-36.0) 33.0 % (32.0-36.0) Red Cell Distribution Width 18.3 % (11.6-17.2) 18.4 % (11.6-17.2) 18.1 % (11.6-17.2) Platelet Count 448 TH/MM3 (150-450) 455 TH/MM3 (150-450) 468 TH/MM3 (150-450) Mean Platelet Volume 7.6 FL (7.0-11.0) 7.4 FL (7.0-11.0) 7.3 FL (7.0-11.0) Neutrophils (%) (Auto) 69.8 % (16.0-70.0) 71.2 % (16.0-70.0) 71.9 % (16.0-70.0) Lymphocytes (%) (Auto) 19.8 % (9.0-44.0) 18.8 % (9.0-44.0) 18.1 % (9.0-44.0) Monocytes (%) (Auto) 6.3 % (0.0-8.0) 6.2 % (0.0-8.0) 6.4 % (0.0-8.0) Eosinophils (%) (Auto) 3.8 % (0.0-4.0) 3.3 % (0.0-4.0) 3.1 % (0.0-4.0) Basophils (%) (Auto) 0.3 % (0.0-2.0) 0.5 % (0.0-2.0) 0.5 % (0.0-2.0) Neutrophils # (Auto) 9.0 TH/MM3 (1.8-7.7) 8.8 TH/MM3 (1.8-7.7) 10.2 TH/MM3 (1.8-7.7) Lymphocytes # (Auto) 2.6 TH/MM3 (1.0-4.8) 2.3 TH/MM3 (1.0-4.8) 2.6 TH/MM3 (1.0-4.8) Monocytes # (Auto) 0.8 TH/MM3 (0-0.9) 0.8 TH/MM3 (0-0.9) 0.9 TH/MM3 (0-0.9) Eosinophils # (Auto) 0.5 TH/MM3 (0-0.4) 0.4 TH/MM3 (0-0.4) 0.4 TH/MM3 (0-0.4) Basophils # (Auto) 0.0 TH/MM3 (0-0.2) 0.1 TH/MM3 (0-0.2) 0.1 TH/MM3 (0-0.2) CBC Comment DIFF FINAL DIFF FINAL DIFF FINAL Differential Comment Blood Urea Nitrogen 17 MG/DL (7-18) 27 MG/DL (7-18) 25 MG/DL (7-18) Creatinine 0.45 MG/DL (0.60-1.30) 0.59 MG/DL (0.60-1.30) 0.60 MG/DL (0.60-1.30) Random Glucose 144 MG/DL (74-106) 210 MG/DL (74-106) 265 MG/DL (74-106) Total Protein 6.3 GM/DL (6.4-8.2) 6.0 GM/DL (6.4-8.2) 6.3 GM/DL (6.4-8.2) Albumin 2.0 GM/DL (3.4-5.0) 1.8 GM/DL (3.4-5.0) 2.0 GM/DL (3.4-5.0) Calcium Level 8.3 MG/DL (8.5-10.1) 8.2 MG/DL (8.5-10.1) 8.3 MG/DL (8.5-10.1) Alkaline Phosphatase 66 U/L (45-117) 73 U/L (45-117) 71 U/L (45-117) Aspartate Amino Transf (AST/SGOT) 12 U/L (15-37) 12 U/L (15-37) 12 U/L (15-37) Alanine Aminotransferase (ALT/SGPT) 10 U/L (12-78) 10 U/L (12-78) 11 U/L (12-78) Total Bilirubin 0.3 MG/DL (0.2-1.0) 0.2 MG/DL (0.2-1.0) 0.2 MG/DL (0.2-1.0) Sodium Level 138 MEQ/L (136-145) 137 MEQ/L (136-145) 137 MEQ/L (136-145) Potassium Level 3.4 MEQ/L (3.5-5.1) 4.4 MEQ/L (3.5-5.1) 4.2 MEQ/L (3.5-5.1) Chloride Level 99 MEQ/L (98-107) 100 MEQ/L (98-107) 100 MEQ/L (98-107) Carbon Dioxide Level 34.3 MEQ/L (21.0-32.0) 31.9 MEQ/L (21.0-32.0) 33.3 MEQ/L (21.0-32.0) Anion Gap 5 MEQ/L (5-15) 5 MEQ/L (5-15) 4 MEQ/L (5-15) Estimat Glomerular Filtration Rate 177 ML/MIN (>89) 129 ML/MIN (>89) 127 ML/MIN (>89) . Result Diagram: 10/22/17 0825 10/22/17 0738 Imaging Last 72 hours Impressions Chest X-Ray 10/22/17 0600 Signed Impressions: Service Date/Time: Sunday, October 22, 2017 02:40 - CONCLUSION: 1. Slight decrease in the size of the left pneumothorax with chest drainage catheter in place. 2. Stable right medial lower lung infiltrate. Nathaniel Erazo MD Chest X-Ray 10/20/17 0900 Signed Impressions: Service Date/Time: Friday, October 20, 2017 08:55 - CONCLUSION: Persistent small left pneumothorax. Fabiano Peck MD Chest CT 10/20/17 0000 Signed Impressions: Service Date/Time: Friday, October 20, 2017 15:54 - CONCLUSION: 1. [place] loop thoracostomy tube in the left hemithorax is positioned posteriorly in the small left pleural effusion. 2. Persistent left-sided pneumothorax. Would consider a surgical thoracostomy tube more anteriorly to treat the same. 3. Right apical bleb. Small bilateral pleural effusions with concomitant bibasilar atelectatic changes. 4. Cholelithiasis. Nash Armijo MD . Procedures 10/16/2017: Left-sided chest tube placement . Assessment and Plan Disease Oriented Problem List: (1) Dementia (2) Hypothyroidism (3) Sepsis (4) UTI (urinary tract infection) (5) Hypertension (6) Diabetes mellitus Symptom Scale: (1) Decrease in appetite (2) Debility (3) Confusion Pertinent Non-Medical Issues Psychosocial:Patient is originally from [place]. He lived in [place], [place] for many years. 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 His in 2004. The patient has 5 adult children. Two daughters live in [place]; Two sons live in [place] and one son who lives in [place] and is estranged from the family. The patient's daughter states "being cognitively sharp" is probably the most important thing to her father. Spiritual: [employer] Legal: HCS and Living will completed on 05/23/2015. Francisca Veliz is the designated [facility] decision-maker. Francisca Monet has been designated as the alternate [facility] decision-maker. The patient completed a standard living will on stating he wishes that life prolonging procedures be withheld or withdrawn in the event that 2 physicians determine there is no reasonable medical probability of recovery from a terminal condition, an end-stage condition or if he is in a permanent vegetative state. At that time, he wishes to be allowed to peacefully and naturally with only the administration of medication or performance of procedures deemed necessary to provide him comfort. Ethical issues impacting care: No known ethical issues impacting care at this time. . Important Contacts Lola Veliz, daughter: [phone] . Prognosis Mr. Courtney is an 89 year old man with a complex medical history who as significantly declined in the past 6 moths. He has had multiple hospitalizations for recurrent UTIs, sepsis, pneumonia, C. difficile and bladder outlet obstruction from BPH requiring a suprapubic catheter. The patient has become progressively more weak, lethargic and confused. He has had a reported weight loss of 50 pounds in the past year and is now too weak to ambulate. Given this patient's advanced age, significant loss in functional status and recurrent infections, his over all prognosis is poor and he is hospice appropriate should his medical treatment goals become comfort focused. . Code Status: No Code Plan * NO CODE- DNR/DNI * Community DNR completed and placed in chart. * Decision-making: Patient currently does not have insight or judgment related to his clinical conditions; it is unclear if the patient will regain capacity. Francisca Wallen is the designated [facility] decision-maker. Francisca Monet has been designated as the alternate [facility] decision-maker. * The patient completed a standard living will on 05/23/15 stating he wishes that life prolonging procedures be withheld or withdrawn in the event that 2 physicians determine there is no reasonable medical probability of recovery from a terminal condition, an end-stage condition or if he is in a permanent vegetative state. At that time, he wishes to be allowed to peacefully and naturally with only the administration of medication or performance of procedures deemed necessary to provide him comfort. * GOAL: Aggressive goals up to the point of cardiopulmonary resuscitation. Discharge plan for placement at SNF for rehabilitation. * Symptom management-decreased appetite: Decreased appetite with associated weight loss reported. Patient's daughter reports a 50 pound weight loss in the past 12 months. BMI: 22.5; albumin 2.0 * Symptom management-confusion: Patient has some degree of dementia at baseline and is on Aricept at home. Confusion slowly improving. Encephalopathy is likely multifactorial; contributing factors include recent hospitalization, sepsis and underlying dementia. Patient is on Aricept at home. CT head on 10/14 was stable. Will continue to monitor patient closely to ensure safety and reorient patient as appropriate. * Symptom management-debility: Physical therapy continues to follow this patient. Patient was reluctant to speak in therapy today; he become argumentative when he cannot transfer the way he wants to. Patient was able to sit on the edge of the bed. Patient is significantly deconditioned; plan for SNF placement for rehabilitation upon discharge. Case management assisting. * Symptom management- dyspnea: Patient denies dyspnea on exam today. Pulmonology was consulted on 10/16/2017 due to worsening respiratory distress with persistent large left-sided pneumothorax requiring chest tube placement. CT chest on 10/20/2017 showing persistent left sided pneumothorax and small bilateral pleural effusions with concomitant bibasilar atelectatic changes. Follow-up chest x-ray today 10/22/17 showed a slight decrease in the size of left pneumothorax and a stable right medial lower lung infiltrate. * Palliative care will continue to follow this patient throughout his hospitalization to establish trust, assist with symptom management and clarification of medical treatment goals. . Attestation To help prompt me to consider important information that might be impacting today's encounter and assessment, information from prior notes written by myself or my colleagues may have been "brought forward" into today's note. My signature on this note, however, is an attestation that I personally performed the exam, history, and/or decision-making noted today, and, unless otherwise indicated, the interactions with patient, family, and staff as well as the review of records all occurred today. I also attest that the listed assessment and stated plan reflect my best clinical judgment today based on the combination of historical information, prior notes, and today's exam/ interactions. When time spent is documented, it refers only to time spent today by the signer, or if indicated, combined time spent today by collaborating physician/nurse practitioner. . Nati Concepcion Oct 22, 2017 17:08
--- NOTE | 2017-10-22 17:49 | HHI.PR ---
Subjective Remarks Doing better. has a Left chest tube still with a small left Pneumothorax.Drained only 30 CC today No fever. On antibiotics per ID. Objective Vital Signs Date Time Temp Pulse Resp B/P (MAP) Pulse Ox O2 Delivery O2 Flow Rate FiO2 10/22/17 14:00 71 10/22/17 13:00 68 10/22/17 12:00 96.8 63 18 108/56 (73) 93 10/22/17 12:00 60 10/22/17 11:00 66 10/22/17 10:00 63 10/22/17 09:00 77 10/22/17 08:00 60 10/22/17 07:30 96.5 73 18 124/70 (88) 91 10/22/17 07:00 95 Nasal Cannula 3.00 10/22/17 05:00 75 10/22/17 04:20 98.2 74 18 120/63 (82) 95 10/22/17 04:00 74 10/22/17 03:00 74 10/22/17 02:00 76 10/22/17 01:00 72 10/22/17 00:11 98.2 76 18 117/65 (82) 95 10/22/17 00:00 77 10/21/17 23:49 95 Nasal Cannula 3.00 10/21/17 23:00 74 10/21/17 22:00 76 10/21/17 21:00 76 10/21/17 20:40 93 Nasal Cannula 3.00 10/21/17 20:11 98.0 72 18 123/63 (83) 95 10/21/17 20:00 74 10/21/17 19:00 74 10/21/17 18:02 74 I/O 10/21/17 10/21/17 10/21/17 10/22/17 10/22/17 10/22/17 07:00 15:00 23:00 07:00 15:00 23:00 Intake Total 690 ml 520 ml 750 ml Output Total 1000 ml 760 ml 1150 ml Balance -310 ml -240 ml -400 ml Intake Oral 440 ml 520 ml 750 ml IV Total 250 ml Output Urine Total 1000 ml 750 ml 1150 ml Chest Tube Drainage Total 10 ml 0 ml # Bowel Movements 1 Result Diagram: 10/22/17 0825 10/22/17 0738 Objective Remarks GENERAL: This is a thinly built elderly man, in bed pale and not dyspneic. HEENT: Head normocephalic. Pupils are reactive. Tongue is dry. Throat clear. NECK: Supple. No venous distension. No thyromegaly. CHEST: Equal movements with distant breath sounds. Occasional left basilar crackles heard. HEART: The heart sounds are irregular. S1 and S2. No murmur. No S3. ABDOMEN: Soft, protuberant. No masses, no organomegaly or tenderness. Bowel sounds are active. EXTREMITIES: No edema. Peripheral pulses are diminished. Reflexes are 1+. There is muscle wasting of the extremities. The patient does move his extremities well. Babinski negative. SKIN: No lesions observed. Assessment and Plan Assessment and Plan IMPRESSION 1. Large left pneumothorax with compressive atelectasis in left lung. 2. UTI and sepsis. 3. Basilar pneumonia. 4. History of hypertension. 5. Diabetes mellitus. 6. Altered mental status. Plan : 1. Clamp Chest tube and Get CXR in am 2. Labs in am 3. Cont Duoneb nebs qid. 4. Cont Antibiotics per ID. 5. IS at bedside qid, 6. Will D/C Chest tube if CXR stable Blaze Russ MD Oct 22, 2017 17:49
[2017-10-22] MEDS: DONEPEZIL HCL 5 MG TAB PO SCH (21:00)
[2017-10-23] VITALS (18 sets, daily range): BP systolic 97–141; BP diastolic 57–75; PULSE 54–85; RESP 16–18; TEMP 97.4–98.6; O2SAT 91–98
[2017-10-23] MEDS: LEVOTHYROXINE SODIUM 100 MCG TAB PO SCH (05:29)
[2017-10-23] MEDS: DILTIAZEM HCL 60 MG TAB PO SCH ×4 (05:29→17:04)
[2017-10-23 06:17] LABS: HEMATOCRIT 39.1 % (39.0-51.0); MEAN CELL VOLUME 86.7 FL (80.0-100.0); MEAN CORPUSCULAR HEMOGLOBIN 28.5 PG (27.0-34.0); MEAN CORPUSCULAR HGB CONC 32.9 % (32.0-36.0); PLATELET COUNT 499 TH/MM3 (150-450); RED BLOOD COUNT 4.52 MIL/MM3 (4.50-5.90); RED CELL DISTRIBUTION WIDTH 18.5 % (11.6-17.2); REVIEW FLAG FINAL; WHITE BLOOD COUNT 11.2 TH/MM3 (4.0-11.0)
--- NOTE | 2017-10-23 06:18 | RADRPT ---
EXAM DATE/TIME: 10/23/2017 05:00 [facility] COMPARISON: CHEST SINGLE AP, October 22, 2017, 2:40. INDICATIONS : Shortness of breath, possible pneumothorax. MEDICAL HISTORY : Hypertension. Hiatal hernia. Diabetes mellitus type II. SURGICAL HISTORY : None. ENCOUNTER: Subsequent ACUITY: 4 - 6 days PAIN SCORE: 0/10 LOCATION: Left chest FINDINGS: Left chest drainage pigtail catheter stable in position. Reduction in size of left lateral pneumotho rax to 9 mm (previously measured 13 mm). Persistent infiltrates in the medial right lower lung and m edial left lower lung. The remainder of the lungs are clear. Both hemidiaphragms are fairly well de lineated. CONCLUSION: 1. Mild reduction in size of left pneumothorax. 2. Persistent patchy bilateral lower lung infiltrates. Nathaniel Erazo MD on October 23, 2017 at 6:15 Board Certified Radiologist. This report was verified electronically.
[2017-10-23 07:01] LABS: BICARBONATE 32.7 MEQ/L (21.0-32.0); POTASSIUM 3.9 MEQ/L (3.5-5.1)
[2017-10-23] MEDS: INSULIN ASPART SUPPLEMENTAL SCALE SQ SCH ×4 (08:00→19:24)
[2017-10-23] MEDS: SODIUM CHLORIDE 0.9% FLUSH 10 ML FLUSH IV FLUSH SCH ×2 (09:00→19:23)
[2017-10-23] MEDS: ESCITALOPRAM OXALATE 10 MG TAB PO SCH (09:44)
[2017-10-23] MEDS: FLUCONAZOLE 100 MG TAB PO SCH (09:44)
[2017-10-23] MEDS: METOPROLOL SUCCINATE 50 MG EXTENDED RELEASE TAB PO SCH (09:44)
[2017-10-23] MEDS: glyBURIDE 5 MG TAB PO SCH (09:45)
[2017-10-23] MEDS: TAMSULOSIN HCL 0.4 MG CAP PO SCH (09:45)
[2017-10-23] MEDS: LACTOBACILLUS ACIDOPHILUS TAB PO SCH ×2 (09:45→19:24)
[2017-10-23] MEDS: ASPIRIN 81 MG CHEW TAB CHEW SCH ×2 (09:45→19:23)
[2017-10-23] MEDS: HYDROCORTISONE 10 MG TAB PO SCH (09:45)
[2017-10-23] MEDS: POTASSIUM CHLORIDE 20 MEQ CONTROLLED RELEASE TAB PO SCH (09:46)
[2017-10-23] MEDS: VANCOMYCIN 1,000 MG/NS 250 ML IV SCH ×4 (12:00)
--- NOTE | 2017-10-23 13:04 | HHI.PR ---
Subjective Remarks Patient denies abdominal pain, chest pain, shortness of breath. Objective Vitals Vital Signs Date Time Temp Pulse Resp B/P (MAP) Pulse Ox O2 Delivery O2 Flow Rate FiO2 10/23/17 12:00 85 10/23/17 12:00 97.8 75 16 141/75 (97) 95 10/23/17 08:00 70 10/23/17 08:00 94 10/23/17 07:30 97.4 72 18 126/64 (84) 91 10/23/17 07:00 91 Nasal Cannula 3.00 10/23/17 05:00 98.6 73 18 118/74 (89) 98 10/23/17 03:00 78 10/22/17 23:45 98.6 77 18 116/76 (89) 98 10/22/17 23:00 76 10/22/17 20:35 98.6 75 18 122/65 (84) 98 10/22/17 20:32 95 Nasal Cannula 3.00 10/22/17 19:00 86 10/22/17 18:00 73 10/22/17 17:00 80 10/22/17 16:00 96.5 73 18 124/70 (88) 91 10/22/17 16:00 73 10/22/17 15:00 78 10/22/17 14:00 71 I/O 10/22/17 10/22/17 10/22/17 10/23/17 10/23/17 10/23/17 06:59 14:59 22:59 06:59 14:59 22:59 Intake Total 750 ml 600 ml Output Total 1150 ml 20 ml 905 ml Balance -400 ml 580 ml -905 ml Intake Oral 750 ml 600 ml Output Urine Total 1150 ml 900 ml Chest Tube Drainage Total 0 ml 20 ml 5 ml # Bowel Movements 1 Result Diagram: 10/23/1736 10/23/17535 Objective Remarks GENERAL: Well-nourished, well-developed elderly male patient. SKIN: Warm and dry. HEAD: Normocephalic. EYES: No scleral icterus. No injection or drainage. NECK: Supple, trachea midline. No JVD or lymphadenopathy. CARDIOVASCULAR: Regular rate and rhythm without murmurs, gallops, or rubs. Chest tube to left chest. RESPIRATORY: Breath sounds equal bilaterally. No accessory muscle use. GASTROINTESTINAL: Abdomen soft, non-tender, nondistended. Suprapubic catheter present. EXTREMITIES: No cyanosis, or edema. NEUROLOGICAL: Awake, alert, and oriented to self, place. Non-focal. A/P Problem List: (1) Sepsis ICD Code: A41.9 - Sepsis, unspecified organism Status: Resolved (2) UTI (urinary tract infection) ICD Code: N39.0 - Urinary tract infection, site not specified Status: Acute (3) Suprapubic catheter dysfunction ICD Code: T83.010A - Breakdown (mechanical) of cystostomy catheter, initial encounter (4) Hypertension ICD Code: I10 - Essential (primary) hypertension Status: Chronic (5) Diabetes mellitus ICD Code: E11.9 - Type 2 diabetes mellitus without complications Status: Chronic (6) MRSA bacteremia ICD Code: R78.81 - Bacteremia (7) Debility ICD Code: R53.81 - Other malaise (8) Dementia ICD Code: F03.90 - Unspecified dementia without behavioral disturbance (9) Pneumothorax ICD Code: J93.9 - Pneumothorax, unspecified Assessment and Plan 89-year-old male Complex UTI (MRSA/Yeast), sepsis Chronic suprapubic catheter due to BPH Catheter exchange in the ER on 10/12/17 Continue vancomycin until October 27 days Continue Diflucan Urology (Dr. Armstrong) and infectious disease (Dr. Plasencia) following Right hydronephrosis - however stable Cr, may be chronic VSS Bacteremia with MRSA bacteremia and in the blood culture Continue to monitor repeat blood culture Follow repeat blood cultures until negative Infectious disease following Congestive heart failure chronic systolic Baseline EF is 35% Continue baseline treatments - metoprolol and will resume lisinopril Monitor closely for any fluid overload Chronic, pre-existing Pneumothorax, present at time of admit Chest tube present - chest x-ray today shows mild reduction in size of left pneumothorax and persistent patchy bilateral lower infiltrates Pulmonology following Dr. Marroquin Follow oxygen saturations Maintain oxygen saturations greater than 90% Generalized weakness Generalized debility Physical therapy A-fib with RVR Resolved - appears to have been a new onset, no reported history of Continue metoprolol Continue Cardizem Follow on telemetry Avoiding aspirin due to history of gastric ulcers 2-D echocardiogram with EF 30-35%, mild aortic valve regurgitation, mildly dilated descending thoracic aorta Check TSH - on synthroid Diabetes mellitus type 2 Follow blood sugars - 100- 300s Insulin sliding scale, will start Levemir 5 units subcutaneous at bedtime Diabetic diet Hypertension Continue metoprolol Continue Cardizem Follow blood pressures Dementia with acute metabolic encephalopathy Continue Aricept, reorientation Hypothyroidism Continue Synthroid Check TSH buttock/sacral wound (stage 1) Superficial skin irritation Wound care following Air mattress present DVT Prophylaxis SCDs DNR status Palliative care following DC plans to SNF when stable Carie Boateng MD Oct 23, 2017 13:04
--- NOTE | 2017-10-23 19:06 | HHI.PR ---
Subjective Remarks Doing better. has a Left chest tube still with a small left Pneumothorax. No fever. On antibiotics per ID. Feels better. Objective Vital Signs Date Time Temp Pulse Resp B/P (MAP) Pulse Ox O2 Delivery O2 Flow Rate FiO2 10/23/17 18:00 68 10/23/17 17:00 67 10/23/17 16:00 70 10/23/17 16:00 98.2 58 16 110/73 (85) 95 10/23/17 15:00 61 10/23/17 14:00 63 10/23/17 13:47 95 Nasal Cannula 3.00 10/23/17 13:00 76 10/23/17 12:00 85 10/23/17 12:00 97.8 75 16 141/75 (97) 95 10/23/17 08:00 70 10/23/17 08:00 94 10/23/17 07:30 97.4 72 18 126/64 (84) 91 10/23/17 07:00 91 Nasal Cannula 3.00 10/23/17 05:00 98.6 73 18 118/74 (89) 98 10/23/17 03:00 78 10/22/17 23:45 98.6 77 18 116/76 (89) 98 10/22/17 23:00 76 10/22/17 20:35 98.6 75 18 122/65 (84) 98 10/22/17 20:32 95 Nasal Cannula 3.00 I/O 10/22/17 10/22/17 10/22/17 10/23/17 10/23/17 10/23/17 07:00 15:00 23:00 07:00 15:00 23:00 Intake Total 750 ml 600 ml 870 ml Output Total 1150 ml 20 ml 905 ml 930 ml Balance -400 ml 580 ml -905 ml -60 ml Intake Oral 750 ml 600 ml 620 ml IV Total 250 ml Output Urine Total 1150 ml 900 ml 900 ml Chest Tube Drainage Total 0 ml 20 ml 5 ml 30 ml # Bowel Movements 1 1 Result Diagram: 10/23/1736 10/23/1736 Objective Remarks GENERAL: This is a thinly built elderly man, not dyspneic. HEENT: Head normocephalic. Pupils are reactive. Tongue is dry. Throat clear. NECK: Supple. No venous distension. No thyromegaly. CHEST: Equal movements with distant breath sounds. Occasional basilar crackles heard. HEART: The heart sounds are irregular. S1 and S2. No murmur. No S3. ABDOMEN: Soft, protuberant. No masses, no organomegaly or tenderness. Bowel sounds are active. EXTREMITIES: No edema. Peripheral pulses are diminished. Reflexes are 1+. There is muscle wasting of the extremities. The patient does move his extremities well. Babinski negative. SKIN: No lesions observed. Assessment and Plan Assessment and Plan IMPRESSION 1. Large left pneumothorax with compressive atelectasis in left lung. 2. UTI and sepsis. 3. Basilar pneumonia. 4. History of hypertension. 5. Diabetes mellitus. 6. Altered mental status. Plan : 1. Clamp Chest tube and rpt CXR in am 2. BMP. 3. Cont Duoneb nebs qid. 4. Cont Antibiotics per ID. 5. IS at bedside qid, 6. Will D/C Chest tube if CXR stable 7. PT evaluation Blaze Russ MD Oct 23, 2017 19:06
[2017-10-23] MEDS: DONEPEZIL HCL 5 MG TAB PO SCH (19:23)
[2017-10-23] MEDS: INSULIN DETEMIR 100 UNITS/ML VIAL SQ SCH (19:24)
[2017-10-24] VITALS (27 sets, daily range): BP systolic 110–135; BP diastolic 52–71; PULSE 55–76; RESP 16–18; TEMP 97.4–98.6; O2SAT 95–98
[2017-10-24] MEDS: DILTIAZEM HCL 60 MG TAB PO SCH ×5 (05:14→23:42)
[2017-10-24] MEDS: LEVOTHYROXINE SODIUM 100 MCG TAB PO SCH (05:14)
--- NOTE | 2017-10-24 06:24 | RADRPT ---
EXAM DATE/TIME: 10/24/2017 05:43 [place] COMPARISON: CHEST SINGLE AP, October 23, 2017, 5:00. INDICATIONS : Evalaute for pneumothorax. MEDICAL HISTORY : Hypertension. Hiatal hernia. Diabetes mellitus type II. SURGICAL HISTORY : None. ENCOUNTER: Subsequent ACUITY: 1 week PAIN SCORE: Non-responsive. LOCATION: chest FINDINGS: Single AP view of the chest. Left-sided pigtail chest catheter remains in place. Mild patchy opacity at the lung bases unchanged. Small lateral left lung base pneumothorax slightly decreased in size glen suring 7 mm. CONCLUSION: 1. Slight decrease in size of left basilar pneumothorax. 2. No change in mild patchy bilateral pulmonary opacity. Jenaro Wright MD on October 24, 2017 at 6:21 Board Certified Radiologist. This report was verified electronically.
[2017-10-24 07:29] LABS: AUTOMATED NEUTROPHIL # 8.2 TH/MM3 (1.8-7.7); BASOPHIL % 0.4 % (0.0-2.0); EOSINOPHIL # 0.3 TH/MM3 (0-0.4); EOSINOPHIL % 2.6 % (0.0-4.0); HEMO FLAGS DIFF FINAL; LYMPH % 19.7 % (9.0-44.0); LYMPHOCYTE # 2.3 TH/MM3 (1.0-4.8); MEAN CELL VOLUME 86.8 FL (80.0-100.0); MEAN CORPUSCULAR HEMOGLOBIN 28.4 PG (27.0-34.0); MEAN CORPUSCULAR HGB CONC 32.8 % (32.0-36.0); MONO % 7.4 % (0.0-8.0); NEUT % 69.9 % (16.0-70.0); PLATELET COUNT 492 TH/MM3 (150-450); RED BLOOD COUNT 4.26 MIL/MM3 (4.50-5.90); RED CELL DISTRIBUTION WIDTH 18.5 % (11.6-17.2); WHITE BLOOD COUNT 11.8 TH/MM3 (4.0-11.0)
[2017-10-24 07:32] LABS: BICARBONATE 30.9 MEQ/L (21.0-32.0); POTASSIUM 3.8 MEQ/L (3.5-5.1)
[2017-10-24] MEDS: glyBURIDE 5 MG TAB PO SCH (09:57)
[2017-10-24] MEDS: ASPIRIN 81 MG CHEW TAB CHEW SCH ×2 (09:58→23:29)
[2017-10-24] MEDS: INSULIN ASPART SUPPLEMENTAL SCALE SQ SCH ×4 (09:58→23:43)
[2017-10-24] MEDS: SODIUM CHLORIDE 0.9% FLUSH 10 ML FLUSH IV FLUSH SCH ×2 (09:58→23:29)
[2017-10-24] MEDS: FLUCONAZOLE 100 MG TAB PO SCH (09:59)
[2017-10-24] MEDS: HYDROCORTISONE 10 MG TAB PO SCH (09:59)
[2017-10-24] MEDS: LACTOBACILLUS ACIDOPHILUS TAB PO SCH ×2 (10:00→23:28)
[2017-10-24] MEDS: POTASSIUM CHLORIDE 20 MEQ CONTROLLED RELEASE TAB PO SCH (10:00)
[2017-10-24] MEDS: TAMSULOSIN HCL 0.4 MG CAP PO SCH (10:00)
[2017-10-24] MEDS: ESCITALOPRAM OXALATE 10 MG TAB PO SCH (10:00)
[2017-10-24] MEDS: METOPROLOL SUCCINATE 50 MG EXTENDED RELEASE TAB PO SCH (10:01)
[2017-10-24] MEDS: LISINOPRIL 5 MG TAB PO SCH (10:01)
--- NOTE | 2017-10-24 11:51 | HHI.HCPN ---
Reason for visit a. To assist with evaluation and management of symptoms including: Decreased appetite, confusion, debility, dyspnea b. To assist medical decision maker(s) with: better understanding of current medical conditions; weighing benefits/burdens of medical treatment options; making medical treatment decisions. . Subjective/Interval History Mr. Courtney is an 89 year old with a history of diabetes, hypertension, obstructive uropathy from BPH requiring a suprapubic catheter, HLD, history of gastric ulcers, history of atrial fibrillation, hiatal hernia, hypothyroidism, macular degeneration, and sciatica. He presented to [facility] ED via EMS on 10/12/17 for evaluation of worsening confusion, generalized weakness and possible UTI. Mr. Courtney has been hospitalized multiple times in the past 6 months because of recurrent infections including sepsis, recurrent UTIs, C. difficile, and pneumonia. Urine and blood cultures were MRSA+ Patient hospitalization has been complicated by atrial fibrillation with RVR (now resolved) and a large left-sided pneumothorax which required chest tube placement on 10/16/2017. Follow up visit to assist with symptom management and clarification of medical treatment goals. Patient resting peacefully with his eyes closed, arouses easily to verbal stimuli. Oriented to self and place He denies shortness of breath or pain. He states he is "tired." Chest tube clamped. Follow-up chest x- ray this morning showed a slight decrease in size of the left basilar pneumothorax, no change in mild patchy bilateral pulmonary opacity. Afebrile. Hemodynamically stable. WBC: 11.8. Follow-up urine culture on 2016 growing Shaila Glabrata. Repeat BC negative. NAYELY was negative for vegetation. Patient is on Vancomycin and Diflucan; Plan continue IV vancomycin 14 days through 10/27/2017. Infectious disease will continue to follow this patient, considering prophylactic Bactrim DS for recurrent UTI after completion of his IV antibiotic. Patient remains weak, appetite improving. Patient more agreeable to PT today, able to stand with moderate two-person assist. Family has decided to proceed with SNF placement for rehabilitation. They may consider transitioning to comfort focused care in the future if the patient fails rehabilitation or has ongoing complications and decline. Case management has spoke with the patient' s daughter and is assisting with discharge planning. . Advance Directives Living Will: Copy in medical record Health Care Surrogate: Copy in medical record Advance Directive Specifics Date completed: 05/23/2015 . Health Care Surrogate(s): Francisca Veliz is the designated [facility] decision-maker. Francisca Monet has been designated as the alternate [facility] decision-maker. . Documented care wishes: The patient completed a standard living will on 05/23/15 stating he wishes that life prolonging procedures be withheld or withdrawn in the event that 2 physicians determine there is no reasonable medical probability of recovery from a terminal condition, an end-stage condition or if he is in a permanent vegetative state. At that time, he wishes to be allowed to peacefully and naturally with only the administration of medication or performance of procedures deemed necessary to provide him comfort. . Objective Vital Signs Date Time Temp Pulse Resp B/P (MAP) Pulse Ox O2 Delivery O2 Flow Rate FiO2 10/24/17 08:00 97.4 66 16 112/52 (72) 95 10/24/17 05:00 68 10/24/17 04:30 98.6 64 18 124/71 (88) 98 10/24/17 04:00 70 10/24/17 03:00 70 10/24/17 02:00 68 10/24/17 01:31 98.6 68 18 119/57 (77) 98 10/24/17 01:00 72 10/24/17 00:00 68 10/23/17 23:00 72 10/23/17 22:00 70 10/23/17 21:54 98.6 54 18 97/57 (70) 98 10/23/17 21:51 95 Nasal Cannula 3.00 10/23/17 21:00 72 10/23/17 20:23 Nasal Cannula 3.00 10/23/17 20:00 69 10/23/17 19:00 70 10/23/17 18:00 68 10/23/17 17:00 67 10/23/17 16:00 70 10/23/17 16:00 98.2 58 16 110/73 (85) 95 10/23/17 15:00 61 10/23/17 14:00 63 10/23/17 13:47 95 Nasal Cannula 3.00 10/23/17 13:00 76 10/23/17 12:00 85 10/23/17 12:00 97.8 75 16 141/75 (97) 95 Intake & Output 10/24/17 10/24/17 07:00 19:00 Output Total 500 ml Balance -500 ml Output Urine Total 500 ml . Physical Exam CONSTITUTIONAL/GENERAL: This is a frail, elderly male patient in no acute distress. TUBES/LINES/DRAINS: Suprapubic catheter, PIV x 2, chest tube SKIN: Skin is thin and fragile. Skin temperature appropriate. Not diaphoretic. Ecchymosis on upper extremities bilaterally. HEAD: Atraumatic. Normocephalic. EYES: Pupils equal and round and reactive. No scleral icterus. No injection or drainage. Fundi not examined. ENT: Hearing grossly normal. Nose without bleeding or purulent drainage. NECK: Trachea midline. CARDIOVASCULAR: Sinus rhythm No Murmurs, gallops, or rubs. No JVD. Peripheral pulses symmetric. RESPIRATORY/CHEST: Symmetric, unlabored respirations. Clear to auscultation. Breath sounds diminished bilaterally. No wheezes, rales, or rhonchi. Left- sided chest tube clamped. GASTROINTESTINAL: Abdomen soft, non-tender, nondistended. No guarding. Bowel sounds present. GENITOURINARY: Without palpable bladder distension. Suprapubic catheter in place MUSCULOSKELETAL: Extremities without clubbing, cyanosis, or edema. LYMPHATICS: No palpable cervical or supraclavicular adenopathy. NEUROLOGICAL: Oriented to person and place. Lethargic. PSYCHIATRIC: No obvious anxiety/depression. . Diagnostic Tests Laboratory Laboratory Tests Test 10/22/17 07:38 10/22/17 08:25 10/23/17 05:36 10/24/17 06:16 Blood Urea Nitrogen 25 MG/DL (7-18) 22 MG/DL (7-18) 26 MG/DL (7-18) Creatinine 0.60 MG/DL (0.60-1.30) 0.44 MG/DL (0.60-1.30) 0.54 MG/DL (0.60-1.30) Random Glucose 265 MG/DL (74-106) 114 MG/DL (74-106) 157 MG/DL (74-106) Total Protein 6.3 GM/DL (6.4-8.2) Albumin 2.0 GM/DL (3.4-5.0) Calcium Level 8.3 MG/DL (8.5-10.1) 8.4 MG/DL (8.5-10.1) 8.2 MG/DL (8.5-10.1) Alkaline Phosphatase 71 U/L (45-117) Aspartate Amino Transf (AST/SGOT) 12 U/L (15-37) Alanine Aminotransferase (ALT/SGPT) 11 U/L (12-78) Total Bilirubin 0.2 MG/DL (0.2-1.0) Sodium Level 137 MEQ/L (136-145) 138 MEQ/L (136-145) 138 MEQ/L (136-145) Potassium Level 4.2 MEQ/L (3.5-5.1) 3.9 MEQ/L (3.5-5.1) 3.8 MEQ/L (3.5-5.1) Chloride Level 100 MEQ/L (98-107) 101 MEQ/L (98-107) 100 MEQ/L (98-107) Carbon Dioxide Level 33.3 MEQ/L (21.0-32.0) 32.7 MEQ/L (21.0-32.0) 30.9 MEQ/L (21.0-32.0) Anion Gap 4 MEQ/L (5-15) 4 MEQ/L (5-15) 7 MEQ/L (5-15) Estimat Glomerular Filtration Rate 127 ML/MIN (>89) 181 ML/MIN (>89) 143 ML/MIN (>89) White Blood Count 14.1 TH/MM3 (4.0-11.0) 11.2 TH/MM3 (4.0-11.0) 11.8 TH/MM3 (4.0-11.0) Red Blood Count 4.34 MIL/MM3 (4.50-5.90) 4.52 MIL/MM3 (4.50-5.90) 4.26 MIL/MM3 (4.50-5.90) Hemoglobin 12.5 GM/DL (13.0-17.0) 12.9 GM/DL (13.0-17.0) 12.1 GM/DL (13.0-17.0) Hematocrit 37.8 % (39.0-51.0) 39.1 % (39.0-51.0) 37.0 % (39.0-51.0) Mean Corpuscular Volume 87.2 FL (80.0-100.0) 86.7 FL (80.0-100.0) 86.8 FL (80.0-100.0) Mean Corpuscular Hemoglobin 28.8 PG (27.0-34.0) 28.5 PG (27.0-34.0) 28.4 PG (27.0-34.0) Mean Corpuscular Hemoglobin Concent 33.0 % (32.0-36.0) 32.9 % (32.0-36.0) 32.8 % (32.0-36.0) Red Cell Distribution Width 18.1 % (11.6-17.2) 18.5 % (11.6-17.2) 18.5 % (11.6-17.2) Platelet Count 468 TH/MM3 (150-450) 499 TH/MM3 (150-450) 492 TH/MM3 (150-450) Mean Platelet Volume 7.3 FL (7.0-11.0) 7.0 FL (7.0-11.0) 7.1 FL (7.0-11.0) Neutrophils (%) (Auto) 71.9 % (16.0-70.0) 69.9 % (16.0-70.0) Lymphocytes (%) (Auto) 18.1 % (9.0-44.0) 19.7 % (9.0-44.0) Monocytes (%) (Auto) 6.4 % (0.0-8.0) 7.4 % (0.0-8.0) Eosinophils (%) (Auto) 3.1 % (0.0-4.0) 2.6 % (0.0-4.0) Basophils (%) (Auto) 0.5 % (0.0-2.0) 0.4 % (0.0-2.0) Neutrophils # (Auto) 10.2 TH/MM3 (1.8-7.7) 8.2 TH/MM3 (1.8-7.7) Lymphocytes # (Auto) 2.6 TH/MM3 (1.0-4.8) 2.3 TH/MM3 (1.0-4.8) Monocytes # (Auto) 0.9 TH/MM3 (0-0.9) 0.9 TH/MM3 (0-0.9) Eosinophils # (Auto) 0.4 TH/MM3 (0-0.4) 0.3 TH/MM3 (0-0.4) Basophils # (Auto) 0.1 TH/MM3 (0-0.2) 0.0 TH/MM3 (0-0.2) CBC Comment DIFF FINAL DIFF FINAL Differential Comment Thyroid Stimulating Hormone 3rd Gen 2.470 uIU/ML (0.358-3.740) . Result Diagram: 10/24/17 0616 10/24/17 0616 Procedures 10/16/2017: Left-sided chest tube placement . Assessment and Plan Disease Oriented Problem List: (1) Dementia (2) Hypothyroidism (3) Sepsis (4) UTI (urinary tract infection) (5) Hypertension (6) Diabetes mellitus Symptom Scale: (1) Decrease in appetite 0-10 Scale: Unable to quantify (2) Debility 0-10 Scale: Unable to quantify (3) Confusion 0-10 Scale: Unable to quantify (4) Dyspnea 0-10 Scale: Unable to quantify Pertinent Non-Medical Issues Psychosocial:Patient is originally from [place]. He lived in [place], [place] for many years. 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 His in 2004. The patient has 5 adult children. Two daughters live in [place]; Two sons live in [place] and one son who lives in [place] and is estranged from the family. The patient's daughter states "being cognitively sharp" is probably the most important thing to her father. Spiritual: Buddhism pam Legal: HCS and Living will completed on 05/23/2015. Francisca Veliz is the designated [facility] decision-maker. Francisca Monte has been designated as the alternate [facility] decision-maker. The patient completed a standard living will on stating he wishes that life prolonging procedures be withheld or withdrawn in the event that 2 physicians determine there is no reasonable medical probability of recovery from a terminal condition, an end-stage condition or if he is in a permanent vegetative state. At that time, he wishes to be allowed to peacefully and naturally with only the administration of medication or performance of procedures deemed necessary to provide him comfort. Ethical issues impacting care: No known ethical issues impacting care at this time. . Important Contacts Lola Veliz, daughter: [phone] . Prognosis Mr. Courtney is an 89 year old man with a complex medical history who as significantly declined in the past 6 moths. He has had multiple hospitalizations for recurrent UTIs, sepsis, pneumonia, C. difficile and bladder outlet obstruction from BPH requiring a suprapubic catheter. The patient has become progressively more weak, lethargic and confused. He has had a reported weight loss of 50 pounds in the past year and is now too weak to ambulate. Given this patient's advanced age, significant loss in functional status and recurrent infections, his over all prognosis is poor and he is hospice appropriate should his medical treatment goals become comfort focused. . Code Status: No Code Plan * NO CODE- DNR/DNI * Community DNR completed and placed in chart. * Decision-making: Patient currently does not have insight or judgment related to his clinical conditions; it is unclear if the patient will regain capacity. Francisca Veliz is the designated [facility] decision-maker. Francisca Monet has been designated as the alternate [facility] decision-maker. * The patient completed a standard living will on 05/23/15 stating he wishes that life prolonging procedures be withheld or withdrawn in the event that 2 physicians determine there is no reasonable medical probability of recovery from a terminal condition, an end-stage condition or if he is in a permanent vegetative state. At that time, he wishes to be allowed to peacefully and naturally with only the administration of medication or performance of procedures deemed necessary to provide him comfort. * GOAL: Aggressive goals up to the point of cardiopulmonary resuscitation. Discharge plan for placement at SNF for rehabilitation. * Symptom management-decreased appetite: Decreased appetite with associated weight loss reported. Patient's daughter reports a 50 pound weight loss in the past 12 months. BMI: 22.5; albumin 2.0. Appetite slowly improving * Symptom management-confusion: Oriented to person and place. Patient has some degree of dementia at baseline and is on Aricept at home. Encephalopathy likely multifactorial; contributing factors include recent hospitalization, sepsis and underlying dementia. CT head on 10/14/2017 was stable. Will continue to monitor patient closely to ensure safety and reorient patient as appropriate. * Symptom management-debility: Physical therapy continues to follow this patient. Patient remains weak, appetite improving. Patient more agreeable to PT today, able to stand with moderate two-person assist. Plan for placement at staff with rehabilitation on discharge * Symptom management- dyspnea: Patient denies dyspnea on exam today. Pulmonology was consulted on 10/16/2017 due to worsening respiratory distress with persistent large left-sided pneumothorax requiring chest tube placement. CT chest on 10/20/2017 showing persistent left sided pneumothorax and small bilateral pleural effusions with concomitant bibasilar atelectatic changes. Follow-up chest x-ray today 10/22/17 showed a slight decrease in the size of left pneumothorax and a stable right medial lower lung infiltrate. 10/24/17: Chest tube clamped. Follow-up chest x-ray this morning showed a slight decrease in size of the left basilar pneumothorax, no change in mild patchy bilateral pulmonary opacity. * Palliative care will continue to follow this patient throughout his hospitalization to establish trust, assist with symptom management and clarification of medical treatment goals. . Attestation To help prompt me to consider important information that might be impacting today's encounter and assessment, information from prior notes written by myself or my colleagues may have been "brought forward" into today's note. My signature on this note, however, is an attestation that I personally performed the exam, history, and/or decision-making noted today, and, unless otherwise indicated, the interactions with patient, family, and staff as well as the review of records all occurred today. I also attest that the listed assessment and stated plan reflect my best clinical judgment today based on the combination of historical information, prior notes, and today's exam/ interactions. When time spent is documented, it refers only to time spent today by the signer, or if indicated, combined time spent today by collaborating physician/nurse practitioner. . Nati Concepcion Oct 24, 2017 11:51
--- NOTE | 2017-10-24 12:16 | HHI.PR ---
Subjective Remarks Patient complains of nausea. No vomiting. Patient denies shortness of breath. Chest tube remains clamped. Discussed with nurse at bedside. Objective Vitals Vital Signs Date Time Temp Pulse Resp B/P (MAP) Pulse Ox O2 Delivery O2 Flow Rate FiO2 10/24/17 08:00 97.4 66 16 112/52 (72) 95 10/24/17 05:00 68 10/24/17 04:30 98.6 64 18 124/71 (88) 98 10/24/17 04:00 70 10/24/17 03:00 70 10/24/17 02:00 68 10/24/17 01:31 98.6 68 18 119/57 (77) 98 10/24/17 01:00 72 10/24/17 00:00 68 10/23/17 23:00 72 10/23/17 22:00 70 10/23/17 21:54 98.6 54 18 97/57 (70) 98 10/23/17 21:51 95 Nasal Cannula 3.00 10/23/17 21:00 72 10/23/17 20:23 Nasal Cannula 3.00 10/23/17 20:00 69 10/23/17 19:00 70 10/23/17 18:00 68 10/23/17 17:00 67 10/23/17 16:00 70 10/23/17 16:00 98.2 58 16 110/73 (85) 95 10/23/17 15:00 61 10/23/17 14:00 63 10/23/17 13:47 95 Nasal Cannula 3.00 10/23/17 13:00 76 I/O 10/23/17 10/23/17 10/23/17 10/24/17 10/24/17 10/24/17 07:00 15:00 23:00 07:00 15:00 23:00 Intake Total 870 ml Output Total 905 ml 930 ml 500 ml Balance -905 ml -60 ml -500 ml Intake Oral 620 ml IV Total 250 ml Output Urine Total 900 ml 900 ml 500 ml Chest Tube Drainage Total 5 ml 30 ml # Bowel Movements 1 1 Result Diagram: 10/24/1716 10/24/1716 Objective Remarks GENERAL: Well-nourished, well-developed elderly male patient. SKIN: Warm and dry. HEAD: Normocephalic. EYES: No scleral icterus. No injection or drainage. NECK: Supple, trachea midline. No JVD or lymphadenopathy. CARDIOVASCULAR: Regular rate and rhythm without murmurs, gallops, or rubs. Chest tube to left chest. RESPIRATORY: Breath sounds equal bilaterally. No accessory muscle use. GASTROINTESTINAL: Abdomen soft, non-tender, nondistended. Suprapubic catheter present. EXTREMITIES: No cyanosis, or edema. NEUROLOGICAL: Awake, alert, and oriented to self, place. Non-focal. A/P Problem List: (1) Sepsis ICD Code: A41.9 - Sepsis, unspecified organism Status: Resolved (2) UTI (urinary tract infection) ICD Code: N39.0 - Urinary tract infection, site not specified Status: Acute (3) Suprapubic catheter dysfunction ICD Code: T83.010A - Breakdown (mechanical) of cystostomy catheter, initial encounter (4) Hypertension ICD Code: I10 - Essential (primary) hypertension Status: Chronic (5) Diabetes mellitus ICD Code: E11.9 - Type 2 diabetes mellitus without complications Status: Chronic (6) MRSA bacteremia ICD Code: R78.81 - Bacteremia (7) Debility ICD Code: R53.81 - Other malaise (8) Dementia ICD Code: F03.90 - Unspecified dementia without behavioral disturbance (9) Pneumothorax ICD Code: J93.9 - Pneumothorax, unspecified Assessment and Plan 89-year-old male Complex UTI (MRSA/Yeast), sepsis Chronic suprapubic catheter due to BPH Catheter exchange in the ER on 10/12/17 Continue vancomycin until October 27 days Continue Diflucan Urology (Dr. Armstrong) and infectious disease (Dr. Plasencia) following Right hydronephrosis - however stable Cr, may be chronic VSS Bacteremia/sepsis with MRSA bacteremia and in the blood culture Continue to monitor repeat blood culture Follow repeat blood cultures until negative Infectious disease following Congestive heart failure chronic systolic Baseline EF is 35% Continue baseline treatments - continue metoprolol , lisinopril Monitor closely for any fluid overload Chronic, pre-existing Pneumothorax, present at time of admit Chest tube present - chest x-ray today shows again mild reduction in size of left pneumothorax and persistent patchy bilateral lower infiltrates Pulmonology following Dr. Marroquin Follow oxygen saturations Maintain oxygen saturations greater than 90% Generalized weakness Generalized debility Physical therapy A-fib with RVR Resolved - appears to have been a new onset, no reported history of Continue metoprolol Continue Cardizem Follow on telemetry Avoiding aspirin due to history of gastric ulcers 2-D echocardiogram with EF 30-35%, mild aortic valve regurgitation, mildly dilated descending thoracic aorta TSH within normal limits Diabetes mellitus type 2 Follow blood sugars - 100- 300s Insulin sliding scale, continue Levemir 5 units subcutaneous at bedtime Diabetic diet Hypertension Continue metoprolol, lisinopril Continue Cardizem Follow blood pressures Dementia with acute metabolic encephalopathy, encephalopathy appears resolved. Continue Aricept, reorientation Hypothyroidism Continue Synthroid TSH within normal limits buttock/sacral wound (stage 1) Superficial skin irritation Wound care following Air mattress present DVT Prophylaxis SCDs DNR status Palliative care following DC plans to SNF when chest tube removed Carie Boateng MD Oct 24, 2017 12:16
[2017-10-24] MEDS: VANCOMYCIN 1,000 MG/NS 250 ML IV SCH ×6 (12:30→23:43)
--- NOTE | 2017-10-24 12:41 | HHI.IDPN ---
Subjective Subjective Remarks Patient is an 89-year-old male, who lives at home, brought into the hospital for further evaluation of increasing lethargy, and confusion. Patient lives at home alone, and usually the family arranges for [employer] to check up on him or stay with him during the day. He has had problem with multiple UTIs, and apparently his urine was tested and there was some evidence of UTI, and Cipro was called in. Patient however did not start Cipro because he was getting more confused so he was taken to the hospital for further evaluation and treatment. His been noted to be getting some hallucination. There's been no fever or chills or sweats. No noted respiratory problem. He has not had any nausea or vomiting or any diarrhea. Patient also since his been lethargic has not been ambulating as before. Patient has not been febrile. His WBC was elevated. His suprapubic catheter was changed in the emergency room. Apparently gets changed once a month. Patient could not tell me when the last time it was change but during his last hospitalization in August, he underwent cystoscopy, evacuation of hematoma and exchange of his suprapubic catheter done by Dr. Armstrong. 1 out of the 2 blood cultures growing MRSA. His urine culture has MRSA. He has had previous urine culture that had MRSA. Infectious disease consultation has been requested to evaluate the patient. Patient currently remains very confused. Notes reviewed Afebrile Has CT on L side Repeat CXR - slight decrease in L PTX Repeat BC negative CT A/P with R hydronephrosis, improving hydro on L Repeat UC with C. glabrata Antibiotics Current Medications Vancomycin IV Diflucan Medications (Trade) Dose Ordered Sig/Shanel Route Start Time Stop Time Status Last Admin (D50w (Vial) Inj) 50 ml UNSCH PRN IV PUSH 10/12/17 12:00 (Glucagon Inj) 1 mg UNSCH PRN OTHER 10/12/17 12:00 (NovoLOG SUPPLEMENTAL SCALE) 1 ACHS SLIDING SCALE SQ 10/12/17 12:00 10/24/17 09:58 Sodium Chloride 1,000 ml @ 70 mls/hr [id number] IV 10/12/17 11:52 Future Hold 10/17/17 06:16 (NS Flush) 2 ml UNSCH PRN IV FLUSH 10/12/17 12:00 (NS Flush) 2 ml BID IV FLUSH 10/12/17 21:00 10/24/17 09:58 (Tylenol) 650 mg Q4H PRN PO 10/12/17 12:00 (Zofran Inj) 4 mg Q6H PRN IVP 10/12/17 12:00 10/20/17 09:15 (Tylenol) 650 mg Q6H PRN PO 10/12/17 12:00 (Narcan Inj) 0.4 mg UNSCH PRN IV PUSH 10/12/17 12:00 (Milk Of Magnesia Liq) 30 ml Q12H PRN PO 10/12/17 12:00 (Lactinex) 1 tab Q12HR PO 10/12/17 21:00 10/24/17 10:00 Pharmacy Profile Note 0 ml @ 0 mls/hr UNSCH PRN OTHER 10/12/17 12:00 Vancomycin HCl 1000 mg/Sodium Chloride 250 ml @ 250 mls/hr Q12H IV 10/13/17 00:00 10/24/17 00:00 (Aspirin Chew) 81 mg BID CHEW 10/12/17 21:00 10/24/17 09:58 (Aricept) 5 mg HS PO 10/12/17 21:00 10/23/17 19:23 (Lexapro) 5 mg DAILY PO 10/13/17 09:00 10/24/17 10:00 (Diabeta) 5 mg DAILY@0800 PO 10/13/17 08:00 10/24/17 09:57 (Cortef) 2.5 mg DAILY PO 10/13/17 09:00 10/24/17 09:59 (Synthroid) 100 mcg DAILY@0600 PO 10/13/17 06:00 10/24/17 05:14 (Prinivil) 10 mg DAILY PO 10/13/17 09:00 Future Hold 10/13/17 08:43 (Toprol Xl) 50 mg DAILY PO 10/13/17 09:00 10/24/17 10:01 (KCl) 20 meq DAILY PO 10/13/17 09:00 10/24/17 10:00 (Silvadene 1% Cream (50 Gm)) 1 applic DAILY PRN TOPICAL 10/12/17 14:30 (Flomax) 0.4 mg DAILY PO 10/13/17 09:00 10/24/17 10:00 (Pill Splitter) 1 ea UNSCH PRN OTHER 10/12/17 14:45 (Vasotec Inj) 2.5 mg Q6H PRN IV PUSH 10/12/17 15:00 10/13/17 06:34 (Catapres) 0.1 mg Q6H PRN PO 10/12/17 15:00 10/12/17 17:00 Diltiazem HCl 125 mg/Sodium Chloride 125 ml @ 5 mls/hr TITRATE PRN IV 10/13/17 04:15 10/13/17 14:07 (Cardizem) 60 mg Q6HR PO 10/14/17 12:00 10/24/17 11:50 (Xanax) 0.125 mg Q6H PRN PO 10/16/17 14:45 (Diflucan) 200 mg DAILY PO 10/22/17 09:00 10/24/17 09:59 (Levemir Inj) 5 units HS SQ 10/23/17 21:00 10/23/17 19:24 (Prinivil) 5 mg DAILY PO 10/24/17 09:00 10/24/17 10:01 Lines PIV Past Medical History DM Hypertension Hyperlipidemia BPH obstructive uropathy s/p suprapubic catheter recurrent UTIs Hiatal hernia gastric ulcers hypothyroidism Past Surgical History Cataract extractions Tonsillectomy Cystoscopy with suprapubic catheter placement Gastric perforation repair Allergies: Coded Allergies: adhesive tape (Verified Allergy, Severe, Hives, 10/12/17) hydrocodone (Verified Allergy, Severe, HIVES, 10/12/17) Objective . Vital Signs Date Time Temp Pulse Resp B/P (MAP) Pulse Ox O2 Delivery O2 Flow Rate FiO2 10/24/17 08:00 97.4 66 16 112/52 (72) 95 10/24/17 05:00 68 10/24/17 04:30 98.6 64 18 124/71 (88) 98 10/24/17 04:00 70 10/24/17 03:00 70 10/24/17 02:00 68 10/24/17 01:31 98.6 68 18 119/57 (77) 98 10/24/17 01:00 72 10/24/17 00:00 68 10/23/17 23:00 72 10/23/17 22:00 70 10/23/17 21:54 98.6 54 18 97/57 (70) 98 10/23/17 21:51 95 Nasal Cannula 3.00 10/23/17 21:00 72 10/23/17 20:23 Nasal Cannula 3.00 10/23/17 20:00 69 10/23/17 19:00 70 10/23/17 18:00 68 10/23/17 17:00 67 10/23/17 16:00 70 10/23/17 16:00 98.2 58 16 110/73 (85) 95 10/23/17 15:00 61 10/23/17 14:00 63 10/23/17 13:47 95 Nasal Cannula 3.00 10/23/17 13:00 76 . Laboratory Tests Test 10/23/17 05:36 10/24/17 06:16 White Blood Count 11.2 TH/MM3 11.8 TH/MM3 Red Blood Count 4.52 MIL/MM3 4.26 MIL/MM3 Hemoglobin 12.9 GM/DL 12.1 GM/DL Hematocrit 39.1 % 37.0 % Mean Corpuscular Volume 86.7 FL 86.8 FL Mean Corpuscular Hemoglobin 28.5 PG 28.4 PG Mean Corpuscular Hemoglobin Concent 32.9 % 32.8 % Red Cell Distribution Width 18.5 % 18.5 % Platelet Count 499 TH/MM3 492 TH/MM3 Mean Platelet Volume 7.0 FL 7.1 FL Neutrophils (%) (Auto) 69.9 % Lymphocytes (%) (Auto) 19.7 % Monocytes (%) (Auto) 7.4 % Eosinophils (%) (Auto) 2.6 % Basophils (%) (Auto) 0.4 % Neutrophils # (Auto) 8.2 TH/MM3 Lymphocytes # (Auto) 2.3 TH/MM3 Monocytes # (Auto) 0.9 TH/MM3 Eosinophils # (Auto) 0.3 TH/MM3 Basophils # (Auto) 0.0 TH/MM3 CBC Comment DIFF FINAL Differential Comment Laboratory Tests Test 10/23/17 05:36 10/24/17 06:16 Blood Urea Nitrogen 22 MG/DL 26 MG/DL Creatinine 0.44 MG/DL 0.54 MG/DL Random Glucose 114 MG/DL 157 MG/DL Calcium Level 8.4 MG/DL 8.2 MG/DL Sodium Level 138 MEQ/L 138 MEQ/L Potassium Level 3.9 MEQ/L 3.8 MEQ/L Chloride Level 101 MEQ/L 100 MEQ/L Carbon Dioxide Level 32.7 MEQ/L 30.9 MEQ/L Anion Gap 4 MEQ/L 7 MEQ/L Estimat Glomerular Filtration Rate 181 ML/MIN 143 ML/MIN Thyroid Stimulating Hormone 3rd Gen 2.470 uIU/ML Imaging Abdomen/Pelvis CT 10/15/17 0000 Signed Impressions: Service Date/Time: October 12:25 - CONCLUSION: 1. Large pneumothorax on the left. Chest tube likely needed. 2. Bibasilar consolidation and pleural effusions. 3. Cholelithiasis. 4. Right-sided hydronephrosis and hydroureter. Left-sided hydronephrosis has resolved. 5. Distal abdominal aortic aneurysm measuring 3.8 x 3.2 cm. 6. Large hernia abdominal wall containing multiple bowel loops. No signs of obstruction or strangulation 7. Massive enlargement of the prostate gland. 8. Hyperdense material within decompressed urinary bladder, can be thrombus. Kris Levin MD Head CT 10/14/17 0000 Signed Impressions: Service Date/Time: Saturday, October 14, 2017 05:16 - CONCLUSION: Stable noncontrast head CT. Emanuel Gandara MD Physical Exam GENERAL: awake and alert, NAD SKIN: Warm and dry. No generalized rash HEAD: Atraumatic. Normocephalic. No temporal wasting, or tenderness. EYES: [place] conjunctiva. No petechia or hemorrhage. Pupils equal, round and reactive to light. No scleral icterus. No injection or drainage. EARS, NOSE AND THROAT: Nose without bleeding or purulent nasal discharge. No sinus tenderness. Mucous membranes pink and moist. No oral lesions noted. NECK: Trachea midline. Supple and not tender, no meningeal signs CARDIOVASCULAR: Regular rate and rhythm. No murmurs, rubs or gallops heard. Decreased BS bases, CT on L RESPIRATORY: Clear to auscultation. Breath sounds equal bilaterally. No rales , wheezing or rhonchi ABDOMEN: Soft, non-tender, nondistended. Bowel sounds present and normoactive. No guarding. No rebound. No organomegaly. SPC site looks ok. He has reducible hernia in mid abdomen EXTREMITIES: No clubbing, cyanosis, or edema.No joint effusion, has good ROM. No calf tenderness. Well perfused and warm. NEUROLOGICAL: Awake and alert. Cranial nerves grossly intact. Motor grossly within normal limits. PSYCHIATRIC: Normal affect, calm and cooperative. 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
--- NOTE | 2017-10-24 20:01 | HHI.PR ---
Subjective Remarks No complaints. has a Left chest tube still with a small left Pneumothorax. No fever. On antibiotics per ID. Feels better. Objective Vital Signs Date Time Temp Pulse Resp B/P (MAP) Pulse Ox O2 Delivery O2 Flow Rate FiO2 10/24/17 18:00 72 10/24/17 17:00 59 10/24/17 16:45 97.5 71 18 110/58 (75) 96 10/24/17 16:00 60 10/24/17 15:00 76 10/24/17 14:27 96 Nasal Cannula 3.00 10/24/17 14:00 73 10/24/17 13:00 66 10/24/17 12:00 62 10/24/17 12:00 97.8 71 16 129/63 (85) 96 10/24/17 11:00 75 10/24/17 10:00 75 10/24/17 09:00 69 10/24/17 08:00 70 10/24/17 08:00 97.4 66 16 112/52 (72) 95 10/24/17 07:30 Nasal Cannula 3.00 10/24/17 07:00 69 10/24/17 05:00 68 10/24/17 04:30 98.6 64 18 124/71 (88) 98 10/24/17 04:00 70 10/24/17 03:00 70 10/24/17 02:00 68 10/24/17 01:31 98.6 68 18 119/57 (77) 98 10/24/17 01:00 72 10/24/17 00:00 68 10/23/17 23:00 72 10/23/17 22:00 70 10/23/17 21:54 98.6 54 18 97/57 (70) 98 10/23/17 21:51 95 Nasal Cannula 3.00 10/23/17 21:00 72 10/23/17 20:23 Nasal Cannula 3.00 10/23/17 20:00 69 I/O 10/23/17 10/23/17 10/23/17 10/24/17 10/24/17 10/24/17 07:00 15:00 23:00 07:00 15:00 23:00 Intake Total 870 ml 250 ml 1200 ml Output Total 905 ml 930 ml 500 ml 1500 ml Balance -905 ml -60 ml -500 ml 250 ml -300 ml Intake Oral 620 ml 1200 ml IV Total 250 ml 250 ml Output Urine Total 900 ml 900 ml 500 ml 1500 ml Chest Tube Drainage Total 5 ml 30 ml # Bowel Movements 1 1 Result Diagram: 10/24/1761510/24/17615 Objective Remarks GENERAL: This is a thinly built elderly man, not dyspneic. HEENT: Head normocephalic. Pupils are reactive. Throat clear. NECK: Supple. No venous distension. No thyromegaly. CHEST: Equal movements with distant breath sounds. Occasional basilar crackles heard. Wheezes bilateral. HEART: The heart sounds are irregular. S1 and S2. No murmur. No S3. ABDOMEN: Soft, protuberant. No masses, no organomegaly or tenderness. Bowel sounds are active. EXTREMITIES: No edema. Peripheral pulses are diminished. Reflexes are 1+. There is muscle wasting of the extremities. The patient does move his extremities well. Babinski negative. SKIN: No lesions observed. Assessment and Plan Assessment and Plan IMPRESSION 1. Large left pneumothorax with compressive atelectasis in left lung. 2. UTI and sepsis. 3. Basilar pneumonia. 4. History of hypertension. 5. Diabetes mellitus. 6. Altered mental status. Plan : 1. Clamp Chest tube and Rpt CXR in am 2. O2 3L. 3. Cont Duoneb nebs qid. 4. Cont Antibiotics per ID. 5. IS at bedside qid, 6. Will D/C Chest tube in am if CXR stable 7. PT evaluation Blaze Russ MD Oct 24, 2017 20:01
[2017-10-24] MEDS: DONEPEZIL HCL 5 MG TAB PO SCH (23:28)
[2017-10-24] MEDS: INSULIN DETEMIR 100 UNITS/ML VIAL SQ SCH (23:28)
[2017-10-25] VITALS (16 sets, daily range): BP systolic 103–138; BP diastolic 51–60; PULSE 51–72; RESP 18–20; TEMP 96.8–98.4; O2SAT 92–98
[2017-10-25] MEDS: LEVOTHYROXINE SODIUM 100 MCG TAB PO SCH (05:31)
[2017-10-25] MEDS: DILTIAZEM HCL 60 MG TAB PO SCH ×3 (05:31→17:27)
--- NOTE | 2017-10-25 06:23 | RADRPT ---
EXAM DATE/TIME: 10/25/2017 05:41 [facility] COMPARISON: CHEST SINGLE AP, October 24, 2017, 5:43. INDICATIONS : Evaluate for pneumonia MEDICAL HISTORY : Hypertension. Hiatal hernia. Diabetes mellitus type II. SURGICAL HISTORY : None. ENCOUNTER: Subsequent ACUITY: 1 week PAIN SCORE: 7/10 LOCATION: Bilateral chest FINDINGS: Single AP view of the chest. Persistent bilateral lower lung zone opacity. Left-sided chest tube jordan ins in place. Left-sided pneumothorax is again seen. An apical component is now better demonstrated. Likely no significant interval change. CONCLUSION: No change in left sided pneumothorax. Left-sided chest tube remains in place. Jenaro Wright MD on October 25, 2017 at 6:19 Board Certified Radiologist. This report was verified electronically.
[2017-10-25] MEDS: INSULIN ASPART SUPPLEMENTAL SCALE SQ SCH ×4 (08:00→21:07)
[2017-10-25] MEDS: SODIUM CHLORIDE 0.9% FLUSH 10 ML FLUSH IV FLUSH SCH ×3 (09:00→22:05)
[2017-10-25] MEDS: LACTOBACILLUS ACIDOPHILUS TAB PO SCH ×3 (10:35→22:05)
[2017-10-25] MEDS: LISINOPRIL 5 MG TAB PO SCH (10:36)
[2017-10-25] MEDS: HYDROCORTISONE 10 MG TAB PO SCH (10:36)
[2017-10-25] MEDS: METOPROLOL SUCCINATE 50 MG EXTENDED RELEASE TAB PO SCH (10:36)
[2017-10-25] MEDS: POTASSIUM CHLORIDE 20 MEQ CONTROLLED RELEASE TAB PO SCH (10:37)
[2017-10-25] MEDS: glyBURIDE 5 MG TAB PO SCH (10:37)
[2017-10-25] MEDS: ASPIRIN 81 MG CHEW TAB CHEW SCH ×3 (10:37→22:05)
[2017-10-25] MEDS: TAMSULOSIN HCL 0.4 MG CAP PO SCH (10:39)
[2017-10-25] MEDS: FLUCONAZOLE 100 MG TAB PO SCH (10:39)
[2017-10-25] MEDS: ESCITALOPRAM OXALATE 10 MG TAB PO SCH (10:40)
[2017-10-25] MEDS: VANCOMYCIN 1,000 MG/NS 250 ML IV SCH ×4 (12:30→23:58)
--- NOTE | 2017-10-25 14:05 | HHI.PR ---
Subjective Remarks Patient states he is tired of being in the hospital. He denies pain or shortness of breath. Objective Vitals Vital Signs Date Time Temp Pulse Resp B/P (MAP) Pulse Ox O2 Delivery O2 Flow Rate FiO2 10/25/17 06:00 63 10/25/17 05:00 65 10/25/17 04:00 96.8 65 18 138/58 (84) 92 10/25/17 04:00 66 10/25/17 03:00 58 10/25/17 02:00 59 10/25/17 01:00 60 10/25/17 00:00 72 10/25/17 00:00 98.1 61 20 131/59 (83) 97 10/24/17 23:00 60 10/24/17 22:00 55 10/24/17 21:00 63 10/24/17 20:00 96 Nasal Cannula 3.00 10/24/17 20:00 72 10/24/17 20:00 98.3 64 18 135/58 (83) 96 10/24/17 19:00 61 10/24/17 18:00 72 10/24/17 17:00 59 10/24/17 16:45 97.5 71 18 110/58 (75) 96 10/24/17 16:00 60 10/24/17 15:00 76 10/24/17 14:27 96 Nasal Cannula 3.00 I/O 10/24/17 10/24/17 10/24/17 10/25/17 10/25/17 10/25/17 07:00 15:00 23:00 07:00 15:00 23:00 Intake Total 250 ml 1200 ml Output Total 500 ml 1500 ml 550 ml Balance -500 ml 250 ml -300 ml -550 ml Intake Oral 1200 ml IV Total 250 ml Output Urine Total 500 ml 1500 ml 550 ml Chest Tube Drainage Total 0 ml # Bowel Movements 1 Result Diagram: 10/24/1761510/24/1716 Objective Remarks GENERAL: Well-nourished, well-developed elderly male patient. SKIN: Warm and dry. HEAD: Normocephalic. EYES: No scleral icterus. No injection or drainage. NECK: Supple, trachea midline. No JVD or lymphadenopathy. CARDIOVASCULAR: Regular rate and rhythm without murmurs, gallops, or rubs. Chest tube to left chest. RESPIRATORY: Breath sounds equal bilaterally. No accessory muscle use. GASTROINTESTINAL: Abdomen soft, non-tender, nondistended. Suprapubic catheter present. EXTREMITIES: No cyanosis, or edema. NEUROLOGICAL: Awake, alert, and oriented to self, place. Non-focal. A/P Problem List: (1) Sepsis ICD Code: A41.9 - Sepsis, unspecified organism Status: Resolved (2) UTI (urinary tract infection) ICD Code: N39.0 - Urinary tract infection, site not specified Status: Acute (3) Suprapubic catheter dysfunction ICD Code: T83.010A - Breakdown (mechanical) of cystostomy catheter, initial encounter (4) Hypertension ICD Code: I10 - Essential (primary) hypertension Status: Chronic (5) Diabetes mellitus ICD Code: E11.9 - Type 2 diabetes mellitus without complications Status: Chronic (6) MRSA bacteremia ICD Code: R78.81 - Bacteremia (7) Debility ICD Code: R53.81 - Other malaise (8) Dementia ICD Code: F03.90 - Unspecified dementia without behavioral disturbance (9) Pneumothorax ICD Code: J93.9 - Pneumothorax, unspecified Assessment and Plan 89-year-old male Complex UTI (MRSA/Yeast), sepsis Chronic suprapubic catheter due to BPH Catheter exchange in the ER on 10/12/17 Continue vancomycin until October 27 days Continue Diflucan 7 days total Urology (Dr. Armstrong) and infectious disease (Dr. Plasencia) following Right hydronephrosis - however stable Cr, may be chronic VSS Bacteremia/sepsis with MRSA bacteremia and in the blood culture Continue to monitor repeat blood culture Follow repeat blood cultures until negative Infectious disease following Congestive heart failure chronic systolic Baseline EF is 35% Continue baseline treatments - continue metoprolol , lisinopril Monitor closely for any fluid overload Chronic, pre-existing Pneumothorax, present at time of admit Chest tube present - chest x-ray today shows again stable small left pneumothorax Pulmonology following Dr. Marroquin Follow oxygen saturations Maintain oxygen saturations greater than 90% Generalized weakness Generalized debility Physical therapy A-fib with RVR Resolved - appears to have been a new onset, no reported history of Continue metoprolol Continue Cardizem Follow on telemetry Avoiding aspirin due to history of gastric ulcers 2-D echocardiogram with EF 30-35%, mild aortic valve regurgitation, mildly dilated descending thoracic aorta TSH within normal limits Diabetes mellitus type 2 Follow blood sugars - 100- 300s Insulin sliding scale, continue Levemir 5 units subcutaneous at bedtime Diabetic diet Hypertension Continue metoprolol, lisinopril Continue Cardizem Follow blood pressures Dementia with acute metabolic encephalopathy, encephalopathy appears resolved. Continue Aricept, reorientation Hypothyroidism Continue Synthroid TSH within normal limits buttock/sacral wound (stage 1) Superficial skin irritation Wound care following Air mattress present DVT Prophylaxis SCDs DNR status Palliative care following DC plans to SNF when chest tube removed Carie Boateng MD Oct 25, 2017 14:05
[2017-10-25] MEDS: DONEPEZIL HCL 5 MG TAB PO SCH ×2 (21:07→22:05)
[2017-10-25] MEDS: INSULIN DETEMIR 100 UNITS/ML VIAL SQ SCH (21:12)
[2017-10-26] VITALS (20 sets, daily range): BP systolic 107–132; BP diastolic 56–68; PULSE 45–90; RESP 14–20; TEMP 97.1–98; O2SAT 93–97
[2017-10-26] MEDS: DILTIAZEM HCL 60 MG TAB PO SCH ×2 (00:56→05:37)
[2017-10-26] MEDS: LEVOTHYROXINE SODIUM 100 MCG TAB PO SCH (05:37)
[2017-10-26] MEDS: INSULIN ASPART SUPPLEMENTAL SCALE SQ SCH ×4 (08:00→21:00)
[2017-10-26] MEDS: SODIUM CHLORIDE 0.9% FLUSH 10 ML FLUSH IV FLUSH SCH (09:00)
[2017-10-26] MEDS: glyBURIDE 5 MG TAB PO SCH (09:49)
[2017-10-26] MEDS: ASPIRIN 81 MG CHEW TAB CHEW SCH (09:49)
[2017-10-26] MEDS: ESCITALOPRAM OXALATE 10 MG TAB PO SCH (09:49)
[2017-10-26] MEDS: FLUCONAZOLE 100 MG TAB PO SCH (09:50)
[2017-10-26] MEDS: TAMSULOSIN HCL 0.4 MG CAP PO SCH (09:51)
[2017-10-26] MEDS: POTASSIUM CHLORIDE 20 MEQ CONTROLLED RELEASE TAB PO SCH (09:51)
[2017-10-26] MEDS: HYDROCORTISONE 10 MG TAB PO SCH (09:51)
[2017-10-26] MEDS: LISINOPRIL 5 MG TAB PO SCH (09:57)
[2017-10-26] MEDS: LACTOBACILLUS ACIDOPHILUS TAB PO SCH (09:57)
[2017-10-26] MEDS: METOPROLOL SUCCINATE 50 MG EXTENDED RELEASE TAB PO SCH (09:57)
[2017-10-26] MEDS: VANCOMYCIN 1,000 MG/NS 250 ML IV SCH ×2 (13:36)
--- NOTE | 2017-10-26 13:50 | RADRPT ---
EXAM DATE/TIME: 10/26/2017 11:47 [facility] COMPARISON: CHEST SINGLE AP, October 25, 2017, 5:41. INDICATIONS : Shortness of breath, concern for pneumothorax. MEDICAL HISTORY : Hypertension. Hiatal hernia. Diabetes mellitus type II. SURGICAL HISTORY : None. ENCOUNTER: Initial ACUITY: 1 day PAIN SCORE: 0/10 LOCATION: Bilateral chest FINDINGS: A left-sided chest tube is noted. There is a tiny 13 mm left apical pneumothorax. Bibasilar atelectas is is noted. Emphysematous bleb is noted within the right apex. The heart is stable. CONCLUSION: 1. Tiny 13 mm left apical pneumothorax. 2. Emphysematous bleb within the right apex. 3. Bibasilar atelectasis is stable. Salbador Batres MD on October 26, 2017 at 13:46 Board Certified Radiologist. This report was verified electronically.
--- NOTE | 2017-10-26 15:02 | HHI.PR ---
Subjective Remarks Slightly bradycardic dipping into 40s today. Denies pain shortness of breath. Objective Vitals Vital Signs Date Time Temp Pulse Resp B/P (MAP) Pulse Ox O2 Delivery O2 Flow Rate FiO2 10/26/17 11:00 59 10/26/17 10:00 62 10/26/17 09:00 66 10/26/17 08:00 94 3.00 10/26/17 08:00 97.4 77 16 111/57 (75) 94 10/26/17 08:00 76 10/26/17 07:36 93 Nasal Cannula 3.00 10/26/17 07:00 75 10/26/17 04:00 45 10/26/17 03:43 97.6 56 20 112/58 (76) 93 10/26/17 03:00 57 10/26/17 02:00 57 10/26/17 01:00 54 10/26/17 00:00 58 10/26/17 00:00 97.9 51 20 107/56 (73) 94 10/25/17 23:00 56 10/25/17 22:00 51 10/25/17 21:00 53 10/25/17 20:00 60 10/25/17 20:00 98.4 59 20 103/51 (68) 94 10/25/17 20:00 Nasal Cannula 3.00 10/25/17 19:00 60 10/25/17 16:00 60 10/25/17 16:00 97.6 62 18 120/56 (77) 93 I/O 10/25/17 10/25/17 10/25/17 10/26/17 10/26/17 10/26/17 07:00 15:00 23:00 07:00 15:00 23:00 Intake Total 900 ml 480 ml Output Total 550 ml 1405 ml 450 ml 450 ml Balance -550 ml -505 ml 30 ml -450 ml Intake Oral 900 ml 480 ml Output Urine Total 550 ml 1400 ml 450 ml 450 ml Chest Tube Drainage Total 0 ml 5 ml # Bowel Movements 1 1 3 Result Diagram: 10/24/1716 10/24/1716 Objective Remarks GENERAL: Well-nourished, well-developed elderly male patient. SKIN: Warm and dry. HEAD: Normocephalic. EYES: No scleral icterus. No injection or drainage. NECK: Supple, trachea midline. No JVD or lymphadenopathy. CARDIOVASCULAR: Regular rate and rhythm without murmurs, gallops, or rubs. Chest tube to left chest. RESPIRATORY: Breath sounds equal bilaterally. No accessory muscle use. GASTROINTESTINAL: Abdomen soft, non-tender, nondistended. Suprapubic catheter present. EXTREMITIES: No cyanosis, or edema. NEUROLOGICAL: Awake, alert, and oriented to self, place. Non-focal. A/P Problem List: (1) Sepsis ICD Code: A41.9 - Sepsis, unspecified organism Status: Resolved (2) UTI (urinary tract infection) ICD Code: N39.0 - Urinary tract infection, site not specified Status: Acute (3) Suprapubic catheter dysfunction ICD Code: T83.010A - Breakdown (mechanical) of cystostomy catheter, initial encounter (4) Hypertension ICD Code: I10 - Essential (primary) hypertension Status: Chronic (5) Diabetes mellitus ICD Code: E11.9 - Type 2 diabetes mellitus without complications Status: Chronic (6) MRSA bacteremia ICD Code: R78.81 - Bacteremia (7) Debility ICD Code: R53.81 - Other malaise (8) Dementia ICD Code: F03.90 - Unspecified dementia without behavioral disturbance (9) Pneumothorax ICD Code: J93.9 - Pneumothorax, unspecified Assessment and Plan 89-year-old male Complex UTI (MRSA/Yeast), sepsis, Bacteremia/sepsis with MRSA bacteremia and in the blood culture Chronic suprapubic catheter due to BPH Catheter exchange in the ER on 10/12/17 Continue vancomycin until October 27 days Continue Diflucan 7 days total Urology (Dr. Armstrong) and infectious disease (Dr. Plasencia) following Right hydronephrosis - however stable Cr, may be chronic VSS Congestive heart failure chronic systolic Baseline EF is 35% Continue baseline treatments - continue metoprolol , lisinopril Monitor closely for any fluid overload Chronic, pre-existing Pneumothorax, present at time of admit Chest tube present - chest x-ray 10/25 shows again stable small left pneumothorax Pulmonology following Dr. Marroquin Follow oxygen saturations Maintain oxygen saturations greater than 90% Generalized weakness Generalized debility Physical therapy A-fib with RVR Resolved - appears to have been a new onset, no reported history of Continue metoprolol Continue Cardizem, decrease dose due to bradycardia Follow on telemetry Avoiding aspirin due to history of gastric ulcers 2-D echocardiogram with EF 30-35%, mild aortic valve regurgitation, mildly dilated descending thoracic aorta TSH within normal limits Diabetes mellitus type 2 Follow blood sugars - 100- 300s Insulin sliding scale, continue Levemir 5 units subcutaneous at bedtime Diabetic diet Hypertension Continue metoprolol, lisinopril Continue Cardizem Follow blood pressures Dementia with acute metabolic encephalopathy, encephalopathy appears resolved. Continue Aricept, reorientation Hypothyroidism Continue Synthroid TSH within normal limits buttock/sacral wound (stage 1) Superficial skin irritation Wound care following Air mattress present DVT Prophylaxis SCDs DNR status Palliative care following DC plans to SNF when chest tube removed Carie Boateng MD Oct 26, 2017 15:02
[2017-10-26] MEDS: INSULIN DETEMIR 100 UNITS/ML VIAL SQ SCH (21:00)
[2017-10-27] VITALS: PULSE 130
[2017-10-27] MEDS: LEVOTHYROXINE SODIUM 100 MCG TAB PO SCH (07:10)
[2017-10-27 08:00] VITALS: BP 96/57; PULSE 107; RESP 16; TEMP 97.6; O2SAT 93
[2017-10-27] MEDS: INSULIN ASPART SUPPLEMENTAL SCALE SQ SCH ×4 (08:00→22:58)
[2017-10-27] MEDS: SULFAMETHOXAZOLE-TRIMETHOPRIM 400-80 MG TAB PO SCH (09:00)
[2017-10-27] MEDS: LISINOPRIL 5 MG TAB PO SCH (09:00)
[2017-10-27] MEDS: SODIUM CHLORIDE 0.9% FLUSH 10 ML FLUSH IV FLUSH SCH ×2 (09:00→22:59)
--- NOTE | 2017-10-27 09:22 | RADRPT ---
EXAM DATE/TIME: 10/27/2017 08:05 [facility] COMPARISON: CHEST SINGLE AP, October 26, 2017, 11:47. INDICATIONS : Follow-up pneumothorax. MEDICAL HISTORY : Hypertension. Hiatal hernia. Diabetes mellitus type II. SURGICAL HISTORY : None. ENCOUNTER: Subsequent ACUITY: 2 days PAIN SCORE: 0/10 LOCATION: Bilateral chest FINDINGS: Stable left sided chest tube in the inferior hemithorax. Persistent small left pneumothorax, unchange d from prior exam. Redemonstration of bibasilar airspace disease consistent atelectasis. Redemonstrat ion of biapical bullous change. Cardiomediastinal contours are within normal limits. Remainder of the exam is unchanged. CONCLUSION: 1. No significant interval change. 2. Stable left-sided chest tube with stable small left pneumothorax. 3. Stable bibasilar atelectasis. Luis M Duff MD on October 27, 2017 at 9:17 Board Certified Radiologist. This report was verified electronically.
[2017-10-27] MEDS: HYDROCORTISONE 10 MG TAB PO SCH (09:51)
[2017-10-27] MEDS: POTASSIUM CHLORIDE 20 MEQ CONTROLLED RELEASE TAB PO SCH (09:52)
[2017-10-27] MEDS: glyBURIDE 5 MG TAB PO SCH (09:52)
[2017-10-27] MEDS: TAMSULOSIN HCL 0.4 MG CAP PO SCH (09:52)
[2017-10-27] MEDS: ESCITALOPRAM OXALATE 10 MG TAB PO SCH (09:52)
[2017-10-27] MEDS: FLUCONAZOLE 100 MG TAB PO SCH (09:52)
[2017-10-27] MEDS: LACTOBACILLUS ACIDOPHILUS TAB PO SCH ×2 (09:52→22:56)
[2017-10-27] MEDS: METOPROLOL SUCCINATE 50 MG EXTENDED RELEASE TAB PO SCH (09:52)
[2017-10-27] MEDS: DILTIAZEM-CD 120 MG CAP ER PO SCH (09:53)
[2017-10-27] MEDS: ASPIRIN 81 MG CHEW TAB CHEW SCH ×2 (09:53→22:56)
[2017-10-27 12:00] VITALS: BP 127/69; PULSE 85; RESP 16; TEMP 98; O2SAT 94
--- NOTE | 2017-10-27 12:55 | HHI.PR ---
Subjective Remarks No complaints.Left chest tube in still with a small left Pneumothorax. No fever. On O2 2 L Objective Vital Signs Date Time Temp Pulse Resp B/P (MAP) Pulse Ox O2 Delivery O2 Flow Rate FiO2 10/27/17 08:00 97.6 107 16 96/57 (70) 93 10/27/17 08:00 107 10/27/17 07:00 Nasal Cannula 3.00 10/27/17 00:00 130 10/26/17 22:30 Nasal Cannula 3.00 10/26/17 22:30 77 20 131/68 (89) 97 10/26/17 22:25 Nasal Cannula 3.00 10/26/17 20:00 90 10/26/17 17:00 65 10/26/17 16:00 97.1 64 14 124/64 (84) 95 10/26/17 16:00 60 10/26/17 15:00 62 10/26/17 14:00 61 10/26/17 13:00 62 I/O 10/26/17 10/26/17 10/26/17 10/27/17 10/27/17 10/27/17 07:00 15:00 23:00 07:00 15:00 23:00 Intake Total 480 ml 480 ml 240 ml Output Total 450 ml 450 ml 285 ml 840 ml Balance 30 ml -450 ml 195 ml -600 ml Intake Oral 480 ml 480 ml 240 ml Output Urine Total 450 ml 450 ml 275 ml 825 ml Chest Tube Drainage Total 10 ml 15 ml # Bowel Movements 3 2 Result Diagram: 10/24/1716 10/24/17 0616 Objective Remarks GENERAL: This is a thinly built elderly man, not dyspneic. HEENT: Head normocephalic. Pupils are reactive. Throat clear. NECK: Supple. No venous distension. No thyromegaly. CHEST: Equal movements with distant breath sounds. Occasional Wheezes bilateral. HEART: The heart sounds are irregular. S1 and S2. No murmur. No S3. ABDOMEN: Soft, protuberant. No masses, no organomegaly or tenderness. Bowel sounds are active. EXTREMITIES: No edema. Peripheral pulses are diminished. Reflexes are 1+. There is muscle wasting of the extremities. The patient does move his extremities well. SKIN: No lesions observed. Assessment and Plan Assessment and Plan IMPRESSION 1. Large left pneumothorax with compressive atelectasis in left lung. 2. UTI and sepsis. 3. Basilar pneumonia. 4. History of hypertension. 5. Diabetes mellitus. 6. Altered mental status. Plan : 1. Cont to Clamp Chest tube and Rpt CXR in am 2. O2 2 L. 3. Cont Duoneb nebs qid. 4. Antibiotics per ID. 5. IS at bedside qid, 6. Will D/C Chest tube in am if CXR stable 7. PT evaluation Blaze Russ MD Oct 27, 2017 12:55
--- NOTE | 2017-10-27 14:31 | HHI.PR ---
Subjective Remarks Denies complaints. Slept through lunch and requests snack. Objective Vitals Vital Signs Date Time Temp Pulse Resp B/P (MAP) Pulse Ox O2 Delivery O2 Flow Rate FiO2 10/27/17 12:00 98.0 85 16 127/69 (88) 94 10/27/17 08:00 97.6 107 16 96/57 (70) 93 10/27/17 08:00 107 10/27/17 07:00 Nasal Cannula 3.00 10/27/17 00:00 130 10/26/17 22:30 Nasal Cannula 3.00 10/26/17 22:30 77 20 131/68 (89) 97 10/26/17 22:25 Nasal Cannula 3.00 10/26/17 20:00 90 10/26/17 17:00 65 10/26/17 16:00 97.1 64 14 124/64 (84) 95 10/26/17 16:00 60 10/26/17 15:00 62 I/O 10/26/17 10/26/17 10/26/17 10/27/17 10/27/17 10/27/17 07:00 15:00 23:00 07:00 15:00 23:00 Intake Total 480 ml 480 ml 240 ml Output Total 450 ml 450 ml 285 ml 840 ml Balance 30 ml -450 ml 195 ml -600 ml Intake Oral 480 ml 480 ml 240 ml Output Urine Total 450 ml 450 ml 275 ml 825 ml Chest Tube Drainage Total 10 ml 15 ml # Bowel Movements 3 2 Result Diagram: 10/24/17 0616 10/24/17 0616 Objective Remarks GENERAL: Well-nourished, well-developed elderly male patient. SKIN: Warm and dry. HEAD: Normocephalic. EYES: No scleral icterus. No injection or drainage. NECK: Supple, trachea midline. No JVD or lymphadenopathy. CARDIOVASCULAR: Regular rate and rhythm without murmurs, gallops, or rubs. Chest tube to left chest. RESPIRATORY: Breath sounds equal bilaterally. No accessory muscle use. GASTROINTESTINAL: Abdomen soft, non-tender, nondistended. Suprapubic catheter present. EXTREMITIES: No cyanosis, or edema. NEUROLOGICAL: Awake, alert, and oriented to self, place. Non-focal. A/P Problem List: (1) Sepsis ICD Code: A41.9 - Sepsis, unspecified organism Status: Resolved (2) UTI (urinary tract infection) ICD Code: N39.0 - Urinary tract infection, site not specified Status: Acute (3) Suprapubic catheter dysfunction ICD Code: T83.010A - Breakdown (mechanical) of cystostomy catheter, initial encounter (4) Hypertension ICD Code: I10 - Essential (primary) hypertension Status: Chronic (5) Diabetes mellitus ICD Code: E11.9 - Type 2 diabetes mellitus without complications Status: Chronic (6) MRSA bacteremia ICD Code: R78.81 - Bacteremia (7) Debility ICD Code: R53.81 - Other malaise (8) Dementia ICD Code: F03.90 - Unspecified dementia without behavioral disturbance (9) Pneumothorax ICD Code: J93.9 - Pneumothorax, unspecified Assessment and Plan 89-year-old male Complex UTI (MRSA/Yeast), sepsis, Bacteremia/sepsis with MRSA bacteremia and in the blood culture Chronic suprapubic catheter due to BPH Catheter exchange in the ER on 10/12/17 Continue vancomycin until October 27 (today) total 14 days Continue Diflucan 7 days total Urology (Dr. Armstrong) and infectious disease (Dr. Plasencia) following Right hydronephrosis - however stable Cr, may be chronic VSS Congestive heart failure chronic systolic Baseline EF is 35% Continue baseline treatments - continue metoprolol , lisinopril Monitor closely for any fluid overload Chronic, pre-existing Pneumothorax, present at time of admit Chest tube present - chest x-ray 10/27 shows again stable small left pneumothorax Pulmonology following Dr. Marroquin-possible DC CT tomorrow if cxr stable Follow oxygen saturations Maintain oxygen saturations greater than 90% Generalized weakness Generalized debility Physical therapy A-fib with RVR Resolved - appears to have been a new onset, no reported history of Continue metoprolol Continue Cardizem Follow on telemetry Avoiding aspirin due to history of gastric ulcers 2-D echocardiogram with EF 30-35%, mild aortic valve regurgitation, mildly dilated descending thoracic aorta TSH within normal limits Diabetes mellitus type 2 Follow blood sugars - 100- 300s Insulin sliding scale, continue Levemir 5 units subcutaneous at bedtime Diabetic diet Hypertension Continue metoprolol, lisinopril Continue Cardizem Follow blood pressures Dementia with acute metabolic encephalopathy, encephalopathy appears resolved. Continue Aricept, reorientation Hypothyroidism Continue Synthroid TSH within normal limits buttock/sacral wound (stage 1) Superficial skin irritation Wound care following Air mattress present DVT Prophylaxis SCDs DNR status Palliative care following DC plans to SNF when chest tube removed Discharge Planning DC to SNF when CT removed Carie Boateng MD Oct 27, 2017 14:31
[2017-10-27 17:18] VITALS: BP 135/64; PULSE 73; RESP 18; TEMP 98.7; O2SAT 96
[2017-10-27 21:00] VITALS: BP 117/69; PULSE 70; PULSE 78; RESP 20; TEMP 97.7; O2SAT 98
[2017-10-27] MEDS: DONEPEZIL HCL 5 MG TAB PO SCH (22:56)
[2017-10-27] MEDS: INSULIN DETEMIR 100 UNITS/ML VIAL SQ SCH (22:57)
[2017-10-28] VITALS (17 sets, daily range): BP systolic 119–139; BP diastolic 60–77; PULSE 65–91; RESP 16–20; TEMP 97–97.9; O2SAT 94–97
--- NOTE | 2017-10-28 05:05 | RADRPT ---
EXAM DATE/TIME: 10/28/2017 04:15 [facility] COMPARISON: CHEST SINGLE AP, October 27, 2017, 8:05. INDICATIONS : Short of breath. MEDICAL HISTORY : Hypertension. Hiatal hernia. Diabetes mellitus type II. SURGICAL HISTORY : None. ENCOUNTER: Subsequent ACUITY: 2 weeks PAIN SCORE: 0/10 LOCATION: Bilateral chest FINDINGS: On a prior chest x-ray there was a left-sided chest tube. This is no longer present. There is a persi stent mild pneumothorax seen on the left side. This is unchanged from the prior exam. This measures 0 .7 cm in thickness over the lateral left chest. It appears somewhat larger over the apex but is diffi cult to see the pleural line over the left upper lung. There is persistent atelectasis or consolidati on at the bases bilaterally. The heart size is normal. CONCLUSION: 1. The previously seen left chest tube is no longer present. There continues to be a similar appearin g left pneumothorax. 2. Bibasilar areas of consolidation or atelectasis. Chin Magallanes MD on October 28, 2017 at 5:00 Board Certified Radiologist. This report was verified electronically.
[2017-10-28] MEDS: LEVOTHYROXINE SODIUM 100 MCG TAB PO SCH (06:00)
[2017-10-28] MEDS: INSULIN ASPART SUPPLEMENTAL SCALE SQ SCH ×4 (08:00→21:20)
[2017-10-28] MEDS: SULFAMETHOXAZOLE-TRIMETHOPRIM 400-80 MG TAB PO SCH (09:02)
[2017-10-28] MEDS: LACTOBACILLUS ACIDOPHILUS TAB PO SCH ×2 (09:03→21:20)
[2017-10-28] MEDS: HYDROCORTISONE 10 MG TAB PO SCH (09:03)
[2017-10-28] MEDS: TAMSULOSIN HCL 0.4 MG CAP PO SCH (09:03)
[2017-10-28] MEDS: FLUCONAZOLE 100 MG TAB PO SCH (09:03)
[2017-10-28] MEDS: ASPIRIN 81 MG CHEW TAB CHEW SCH ×2 (09:03→21:20)
[2017-10-28] MEDS: POTASSIUM CHLORIDE 20 MEQ CONTROLLED RELEASE TAB PO SCH (09:03)
[2017-10-28] MEDS: LISINOPRIL 5 MG TAB PO SCH (09:03)
[2017-10-28] MEDS: glyBURIDE 5 MG TAB PO SCH (09:04)
[2017-10-28] MEDS: ESCITALOPRAM OXALATE 10 MG TAB PO SCH (09:04)
[2017-10-28] MEDS: DILTIAZEM-CD 120 MG CAP ER PO SCH (09:05)
[2017-10-28] MEDS: SODIUM CHLORIDE 0.9% FLUSH 10 ML FLUSH IV FLUSH SCH ×2 (09:07→21:20)
[2017-10-28] MEDS: METOPROLOL SUCCINATE 50 MG EXTENDED RELEASE TAB PO SCH (09:08)
--- NOTE | 2017-10-28 12:05 | PD.WOU.PN ---
Patient Intake Chief Complaint sacral ulcer Consult Requested by Primary Care Physician Chris Leblanc MD History of Present Illness Sacral ulcer Coded Allergies: adhesive tape (Verified Allergy, Severe, Hives, 10/12/17) hydrocodone (Verified Allergy, Severe, HIVES, 10/12/17) Preferred Language to Discuss: Malay Vital Signs Date Time Temp Pulse Resp B/P (MAP) Pulse Ox O2 Delivery O2 Flow Rate FiO2 10/28/17 08:30 94 Nasal Cannula 3.00 10/28/17 08:00 97.9 81 16 139/76 (97) 95 10/28/17 08:00 91 10/28/17 07:45 Nasal Cannula 3.00 10/28/17 04:00 97.0 71 20 139/76 (97) 95 10/28/17 04:00 70 10/28/17 00:00 80 10/28/17 00:00 97.0 75 20 123/77 (92) 97 10/27/17 21:00 98 Nasal Cannula 3.00 10/27/17 21:00 70 10/27/17 21:00 97.7 78 20 117/69 (85) 98 10/27/17 17:18 98.7 73 18 135/64 (87) 96 Past, Family & Social History Past Medical History Endocrine: REPORTS HX OF: Diabetes mellitus (TYPE II) Cardiovascular: REPORTS HX OF: Hyperlipidemia, Hypertension Gastrointestinal: REPORTS HX OF: Other GI history (Hiatal Hernia , Gastric Ulcer) Genitourinary: REPORTS HX OF: Past UTI, Other history (Retention ) Genitourinary - Male: REPORTS HX OF: Benign prost. hyperplasia Cancer/Hematology: REPORTS HX OF: Anemia Infectious Disease: REPORTS HX OF: MRSA Neurologic: REPORTS HX OF: Dementia Psychiatric: REPORTS HX OF: Depression Past Surgical History HEENT: REPORTS HX OF: Cataract extraction, Tonsillectomy Gastrointestinal: REPORTS HX OF: Other GI surgery (Abdominal Surgery for Perforated Stomach), DENIES HX OF: Colectomy, total Genitourinary: REPORTS HX OF: Other surgery (Cystoscopy with Suprapubic Tube Insertion ) Substance Use Substance Use: Denies use Lab and Radiology Results Radiology Last Impressions Chest X-Ray 10/28/17 0600 Signed Impressions: Service Date/Time: Saturday, October 28, 2017 04:15 - CONCLUSION: 1. The previously seen left chest tube is no longer present. There continues to be a similar appearing left pneumothorax. 2. Bibasilar areas of consolidation or atelectasis. Chin Magallanes MD Chest CT 10/20/17 0000 Signed Impressions: Service Date/Time: Friday, October 20, 2017 15:54 - CONCLUSION: 1. [place] loop thoracostomy tube in the left hemithorax is positioned posteriorly in the small left pleural effusion. 2. Persistent left-sided pneumothorax. Would consider a surgical thoracostomy tube more anteriorly to treat the same. 3. Right apical bleb. Small bilateral pleural effusions with concomitant bibasilar atelectatic changes. 4. Cholelithiasis. Nash Armijo MD Chest Tube Insertion 10/16/171933 Signed Impressions: Service Date/Time: October 22:20 - CONCLUSION: Uncomplicated chest tube placement as above. Luis M Duff MD Abdomen/Pelvis CT 10/15/17 0000 Signed Impressions: Service Date/Time: October 12:25 - CONCLUSION: 1. Large pneumothorax on the left. Chest tube likely needed. 2. Bibasilar consolidation and pleural effusions. 3. Cholelithiasis. 4. Right-sided hydronephrosis and hydroureter. Left-sided hydronephrosis has resolved. 5. Distal abdominal aortic aneurysm measuring 3.8 x 3.2 cm. 6. Large hernia abdominal wall containing multiple bowel loops. No signs of obstruction or strangulation 7. Massive enlargement of the prostate gland. 8. Hyperdense material within decompressed urinary bladder, can be thrombus. Kris Levin MD Head CT 10/14/17 0000 Signed Impressions: Service Date/Time: Saturday, October 14, 2017 05:16 - CONCLUSION: Stable noncontrast head CT. MD Jeff Wheatley Karla A. MD Oct 28, 2017 12:05
[2017-10-28] MEDS ORDERED: SILVER NITR/POTASSIUM NITRATE APPLICATORS TOPICAL STA (12:08)
--- NOTE | 2017-10-28 14:53 | HHI.PR ---
Subjective Remarks Patient denies fevers or chills. eating well. chest tube has been removed. discussed with RN, as per RN Dr. Milton once obtain a chest x-ray in the morning and if stable then he may be able to discharged Objective Vitals Vital Signs Date Time Temp Pulse Resp B/P (MAP) Pulse Ox O2 Delivery O2 Flow Rate FiO2 10/28/17 12:00 80 10/28/17 08:30 94 Nasal Cannula 3.00 10/28/17 08:00 97.9 81 16 139/76 (97) 95 10/28/17 08:00 91 10/28/17 07:45 Nasal Cannula 3.00 10/28/17 04:00 97.0 71 20 139/76 (97) 95 10/28/17 04:00 70 10/28/17 00:00 80 10/28/17 00:00 97.0 75 20 123/77 (92) 97 10/27/17 21:00 98 Nasal Cannula 3.00 10/27/17 21:00 70 10/27/17 21:00 97.7 78 20 117/69 (85) 98 10/27/17 17:18 98.7 73 18 135/64 (87) 96 I/O 10/27/17 10/27/17 10/27/17 10/28/17 10/28/17 10/28/17 07:00 15:00 23:00 07:00 15:00 23:00 Intake Total 240 ml 500 ml 600 ml Output Total 840 ml 2150 ml 800 ml Balance -600 ml -1650 ml -200 ml Intake Oral 240 ml 500 ml 600 ml Output Urine Total 825 ml 2150 ml 800 ml Chest Tube Drainage Total 15 ml # Bowel Movements 2 1 Result Diagram: 10/24/17 0616 10/24/17 0616 Imaging Last Impressions Tunnelled Chest Tube Removal 10/28/17 1305 Signed Impressions: Service Date/Time: Saturday, October 28, 2017 13:05 - CONCLUSION: Uncomplicated chest tube removal. Nash Armijo MD Chest X-Ray 10/28/17 0600 Signed Impressions: Service Date/Time: Saturday, October 28, 2017 04:15 - CONCLUSION: 1. The previously seen left chest tube is no longer present. There continues to be a similar appearing left pneumothorax. 2. Bibasilar areas of consolidation or atelectasis. Chin Magallanes MD Chest CT 10/20/17 0000 Signed Impressions: Service Date/Time: Friday, October 20, 2017 15:54 - CONCLUSION: 1. [place] loop thoracostomy tube in the left hemithorax is positioned posteriorly in the small left pleural effusion. 2. Persistent left-sided pneumothorax. Would consider a surgical thoracostomy tube more anteriorly to treat the same. 3. Right apical bleb. Small bilateral pleural effusions with concomitant bibasilar atelectatic changes. 4. Cholelithiasis. Nash Armijo MD Chest Tube Insertion 10/16/17 193 Signed Impressions: Service Date/Time: October 22:20 - CONCLUSION: Uncomplicated chest tube placement as above. Luis M Duff MD Abdomen/Pelvis CT 10/15/17 0000 Signed Impressions: Service Date/Time: October 12:25 - CONCLUSION: 1. Large pneumothorax on the left. Chest tube likely needed. 2. Bibasilar consolidation and pleural effusions. 3. Cholelithiasis. 4. Right-sided hydronephrosis and hydroureter. Left-sided hydronephrosis has resolved. 5. Distal abdominal aortic aneurysm measuring 3.8 x 3.2 cm. 6. Large hernia abdominal wall containing multiple bowel loops. No signs of obstruction or strangulation 7. Massive enlargement of the prostate gland. 8. Hyperdense material within decompressed urinary bladder, can be thrombus. Kris Levin MD Head CT 10/14/17 0000 Signed Impressions: Service Date/Time: Saturday, October 14, 2017 05:16 - CONCLUSION: Stable noncontrast head CT. Emanuel Gandara MD Objective Remarks GENERAL: Well-nourished, well-developed elderly male patient. SKIN: Warm and dry. HEAD: Normocephalic. EYES: No scleral icterus. No injection or drainage. NECK: Supple, trachea midline. No JVD or lymphadenopathy. CARDIOVASCULAR: Regular rate and rhythm without murmurs, gallops, or rubs. Chest tube to left chest. RESPIRATORY: Breath sounds equal bilaterally. No accessory muscle use. GASTROINTESTINAL: Abdomen soft, non-tender, nondistended. Suprapubic catheter present. EXTREMITIES: No cyanosis, or edema. NEUROLOGICAL: Awake, alert, and oriented to self, place. Non-focal. Medications and IVs Current Medications Medications (Trade) Dose Ordered Sig/Shanel Route Start Time Stop Time Status Last Admin (D50w (Vial) Inj) 50 ml UNSCH PRN IV PUSH 10/12/17 12:00 (Glucagon Inj) 1 mg UNSCH PRN OTHER 10/12/17 12:00 (NovoLOG SUPPLEMENTAL SCALE) 1 ACHS SLIDING SCALE SQ 10/12/17 12:00 10/28/17 13:21 (NS Flush) 2 ml UNSCH PRN IV FLUSH 10/12/17 12:00 (NS Flush) 2 ml BID IV FLUSH 10/12/17 21:00 10/28/17 09:07 (Tylenol) 650 mg Q4H PRN PO 10/12/17 12:00 (Zofran Inj) 4 mg Q6H PRN IVP 10/12/17 12:00 10/20/17 09:15 (Tylenol) 650 mg Q6H PRN PO 10/12/17 12:00 (Narcan Inj) 0.4 mg UNSCH PRN IV PUSH 10/12/17 12:00 (Milk Of Magnesia Liq) 30 ml Q12H PRN PO 10/12/17 12:00 (Lactinex) 1 tab Q12HR PO 10/12/17 21:00 10/28/17 09:03 (Aspirin Chew) 81 mg BID CHEW 10/12/17 21:00 10/28/17 09:03 (Aricept) 5 mg HS PO 10/12/17 21:00 10/27/17 22:56 (Lexapro) 5 mg DAILY PO 10/13/17 09:00 10/28/17 09:04 (Diabeta) 5 mg DAILY@0800 PO 10/13/17 08:00 10/28/17 09:04 (Cortef) 2.5 mg DAILY PO 10/13/17 09:00 10/28/17 09:03 (Synthroid) 100 mcg DAILY@0600 PO 10/13/17 06:00 10/28/17 06:00 (Prinivil) 10 mg DAILY PO 10/13/17 09:00 Future Hold 10/13/17 08:43 (Toprol Xl) 50 mg DAILY PO 10/13/17 09:00 10/28/17 09:08 (KCl) 20 meq DAILY PO 10/13/17 09:00 10/28/17 09:03 (Silvadene 1% Cream (50 Gm)) 1 applic DAILY PRN TOPICAL 10/12/17 14:30 (Flomax) 0.4 mg DAILY PO 10/13/17 09:00 10/28/17 09:03 (Pill Splitter) 1 ea UNSCH PRN OTHER 10/12/17 14:45 (Vasotec Inj) 2.5 mg Q6H PRN IV PUSH 10/12/17 15:00 10/13/17 06:34 (Catapres) 0.1 mg Q6H PRN PO 10/12/17 15:00 10/12/17 17:00 (Xanax) 0.125 mg Q6H PRN PO 10/16/17 14:45 (Diflucan) 200 mg DAILY PO 10/22/17 09:00 10/28/17 23:00 10/28/17 09:03 (Levemir Inj) 5 units HS SQ 10/23/17 21:00 10/27/17 22:57 (Prinivil) 5 mg DAILY PO 10/24/17 09:00 10/28/17 09:03 (Bactrim 400-80 Mg) 1 tab DAILY PO 10/27/17 09:00 10/28/17 09:02 (Cardizem Cd) 120 mg DAILY PO 10/27/17 09:00 10/28/17 09:05 A/P Problem List: (1) Sepsis ICD Code: A41.9 - Sepsis, unspecified organism Status: Resolved (2) UTI (urinary tract infection) ICD Code: N39.0 - Urinary tract infection, site not specified Status: Acute (3) Suprapubic catheter dysfunction ICD Code: T83.010A - Breakdown (mechanical) of cystostomy catheter, initial encounter (4) Hypertension ICD Code: I10 - Essential (primary) hypertension Status: Chronic (5) Diabetes mellitus ICD Code: E11.9 - Type 2 diabetes mellitus without complications Status: Chronic (6) MRSA bacteremia ICD Code: R78.81 - Bacteremia (7) Debility ICD Code: R53.81 - Other malaise (8) Dementia ICD Code: F03.90 - Unspecified dementia without behavioral disturbance (9) Pneumothorax ICD Code: J93.9 - Pneumothorax, unspecified Assessment and Plan 89-year-old male Complex UTI (MRSA/Yeast), sepsis, Bacteremia/sepsis with MRSA bacteremia and in the blood culture Chronic suprapubic catheter due to BPH Catheter exchange in the ER on 10/12/17 Continue vancomycin until October 27 (today) total 14 days Continue Diflucan 7 days total Urology (Dr. Armstrong) and infectious disease (Dr. Plasencia) following Right hydronephrosis - however stable Cr, may be chronic VSS Congestive heart failure chronic systolic Baseline EF is 35% Continue baseline treatments - continue metoprolol , lisinopril Monitor closely for any fluid overload Chronic, pre-existing Pneumothorax, present at time of admit Chest tube present - chest x-ray 10/27 shows again stable small left pneumothorax Pulmonology consulted. Follow oxygen saturations Maintain oxygen saturations greater than 90% 10/28 CT removed today. Chest x-ray obtained today shows that the previously seen left chest tube is no longer present. They continues to be a similar- appearing left pneumothorax. Bibasilar areas of atelectasis or consolidation CXR to be repeated in am. DC Pending pulmonology clearance. Generalized weakness Generalized debility Physical therapy A-fib with RVR Resolved - appears to have been a new onset, no reported history of Continue metoprolol Continue Cardizem Follow on telemetry Avoiding aspirin due to history of gastric ulcers 2-D echocardiogram with EF 30-35%, mild aortic valve regurgitation, mildly dilated descending thoracic aorta TSH within normal limits Diabetes mellitus type 2 Follow blood sugars - 100- 300s Insulin sliding scale, continue Levemir 5 units subcutaneous at bedtime Diabetic diet Hypertension Continue metoprolol, lisinopril Continue Cardizem Follow blood pressures Dementia with acute metabolic encephalopathy, encephalopathy appears resolved. Continue Aricept, reorientation Hypothyroidism Continue Synthroid TSH within normal limits buttock/sacral wound (stage 1) Superficial skin irritation Wound care following Air mattress present DVT Prophylaxis SCDs DNR status Palliative care following Karthik Disla MD Oct 28, 2017 14:53
--- NOTE | 2017-10-28 15:02 | PD.WCN.NOT ---
Wound Consult Description: Patient seen for follow up of unstageable pressure injuries to sacrum and coccyx areas Communicated with: RN Krystal Jarvis [address] [place] [address], and Doctor Disla Recommendation: 1.Please cleanse Sacral and coccygeal wounds with normal saline and pat dry. Apply Maxorb II (Calcium Alginate) dressing and cover with Adhesive foam dressing change as ordered by Doctor Disla 2.Reposition patient every 2 hours and PRN for comfort and to offload pressure from deann prominences. Additional Information: Patient seen on [facility] for follow up of sacrococcygeal two unstageable pressure injuries. Patient was turned to R side with the assistance of Gina GRECO, and poem writer. Doctor Disla at bedside during wound assessment. Patient was previously recommended Calazime barrier cream and antifungal cream mixed and wounds were left open to air, due to periwound fungal rash. Patient periwound has Improved now noted with slight blanchable erythema. Sacral wound presents with~ 50% loosely adherent slough and ~50% pink tissue. Wound drainage is minimal and sero-sanguinous without odor. Wound measures 1.1cm x 1.2cm x 0.2cm. Doctor Disla removed some slough with curette. Cleansed wound with normal saline and patted dry. Coccyx wound presents with ~80% yellow loosely adherent slough and ~20% pink tissue. Wound is draining minimal sero-sanguinous drainage that is without odor. Wound margins are steep and well defined. Cleansed wound with normal saline and pat dry. Applied skin prep to periwound and covered wound with sacral adhesive foam dressing. Recommend Maxorb II(calcium alginate) be applied with adhesive foam dressing, Maxorb II unavailable at this time. RN will apply Maxorb II when supplies available. Patient was positioned to L side with pillows in place for support and bed was lowered to a safe height before leaving patient's room. Chelsi Simon [facility] Oct 28, 2017 15:02
--- NOTE | 2017-10-28 16:08 | RADRPT ---
EXAM DATE/TIME: 10/28/2017 13:05 [facility] COMPARISON: No previous studies available for comparison. INDICATIONS : CGHEST TUBE REMOVAL DEVICE(S): 1.) PROCEDURE : Chest tube removal. Using aseptic technique the previously placed chest tube was easily removed in one piece and Vaseline gauze and sterile dressing was applied. Chest radiograph is to be obtained. CONCLUSION: Uncomplicated chest tube removal. Nash Armijo MD on October 28, 2017 at 16:06 Board Certified Radiologist. This report was verified electronically.
--- NOTE | 2017-10-28 19:31 | HHI.PR ---
Subjective Remarks No complaints.Left chest tube is out . CXR still shows a small left Pneumothorax. On O2 2 L. Overall improved. Objective Vital Signs Date Time Temp Pulse Resp B/P (MAP) Pulse Ox O2 Delivery O2 Flow Rate FiO2 10/28/17 16:00 97.3 82 16 119/61 (80) 95 10/28/17 12:00 80 10/28/17 12:00 97.9 10/28/17 08:30 94 Nasal Cannula 3.00 10/28/17 08:00 97.9 81 16 139/76 (97) 95 10/28/17 08:00 91 10/28/17 07:45 Nasal Cannula 3.00 10/28/17 04:00 97.0 71 20 139/76 (97) 95 10/28/17 04:00 70 10/28/17 00:00 80 10/28/17 00:00 97.0 75 20 123/77 (92) 97 10/27/17 21:00 98 Nasal Cannula 3.00 10/27/17 21:00 70 10/27/17 21:00 97.7 78 20 117/69 (85) 98 I/O 10/27/17 10/27/17 10/27/17 10/28/17 10/28/17 10/28/17 07:00 15:00 23:00 07:00 15:00 23:00 Intake Total 240 ml 500 ml 600 ml Output Total 840 ml 2150 ml 800 ml Balance -600 ml -1650 ml -200 ml Intake Oral 240 ml 500 ml 600 ml Output Urine Total 825 ml 2150 ml 800 ml Chest Tube Drainage Total 15 ml # Bowel Movements 2 1 Result Diagram: 10/24/17 0616 10/24/17 0616 Objective Remarks GENERAL: This is a thinly built elderly man, not dyspneic. HEENT: Head normocephalic. Pupils are reactive. Throat clear. NECK: Supple. No venous distension. No thyromegaly. CHEST: Equal movements with distant breath sounds. Occasional Wheezes bilateral. HEART: The heart sounds are irregular. S1 and S2. No murmur. No S3. ABDOMEN: Soft, protuberant. No masses, no organomegaly or tenderness. Bowel sounds are active. EXTREMITIES: No edema. Peripheral pulses are diminished. Reflexes are 1+. There is muscle wasting of the extremities. The patient does move his extremities well. SKIN: No lesions observed. Assessment and Plan Assessment and Plan IMPRESSION 1. Large left pneumothorax with compressive atelectasis in left lung. 2. UTI and sepsis. 3. Basilar pneumonia. 4. History of hypertension. 5. Diabetes mellitus. 6. Altered mental status. Plan : 1. Rpt CXR in am 2. O2 3 L. 3. Cont Duoneb nebs Bid. 4. OK to rehab if CXR stable 5. IS at bedside qid, 6. PT evaluation 7. Continue antibiotics per Blaze Infante MD Oct 28, 2017 19:31
[2017-10-28] MEDS: DONEPEZIL HCL 5 MG TAB PO SCH (21:20)
[2017-10-28] MEDS: INSULIN DETEMIR 100 UNITS/ML VIAL SQ SCH (21:20)
[2017-10-29] VITALS (12 sets, daily range): BP systolic 106–123; BP diastolic 56–66; PULSE 70–101; RESP 16–20; TEMP 97.4–98.8; O2SAT 94–96
--- NOTE | 2017-10-29 04:43 | RADRPT ---
EXAM DATE/TIME: 10/29/2017 04:09 [place] COMPARISON: CHEST SINGLE AP, October 28, 2017, 4:15. INDICATIONS : Short of breath MEDICAL HISTORY : Hypertension. Hiatal hernia. Diabetes mellitus type II. SURGICAL HISTORY : None. ENCOUNTER: Subsequent ACUITY: 2 weeks PAIN SCORE: 0/10 LOCATION: Bilateral chest FINDINGS: There continues to be a left pneumothorax measurement 2.5 cm over the apex. There is some air seen at the right base between the inferior aspect of the left lung and the left hemidiaphragm. There is inc reased density at the left base likely related to atelectasis or consolidation. There is increased de nsity at the right base. The heart size is normal. Aortic calcifications are present. CONCLUSION: 1. Persistent left pneumothorax, this appears fairly similar in size to the prior exam although now s ubpleural air can be seen at the left base. 2. Bibasilar areas of consolidation or atelectasis. Chin Magallanes MD on October 29, 2017 at 4:38 Board Certified Radiologist. This report was verified electronically.
[2017-10-29] MEDS: LEVOTHYROXINE SODIUM 100 MCG TAB PO SCH (06:20)
[2017-10-29] MEDS: POTASSIUM CHLORIDE 20 MEQ CONTROLLED RELEASE TAB PO SCH (08:52)
[2017-10-29] MEDS: ESCITALOPRAM OXALATE 10 MG TAB PO SCH (08:52)
[2017-10-29] MEDS: DILTIAZEM-CD 120 MG CAP ER PO SCH (08:52)
[2017-10-29] MEDS: HYDROCORTISONE 10 MG TAB PO SCH (08:52)
[2017-10-29] MEDS: glyBURIDE 5 MG TAB PO SCH (08:52)
[2017-10-29] MEDS: LACTOBACILLUS ACIDOPHILUS TAB PO SCH ×2 (08:52→20:36)
[2017-10-29] MEDS: SULFAMETHOXAZOLE-TRIMETHOPRIM 400-80 MG TAB PO SCH (08:52)
[2017-10-29] MEDS: TAMSULOSIN HCL 0.4 MG CAP PO SCH (08:53)
[2017-10-29] MEDS: LISINOPRIL 5 MG TAB PO SCH (08:53)
[2017-10-29] MEDS: METOPROLOL SUCCINATE 50 MG EXTENDED RELEASE TAB PO SCH (08:53)
[2017-10-29] MEDS: INSULIN ASPART SUPPLEMENTAL SCALE SQ SCH ×4 (08:53→20:37)
[2017-10-29] MEDS: ASPIRIN 81 MG CHEW TAB CHEW SCH ×2 (08:53→20:36)
[2017-10-29] MEDS: SODIUM CHLORIDE 0.9% FLUSH 10 ML FLUSH IV FLUSH SCH ×2 (08:53→20:37)
--- NOTE | 2017-10-29 13:07 | HHI.PR ---
Subjective Remarks No complaints.Left chest tube is out . CXR still shows a small left Pneumothorax ,Stable. On O2 2 L. Overall improved. Objective Vital Signs Date Time Temp Pulse Resp B/P (MAP) Pulse Ox O2 Delivery O2 Flow Rate FiO2 10/29/17 11:49 97.6 77 18 107/64 (78) 96 10/29/17 10:47 94 Nasal Cannula 3.00 10/29/17 08:00 101 10/29/17 08:00 98.2 101 20 106/66 (79) 95 10/29/17 07:00 Nasal Cannula 3.00 10/29/17 04:54 97.4 79 16 110/56 (74) 95 10/29/17 04:01 77 10/29/17 00:04 76 10/28/17 23:45 97.7 77 16 130/61 (84) 95 10/28/17 22:06 77 10/28/17 21:59 Nasal Cannula 3.00 10/28/17 21:00 Nasal Cannula 3.00 10/28/17 20:55 97.9 74 16 124/60 (81) 96 10/28/17 18:00 84 10/28/17 16:00 82 10/28/17 16:00 97.3 82 16 119/61 (80) 95 10/28/17 15:00 72 10/28/17 14:00 65 I/O 10/28/17 10/28/17 10/28/17 10/29/17 10/29/17 10/29/17 07:00 15:00 23:00 07:00 15:00 23:00 Intake Total 600 ml 480 ml Output Total 800 ml 1250 ml 750 ml Balance -200 ml -770 ml -750 ml Intake Oral 600 ml 480 ml Output Urine Total 800 ml 1250 ml 750 ml Objective Remarks GENERAL: This is a thinly built elderly man, not dyspneic. HEENT: Head normocephalic. Pupils are reactive. Throat clear. NECK: Supple. No venous distension. No thyromegaly. CHEST: Equal movements with distant breath sounds. Occ Crackles at left base. HEART: The heart sounds are irregular. S1 and S2. No murmur. No S3. ABDOMEN: Soft, protuberant. No masses, no organomegaly or tenderness. Bowel sounds are active. EXTREMITIES: No edema. Peripheral pulses are diminished. Reflexes are 1+. There is muscle wasting of the extremities. The patient does move his extremities well. SKIN: No lesions observed. Assessment and Plan Assessment and Plan IMPRESSION 1. Large left pneumothorax with compressive atelectasis in left lung. 2. UTI and sepsis. 3. Basilar pneumonia. 4. History of hypertension. 5. Diabetes mellitus. 6. Altered mental status. Plan : 1. Will Get CT surgery to see. 2. O2 3 L. 3. Cont Duoneb nebs Bid. 4. OK to rehab if cleared by CT Surgery 5. IS at bedside qid, 6. PT evaluation 7. Continue antibiotics per Blaze Infante MD Oct 29, 2017 13:07
--- NOTE | 2017-10-29 18:42 | HHI.PR ---
Subjective Remarks patient denies cp/sob. Denies fevers or chills. Objective Vitals Vital Signs Date Time Temp Pulse Resp B/P (MAP) Pulse Ox O2 Delivery O2 Flow Rate FiO2 10/29/17 17:40 97.8 75 18 112/61 (78) 95 10/29/17 11:49 97.6 77 18 107/64 (78) 96 10/29/17 10:47 94 Nasal Cannula 3.00 10/29/17 08:00 101 10/29/17 08:00 98.2 101 20 106/66 (79) 95 10/29/17 07:00 Nasal Cannula 3.00 10/29/17 04:54 97.4 79 16 110/56 (74) 95 10/29/17 04:01 77 10/29/17 00:04 76 10/28/17 23:45 97.7 77 16 130/61 (84) 95 10/28/17 22:06 77 10/28/17 21:59 Nasal Cannula 3.00 10/28/17 21:00 Nasal Cannula 3.00 10/28/17 20:55 97.9 74 16 124/60 (81) 96 I/O 10/28/17 10/28/17 10/28/17 10/29/17 10/29/17 10/29/17 06:59 14:59 22:59 06:59 14:59 22:59 Intake Total 600 ml 480 ml Output Total 800 ml 1250 ml 750 ml Balance -200 ml -770 ml -750 ml Intake Oral 600 ml 480 ml Output Urine Total 800 ml 1250 ml 750 ml Imaging Last Impressions Chest X-Ray 10/29/17 0600 Signed Impressions: Service Date/Time: Sunday, October 29, 2017 04:09 - CONCLUSION: 1. Persistent left pneumothorax, this appears fairly similar in size to the prior exam although now subpleural air can be seen at the left base. 2. Bibasilar areas of consolidation or atelectasis. Chin Magallanes MD Tunnelled Chest Tube Removal 10/28/17 1305 Signed Impressions: Service Date/Time: Saturday, October 28, 2017 13:05 - CONCLUSION: Uncomplicated chest tube removal. Nash Armijo MD Chest CT 10/20/17 0000 Signed Impressions: Service Date/Time: Friday, October 20, 2017 15:54 - CONCLUSION: 1. [place] loop thoracostomy tube in the left hemithorax is positioned posteriorly in the small left pleural effusion. 2. Persistent left-sided pneumothorax. Would consider a surgical thoracostomy tube more anteriorly to treat the same. 3. Right apical bleb. Small bilateral pleural effusions with concomitant bibasilar atelectatic changes. 4. Cholelithiasis. Nash Armijo MD Chest Tube Insertion 10/16/17 1934 Signed Impressions: Service Date/Time: October 22:20 - CONCLUSION: Uncomplicated chest tube placement as above. Luis M Duff MD Abdomen/Pelvis CT 10/15/17 0000 Signed Impressions: Service Date/Time: October 12:25 - CONCLUSION: 1. Large pneumothorax on the left. Chest tube likely needed. 2. Bibasilar consolidation and pleural effusions. 3. Cholelithiasis. 4. Right-sided hydronephrosis and hydroureter. Left-sided hydronephrosis has resolved. 5. Distal abdominal aortic aneurysm measuring 3.8 x 3.2 cm. 6. Large hernia abdominal wall containing multiple bowel loops. No signs of obstruction or strangulation 7. Massive enlargement of the prostate gland. 8. Hyperdense material within decompressed urinary bladder, can be thrombus. Kris Levin MD Head CT 10/14/17 0000 Signed Impressions: Service Date/Time: Saturday, October 14, 2017 05:16 - CONCLUSION: Stable noncontrast head CT. Emanuel Gandara MD Objective Remarks GENERAL: Well-nourished, well-developed elderly male patient. SKIN: Warm and dry. HEAD: Normocephalic. EYES: No scleral icterus. No injection or drainage. NECK: Supple, trachea midline. No JVD or lymphadenopathy. CARDIOVASCULAR: Regular rate and rhythm without murmurs, gallops, or rubs. Chest tube to left chest. RESPIRATORY: Breath sounds equal bilaterally. No accessory muscle use. GASTROINTESTINAL: Abdomen soft, non-tender, nondistended. Suprapubic catheter present. EXTREMITIES: No cyanosis, or edema. NEUROLOGICAL: Awake, alert, and oriented to self, place. Non-focal. Medications and IVs Current Medications Medications (Trade) Dose Ordered Sig/Shanel Route Start Time Stop Time Status Last Admin (D50w (Vial) Inj) 50 ml UNSCH PRN IV PUSH 10/12/17 12:00 (Glucagon Inj) 1 mg UNSCH PRN OTHER 10/12/17 12:00 (NovoLOG SUPPLEMENTAL SCALE) 1 ACHS SLIDING SCALE SQ 10/12/17 12:00 10/29/17 17:53 (NS Flush) 2 ml UNSCH PRN IV FLUSH 10/12/17 12:00 (NS Flush) 2 ml BID IV FLUSH 10/12/17 21:00 10/29/17 08:53 (Tylenol) 650 mg Q4H PRN PO 10/12/17 12:00 (Zofran Inj) 4 mg Q6H PRN IVP 10/12/17 12:00 10/20/17 09:15 (Tylenol) 650 mg Q6H PRN PO 10/12/17 12:00 (Narcan Inj) 0.4 mg UNSCH PRN IV PUSH 10/12/17 12:00 (Milk Of Magnesia Liq) 30 ml Q12H PRN PO 10/12/17 12:00 (Lactinex) 1 tab Q12HR PO 10/12/17 21:00 10/29/17 08:52 (Aspirin Chew) 81 mg BID CHEW 10/12/17 21:00 10/29/17 08:53 (Aricept) 5 mg HS PO 10/12/17 21:00 10/28/17 21:20 (Lexapro) 5 mg DAILY PO 10/13/17 09:00 10/29/17 08:52 (Diabeta) 5 mg DAILY@0800 PO 10/13/17 08:00 10/29/17 08:52 (Cortef) 2.5 mg DAILY PO 10/13/17 09:00 10/29/17 08:52 (Synthroid) 100 mcg DAILY@0600 PO 10/13/17 06:00 10/29/17 06:20 (Prinivil) 10 mg DAILY PO 10/13/17 09:00 Future Hold 10/13/17 08:43 (Toprol Xl) 50 mg DAILY PO 10/13/17 09:00 10/29/17 08:53 (KCl) 20 meq DAILY PO 10/13/17 09:00 10/29/17 08:52 (Silvadene 1% Cream (50 Gm)) 1 applic DAILY PRN TOPICAL 10/12/17 14:30 (Flomax) 0.4 mg DAILY PO 10/13/17 09:00 10/29/17 08:53 (Pill Splitter) 1 ea UNSCH PRN OTHER 10/12/17 14:45 (Vasotec Inj) 2.5 mg Q6H PRN IV PUSH 10/12/17 15:00 10/13/17 06:34 (Catapres) 0.1 mg Q6H PRN PO 10/12/17 15:00 10/12/17 17:00 (Xanax) 0.125 mg Q6H PRN PO 10/16/17 14:45 (Levemir Inj) 5 units HS SQ 10/23/17 21:00 10/28/17 21:20 (Prinivil) 5 mg DAILY PO 10/24/17 09:00 10/29/17 08:53 (Bactrim 400-80 Mg) 1 tab DAILY PO 10/27/17 09:00 10/29/17 08:52 (Cardizem Cd) 120 mg DAILY PO 10/27/17 09:00 10/29/17 08:52 A/P Problem List: (1) Sepsis ICD Code: A41.9 - Sepsis, unspecified organism Status: Resolved (2) UTI (urinary tract infection) ICD Code: N39.0 - Urinary tract infection, site not specified Status: Acute (3) Suprapubic catheter dysfunction ICD Code: T83.010A - Breakdown (mechanical) of cystostomy catheter, initial encounter (4) Hypertension ICD Code: I10 - Essential (primary) hypertension Status: Chronic (5) Diabetes mellitus ICD Code: E11.9 - Type 2 diabetes mellitus without complications Status: Chronic (6) MRSA bacteremia ICD Code: R78.81 - Bacteremia (7) Debility ICD Code: R53.81 - Other malaise (8) Dementia ICD Code: F03.90 - Unspecified dementia without behavioral disturbance (9) Pneumothorax ICD Code: J93.9 - Pneumothorax, unspecified Assessment and Plan 89-year-old male Complex UTI (MRSA/Yeast), sepsis, Bacteremia/sepsis with MRSA bacteremia and in the blood culture Chronic suprapubic catheter due to BPH Catheter exchange in the ER on 10/12/17 Continue vancomycin until October 27 (today) total 14 days Continue Diflucan 7 days total Urology (Dr. Armstrong) and infectious disease (Dr. Plasencia) following Right hydronephrosis - however stable Cr, may be chronic VSS Congestive heart failure chronic systolic Baseline EF is 35% Continue baseline treatments - continue metoprolol , lisinopril Monitor closely for any fluid overload Chronic, pre-existing Pneumothorax, present at time of admit Chest tube present - chest x-ray 10/27 shows again stable small left pneumothorax Pulmonology consulted. Follow oxygen saturations Maintain oxygen saturations greater than 90% 10/28 CT removed today. Chest x-ray obtained today shows that the previously seen left chest tube is no longer present. They continues to be a similar- appearing left pneumothorax. Bibasilar areas of atelectasis or consolidation CXR to be repeated in am. DC Pending pulmonology clearance. 10/29 repeat chest x-ray shows persistence of pneumothorax. Discussed the case with Dr. Milton from pulmonology who recommends CT surgery evaluation for further recommendations. Generalized weakness Generalized debility Physical therapy A-fib with RVR Resolved - appears to have been a new onset, no reported history of Continue metoprolol Continue Cardizem Follow on telemetry Avoiding aspirin due to history of gastric ulcers 2-D echocardiogram with EF 30-35%, mild aortic valve regurgitation, mildly dilated descending thoracic aorta TSH within normal limits Diabetes mellitus type 2 Follow blood sugars - 100- 300s Insulin sliding scale, continue Levemir 5 units subcutaneous at bedtime Diabetic diet Hypertension Continue metoprolol, lisinopril Continue Cardizem Follow blood pressures Dementia with acute metabolic encephalopathy, encephalopathy appears resolved. Continue Aricept, reorientation Hypothyroidism Continue Synthroid TSH within normal limits buttock/sacral wound (stage 1) Superficial skin irritation Wound care following Air mattress present DVT Prophylaxis SCDs DNR status Palliative care following Discharge Planning Discharge pending CT surgery evaluation. Karthik Disla MD Oct 29, 2017 18:42
[2017-10-29] MEDS: DONEPEZIL HCL 5 MG TAB PO SCH (20:36)
[2017-10-29] MEDS: INSULIN DETEMIR 100 UNITS/ML VIAL SQ SCH (20:36)
[2017-10-30] VITALS (23 sets, daily range): BP systolic 103–136; BP diastolic 49–74; PULSE 68–91; RESP 16–18; TEMP 97.3–98.4; O2SAT 95–96
[2017-10-30] MEDS: LEVOTHYROXINE SODIUM 100 MCG TAB PO SCH (05:25)
[2017-10-30] MEDS: INSULIN ASPART SUPPLEMENTAL SCALE SQ SCH ×3 (08:00→17:50)
--- NOTE | 2017-10-30 08:21 | MB ---
cc: HUSSAIN SANTIAGO DATE OF CONSULTATION 10/29/2017 HISTORY OF THE PRESENT ILLNESS An 89-year-old male with multiple comorbidities apparently was admitted on this admission for respiratory distress and recurrent pneumothorax. The patient has been in an out of rehab and now is back home with a [employer]ING [employer] that checks on him different times during the day but he stays at home at night. Was admitted on his last admission August 21. He came in from a prison which showed at that time an incidental finding of a small anterior pneumothorax with a 6 mm pulmonary nodule in the right lung base. At that time he was also found to have a UTI. He has interval placement of suprapubic catheter and was treated for sepsis with urine showing MRSA. Dehydration was given IV fluids. On this admission and was found to have an increasing pneumothorax a large on the left as well as some bibasilar consolidation, pleural effusions. He underwent CT-guided placement of a chest tube on the left which was removed on the and we were consulted because of the small residual pneumothorax. The patient is currently very stable. The chest x-ray shows a small left pneumothorax measuring 2.5 cm which is stable. There is a fairly similar in size bibasilar consolidation. PAST MEDICAL HISTORY The patient's past medical history: 1. Diabetes mellitus. 2. Hypertension. 3. Hyperlipidemia. 4. Benign prostatic hypertrophy. 5. Obstructive uropathy status post suprapubic catheter. 6. Recurrent UTIs. 7. Hiatal hernia. 8. Gastric ulcers. 9. Hypothyroidism. PAST SURGICAL HISTORY Surgeries include: 1. Cystoscopy with suprapubic catheter placement. 2. Gastric perf repair. 3. Tonsillectomy. 4. Cataract surgery. ALLERGIES INCLUDE HYDROCODONE, ADHESIVE TAPE. MEDICATIONS Home meds include: 1. Ciprofloxacin. 2. Aricept. 3. Flomax. 4. Metoprolol. 5. Lisinopril. 6. Aspirin. 7. Lexapro. 8. Potassium. 9. Hydrocortisone. 10. Acarbos. 11. Metformin. 12. Glyburide. 13. Levothyroxine. REVIEW OF SYSTEMS As above the HPI. Other 12 systems unremarkable. PHYSICAL EXAMINATION VITAL SIGNS: Blood pressure 110/60, heart rate 77, temperature 97.6. GENERAL: Patient is awake, a very poor historian. He does have a neighbor, friend at the bedside. HEENT: Head is normocephalic, atraumatic. He is somewhat disheveled. Pupils equal and reactive with some arcus senilis. NECK: Supple. No JVD. CARDIOVASCULAR: Heart sounds S1-S2, regular rate and rhythm. LUNGS: Diminished in the bases, more on the left versus the right. He has got a dressing over his prior chest tube site. No subcu emphysema noted. ABDOMEN: Soft. Flat, nontender. EXTREMITIES: Reveal no cyanosis, clubbing or edema. LABORATORY DATA Lab work shows hemoglobin 12, hematocrit of 37, white cell count of 11, platelet count 492. Sodium 138, potassium 3.8, BUN 26, creatinine 0.54. TSH of 2.4. Urine shows on the a UTI which did grow out ashli glabrata. Blood cultures did show MRSA. Repeat is negative on the for five days. IMAGING His chest x-ray today again showed a small left pneumothorax 2.5 over the apex which is stable. At this time the patient is in no acute distress. Would recommend just monitoring with a follow-up chest x-ray as an outpatient. The patient can be discharged when cleared medically. Recommend that he goes to a assisted facility and not home unless he has / care. If there are any further questions please contact Dr. Santiago. DICTATED BY: MONTY Sorto MD NIGHAT Sam/KK /4:11 PM /8:14 AM
[2017-10-30] MEDS ORDERED: DILT120C50 PO (10:35)
[2017-10-30] MEDS ORDERED: SULF400T18 PO (10:35)
--- NOTE | 2017-10-30 10:39 | HHI.DCPOC ---
Discharge Care Plan Diagnosis: (1) Atrial fibrillation with RVR (2) Chronic pneumothorax (3) Weakness generalized (4) Dementia (5) Wound of sacral region (6) Sepsis (7) UTI (urinary tract infection) (8) Diabetes mellitus (9) Pneumonia (10) Hypertension Goals to Promote Your Health * To prevent worsening of your condition and complications * To maintain your health at the optimal level Directions to Meet Your Goals Take your medications as prescribed Follow your dietary instruction Follow activity as directed Keep your appointments as scheduled Take your immunizations and boosters as scheduled If your symptoms worsen call your PCP, if no PCP go to Urgent Care Center or Emergency Room Smoking is Dangerous to Your Health. Avoid second hand smoke Call the 24-hour hour crisis hotline for domestic abuse at Karthik Disla MD Oct 30, 2017 10:39
[2017-10-30] MEDS: LACTOBACILLUS ACIDOPHILUS TAB PO SCH (10:45)
[2017-10-30] MEDS: ASPIRIN 81 MG CHEW TAB CHEW SCH (10:45)
[2017-10-30] MEDS: SULFAMETHOXAZOLE-TRIMETHOPRIM 400-80 MG TAB PO SCH (10:45)
[2017-10-30] MEDS: TAMSULOSIN HCL 0.4 MG CAP PO SCH (10:46)
[2017-10-30] MEDS: ESCITALOPRAM OXALATE 10 MG TAB PO SCH (10:46)
[2017-10-30] MEDS: LISINOPRIL 5 MG TAB PO SCH (10:46)
[2017-10-30] MEDS: POTASSIUM CHLORIDE 20 MEQ CONTROLLED RELEASE TAB PO SCH (10:46)
[2017-10-30] MEDS: DILTIAZEM-CD 120 MG CAP ER PO SCH (10:46)
[2017-10-30] MEDS: METOPROLOL SUCCINATE 50 MG EXTENDED RELEASE TAB PO SCH (10:46)
[2017-10-30] MEDS: HYDROCORTISONE 10 MG TAB PO SCH (10:47)
[2017-10-30] MEDS: glyBURIDE 5 MG TAB PO SCH (10:47)
[2017-10-30] MEDS: SODIUM CHLORIDE 0.9% FLUSH 10 ML FLUSH IV FLUSH SCH (10:48)
--- NOTE | 2017-10-30 12:56 | HHI.PR ---
Subjective Remarks No complaints.Left chest tube is out . CXR still shows a small left Pneumothorax ,Stable.CT surgery advised to observe with serial X rays. On O2 3 L. Overall improved. Objective Vital Signs Date Time Temp Pulse Resp B/P (MAP) Pulse Ox O2 Delivery O2 Flow Rate FiO2 10/30/17 12:47 98.4 75 16 116/74 (88) 95 10/30/17 08:27 98.0 91 18 136/70 (92) 95 10/30/17 06:00 74 10/30/17 05:00 74 10/30/17 04:04 98.3 71 18 116/64 (81) 96 10/30/17 04:00 74 10/30/17 03:00 70 10/30/17 02:00 70 10/30/17 01:00 70 10/30/17 00:00 72 10/30/17 00:00 97.6 76 18 103/49 (67) 95 10/29/17 23:00 76 10/29/17 22:00 80 10/29/17 21:33 Nasal Cannula 3.00 10/29/17 21:00 70 10/29/17 20:01 96 Nasal Cannula 3.00 Humidified 10/29/17 20:00 77 10/29/17 20:00 98.8 76 18 123/60 (81) 96 10/29/17 19:00 80 10/29/17 17:40 97.8 75 18 112/61 (78) 95 I/O 10/29/17 10/29/17 10/29/17 10/30/17 10/30/17 10/30/17 07:00 15:00 23:00 07:00 15:00 23:00 Intake Total 480 ml Output Total 750 ml 950 ml 650 ml Balance -750 ml -950 ml -170 ml Intake Oral 480 ml Output Urine Total 750 ml 950 ml 650 ml # Bowel Movements 2 Objective Remarks GENERAL: This is a thinly built elderly man, not dyspneic. HEENT: Head normocephalic. Pupils are reactive. Throat clear. NECK: Supple. No venous distension. No thyromegaly. CHEST: Equal movements with distant breath sounds. wheeze +. HEART: The heart sounds are irregular. S1 and S2. No murmur. No S3. ABDOMEN: Soft, protuberant. No masses, no organomegaly or tenderness. Bowel sounds are active. EXTREMITIES: No edema. Peripheral pulses are diminished. Reflexes are 1+. There is muscle wasting of the extremities. The patient does move his extremities well. SKIN: No lesions observed. Assessment and Plan Assessment and Plan IMPRESSION 1. Large left pneumothorax with compressive atelectasis in left lung. 2. UTI and sepsis. 3. Basilar pneumonia. 4. History of hypertension. 5. Diabetes mellitus. 6. Altered mental status. Plan : 1. OK to go home with Home health. 2. O2 3 L. 3. Cont Duoneb nebs Bid. 4. Will NeedF/U CXR in 1 week and 3 weeks 5. IS at bedside qid, 6. PT evaluation 7. Will see as OP in 2 weeks Blaze Russ MD Oct 30, 2017 12:55
--- NOTE | 2017-10-30 16:16 | HHI.DS ---
Discharge Summary Admission Date Oct 12, 2017 at 11:57 Admitting Diagnosis UTI, weakness (1) Sepsis ICD Code: A41.9 - Sepsis, unspecified organism Status: Resolved (2) UTI (urinary tract infection) ICD Code: N39.0 - Urinary tract infection, site not specified Status: Acute (3) Suprapubic catheter dysfunction ICD Code: T83.010A - Breakdown (mechanical) of cystostomy catheter, initial encounter (4) Hypertension ICD Code: I10 - Essential (primary) hypertension Status: Chronic (5) Diabetes mellitus ICD Code: E11.9 - Type 2 diabetes mellitus without complications Status: Chronic (6) MRSA bacteremia ICD Code: R78.81 - Bacteremia (7) Debility ICD Code: R53.81 - Other malaise (8) Dementia ICD Code: F03.90 - Unspecified dementia without behavioral disturbance (9) Pneumothorax ICD Code: J93.9 - Pneumothorax, unspecified Brief History - From Admission Written by Jennifer Cannon, acting as scribe for Dr. Castro on 10/12/17 at 13: 02. 89-year-old male with history of DM, HTN, HLD, BPH, obstructive uropathy s/p suprapubic catheter, recurrent UTIs, presents from home with increasing confusion, weakness, and concern for UTI. Patient is currently awake, alert, oriented to person, place, and month/year; however has difficulty recalling all events leading up to his admission. The patient is seen with a family friend at bedside who assists with the history. Earlier today the patient's daughter Lola was at bedside and discussed with the ER physician as well. Recently the patient has been treated for multiple infections including MRSA UTI and C.difficile. Reportedly over the past week the patient has become more lethargic , confused, and unable to ambulate. An at-home urinalysis was performed which revealed a UTI and he was started on Ciprofloxacin yesterday by his PCP. However , today the patient continued to worsen therefore the daughter requested the [facility] aide send him to the ER today. The patient denies any recent fevers, chills , headache, lightheadedness, chest pain, palpitations, cough, shortness of breath, abdominal pain, or diarrhea. The family friend at bedside states the patient has been hallucinating and not making much sense which is much worse than his baseline. She also reports that he hasn't been eating well at home. He currently lives alone, and has home health care nursing for 4 hours a day. The family friend is concerned that he can no longer care for himself and likely needs 24hr care. The daughter also discussed with ER physician regarding possibility of hospice. PE at Discharge GENERAL: Well-nourished, well-developed elderly male patient. SKIN: Warm and dry. HEAD: Normocephalic. EYES: No scleral icterus. No injection or drainage. NECK: Supple, trachea midline. No JVD or lymphadenopathy. CARDIOVASCULAR: Regular rate and rhythm without murmurs, gallops, or rubs. Chest tube to left chest. RESPIRATORY: Breath sounds equal bilaterally. No accessory muscle use. GASTROINTESTINAL: Abdomen soft, non-tender, nondistended. Suprapubic catheter present. EXTREMITIES: No cyanosis, or edema. NEUROLOGICAL: Awake, alert, and oriented to self, place. Non-focal. Pt Condition on Discharge: Stable Discharge Disposition: Discharge to SNF Discharge Instructions DIET: Follow Instructions for: Diabetic Diet Activities you can perform: See Additionl Instruction Other Activity Instructions: as per PT instructions Karthik Disla MD Oct 30, 2017 16:16
== END 2017-10-30 18:26 | DRG 698 ==
LOC: NEPE 09:14 → NEDA 11:52 → OBSVTOIN 11:57 → N05B 13:32 → N03B 10-13 04:28 → HCIS 10-15 16:19
PROVIDERS: ADMIT Hospitalist; ATTEND Hospitalist
PROC: 0T2BX0Z Change Drainage Device in Bladder, External Approach (ICD-10-PCS; principal; 2017-10-12)
PROC: 0W9B30Z Drainage of Left Pleural Cavity with Drainage Device, Percutaneous Approach (ICD-10-PCS; 2017-10-16)
DX: N99.511 Cystostomy infection (principal); A41.9 Sepsis, unspecified organism; G93.41 Metabolic encephalopathy; J18.9 Pneumonia, unspecified organism; L89.151 Pressure ulcer of sacral region, stage 1; I11.0 Hypertensive heart disease with heart failure; I50.22 Chronic systolic (congestive) heart failure; R44.3 Hallucinations, unspecified; J93.81 Chronic pneumothorax; N13.30 Unspecified hydronephrosis; J98.11 Atelectasis; N13.8 Other obstructive and reflux uropathy; T83.090A Other mechanical complication of cystostomy catheter, initial encounter; N39.0 Urinary tract infection, site not specified; E11.65 Type 2 diabetes mellitus with hyperglycemia; F03.90 Unspecified dementia, unspecified severity, without behavioral disturbance, psychotic disturbance, mood disturbance, and anxiety; Z87.440 Personal history of urinary (tract) infections; N40.1 Benign prostatic hyperplasia with lower urinary tract symptoms; E78.5 Hyperlipidemia, unspecified; K44.9 Diaphragmatic hernia without obstruction or gangrene; Z87.11 Personal history of peptic ulcer disease; E03.9 Hypothyroidism, unspecified; Y73.8 Miscellaneous gastroenterology and urology devices associated with adverse incidents, not elsewhere classified; Z87.891 Personal history of nicotine dependence; Z23 Encounter for immunization; I48.91 Unspecified atrial fibrillation; I71.4 Abdominal aortic aneurysm, without rupture; Z51.5 Encounter for palliative care; H35.30 Unspecified macular degeneration; Z66 Do not resuscitate; Z68.23 Body mass index [BMI] 23.0-23.9, adult; K43.9 Ventral hernia without obstruction or gangrene; Z86.14 Personal history of Methicillin resistant Staphylococcus aureus infection; K80.20 Calculus of gallbladder without cholecystitis without obstruction; R91.1 Solitary pulmonary nodule; E86.0 Dehydration; L98.499 Non-pressure chronic ulcer of skin of other sites with unspecified severity; I35.1 Nonrheumatic aortic (valve) insufficiency; N13.9 Obstructive and reflux uropathy, unspecified; M54.30 Sciatica, unspecified side; Z79.84 Long term (current) use of oral hypoglycemic drugs
CPT/HCPCS: 32557; 36600; 70450; 71010; 71250; 74176; 80048; 80053; 80202; 81001; 82565; 82805; 82948; 83036; 83605; 84443; 85025; 85027; 86403; 87040; 87086; 87147; 87186; 87205; 87641; 90686; 93005; 93306; 94150; 94640; 94664; 94667; 96360; 99152; 99153; C1729; C1769; J0171; J0461; J1580; J1815; J2250; J2405; J2543; J3010; J3370; J7030; J7040; J7050; Q2038; Q9963